=== PATIENT | female | born 1980 | race Caucasian/White ===

== ENCOUNTER 2019-05-27 17:27 | Observation (INO) | payer BC ==
--- NOTE | 2019-05-27 18:34 | RAD REPORT ---
EXAM DESCRIPTION: CT - Head Brain Wo Cont - 05/27/2019 6:26 pm CLINICAL HISTORY: Headache COMPARISON: None. TECHNIQUE: Computed axial tomography of the head was obtained. IV contrast was not requested. All CT scans are performed using dose optimization technique as appropriate and may include automated exposure control or mA/KV adjustment according to patient size. FINDINGS: An intracranial bleed is not seen . The ventricles are normal in caliber. No extra-axial fluid collection is noted. Fluid within the sinuses/ mastoids is not seen. IMPRESSION: No acute intracranial abnormality is seen. If patient's symptoms persist MRI of the bra in would be recommended.
[2019-05-27] MEDS ORDERED: ONDANSETRON 4 MG/2 ML VIAL ONE ×2 (18:39→20:32)
[2019-05-27] MEDS ORDERED: NA CHLORIDE 0.9% 1,000 ML ONE ×2 (18:39→19:48)
[2019-05-27] MEDS ORDERED: KETOROLAC 30 MG/ML INJ ONE (18:40)
--- NOTE | 2019-05-27 18:48 | RAD REPORT ---
EXAM DESCRIPTION: [facility] Single View05/27/2019 6:38 pm CLINICAL HISTORY: cough COMPARISON: 2012 FINDINGS: The lungs appear clear of acute infiltrate. The heart is normal size IMPRESSION: No acute abnormalities displayed
[2019-05-27 19:12] LABS: Absolute Lymphocytes (CBC) 3.1 K/uL (0.7-4.9); Basophils % 0.8 % (0-1.3); Hematocrit 34.6 % (36.0-45.0); Lymphocytes % 40.3 % (15.3-44.8); MPV 8.2 fL (7.6-11.3); RBC Red Blood Cell Count 3.69 M/uL (3.86-4.86)
[2019-05-27 19:15] LABS: Protime INR 1.08
[2019-05-27 19:31] LABS: ALT/SGPT 19 U/L (12-78); AST/SGOT 11 U/L (15-37); Albumin 3.9 g/dL (3.4-5.0); Alkaline Phosphatase 68 U/L (45-117); BUN Blood Urea Nitrogen 11 mg/dL (7-18); Bicarbonate 30 mmol/L (21-32); Bilirubin Direct 0.1 mg/dL (0-0.2); Bilirubin Total 0.4 mg/dL (0.2-1.0); Glucose Level 95 mg/dL (74-106); Lipase 82 U/L (73-393); Magnesium 2.1 mg/dL (1.8-2.4); NT PRO-BNP 38 pg/mL (<125); Potassium 3.9 mmol/L (3.5-5.1); Protein, Total 8.1 g/dL (6.4-8.2); Sodium Level 138 mmol/L (136-145); Troponin (Emerg Dept Use Only) < 0.02 ng/mL (0.0-0.045)
[2019-05-27 20:11] LABS: Urine Blood NEGATIVE (NEG); Urine Glucose NEGATIVE (NEG); Urine Protein NEGATIVE (NEG); Urine Specific Gravity 1.015 (1.005-1.030); Urine pH 6.5 (5.0-7.0)
--- NOTE | 2019-05-27 20:29 | ER ---
Nurse's Notes [facility] Name: Naz Boyle Age: 39 yrs Sex: Female : 1980 Arrival Date: 05/27/2019 Time: 17:28 Bed 20 Private MD: Diagnosis: Migraine;Urinary tract infection, site not specified;Hypotension-on midorone Presentation: 05/27 17:29 Presenting complaint: Patient states: occipital and temporal headache started Arash, sv photosensitivity, nausea, blurry vision started yesterday. Transition of care: patient was not received from another setting of care. Onset of symptoms was May 24, 2019. Risk Assessment: Do you want to hurt yourself or someone else? Patient reports no desire to harm self or others. Care prior to arrival: Medication(s) given: Motrin, taken at 1200 today. 17:29 Method Of Arrival: Wheelchair sv 17:29 Acuity: MIGUEL 3 sv 17:38 Initial Sepsis Screen: Does the patient meet any 2 criteria? No. Patient's initial rb1 sepsis screen is negative. Does the patient have a suspected source of infection? No. Patient's initial sepsis screen is negative. Triage Assessment: 17:38 Headache History: The patient has had previous headaches and this one is similar to rb1 previous episodes. 17:38 Pain: Also complains of nausea, photophobia. rb1 Historical: - Allergies: 17:32 No Known Allergies; sv - PMHx: 17:32 Seizures; Hypothyroidism; hypotension; Lupus; Rheumatoid Arthritis; RLS; Bradycardia; sv - PSHx: 17:32 Appendectomy; Hysterectomy; ; sv - Immunization history:: Adult Immunizations up to date. - Ebola Screening: : Patient negative for fever greater than or equal to 101.5 degrees Fahrenheit, and additional compatible Ebola Virus Disease symptoms. - Family history:: not pertinent. - Social history:: Smoking status: Patient uses tobacco products. Screenin:38 Abuse screen: Denies threats or abuse. Nutritional screening: No deficits noted. rb1 Tuberculosis screening: No symptoms or risk factors identified. Fall Risk None identified. Assessment: 17:38 General: Appears uncomfortable, Behavior is calm, cooperative. Pain: Complains of pain rb1 in head Pain currently is 9 out of 10 on a pain scale. at worst was 10 out of 10 on a pain scale. Pain began Arash. Neuro: Level of Consciousness is awake, alert, obeys commands, Oriented to person, place, time, situation. Neuro: Reports blurred vision headache occipital area, bilateral temples photophobia. Cardiovascular: Capillary refill < 3 seconds is brisk in bilateral fingers. Respiratory: Airway is patent Respiratory effort is even, unlabored, Respiratory pattern is regular, symmetrical. GI: Reports nausea. : No signs and/or symptoms were reported regarding the genitourinary system. Derm: Skin is pink, warm \T\ dry. Musculoskeletal: Range of motion: intact in all extremities. 18:35 Reassessment: Patient appears in no apparent distress at this time. No changes from rb1 previously documented assessment. 19:10 Reassessment: Pt reports that blood pressure is low normally. General: Appears in no tl2 apparent distress. Behavior is calm, drowsy. Pain: Complains of pain in right base of the skull Pain currently is 8 out of 10 on a pain scale. Neuro: Level of Consciousness is awake, obeys commands, Oriented to person, place, time, situation. Cardiovascular: Denies chest pain. Respiratory: Airway is patent Respiratory effort is even, unlabored, Respiratory pattern is regular. GI: Reports nausea. : No signs and/or symptoms were reported regarding the genitourinary system. Derm: Skin is pink, warm \T\ dry. Vital Signs: 17:32 BP 83 / 53; Pulse 64; Resp 16; Temp 98; Pulse Ox 97% ; Weight 77.11 kg; Height 5 ft. 11 sv in. (180.34 cm); 18:30 BP 85 / 53; Pulse 53; Resp 16; Pulse Ox 100% on R/A; rb1 19:28 BP 84 / 59; Pulse 54; Resp 18; Pulse Ox 96% on R/A; tl2 20:08 BP 90 / 60; Pulse 57; Resp 10; Pulse Ox 98% on R/A; tl2 21:06 BP 83 / 56; Pulse 61; Resp 12; Pulse Ox 95% on R/A; tl2 17:32 Body Mass Index 23.71 (77.11 kg, 180.34 cm) sv ED Course: 17:28 Patient arrived in ED. as 17:30 Triage completed. sv 17:33 Arm band placed on. sv 17:38 Patient has correct armband on for positive identification. Bed in low position. Call rb1 light in reach. Side rails up X 1. Pulse ox on. NIBP on. 17:46 Any Schafer RN is Primary Nurse. rb1 17:48 Pramod Sanchez MD is Attending Physician. anneliese 18:26 CT Head Brain wo Cont In Process Unspecified. EDMS 18:40 XRAY Chest (1 view) In Process Unspecified. EDMS 18:45 Missed attempt(s): 22 gauge in right antecubital area. rb1 18:50 Inserted saline lock: 22 gauge in left antecubital area, using aseptic technique. Blood rb1 collected. 19:05 Report given to LIZZY Rivas. rb1 20:25 Dafne Larry MD is Hospitalizing Provider. anneliese 21:06 No provider procedures requiring assistance completed. Patient admitted, IV remains in tl2 place. intact, No redness/swelling at site. Administered Medications: 18:50 Drug: NS 0.9% 1000 ml Route: IV; Rate: 1 bolus; Site: left antecubital; rb1 19:50 Follow up: IV Status: Completed infusion; IV Intake: 1000ml tl2 18:50 Drug: Zofran 4 mg Route: IVP; Site: left antecubital; rb1 19:30 Follow up: Response: No adverse reaction tl2 18:50 Drug: TORadol 30 mg Route: IVP; Site: left antecubital; rb1 19:30 Follow up: Response: No adverse reaction; Pain is unchanged, physician notified tl2 19:51 Drug: NS 0.9% 1000 ml Route: IV; Rate: 125 ml/hr; Site: left antecubital; tl2 20:41 Drug: fentaNYL (PF) 25 mcg Route: IVP; Site: left antecubital; tl2 21:30 Follow up: Response: No adverse reaction; Pain is decreased; RASS: Drowsy (-1) tl2 20:42 Drug: Zofran 4 mg Route: IVP; Site: left antecubital; tl2 21:00 Follow up: Response: No adverse reaction tl2 20:42 Drug: Rocephin 1 grams Route: IV; Rate: per protocol; Site: left antecubital; tl2 05/28 00:58 Follow up: IV Status: Completed infusion; IV Intake: 10ml tl2 01:00 Not Given (Other Intervention Used): fentaNYL (PF) 25 mcg IVP once; RASS on ADMIN: tl2 Combtv4, Very Agttd3, Agttd2, Rstlss1, AlertClm0, Drwsy-1, Lt Sdtn-2, Mod Sdtn-3, Dp Sdtn-4, UnArsble-5 Intake: 05/27 19:50 IV: 1000ml; Total: 1000ml. tl2 05/28 00:58 IV: 10ml; Total: 1010ml. tl2 Outcome: 05/27 20:27 Decision to Hospitalize by Provider. anneliese 21:06 Admitted to ER Hold. Please see [facility] for further documentation. tl2 21:06 Condition: stable 21:06 Discharge instructions given to patient, family. 05/28 12:13 Patient left the ED. em1 Signatures: Dispatcher [employer] Chloe Estevez RN RN Pramod Perkins MD MD cha Martinez, Amelia as Martinez, Eric em1 Any Schafer, RN RN rb1 Evelyn Gary, LIZZY RN tl2 Corrections: (The following items were deleted from the chart) 05/27 17:33 17:32 Pulse 64bpm; Resp 16bpm; Pulse Ox 97%; Temp 98F; 77.11 kg; Height 5 ft. 11 in.; sv BMI: 23.7; sv 19:02 18:50 NS 0.9% 1000 ml IV at 125 ml/hr in left antecubital rb1 rb1
--- NOTE | 2019-05-27 20:30 | EDPHYS ---
Physician Documentation [facility] Name: Naz Boyle Age: 39 yrs Sex: Female : 1980 Arrival Date: 05/27/2019 Time: 17:28 Bed 20 Private MD: ED Physician Pramod Sanchez HPI: 05/27 20:22 This 39 yrs old Female presents to ER via Wheelchair with complaints of anneliese Headache, Blurred Vision, Nausea. 20:22 The patient complains of pain to the top of head, forehead, left frontal area, left anneliese side of the back of head, left occipital area, left base of the skull, right frontal area, right side of the back of head, right occipital area and right base of the skull. The patient describes the headache as constant. Onset: The symptoms/episode began/occurred 4 day(s) ago. Associated signs and symptoms: Pertinent positives: malaise, nausea, weakness. Severity of symptoms: At its worst the pain was moderate, in the emergency department the pain is unchanged. Headache History: The patient has had previous headaches and this one is similar to previous episodes. The symptoms are alleviated by Darkened room, remaining still, sleep, the symptoms are aggravated by lights, movement, noise, stress. The patient has experienced similar episodes in the past, multiple times. Historical: - Allergies: 17:32 No Known Allergies; sv - PMHx: 17:32 Seizures; Hypothyroidism; hypotension; Lupus; Rheumatoid Arthritis; RLS; Bradycardia; sv - PSHx: 17:32 Appendectomy; Hysterectomy; ; sv - Immunization history:: Adult Immunizations up to date. - Ebola Screening: : Patient negative for fever greater than or equal to 101.5 degrees Fahrenheit, and additional compatible Ebola Virus Disease symptoms. - Family history:: not pertinent. - Social history:: Smoking status: Patient uses tobacco products. ROS: 20:22 Constitutional: Negative for fever, chills, and weight loss, Eyes: Negative for injury, anneliese pain, redness, and discharge, ENT: Negative for injury, pain, and discharge, Neck: Negative for injury, pain, and swelling, Cardiovascular: Negative for chest pain, palpitations, and edema, Respiratory: Negative for shortness of breath, cough, wheezing, and pleuritic chest pain, Back: Negative for injury and pain, : Negative for injury, bleeding, discharge, and swelling, MS/Extremity: Negative for injury and deformity, Skin: Negative for injury, rash, and discoloration, Psych: Negative for depression, anxiety, suicide ideation, homicidal ideation, and hallucinations, Allergy/Immunology: Negative for hives, rash, and allergies, Endocrine: Negative for neck swelling, polydipsia, polyuria, polyphagia, and marked weight changes, Hematologic/Lymphatic: Negative for swollen nodes, abnormal bleeding, and unusual bruising. 20:22 Abdomen/GI: Positive for nausea. 20:22 Neuro: Positive for dizziness, headache, weakness. Exam: 20:22 Constitutional: This is a well developed, well nourished patient who is awake, alert, anneliese and in no acute distress. Head/Face: Normocephalic, atraumatic. Eyes: Pupils equal round and reactive to light, extra-ocular motions intact. Lids and lashes normal. Conjunctiva and sclera are non-icteric and not injected. Cornea within normal limits. Periorbital areas with no swelling, redness, or edema. ENT: Nares patent. No nasal discharge, no septal abnormalities noted. Tympanic membranes are normal and external auditory canals are clear. Oropharynx with no redness, swelling, or masses, exudates, or evidence of obstruction, uvula midline. Mucous membranes moist. Neck: Trachea midline, no thyromegaly or masses palpated, and no cervical lymphadenopathy. Supple, full range of motion without nuchal rigidity, or vertebral point tenderness. No Meningismus. Chest/axilla: Normal chest wall appearance and motion. Nontender with no deformity. No lesions are appreciated. Cardiovascular: Regular rate and rhythm with a normal S1 and S2. No gallops, murmurs, or rubs. Normal PMI, no JVD. No pulse deficits. Respiratory: Lungs have equal breath sounds bilaterally, clear to auscultation and percussion. No rales, rhonchi or wheezes noted. No increased work of breathing, no retractions or nasal flaring. Abdomen/GI: Soft, non-tender, with normal bowel sounds. No distension or tympany. No guarding or rebound. No evidence of tenderness throughout. Back: No spinal tenderness. No costovertebral tenderness. Full range of motion. Skin: Warm, dry with normal turgor. Normal color with no rashes, no lesions, and no evidence of cellulitis. MS/ Extremity: Pulses equal, no cyanosis. Neurovascular intact. Full, normal range of motion. Neuro: Awake and alert, GCS 15, oriented to person, place, time, and situation. Cranial nerves II-XII grossly intact. Motor strength 5/5 in all extremities. Sensory grossly intact. Cerebellar exam normal. Normal gait. Psych: Awake, alert, with orientation to person, place and time. Behavior, mood, and affect are within normal limits. 20:22 Neck: ROM/movement: is normal, no acute changes, limited range of motion, is not appreciated, Meningeal signs: are not present, Kernig's sign is negative, Brudzinski's sign is negative. Vital Signs: 17:32 BP 83 / 53; Pulse 64; Resp 16; Temp 98; Pulse Ox 97% ; Weight 77.11 kg; Height 5 ft. 11 sv in. (180.34 cm); 18:30 BP 85 / 53; Pulse 53; Resp 16; Pulse Ox 100% on R/A; rb1 19:28 BP 84 / 59; Pulse 54; Resp 18; Pulse Ox 96% on R/A; tl2 20:08 BP 90 / 60; Pulse 57; Resp 10; Pulse Ox 98% on R/A; tl2 21:06 BP 83 / 56; Pulse 61; Resp 12; Pulse Ox 95% on R/A; tl2 17:32 Body Mass Index 23.71 (77.11 kg, 180.34 cm) sv MDM: 17:49 Patient medically screened. [facility] 20:22 Data reviewed: vital signs, nurses notes, lab test result(s), EKG, radiologic studies, [facility] CT scan, plain films. 05/27 17:54 Order name: Basic Metabolic Panel; Complete Time: 20:20 [facility] 05/27 17:54 Order name: CBC with Diff; Complete Time: 20:20 [facility] 05/27 17:54 Order name: LFT's; Complete Time: 20:20 [facility] 05/27 17:54 Order name: Magnesium; Complete Time: 20:20 [facility] 05/27 17:54 Order name: NT PRO-BNP; Complete Time: 20:20 [facility] 05/27 17:54 Order name: PT-INR; Complete Time: 20:20 [facility] 05/27 17:54 Order name: Troponin (emerg Dept Use Only); Complete Time: 20:20 [facility] 05/27 17:54 Order name: Lipase; Complete Time: 20:20 [facility] 05/27 17:54 Order name: Urine Culture [facility] 05/27 19:02 Order name: Urine Dipstick--Ancillary (enter results); Complete Time: 20:20 [facility] 05/27 19:02 Order name: Urine --Ancillary (enter results); Complete Time: 20:20 [facility] 05/28 06:39 Order name: T4 Free [facility] 05/28 06:39 Order name: Thyroid Stimulating Hormone [facility] 05/28 06:39 Order name: Cortisol [facility] 05/27 17:54 Order name: XRAY Chest (1 view); Complete Time: 20:20 [facility] 05/27 17:54 Order name: EKG; Complete Time: 17:56 [facility] 05/27 17:54 Order name: Cardiac monitoring; Complete Time: 19:35 [facility] 05/27 17:54 Order name: EKG - Nurse/Tech; Complete Time: 19:35 [facility] 05/27 17:54 Order name: CT Head Brain wo Cont; Complete Time: 20:20 [facility] 05/27 21:12 Order name: CONS Pharmacy Consult [facility] 05/27 21:12 Order name: Regular [facility] 05/28 08:30 Order name: MRI [facility] 05/27 17:54 Order name: IV Saline Lock; Complete Time: 19:24 [facility] 05/27 17:54 Order name: Labs collected and sent; Complete Time: 19:24 [facility] 05/27 17:54 Order name: O2 Per Protocol; Complete Time: 19:24 [facility] 05/27 17:54 Order name: O2 Sat Monitoring; Complete Time: 19:24 [facility] 05/27 17:54 Order name: Urine Dipstick-Ancillary (obtain specimen); Complete Time: 19:26 [facility] Administered Medications: 18:50 Drug: NS 0.9% 1000 ml Route: IV; Rate: 1 bolus; Site: left antecubital; rb1 19:50 Follow up: IV Status: Completed infusion; IV Intake: 1000ml tl2 18:50 Drug: Zofran 4 mg Route: IVP; Site: left antecubital; rb1 19:30 Follow up: Response: No adverse reaction tl2 18:50 Drug: TORadol 30 mg Route: IVP; Site: left antecubital; rb1 19:30 Follow up: Response: No adverse reaction; Pain is unchanged, physician notified tl2 19:51 Drug: NS 0.9% 1000 ml Route: IV; Rate: 125 ml/hr; Site: left antecubital; tl2 20:41 Drug: fentaNYL (PF) 25 mcg Route: IVP; Site: left antecubital; tl2 21:30 Follow up: Response: No adverse reaction; Pain is decreased; RASS: Drowsy (-1) tl2 20:42 Drug: Zofran 4 mg Route: IVP; Site: left antecubital; tl2 21:00 Follow up: Response: No adverse reaction tl2 20:42 Drug: Rocephin 1 grams Route: IV; Rate: per protocol; Site: left antecubital; tl2 03 00:58 Follow up: IV Status: Completed infusion; IV Intake: 10ml tl2 01:00 Not Given (Other Intervention Used): fentaNYL (PF) 25 mcg IVP once; RASS on ADMIN: tl2 Combtv4, Very Agttd3, Agttd2, Rstlss1, AlertClm0, Drwsy-1, Lt Sdtn-2, Mod Sdtn-3, Dp Sdtn-4, UnArsble-5 Disposition: 05/27/19 20:27 Hospitalization ordered by Dafne Larry for Inpatient Admission. Preliminary diagnosis are Migraine, Urinary tract infection, site not specified, Hypotension - on midorone. - Bed requested for [facility] ER HOLD. - Status is Inpatient Admission. em1 - Condition is Fair. - Problem is new. - Symptoms have improved. UTI on Admission? Yes Signatures: Dispatcher [employer] EDChloe Warren RN Yue Perez RN Pramod Arteaga MD MD cha Martinez, Eric em1 Any Schafer, RN RN rb1 Evelyn Gary RN RN tl2 Corrections: (The following items were deleted from the chart) 05/27 20:38 20:27 Hospitalization Ordered by Dafne Larry MD for Inpatient Admission. Preliminary mw diagnosis is Migraine; Urinary tract infection, site not specified; Hypotension - on midorone. Bed requested for Telemetry/MedSurg (Inpatient). Status is Inpatient Admission. Condition is Fair. Problem is new. Symptoms have improved. UTI on Admission? Yes. anneliese 05/28 12:13 05/27 20:38 05/27/2019 20:27 Hospitalization Ordered by Dafne Larry MD for Inpatient em1 Admission. Preliminary diagnosis is Migraine; Urinary tract infection, site not specified; Hypotension - on midorone. Bed requested for [facility] ER HOLD. Status is Inpatient Admission. Condition is Fair. Problem is new. Symptoms have improved. UTI on Admission? Yes. mw
[2019-05-27] MEDS ORDERED: SUMATRIPTAN SUCC 6MG/0.5ML VIAL SQ STA (20:31)
[2019-05-27] MEDS ORDERED: FENTANYL CITR 100 MCG/2 ML ONE (20:32)
[2019-05-27] MEDS ORDERED: CEFTRIAXONE/SWI 1gm 1 GM/10 ML SYR ONE (20:33)
[2019-05-27] MEDS ORDERED: ACETAMINOPHEN 500 MG TAB PO PRN (21:05)
[2019-05-27] MEDS ORDERED: ONDANSETRON 4 MG/2 ML VIAL IV PRN (21:05)
[2019-05-27] MEDS ORDERED: NA CHLORIDE 0.9% 1,000 ML IV SCH (22:00)
[2019-05-27 22:15] VITALS: BMI 28.3
[2019-05-27] MEDS ORDERED: SUMATRIPTAN SUCC 6MG/0.5ML VIAL SQ ONE (23:34)
--- NOTE | 2019-05-28 03:54 | P.HP ---
Certification for Inpatient Patient admitted to: Observation With expected LOS: <2 Midnights Patient will require the following post-hospital care: None Practitioner: I am a practitioner with admitting privileges, knowledge of patient current condition, hospital course, and medical plan of care. Services: Services provided to patient in accordance with Admission requirements found in Title 42 Section 412.3 of the Code of Federal Regulations Patient History Date of Service: 05/27/19 Reason for admission: Headache; hypotension History of Present Illness: Patient is a 39-year-old female who came to the hospital with a headache in the left frontal region and the left occipital region. She also had a headache that was on the right side of her head. Symptoms have been going off the last 4 days. She has had photosensitivity and blurry vision. Her symptoms are worsened by any kind of light or movement. Has a history of migraine headache. She also has a history of lupus. She will be admitted to the hospital for observation. Allergies No Known Allergies Allergy (Unverified 09/27/12 14:54) Home Medications: Gabapentin 100 mg PO QID 05/27/19 Levetiracetam [Keppra] 1,500 mg PO BID 05/27/19 Levothyroxine [Synthroid] 175 mcg PO DAILY 05/27/19 Rosuvastatin Calcium [Crestor] 10 mg PO DAILY 05/27/19 Trazodone [Desyrel*] 50 mg PO BEDTIME 05/27/19 Varenicline Tartrate [Chantix] 1 mg PO DAILY 05/27/19 - Past Medical/Surgical History Has patient received pneumonia vaccine in the past: No Diabetic: No -: Seizures -: hypothyroidism -: hypotension -: lupus -: Rheumatoid arthritis -: Restless leg syndrome -: Bradycardia -: Appendectomy -: hysterectomy -: - Family History Father Family History: Reviewed- Non-Contributory - Social History Smoking Status: Former smoker Alcohol use: No CD- Drugs: No Caffeine use: No Place of Residence: Home Review of Systems 10-point ROS is otherwise unremarkable Physical Examination - Vital Signs Temperature: 98.7 F Blood Pressure: 96/71 Pulse: 68 Respirations: 16 Pulse Ox (%): 97 - Physical Exam General: Alert, In no apparent distress, Oriented x3 HEENT: Atraumatic, PERRLA, Mucous membr. moist/pink, EOMI, Sclerae nonicteric Neck: Supple, 2+ carotid pulse no bruit, No LAD, Without JVD or thyroid abnormality Respiratory: Clear to auscultation bilaterally, Normal air movement Cardiovascular: Regular rate/rhythm, Normal S1 S2, No murmurs Gastrointestinal: Normal bowel sounds, Soft and benign, Non-distended, No tenderness, No rebound, No guarding Musculoskeletal: No clubbing, No swelling, No tenderness Integumentary: No rashes Neurological: Normal gait, Normal speech, Normal strength at 5/5 x4 extr, Normal tone, Sensation intact, Cranial nerves 3-12 intact, Normal affect Lymphatics: No axilla or inguinal lymphadenopathy - Studies Laboratory Data (last 24 hrs) 05/27/19 18:50: PT 12.7 H, INR 1.08 05/27/19 18:50: WBC 7.7, Hgb 11.9 L, Hct 34.6 L, Plt Count 200 05/27/19 18:50: Sodium 138, Potassium 3.9, BUN 11, Creatinine 0.76, Glucose 95, Magnesium 2.1, Total Bilirubin 0.4, AST 11 L, ALT 19, Alkaline Phosphatase 68, Lipase 82 Assessment & Plan - Problems (Diagnosis) (1) Migraine headache with aura Current Visit: Yes Status: Acute (2) Hypotension Current Visit: Yes Status: Acute (3) SLE (systemic lupus erythematosus) Current Visit: Yes Status: Acute (4) Rheumatoid arthritis Current Visit: Yes Status: Acute - Plan Plan: 1. IV hydration 2. MRI of the brain 3. Thyroid and cortisol level 4. Imitrex subcu x1; Imitrex 50 mg p.o. daily 5. Autoimmune disease; outpatient rheumatology follow-up 6. GI and DVT prophylaxis Discharge Plan: Home Plan to discharge in: 24 Hours - Advance Directives Does patient have a Living Will: No Does patient have a Durable POA for Healthcare: No - Code Status/Comfort Care Code Status Assessed: Yes Code Status: Full Code Critical Care: No Time Spent Managing PTS Care (In Minutes): 35
--- NOTE | 2019-05-28 03:58 | P.DS ---
Discharge Date: 05/28/19 Disposition: ROUTINE DISCHARGE Discharge Condition: GOOD Reason for Admission: Headache; hypotension - Problems (1) Migraine headache with aura Status: Acute (2) Hypotension Status: Acute (3) SLE (systemic lupus erythematosus) Status: Acute (4) Rheumatoid arthritis Status: Acute Brief History of Present Illness: Patient is a 39-year-old female who came to the hospital with a headache in the left frontal region and the left occipital region. She also had a headache that was on the right side of her head. Symptoms have been going off the last 4 days. She has had photosensitivity and blurry vision. Her symptoms are worsened by any kind of light or movement. Has a history of migraine headache. She also has a history of lupus. She will be admitted to the hospital for observation. Hospital Course: Patient's headache has resolved. MRI of the brain was negative. Patient is stable for discharge home. Patient will need outpatient followup with neurology. Vital Signs/Physical Exam: Temp Pulse Resp BP Pulse Ox 98.7 F 68 16 96/71 97 05/28/19 03:54 05/28/19 03:54 05/28/19 03:54 05/28/19 03:54 05/28/19 03:54 General: Alert, In no apparent distress, Oriented x3 Laboratory Data at Discharge: WBC 7.7 K/uL (4.3-10.9) 05/27/19 18:50 Hgb 11.9 g/dL (12.0-15.0) L 05/27/19 18:50 Hct 34.6 % (36.0-45.0) L 05/27/19 18:50 Plt Count 200 K/uL (152-406) 05/27/19 18:50 PT 12.7 SECONDS (9.5-12.5) H 05/27/19 18:50 INR 1.08 05/27/19 18:50 Sodium 138 mmol/L (136-145) 05/27/19 18:50 Potassium 3.9 mmol/L (3.5-5.1) 05/27/19 18:50 BUN 11 mg/dL (7-18) 05/27/19 18:50 Creatinine 0.76 mg/dL (0.55-1.3) 05/27/19 18:50 Glucose 95 mg/dL (74-106) 05/27/19 18:50 Magnesium 2.1 mg/dL (1.8-2.4) 05/27/19 18:50 Total Bilirubin 0.4 mg/dL (0.2-1.0) 05/27/19 18:50 AST 11 U/L (15-37) L 05/27/19 18:50 ALT 19 U/L (12-78) 05/27/19 18:50 Alkaline Phosphatase 68 U/L (45-117) 05/27/19 18:50 Lipase 82 U/L (73-393) 05/27/19 18:50 Home Medications: Gabapentin 100 mg PO QID 05/27/19 Levetiracetam [Keppra] 1,500 mg PO BID 05/27/19 Levothyroxine [Synthroid*] 175 mcg PO DAILY 05/27/19 Rosuvastatin Calcium [Crestor] 10 mg PO DAILY 05/27/19 Trazodone [Desyrel*] 50 mg PO BEDTIME 05/27/19 Varenicline Tartrate [Chantix] 1 mg PO DAILY 05/27/19 Lacosamide [Vimpat*] 50 mg PO BID 05/28/19 Sumatriptan [Imitrex*] 50 mg PO PRN #8 tab 05/28/19 New Medications: Sumatriptan [Imitrex*] 50 mg PO PRN #8 tab Patient Discharge Instructions: OK TO DC IV AND DC HOME. FOLLOW-UP WITH PRIMARY CARE PROVIDER IN 1-2 WEEKS. FOLLOW-UP WITH NEUROLOGY IN 1-2 WEEKS. RETURN TO THE ER IF symptoms worsen. CALL or TEXT DR. AVILA AT [phone] IF ANY QUESTIONS REGARDING HOSPITAL STAY. PLEASE CALL THE FLOOR AT [phone] IF ANY MEDICATION OR NURSING QUESTIONS. Diet: Regular Activity: Fall precautions Time spent managing pt's care (in minutes): 20
[2019-05-28] MEDS ORDERED: SUMATRIPTAN SUCCI 50 MG TAB PO SCH ×2 (06:00→22:00)
[2019-05-28] MEDS ORDERED: LEVOTHYROXINE SOD 0.1 MG TAB ONE (06:13)
[2019-05-28] MEDS ORDERED: LEVOTHYROXINE SOD 0.075 MG TAB ONE (06:13)
[2019-05-28] MEDS ORDERED: SUMATRIPTAN SUCCI 50 MG TAB PO ONE (06:14)
[2019-05-28] MEDS ORDERED: LEVOTHYROXINE SOD 0.1 MG TAB PO SCH (06:30)
[2019-05-28] MEDS ORDERED: LEVOTHYROXINE SOD 0.075 MG TAB PO SCH (06:30)
[2019-05-28 06:38] LABS: Thyroid Stimulating Hormone 4.31 uIU/mL (0.360-3.740)
[2019-05-28] MEDS ORDERED: HYDROCORTISONE SUC 100 MG INJ IV SCH (08:00)
--- NOTE | 2019-05-28 08:16 | RAD REPORT ---
EXAM DESCRIPTION: MRI - Brain Wo Cont - 05/28/2019 7:17 am CLINICAL HISTORY: migraine headache COMPARISON: Head Brain Wo Cont dated 05/27/2019 TECHNIQUE: Sagittal T1-weighted images were obtained along with axial PD, heavily T2-weighted and T2 -FLAIR images. Axial DWI and ADC mapping sequences were also obtained along with coronal heavily T2-w eighted images. FINDINGS: No intracranial hemorrhage, mass or acute infarction. There is no edema or shift of midlin e structures. No extra-axial fluid collections. Salazar-matter/white matter junction is preserved. Signa l voids are seen as a normal finding in the major intracranial vessels. A single punctate focus of hyperintense T2 signal is present in the right frontal lobe white matter. This finding is nonspecific. Such signal abnormality can be seen in migraine headache patients. No sella or supra sella abnormality. No globe or orbital content abnormality. Mastoid air cells and paranasal sinuses are clear. IMPRESSION: Negative non-contrast MRI of the Brain for acute or significant finding.
[2019-05-28] MEDS ORDERED: levETIRAcetam 500 MG TAB PO SCH (09:00)
[2019-05-28] MEDS ORDERED: GABAPENTIN 100 MG CAP PO SCH (09:00)
[2019-05-28] MEDS ORDERED: ROSUVASTATIN 10 MG TAB PO SCH (09:00)
[2019-05-28] MEDS ORDERED: HYDROCORTISONE SUC 100 MG INJ ONE (09:54)
[2019-05-28] MEDS ORDERED: WATER FOR INJ,STERILE 10 ML ONE (09:55)
[2019-05-28] MEDS ORDERED: levETIRAcetam 500 MG TAB ONE (09:55)
[2019-05-28] MEDS ORDERED: ONDANSETRON 4 MG/2 ML VIAL ONE (09:58)
[2019-05-28] MEDS ORDERED: WATER FOR INJ,STERILE 10 ML IV SCH (10:00)
[2019-05-28 11:30] VITALS: BP 101/71; TEMP 98.6
[2019-05-28 12:32] VITALS: O2SAT 95
--- NOTE | 2019-05-28 13:49 | EKG ---
Test Date: 2019-05-27 Test Time: 19:33:15 Dance Entertainer: LEANDRO MEASUREMENT RESULTS: Intervals: Rate: 53 [place]: 148 QRSD: 80 QT: 464 QTc: 435 [place]: P: 48 [place]: 148 QRS: 45 T: 43 INTERPRETIVE STATEMENTS: Sinus bradycardia Otherwise normal ECG No previous ECG available for comparison Electronically Signed On 05-28-19 13:47:04 LOOP DRIER OPERATOR by Clement Dawson
[2019-05-28] MEDS ORDERED: TRAZODONE 50 MG TABLET PO SCH (21:00)
== END 2019-05-28 11:58 | disposition home or self-care (01) ==
LOC: ER 17:27 → ERHOLD 21:06
PROVIDERS: ADMIT Hospitalist; ATTEND Hospitalist
DX: G43.109 Migraine with aura, not intractable, without status migrainosus (principal); I95.9 Hypotension, unspecified; M32.9 Systemic lupus erythematosus, unspecified; M06.9 Rheumatoid arthritis, unspecified; E03.9 Hypothyroidism, unspecified; Z87.891 Personal history of nicotine dependence
CPT/HCPCS: 96365; 96361; 93005; 87088; 85025; 87086; 80048; 36415; 83735; 81025; 85610; 80076; 84443; 81003; 84484; 84439; 83690; 82533; 83880; 70450; 71045; 70551; 96375; 99285; 96366; J3030; J3010; J0696; J7030 ×2; J1720; J2405 ×3; G0378 ×3

== ENCOUNTER 2020-01-10 09:09 | Inpatient (IN) | payer BC ==
[2020-01-10] MEDS ORDERED: DIPHENHYDRAMINE 50 MG/ML VIAL ONE (10:11)
[2020-01-10] MEDS ORDERED: NA CHLORIDE 0.9% 500 ML ONE (10:11)
[2020-01-10] MEDS ORDERED: METOCLOPRAMIDE 10 MG/2mL INJ ONE (10:11)
[2020-01-10] MEDS ORDERED: dexAMETHasone 10 MG/ML VIAL ONE (10:11)
[2020-01-10 10:15] LABS: Absolute Lymphocytes (CBC) 2.5 K/uL (0.7-4.9); Basophils % 0.7 % (0-1.3); Hematocrit 36.8 % (36.0-45.0); Lymphocytes % 30.9 % (15.3-44.8); MPV 8.9 fL (7.6-11.3); RBC Red Blood Cell Count 4.13 M/uL (3.86-4.86)
--- NOTE | 2020-01-10 10:31 | RAD REPORT ---
EXAM DESCRIPTION: CT - Head Brain Wo Cont - 01/10/2020 9:57 am CLINICAL HISTORY: Headache COMPARISON: May 2019 TECHNIQUE: Computed axial tomography of the head was obtained. IV contrast was not requested. All CT scans are performed using dose optimization technique as appropriate and may include automated exposure control or mA/KV adjustment according to patient size. FINDINGS: An intracranial bleed is not seen . The ventricles are normal in caliber. No extra-axial fluid collection is noted. Fluid within the sinuses/ mastoids is not seen. IMPRESSION: No acute intracranial abnormality is seen. If patient's symptoms persist MRI of the bra in would be recommended.
[2020-01-10 10:35] LABS: ALT/SGPT 16 U/L (12-78); AST/SGOT 15 U/L (15-37); Albumin 3.5 g/dL (3.4-5.0); Alkaline Phosphatase 69 U/L (45-117); BUN Blood Urea Nitrogen 6 mg/dL (7-18); Bicarbonate 26 mmol/L (21-32); Bilirubin Total 0.3 mg/dL (0.2-1.0); Glucose Level 86 mg/dL (74-106); Potassium 4.1 mmol/L (3.5-5.1); Protein, Total 7.5 g/dL (6.4-8.2); Sodium Level 140 mmol/L (136-145); Troponin (Emerg Dept Use Only) < 0.02 ng/mL (0.0-0.045)
[2020-01-10] MEDS ORDERED: ALTEPLASE 100 ML IV ONE (11:17)
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
--- NOTE | 2020-01-10 12:10 | EDPHYS ---
Physician Documentation [facility] Name: Naz Boyle Age: 39 yrs Sex: Female : 1980 Arrival Date: 01/10/2020 Time: 09:11 Bed 10 Private MD: ED Physician HPI: 01/09 09:39 This 39 yrs old Female presents to ER via Unassigned with complaints of jmm Headache, Blurred Vision. 09:39 The patient complains of pain to the . Onset: The symptoms/episode began/occurred jmm gradually, yesterday. Associated signs and symptoms: Pertinent positives: paresthesias, Photophobia blurred vision. Headache History: The patient has had previous headaches and this one is less severe than previous episodes. The symptoms are alleviated by nothing. the symptoms are aggravated by nothing. The patient has experienced a previous episode. This is a 39 year old female with a history of hypothyroidism, migraines, neuro cardiogenic syncope, lupus that presents to the ED with complaints of headache beginning yesterday. Patient states she awoke this morning with blurred vision. Patient states approx 1.5 hours ago she developed tingling to the right side of her body. . 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 - Social history:: Smoking status: . ROS: 09:39 Constitutional: Negative for fever, chills, and weight loss, Cardiovascular: Negative jm for chest pain, palpitations, and edema, Respiratory: Negative for shortness of breath, cough, wheezing, and pleuritic chest pain. 09:39 Neuro: Positive for headache, numbness. 09:39 All other systems are negative. Exam: 09:39 Constitutional: This is a well developed, well nourished patient who is awake, alert, jmm and in no acute distress. Head/Face: atraumatic. Eyes: EOMI, no conjunctival erythema appreciated ENT: Moist Mucus Membranes Neck: Trachea midline, Supple Chest/axilla: Normal chest wall appearance and motion. Cardiovascular: Regular rate and rhythm. No edema appreciated Respiratory: Normal respirations, no respiratory distress appreciated Abdomen/GI: Non distended, soft Back: Normal ROM Skin: General appearance color normal MS/ Extremity: Moves all extremities, no obvious deformities appreciated, no edema noted to the lower extremities Psych: Behavior is normal, Mood is normal, Patient is cooperative and pleasant 09:39 Neuro: Orientation: is normal, Mentation: is normal, Memory: is normal. [facility] Vital Signs: 09:40 BP 112 / 76; Pulse 59; Resp 17; Temp 98.2(O); Pulse Ox 100% on R/A; Weight 86.18 kg tw2 (R); Height 5 ft. 10 in. (177.80 cm); Pain 8/10; 10:45 BP 107 / 76; Pulse 54; Resp 17; Pulse Ox 97% on R/A; tw2 11:40 BP 116 / 85; Pulse 54; Resp 17; Pulse Ox 97% on R/A; tw2 12:25 BP 117 / 89; Pulse 59; Resp 17; Pulse Ox 99% on R/A; em 13:55 BP 109 / 82; Pulse 57; Resp 17; Pulse Ox 99% on R/A; em 09:40 Body Mass Index 27.26 (86.18 kg, 177.80 cm) tw2 NIH Stroke Scale Scores: 09:50 NIHSS Score: 1 tw2 10:43 NIHSS Score: 11 tw2 11:25 NIHSS Score: 11 tw2 MDM: 09:39 Patient medically screened. [facility] 10:56 Data reviewed: vital signs, nurses notes. ED course: Patient notified the nurse she had jmm developed weakness. I reevaluated the patient, patient has no strength against gravity on right arm raise or right leg raise. I discussed the patient with Dr. Morton whom recommended TPA. 12:06 ED course: I discussed the patient with Dr. Delgado whom accepted admission. . [facility] 01/09 09:54 Order name: CBC with Diff; Complete Time: 10:41 [facility] 01/09 09:54 Order name: CMP; Complete Time: 10:41 [facility] 01/09 09:54 Order name: Troponin (emerg Dept Use Only); Complete Time: 10:41 [facility] 01/09 10:24 Order name: Glucose, Ancillary Testing; Complete Time: 10:41 [facility] 01/09 09:52 Order name: CT Head Brain wo Cont; Complete Time: 10:41 [facility] 01/09 12:09 Order name: MRA Head Wo Cont; Complete Time: 13:52 [facility] 01/09 14:56 Order name: T4 Free; Complete Time: 16:38 [facility] 01/09 14:56 Order name: Thyroid Stimulating Hormone; Complete Time: 16:38 [facility] 01/09 15:08 Order name: Urine Dipstick--Ancillary (enter results) 01/09 15:25 Order name: Urine Dipstick-Ancillary; Complete Time: 16:38 [facility] 01/09 09:54 Order name: Saline Lock; Complete Time: 10:14 [facility] 01/09 09:54 Order name: EKG - Nurse/Tech; Complete Time: 10:43 [facility] 01/09 09:54 Order name: Urine Dipstick-Ancillary (obtain specimen); Complete Time: 14:16 [facility] 01/09 12:55 Order name: EKG Electrocardiogram [facility] 01/09 13:53 Order name: Brain W/Wo Cont; Complete Time: 14:12 [facility] 01/09 13:54 Order name: MRA Neck W/Wo Cont; Complete Time: 14:12 [facility] 01/09 14:16 Order name: Straight Cath - Urine; Complete Time: 14:16 em 01/09 14:56 Order name: Physical Therapy Consult [facility] 01/09 14:56 Order name: Heart Healthy [facility] Administered Medications: 10:07 Drug: diphenhydrAMINE 12.5 mg Route: IVP; Site: left antecubital; tw2 11:38 Follow up: Response: No adverse reaction; Pain is unchanged, physician notified tw2 10:09 Drug: Decadron - Dexamethasone 10 mg Route: IVP; Site: left antecubital; tw2 11:20 Follow up: Response: No adverse reaction; Pain is unchanged, physician notified tw2 10:12 Drug: Reglan 20 mg Route: IVP; Site: left antecubital; tw2 11:20 Follow up: Response: No adverse reaction; Pain is unchanged, physician notified tw2 10:12 Drug: NS 0.9% 500 ml Route: IV; Rate: bolus; Site: left antecubital; tw2 11:20 Follow up: Response: No adverse reaction; IV Status: Completed infusion; IV Intake: tw2 500ml 11:25 Drug: Alteplase (Bolus for Stroke) - Activase 0.09 mg/kg {Co-Signature: [email or web address] ([facility] Geetha RN).} Route: IV Thrombolytics; Infused Over: 1 mins; 12:15 Follow up: Response: No adverse reaction; No change in condition em 12:15 Follow up: Response: No adverse reaction; No change in condition em 12:25 Follow up: Response: No adverse reaction; No change in condition em 11:47 Drug: Ativan 0.5 mg Route: IVP; Site: left antecubital; tw2 13:50 Follow up: Response: No adverse reaction em Point of Care Testing: Blood Glucose: 10:05 Blood Glucose: 90 mg/dL; tw2 Ranges: Critical Glucose Levels:Adult <50 mg/dl or >400 mg/dl <40 mg/dl or >180 mg/dl Disposition: 17:33 Co-signature as Attending Physician, Dimitri Hawkins MD. rn Disposition: 01/10/20 12:09 Hospitalization ordered by Justice Delgado for Inpatient Admission. Preliminary diagnosis is Cerebral infarction. - Bed requested for [facility] ER HOLD. - Status is Inpatient Admission. iw - Condition is Stable. - Problem is new. - Symptoms are unchanged. NIH Stroke Scale - NIH Stroke Score Date: 01/10/2020 Time: 09:50 Total Score = 1 1a. Level of Consciousness (LOC) - 0(Alert) 1b. Level of Consciousness (LOC) (Year \T\ Age) - 0(Both) 1c. LOC Commands (Open \T\ Closes Eyes/Creative Perfumer) - 0(Both) 2. Best Gaze (Lateral Gaze Paresis) - 0(Normal) 3. Visual Field Loss - 0(No visual loss) 4. Facial Palsy - 0(Normal) 5a. Left Arm: Motor (10-second hold) - 0(No drift) 5b. Right Arm: Motor (10-second hold) - 0(No drift) 6a. Left Leg: Motor (5-second hold - always test supine) - 0(No drift) 6b. Right Leg: Motor (5-second hold - always test supine) - 0(No drift) 7. Limb Ataxia (finger/nose \T\ heel/gould - test with eyes open) - 0(Absent) 8. Sensory Loss (pinprick arms/legs/face) - 1(Mild to moderate loss) 9. Best Language: Aphasia (description/naming/reading) - 0(No aphasia) 10. Dysarthria (speech clarity - read or repeat words) - 0(Normal) 11. Extinction and Inattention (visual/tactile/auditory/spatial/personal) - 0(No abnormality) Initials: 2 NIH Stroke Scale - NIH Stroke Score Date: 01/10/2020 Time: 10:43 Total Score = 11 1a. Level of Consciousness (LOC) - 1(Not Alert) 1b. Level of Consciousness (LOC) (Year \T\ Age) - 0(Both) 1c. LOC Commands (Open \T\ Closes Eyes/Creative Perfumer) - 0(Both) 2. Best Gaze (Lateral Gaze Paresis) - 0(Normal) 3. Visual Field Loss - 0(No visual loss) 4. Facial Palsy - 0(Normal) 5a. Left Arm: Motor (10-second hold) - 0(No drift) 5b. Right Arm: Motor (10-second hold) - 4(No movement) 6a. Left Leg: Motor (5-second hold - always test supine) - 0(No drift) 6b. Right Leg: Motor (5-second hold - always test supine) - 4(No movement) 7. Limb Ataxia (finger/nose \T\ heel/gould - test with eyes open) - 0(Absent) 8. Sensory Loss (pinprick arms/legs/face) - 1(Mild to moderate loss) 9. Best Language: Aphasia (description/naming/reading) - 0(No aphasia) 10. Dysarthria (speech clarity - read or repeat words) - 1(Mild to Moderate) 11. Extinction and Inattention (visual/tactile/auditory/spatial/personal) - 0(No abnormality) Initials: 2 NIH Stroke Scale - NIH Stroke Score Date: 01/10/2020 Time: 11:25 Total Score = 11 1a. Level of Consciousness (LOC) - 1(Not Alert) 1b. Level of Consciousness (LOC) (Year \T\ Age) - 0(Both) 1c. LOC Commands (Open \T\ Closes Eyes/Creative Perfumer) - 0(Both) 2. Best Gaze (Lateral Gaze Paresis) - 0(Normal) 3. Visual Field Loss - 0(No visual loss) 4. Facial Palsy - 0(Normal) 5a. Left Arm: Motor (10-second hold) - 0(No drift) 5b. Right Arm: Motor (10-second hold) - 4(No movement) 6a. Left Leg: Motor (5-second hold - always test supine) - 0(No drift) 6b. Right Leg: Motor (5-second hold - always test supine) - 4(No movement) 7. Limb Ataxia (finger/nose \T\ heel/gould - test with eyes open) - 0(Absent) 8. Sensory Loss (pinprick arms/legs/face) - 1(Mild to moderate loss) 9. Best Language: Aphasia (description/naming/reading) - 0(No aphasia) 10. Dysarthria (speech clarity - read or repeat words) - 1(Mild to Moderate) 11. Extinction and Inattention (visual/tactile/auditory/spatial/personal) - 0(No abnormality) Initials: tw2 Signatures: Dispatcher [employer] Ayana Santiago RN Derek Beckham PA PA [facility] Nicko Mack RN Carmina English RN RN iw Nieto, Roman, MD MD rn Wise, Tara, RN RN tw2 Jessica Fletcher RN [email or web address] Corrections: (The following items were deleted from the chart) 11:12 09:39 Constitutional: This is a well developed, well nourished patient who is [facility] awake, alert, and in no acute distress. Head/Face: atraumatic. Eyes: EOMI, no conjunctival erythema appreciated ENT: Moist Mucus Membranes Neck: Trachea midline, Supple Chest/axilla: Normal chest wall appearance and motion. Cardiovascular: Regular rate and rhythm. No edema appreciated Respiratory: Normal respirations, no respiratory distress appreciated Abdomen/GI: Non distended, soft Back: Normal ROM Skin: General appearance color normal MS/ Extremity: Moves all extremities, no obvious deformities appreciated, no edema noted to the lower extremities Neuro: Awake and alert, normal gait Psych: Behavior is normal, Mood is normal, Patient is cooperative and pleasant [facility] 11:14 10:56 ED course: I discussed the patient with Dr. Morton whom recommended [facility] TPA. [facility] 13:33 12:09 Hospitalization Ordered by Justice Delgado MD for Inpatient Admission. Preliminary diagnosis is Cerebral infarction. Bed requested for Intensive Care Unit. Status is Inpatient Admission. Condition is Stable. Problem is new. Symptoms are unchanged. [facility] 13:35 13:33 01/10/2020 12:09 Hospitalization Ordered by Justice Delgado MD for dw Inpatient Admission. Preliminary diagnosis is Cerebral infarction. Bed requested for Intensive Care Unit. Status is Inpatient Admission. Condition is Stable. Problem is new. Symptoms are unchanged. 13:36 13:35 01/10/2020 12:09 Hospitalization Ordered by Justice Delgado MD for dw Inpatient Admission. Preliminary diagnosis is Cerebral infarction. Bed requested for [facility] ER HOLD. Status is Inpatient Admission. Condition is Stable. Problem is new. Symptoms are unchanged. 13:53 10:43 Brain Wo Cont+MRI.RAD.BRZ ordered. [facility] EDHI 13:54 12:09 MRA Neck Without Cont ordered. [facility] 14:56 12:[address] [facility] 14:56 12:[address] [facility] 14:56 12:09 GATO IFA Screen w/Reflex ordered. [facility] 17:07 13:36 01/10/2020 12:09 Hospitalization Ordered by Justice Delgado MD for Inpatient Admission. Preliminary diagnosis is Cerebral infarction. Bed requested for [facility] ER HOLD. Status is Inpatient Admission. Condition is Stable. Problem is new. Symptoms are unchanged.
--- NOTE | 2020-01-10 12:17 | P.HP ---
Certification for Inpatient Patient admitted to: Inpatient With expected LOS: >2 Midnights Practitioner: I am a practitioner with admitting privileges, knowledge of patient current condition, hospital course, and medical plan of care. Services: Services provided to patient in accordance with Admission requirements found in Title 42 Section 412.3 of the Code of Federal Regulations Patient History Date of Service: 01/10/20 Reason for admission: Weakness on the right side of the body History of Present Illness: 39 yrs old female with past medical history of seizure disorder, rheumatoid arthritis, lupus, hypothyroidism, hypotension, bradycardia, RLS came to ER with ER complaints of Headache, Blurred Vision. Associated with weakness on the right side of the body, patient stated that the pain started yesterday with paraesthesia of the right side of the body Initially associated with photophobia and blurring vision. Used to get migraines before but this was worse than her normal migraines. Patient was assessed in the ER and found to have right-sided weakness and was started on TPA after consulting neurology Dr. Morton. At the time of interview patient has CT showing no acute changes but has right hemiparesis and was admitted for further stroke workup Allergies No Known Allergies Allergy (Unverified 01/10/20 14:53) Home medications list reviewed: Yes Home Medications: Gabapentin 100 mg PO QID 05/27/19 Levetiracetam [Keppra] 1,500 mg PO BID 05/27/19 Levothyroxine [Synthroid*] 175 mcg PO DAILY 05/27/19 Rosuvastatin Calcium [Crestor] 10 mg PO DAILY 05/27/19 Trazodone [Desyrel*] 50 mg PO BEDTIME 05/27/19 Varenicline Tartrate [Chantix] 1 mg PO DAILY 05/27/19 Lacosamide [Vimpat*] 50 mg PO BID 05/28/19 Sumatriptan [Imitrex*] 50 mg PO PRN #8 tab 05/28/19 - Past Medical/Surgical History Diabetic: No Past Medical History: Reviewed- Non-Contributory -: Seizures -: hypothyroidism -: hypotension -: lupus -: Rheumatoid arthritis -: Restless leg syndrome -: Bradycardia Past Surgical History: Reviewed- Non-Contributory -: Appendectomy -: hysterectomy -: - Family History Family History: Reviewed- Non-Contributory - Social History Smoking Status: Never smoker Alcohol use: No CD- Drugs: No Caffeine use: No Review of Systems 10-point ROS is otherwise unremarkable Physical Examination - Vital Signs Temperature: 98.2 F Blood Pressure: 106/68 Pulse: 58 Respirations: 18 - Physical Exam General: Alert, Mild distress HEENT: Atraumatic, Normocephalic Neck: Supple Respiratory: Clear to auscultation bilaterally, Normal air movement Cardiovascular: Regular rate/rhythm, Normal S1 S2 Capillary refill: <2 Seconds Gastrointestinal: Soft and benign, W/out hepatosplenomegaly Musculoskeletal: No clubbing, No swelling Integumentary: No rashes Neurological: Normal speech, Other (Right hemiparesis) Lymphatics: No axilla or inguinal lymphadenopathy - Studies Laboratory Data (last 24 hrs) 01/10/20 10:06: Sodium 140, Potassium 4.1, BUN 6 L, Creatinine 0.74, Glucose 86, Total Bilirubin 0.3, AST 15, ALT 16, Alkaline Phosphatase 69 01/10/20 10:06: WBC 8.1, Hgb 12.8, Hct 36.8, Plt Count 179 Assessment and Plan - Problems (Diagnosis) (1) Acute CVA (cerebrovascular accident) Current Visit: Yes Status: Acute (2) Hypotension Current Visit: No Status: Acute (3) Migraine headache with aura Current Visit: No Status: Acute (4) Rheumatoid arthritis Current Visit: No Status: Acute (5) SLE (systemic lupus erythematosus) Current Visit: No Status: Acute - Plan Acute CVA Right-sided hemiparesis Intractable headache History off migraine Seizure disorder Lupus Rheumatoid arthritis Plan Monitor under telemetry in ICU Status post TPA Monitor neuro vital signs neurology consult Continue home medications and titrate as needed Stroke workup with MRI , MRA Will get an echocardiogram Will start on aspirin tomorrow Start on statin PT OT ST evaluation GI/DVT prophylaxis Advanced directives full code - Advance Directives Does patient have a Living Will: No Does patient have a Durable POA for Healthcare: No Time Spent Managing Pts Care (In Minutes): 45
[2020-01-10] MEDS ORDERED: LORazepam 2 MG/ML VIAL ONE (12:50)
--- NOTE | 2020-01-10 13:47 | RAD REPORT ---
EXAM DESCRIPTION: MRI - MRA Head Wo Cont - 01/10/2020 1:39 pm CLINICAL HISTORY: Headache, drowsiness, CVA symptomology CVA COMPARISON: Head Brain Wo Cont dated 01/10/2020 FINDINGS: 3D noncontrast [id number] MR angiography of the [place] was performed. No aneurysm, flow-limiting stenosis or vascular malformation is seen. Forward flow seen in codominant vertebral arteries. The visualized dural venous sinuses appear patent. IMPRESSION: No significant flow abnormality of the [place] is identified.
--- NOTE | 2020-01-10 14:05 | RAD REPORT ---
EXAM DESCRIPTION: MRI - Brain W/Wo Cont - 01/10/2020 1:54 pm CLINICAL HISTORY: headache, paresthesias COMPARISON: MRA Head Wo Cont dated 01/10/2020 TECHNIQUE: Multi-sequence, multiplanar MR imaging of the brain was performed with contrast. FINDINGS: No intracranial hemorrhage, hydrocephalus, or extra-axial fluid collection.Minimal subcort ical T2/FLAIR hyperintensity subcortical white matter. No edema or shift of midline structures. No in tracranial mass. DWI is negative for acute CVA. The midline structures are normally formed. Mastoid air cells and paranasal sinuses are clear. Post-contrast images show no abnormal enhancement to suggest tumor or infection. IMPRESSION: Negative for acute CVA or other acute intracranial abnormality.
--- NOTE | 2020-01-10 14:08 | RAD REPORT ---
EXAM DESCRIPTION: MRI - MRA Neck W/Wo Cont - 01/10/2020 1:54 pm CLINICAL HISTORY: CVA Headache, drowsiness CVA symptoms COMPARISON: Brain Wo Cont dated 05/28/2019 FINDINGS: Contrast enhance 2D [id number] MR angiography of the neck vessels was performed. A left aortic arch is present with normal branching pattern the great vessels. Both subclavian arteri es and common carotid arteries are patent. There is mild narrowing of both carotid bulbs estimated at 50% or less by NASCET criteria. No severe stenosis suspected. Antegrade flow seen in both vertebral arteries. IMPRESSION: Mild narrowing of both proximal internal carotid artery is are seen estimated less than 50% based on NASCET criteria.
[2020-01-10] MEDS ORDERED: ONDANSETRON 4 MG/2 ML VIAL IV PRN (14:54)
[2020-01-10] MEDS: NA CHLORIDE 0.9% 1,000 ML IV SCH (14:54)
[2020-01-10] MEDS ORDERED: NA CHLORIDE 0.9% 1,000 ML ONE (15:16)
[2020-01-10] MEDS ORDERED: ACETAMINOPHEN 500 MG TAB ONE (15:16)
[2020-01-10 15:25] LABS: Urine Blood NEGATIVE (NEG); Urine Glucose NEGATIVE (NEG); Urine Protein NEGATIVE (NEG)
[2020-01-10 16:08] VITALS: BMI 27.2
[2020-01-10 16:11] LABS: Thyroid Stimulating Hormone 1.62 uIU/mL (0.360-3.740)
[2020-01-11] MEDS ORDERED: NA CHLORIDE 0.9% 1,000 ML ONE (06:01)
[2020-01-11] MEDS: NA CHLORIDE 0.9% 1,000 ML IV SCH (06:17)
--- NOTE | 2020-01-11 09:15 | P.PN ---
Subjective Date of Service: 01/11/20 Chief Complaint: Weakness on the right side of the body Subjective: No new changes, Other (Still having weakness on the right side of the body Headache is better) Review of Systems 10-point ROS is otherwise unremarkable Physical Examination - Vital Signs Temperature: 98.0 F Blood Pressure: 107/80 Pulse: 59 Respirations: 11 Pulse Ox (%): 98 - Physical Exam General: Alert, In no apparent distress, Oriented x3 HEENT: Atraumatic, Normocephalic Neck: Supple Respiratory: Clear to auscultation bilaterally Cardiovascular: Normal pulses, Regular rate/rhythm, Normal S1 S2 Capillary refill: <2 Seconds Gastrointestinal: Soft and benign, W/out hepatosplenomegaly Musculoskeletal: No clubbing, No swelling Integumentary: No rashes, No breakdown Neurological: Normal speech, Other (Right hemiparesis, grade 4/5 motor weakness on right upper extremity and right lower extremity,) Lymphatics: No axilla or inguinal lymphadenopathy - Studies Laboratory Data (last 24 hrs) 01/10/20 12:08: Triglycerides Cancelled, Cholesterol Cancelled, HDL Cholesterol Cancelled, Cholesterol/HDL Ratio Cancelled 01/10/20 10:06: Sodium 140, Potassium 4.1, BUN 6 L, Creatinine 0.74, Glucose 86, Total Bilirubin 0.3, AST 15, ALT 16, Alkaline Phosphatase 69 01/10/20 10:06: WBC 8.1, Hgb 12.8, Hct 36.8, Plt Count 179 Assessment & Plan - Problems (Diagnosis) (1) Acute CVA (cerebrovascular accident) Current Visit: Yes Status: Acute (2) Hypotension Current Visit: No Status: Acute (3) Migraine headache with aura Current Visit: No Status: Acute (4) Rheumatoid arthritis Current Visit: No Status: Acute (5) SLE (systemic lupus erythematosus) Current Visit: No Status: Acute Plan: Acute CVA Right-sided hemiparesis Intractable headache History off migraine Seizure disorder Lupus Rheumatoid arthritis Plan Monitor under telemetry in ICU Status post TPA Monitor closely in ICU for 24 hr post t-PA Monitor neuro vital signs Awaiting neurology consult Continue home medications and titrate as needed Stroke workup with MRI , MRA has been negative so far Will get an echocardiogram Start on aspirin and statin PT OT ST evaluation GI/DVT prophylaxis Discussed with patient in detail regarding the nature of the disease and treatment options Disposition : May need a rehab referral Time Spent Managing Pts Care (In Minutes): 42
--- NOTE | 2020-01-11 11:24 | ECHO ---
HEIGHT: 5 ft 10 in WEIGHT: 189 lb 15.91 oz DATE OF STUDY: 01/11/[address]: Tony Delgado DO 2-DIMENSIONAL: YES M.MODE: YES DOPPLER: YES COLOR FLOW: YES TDS: NO PORTABLE: NO DEFINITY: NO BUBBLE STUDY: NO DIAGNOSIS: CEREBRAL VASCULAR ACCIDENT CARDIAC HISTORY: CATHERIZATION: NO SURGERY: NO PROSTHETIC VALVE: NO PACEMAKER: NO MEASUREMENTS (cm) DIASTOLIC (NORMALS) SYSTOLIC (NORMALS) IVSd 1.0 (0.6-1.2) LA Diam 3.9 (1.9-4.0) LVEF 62% LVIDd 4.6 (3.5-5.7) LVIDs 3.0 (2.0-3.5) %FS 34% LVPWd 1.1 (0.6-1.2) Ao Diam 2.5 (2.0-3.7) 2 DIMENSIONAL ASSESSMENT: RIGHT ATRIUM: NORMAL LEFT ATRIUM: NORMAL RIGHT VENTRICLE: NORMAL LEFT VENTRICLE: NORMAL TRICUSPID VALVE: NORMAL MITRAL VALVE: NORMAL PULMONIC VALVE: NORMAL AORTIC VALVE: NORMAL PERICARDIAL EFFUSION: NONE AORTIC ROOT: NORMAL LEFT VENTRICULAR WALL MOTION: NORMAL. DOPPLER/COLOR FLOW: NORMAL. COMMENTS: NORMAL 2D ECHO WITH DOPPLER. NO WALL MOTION ABNORMALITY. NO EFFUSION. NO VEGETATION OR THROMBUS. TECHNOLOGIST: JOHNATHAN INMAN
--- NOTE | 2020-01-11 14:26 | RAD REPORT ---
EXAM DESCRIPTION: CT - Head Brain Wo Cont - 01/11/2020 1:28 pm CLINICAL HISTORY: CVA COMPARISON: January 10, 2020 TECHNIQUE: Computed axial tomography of the head was obtained. IV contrast was not requested. All CT scans are performed using dose optimization technique as appropriate and may include automated exposure control or mA/KV adjustment according to patient size. FINDINGS: An intracranial bleed is not seen . The ventricles are normal in caliber. No extra-axial fluid collection is noted. Fluid within the sinuses/ mastoids is not seen. IMPRESSION: No acute intracranial abnormality is seen.
[2020-01-11] MEDS: ACETAMINOPHEN 500 MG TAB PO PRN ×2 (15:32→20:31)
[2020-01-11] MEDS ORDERED: RANITIDINE HCL PO PRN (15:46)
[2020-01-11] MEDS: GABAPENTIN 100 MG CAP PO SCH (20:20)
[2020-01-11] MEDS: MIDODRINE HCL 5 MG TABLET PO SCH (20:21)
[2020-01-11] MEDS: levETIRAcetam 500 MG TAB PO SCH (20:21)
[2020-01-11] MEDS: LACOSAMIDE 50 MG TABLET PO SCH (20:22)
[2020-01-11] MEDS: ROSUVASTATIN 10 MG TAB PO SCH (20:28)
[2020-01-11] MEDS ORDERED: HOME MED 1 EA UNK (Midodrine Hcl [Midodrine Hcl] 2.5 MG) PO SCH (21:00)
[2020-01-11] MEDS ORDERED: HOME MED [LUBIPROSTONE 24 MCG CAP] PO SCH (21:00)
[2020-01-11] MEDS ORDERED: TRAZODONE 150 MG TAB PO SCH (21:00)
[2020-01-12] MEDS: NA CHLORIDE 0.9% 1,000 ML IV SCH (01:38)
[2020-01-12 04:44] LABS: BUN Blood Urea Nitrogen 13 mg/dL (7-18); Bicarbonate 26 mmol/L (21-32); Glucose Level 93 mg/dL (74-106); Magnesium 2.3 mg/dL (1.8-2.4); Phosphorus 3.1 mg/dL (2.5-4.9); Potassium 3.7 mmol/L (3.5-5.1); Sodium Level 142 mmol/L (136-145)
[2020-01-12] MEDS ORDERED: POTASSIUM CL SA 10 MEQ TAB PO ONE (05:00)
[2020-01-12] MEDS ORDERED: LEVOTHYROXINE SOD 0.075 MG TAB PO SCH (06:30)
[2020-01-12] MEDS ORDERED: LEVOTHYROXINE SOD 0.1 MG TAB PO SCH (06:30)
[2020-01-12] MEDS ORDERED: LEVOTHYROXINE SODIUM PO SCH (09:00)
[2020-01-12] MEDS: levETIRAcetam 500 MG TAB PO SCH (09:52)
[2020-01-12] MEDS: GABAPENTIN 100 MG CAP PO SCH (09:52)
[2020-01-12] MEDS: LACOSAMIDE 50 MG TABLET PO SCH (09:52)
[2020-01-12] MEDS: ROSUVASTATIN 10 MG TAB PO SCH (09:53)
[2020-01-12] MEDS: MIDODRINE HCL 5 MG TABLET PO SCH ×2 (09:53→14:29)
[2020-01-12 11:33] VITALS: O2SAT 92
--- NOTE | 2020-01-12 11:48 | P.PN ---
Subjective Date of Service: 01/12/20 Chief Complaint: Weakness on the right side of the body Subjective: No new changes Review of Systems 10-point ROS is otherwise unremarkable Physical Examination - Vital Signs Temperature: 96.8 F Blood Pressure: 100/60 Pulse: 57 Respirations: 16 Pulse Ox (%): 96 - Physical Exam General: Alert, In no apparent distress HEENT: Atraumatic, Normocephalic Neck: Supple, 2+ carotid pulse no bruit Respiratory: Clear to auscultation bilaterally, Normal air movement Cardiovascular: Regular rate/rhythm, Normal S1 S2 Capillary refill: <2 Seconds Gastrointestinal: Soft and benign, W/out hepatosplenomegaly Musculoskeletal: No clubbing, No swelling Integumentary: No rashes Neurological: Other (Right hemiparesis , mild improvement in weakness ) Lymphatics: No axilla or inguinal lymphadenopathy Assessment & Plan - Problems (Diagnosis) (1) Acute CVA (cerebrovascular accident) Current Visit: Yes Status: Acute (2) Hypotension Current Visit: No Status: Acute (3) Migraine headache with aura Current Visit: No Status: Acute (4) Rheumatoid arthritis Current Visit: No Status: Acute (5) SLE (systemic lupus erythematosus) Current Visit: No Status: Acute Plan: Acute CVA Right-sided hemiparesis Intractable headache History of migraine Seizure disorder Lupus Rheumatoid arthritis Plan Monitor under telemetry Status post TPA For repeat CT was negative Monitor neuro vital signs Continue home medications and titrate as needed Stroke workup with MRI , MRA has been negative so far on aspirin and statin Awaiting further recommendations from neurology PT OT ST evaluation GI/DVT prophylaxis Discussed with patient in detail regarding the nature of the disease and treatment options Disposition : Discussed in detail with the patient regarding the placement to rehab Patient wanted go home with home health and home PT Discuss with case management Awaiting further recommendations from neurology Time Spent Managing Pts Care (In Minutes): 42
[2020-01-12 12:06] VITALS: BP 99/60; TEMP 98.5
--- NOTE | 2020-01-12 13:57 | P.DS ---
Admission Date: 01/10/20 Discharge Date: 01/12/20 Disposition: DC HOME/HOME HEALTH CARE Discharge Condition: FAIR Reason for Admission: Weakness on the right side of the body - Problems (1) Acute CVA (cerebrovascular accident) Current Visit: Yes Status: Acute (2) Hypotension Current Visit: No Status: Acute (3) Migraine headache with aura Current Visit: No Status: Acute (4) Rheumatoid arthritis Current Visit: No Status: Acute (5) SLE (systemic lupus erythematosus) Current Visit: No Status: Acute Brief History of Present Illness: 39 yrs old female with past medical history of seizure disorder, rheumatoid arthritis, lupus, hypothyroidism, hypotension, bradycardia, RLS came to ER with ER complaints of Headache, Blurred Vision. Associated with weakness on the right side of the body, patient stated that the pain started yesterday with paraesthesia of the right side of the body Initially associated with photophobia and blurring vision. Used to get migraines before but this was worse than her normal migraines. Patient was assessed in the ER and found to have right-sided weakness and was started on TPA after consulting neurology Dr. Morton. At the time of interview patient has CT showing no acute changes but has right hemiparesis and was admitted for further stroke workup Hospital Course: Acute CVA Right-sided hemiparesis Intractable headache History of migraine Seizure disorder Lupus Rheumatoid arthritis Course Patient was admitted and was monitored closely under telemetry patient received t-PA in the ER. CT scan was negative Patient underwent stroke workup including MRI and MRA along with echocardiogram Also underwent a repeat CT status post t-PA monitored neuro vital signs Continued home medications and titrate as needed PT OT ST evaluation was done Discussed with patient in detail regarding the nature of the disease and treatment options Discussed in detail with the patient regarding the placement to rehab She wanted go home with home health and home PT Discuss with case management Neurology was consulted and recommended conservative management with outpatient follow up patient is being discharged home today in a stable condition with advice to follow up with PCP in 1 week and also with Neurology in 1-2 weeks Vital Signs/Physical Exam: Temp Pulse Resp BP Pulse Ox 98.5 F 59 16 99/60 95 01/12/20 12:00 01/12/20 12:00 01/12/20 12:00 01/12/20 12:00 01/12/20 12:00 General: Alert, In no apparent distress HEENT: Atraumatic, Normocephalic Neck: Supple Respiratory: Clear to auscultation bilaterally, Normal air movement Cardiovascular: Regular rate/rhythm, Normal S1 S2 Capillary refill: <2 Seconds Gastrointestinal: Soft and benign, W/out hepatosplenomegaly Musculoskeletal: No clubbing, No swelling Integumentary: No rashes, No breakdown Neurological: Other (Right Hemiparesis) Laboratory Data at Discharge: WBC 8.1 K/uL (4.3-10.9) 01/10/20 10:06 Hgb 12.8 g/dL (12.0-15.0) 01/10/20 10:06 Hct 36.8 % (36.0-45.0) 01/10/20 10:06 Plt Count 179 K/uL (152-406) 01/10/20 10:06 Sodium 142 mmol/L (136-145) 01/12/20 04:07 Potassium 3.7 mmol/L (3.5-5.1) 01/12/20 04:07 BUN 13 mg/dL (7-18) 01/12/20 04:07 Creatinine 0.66 mg/dL (0.55-1.3) 01/12/20 04:07 Glucose 93 mg/dL (74-106) 01/12/20 04:07 Phosphorus 3.1 mg/dL (2.5-4.9) 01/12/20 04:07 Magnesium 2.3 mg/dL (1.8-2.4) 01/12/20 04:07 Total Bilirubin 0.3 mg/dL (0.2-1.0) 01/10/20 10:06 AST 15 U/L (15-37) 01/10/20 10:06 ALT 16 U/L (12-78) 01/10/20 10:06 Alkaline Phosphatase 69 U/L (45-117) 01/10/20 10:06 Triglycerides 110 mg/dL (<150) 01/12/20 04:07 Cholesterol 100 mg/dL (<200) 01/12/20 04:07 HDL Cholesterol 34 mg/dL (40-60) L 01/12/20 04:07 Cholesterol/HDL Ratio 2.94 01/12/20 04:07 Home Medications: Gabapentin 2 tab PO BID 01/10/20 Levothyroxine Sodium [Synthroid] 1 tab PO DAILY 01/10/20 Lubiprostone [Amitiza*] 1 tab PO BID 01/10/20 Midodrine HCl 2.5 mg PO TID 01/10/20 Ranitidine HCl [Zantac 75] 1 tab PO PRN PRN 01/10/20 Rosuvastatin Calcium [Crestor] 1 tab PO DAILY 01/10/20 levETIRAcetam [Keppra*] 1,500 mg PO BID 01/10/20 Lacosamide [Vimpat] 50 mg PO BID 01/11/20 Trazodone [Desyrel*] 150 mg PO BEDTIME 01/11/20 Aspirin [Aspirin EC 81 MG] 81 mg PO DAILY #30 tablet. 01/12/20 New Medications: Aspirin [Aspirin EC 81 MG] 81 mg PO DAILY #30 tablet. Diet: [facility] Followup: Myron Morton MD [ASSOCIATE-ACTIVE - CAN ADMIT] - 1-2 Weeks (neurologist- call to schedule an appointment ) Jasmine Lima MD [Primary Care Provider] - 1 Week (PCP- call to schedule an appointment ) Time spent managing pt's care (in minutes): 34
--- NOTE | 2020-01-12 15:02 | CON ---
Reason For Consultation: Consultation called because of possible stroke. History Of Present Illness: Ms. Boyle is a 39-year-old patient, who was seen in clinic for a chronic right frontal stroke with left lower and upper extremity weakness for which she has recovered comple tely, migraine with aura, and complex partial seizures. She said that she was doing well, when on Benavides nday she suddenly felt disoriented, confused, and had a severe headache. She could not remember much of what was going on, but then saw her and he said she "did not look right." She reported b lurred vision and had some tingling and then weakness in her right face, arm, and leg. Her symptoms could not be precisely mapped at the time of onset and she came to [facility] on the , w hich is days after onset of her episode. Her head CT scan in the emergency room on was done at 9:57 a.m., it showed no acute ischemic or hemorrhagic change. In the emergency room, an NIH Stroke S cruz was found to be 11 and it should be noted that during her evaluation in the emergency room she h ad actually initially come into the hospital with just tingling, but while in the hospital, she devel oped severe weakness in the right arm and leg and they thought that was a new event and as a result w ith a negative head CT scan, she was felt to be a good candidate for tPA and actually did receive tPA and was followed for 24 hours in the emergency room with close monitoring and a repeat head CT scan was negative. She did have a subsequent brain MRI, stroke protocol to rule out the presence of acute ischemic or hemorrhagic stroke. The MRA of her head and neck showed no aneurysm, no hemorrhage. In terms of her deficit, she denied any significant improvement in her right-sided weakness which mostl y involved the leg more than arm, but both extremities were involved. There was also numbness in the right arm and leg. Her speech and swallowing were not involved. She did not receive aspirin or Reggie vix for 24 hours after her tPA was then given, antiepileptic medications Vimpat and Keppra along with DVT prophylaxis. Past Medical History: Includes possible lupus, chronic stroke in the right brain with left-sided wea kness, migraine with aura, rheumatoid arthritis. Allergies: NO KNOWN DRUG ALLERGIES. Medications: At home; gabapentin 100 mg 4 times a day, Keppra 1500 mg twice daily, Synthroid 175 mcg daily, Crestor 10 mg daily, trazodone 50 mg at bedtime, Chantix 1 mg daily, Vimpat 50 mg twice daily , Imitrex 50 mg as needed. Family History: Noncontributory. Past Surgical History: Appendectomy, cholecystectomy, . Social History: No alcohol, tobacco, or IV drug use. Review of Systems: She denies any prior weakness or numbness. Did admit to about 2 seizures per week. Otherwise no kiya lgias, arthralgias. No rash and no weight change. Physical Examination: Vital Signs: Blood pressure ranged from 90/58 to 100/60, pulse , temperature 98.2 to 98.5, oxygen saturation 96% on room air. General: Ms. Boyle is resting in bed. She is in no acute distress. HEENT: She is normocephalic, atraumatic. Sclerae anicteric. Oropharynx is moist and pink. Neck: Supple. Chest: Clear. Heart: Regular. Extremities: Show no edema or cyanosis. Neurological: She is alert and oriented to situation, place, and person. She has no expressive or r eceptive aphasias. Cranial nerves 2 through 12; she does report decreased sensation to light touch, temperature in the right V1, V2, V3 compared to the left V1, V2, V3; however, her face is symmetric. She has missing most of her teeth. In terms of her motor examination, she has normal bulk and tone in the arms and legs; however, she reports no movement in the right upper extremity and denied being able to lift her arm up while lying almost flat. However, when her right arm was lifted and held in place briefly while she was instructed to move her wrist up and down, she was able to keep her right arm up in the air for more than a count of 10 without any drift. She did have some wrist flexion and extension and finger flexion and extension at least 3/5 despite reporting 0/5 movement. The left si de has full strength in the upper extremity and lower extremity. She denied being able to lift the l eg off the bed, but once lifted up. This leg did remain up for a few seconds, but then dropped. She did not have weakness in the left lower extremity. Sensation; she reports decreased to light touch temperature in the right arm and leg compared to the left arm and leg, and her coordination is unable to be assessed in the right because of this reported weakness, although when the arm was held up, sm ooth movements noted in the fingers and the wrist. Reflexes were depressed in the patella with 0 at the patellae in the upper extremities. She had 1+ at the biceps, triceps, and brachioradialis bilate rally. She will be ambulated with the physical therapist. Laboratory Studies: Complete blood count with differential is normal. Coagulation panel shows INR _ was normal. Chemistries essentially unremarkable with chloride slightly elevated at 110, c alcium low at 8.0. Her LDL cholesterol is 44, HDL cholesterol 34. Her cholesterol HDL ratio is 2.94 . Magnesium 2.3, TSH 1.62. Liver function studies unremarkable. Urinalysis showed trace esterase, trace blood. Her echocardiogram showed ejection fraction 60%. It is a normal study. No vegetations noted. Her MRA of her head or neck is essentially unremarkable and MRI of the brain again no acute ischemic or hemorrhagic stroke, although the recent MRI did not mention the chronic right frontal lac unar stroke. Assessment: Ms. Boyle is a 39-year-old patient with history of complex partial seizures, migraine wi th aura and chronic stroke, who comes in with a questionable reported possible stroke for which she h as a variable examination of the right upper and lower extremity suggestive of a possible secondary g ain as the strength is more than she reports when examined with distraction. She was told because of the absence of finding any acute ischemic or hemorrhagic change in brain, that her deficits should l ikely resolve. However, the possible differential diagnosis may still include seizure with Kanu's pa ralysis and complicated migraine. Plan: She may be put on aspirin 81 mg daily, Plavix 75 mg daily, folic acid 1 mg daily. We will con tinue Crestor 10 mg daily. Continue with Keppra 1500 mg twice daily, continue with Vimpat 50 mg twic e daily, continue with blood pressure support with midodrine for which 2.5 mg 3 times rick y. Also, Synthroid for hypothyroidism and Synthroid 0.075 mg daily. She may be discharged home and have home health for physical therapy and follow up with Dr. Morton in clinic in 1 month. Please note, she should also continue gabapentin 200 mg twice daily. DEYSI/LIDYA Voice ID: [id number] Report ID: [id number]
== END 2020-01-12 15:53 | disposition home health service (06) | DRG 62 ==
LOC: ER 09:09 → ERHOLD 14:54 → 2ND 01-11 15:25
PROVIDERS: ADMIT Family Medicine; ATTEND Family Medicine
DX: I63.9 Cerebral infarction, unspecified (principal); G81.91 Hemiplegia, unspecified affecting right dominant side; E03.9 Hypothyroidism, unspecified; I95.9 Hypotension, unspecified; G43.109 Migraine with aura, not intractable, without status migrainosus; M06.9 Rheumatoid arthritis, unspecified; M32.9 Systemic lupus erythematosus, unspecified; H53.8 Other visual disturbances; R29.711 NIHSS score 11; Z79.890 Hormone replacement therapy; Z79.899 Other long term (current) drug therapy; Z90.49 Acquired absence of other specified parts of digestive tract; Z90.710 Acquired absence of both cervix and uterus; Z11.59 Encounter for screening for other viral diseases
CPT/HCPCS: 36415; 51702; 70450; 70544; 70549; 70553; 80048; 80053; 80061; 81003; 82947; 83036; 83735; 84100; 84439; 84443; 84484; 85025; 92610; 92977; 93005; 93306; 96361; 96374; 96375; 97116; 97161; 97530; 99291; A9577; J1100; J1200; J2405; J2765; J2997; J7030; J7040; U0002

== ENCOUNTER 2020-05-30 05:49 | Emergency (ER) | payer BC ==
[2020-05-30] MEDS ORDERED: DIPHENHYDRAMINE 50 MG/ML VIAL ONE (06:29)
[2020-05-30] MEDS ORDERED: METHYLPREDNISOLONE 125 MG INJ ONE (06:35)
--- NOTE | 2020-05-30 06:48 | EDPHYS ---
Physician Documentation [facility] Name: Naz Boyle Age: 40 yrs Sex: Female : 1980 Arrival Date: 05/30/2020 Time: 05:50 Bed 14 Private MD: ED Physician Dimitri Hawkins HPI: 05/30 06:07 This 40 yrs old Female presents to ER via Wheelchair with complaints of Rash. rn 06:07 The patient's rash thought to be caused by an unknown cause. The rash is located on the rn body diffusely. The rash can be described as erythematous, macular, papular, urticarial. 06:07 Onset: The symptoms/episode began/occurred yesterday. Associated signs and symptoms: rn Pertinent positives: itching, Pertinent negatives: difficulty breathing, fever, swelling of lips, swelling of throat, swelling of tongue, wheezing. Severity of symptoms: At their worst the symptoms were moderate in the emergency department the symptoms are unchanged. The patient has not experienced similar symptoms in the past. The patient has not recently seen a physician. Reports diffuse itchy rash to body, began on arms and chest, spread now to back/neck, no difficulty swallowing or swelling, no nausea/vomiting. No fever. . 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 LMP N/A - Hysterectomy ll2 Historical: - Allergies: 05:55 No Known Allergies; sg - Home Meds: 06:10 Amitiza Oral [Active]; Crestor Oral [Active]; gabapentin Oral [Active]; levothyroxine ll2 oral [Active]; Keppra Oral [Active]; Zantac Oral [Active]; midodrine Oral [Active]; prednisone 10 mg oral tab 2 tabs [Active]; Plaquenil Oral [Active]; - PMHx: 05:55 BRADYCARDIA; hypotension; Hypothyroidism; Lupus; Rheumatoid Arthritis; RLS; Seizures; sg - PSHx: 05:55 Appendectomy; ; Hysterectomy; cyst removal; Carpal Tunnel Repair; sg Cholecystectomy; - Immunization history:: Adult Immunizations up to date. - Social history:: Smoking status: Patient denies any tobacco usage or history of. - Family history:: not pertinent. - Hospitalizations: : No recent hospitalization is reported. ROS: 06:07 Constitutional: Negative for fever, chills, and weight loss, Eyes: Negative for injury, rn pain, redness, and discharge, ENT: Negative for injury, pain, and discharge, Cardiovascular: Negative for chest pain, palpitations, and edema, Respiratory: Negative for shortness of breath, cough, wheezing, and pleuritic chest pain, Abdomen/GI: Negative for abdominal pain, nausea, vomiting, diarrhea, and constipation, Back: Negative for injury and pain, : Negative for injury, bleeding, discharge, and swelling, MS/Extremity: Negative for injury and deformity, Skin: + itchy rash to torso and extremities Neuro: Negative for headache, weakness, numbness, tingling, and seizure. Exam: 06:07 Constitutional: This is a well developed, well nourished patient who is awake, alert, rn and in no acute distress. Head/Face: Normocephalic, atraumatic. ENT: No oral swelling or intraoral lesions, no stridor, MMM, uvula midline and not swollen Cardiovascular: Regular rate and rhythm. No pulse deficits. Respiratory: No increased work of breathing, no retractions or nasal flaring. Skin: Warm, dry, + erythematous maculopapular rash to torso and extremities, anterior and posterior neck, no fluctuance, no drainage, no target lesions. MS/ Extremity: Pulses equal, no cyanosis. Neurovascular intact. Full, normal range of motion. Equal circumference. Neuro: Awake and alert, GCS 15, oriented to person, place, time, and situation. Vital Signs: 06:02 BP 118 / 81; Pulse 90; Resp 20; Temp 98.3; Pulse Ox 100% on R/A; ll2 MDM: 05:51 Patient medically screened. rn 06:14 Differential diagnosis: allergic reaction, drug reaction, allergic reaction, rn nonspecific rash. Data reviewed: vital signs, nurses notes, and as a result, I will discharge patient. Counseling: I had a detailed discussion with the patient and/or guardian regarding: the historical points, exam findings, and any diagnostic results supporting the discharge/admit diagnosis, the need for outpatient follow up, to return to the emergency department if symptoms worsen or persist or if there are any questions or concerns that arise at home. 06:46 Response to treatment: the patient's symptoms have mildly improved after treatment, and rn as a result, I will discharge patient. Special discussion: I discussed with the patient/guardian in detail that at this point there is no indication for admission to the hospital. It is understood, however, that if the symptoms persist or worsen the patient needs to return immediately for re-evaluation. ED course: Pt afebrile, no infectious symptoms, itchy rash that is spreading, will treat with steroids and dc home with steroids and prn benadryl. Return precautions given and understood. Pt also with Lupus and RA, which could present with rash, but all should be steroid responsive. . 05/30 06:05 Order name: IV Start; Complete Time: 06:38 rn Administered Medications: 06:38 Drug: SOLU-Medrol 125 mg Route: IVP; Site: left antecubital; ll2 06:38 Drug: Benadryl 50 mg Route: IVP; Site: left antecubital; ll2 Disposition: 05/30/20 06:48 Discharged to Home. Impression: Rash and other nonspecific skin eruption. - Condition is Stable. - Discharge Instructions: Rash. - Prescriptions for Hydroxyzine HCl 50 mg Oral Tablet - take 1 tablet by ORAL route every 8 hours As needed; 20 tablet. Prednisone 20 mg Oral Tablet - take 3 tablet by ORAL route once daily for 5 days; 15 tablet. - Medication Reconciliation Form, Thank You Letter, Antibiotic Education, Prescription Opioid Use form. - Follow up: Private Physician; When: As needed; Reason: Recheck today's complaints, Re-evaluation by your physician. - Problem is new. - Symptoms have improved. Signatures: Thierry Ann RN RN Dimitri Hawkins MD MD rn [place], Lacie, RN RN ll2 Corrections: (The following items were deleted from the chart) 06:56 06:48 05/30/2020 06:48 Discharged to Home. Impression: Rash and other nonspecific skin ll2 eruption. Condition is Stable. Forms are Medication Reconciliation Form, Thank You Letter, Antibiotic Education, Prescription Opioid Use. Follow up: Private Physician; When: As needed; Reason: Recheck today's complaints, Re-evaluation by your physician. Problem is new. Symptoms have improved. rn
--- NOTE | 2020-05-30 06:48 | ER ---
Nurse's Notes [facility] Name: Naz Boyle Age: 40 yrs Sex: Female : 1980 Arrival Date: 05/30/2020 Time: 05:50 Bed 14 Private MD: Diagnosis: Rash and other nonspecific skin eruption Presentation: 05/30 06:02 Chief complaint: Patient states: i went to bed and woke up with this rash. it started ll2 on my chest but when i woke up it was all down my arms, back and stomach and coming up my neck. it itches but it's also starting to hurt. Coronavirus screen: Client denies travel out of the [place] in the last 14 days. At this time, the client does not indicate any symptoms associated with coronavirus-19. Ebola Screen: No symptoms or risks identified at this time. Initial Sepsis Screen: Does the patient meet any 2 criteria? No. Patient's initial sepsis screen is negative. Does the patient have a suspected source of infection? No. Patient's initial sepsis screen is negative. Risk Assessment: Do you want to hurt yourself or someone else? Patient reports no desire to harm self or others. Onset of symptoms was May 29, 2020. 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: 06:07 LMP N/A - Hysterectomy ll2 Historical: - Allergies: 05:55 No Known Allergies; sg - Home Meds: 06:10 Amitiza Oral [Active]; Crestor Oral [Active]; gabapentin Oral [Active]; levothyroxine ll2 oral [Active]; Keppra Oral [Active]; Zantac Oral [Active]; midodrine Oral [Active]; prednisone 10 mg oral tab 2 tabs [Active]; Plaquenil Oral [Active]; - PMHx: 05:55 BRADYCARDIA; hypotension; Hypothyroidism; Lupus; Rheumatoid Arthritis; RLS; Seizures; sg - PSHx: 05:55 Appendectomy; ; Hysterectomy; cyst removal; Carpal Tunnel Repair; sg Cholecystectomy; - Immunization history:: Adult Immunizations up to date. - Social history:: Smoking status: Patient denies any tobacco usage or history of. - Family history:: not pertinent. - Hospitalizations: : No recent hospitalization is reported. Screenin:07 Abuse screen: Denies threats or abuse. Nutritional screening: No deficits noted. ll2 Tuberculosis screening: No symptoms or risk factors identified. Fall Risk None identified. Assessment: 06:06 General: Appears in no apparent distress. Behavior is calm, cooperative, appropriate ll2 for age. Pain: Complains of pain in widespread margaret covering top half of body. Neuro: Level of Consciousness is awake, alert, obeys commands, Oriented to person, place, time, situation. Cardiovascular: Patient's skin is warm and dry. Respiratory: Airway is patent Respiratory effort is even, unlabored, Respiratory pattern is regular, symmetrical. GI: No signs and/or symptoms were reported involving the gastrointestinal system. : No signs and/or symptoms were reported regarding the genitourinary system. EENT: No signs and/or symptoms were reported regarding the EENT system. Derm: Rash noted that is red. Musculoskeletal: Circulation, motion, and sensation intact. Range of motion: limited in right hip, right knee and right ankle. 06:54 Reassessment: Patient and/or family updated on plan of care and expected duration. Pain ll2 level reassessed. Patient is alert, oriented x 3, equal unlabored respirations, skin warm/dry/pink. Vital Signs: 06:02 BP 118 / 81; Pulse 90; Resp 20; Temp 98.3; Pulse Ox 100% on R/A; ll2 ED Course: 05:50 Patient arrived in ED. ag3 05:51 Dimitri Hawkins MD is Attending Physician. rn 06:01 Tonya Feng, LIZZY is Primary Nurse. ll2 06:04 Triage completed. ll2 06:07 Arm band placed on right wrist. ll2 06:07 Patient has correct armband on for positive identification. Call light in reach. Side ll2 rails up X 1. Adult w/ patient. Pulse ox on. NIBP on. 06:38 Inserted saline lock: 22 gauge in left antecubital area, using aseptic technique. ll2 06:54 No provider procedures requiring assistance completed. ll2 06:56 IV discontinued, intact, bleeding controlled, No redness/swelling at site. Pressure ll2 dressing applied. Administered Medications: 06:38 Drug: SOLU-Medrol 125 mg Route: IVP; Site: left antecubital; ll2 06:38 Drug: Benadryl 50 mg Route: IVP; Site: left antecubital; ll2 Outcome: 06:48 Discharge ordered by . lizzy 06:56 Discharged to home via wheelchair. ll2 06:56 Condition: stable 06:56 Discharge instructions given to patient, Instructed on discharge instructions, follow up and referral plans. medication usage, Demonstrated understanding of instructions, follow-up care, medications, Prescriptions given X 2. 06:56 Patient left the ED. ll2 Signatures: Thierry Ann RN RN Dimitri Hawkins MD MD rn Gomez, Alice 3 Tonya Feng RN RN 2
== END 2020-05-30 06:56 | disposition home or self-care (01) ==
LOC: ER 05:49
DX: R21 Rash and other nonspecific skin eruption (principal); I95.9 Hypotension, unspecified; E03.9 Hypothyroidism, unspecified; G40.909 Epilepsy, unspecified, not intractable, without status epilepticus
CPT/HCPCS: 96375; 96374; 99284; J1200; J2930

== ENCOUNTER 2020-06-02 09:55 | Emergency (ER) | payer BC ==
--- OUTSIDE RECORDS SUMMARY | 2020-06-02 09:59 | XMS REPORT | Continuity of Care Document ---
:1980 Author Organization [facility] t Address [address] [place] [address] Care Team Providers Name Role Phone Akiko Raymond Attending Clinician Problems This patient has no known problems. Allergies, Adverse Reactions, Alerts This patient has no known allergies or adverse reactions. Medications This patient has no known medications. Procedures This patient has no known procedures. Encounters Start End Encounter Admission Attending Care Care Encounter Source Date/Time Date/Time Type Type Clinicians Facility Department ID 2020-05-30 2020-05-30 Emergency [facility] [id number] 16:01:00 23:26:00 Zoe Ayala [id number] Mobile [id number] [place] [id number] Results This patient has no known results.
--- OUTSIDE RECORDS SUMMARY | 2020-06-02 09:59 | XMS REPORT | Summary of Care ---
:1980 Author Organization [facility] Address [address] [place] [id number] Care Team Providers Name Role Phone Pcp, Does Not Have A Primary Care Provider Reason for Referral MRI/CAT Scan (STAT) Status Reason Specialty Diagnoses / Referred By Referred To Procedures Contact Contact New Request Diagnostic Diagnoses SOB (shortness of breath) Zoe Navas Radiology Procedures CT CHEST PULMONARY ANGIOGRAM R, EMNP [address] [facility] [id number] [place] [id number] Radiology Services (STAT) Status Reason Specialty Diagnoses / Referred By Referred To Procedures Contact Contact New Request Diagnostic Diagnoses SOB (shortness of breath) Zoe Navas Radiology Procedures XR CHEST 1 VW R, EMNP 301 [facility] [id number] [place] [address] Reason for Visit Reason Comments Shortness of Breath Dizziness Other rash Auth/Cert Status Reason Specialty Diagnoses / Referred By Referred To Procedures Contact Contact Emergency Medicine [facility] Em ergency Dept [address] [place] [address] Fax: Encounter Details Date Type Department Care Team Description 05/30/2020 Emergency ADC-Emergency Zoe Navas R, Atypical p neumonia (Primary Dx); Department EMNP SOB (shortness of breath); [address] [place] [address] Dr easton 301 [place] [address] [id number] [place] [id number] [phone] Allergies No Known Allergiesdocumented as of this encounter (statuses as of 05/30/2020) Medications Medication Sig Dispensed Refills Start Date End Date Status HYDROcodone-acetamino Take 1 Tab by 15 Tab 0 02/28/2013 Active phen (NORCO 5) 5-325 mouth every 4 mg tablet (four) hours as needed for Pain (scale 4-6). proMETHazine Take 0.5 Tabs by 10 Tab 0 02/28/2013 Active (PHENERGAN) 25 mg mouth every 6 tablet (six) hours as needed for Nausea and Vomiting (N/V). amoxicillin-clavulana Take 1 tablet by 14 tablet 0 05/30/2020 06/06/2020 Active te 875-125 mg per mouth every 12 tabletIndications: (twelve) hours Atypical pneumonia for 7 days. albuterol 90 Inhale 2 Puffs 8.5 g 0 05/30/2020 A ctive mcg/actuation every 4 (four) inhalerIndications: hours as needed Atypical pneumonia for Wheezing or Shortness of Breath. hydrOXYzine 25 mg Take 1 tablet by 20 tablet 0 05/30/2020 Active tabletIndications: mouth every 6 Rash in adult (six) hours as needed for Itching. documented as of this encounter (statuses as of 05/30/2020) Active Problems No known active problemsdocumented as of this encounter (statuses as of 05/30/2020) Social History Tobacco Use Types Packs/Day Years Used Date Never Assessed Sex Assigned at Date Recorded Not on file COVID-19 Exposure Response Date Recorded In the last month, have you been in contact with No / Unsure 05/30/2020 3:02 PM MOBILE DESIGNER someone who was confirmed or suspected to have Coronavirus / COVID-19? documented as of this encounter Last Filed Vital Signs Vital Sign Reading Time Taken Comments Blood Pressure 105/71 05/30/2020 9:01 PM MOBILE DESIGNER Pulse 73 05/30/2020 9:01 PM MOBILE DESIGNER Temperature 36.6 C (97.8 F) 05/30/2020 9:01 PM MOBILE DESIGNER Respiratory Rate 18 05/30/2020 9:01 PM MOBILE DESIGNER Oxygen Saturation 98% 05/30/2020 9:01 PM MOBILE DESIGNER Inhaled Oxygen Concentration - - Weight 93 kg (205 lb) 05/30/2020 3:27 PM MOBILE DESIGNER Height 180.3 cm (5' 11") 05/30/2020 3:27 PM MOBILE DESIGNER Body Mass Index 28.59 05/30/2020 3:27 PM MOBILE DESIGNER documented in this encounter Discharge Instructions Zoe Rodarte EMNP - 05/30/2020NO LIFE-THREATENING FINDINGS ON TODAY'S EXAM. SPECIAL INSTRUCTIONS: 1. Continue current medicine regimen 2. Take medicines as prescribed, including taking all antibiotics 3. Follow up with Dr Garcia 4. See attached information FOLLOW-UP RECOMMENDATIONS: RECOMMEND FOLLOW-UP WITH A PRIMARY CARE PROVIDER OR SPECIALIST IN 2-5 DAYS, ESPECIALLY IF NO IMPROVEMENT IN SYMPTOMS. TO FOLLOW-UP WITHIN THE [facility], TRY THESE OPTIONS (CLINIC APPOINTMENTS AVAILABLE ON [id number]-QA-[id number] BASIS): 1. SCHEDULE AN APPOINTMENT ONLINE AT WWW[facility] 2. OR CALL THE [facility] AT OR 3. OR CALL YOUR [facility] PHYSICIAN'S OFFICE DIRECTLY IF YOU ARE ALREADY AN ESTABLISHED [facility] PATIENT. OR, YOU MAY FOLLOW-UP WITH A PROVIDER OF YOUR CHOICE, SUCH : 1. A PHYSICIAN OF YOUR CHOICE 2. [facility], . LOCATIONS IN [facility] 3. [facility], [address] [place] [address]; [phone] RETURN TO ER FOR WORSENING OF SYMPTOMS. AttachmentsThe following attachments cannot be sent through Care Everywhere. Pneumonia, What Is (Macedonian)Pneumonia, When You Have (Macedonian)Pneumonia, Treating (Macedonian)Shortness of Breath (Dyspnea) (Macedonian)Amoxicillin; Clavulanic Acid tablets (Macedonian)documented in this encounter ED Notes Jani Mon RN - 05/30/2020 3:21 PM CSTPatient started to have rash on bilateral upper extremity yesterday. This morning, rash spread to face, chest, abdomen, legs. Patient went to [facility]. Patient received benadryl, steroids from there and got discharged. Not feeling relief, patient went to PCP. PCP told the patient to come over here as patient bp and heart rate elevated, light headed and sob. No angioedema noted. Patient feeling etch on the back of throat, sob. Slight swelling face. H/O stroke, wheel chair bound, seizure, lupus, bradycardia. documented in this encounter Miscellaneous Notes ED Nurse Note - Princess Kendrick RN - 05/30/2020 10:15 PM CSTPatient provided discharge instructions, AVS, E-prescription information, Return precautions, and told to follow-up with PCP. Patient verbalized understanding of discharge instructions and ambulated out of ED in no acute distress. documented in this encounter Plan of Treatment Name Type Priority Associated Diagnoses Date/Ti me EKG-12 LEAD ROUTINE ONCE HEART STATION STAT SOB (shortness of 05/30/2020 5:10 breath) PM MOBILE DESIGNER Rash in adult LAB ONLY COVID LAB Routine SOB (shortness of 05/30/19 21 6:53 INTERPRETATION breath) PM MOBILE DESIGNER Rash in adult Name Type Priority Associated Order Schedule Diagnoses EKG-12 LEAD ROUTINE HEART STATION STAT SOB (shortness of ON CE for 1 ONCE breath) Occurrences starting Rash in adult 05/30/2020 unt il 05/30/2020 LAB ONLY COVID LAB Routine SOB (shortness of ONCE for 1 INTERPRETATION breath) Occurrences starting Rash in adult 05/30/2020 unt il 05/30/2020 Health Maintenance Due Date Last Done Comments Depression Screening 1991 DTaP,Tdap,and Td Vaccines (1 - 1998 Tdap) PAP SMEAR 2000 Breast Cancer Screening 2019 (MAMMOGRAM) INFLUENZA VACCINE (#1) 2020 PNEUMOCOCCAL 0-64 YEARS COMBINED Aged Out No longer eligible based on SERIES patient's age to complete this topic documented as of this encounter Procedures Procedure Name Priority Date/Time Associated Comments Diagnosis URINALYSIS STAT 05/30/2020 9:43 PM SOB (shortness of Res ults for this MOBILE DESIGNER breath) procedure are in Rash in adult the results section. CT CHEST PULMONARY STAT 05/30/2020 7:43 PM SOB (shortness of Results for this ANGIOGRAM MOBILE DESIGNER breath) procedure are i n the results section. POCT TEST EVANS 05/30/2020 7:29 PM SOB (shortness of Results for this MOBILE DESIGNER breath) procedure are in Rash in adult the results section. COVID-19 (ID NOW STAT 05/30/2020 6:53 PM SOB (shortness of Results for this RAPID TESTING) MOBILE DESIGNER breath) procedure are in Rash in adult the results section. XR CHEST 1 VW STAT 05/30/2020 6:09 PM SOB (shortness of Re sults for this MOBILE DESIGNER breath) procedure are i n the results section. D-DIMER STAT 05/30/2020 6:03 PM SOB (shortness of Res ults for this MOBILE DESIGNER breath) procedure are in Rash in adult the results section. CBC WITH DIFF STAT 05/30/2020 6:03 PM SOB (shortness of Re sults for this MOBILE DESIGNER breath) procedure are in Rash in adult the results section. COMP. METABOLIC STAT 05/30/2020 6:03 PM SOB (shortness of Results for this PANEL (71617) MOBILE DESIGNER breath) procedure are in Rash in adult the results section. TROPONIN I STAT 05/30/2020 6:03 PM SOB (shortness of Res ults for this MOBILE DESIGNER breath) procedure are in Rash in adult the results section. NOTICE OF PRIVACY Routine 05/30/2020 3:02 PM PRACTICES MOBILE DESIGNER documented in this encounter Results URINALYSIS (05/30/2020 9:43 PM MOBILE DESIGNER) Pathologist Sig nature APPEARANCE Clear Clear [facility] COLOR Yellow Yellow [facility] PH 7.0 4.8 - 8.0 [facility] SP GRAVITY 1.040 (H) 1.003 - 1.030 [facility] GLU U QUAL Normal Normal [facility] BLOOD Negative Negative [facility] KETONES Negative Negative [facility] PROTEIN Negative Negative [facility] UROBILIN Normal Normal [facility] BILIRUBIN Negative Negative [facility] NITRITE Negative Negative [facility] LEUK VY Negative Negative [facility] RBC/HPF 1 0 - 3 HPF [facility] WBC/HPF <1 0 - 5 HPF [facility] BACTERIA Few (A) Negative [facility] SQ EPITH <1 HPF [facility] Specimen Urine - URINE, CLEAN CATCH Performing Organization Address City/State/[facility] Phone Number [facility] CLIA: [id number] [place] [address] CHEST PULMONARY ANGIOGRAM (05/30/2020 7:43 PM MOBILE DESIGNER) Specimen Impressions Performed At Impression: PACS/VR/DOSE 1. Patchy ground glass opacities, predominating within the lower lobes. An atypical infectious process cannot be ex cluded. The appearance is not typical for COVID-19 infection, although this cannot be excluded. 2. Negative for pulmonary embolus. 3. Mildly enlarged subcarinal lymph node , nonspecific in appearance. 4. Cholecystectomy. RL: [id number] End of Report Electronically signed by Danilo Mark MD at 8:56 PM Narrative Performed At This result has an attachment that is no t available. Ordering Physician: ZOE NAVAS PACS/VR/DOSE Clinical history: Pulmonary embolus suspected, with in termediate probability. Positive d-dimer. Comparison: None Technique: CT angiography of the chest was performed w ith intravenous contrast. Axial source images, MPRS, and MIPS were rev iewed. This examination was performed according to ALARA principle s. Findings: No filling defects are seen within the pulmonary arter ial tree to suggest pulmonary embolus. There is no thoracic aortic aneurys m or dissection. Heart size is normal. No pericardial effusion is evide nt. Patchy ground glass opacities are seen within both lungs, predominat ing within the lower lobes. No significant areas of consolidation are evide nt. No pleural effusions are evident. There is no large subcarinal ly mph node. No other intrathoracic lymphadenopathy is apparent. The patient is status post cholecystectomy. There are mild degenerative changes o f the spine. No acute bony abnormalities are evident. Procedure Note [facility], Radiant Results Inft User - 2020 8:57 PM MOBILE DESIGNER Ordering Physician: ZOE NAVAS Clinical history: Pulmonary embolus susp ected, with intermediate probability. Positive d-dimer. Comparison: None Technique: CT angiography of the chest w as performed with intravenous contrast. Axial source images, MPRS, and MIPS were reviewed. This examination was performed according to A ANA CRISTINA principles. Findings: No filling defects are seen within the p ulmonary arterial tree to suggest pulmonary embolus. There is no thoracic aortic aneurysm or dissection. Heart size is normal. No pericardial eff usion is evident. Patchy ground glass opacities are seen within both case gs, predominating within the lower lobes. No significant areas of consolida tion are evident. No pleural effusions are evident. There is no large subcarinal lymph node. No other intrathoracic lymphadenopathy is apparen t. The patient is status post cholecystectomy. There are mild degenera tive changes of the spine. No acute bony abnormalities are evident. IMPRESSION Impression: 1. Patchy ground glass opacities, predom inating within the lower lobes. An atypical infectious process cannot be ex cluded. The appearance is not typical for COVID-19 infection, although this cannot be excluded. 2. Negative for pulmonary embolus. 3. Mildly enlarged subcarinal lymph node , nonspecific in appearance. 4. Cholecystectomy. RL: 460 End of Report Performing Organization Address City/[facility] Phone Number PACS/VR/DOSE POCT TEST (05/30/2020 7:29 PM MOBILE DESIGNER) Pathologist Sig nature POCT PREG HysterectomyComment: HX of Hysterectomy Specimen Urine - URINE, CLEAN CATCH COVID-19 (ID NOW RAPID TESTING) (05/30/2020 6:53 PM MOBILE DESIGNER) SARS-CoV-2 Rapid ID Not Detected Not Detected [facility] Specimen Swab - NASOPHARYNGEAL SWAB Narrative Performed At ID NOW COVID-19 Assay is an isothermal nucleic [facility] acid amplification test intended for the qualitative detection of nucleic acid from SARS-CoV-2 viral RNA in nasopharyngeal (SCHOOL BUSINESS ADMINISTRATOR) specimens. It is used under Emergency Use Authorization (EUA) by FDA. The limit of detection (LOD) of the assay is 125 Genome Equivalents/mL. A positive result is indicative of the presence of SARS-CoV-2 RNA. Clinical correlation with patient history and other diagnostic information is necessary to determine patient infection status. A negative (Not Detected) result does not preclude SARS-CoV-2 infection. In patients with clinical symptoms and other tests that are consistent with SARS-CoV-2 infection, negative results should be treated as presumptive negative and a new specimen should be tested with alternative PCR molecular test. Invalid: Please collect a new specimen for repeat patient testing if clinically indicated. Performing Organization Address City/State/[facility] Phone Number [facility] CLIA: [id number] [place] [address] XR CHEST 1 VW (05/30/2020 6:09 PM MOBILE DESIGNER) Specimen Impressions Performed At Impression: PACS/VR/DOSE No acute abnormalities evident. RL: 460 End of Report Electronically signed by Danilo Mark MD at 8:20 PM Narrative Performed At This result has an attachment that is no t available. Ordering Physician: ZOE NAVAS PACS/VR/DOSE History: Short of breath Technique: Chest, single view Comparison: None Findings: The lungs are clear. No pleural effusions are evident. Heart size is normal. The superior mediastinal silhouette is unremar kable for age and projection. Surgical clips are seen within the right u pper quadrant of the abdomen. No acute bony abnormalities are evident. Procedure Note [facility], Radiant Results Inft User - 2020 8:21 PM MOBILE DESIGNER Ordering Physician: ZOE NAVAS History: Short of breath Technique: Chest, single view Comparison: None Findings: The lungs are clear. No pleural effusion s are evident. Heart size is normal. The superior mediastinal silhoue tte is unremarkable for age and projection. Surgical clips are seen with in the right upper quadrant of the abdomen. No acute bony abnormalities are evident. IMPRESSION Impression: No acute abnormalities evident. RL: 460 End of Report Performing Organization Address [facility]/Zipcode Phone Number PACS/VR/DOSE TROPONIN I (05/30/2020 6:03 PM MOBILE DESIGNER) Pathologist Sig nature TROPONIN I <0.012 <=0.034 ng/mL [facility] Specimen Blood - VENOUS Narrative Performed At Equal or Less than 0.034 ng/ml---Normal [facility] Note: Cardiac troponin begins to rise 3-4 hours after the onset of ischemia. Repeat in 4-6 hours if the sample was drawn within 3-4 hours of the onset of the symptom and found normal. Between 0.035 and 0.120 ng/mL--- Borderline. Questionable myocardial injury or necros is Note: Serial measurement may be necessary to confirm or exclude the diagnosis of myocardial injury or necrosis; Clinical correlation (symptoms, EKGs, imaging studies, and others) required; Repeat in 4-6 hours if clinically indicated. Equal or Higher than 0.121 ng/mL---Abnormal. Myocardial Injury or Necrosis Likely Biotin has been reported to cause a negative bias, interpret results relative to patient's use of biotin. Performing Organization Address [facility] Phone Number [facility] CLIA: [id number] [place] [address] [place] [address] D-DIMER (05/30/2020 6:03 PM MOBILE DESIGNER) Pathologist Sig nature D-DIMER 0.54 (H) <0.41 g/mL (FEU) [facility] Specimen Blood - VENOUS Narrative Performed At This test may be used in conjunction with a [facility] clinical pretest probability (PTP) assessment model to exclude venous thromboembolism (VTE) in patients suspected of deep venous thrombosis (DVT) and pulmonary embolism (PE) A D-Dimer value less than 0.50 g/ml (FEU) has a negative predicative value of 96 to 100% (95% CI)and 97 to 100% (95% CI) as an aid in the diagnosis of deep vein thrombosis (DVT) and pulmonary embolism when there is low or moderate pretest probability of PE or DVT. D-Dimer values are expressed in initial fibrinogen equivalent units (FEU)" The assay results should be used with other information, including the clinical context, in forming a diagnosis. Performing Organization Address [facility] Phone Number [facility] CLIA: [id number] [place] [address] COMP. METABOLIC PANEL ([id number]) (05/30/2020 6:03 PM MOBILE DESIGNER) Pathologist [facility] Azima NA 138 135 - 145 [facility] mmol/L [facility] K 4.0 3.5 - 5.0 [facility] mmol/L [facility] CL 101 98 - 108 mmol/L [facility] CO2 TOTAL 27 23 - 31 mmol/L [facility] AGAP 10 2 - 16 [facility] BUN 5 (L) 7 - 23 mg/dL [facility] GLUCOSE 136 (H) 70 - 110 mg/dL [facility] CREATININE 0.56 0.50 - 1.04 [facility] mg/dL [facility] TOTAL BILI 0.4 0.1 - 1.1 mg/dL [facility] CALCIUM 9.0 8.6 - 10.6 [facility] mg/dL [facility] T PROTEIN 8.3 (H) 6.3 - 8.2 g/dL [facility] ALBUMIN 4.6 3.5 - 5.0 g/dL [facility] ALK PHOS 93 34 - 122 U/L [facility] ALTv 21 5 - 35 U/L [facility] [place] [facility] AST(SGOT) 25 13 - 40 U/L [facility] [place] eGFR Calculation 119.3 mL/min/1.73m2 [facility] (Non-Formerly named [facility] LABORATORY Somali) eGFR Calculation 144.6 mL/min/1.73m2 [facility] () [facility] Specimen Blood - VENOUS Narrative Performed At Association of Glomerular Filtration Rate (GFR) [facility] and Staging of Kidney Disease* + + +- + | GFR (mL/min/1.73 m2) | With Kidney Damage | Without Kidney Damage + + +- + | >90 | Stage one | Normal + + +- + | 60-89 | Stage two | Decreased GFR + + +- + | 30-59 | Stage three | Stage three + + +- + | 15-29 | Stage four | Stage four + + +- + | <15 (or dialysis) | Stage five | Stage five + + +- + *Each stage assumes the associated GFR level has been in effect for at least three months. Stages 1 to 5, with or without kidney disease, indicate chronic kidney disease. Notes: Determination of stages one and two (with eGFR >59mL/min/1.73 m2) requires estimation of kidney damage for at least three months as defined by structural or functional abnormalities of the kidney, manifested by either: Pathological abnormalities or Markers of kidney damage (including abnormalities in the composition of the blood or urine or abnormalities in imaging tests). Performing Organization Address City/State/Zipcode Phone Number [facility] CLIA: [id number] [place] [address] CBC WITH DIFF (05/30/2020 6:03 PM MOBILE DESIGNER) Pathologist Sig nature WBC 14.69 (H) 4.30 - 11.10 [facility] 10*3/L HOSPITAL LAB[facility]ORY RBC 4.34 3.93 - 5.25 [facility] 10*6/L HOSPITAL [facility]ORY HGB 13.0 11.6 - 15.0 [facility] g/dL HOSPITAL [facility] HCT 39.7 35.7 - 45.2 % [facility] MCV 91.5 80.6 - 95.5 fL [facility] MCH 30.0 25.9 - 32.8 pg [facility] MCHC 32.7 31.6 - 35.1 [facility] g/dL [facility] RDW-SD 40.5 39.0 - 49.9 fL [facility] RDW-CV 12.2 12.0 - 15.5 % [facility] PLT 265 166 - 358 [facility] 10*3/L [facility] MPV 9.4 (L) 9.5 - 12.9 fL [facility] NRBC/100 WBC 0.0 0.0 - 10.0 /100 [facility] WBCs [facility] NRBC x10^3 <0.01 10*3/L [facility] GRAN MAT (NEUT) % 93.5 % [facility] IMM GRAN % 0.80 % [facility] LYMPH % 4.8 % [facility] MONO % 0.6 % [facility] EOS % 0.1 % [facility] BASO % 0.2 % [facility] GRAN MAT x10^3(ANC) 13.73 (H) 1.88 - 7.09 [facility] 10*3/uL HOSPITAL LAB[facility]ORY IMM GRAN x10^3 0.12 (H) 0.00 - 0.06 [facility] 10*3/uL [facility]PITAL [facility] LYMPH x10^3 0.71 (L) 1.32 - 3.29 [facility] 10*3/uL [facility]PITAL [facility] MONO x10^3 0.09 (L) 0.33 - 0.92 [facility] 10*3/uL HOSPITAL LAB[facility] EOS x10^3 <0.03 (L) 0.03 - 0.39 [facility] 10*3/uL HOSPITAL [facility] BASO x10^3 0.03 0.01 - 0.07 [facility] 10*3/uL [facility] Specimen Blood - VENOUS Performing Organization Address City/State/Zipcode Phone Number [facility] CLIA: [id number] [place] [address] documented in this encounter Visit Diagnoses Diagnosis Atypical pneumonia - Primary Pneumonia, organism unspecified SOB (shortness of breath) Shortness of breath Rash in adult documented in this encounter Administered Medications Medication Order MAR Action Action Date Dose Rate Site amoxicillin-clavulanate Given 05/30/2020 10:02 PM MOBILE DESIGNER 1 tablet (AUGMENTIN) 875-125 mg per tablet 1 tablet 1 tablet, Oral, ONCE NOW, 1 dose, 05/30/20 at 2300, Routine, Reason for Anti-Infective: Documented Infection, Documented Infection Site: Respiratory, Duration of Therapy: Other (see Comments) tnzpwkuuaa-mlprfpozqooav-muua (ESGIC) Given 05/30/2020 6:52 PM MOBILE DESIGNER 1 tablet 50-325-40 mg tablet 1 tablet 1 tablet, Oral, ONCE NOW, 1 dose, 05/30/20 at 1945, Routine diphenhydrAMINE (BENADRYL) injection 50 mg Given 05/30/2020 6:52 PM MOBILE DESIGNER 50 mg 50 mg, Slow IV Push, ONCE, 1 dose, 05/30/20 at 1815, STAT famotidine (PEPCID (PF)) injection 20 mg Given 05/30/2020 8:26 PM MOBILE DESIGNER 20 mg 20 mg, Slow IV Push, ONCE, 1 dose, 05/30/20 at 2130, EVANS hydrOXYzine (ATARAX) tablet 25 mg Given 05/30/2020 8:26 PM MOBILE DESIGNER 25 mg 25 mg, Oral, ONCE, 1 dose, 05/30/20 at 2130, EVANS iohexol (OMNIPAQUE 350 BULK-150 mL) Given 05/30/2020 7:37 PM CS T 100 mL injection 100 mL 100 mL, Intravenous, ONCE, 1 dose, 05/30/20 at 1945, Routine ketorolac (TORADOL) injection 15 mg Given 05/30/2020 8:26 PM MOBILE DESIGNER 15 mg 15 mg, Slow IV Push, ONCE, 1 dose, 05/30/20 at 2130, EVANS, member services representative approving Restricted medication: ZOE NAVAS methylPREDNISolone sod succ (SOLU-MEDROL Given 05/30/2020 6:52 PM MOBILE DESIGNER 40 mg (PF)) injection 40 mg 40 mg, IV Piggyback, ONCE, 1 dose, 05/30/20 at 1815, STAT NaCl 0.9% (NS) bolus infusion New Bag 05/30/2020 6:52 PM MOBILE DESIGNER 1,000 mL 999 mL/hr 1,000 mL at 999 mL/hr, 1,000 mL, IV Infusion, ONCE, 1 dose, 05/30/20 at 1715, EVANS documented in this encounter Additional Health Concerns Infection Onset Date Last Indicated Resolved Time COVID-19 Rule Out 05/30/2020 05/30/2020 05/30/2020 7: 23 PM MOBILE DESIGNER documented as of this encounter Insurance Payer Benefit Plan / Subscriber ID Effective Phone Address T ype Group Dates MEDICAID MEDICAID PENDING [id number] [place] [address] documented as of this encounter
[2020-06-02 13:17] LABS: Absolute Lymphocytes (CBC) 1.8 K/uL (0.7-4.9); Basophils % 0.2 % (0-1.3); Hematocrit 39.1 % (36.0-45.0); Lymphocytes % 12.5 % (15.3-44.8); MPV 7.9 fL (7.6-11.3); RBC Red Blood Cell Count 4.33 M/uL (3.86-4.86)
--- NOTE | 2020-06-02 13:27 | RAD REPORT ---
EXAM DESCRIPTION: RAD - Chest Single View - 06/02/2020 1:03 pm CLINICAL HISTORY: COUGH Chest pain. COMPARISON: Chest Single View dated 05/27/2019; CHEST SINGLE VIEW dated 09/27/2012 FINDINGS: Portable technique limits examination quality. The lungs are grossly clear. The heart is normal in size. No displaced fractures. IMPRESSION: No acute intrathoracic process suspected.
[2020-06-02 13:33] LABS: Potassium 3.9 mmol/L (3.5-5.1)
--- NOTE | 2020-06-02 14:36 | EDPHYS ---
Physician Documentation [facility] Name: Naz Boyle Age: 40 yrs Sex: Female : 1980 Arrival Date: 06/02/2020 Time: 09:59 Bed 26 Private MD: ED Physician Dimitri Hawkins HPI: 06/02 13:04 This 40 yrs old Female presents to ER via Wheelchair with complaints of Rash. rn 13:04 The patient's rash thought to be caused by an unknown cause. The rash is located on the rn body diffusely. The rash can be described as erythematous, macular, papular, urticarial. Onset: The symptoms/episode began/occurred 5 day(s) ago. Associated signs and symptoms: Pertinent positives: burning sensation, itching, Pertinent negatives: fever, swelling of lips, swelling of throat, swelling of tongue, vomiting, wheezing. Severity of symptoms: At their worst the symptoms were moderate in the emergency department the symptoms are unchanged. The patient has not experienced similar symptoms in the past. The patient has been recently seen by a physician:. Reports 5 days of rash, seen at 2 different ERs, given steroids and itch medication both times. Reports second visit, d-dimer was elevated so CT chest for PE performed, was negative, may have shown "mild pneumonia". Reports rash not improving, still itching, and has burning sensation to skin. taking steroids/abx/atarax. No change in urination, no sore throat. No joint pains or problems. . Historical: - Allergies: 10:32 No Known Allergies; ss - PMHx: 10:32 BRADYCARDIA; hypotension; Hypothyroidism; Rheumatoid Arthritis; Lupus; Seizures; RLS; ss - PSHx: 10:32 Appendectomy; ; Hysterectomy; cyst removal; Cholecystectomy; Carpal Tunnel ss Repair; - Immunization history:: Adult Immunizations up to date. - Social history:: Smoking status: Patient reports the use of cigarette tobacco products, smokes one-half pack cigarettes per day. - Family history:: not pertinent. - Hospitalizations: : No recent hospitalization is reported. ROS: 13:04 Constitutional: Negative for fever, chills, and weight loss, Eyes: Negative for injury, rn pain, redness, and discharge, ENT: Negative for injury, pain, and discharge, Neck: Negative for injury, pain, and swelling, Cardiovascular: Negative for chest pain, palpitations, and edema, Respiratory: Negative for wheezing, and pleuritic chest pain, Abdomen/GI: Negative for abdominal pain, nausea, vomiting, diarrhea, and constipation, MS/Extremity: Negative for injury and deformity, Skin: + diffuse rash and itching Neuro: Negative for headache, weakness, numbness, tingling, and seizure. Exam: 13:04 Constitutional: This is a well developed, well nourished patient who is awake, alert, rn and in no acute distress. Head/Face: Normocephalic, atraumatic. ENT: No stridor Cardiovascular: Regular rate and rhythm. No pulse deficits. Respiratory: No increased work of breathing, no retractions or nasal flaring. Abdomen/GI: Soft, non-tender Skin: Warm, dry, + diffuse erythematous and clonfluent rash, no bullae, no skin sloughing, no fluctuance. MS/ Extremity: Pulses equal, no cyanosis. No edema. Neuro: Awake and alert, GCS 15 Vital Signs: 10:28 BP 119 / 79; Pulse 84; Resp 18; Temp 98.2(TE); Pulse Ox 99% on R/A; Weight 92.99 kg; ss Height 5 ft. 11 in. (180.34 cm); Pain 7/10; 12:00 BP 118 / 61; Pulse 83; Resp 16; Pulse Ox 99% on R/A; zb 13:00 BP 97 / 79; Pulse 73; Resp 17; Pulse Ox 98% on R/A; zb 14:00 BP 103 / 73; Pulse 75; Resp 18; Pulse Ox 97% on R/A; zb 10:28 Body Mass Index 28.59 (92.99 kg, 180.34 cm) ss MDM: 12:02 Patient medically screened. rn 14:33 Differential diagnosis: allergic reaction, nonspecific rash, lupus rash, reactive rash, rn allergic reaction. Data reviewed: vital signs, nurses notes, lab test result(s), radiologic studies, plain films, and as a result, I will discharge patient. Counseling: I had a detailed discussion with the patient and/or guardian regarding: the historical points, exam findings, and any diagnostic results supporting the discharge/admit diagnosis, lab results, radiology results, the need for outpatient follow up, to return to the emergency department if symptoms worsen or persist or if there are any questions or concerns that arise at home. Special discussion: I discussed with the patient/guardian in detail that at this point there is no indication for admission to the hospital. It is understood, however, that if the symptoms persist or worsen the patient needs to return immediately for re-evaluation. ED course: CXR neg, already on abx, strep and flu neg, COVID neg, PE study negative at outside ER, non-toxic, no signs of TEN or SJS, will dc home with continuation of steroids and allergic medication, urged her to f/u with her home health care provider. . 06/02 12:15 Order name: CBC with Diff; Complete Time: 13:33 rn 06/02 12:15 Order name: Basic Metabolic Panel; Complete Time: 13:52 rn 06/02 12:15 Order name: CK; Complete Time: 13:52 rn 06/02 12:15 Order name: Flu; Complete Time: 13:33 rn 06/02 12:15 Order name: Strep; Complete Time: 13:33 rn 06/02 13:15 Order name: Throat Culture [facility] 06/02 12:15 Order name: IV Start; Complete Time: 13:08 rn 06/02 12:15 Order name: XRAY Chest (1 view); Complete Time: 13:33 rn Administered Medications: No medications were administered Disposition: 06/02/20 14:36 Discharged to Home. Impression: Rash and other nonspecific skin eruption. - Condition is Stable. - Discharge Instructions: Rash. - Medication Reconciliation Form, Thank You Letter, Antibiotic Education, Prescription Opioid Use form. - Follow up: Private Physician; When: As needed; Reason: Recheck today's complaints, Re-evaluation by your physician. - Problem is an ongoing problem. - Symptoms are unchanged. Signatures: Dispatcher [employer] EDID Dimitri Hawkins MD MD rn Smirch, Shelby, RN RN ss Brown, Zipporah, RN RN zb Corrections: (The following items were deleted from the chart) 13:11 13:04 Reports 5 days of rash, seen at 2 different ERs, given steroids and itch crna both times. Reports second visit, d-dimer was elevated so CT chest for PE performed, was negative, may have shown "mild pneumonia". Reports rash not improving, still itching, and has burning sensation to skin. taking steroids/abx/atarax. No change in urination, no sore throat.. rn 14:55 14:36 06/02/2020 14:36 Discharged to Home. Impression: Rash and other nonspecific skin zb eruption. Condition is Stable. Forms are Medication Reconciliation Form, Thank You Letter, Antibiotic Education, Prescription Opioid Use. Follow up: Private Physician; When: As needed; Reason: Recheck today's complaints, Re-evaluation by your physician. Problem is an ongoing problem. Symptoms are unchanged. rn
--- NOTE | 2020-06-02 14:36 | ER ---
Nurse's Notes [facility] Name: Naz Boyle Age: 40 yrs Sex: Female : 1980 Arrival Date: 06/02/2020 Time: 09:59 Bed 26 Private MD: Diagnosis: Rash and other nonspecific skin eruption Presentation: 06/02 10:28 Chief complaint: Patient states: Rash all over body that began 4.5 days ago. Pt was ss seen in ER twice and given steroids and various other medications that do not seem to be helping. Pt c/o SOB as well and was had CT chest which was negative for PE and was negative for covid 2 days ago. It was found that patient may have atypical pneumonia after having CT 2 days ago, which may have caused her body to have an inflammatory response to the infection causing the rash. Coronavirus screen: Client denies travel out of the [place] in the last 14 days. Ebola Screen: Patient denies exposure to infectious person. Patient denies travel to an Ebola-affected area in the 21 days before illness onset. Initial Sepsis Screen: Does the patient meet any 2 criteria? No. Patient's initial sepsis screen is negative. Does the patient have a suspected source of infection? No. Patient's initial sepsis screen is negative. Risk Assessment: Do you want to hurt yourself or someone else? Patient reports no desire to harm self or others. Onset of symptoms was May 28, 2020. 10:28 Method Of Arrival: Wheelchair ss 10:28 Acuity: MIGUEL 3 ss Historical: - Allergies: 10:32 No Known Allergies; ss - PMHx: 10:32 BRADYCARDIA; hypotension; Hypothyroidism; Rheumatoid Arthritis; Lupus; Seizures; RLS; ss - PSHx: 10:32 Appendectomy; ; Hysterectomy; cyst removal; Cholecystectomy; Carpal Tunnel ss Repair; - Immunization history:: Adult Immunizations up to date. - Social history:: Smoking status: Patient reports the use of cigarette tobacco products, smokes one-half pack cigarettes per day. - Family history:: not pertinent. - Hospitalizations: : No recent hospitalization is reported. Screenin:21 Abuse screen: Denies threats or abuse. Denies injuries from another. Nutritional zb screening: No deficits noted. Tuberculosis screening: No symptoms or risk factors identified. Fall Risk Fall in past 12 months (25 points). Secondary diagnosis (15 points) seizures, impaired mobility, CVA, IV access (20 points). Ambulatory Aid- None/Bed Rest/Nurse Assist (0 pts). Gait- Normal/Bed Rest/Wheelchair (0 pts) Mental Status- Oriented to own ability (0 pts). Total Chirinos Fall Scale indicates High Risk Score (45 or more points). Fall prevention measures have been instituted. Side Rails Up X 2 Placed Close to Nursing Station Frequent Obs/Assessments Occuring Family Present and informed to notify staff if the need to leave the bedside As available patient and family educated on Fall Prevention Program and Strategies. Assessment: 12:21 General: Appears in no apparent distress. uncomfortable, Behavior is calm, cooperative, zb appropriate for age. Neuro: Level of Consciousness is awake, alert, obeys commands, Oriented to person, place, time. Cardiovascular: Reports shortness of breath, Capillary refill < 3 seconds in bilateral fingers Patient's skin is warm and dry. Respiratory: Reports shortness of breath at rest Airway is patent is compromised Respiratory effort is even, unlabored, Respiratory pattern is regular, symmetrical, Breath sounds are clear bilaterally. the patient has mild shortness of breath Denies cough. GI: No signs and/or symptoms were reported involving the gastrointestinal system. : No signs and/or symptoms were reported regarding the genitourinary system. EENT: No signs and/or symptoms were reported regarding the EENT system. Derm: Skin is intact, is healthy with good turgor, Rash noted that is macular, itchy, papular, red, raised, Reports itching, pain. Musculoskeletal: Capillary refill < 3 seconds, Range of motion: limited in RUE and RLE. 13:20 Reassessment: Patient appears in no apparent distress at this time. Patient and/or zb family updated on plan of care and expected duration. Pain level reassessed. Patient is alert, oriented x 3, equal unlabored respirations, skin warm/dry/pink. pt lying in bed at this time no c/o of anything. 14:38 Reassessment: ECP at bedside explain POC . Reassessment: Patient appears in no apparent zb distress at this time. Patient and/or family updated on plan of care and expected duration. Pain level reassessed. Patient is alert, oriented x 3, equal unlabored respirations, skin warm/dry/pink. pt resting in bed at this time. Vital Signs: 10:28 BP 119 / 79; Pulse 84; Resp 18; Temp 98.2(TE); Pulse Ox 99% on R/A; Weight 92.99 kg; Height 5 ft. 11 in. (180.34 cm); Pain 7/10; 12:00 BP 118 / 61; Pulse 83; Resp 16; Pulse Ox 99% on R/A; zb 13:00 BP 97 / 79; Pulse 73; Resp 17; Pulse Ox 98% on R/A; zb 14:00 BP 103 / 73; Pulse 75; Resp 18; Pulse Ox 97% on R/A; zb 10:28 Body Mass Index 28.59 (92.99 kg, 180.34 cm) ED Course: 09:59 Patient arrived in ED. bp1 10:31 Triage completed. ss 10:32 Arm band placed on right wrist. ss 12:02 Dimitri Hawkins MD is Attending Physician. rn 12:06 Chrissie Chaudhari RN is Primary Nurse. zb 12:24 Patient has correct armband on for positive identification. Fall risk band placed. Bed zb in low position. Call light in reach. Side rails up X 1. Pulse ox on. NIBP on. Door closed. Noise minimized. Warm blanket given. 13:04 XRAY Chest (1 view) In Process Unspecified. EDMS 13:07 Inserted saline lock: 20 gauge in left antecubital area, using aseptic technique. Blood dh4 collected. 13:08 Strep Sent. dh4 13:08 Flu Sent. dh4 14:54 No provider procedures requiring assistance completed. IV discontinued, intact, zb bleeding controlled, No redness/swelling at site. Pressure dressing applied. Administered Medications: No medications were administered Outcome: 14:36 Discharge ordered by . rn 14:54 Discharged to home via wheelchair. zb 14:54 Condition: stable 14:54 Discharge instructions given to patient, Instructed on discharge instructions, follow up and referral plans. Demonstrated understanding of instructions, follow-up care. 14:55 Patient left the ED. zb Signatures: Dispatcher [employer] EDVT Dimitri Hawkins MD MD rn Smirch, Shelby, RN RN Norris Concepcion dh4 Rosalee Zafar bp1 Brown, Chrissie, RN RN zb
== END 2020-06-02 14:55 | disposition home or self-care (01) ==
LOC: ER 09:55
DX: R21 Rash and other nonspecific skin eruption (principal); F17.210 Nicotine dependence, cigarettes, uncomplicated
CPT/HCPCS: 36415; 71045; 80048; 82550; 85025; 87070; 87081; 87804; 99284

== ENCOUNTER 2020-08-03 14:21 | Emergency (ER) | payer BC ==
--- OUTSIDE RECORDS SUMMARY | 2020-08-03 14:23 | XMS REPORT | Continuity of Care Document ---
:1980 Author Organization [facility] t Address [address] [place] [address] Care Team Providers Name Role Phone Akiko [...] Facility Department ID 2020-05-30 2020-05-30 Emergency [facility] [id number] [id number] 16:01:00 23:26:00 Zoe Ayala [id number] [place] [id number] [place] [address] [phone] [id number] Results This patient has no known results.
--- NOTE | 2020-08-03 18:03 | ER ---
Nurse's Notes [facility] Name: Naz Boyle Age: 40 yrs Sex: Female : 1980 Arrival Date: 08/03/2020 Time: 14:23 Bed Waiting Private MD: Diagnosis: Presentation: 08/03 15:07 Chief complaint: Patient states: Blood in the urine started today, noticed clots when ca1 wiping. Reports pain on suprapubic area and lower back. Coronavirus screen: Client denies travel out of the [place] in the last 14 days. At this time, the client does not indicate any symptoms associated with coronavirus-19. Ebola Screen: Patient negative for fever greater than or equal to 101.5 degrees Fahrenheit, and additional compatible Ebola Virus Disease symptoms Patient denies exposure to infectious person. Patient denies travel to an Ebola-affected area in the 21 days before illness onset. No symptoms or risks identified at this time. Initial Sepsis Screen: Does the patient meet any 2 criteria? No. Patient's initial sepsis screen is negative. Does the patient have a suspected source of infection? No. Patient's initial sepsis screen is negative. Risk Assessment: Do you want to hurt yourself or someone else? Patient reports no desire to harm self or others. Onset of symptoms was August 03, 2020. 15:07 Method Of Arrival: Wheelchair ca1 15:07 Acuity: MIGUEL 3 ca1 FIXED INCOME DIRECTOR: 15:09 LMP N/A - Hysterectomy ca1 Historical: - Allergies: 15:09 No Known Allergies; ca1 - PMHx: 15:09 BRADYCARDIA; hypotension; Hypothyroidism; Lupus; Rheumatoid Arthritis; RLS; Seizures; ca1 CVA; - PSHx: 15:09 Appendectomy; ; Hysterectomy; cyst removal; Cholecystectomy; Carpal Tunnel ca1 Repair; - Immunization history:: Flu vaccine is up to date. - Social history:: Smoking status: Patient reports the use of cigarette tobacco products, smokes one-half pack cigarettes per day. Vital Signs: 15:07 BP 107 / 74; Pulse 86; Resp 16 S; Temp 97.2(TE); Pulse Ox 100% on R/A; Weight 92.99 kg ca1 (R); Height 5 ft. 11 in. (180.34 cm) (R); Pain 6/10; 15:07 Body Mass Index 28.59 (92.99 kg, 180.34 cm) ca1 ED Course: 14:23 Patient arrived in ED. am2 15:09 Triage completed. ca1 15:09 Arm band placed on right wrist. ca1 18:01 Patient's name was called from ER lobby. No response. Unable to locate patient. Will ca1 disposition as left without being seen by a provider. Administered Medications: No medications were administered Outcome: 18:01 Patient left the ED. ca1 Signatures: Heidi Goddard am2 Gladis Kiran, RN RN ca1
[2020-08-03 18:25] VITALS: BP 107/74; TEMP 97.2; O2SAT 100
== END 2020-08-03 18:01 | disposition left against medical advice (07) ==
LOC: ER 14:21
DX: Z02.9 Encounter for administrative examinations, unspecified (principal)
CPT/HCPCS: 99281

== ENCOUNTER 2020-12-20 21:12 | Emergency (ER) | payer BC ==
--- OUTSIDE RECORDS SUMMARY | 2020-12-20 21:16 | XMS REPORT | Continuity of Care Document ---
:1980 Author Organization [facility] t Address [address] [place] [address] Care Team Providers Name Role Phone Lizet MARIA, Ayad Primary Care Physician Ayad Lucas MD Attending Clinician Akiko Raymond Attending Clinician Payers Payer Name Policy Type Policy Effective Date Expiration Date Sour ce Number BCBSBCBS CHOICE [id number] 2018 [place] PPO/FEDERAL 00:00:00 [facility] EMPL [id number] 2018-Presen tPPO Problems This patient has no known problems. Allergies, Adverse Reactions, Alerts Allergy Allergy Status Severity Reaction(s) Onset Inactive Treating Comm ents Source Name Type Date Date Clinician Predniso Propensi Active Rash "When I [place] on ne ty to 4-15 was take Methodi adverse 00:00: 20mg st reaction 00 daily I s to broke out drug in a rash". Social History Social Habit Start Date Stop Date Quantity Comments [facility] Dr[facility] Alcohol Binge History SDOH 2020-09-07 2020-09-07 1 [place] [facility] Alcohol Frequency 00:00:00 00:00:00 Tobacco use and 2020-09-07 2020-09-07 Never used [facility] M ethodist exposure 00:00:00 00:00:00 Alcohol intake 2020-09-07 2020-09-07 Lifetime Piter Lemus thodist 00:00:00 00:00:00 non-drinker (finding) Sex Ass[birth year] At [birth year] Piter irizarryodist 00:00:00 00:00:00 Smoking Status Start Date Stop Date Source Current every day smoker 2020-09-07 00:00:00 [place] [facility] Medications Ordered Filled Start Stop Current Ordering Indication Dosage Frequency Signature Comments Components Source Medication Medication Date Date Medication? Clinician (SIG) Name Name lacosamide Yes 50mg Q.5D Take 50 mg [place] (Vimpat) 50 4-15 by mouth 2 Me thodi mg tablet 09:30: (two) st 01 times a day. levETIRAcet Yes 250mg Take 250 [place] am (KEPPRA) 4-15 mg by Methodi 250 MG 09:30: mouth. st tablet 01 Taking 1,500mg BID. levothyroxi Yes 175ug QD Take 175 [place] ne 4-15 mcg by Methodi (SYNTHROID) 09:30: mouth st 175 mcg 01 daily. tablet rosuvastati Yes 10mg QD Take 10 mg [place] n (CRESTOR) 4-15 by mouth Meth nicolasa 10 mg 09:30: daily. st tablet 01 gabapentin Yes 100mg Take 100 [place] (NEURONTIN) 4-15 mg by Methodi 100 mg 09:30: mouth. st capsule 01 Taking 1 tablet in the AM and 3 tablets in the PM. hydrOXYchlo Yes 200mg QD Take 200 [place] roQUINE 4-15 mg by Methodi (PLAQUENIL) 09:30: mouth st 200 mg 01 daily. tablet lubiproston Yes 24ug Q.5D Take 24 [place] e (AMITIZA) 4-15 mcg by Method i 24 MCG 09:30: mouth 2 st capsule 01 (two) times a day with meals. traZODone Yes 100mg QD Take 100 [place] (DESYREL) 4-15 mg by Methodi 50 MG 09:30: mouth st tablet 01 nightly. aspirin 2021-0 Yes 81mg QD Take 81 mg Imani logan (ECOTRIN) 4-15 by mouth Method i 81 MG 09:30: daily. st enteric 01 coated tablet Lactobac Yes Take by Juju n no.41/Bifid 4-15 mouth. Method i obact no.7 09:30: st (PROBIOTIC- 01 10 ORAL) midodrine Yes 2.5mg [id number] Take 2.5 [place] (PROAMATINE 4-15 [id number] mg by M ethodi ) 2.5 MG 09:30: 3D mouth 3 st tablet 01 (three) times a day. Vital Signs Vital Name Observation Time Observation Value Comments Source Body height 2020-09-07 09:29:00 180.3 cm Piter Ortega Body weight 2020-09-07 09:29:00 92.987 kg Piter Ortega BMI 2020-09-07 09:29:00 28.59 kg/m2 Piter Ortega Procedures Procedure Date / Time Performed Performing Clinician [facility] e FACTOR VIII ASSAY 2020-09-07 11:35:00 Dereck Lucas Me thodist C-REACTIVE PROTEIN 2020-09-07 11:35:00 Dereck Lucas M ethodist ANTITHROMBIN III LEVEL 2020-09-07 11:35:00 Dereck Lucas FUNCTIONAL PROTEIN C 2020-09-07 11:35:00 Dereck Lucas FUNCTIONAL PROTEIN S 2020-09-07 11:35:00 Dereck Lucas LUPUS ANTICOAGULANT PANEL 2020-09-07 11:35:00 Dereck Lucaston [facility] CARDIOLIPIN ANTIBODIES 2020-09-07 11:35:00 Dereck Lucas CBC WITH PLATELET AND 2020-09-07 11:08:00 Dereck Lucas n [facility] DIFFERENTIAL DOUBLE-STRANDED DNA 2020-09-07 11:08:00 Dereck Lucas (DSDNA) ANTIBODIES, CRITHIDIA C3 COMPLEMENT COMPONENT 2020-09-07 11:08:00 Dereck Lucasist VAZQUEZ ANTIBODY 2020-09-07 11:08:00 Dereck Lucas Meth odist OCT, OPTIC NERVE - OU - 2020-09-07 10:53:14 Dereck Lucas BOTH EYES AUTOMATED VISUAL FIELD, 2020-09-07 10:53:08 Dereck Lucas EXTENDED - OU - BOTH EYES BETA-2 GLYCOPROTEIN 1 2020-09-07 00:00:00 Dereck Lucas ANTIBODY, IGM Plan of Care Planned Activity Planned Date Details Comments Source Future Scheduled 2020-12-24 INFLUENZA VACCINE Juju bowen [facility] Test 00:00:00 [code = INFLUENZA VACCINE] Future Scheduled 2000 Screening for [facility] thodist Test 00:00:00 malignant neoplasm of cervix (procedure) [code = 630415902] Future Scheduled 1997 Hepatitis C [place] Met hodist Test 00:00:00 screening (procedure) [code = 443776005] Future Scheduled 1991 COVID-19 VACCINE (1) Da verma [facility] Test 00:00:00 [code = COVID-19 VACCINE (1)] Encounters Start End Encounter Admission Attending Care Care Encounter Source Date/Time Date/Time Type Type Clinicians Facility Department ID 2020-09-07 2020-09-07 Outpatient LIZETJESSICAW [facility] [id number] [place] 00:00:00 00:00:00 620 Method i 2020-09-07 2020-09-07 Outpatient LIZET DERECK [facility] [id number] [place] 00:00:00 00:00:00 109 Method i 2020-09-07 2020-09-07 Outpatient LIZETJESSICAW [facility] [id number] [place] 00:00:00 00:00:00 335 Method i 2020-09-07 2020-09-07 Outpatient LIZETJESSICAW [facility] [id number] [place] 00:00:00 00:00:[address] 2020-05-30 2020-05-30 Emergency [facility] [id number] 16:01:00 23:26:00 Zoe Ayala [id number] [place] [id number] [place] [id number] Results Test Description Test Time Test Comments Results Result Comments Source Beta-2 glycoprotein 1 antibody, IgG 2020-09-14 03:57:00 Test Item Value Reference Range Interpretation Comme nts Beta-2 glycoprotein 11 See_Comment The anti phospholipid antibody 1 antibody, IgG syndrome (AP S) leoncio (test code = clinical-pathol ogic correlation 27918-0) that includesa clinical event (e.g. thrombosi s, pregnancyloss, thrombocytopeni a) and persistent positiveantipho spholipid antibodies (IgM or IgG SONYA>40 MPL/GPL,IgM or IgG anti-b2GPI antibodies ora lupus anticoagulant). International consensusguidel kathleen for APS suggest waiting at least 12weeks before retestin g to confirm antibodypersist ence. The [facility] immunologicalcl assification criteria for [facility] lupuserythemato woodrow (SLE) include testing for iso typeIgA, which has yet to be incor porated into APScriteria. Lo w level antiphospholipi d antibodiesmay sometimes be de tected in the setting ofinfec tion, drug therapy or aging. [Aut omated message] The system Globili h generated this result transmit justino reference range: < OR = 2 0 SGU. The reference range was not used to interpret this result as normal/abnormal . JASMEET (test code = FASTING: UNKNOWN JASMEET) RAC (test code = Performing RAC) Organization Information: Site ID: EZ Name: [facility], Address: [address] [place] [address] Director: Pat Ramirez MD,PhD,MIKY [facility] South[facility]eta-2 glycoprotein 1 antibody, [id number] 03:57:00 Test Item Value Reference Range Interpretation Comments Beta-2 glycoprotein <9 See_Comment [Automa justino 1 antibody, IgM message] The (test code = system which 84579-0) generated this result transmitted reference range : < OR = 20 [facility]. The reference range was not used to interpr et this result as normal/abnormal . JASMEET (test code = FASTING: UNKNOWN JASMEET) RAC (test code = Performing RAC) Organization Information: Site ID: EZ Name: [facility], Address: [address] [place], [place] [address] Director: Pat Ramirez MD,PhD,MIKY [place] MethodistC4 complement [id number] 12:53:00 Test Item Value Reference Range Interpretation Comments C4 complement (test 30 mg/dL 15-57 code = 4498-2) RAC (test code = RAC) Performing Organization Information: Site ID: JAVIER Name: [facility] Address: [address] [place] [id number] Director: Canelo Giron Dumas Latter DayC3 complement [id number] 12:53:00 Test Item Value Reference Range Interpretation Comments C3 complement (test 124 mg/dL 83-193 code = 4485-9) RAC (test code = RAC) Performing Organization Information: Site ID: JAVIER Name: [facility] Address: [address] [place] [address] Director: Canelo Giron [place] Latter DayCBC with platelet and [id number] 12:53:00 Test Item Value Reference Range Interpretation Comments WBC (test code = 10.8 See_Comment [Automated 1490-2) message] The system which generated this result transmitted reference range : 3.8 - 10.8 Thousand/uL. Th e reference range was not used to interpret this result as normal/abnormal . RBC (test code = 4.22 See_Comment [Automated 519-8) message] The system which generated this result transmitted reference range : 3.80 - 5.10 Million/uL. The reference range was not used to interpret this result as normal/abnormal . HGB (test code = 12.7 g/dL 11.7-15.5 718-7) HCT (test code = 37.9 % 35.0-45.0 4544-3) MCV (test code = 89.8 fL 80.0-100.0 787-2) MCH (test code = 30.1 pg 27.0-33.0 785-6) MCHC (test code = 33.5 g/dL 32.0-36.0 786-4) RDW (test code = 12.5 % 11.0-15.0 788-0) Platelet count (test 250 See_Comment [Autom ated code = 777-3) message] The system which generated this result transmitted reference range : 140 - 400 Thousand/uL. Th e reference range was not used to interpret this result as normal/abnormal . MPV (test code = 10.3 fL 7.5-12.5 776-5) Neutrophils, 8089 See_Comment H [Automated absolute (test code message] The = 751-8) system which generated this result transmitted reference range : 1,500 - 7,800 cells/uL. The reference range was not used to interpret this result as normal/abnormal . Lymphocytes, 2257 See_Comment [Automated absolute (test code message] The = 731-0) system which generated this result transmitted reference range : 850 - 3,900 cells/uL. The reference range was not used to interpret this result as normal/abnormal . Monocytes, absolute 367 See_Comment [Automa justino (test code = 742-7) message] The system which generated this result transmitted reference range : 200 - 950 cells/uL. The reference range was not used to interpret this result as normal/abnormal . Eosinophils, 43 See_Comment [Automated absolute (test code message] The = 711-2) system which generated this result transmitted reference range : 15 - 500 cells/uL. The reference range was not used to interpret this result as normal/abnormal . Basophils, absolute 43 See_Comment [Automa justino (test code = 704-7) message] The system which generated this result transmitted reference range : 0 - 200 cells/u L. The reference range was not used to interpr et this result as normal/abnormal . Neutrophils (test 74.9 % code = 770-8) Lymphocytes (test 20.9 % code = 736-9) Monocytes (test code 3.4 % = 5905-5) Eosinophils (test 0.4 % code = 713-8) Basophils + RC (test 0.4 % code = 706-2) RAC (test code = Performing RAC) Organization Information: Site ID: RGA Name: [facility] Address: [address] [place] [phone] Director: Canelo Giron Lab Interpretation Abnormal (test code = 25748-6) [place] [facility] Mexicouble-stranded DNA (dsDNA) antibodies, [id number] 12:53:00 Test Item Value Reference Range Interpretation Comments dsDNA Ab, 2 IU/mL Immunoassay (test IU/m L code = 5130-0) Interpretatio n < or = 4 Neg ative 5-9 Indeterminate > or = 10 Posit jemma RAC (test code = Performing RAC) Organization Information: Site ID: IG Name: [facility] Address: [address] [place] [id number] Director: Dr. Canelo PoeistSmit [id number] 12:53:00 Test Item Value Reference Range Interpretation Comments Vazquez antibody <1.0 NEG See_Comment [Automated (test code = message] The 22956-[employer] system which generated this result transmit justino reference range : <1.0 NEG AI. Th e reference range was not used to interpret this result as normal/abnormal . RAC (test code = Performing RAC) Organization Information: Site ID: IG Name: [facility] Address: [address] [place] [phone] Director: Dr. Canelo Dumas MethodistAutomated Visual Field, Extended - [id number] 05:47:31Right EyeThreshold was 24-2. Strategy was GERSON. Progression has been stable. Left EyeThreshold was 24-2. Strategy was GERSON. Progression has been stable.Piter OrtegaOCT, Optic Nerve - [id number] 05:47:24Right EyeTemporal progression was stable. Superior progression was stable. Nasal progression was stable. Inferior progression was stable. Left EyeTemporal progression was stable. Superior progression was stable. Nasal progression was stable. Inferior progression was stable.Piter Ortega
--- NOTE | 2020-12-20 22:05 | RAD REPORT ---
EXAM DESCRIPTION: CT - Abdomen Pelvis Wo Contrast - 12/20/2020 9:50 pm CLINICAL HISTORY: Abdominal pain. ABD PAIN COMPARISON: <Comparisons> TECHNIQUE: CT imaging of the abdomen and pelvis was performed without contrast. Solid organ, bowel a nd vascular assessment is limited due to lack of IV and oral contrast. All CT scans are performed using dose optimization technique as appropriate and may include automated exposure control or mA/KV adjustment according to patient size. FINDINGS: The lower lung hunt are clear. The liver, spleen, pancreas, adrenal glands and kidneys are within normal limits for a limited non-co ntrast examination.Cholecystectomy No bowel obstruction, free air, free fluid or abscess. Bilateral adnexal lesions. The right adnexal lesion has a coarse calcification. No macroscopic fat is identified to confirm the presence of a ter atoma. This is of doubtful clinical significance. Atherosclerosis. Hysterectomy. Moderate stool in th e proximal colon. The osseous structures are within normal limits. IMPRESSION: No acute intra-abdominal or pelvic findings. A limited non-contrast examination was performed as detailed.
[2020-12-20 22:40] LABS: Urine Blood Trace-intact (Negative); Urine Glucose Negative (Negative); Urine Protein 1+ (Negative); Urine Specific Gravity 1.025 (1.005-1.030)
[2020-12-20 23:19] LABS: Absolute Lymphocytes (CBC) 2.5 K/uL (0.7-4.9); Basophils % 0.9 % (0-1.3); Hematocrit 38.1 % (36.0-45.0); Lymphocytes % 25.3 % (15.3-44.8); MPV 7.6 fL (7.6-11.3); RBC Red Blood Cell Count 4.17 M/uL (3.86-4.86)
[2020-12-20 23:24] LABS: Urine Specific Gravity/Preg 1.025 (1.005-1.030)
[2020-12-20] MEDS ORDERED: NA CHLORIDE 0.9% 1,000 ML ONE (23:36)
[2020-12-20] MEDS ORDERED: HYDROMORPHONE HCL 1 MG/ML INJ ONE (23:36)
[2020-12-20] MEDS ORDERED: ONDANSETRON 4 MG/2 ML VIAL ONE (23:36)
[2020-12-20] MEDS ORDERED: CEFTRIAXONE/SWI 1gm 1 GM/10 ML SYR ONE (23:37)
[2020-12-20 23:49] LABS: ALT/SGPT 18 U/L (12-78); AST/SGOT 11 U/L (15-37); Albumin 4.4 g/dL (3.4-5.0); Alkaline Phosphatase 84 U/L (45-117); BUN Blood Urea Nitrogen 7 mg/dL (7-18); Bicarbonate 26 mmol/L (21-32); Bilirubin Direct < 0.1 mg/dL (0-0.2); Bilirubin Total 0.3 mg/dL (0.2-1.0); Glucose Level 97 mg/dL (74-106); Lipase 50 U/L (73-393); Potassium 3.8 mmol/L (3.5-5.1); Sodium Level 138 mmol/L (136-145)
[2020-12-21] MEDS ORDERED: MORPHINE 4 MG/ML SYR ONE (00:29)
[2020-12-21] MEDS ORDERED: KETOROLAC 30 MG/ML INJ ONE (01:26)
--- NOTE | 2020-12-21 01:38 | ER ---
Nurse's Notes [facility] Name: Naz Boyle Age: 40 yrs Sex: Female : 1980 Arrival Date: 12/20/2020 Time: 21:15 Bed 15 Private MD: Dakotah Saldana Diagnosis: Acute cystitis without hematuria-with left pyelonephritis Presentation: 12/20 21:29 Chief complaint: Patient states: LLQ abdominal pain and flank pain starting 12/19. kg Painful urination, urgency. Coronavirus screen: Client denies travel out of the [place] in the last 14 days. At this time, unable to obtain information related to travel outside the [place] At this time, the client does not indicate any symptoms associated with coronavirus-19. Ebola Screen: Patient negative for fever greater than or equal to 101.5 degrees Fahrenheit, and additional compatible Ebola Virus Disease symptoms Patient denies exposure to infectious person. Patient denies travel to an Ebola-affected area in the 21 days before illness onset. Initial Sepsis Screen: Does the patient meet any 2 criteria? No. Patient's initial sepsis screen is negative. Does the patient have a suspected source of infection? No. Patient's initial sepsis screen is negative. Risk Assessment: Do you want to hurt yourself or someone else? Patient reports no desire to harm self or others. Onset of symptoms was December 19, 2020. 21:29 Method Of Arrival: Wheelchair kg 21:29 Acuity: MIGUEL 3 kg Triage Assessment: 21:31 General: Appears in no apparent distress. Behavior is calm, cooperative, appropriate kg for age, quiet. Pain: Complains of pain in left lower quadrant. GI: Reports nausea. : Reports burning with urination, inability to void, pain urgency, urinary frequency. 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 - Social history:: Smoking status: Patient reports the use of cigarette tobacco products, smokes one-half pack cigarettes per day, Reported history of juuling and/or vaping. Patient uses. - Family history:: not pertinent. Screenin:34 Abuse screen: Denies threats or abuse. Denies injuries from another. Nutritional kg screening: No deficits noted. Tuberculosis screening: No symptoms or risk factors identified. Fall Risk None identified. No fall in past 12 months (0 pts). No secondary diagnosis (0 pts). IV access (20 points). Ambulatory Aid- None/Bed Rest/Nurse Assist (0 pts). Gait- Normal/Bed Rest/Wheelchair (0 pts) Mental Status- Oriented to own ability (0 pts). Total Chirinos Fall Scale indicates No Risk (0-24 pts). Assessment: 23:00 General: Appears in no apparent distress. uncomfortable, Behavior is calm, cooperative, jb4 appropriate for age. Pain: Complains of pain in posterior aspect of left lateral abdomen Pain does not radiate. Pain currently is 10 out of 10 on a pain scale. Quality of pain is described as stabbing. Neuro: Level of Consciousness is awake, alert, obeys commands, Oriented to person, place, time, situation. Cardiovascular: Patient's skin is warm and dry. Respiratory: Airway is patent Respiratory effort is even, unlabored, Respiratory pattern is regular, symmetrical. GI:. GI: Abdomen is flat, non-distended, Reports. : Reports pain in left flank(s). EENT: No signs and/or symptoms were reported regarding the EENT system. Derm: Skin is intact, Skin is pink, warm \T\ dry. Musculoskeletal: Circulation, motion, and sensation intact. Range of motion: intact in all extremities. 12/21 00:00 Reassessment: Patient appears in no apparent distress at this time. Patient and/or jb4 family updated on plan of care and expected duration. Pain level reassessed. Patient is alert, oriented x 3, equal unlabored respirations, skin warm/dry/pink. 00:45 Reassessment: Patient appears in no apparent distress at this time. Patient and/or jb4 family updated on plan of care and expected duration. Pain level reassessed. Patient is alert, oriented x 3, equal unlabored respirations, skin warm/dry/pink. 01:46 Reassessment: Patient appears in no apparent distress at this time. Patient and/or jb4 family updated on plan of care and expected duration. Pain level reassessed. Patient is alert, oriented x 3, equal unlabored respirations, skin warm/dry/pink. Vital Signs: 12/20 21:29 BP 115 / 90; Pulse 87; Resp 20; Temp 98.1(TE); Pulse Ox 100% on R/A; Weight 92.99 kg kg (R); Height 5 ft. 11 in. (180.34 cm); Pain 10/10; 23:00 BP 123 / 96; Pulse 82; Resp 19; Pulse Ox 100% on R/A; jb4 12/21 00:00 BP 110 / 64; Pulse 68; Resp 18; Pulse Ox 98% on R/A; jb4 01:00 BP 124 / 90; Pulse 66; Resp 16; Pulse Ox 96% on R/A; jb4 12/20 21:29 Body Mass Index 28.59 (92.99 kg, 180.34 cm) kg ED Course: 12/20 21:15 Patient arrived in ED. es 21:16 Dakotah Saldana DO is Private Physician. es 21:31 Triage completed. kg 21:34 Patient has correct armband on for positive identification. kg 21:35 No provider procedures requiring assistance completed. kg 21:50 CT Abd/Pelvis - Without Contrast In Process Unspecified. EDMS 22:56 Dafne Ramirez MD is Attending Physician. ma2 23:00 Jairo Raya, LIZZY is Primary Nurse. [facility] 23:00 Initial lab(s) drawn, by [facility], sent to lab. Inserted saline lock: 18 gauge in right jb4 antecubital area, using aseptic technique. Blood collected. 12/21 01:46 IV discontinued, intact, bleeding controlled, No redness/swelling at site. Pressure jb4 dressing applied. Administered Medications: 12/20 23:20 Drug: NS 0.9% 1000 ml Route: IV; Rate: 1 bolus; Site: right antecubital; [facility] 23:20 Drug: Zofran (Ondansetron) 4 mg Route: IVP; Site: right antecubital; [facility] 12/21 00:15 Follow up: Response: No adverse reaction [facility] 12/20 23:22 Drug: Dilaudid (HYDROmorphone) 1 mg Route: IVP; Site: right antecubital; jb4 23:35 Follow up: Response: No adverse reaction; Marked relief of symptoms; Pain is decreased; jb4 RASS: Alert and Calm (0) 23:23 Drug: Rocephin (cefTRIAXone) 1 grams Route: IV; Rate: calculated rate; Site: right jb4 antecubital; 23:26 Follow up: IV Status: Completed infusion; IV Intake: 10ml jb4 12/21 00:15 Follow up: Response: No adverse reaction jb4 00:13 Drug: morphine 4 mg Route: IVP; Site: right antecubital; jb4 01:49 Follow up: Response: No adverse reaction; Marked relief of symptoms; Pain is decreased jb4 01:08 Drug: Ketorolac 30 mg Route: IVP; Site: right antecubital; jb4 01:52 Follow up: Response: No adverse reaction; Marked relief of symptoms; Pain is decreased jb4 Intake: 12/20 23:26 IV: 10ml; Total: 10ml. jb4 Outcome: 12/21 01:38 Discharge ordered by . ma2 01:46 Discharged to home via wheelchair, with family. jb4 01:46 Condition: stable 01:46 Discharge instructions given to patient, family, Instructed on discharge instructions, follow up and referral plans. medication usage, Demonstrated understanding of instructions, follow-up care, medications, Prescriptions given X 3. 01:52 Patient left the ED. jb4 Signatures: Dispatcher [employer] Angy Fulton James, RN RN jb4 Dafne Ramirez MD MD ma2 Graham, Kristen, RN RN kg
--- NOTE | 2020-12-21 01:38 | EDPHYS ---
Physician Documentation [facility] Name: Naz Boyle Age: 40 yrs Sex: Female : 1980 Arrival Date: 12/20/2020 Time: 21:15 Bed 15 Private MD: [facility] ED Physician Dafne Ramirez HPI: 12/20 23:04 This 40 yrs old Female presents to ER via Wheelchair with complaints of ma2 Abdominal Pain, Flank Pain. 23:04 The patient complains of pain in the left low back. Associated signs and symptoms: ma2 Pertinent positives: dysuria, Pertinent negatives: urinary frequency, headache, pain radiating to the lower extremities, vomiting. Severity of pain: At its worst the pain was moderate in the emergency department the pain is unchanged. The patient has not experienced similar symptoms in the past. 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 - Social history:: Smoking status: Patient reports the use of cigarette tobacco products, smokes one-half pack cigarettes per day, Reported history of juuling and/or vaping. Patient uses. - Family history:: not pertinent. ROS: 23:04 Constitutional: Negative for fever, chills, and weight loss. ma2 23:04 All other systems are negative. Exam: 23:04 Constitutional: This is a well developed, well nourished patient who is awake, alert, ma2 and in no acute distress. Head/Face: Normocephalic, atraumatic. Eyes: Pupils equal round and reactive to light, extra-ocular motions intact. Lids and lashes normal. Conjunctiva and sclera are non-icteric and not injected. Cornea within normal limits. Periorbital areas with no swelling, redness, or edema. ENT: Nares patent. No nasal discharge, no septal abnormalities noted. Tympanic membranes are normal and external auditory canals are clear. Oropharynx with no redness, swelling, or masses, exudates, or evidence of obstruction, uvula midline. Mucous membranes moist. Neck: Trachea midline, no thyromegaly or masses palpated, and no cervical lymphadenopathy. Supple, full range of motion without nuchal rigidity, or vertebral point tenderness. No Meningismus. Chest/axilla: Normal chest wall appearance and motion. Nontender with no deformity. No lesions are appreciated. Cardiovascular: Regular rate and rhythm with a normal S1 and S2. No gallops, murmurs, or rubs. Normal PMI, no JVD. No pulse deficits. Respiratory: Lungs have equal breath sounds bilaterally, clear to auscultation and percussion. No rales, rhonchi or wheezes noted. No increased work of breathing, no retractions or nasal flaring. Abdomen/GI: Soft, non-tender, with normal bowel sounds. No distension or tympany. No guarding or rebound. No evidence of tenderness throughout. Back: No spinal tenderness. has left cva ttp, otherwise No right costovertebral tenderness. Full range of motion. Skin: Warm, dry with normal turgor. Normal color with no rashes, no lesions, and no evidence of cellulitis. MS/ Extremity: Pulses equal, no cyanosis. Neurovascular intact. Full, normal range of motion. Neuro: Awake and alert, GCS 15, oriented to person, place, time, and situation. Cranial nerves II-XII grossly intact. Motor strength 5/5 in all extremities. Sensory grossly intact. Cerebellar exam normal. Normal gait. Vital Signs: 21:29 BP 115 / 90; Pulse 87; Resp 20; Temp 98.1(TE); Pulse Ox 100% on R/A; Weight 92.99 kg kg (R); Height 5 ft. 11 in. (180.34 cm); Pain 10/10; 23:00 BP 123 / 96; Pulse 82; Resp 19; Pulse Ox 100% on R/A; jb4 12/21 00:00 BP 110 / 64; Pulse 68; Resp 18; Pulse Ox 98% on R/A; jb4 01:00 BP 124 / 90; Pulse 66; Resp 16; Pulse Ox 96% on R/A; jb4 12/20 21:29 Body Mass Index 28.59 (92.99 kg, 180.34 cm) kg MDM: 12/20 23:01 Patient medically screened. id2 23:04 Differential diagnosis: nephrolithiasis, pyelonephritis, UTI, pancreatitis. [facility] 12/21 01:10 Data reviewed: vital signs, nurses notes. Counseling: I had a detailed discussion with ma2 the patient and/or guardian regarding: the historical points, exam findings, and any diagnostic results supporting the discharge/admit diagnosis, the presence of at least one elevated blood pressure reading (>120/80) during this emergency department visit. 12/20 21:36 Order name: Basic Metabolic Panel; Complete Time: 23:57 kg 12/20 21:36 Order name: CBC with Diff; Complete Time: 23:44 kg 12/20 21:36 Order name: Hepatic Function; Complete Time: 23:57 kg 12/20 21:36 Order name: Lipase; Complete Time: 23:57 kg 12/20 22:39 Order name: Urine Dipstick-Ancillary; Complete Time: 22:56 EDMS 12/20 22:46 Order name: Urine --Ancillary (enter results) tt3 12/20 21:36 Order name: CT Abd/Pelvis - Without Contrast; Complete Time: 22:56 kg 12/20 22:46 Order name: Urine --Ancillary; Complete Time: 23:44 EDMS 12/20 21:36 Order name: IV Saline Lock; Complete Time: 23:10 kg 12/20 21:36 Order name: Labs collected and sent; Complete Time: 23:10 kg Administered Medications: 12/20 23:20 Drug: NS 0.9% 1000 ml Route: IV; Rate: 1 bolus; Site: right antecubital; [facility] 23:20 Drug: Zofran (Ondansetron) 4 mg Route: IVP; Site: right antecubital; [facility] 12/21 00:15 Follow up: Response: No adverse reaction [facility] 12/20 23:22 Drug: Dilaudid (HYDROmorphone) 1 mg Route: IVP; Site: right antecubital; [facility] 23:35 Follow up: Response: No adverse reaction; Marked relief of symptoms; Pain is decreased; [facility] RASS: Alert and Calm (0) 23:23 Drug: Rocephin (cefTRIAXone) 1 grams Route: IV; Rate: calculated rate; Site: right [facility] antecubital; 23:26 Follow up: IV Status: Completed infusion; IV Intake: 10ml jb4 12/21 00:15 Follow up: Response: No adverse reaction jb4 00:13 Drug: morphine 4 mg Route: IVP; Site: right antecubital; jb4 01:49 Follow up: Response: No adverse reaction; Marked relief of symptoms; Pain is decreased jb4 01:08 Drug: Ketorolac 30 mg Route: IVP; Site: right antecubital; jb4 01:52 Follow up: Response: No adverse reaction; Marked relief of symptoms; Pain is decreased jb4 Disposition Summary: 12/21/20 01:38 Discharge Ordered Location: Home ma2 Condition: Stable ma2 Diagnosis - Acute cystitis without hematuria - with left pyelonephritis ma2 Followup: ma2 - With: Private Physician - When: Today - Reason: Continuance of care Discharge Instructions: - Discharge Summary Sheet ma2 - Urinary Tract Infection, Adult ma2 Forms: - Medication Reconciliation Form ma2 - Thank You Letter ma2 - Antibiotic Education ma2 - Prescription Opioid Use ma2 Prescriptions: - Zofran 4 mg Oral Tablet - take 1 tablet by ORAL route every 12 hours As needed; 20 tablet; Refills: 0, ma2 Product Selection Permitted - Diclofenac Sodium 75 mg Oral Tablet Sustained Release - take 1 tablet by ORAL route 2 times per day; 30 tablet; Refills: 0, Product ma2 Selection Permitted - Bactrim DS 800-160 mg Oral Tablet - take 1 tablet by ORAL route every 12 hours for 7 days; 14 tablet; Refills: 0, ma2 Product Selection Permitted Signatures: Dispatcher [employer] Jairo Allison, RN RN jb4 Dafne Ramirez MD MD ma2 Nohemi Gary RN RN kg
[2020-12-21 18:12] VITALS: TEMP 98.1
[2020-12-21 18:18] VITALS: BP 124/90; O2SAT 96
== END 2020-12-21 01:52 | disposition home or self-care (01) ==
LOC: ER 21:12
DX: N30.00 Acute cystitis without hematuria (principal); F17.210 Nicotine dependence, cigarettes, uncomplicated
CPT/HCPCS: 85025; 80048; 36415; 81025; 80076; 81003; 83690; 74176; 96375; 96374; 99284; J1170; J0696; J7030; J2405

== ENCOUNTER 2021-05-01 15:12 | Inpatient (IN) | payer BC ==
--- OUTSIDE RECORDS SUMMARY | 2021-05-01 15:16 | XMS REPORT | Continuity of Care Document ---
:[address] [facility] t Address [address] [place] [address] Care Team Providers Name Role Phone LIZET Attending Clinician Unavailable Akiko Raymond Attending Clinician Payers Payer Name Policy Type Policy Number Effective Date Expiration Date S ource Problems Condition Condition Condition Status Onset Resolution Last Treating Co mments Source Name Details Category Date Date Treatment Clinician Date No known No known Disease Unive rs active active ity of problems problems [facility] Allergies, Adverse Reactions, Alerts Allergy Allergy Status Severity Reaction(s) Onset Inactive Treating Comm ents Source Name Type Date Date Clinician NO KNOWN Drug Active Univers ALLERGIE Class ity of S [facility] Social History Social Habit Start Date Stop Date Quantity Comments Source Sex Assigned At Uni versity [facility] Exposure to SARS-CoV-2 Not sure [facility] [place] (event) [facility] Smoking Status Start Date Stop Date Source Unknown if ever smoked Universit y [facility] Medications Ordered Filled Start Stop Current Ordering Indication Dosage Frequency Signature Comments Components Source Medication Medication Date Date Medication? Clinician (SIG) Name Name amoxicillin 2020- No 1{tbl} 1 tablet, Univers -clavulanat 05-31 Oral, ONCE i ty of e 05:00: 04:02 NOW, 1 [place] (AUGMENTIN) 00 :00 dose, Tue Med ical 875-125 mg 05/30/20 at Bran ch per tablet 2300, 1 tablet Routine
Reason for Anti-Infec tive: Documented Infection< br>Documen justino Infection Site: Respirator y
Durat ion of Therapy: Other (see Comments) ketorolac No 15mg 15 mg[facility]31 Slow IV ity of injection 03:30: 02:26 Push, [place] 15 mg 00 :00 ONCE, 1 Medical dose, [facility] 05/30/20 at 2130, EVANS
Fa culty member approving Restricted medication : ZOE NAVAS hydrOXYzine 2020- No 25mg 25 mg, Uni vers (ATARAX) 05-31 Oral, ity of tablet 25 03:30: 02:26 [place]CE[place] mg 00 :00 dose, [facility] 05/30/20 at Branch 2130, EVANS famotidine 2020- No 20mg 20 mg, Univ ers (PEPCID 05-31 Slow IV ity of (PF)) 03:30: 02:26 Push, [place] injection 00 :00 ONCE, 1 Medical 20 mg dose, [facility] 05/30/20 at 2130, EVANS iohexol 2020- No 100mL 100 mL, [facility] (OMNIPAQUE 05-31 Intravenou it y of 350 01:45: 01:37 s, ONCE, 1 [place] BULK-150 00 :00 dose, [facility] Medica l mL) 05/30/20 at Branch injection 1944, 100 mL Routine butalbital- 2020- No 1{tbl} 1 tablet, Univers acetaminoph 05-31 Oral, ONCE i ty of en-caff 01:45: 00:52 NOW, 1 [place] (ESGIC) 00 :00 dose, [facility] 50-325-40 05/30/20 at [facility] h mg tablet 1 1944, tablet Routine diphenhydrA No 50mg 50 mg, Uni vers MINE 05-31 Slow IV ity of (BENADRYL) 00:15: 00:52 Push, [place] injection 00 :00 ONCE, 1 Medical 50 mg dose, [facility] 05/30/20 at 1815, STAT methylPREDN 2020- No 40mg 40 mg, IV Univers ISolone sod 05-31 Piggyback, i ty of succ 00:15: 00:52 ONCE, 1 [place] (SOLU-MEDRO 00 :00 dose, Tue Med ical L (PF)) 05/30/20 at Branch injection 1815, STAT 40 mg NaCl 0.9% 2020- No 1000mL at 999 Uni vers (NS) bolus 05-30 mL/hr, ity of infusion 23:15: 02:15 1,000 mL, [place] as 1,000 mL 00 :00 IV Medical Infusion, Branch ONCE, 1 dose, 05/30/20 at 1715, EVANS albuterol Yes [id number] 2{puff} Inhale 2 Univers 90 1-05 Puffs ity of mcg/actuati 00:00: every 4 [place] as on inhaler 00 (four) Medical hours as Branch needed for Wheezing or Shortness of Breath. hydrOXYzine Yes [id number] 25mg Take 1 Univers 25 mg 1-05 tablet by ity of tablet 00:00: mouth [place] 00 every 6 Medical (six) Branch hours as needed for Itching. amoxicillin 2020- No [id number] 1{tbl} Take 1 Univers -clavulanat 05-30 tablet by it y of e 875-125 00:00: 05:59 mouth [place] mg per 00 :00 every 12 Medical tablet (twelve) Branch hours for 7 days. proMETHazin 2012-05 Yes 12.5mg Take 0.5 Univers e 0-06 Tabs by ity of (PHENERGAN) 00:00: mouth [place] 25 mg 00 every 6 Medical tablet (six) Branch hours as needed for Nausea and Vomiting (N/V). HYDROcodone 2012-05 Yes 1{tbl} Take 1 Tab Univers -acetaminop 0-06 by mouth ity of hen (NORCO 00:00: every 4 [place] 5) 5-325 mg 00 (four) Medica l tablet hours as Branch needed for Pain (scale 4-6). Vital Signs Vital Name Observation Time Observation Value Comments Source Systolic blood 2020-05-31 03:01:00 105 mm[Hg] Univer sity of pressure [facility] Diastolic blood 2020-05-31 03:01:00 71 mm[Hg] Unive rsity of pressure [place] [facility] Heart rate 2020-05-31 03:01:00 73 /min [facility] [place] [facility] Body temperature 2020-05-31 03:01:00 36.56 Yanet Univ ersity of [facility] Respiratory rate 2020-05-31 03:01:00 18 /min Univ ersity of [facility] Oxygen saturation in 2020-05-31 03:01:00 98 /min University of Arterial blood by [facility] Pulse oximetry Branch Body height 2020-05-30 21:27:00 180.3 cm [facility] [place] [facility] Body weight 2020-05-30 21:27:00 92.987 kg Universi ty of [facility] BMI 2020-05-30 21:27:00 28.59 kg/m2 Universi ty [facility] Systolic blood 2020-05-31 03:01:00 105 mm[Hg] Univer sity of pressure [facility] Diastolic blood 2020-05-31 03:01:00 71 mm[Hg] Unive rsity of pressure [facility] Heart rate 2020-05-31 03:01:00 73 /min [facility] [place] [facility] [place] Body temperature 2020-05-31 03:01:00 36.56 [facility] [facility] Respiratory rate 2020-05-31 03:01:00 18 /min [facility] [place] [facility] Oxygen saturation in 2020-05-31 03:01:00 98 /min University of Arterial blood by [facility] Pulse oximetry Branch Body height 2020-05-30 21:27:00 180.3 cm [facility] [place] [facility] Body weight 2020-05-30 21:27:[address] [facility] BMI 2020-05-30 21:27:00 28.59 kg/m2 Universi ty [facility] Procedures Procedure Date / Time Performed Performing Clinician Sourc e URINALYSIS 2020-05-31 03:43:00 [facility]oe [facility]as [facility] CHEST PULMONARY 2020-05-31 01:43:20 Zoe Navas [facility] ANGIOGRAM Medical Branch POCT TEST 2020-05-31 01:29:00 Zoe Navas [facility] Branch COVID-19 (ID NOW RAPID 2020-05-31 00:53:00 Zoe Navas [facility] TESTING) Medical Branch XR CHEST 1 VW 2020-05-31 00:09:22 Zoe Navas [facility] TROPONIN I 2020-05-31 00:03:00 Zoe [facility]as [facility] COMP. METABOLIC PANEL 2020-05-31 00:03:00 Zoe Navas [facility] ([id number]) Medical Branch CBC WITH DIFF 2020-05-31 00:03:00 Zoe [facility] D-DIMER 2020-05-31 00:03:00 Zoe Navas [facility] NOTICE OF PRIVACY 2020-05-30 21:02:17 Doctor Unassigned, No Univ [facility] PRACTICES Name Medical Branch Encounters Start End Encounter Admission Attending Care Care Encounter Source Date/Time Date/Time Type Type Clinicians Facility Department ID 2020-09-07 2020-09-07 Outpatient DERECK HINDS [facility] [id number] [place] 00:00:00 00:00:[address] 2020-09-07 2020-09-07 Outpatient DERECK HINDS [facility] [id number] [place] 00:00:00 00:00:[address] 2020-09-07 2020-09-07 Outpatient DERECK HINDS [facility] [id number] [place] 00:00:00 00:00:[address] 2020-09-07 2020-09-07 Outpatient LIZETDERECK [facility] [id number] [place] 00:00:00 00:00:[address] 2020-05-30 2020-05-30 [id number] 16:01:00 23:26:00 Zoe Ayala [id number] [place] [id number] [place] [id number] 2020-05-30 2020-05-30 Emergency Charity [facility] [id number] [facility] 16:01:00 23:26:00 Zoe Ayala [id number] i [facility] [id number] [facility] [id number] [facility] 084 Branch 2020-05-30 2020-05-30 Emergency X [facility] ERT [id number] Univers 15:03:00 15:03:[address] [facility] Results Test Description Test Time Test Comments Results Result Comments Source URINALYSIS 2020-05-31 04:33:00 Test Item Value Reference Range Interpretation Comme nts APPEARANCE (test code = Clear Clear 8556367910) COLOR (test code = 3287530985) Yellow Yellow PH (test code = 5391925766) 4.8-8.0 SP GRAVITY (test code = 1.003-1.030 H 6946397358) GLU U QUAL (test code = Normal Normal 2692880584) BLOOD (test code = 6025659377) Negative Negative KETONES (test code = 7724278267) Negative Negative PROTEIN (test code = 2887-8) Negative Negative UROBILIN (test code = 9089639138) Normal Normal BILIRUBIN (test code = Negative Negative 2388545341) NITRITE (test code = 7090027628) Negative Negative LEUK VY (test code = Negative Negative 0135200052) RBC/HPF (test code = 3049378918) See_Comment [Automated message] The system which ge nerated this result transmit justino reference range: 0 - 3 HP F. The reference range was not used to interpret th is result as normal/abnormal . WBC/HPF (test code = 4016049266) <1 See_Comment [Automated message] The system which ge nerated this result transmit justino reference range: 0 - 5 HP F. The reference range was not used to interpret th is result as normal/abnormal . BACTERIA (test code = 3703771520) Few Negative A SQ EPITH (test code = 1311506149) <1 HPF Lab Interpretation (test code = Abnormal 01517-5) [facility] [id number] 02:56:04Impression: 1. Patchy ground glass opacities, predominating within the lower lobes. Anatypical infectious process cannot be excluded. The appearance is nottypical for COVID-19 infection, although this cannot be excluded.2. Negative for pulmonary embolus.3. Mildly enlarged subcarinal lymph node, nonspecific in appearance.4. Cholecystectomy. RL: 460 End of Report Ordering Physician: ZOE NAVAS Clinical history: Pulmonary embolus suspected, with intermediateprobability. Positive d-dimer. Comparison: None Technique: CT angiography of the chest was performed with intravenouscontrast. Axial source images, MPRS, and MIPS were reviewed. Thisexamination was performed according to ALARA principles. Findings: No filling defects are seen within the pulmonary arterial tree to suggestpulmonary embolus. There is no thoracic aortic aneurysm or d issection.Heart size is normal. No pericardial effusion is evident. Patchy groundglass opacities areseen within both lungs, predominating within the lowerlobes. No significant areas of consolidation are evident. No pleuraleffusions are evident. There is no large subcarinal lymph node. No otherintrathoracic lymphadenopathy is apparent. The patient is status postcholecystectomy. There are mild degenerative changes of the spine. No acutebony abnormalities are evident. [facility], Radiant Results Inft User -05/30/2020 8:57 PM CSTOrdering Physician: ZOE ARGUELLESlinical history: Pulmonary embolus suspected, with intermediateprobability. Positive d-dimer.Comparison: NoneTechnique: CT angiography of the chest was performed with intravenouscontrast. Axial source images, MPRS, and MIPS were reviewed. Thisex amination was performed according to ALARA principles.Findings:No filling defects are seen within the pulmonary arterial tree to suggestpulmonary embolus. There is no thoracic aortic aneurysm or dissection.Heart size is normal. No pericardial effusion is evident. Patchy groundglass opacities are seen within both lungs, predominating within the lowerlobes. No significant areas of consolidation are evident. No pleuraleffusions are evident. There is no large subcarinal lymph node. No otherintrathoraciclymphadenopathy is apparent. The patient is status postcholecystectomy. There are mild degenerative changes of the spine. No acutebony abnormalities are evident.IMPRESSIONImpression:1. Patchy ground glass opacities, predominating within the lower lobes. Anatypical infectious process cannot be excluded. The appearance is nottypical for COVID-19 infection, although this cannot be excluded.2. Negative for pulmonary embolus.3. Mildly enlarged subcarinal lymph node, nonspecific in appearance.4. Cholecyste ctomy.RL: 460End of Report [facility] 1 [id number] 02:20:50Impression: No acute abnormalities evident. RL: 460 End of Report Ordering Physician: LOVELY NAVAS History: ?Short of breath Technique:Chest, single view Comparison: None Findings: ? The lungs are clear. No pleural effusions are evident. Heart size isnormal. The superior mediastinal silhouette is unremarkable for age andprojection. Surgical clips are seen within the right upper quadrant of theabdomen. No acute bony abnormalities areevident. [facility], Radiant Results Inft User - 05/30/2020 8:21 PM CSTOrdering Physician: ZOE NAVASHistory: Short of breathTechnique: Chest, single viewComparison: NoneFindings: The lungs are clear. No pleural effusions are evident. Heart size isnormal. The superior mediastinal silhouette is unremarkable for age andprojection. Surgical clips are seen within the right upper quadrant of theabdomen. No acute bony abnormalities are evident.IMPRESSIONImpression:No acute abnormalities evident.RL: 460End of Report [facility] CenterPO[facility] [id number] 01:29:00 Test Item Value Reference Range Interpretation Comments POCT PREG (test code = Hysterectomy HX of Hysterectomy 1605) Lab Interpretation Normal (test code = 10507-9) [facility] NOW RAPID TESTING)2020-05-31 01:23:00 Test Item Value Reference Range Interpretation Comments SARS-CoV-2 Rapid ID NOW Not Detected Not Detected (test code = 19488-3) JASMEET (test code = JASMEET) ID NOW COVID-19 Assay is an isothermal nucleic acid amplification test intended for the qualitative detection of nucleic acid from SARS-CoV-2 viral RNA in nasopharyngeal (TENTERING MACHINE OFF BEARER) specimens. It is used under Emergency Use Authorization (EUA) by FDA. The limit of detection (LOD) of the assay is 125 Genome Equivalents/mL. A positive result is indicative of the presence of SARS-CoV-2 RNA. ?Clinical correlation with patient history and other diagnostic [...] for repeat patient testing if clinically indicated. Lab Interpretation Normal (test code = 53188-0) [facility] [id number] 00:41:00 Test Item Value Reference Range Interpretation Comments TROPONIN I (test <0.012 See_Comment [Automated code = 8715081910) message] The system which generated this result transmitted reference range : <=0.034 ng/mL. The reference range was not used to interpr et this result as normal/abnormal . JASMEET (test code = Equal or Less than JASMEET) 0.034 ng/ml---Normal ?Note: Cardiac troponin begins to rise 3-4 hours after the onset of ischemia. Repeat in 4-6 hours if the sample was drawn within 3-4 hours of the onset of the symptom and found normal. Between 0.035 and 0.120 ng/mL--- Borderline. Questionable myocardial injury or necrosis ? ?Note: Serial measurement may be necessary to confirm or exclude the diagnosis of myocardial injury or necrosis; Clinical correlation (symptoms, EKGs, imaging studies, and others) required; Repeat in 4-6 hours if clinically indicated. ? Equal or Higher than 0.121 ng/mL---Abnormal. Myocardial Injury or Necrosis Likely ? Biotin has been reported to cause a negative bias, interpret results relative to patient's use of biotin. ? Lab Interpretation Normal (test code = 07352-2) [facility] (11443)2020-05-31 00:32:00 Test Item Value Reference Range Interpretation Comments NA (test code = 138 mmol/L 135-145 9636940995) K (test code = 4.0 mmol/L 3.5-5 2478443781) CL (test code = 101 mmol/L 98-108 5236157464) CO2 TOTAL (test code = 27 mmol/L 23-31 6147925847) AGAP (test code = 2-16 0688228630) BUN (test code = 5 mg/dL 7-23 L 6296728886) GLUCOSE (test code = 136 mg/dL 70-110 H 7806687044) CREATININE (test code = 0.56 mg/dL 0.5-1.04 7828960910) TOTAL BILI (test code = 0.4 mg/dL 0.1-1.2 4062915890) CALCIUM (test code = 9.0 mg/dL 8.6-10.6 0353364719) T PROTEIN (test code = 8.3 g/dL 6.3-8.2 H 4790085263) ALBUMIN (test code = 4.6 g/dL 3.5-5 1190046965) ALK PHOS (test code = 93 U/L 34-122 9791041852) ALTv (test code = 21 U/L 5-35 1742-6) AST(SGOT) (test code = 25 U/L 13-40 8967003054) eGFR Calculation mL/min/1.73m2 (Non-) (test code = 8835774837) eGFR Calculation mL/min/1.73m2 () (test code = 5890823877) JASMEET (test code = JASMEET) Association of Glomerular Filtration Rate (GFR) and Staging of Kidney Disease* + --+ --+ ------+| GFR (mL/min/1.73 m2) ?| With Kidney Damage ?| ?Without Kidney Damage+ --------+ --------+ +| ?>90 ?| ?Stage one ?| ? Normal ?+ ---+ ---+ -------+| ?60-89 ?| ?Stage two ?| ? Decreased GFR ? + --+ --+ ------+| ?30-59 ?| ?Stage three ?| ? Stage three ? + --+ --+ ------+| ?15-29 ?| ?Stage four ? | ? Stage four ?+ ---+ ---+ -------+| ?<15 (or dialysis) ? ?| ?Stage five ? | ? Stage five ?+ ---+ ---+ -------+ *Each stage assumes the associated GFR level has been in effect for at least three months. ?Stages 1 to 5, with or without kidney disease, indicate chronic kidney disease. Notes: Determination of stages one and two (with eGFR >59mL/min/1.73 m2) requires estimation of kidney damage for at least three months as defined by structural or functional abnormalities of the kidney, manifested by either:Pathological abnormalities or Markers of kidney damage (including abnormalities in the composition of the blood or urine or abnormalities in imaging tests). Lab Interpretation Abnormal (test code = 49650-1) [facility]-[id number] 00:30:00 Test Item Value Reference Interpretation Comments Range D-DIMER (test code = See_Comment H [Autom ated 5130956307) message] The system which generated this result transmitted reference range : <0.41 ?g/mL (FEU). The reference range was not used to interpret this result as normal/abnormal . JASMEET (test code = This test may be JASMEET) used in conjunction with a clinical pretest probability (PTP) assessment model to exclude venous thromboembolism (VTE) in patients suspected of deep venous thrombosis (DVT) and pulmonary embolism (PE) A D-Dimer value less than 0.50 ?g/ml (FEU) has a negative predicative value of [...] the clinical context, in forming a diagnosis. Lab Interpretation Abnormal (test code = 33965-7) [facility] WITH [id number] 00:13:00 Test Item Value Reference Range Interpretation Comments WBC (test code = See_Comment H [Automated 6690-2) message] The system which generated this result transmit justino reference range : 4.30 - 11.10 10*3/?L. The reference range was not used to interpret this result as normal/abnormal . RBC (test code = See_Comment [Automated 789-8) message] The system which generated this result transmit justino reference range : 3.93 - 5.25 10*6/?L. The reference range was not used to interpret this result as normal/abnormal . HGB (test code = 13.0 g/dL 11.6-15 718-7) HCT (test code = 39.7 % 35.7-45.2 4544-3) MCV (test code = 91.5 fL 80.6-95.5 787-2) MCH (test code = 30.0 pg 25.9-32.8 785-6) MCHC (test code = 32.7 g/dL 31.6-35.1 786-4) RDW-SD (test code = 40.5 fL 39-49.9 92314-4) RDW-CV (test code = 12.2 % 12-15.5 788-0) PLT (test code = See_Comment [Automated 777-3) message] The system which generated this result transmit justino reference range : 166 - 358 10*3/ ?L. The reference range was not u sed to interpret th is result as normal/abnormal . MPV (test code = 9.4 fL 9.5-12.9 L 27985-3) NRBC/100 WBC (test See_Comment [Automat ed code = 6976299285) message] The system which generated this result transmit justino reference range : 0.0 - 10.0 /100 WBCs. The reference range was not used to interpret this result as normal/abnormal . NRBC x10^3 (test code <0.01 See_Comment [Auto mated = 4686857748) message] The system which generated this result transmit justino reference range : 10*3/?L. The reference range was not used to interpret this result as normal/abnormal . GRAN MAT (NEUT) % 93.5 % (test code = 770-8) IMM GRAN % (test code 0.80 % = 0880533544) LYMPH % (test code = 4.8 % 736-9) MONO % (test code = 0.6 % 5905-5) EOS % (test code = 0.1 % 713-8) BASO % (test code = 0.2 % 706-2) GRAN MAT x10^3(ANC) 13.73 10*3/uL 1.88-7.09 H (test code = 6038833246) IMM GRAN x10^3 (test 0.12 10*3/uL 0-0.06 H code = 2763692314) LYMPH x10^3 (test code 0.71 10*3/uL 1.32-3.29 L = 731-0) MONO x10^3 (test code 0.09 10*3/uL 0.33-0.92 L = 742-7) EOS x10^3 (test code = <0.03 0.03-0.39 L 711-2) BASO x10^3 (test code 0.03 10*3/uL 0.01-0.07 = 704-7) Lab Interpretation Abnormal (test code = 22886-0) [facility]
--- NOTE | 2021-05-01 16:02 | RAD REPORT ---
EXAM DESCRIPTION: Amarilis Single View05/01/2021 3:56 pm CLINICAL HISTORY: CVA COMPARISON: May 2020 FINDINGS: The lungs appear clear of acute infiltrate. The heart is normal size IMPRESSION: No acute abnormalities displayed
[2021-05-01 16:04] LABS: Absolute Lymphocytes (CBC) 2.9 K/uL (0.7-4.9); Basophils % 0.3 % (0-1.3); Hematocrit 36.9 % (36.0-45.0); Lymphocytes % 25.8 % (15.3-44.8); MPV 8.1 fL (7.6-11.3); RBC Red Blood Cell Count 4.18 M/uL (3.86-4.86)
[2021-05-01 16:08] LABS: Protime INR 1.03
[2021-05-01 16:12] LABS: BUN Blood Urea Nitrogen 6 mg/dL (7-18); Bicarbonate 29 mmol/L (21-32); Glucose Level 89 mg/dL (74-106); Magnesium 2.2 mg/dL (1.8-2.4); Potassium 3.7 mmol/L (3.5-5.1); Sodium Level 140 mmol/L (136-145); Troponin (Emerg Dept Use Only) < 0.02 ng/mL (0.0-0.045)
--- NOTE | 2021-05-01 16:13 | RAD REPORT ---
EXAM DESCRIPTION: CT - Ct Stroke Brain Wo Cont - 05/01/2021 4:03 pm CLINICAL HISTORY: APHASIA COMPARISON: 2019 TECHNIQUE: Computed axial tomography of the head was obtained. All CT scans are performed using dose optimization technique as appropriate and may include automated exposure control or mA/KV adjustment according to patient size. FINDINGS: An intracranial bleed is not seen . The ventricles are normal in caliber. No extra-axial fluid collection is noted. Fluid within the sinuses/ mastoids is not seen. IMPRESSION: No acute intracranial abnormality is seen. If patient's symptoms persist MRI of the bra in would be recommended. Doctor Sanchez of the emergency room was notified at 4:07 p.m. May 01, 2021
[2021-05-01] MEDS ORDERED: ALTEPLASE 100 ML IV ONE (16:25)
--- NOTE | 2021-05-01 18:29 | RAD REPORT ---
EXAM DESCRIPTION: Zain Angio05/01/2021 6:00 pm CLINICAL HISTORY: Numbness COMPARISON: None TECHNIQUE: 50 cc Isovue 370 was administered intravenously. 3D MIP reconstruction performed All CT scans are performed using dose optimization technique as appropriate and may include automated exposure control or mA/KV adjustment according to patient size. FINDINGS: Common carotid, internal carotid and external carotid arteries bilaterally are normal adry manish. No plaque noted. No aneurysm. The vertebral arteries are codominant without abnormality. No dissection noted IMPRESSION: Unremarkable exam NASCET criteria used. Mild 0-49% stenosis Moderate 50-69% stenosis Severe 70-99% stenosis
--- NOTE | 2021-05-01 18:34 | RAD REPORT ---
EXAM DESCRIPTION: CTHead angio05/01/2021 6:00 pm CLINICAL HISTORY: TIA COMPARISON: None TECHNIQUE: CT angiogram of the head was obtained. 3D MIPS reconstruction performed. All CT scans are performed using dose optimization technique as appropriate and may include automated exposure control or mA/KV adjustment according to patient size. FINDINGS: The basilar, internal carotid, anterior cerebral, middle cerebral and posterior cerebral a rteries are normal caliber. An aneurysm is not seen. A significant stenosis is not noted. IMPRESSION: Unremarkable CT angiogram head.
--- NOTE | 2021-05-01 18:36 | EDPHYS ---
Physician Documentation [facility] Name: Naz Boyle Age: 41 yrs Sex: Female : 1980 Arrival Date: 05/01/2021 Time: 15:13 Bed 26 Private MD: BRYSON Physician Pramod Sanchez HPI: 05/01 15:37 This 41 yrs old Female presents to ER via Wheelchair with complaints of S/S of Possible jr8 Stroke. 15:37 Onset: The symptoms/episode began/occurred acutely, today, Last known normal was at jr8 1300. Context: occurred at home. The symptoms are alleviated by nothing. The symptoms are aggravated by nothing. Associated signs and symptoms: The patient has no apparent associated signs or symptoms. Severity of symptoms: At their worst the symptoms were moderate in the emergency department the symptoms are unchanged. Patient's baseline: Neuro: alert and fully oriented, Motor: right-sided weakness, left-sided weakness, Ambulation: unable to walk, uses wheelchair, Speech: normal. The patient has experienced similar episodes in the past, several times. The patient has not recently seen a physician. Has been a patient stated that patient has been suffering from migraines for the past month or so. Has been on several different medications but has been out. Today went to go take a nap around 1300. His son stated that he went to get his mom up to ask a question and could not. At that time he went in there and found her to be minimally responsive saying that she could not move her right arm very well. stated that she has several deficits from previous strokes but normally can move both of her arms.. Historical: - Home Meds: 18:53 trazodone 150 mg Oral tab [Active]; levothyroxine 175 mcg tab 1 tab once daily iw [Active]; aspirin 81 mg Oral TbEC 1 tab once daily [Active]; Crestor 10 mg oral tab 1 tab once daily [Active]; Linzess 240 oral cap once daily [Active]; midodrine 2.5 mg oral tab 1 tab 3 times per day [Active]; Vimpat 50 mg oral tab 1 tab 2 times per day [Active]; Keppra 1500 mg Oral 2 times per day [Active]; gabapentin 100 mg oral tab every 6 hours [Active]; Ubrelvy 50 mg oral tab as needed [Active]; Topamax 25 mg Oral tab as needed [Active]; hydroxychloroquine 200 mg oral tab 1 tab once daily [Active]; - PMHx: 15:27 BRADYCARDIA; CVA; Hypercholesterolemia; hypotension; Hypothyroidism; Lupus; Migraine; ld1 PERIPHERAL NEUROPATHY; Rheumatoid Arthritis; RLS; Seizure; Seizures; - PSHx: 15:27 Appendectomy; carpal tunnel luis miguel hands; Cholecystectomy; Total abdominal hysterectomy; ld1 - Immunization history:: Adult Immunizations. - Social history:: Smoking status: Patient denies any tobacco usage or history of. ROS: 15:37 Eyes: Negative for injury, pain, redness, and discharge, ENT: Negative for injury, jr8 pain, and discharge, Neck: Negative for injury, pain, and swelling, Cardiovascular: Negative for chest pain, palpitations, and edema, Respiratory: Negative for shortness of breath, cough, wheezing, and pleuritic chest pain, Abdomen/GI: Negative for abdominal pain, nausea, vomiting, diarrhea, and constipation, Back: Negative for injury and pain, MS/Extremity: Negative for injury and deformity, Skin: Negative for injury, rash, and discoloration. 15:37 Neuro: Positive for altered mental status, headache, weakness. Exam: 16:20 Radiologist reports: No acute findings jr8 16:20 Eyes: Pupils equal round and reactive to light, extra-ocular motions intact. Lids and lashes normal. Conjunctiva and sclera are non-icteric and not injected. Cornea within normal limits. Periorbital areas with no swelling, redness, or edema. ENT: Nares patent. No nasal discharge, no septal abnormalities noted. Tympanic membranes are normal and external auditory canals are clear. Oropharynx with no redness, swelling, or masses, exudates, or evidence of obstruction, uvula midline. Mucous membranes moist. Neck: Trachea midline, no thyromegaly or masses palpated, and no cervical lymphadenopathy. Supple, full range of motion without nuchal rigidity, or vertebral point tenderness. No Meningismus. Cardiovascular: Regular rate and rhythm with a normal S1 and S2. No gallops, murmurs, or rubs. Normal PMI, no JVD. No pulse deficits. Respiratory: Lungs have equal breath sounds bilaterally, clear to auscultation and percussion. No rales, rhonchi or wheezes noted. No increased work of breathing, no retractions or nasal flaring. Abdomen/GI: Soft, non-tender, with normal bowel sounds. No distension or tympany. No guarding or rebound. No evidence of tenderness throughout. Skin: Warm, dry with normal turgor. Normal color with no rashes, no lesions, and no evidence of cellulitis. MS/ Extremity: Pulses equal, no cyanosis. Neurovascular intact. 16:20 Neuro: Orientation: to person, place \\T\\ time. Mentation: able to follow commands, slow to respond, Cranial nerves: CN I not tested, CN II- XII are normal as tested, visual hunt are intact. extraocular movements are intact, Facial palsy and sensory deficits are absent. Speech is clear and appropriate. Tongue strength is normal, Motor: right sided deficits, Sensation: numbness, that is moderate, of the right arm, seizure activity, is not displayed by the patient, Abnormal movements: there are no abnormal movements. Vital Signs: 15:25 BP 121 / 81; Pulse 71; Resp 16; Temp 98.7(O); Pulse Ox 98% on R/A; ld1 16:20 Weight 102.06 kg; iw 16:30 BP 105 / 79; Pulse 70; Resp 17; Pulse Ox 100% ; Pain 10/10; jh6 16:45 BP 104 / 70; Pulse 64; Resp 17; Pulse Ox 100% ; Pain 10/10; jh6 17:00 BP 103 / 72; Pulse 67; Resp 17; Pulse Ox 100% ; Pain 10/10; jh6 17:15 BP 95 / 68; Pulse 68; Resp 17; Pulse Ox 99% ; Pain 10/10; jh6 17:30 BP 103 / 65; Pulse 71; Resp 17; Pulse Ox 100% ; Pain 10/10; jh6 17:30 BP 93 / 50; Pulse 69; Resp 16; Pulse Ox 100% ; Pain 10/10; jh6 18:34 BP 111 / 73; Pulse 64; Resp 16; Pulse Ox 100% ; bp NIH Stroke Scale Scores: 15:29 NIHSS Score: 14 jr8 15:30 NIHSS Score: 16 [facility] MDM: 15:22 Patient medically screened. jr8 16:19 ED course: Discussed with family that there is no acute findings on the CT scan. jr8 Patient remains to have deficits of the right side that are drastically more than what she normally has. As such I discussed with the risk versus benefits of TPA. Family and patient agree that they want her to have it at this time. This was also discussed with our neurologist who agrees that she is a TPA candidate at this time.. 18:10 Data reviewed: vital signs, nurses notes, lab test result(s), EKG, radiologic studies, jr CT scan, plain films. Data interpreted: Pulse oximetry: on room air is 100 %. Interpretation: normal. Counseling: I had a detailed discussion with the patient and/or guardian regarding: the historical points, exam findings, and any diagnostic results supporting the discharge/admit diagnosis, lab results, radiology results, the need for further work-up and treatment in the hospital. 05/01 15:29 Order name: Basic Metabolic Panel; Complete Time: 16:13 8 05/01 15:29 Order name: CBC with Diff; Complete Time: 16:13 [facility] 05/01 15:29 Order name: Magnesium; Complete Time: 16:13 [facility] 05/01 15:29 Order name: Protime (+inr); Complete Time: 16:13 8 05/01 15:29 Order name: Ptt, Activated; Complete Time: 16:13 [facility] 05/01 15:29 Order name: Troponin (emerg Dept Use Only); Complete Time: 16:13 [facility] 05/01 15:29 Order name: CT Stroke Brain w/o Contrast; Complete Time: 16:19 8 05/01 15:58 Order name: Glucose, Ancillary Testing; Complete Time: 16:13 [facility] 05/01 17:51 Order name: SARS-COV-2 RT PCR (Document "Date of Onset" if Symptomatic); Complete Time: iw 23:43 05/02 05:29 Order name: CBC with Automated Diff EDMS 05/02 05:50 Order name: Comprehensive Metabolic Panel EDMS 05/02 05:50 Order name: Lipid Profile EDMS 05/02 05:50 Order name: T4 Free EDMS 05/02 05:50 Order name: Thyroid Stimulating Hormone EDMS 05/01 15:29 Order name: Stroke CXR 1 View; Complete Time: 16:13 8 05/01 15:29 Order name: EKG; Complete Time: 15:30 8 05/01 15:29 Order name: Accucheck; Complete Time: 15:47 jr8 05/01 15:29 Order name: Cardiac monitoring; Complete Time: 15:47 jr8 05/01 16:55 Order name: CT Head Angio; Complete Time: 18:36 jr8 05/01 16:55 Order name: CT Neck Angio; Complete Time: 18:33 jr8 05/02 05:34 Order name: US EDMS 05/02 08:59 Order name: CT EDMS 05/02 12:51 Order name: MRI EDMS 05/02 12:52 Order name: MRI EDMS 05/02 13:01 Order name: MRI EDMS 05/02 18:46 Order name: CT EDMS 05/01 15:29 Order name: IV Saline Lock; Complete Time: 15:47 jr8 05/01 15:29 Order name: Labs collected and sent; Complete Time: 15:47 8 05/01 15:29 Order name: O2 Per Protocol; Complete Time: 15:47 8 05/01 15:29 Order name: O2 Sat Monitoring; Complete Time: 15:47 Administered Medications: 16:30 Drug: Alteplase (Bolus for Stroke) - Activase 0.09 mg/kg {Co-Signature: bp (Danilo Davis RN).} Route: IV Thrombolytics; Infused Over: 1 mins; 18:55 Follow up: Response: No adverse reaction [facility] 16:32 Drug: Alteplase {Co-Signature: bp (Danilo Davis RN).} Route: IV Thrombolytics; Rate: 6 calculated rate; 18:55 Follow up: Response: No adverse reaction [facility] 18:50 Drug: Tylenol 1000 mg Route: PO; [facility] Point of Care Testing: Blood Glucose: 16:12 Blood Glucose: 106 mg/dL; [facility] Ranges: Critical Glucose Levels:Adult <50 mg/dl or >400 mg/dl <40 mg/dl or >180 mg/dl Disposition: 05/02 22:45 Co-signature as Attending Physician, Pramod Sanchez MD I agree with the assessment and anneliese plan of care. Disposition Summary: 05/01/21 18:36 Hospitalization Ordered Hospitalization Status: Inpatient Admission jr8 Condition: Stable jr8 Problem: new jr8 Symptoms: have improved jr8 Bed/Room Type: Standard jr8 Provider: Tanvir Garvey(05/01/21 18:46) la1 Location: Telemetry/MedSurg (Inpatient)(05/02/21 20:17) eb1 Room Assignment: 409(05/02/21 20:17) eb1 Diagnosis - Cerebral infarction, unspecified jr8 Forms: - Medication Reconciliation Form jr8 - SBAR form jr8 NIH Stroke Scale - NIH Stroke Score Date: 05/01/2021 Time: 15:29 Total Score = 14 1a. Level of Consciousness (LOC) - 1(Not Alert) 1b. Level of Consciousness (LOC) (Month \\T\\ Age) - 0(Both) 1c. LOC Commands (Open \\T\\ Closes Eyes/Windshield Installer) - 0(Both) 2. Best Gaze (Lateral Gaze Paresis) - 0(Normal) 3. Visual Field Loss - 0(No visual loss) 4. Facial Palsy - 0(Normal) 5a. Left Arm: Motor (10-second hold) - 2(Drift, some effort against gravity) 5b. Right Arm: Motor (10-second hold) - 4(No movement) 6a. Left Leg: Motor (5-second hold - always test supine) - 2(Drift, some effort against gravity) 6b. Right Leg: Motor (5-second hold - always test supine) - 4(No movement) 7. Limb Ataxia (finger/nose \\T\\ heel/gould - test with eyes open) - 0(Absent) 8. Sensory Loss (pinprick arms/legs/face) - 1(Mild to moderate loss) 9. Best Language: Aphasia (description/naming/reading) - 0(No aphasia) 10. Dysarthria (speech clarity - read or repeat words) - 0(Normal) 11. Extinction and Inattention (visual/tactile/auditory/spatial/personal) - 0(No abnormality) Initials: jr8 NIH Stroke Scale - NIH Stroke Score Date: 05/01/2021 Time: 15:30 Total Score = 16 1a. Level of Consciousness (LOC) - 0(Alert) 1b. Level of Consciousness (LOC) (Month \\T\\ Age) - 0(Both) 1c. LOC Commands (Open \\T\\ Closes Eyes/Windshield Installer) - 1(One) 2. Best Gaze (Lateral Gaze Paresis) - 0(Normal) 3. Visual Field Loss - 1(Partial hemianopia) 4. Facial Palsy - 0(Normal) 5a. Left Arm: Motor (10-second hold) - 2(Drift, some effort against gravity) 5b. Right Arm: Motor (10-second hold) - 3(No effort against gravity) 6a. Left Leg: Motor (5-second hold - always test supine) - 2(Drift, some effort against gravity) 6b. Right Leg: Motor (5-second hold - always test supine) - 3(No effort against gravity) 7. Limb Ataxia (finger/nose \\T\\ heel/gould - test with eyes open) - 2(Present in two limbs) 8. Sensory Loss (pinprick arms/legs/face) - 1(Mild to moderate loss) 9. Best Language: Aphasia (description/naming/reading) - 0(No aphasia) 10. Dysarthria (speech clarity - read or repeat words) - 1(Mild to Moderate) 11. Extinction and Inattention (visual/tactile/auditory/spatial/personal) - 0(No abnormality) Initials: [facility] Signatures: Dispatcher [employer] EDMS Yue Calix RN Pramod Arteaga MD MD cha Williams, Irene, RN Vicente Pedroza PA PA jr8 Lance Hernandez, OCCUPATIONAL THERAPY INSTRUCTOR-C OCCUPATIONAL THERAPY INSTRUCTOR-Cla1 Vanessa Boykin RN RN eb1 Princess Adam RN RN ld1 Radha Rizzo RN RN 6 Danilo Davis RN bp Corrections: (The following items were deleted from the chart) 05/01 18:46 18:36 Jomar Hawkins jr8 la1 20:00 18:36 Intensive Care Unit jr8 mw 20:00 18:36 jr8 mw 05/02 20:17 12 20:00 [facility] ER HOLD mw eb1 05/02 20:17 05/01 20:00 ERHOLD- mw eb1
--- NOTE | 2021-05-01 18:36 | ER ---
Nurse's Notes [facility] Name: Naz Boyle Age: 41 yrs Sex: Female : 1980 Arrival Date: 05/01/2021 Time: 15:13 Bed 26 Private MD: Diagnosis: Cerebral infarction, unspecified Presentation: 05/01 15:25 Chief complaint: Parent and/or Guardian states: I think my is having a stroke, she ld1 has had three previous strokes. Today she began c/o a headache and she took a nap and woke up altered. Pt last known normal was 1330 today. Coronavirus screen: At this time, the client does not indicate any symptoms associated with coronavirus-19. Ebola Screen: No symptoms or risks identified at this time. An acute neurological deficit is present. Initial Sepsis Screen: Does the patient meet any 2 criteria? No. Patient's initial sepsis screen is negative. Does the patient have a suspected source of infection? No. Patient's initial sepsis screen is negative. Risk Assessment: Do you want to hurt yourself or someone else? Patient reports no desire to harm self or others. Onset of symptoms was May 01, 2021. 15:25 Method Of Arrival: Wheelchair ld1 15:25 Acuity: MIGUEL 2 ld1 18:47 Pre-hospital glucose is not applicable to this patient. [facility] Triage Assessment: 15:27 The onset of the patients symptoms was May 01, 2021 at 13:30. General: Appears in ld1 no apparent distress. Behavior is cooperative, drowsy. Pain: Unable to use pain scale. Patient is disoriented. EENT: No signs and/or symptoms were reported regarding the EENT system. Neuro: Level of Consciousness is awake, confused, Oriented to none Reports headache. Cardiovascular: Capillary refill < 3 seconds Patient's skin is warm and dry. Respiratory: Airway is patent Respiratory effort is even, unlabored, Respiratory pattern is regular, symmetrical. GI: Abdomen is flat, non-distended. : No signs and/or symptoms were reported regarding the genitourinary system. Derm: No signs and/or symptoms reported regarding the dermatologic system. Musculoskeletal: No signs and/or symptoms reported regarding the musculoskeletal system. Stroke Activation: Symptom onset < 3 hours Physician: Stroke Attending; Name: ; Notified At: ; Arrived At: Physician: Chief Stroke Resident; Name: ; Notified At: ; Arrived At: Physician: Stroke Resident; Name: ; Notified At: ; Arrived At: Physician: ED Attending; Name: ; Notified At: ; Arrived At: Physician: ED Resident; Name: ; Notified At: ; Arrived At: Historical: - Home Meds: 18:53 trazodone 150 mg Oral tab [Active]; levothyroxine 175 mcg tab 1 tab once daily iw [Active]; aspirin 81 mg Oral TbEC 1 tab once daily [Active]; Crestor 10 mg oral tab 1 tab once daily [Active]; Linzess 240 oral cap once daily [Active]; midodrine 2.5 mg oral tab 1 tab 3 times per day [Active]; Vimpat 50 mg oral tab 1 tab 2 times per day [Active]; Keppra 1500 mg Oral 2 times per day [Active]; gabapentin 100 mg oral tab every 6 hours [Active]; Ubrelvy 50 mg oral tab as needed [Active]; Topamax 25 mg Oral tab as needed [Active]; hydroxychloroquine 200 mg oral tab 1 tab once daily [Active]; - PMHx: 15:27 BRADYCARDIA; CVA; Hypercholesterolemia; hypotension; Hypothyroidism; Lupus; Migraine; ld1 PERIPHERAL NEUROPATHY; Rheumatoid Arthritis; RLS; Seizure; Seizures; - PSHx: 15:27 Appendectomy; carpal tunnel luis miguel hands; Cholecystectomy; Total abdominal hysterectomy; ld1 - Immunization history:: Adult Immunizations. - Social history:: Smoking status: Patient denies any tobacco usage or history of. Screenin:09 Abuse screen: Denies threats or abuse. Nutritional screening: No deficits noted. jh6 Tuberculosis screening: No symptoms or risk factors identified. Fall Risk Secondary diagnosis (15 points). Assessment: 15:30 VAN Scoring: Arm Drift: Severe drift. The patient is alert, and able to follow 6 commands. The patient does not exhibit slurred or garbled speech. The patient is exhibiting difficulty speaking. Provider notified of the indication for Speech Therapy consult. The patient does not exhibit difficulty understanding words. The patient is able to swallow own secretions with no drooling or need for suction. 16:03 General: Appears obese, Pt appears awake but drowsy. able to answer questions but with jh6 some delay and difficulty. spouse states that she has hx of strokes and seizures and has been off all her meds x 2-3wks. states that she was last seen normal \\T\\ 1230 and stated that she was going to lay down due to increased bravo.. Pain: Complains of pain in face and scalp Pain currently is 10 out of 10 on a pain scale. Quality of pain is described as dull, throbbing, Pain began chronic bravo. Neuro: Level of Consciousness is obeys commands, Oriented to person, Machine Sewer are weak on right Weakness in right Speech is slurred, Facial symmetry appears normal, Pupils are PERRLA, decreased sensation to rt arm. 16:15 T-PA (Activase) Screening: Indications: Definite evidence of stroke, ischemic, embolic, jh6 or hypertensive: Yes. Treatment will start within 4.5 hours onset of symptoms: Yes. No evidence of intracranial hemorrhage or CT of head and no evidence of peripheral hemorrhage or recent CVA: Yes. Consent for thrombolytic therapy: Yes. Contraindications:. 17:13 Reassessment: Patient and/or family updated on plan of care and expected duration. Pain jh6 level reassessed. Pt states that she has an increased feeling to rt arm. Pt able to move fingers and move hand off of bed but not able to moved forearm unable to hold arm up against gravity. Family at bedside all clothing removed and in gown. Patient states symptoms have improved. 17:41 Reassessment: Patient is alert, oriented x 3, equal unlabored respirations, skin jh6 warm/dry/pink. TPA completed, pt states that she has = feeling to face and increased sensation to rt chest and rt arm. Pt able to production control specialist fingers but has weak strength, when asked to sqeeze. Pt able to move all fingers on rt hand and able to picker feeder hand but not fa off the bed, Pt also reports improed sensation to l arm. able to hold arm up for 10 sec and production control specialist strength has increased. strength and sensations to lt leg back to "'normal" per pt. Patient states symptoms have improved. 18:00 Reassessment: No changes from previously documented assessment. Patient is alert, jh6 oriented x 3, equal unlabored respirations, skin warm/dry/pink. Pt states that she thinks that she would be able to swallow water without issue. Provider states that she could have Tylenol if she was able to pass test. Pt states that she would take the Tylenol but that it would probably not help. Pt was also on O2 at 2lpm for comfort and to attempt to help bravo. 18:29 Patient tolerated one teaspoon of water. No drooling, immediate coughing, gurgling, or jh6 clearing of the throat was noted. The patient tolerated 90mL of water. No drooling, immediate coughing, gurgling, or clearing of the throat was noted. The patient passed the bedside swallow screening. Oral medications may be given as ordered. Contact Physician for further diet orders. Provider notified of bedside swallow screening results: Vicente GILL. Vital Signs: 15:25 BP 121 / 81; Pulse 71; Resp 16; Temp 98.7(O); Pulse Ox 98% on R/A; ld1 16:20 Weight 102.06 kg; iw 16:30 BP 105 / 79; Pulse 70; Resp 17; Pulse Ox 100% ; Pain 10/10; jh6 16:45 BP 104 / 70; Pulse 64; Resp 17; Pulse Ox 100% ; Pain 10/10; jh6 17:00 BP 103 / 72; Pulse 67; Resp 17; Pulse Ox 100% ; Pain 10/10; jh6 17:15 BP 95 / 68; Pulse 68; Resp 17; Pulse Ox 99% ; Pain 10/10; jh6 17:30 BP 103 / 65; Pulse 71; Resp 17; Pulse Ox 100% ; Pain 10/10; jh6 17:30 BP 93 / 50; Pulse 69; Resp 16; Pulse Ox 100% ; Pain 10/10; jh6 18:34 BP 111 / 73; Pulse 64; Resp 16; Pulse Ox 100% ; bp Vitals: 17:30 Cardiac Rhythm Assessment Regular Sinus rhythm. 6 NIH Stroke Scale Scores: 15:29 NIHSS Score: 14 jr8 15:30 NIHSS Score: 16 [facility] ED Course: 15:13 Patient arrived in ED. mr 15:22 [facility] Ireland [facility] jr8 15:22 Pramod Sanchez MD is Attending Physician. jr8 15:27 Triage completed. ld1 15:27 Arm band placed on right wrist. ld1 15:38 Initial lab(s) drawn, by ED staff, sent to lab. 6 15:38 Inserted saline lock: 20 gauge 22 gauge in right wrist, using aseptic technique. jh6 15:[address] jh6 15:57 Stroke CXR 1 View In Process Unspecified. EDMS 16:00 Radha Rizzo, LIZZY is Primary Nurse. jh6 16:04 CT Stroke Brain w/o Contrast In Process Unspecified. EDMS 16:20 Inserted saline lock: 20 gauge in left antecubital area, using aseptic technique. jh6 16:45 Placed in gown. Bed in low position. Call light in reach. Side rails up X2. Adult w/ jh6 patient. 17:[address] jh6 18:01 CT Head Angio In Process Unspecified. EDMS 18:01 CT Neck Angio In Process Unspecified. EDMS 18:15 Awaiting radiology results. Awaiting disposition. jh6 18:35 Jomar Hawkins MD is Hospitalizing Provider. jr8 18:46 Tanvir Garvey DO is Hospitalizing Provider. la1 18:48 No provider procedures requiring assistance completed. jh6 19:06 Report received from radha. tw5 21:14 Report given to Princess ICU Nurse. [facility] Administered Medications: 16:30 Drug: Alteplase (Bolus for Stroke) - Activase 0.09 mg/kg {Co-Signature: bp (Danilo Davis RN).} Route: IV Thrombolytics; Infused Over: 1 mins; 18:55 Follow up: Response: No adverse reaction [facility] 16:32 Drug: Alteplase {Co-Signature: bp (Danilo Davis RN).} Route: IV Thrombolytics; Rate: [facility] calculated rate; 18:55 Follow up: Response: No adverse reaction [facility] 18:50 Drug: Tylenol 1000 mg Route: PO; 6 Point of Care Testing: Blood Glucose: 16:12 Blood Glucose: 106 mg/dL; [facility] Ranges: Outcome: 18:36 Decision to Hospitalize by Provider. jr8 12 22:23 Patient left the ED. bb NIH Stroke Scale - NIH Stroke Score Date: 05/01/2021 Time: 15:29 Total Score = 14 1a. Level of Consciousness (LOC) - 1(Not Alert) 1b. Level of Consciousness (LOC) (Month \\T\\ Age) - 0(Both) 1c. LOC Commands (Open \\T\\ Closes Eyes/Quarrying Manager) - 0(Both) 2. Best Gaze (Lateral Gaze Paresis) - 0(Normal) 3. Visual Field Loss - 0(No visual loss) 4. Facial Palsy - 0(Normal) 5a. Left Arm: Motor (10-second hold) - 2(Drift, some effort against gravity) 5b. Right Arm: Motor (10-second hold) - 4(No movement) 6a. Left Leg: Motor (5-second hold - always test supine) - 2(Drift, some effort against gravity) 6b. Right Leg: Motor (5-second hold - always test supine) - 4(No movement) 7. Limb Ataxia (finger/nose \\T\\ heel/gould - test with eyes open) - 0(Absent) 8. Sensory Loss (pinprick arms/legs/face) - 1(Mild to moderate loss) 9. Best Language: Aphasia (description/naming/reading) - 0(No aphasia) 10. Dysarthria (speech clarity - read or repeat words) - 0(Normal) 11. Extinction and Inattention (visual/tactile/auditory/spatial/personal) - 0(No abnormality) Initials: jr8 NIH Stroke Scale - NIH Stroke Score Date: 05/01/2021 Time: 15:30 Total Score = 16 1a. Level of Consciousness (LOC) - 0(Alert) 1b. Level of Consciousness (LOC) (Month \\T\\ Age) - 0(Both) 1c. LOC Commands (Open \\T\\ Closes Eyes/Quarrying Manager) - 1(One) 2. Best Gaze (Lateral Gaze Paresis) - 0(Normal) 3. Visual Field Loss - 1(Partial hemianopia) 4. Facial Palsy - 0(Normal) 5a. Left Arm: Motor (10-second hold) - 2(Drift, some effort against gravity) 5b. Right Arm: Motor (10-second hold) - 3(No effort against gravity) 6a. Left Leg: Motor (5-second hold - always test supine) - 2(Drift, some effort against gravity) 6b. Right Leg: Motor (5-second hold - always test supine) - 3(No effort against gravity) 7. Limb Ataxia (finger/nose \\T\\ heel/gould - test with eyes open) - 2(Present in two limbs) 8. Sensory Loss (pinprick arms/legs/face) - 1(Mild to moderate loss) 9. Best Language: Aphasia (description/naming/reading) - 0(No aphasia) 10. Dysarthria (speech clarity - read or repeat words) - 1(Mild to Moderate) 11. Extinction and Inattention (visual/tactile/auditory/spatial/personal) - 0(No abnormality) Initials: [facility] Signatures: Dispatcher [employer] BRYSONCaitlin AcevedoHiwot, RN RN Carmina Soto, RN RN Vicente Dimas PA PA 8 Lance Hernandez, SPEECH PROFESSOR-C SPEECH PROFESSOR-Cla1 Danilo Davis, RN RN bp Princess Adam RN RN ld1 Marli Fisher tw5 Radha Rizzo RN RN [facility] Danilo Davis RN bp
[2021-05-01] MEDS ORDERED: ACETAMINOPHEN 500 MG TAB ONE (18:37)
--- NOTE | 2021-05-01 18:46 | P.HP ---
Certification for Inpatient Patient admitted to: Inpatient With expected LOS: >2 Midnights Patient will require the following post-hospital care: None Practitioner: I am a practitioner with admitting privileges, knowledge of patient current condition, hospital course, and medical plan of care. Services: Services provided to patient in accordance with Admission requirements found in Title 42 Section 412.3 of the Code of Federal Regulations Patient History Date of Service: 05/01/21 Primary Care Provider: Dr. Saldana, Dr. Morton Reason for admission: RUE weakness History of Present Illness: 41-year-old female with history of previous CVA, migraines, seizure disorder, lupus, rheumatoid arthritis, hypothyroidism, restless leg syndrome presents emergency department for right-sided weakness. Patient with baseline paresis of left lower extremity with weakness of the right lower extremity and bilateral upper extremities, patient took a nap last seen well around 1300 and after waking up was having difficulty with speech, confused and had right upper extremity paresis. Patient without any known seizure activity prior to onset of symptoms, case was discussed with neurology while patient was in the emergency department who determined that patient is a candidate for TPA. Patient received TPA while in the emergency department. CT head brain without contrast negative for any acute findings, CT head and neck angiogram is negative for acute findings chest x-ray no acute abnormalities displayed labs were unremarkable. Patient at baseline has to use a wheelchair given previous CVAs and weakness of the lower extremities. Emergency department provider wishes to admit for further evaluation and management of new onset right upper extremity weakness status post TPA infusion Allergies No Known Allergies Allergy (Unverified 01/10/20 14:53) Home Medications: Gabapentin 2 tab PO BID 01/10/20 Levothyroxine Sodium [Synthroid] 1 tab PO DAILY 01/10/20 Lubiprostone [Amitiza*] 1 tab PO BID 01/10/20 Midodrine HCl 2.5 mg PO TID 01/10/20 Ranitidine HCl [Zantac 75] 1 tab PO PRN PRN 01/10/20 Rosuvastatin Calcium [Crestor] 1 tab PO DAILY 01/10/20 levETIRAcetam [Keppra*] 1,500 mg PO BID 01/10/20 Lacosamide [Vimpat] 50 mg PO BID 01/11/20 Trazodone [Desyrel*] 150 mg PO BEDTIME 01/11/20 Aspirin [Aspirin EC 81 MG] 81 mg PO DAILY #30 tablet. 01/12/20 - Past Medical/Surgical History Diabetic: No -: Seizures -: hypothyroidism -: hypotension -: lupus -: Rheumatoid arthritis -: Restless leg syndrome -: Bradycardia -: CVA -: Appendectomy -: hysterectomy -: -: Carpal tunnel surgery Psychosocial/ Personal History: patient is disabled, lives at home with her - Family History Mother -: Heart disease, Diabetes Brother -: Heart disease, Diabetes, Seizures - Social History Smoking Status: Current every day smoker Counseled patient to stop smoking for: less than 10 minutes Smoking therapy provided: Yes Alcohol use: No CD- Drugs: No Caffeine use: No Place of Residence: Home Review of Systems 10-point ROS is otherwise unremarkable General: Weakness Neurological: Weakness, Change in Speech, Confusion, As per HPI Physical Examination - Physical Exam General: Alert, In no apparent distress, Oriented x3 HEENT: Atraumatic, PERRLA, Mucous membr. moist/pink, EOMI, Sclerae nonicteric Neck: Supple, 2+ carotid pulse no bruit, No LAD, Without JVD or thyroid abnormality Respiratory: Clear to auscultation bilaterally, Normal air movement Cardiovascular: Regular rate/rhythm, Normal S1 S2 Capillary refill: <2 Seconds Gastrointestinal: Normal bowel sounds, No tenderness Musculoskeletal: No tenderness Integumentary: No rashes Neurological: Normal affect, Abnormal speech (Mild expressive aphasia noted), Abnormal strength (2/5 strength right upper extremity, 4/5 strength left upper extremity, 4/5 strength right lower extremity, 1/5 strength left lower extremity) Lymphatics: No axilla or inguinal lymphadenopathy - Studies Laboratory Data (last 24 hrs) 05/01/21 15:42: PT 11.9, INR 1.03, APTT 33.0 05/01/21 15:42: WBC 11.10 H, Hgb 12.1, Hct 36.9, Plt Count 252 05/01/21 15:42: Sodium 140, Potassium 3.7, BUN 6 L, Creatinine 0.88, Glucose 89, Magnesium 2.2 Assessment and Plan - Plan Assessment: New onset right upper extremity weakness, dysphasia S/P TPA infusion History of previous CVA with lower extremity weakness, wheelchair-bound Seizure disorder Migraines Hypothyroidism Hyperlipidemia Rheumatoid arthritis Lupus Restless leg syndrome Plan: New onset right upper extremity weakness, dysphasia S/P TPA infusion: Patient will need to be monitored in the ICU for first 24 hours after TPA infusion will obtain CT without contrast 24 hours after to rule out hemorrhagic conversion of CVA, will obtain MRI stroke protocol in addition to carotid Doppler and echocardiogram. Patient with complex medical history of seizure disorders and migraines, patient reports that she generally has multiple focal or grand mal seizures on a daily basis, has been out of her home medication Vimpat for "a while". Will place seizure precautions and consult neurology for additional assistance. PT/OT/speech therapy consults in place. History of previous CVA with lower extremity weakness, wheelchair-bound: PT/OT/speech therapy consults in place, obtain an continue home medications, will need to hold any aspirin or Plavix for the first 24 hours after TPA. Seizure disorder: Seizure precautions, obtain and restart home medications as appropriate. Migraines: Provide medication as needed Hypothyroidism: Obtain thyroid panel, obtain and continue medications Hyperlipidemia: Obtain lipid panel, obtain and continue medications Rheumatoid arthritis: Obtain and continue home meds Lupus: Obtain and continue home meds Restless leg syndrome: Obtain and continue home meds DVT PPX: None for the first 24 hours after TPA infusion, Lovenox after this. Code status: Full Discharge Plan: Home Plan to discharge in: 48 Hours - Advance Directives Does patient have a Living Will: No Does patient have a Durable POA for Healthcare: No - Code Status/Comfort Care Code Status Assessed: Yes (Full code) Critical Care: No Time Spent Managing Pts Care (In Minutes): 55
[2021-05-01] MEDS ORDERED: ATORVASTATIN 40 MG TAB PO SCH (22:34)
[2021-05-01] MEDS: NICOTINE 14 MG/PAT TD SCH (22:34)
[2021-05-01] MEDS ORDERED: ONDANSETRON 4 MG/2 ML VIAL IV PRN (22:34)
[2021-05-02 04:02] VITALS: BMI 31.4
[2021-05-02 05:10] LABS: Absolute Lymphocytes (CBC) 2.7 K/uL (0.7-4.9); Basophils % 0.5 % (0-1.3); Hematocrit 34.6 % (36.0-45.0); Lymphocytes % 29.3 % (15.3-44.8); RBC Red Blood Cell Count 3.96 M/uL (3.86-4.86)
--- NOTE | 2021-05-02 05:34 | RAD REPORT ---
EXAM DESCRIPTION: USCarotid Artery [id number]/7/2021 11:37 pm CLINICAL HISTORY: Right extremity weakness COMPARISON: CTA neck May 01, 2021 FINDINGS: The velocity of the right internal carotid artery equals 84 cm/sec. The right ICA/CCA rati o 1.3 The velocity of the left internal carotid artery equals 74 cm/sec. The left ICA/CCA ratio 1.1 Plaque is not visualized within the carotid arteries. The vertebral arteries demonstrate antegrade flow IMPRESSION: Unremarkable exam NASCET criteria used. Mild 0-49% stenosis Moderate 50-69% stenosis Severe 70-99% stenosis
[2021-05-02 05:42] LABS: Albumin 3.3 g/dL (3.4-5.0); Bilirubin Total 0.3 mg/dL (0.2-1.0); Potassium 3.6 mmol/L (3.5-5.1); Protein, Total 7.2 g/dL (6.4-8.2)
[2021-05-02 05:50] LABS: Thyroid Stimulating Hormone 14.6 uIU/mL (0.360-3.740)
--- NOTE | 2021-05-02 06:25 | P.PN ---
Subjective Date of Service: 05/02/21 Primary Care Provider: Dr. Saldana, Dr. Morton Chief Complaint: RUE weakness Subjective: Improving Physical Examination - Vital Signs Temperature: 98.7 F Blood Pressure: 103/71 Pulse: 62 Respirations: 15 Pulse Ox (%): 100 - Studies Laboratory Data (last 24 hrs) 05/01/21 15:42: PT 11.9, INR 1.03, APTT 33.0 05/01/21 15:42: WBC 11.10 H, Hgb 12.1, Hct 36.9, Plt Count 252 05/01/21 15:42: Sodium 140, Potassium 3.7, BUN 6 L, Creatinine 0.88, Glucose 89, Magnesium 2.2 Assessment & Plan Discharge Plan: Other Plan to discharge in: 48 Hours Physician Review Additional Text: COVID: CT head: COMPARISON: 2019 TECHNIQUE: Computed axial tomography of the head was obtained. All CT scans are performed using dose optimization technique as appropriate and may include automated exposure control or mA/KV adjustment according to patient size. FINDINGS: An intracranial bleed is not seen . The ventricles are normal in caliber. No extra-axial fluid collection is noted. Fluid within the sinuses/ mastoids is not seen. IMPRESSION: No acute intracranial abnormality is seen. CTA Head: COMPARISON: None TECHNIQUE: CT angiogram of the head was obtained. 3D MIPS reconstruction performed. All CT scans are performed using dose optimization technique as appropriate and may include automated exposure control or mA/KV adjustment according to patient size. FINDINGS: The basilar, internal carotid, anterior cerebral, middle cerebral and posterior cerebral arteries are normal caliber. An aneurysm is not seen. A significant stenosis is not noted. IMPRESSION: Unremarkable CT angiogram head. CTA Neck: COMPARISON: None TECHNIQUE: 50 cc Isovue 370 was administered intravenously. 3D MIP reconstruction performed All CT scans are performed using dose optimization technique as appropriate and may include automated exposure control or mA/KV adjustment according to patient size. FINDINGS: Common carotid, internal carotid and external carotid arteries bilaterally are normal caliber. No plaque noted. No aneurysm. The vertebral arteries are codominant without abnormality. No dissection noted IMPRESSION: Unremarkable exam MRI Brain: COMPARISON: MRA Head Wo Cont dated 05/02/2021; Brain W/Wo Cont dated 01/10/2020; MRA Head Wo Cont dated 01/10/2020; Brain Wo Cont dated 05/28/2019 TECHNIQUE: Sagittal T1-weighted images were obtained along with PD/heavily T2- weighted and T2-FLAIR images. Axial DWI and ADC mapping sequences were also obtained along with coronal heavily T2-weighted images were obtained. Contrast was administered. FINDINGS: No intracranial hemorrhage, mass or acute infarction. There is no edema or shift of midline structures. No extra-axial fluid collections. Signal voids are seen as a normal finding in the major intracranial vessels. No significant white matter disease. Mastoid air cells and paranasal sinuses are clear. IMPRESSION: No acute intracranial abnormality. No abnormal enhancement or acute infarct. MRA Brain: COMPARISON: Brain W/Wo Cont dated 01/10/2020; MRA Head Wo Cont dated 01/10/2020; Brain Wo Cont dated 05/28/2019 FINDINGS: 3D noncontrast [id number] MR angiography of the [place] was performed. No aneurysm, flow-limiting stenosis or vascular malformation is seen. Forward flow seen in codominant vertebral arteries. The visualized dural venous sinuses appear patent. IMPRESSION: No significant flow abnormality of the [place] is identified. MRA Neck: COMPARISON: MRA Neck W/Wo Cont dated 01/10/2020; Brain W/Wo Cont dated 05/02/2021 FINDINGS: Contrast enhance 2D [id number] MR angiography of the neck vessels was performed. Widely patent bilateral carotid systems and vertebral arteries. IMPRESSION: No flow limiting stenosis within the neck. Carotid doppler: COMPARISON: CTA neck May 01, 2021 FINDINGS: The velocity of the right internal carotid artery equals 84 cm/sec. The right ICA/CCA ratio 1.3 The velocity of the left internal carotid artery equals 74 cm/sec. The left ICA/CCA ratio 1.1 Plaque is not visualized within the carotid arteries. The vertebral arteries demonstrate antegrade flow IMPRESSION: Unremarkable exam Follow up CT scan: COMPARISON: May 01, 2021 TECHNIQUE: Computed axial tomography of the head was obtained. IV contrast was not requested. All CT scans are performed using dose optimization technique as appropriate and may include automated exposure control or mA/KV adjustment according to patient size. FINDINGS: An intracranial bleed is not seen . The ventricles are normal in caliber. No extra-axial fluid collection is noted. Fluid within the sinuses/ mastoids is not seen. IMPRESSION: No acute intracranial abnormality is seen. Physical exam: General: Alert, In no apparent distress, Oriented x3 HEENT: Atraumatic, PERRLA, Mucous membr. moist/pink, EOMI, Sclerae nonicteric Neck: Supple, 2+ carotid pulse no bruit, No LAD, Without JVD or thyroid abnormality Respiratory: Clear to auscultation bilaterally, Normal air movement Cardiovascular: Regular rate/rhythm, Normal S1 S2 Capillary refill: <2 Seconds Gastrointestinal: Normal bowel sounds, No tenderness Musculoskeletal: No tenderness Integumentary: No rashes Neurological: Normal affect, Abnormal speech (Mild expressive aphasia noted), Abnormal strength (2/5 strength right upper extremity, 4/5 strength left upper extremity, 4/5 strength right lower extremity, 1/5 strength left lower extremity) Lymphatics: No axilla or inguinal lymphadenopathy Impression: New onset right upper extremity weakness, dysphasia S/P TPA infusion for suspected CVA with MRI showing no stroke, likely TIA History of previous CVA with lower extremity weakness, wheelchair-bound Seizure disorder Migraines Hypothyroidism Hyperlipidemia Rheumatoid arthritis Lupus Restless leg syndrome Depression with anxiety History of orthostatic hypotension Chronic constipation Plan: New onset right upper extremity weakness, dysphasia S/P TPA infusion for suspected CVA with MRI showing no stroke, likely TIA: So far MRI shows no evidence of stroke. Will repeat CT scan after 24 hours from TPA given to make sure there is no hemorrhagic conversion. Spoke with physical therapy. Patient worked well with physical therapy. Physical therapy recommending inpatient rehab. Will discuss further with neurology. If CT scan unremarkable we will plan to transition to medical floor. We will also likely start aspirin and Plavix if okay with neurology. We will continue with her antiseizure medications. Continue with physical therapy. Speech evaluated patient, patient able to tolerate diet. We will continue with current diet at this time. We will continue to reassess and monitor. History of previous CVA with lower extremity weakness, wheelchair-bound: No evidence of stroke on MRI. Continue with above recommendations. Seizure disorder: Continue with seizure precautions. Continue with her medications including Vimpat 50 mg 1 pill twice daily, Keppra 1500 mg 1 pill twice daily and gabapentin 200 mg 1 pill twice daily.. Migraines: Continue with Topamax 25 mg daily. May use home medication of Ubrelvy 50 mg 4 times a day as needed. If not able to use Ubrelvy then will continue with sumatriptan 25 mg as needed. Hypothyroidism: TSH and free T4 abnormal. Patient previously on 175 mcg of Synthroid. Will need to increase Synthroid to 200 mcg daily. Recommend to recheck TSH and free T4 in 4 to 6 weeks to further monitor and adjust. Hyperlipidemia: Continue with Crestor 10 mg daily. Rheumatoid arthritis: Continue Plaquenil 200 mg daily Lupus: Continue Plaquenil 200 mg daily Restless leg syndrome: We will monitor closely. Depression with anxiety: Patient did report that she is depressed. Patient is not suicidal but has had suicidal thoughts in the past. This was discussed in detail with the patient in detail along with the . Case also discussed with psychiatry. Psychiatry recommends a possibility of adding SSRI to her regimen. Psychiatry recommends outpatient follow-up as the patient will require inpatient rehab. Will discuss with neurology before starting SSRI. Patient already takes trazodone 150 mg at bedtime. History of orthostatic hypotension: Patient will continue with midodrine 2.5 mg 1 pill 3 times a day. Chronic constipation: Patient will continue with Linzess daily DVT PPX: None for the first 24 hours after TPA infusion, Lovenox after this. Code status: Full Discharge Plan: Inpatient rehab Time Spent Managing Pts Care (In Minutes): 55
[2021-05-02] MEDS ORDERED: UBROGEPANT 50 MG PO PRN (07:09)
[2021-05-02] MEDS ORDERED: SUMATRIPTAN SUCCI 50 MG TAB PO PRN (07:10)
[2021-05-02] MEDS ORDERED: LACOSAMIDE 50 MG TABLET ONE ×2 (08:03→19:55)
[2021-05-02] MEDS ORDERED: ACETAMINOPHEN 500 MG TAB ONE (08:04)
[2021-05-02] MEDS ORDERED: levETIRAcetam 500 MG TAB ONE ×2 (08:04→19:55)
[2021-05-02] MEDS ORDERED: FOLIC ACID 1 MG TABLET ONE (08:04)
[2021-05-02] MEDS: LACOSAMIDE 50 MG TABLET PO SCH ×2 (08:08→20:05)
[2021-05-02] MEDS: FOLIC ACID 1 MG TABLET PO SCH (08:08)
[2021-05-02] MEDS: ACETAMINOPHEN 500 MG TAB PO PRN (08:08)
[2021-05-02] MEDS: levETIRAcetam 500 MG TAB PO SCH ×2 (08:08→20:04)
[2021-05-02] MEDS ORDERED: LORazepam 2 MG/ML VIAL IV ONE (08:11)
[2021-05-02] MEDS ORDERED: LORazepam 2 MG/ML VIAL ONE (08:23)
--- NOTE | 2021-05-02 08:59 | RAD REPORT ---
EXAM DESCRIPTION: CT - Head Brain Wo Cont - 05/02/2021 8:40 am CLINICAL HISTORY: Right-sided weakness COMPARISON: May 01, 2021 TECHNIQUE: Computed axial tomography of the head was obtained. IV contrast was not requested. All CT scans are performed using dose optimization technique as appropriate and may include automated exposure control or mA/KV adjustment according to patient size. FINDINGS: An intracranial bleed is not seen . The ventricles are normal in caliber. No extra-axial fluid collection is noted. Fluid within the sinuses/ mastoids is not seen. IMPRESSION: No acute intracranial abnormality is seen. If patient's symptoms persist MRI of the bra in would be recommended.
[2021-05-02] MEDS ORDERED: HOME MED 1 EA UNK (Linaclotide [Linzess] 290 MCG Capsule) PO SCH (09:00)
[2021-05-02] MEDS ORDERED: HOME MED 1 EA UNK (Levothyroxine Sodium [Synthroid] 175 MCG Tablet) PO SCH (09:00)
[2021-05-02] MEDS: TOPIRAMATE 25 MG TAB PO SCH (09:28)
[2021-05-02] MEDS: ROSUVASTATIN 10 MG TAB PO SCH (09:28)
[2021-05-02] MEDS: GABAPENTIN 100 MG CAP PO SCH ×2 (09:28→20:05)
[2021-05-02] MEDS: MIDODRINE HCL 5 MG TABLET PO SCH ×3 (09:28→20:05)
[2021-05-02] MEDS: HYDROXYCHLOROQUINE 200MG TAB PO SCH (09:29)
[2021-05-02] MEDS: NICOTINE 14 MG/PAT TD SCH (09:29)
[2021-05-02] MEDS ORDERED: INFLUENZA VACCINE (for 6+ mo) 0.5 ML DOSE IMVAC ONE (12:00)
--- NOTE | 2021-05-02 12:04 | EKG ---
Test Date: 2021-05-01 Test Time: 15:31:00 Line Department Supervisor: MEASUREMENT RESULTS: Intervals: Rate: 72 AR: 130 QRSD: 80 QT: 422 QTc: 462 Maxwell: P: 47 AR: 130 QRS: 56 T: 21 INTERPRETIVE STATEMENTS: Normal sinus rhythm with sinus arrhythmia Normal ECG Compared to ECG 01/10/2020 10:42:05 Sinus bradycardia no longer present Electronically Signed On 05-02-21 12:02:50 MEDICAL CARE ADMINISTRATOR by Clement Dawson
--- NOTE | 2021-05-02 12:50 | RAD REPORT ---
EXAM DESCRIPTION: MRI - MRA Neck W/Wo Cont - 05/02/2021 12:35 pm CLINICAL HISTORY: RUE weakness COMPARISON: MRA Neck W/Wo Cont dated 01/10/2020; Brain W/Wo Cont dated 05/02/2021 FINDINGS: Contrast enhance 2D [id number] MR angiography of the neck vessels was performed. Widely patent bilateral carotid systems and vertebral arteries. IMPRESSION: No flow limiting stenosis within the neck.
--- NOTE | 2021-05-02 12:51 | RAD REPORT ---
EXAM DESCRIPTION: MRI - MRA Head Wo Cont - 05/02/2021 12:34 pm CLINICAL HISTORY: RUE weakness CVA COMPARISON: Brain W/Wo Cont dated 01/10/2020; MRA Head Wo Cont dated 01/10/2020; Brain Wo Cont dated FINDINGS: 3D noncontrast [id number] MR angiography of the [place] was performed. No aneurysm, flow-limiting stenosis or vascular malformation is seen. Forward flow seen in codominant vertebral arteries. The visualized dural venous sinuses appear patent. IMPRESSION: No significant flow abnormality of the [place] is identified.
--- NOTE | 2021-05-02 13:00 | RAD REPORT ---
EXAM DESCRIPTION: MRI - Brain W/Wo Cont - 05/02/2021 12:35 pm CLINICAL HISTORY: RUE weakness COMPARISON: MRA Head Wo Cont dated 05/02/2021; Brain W/Wo Cont dated 01/10/2020; MRA Head Wo Cont date d 01/10/2020; Brain Wo Cont dated 05/28/2019 TECHNIQUE: Sagittal T1-weighted images were obtained along with PD/heavily T2-weighted and T2-FLAIR images. Axial DWI and ADC mapping sequences were also obtained along with coronal heavily T2-weighted images were obtained. Contrast was administered. FINDINGS: No intracranial hemorrhage, mass or acute infarction. There is no edema or shift of midlin e structures. No extra-axial fluid collections. Signal voids are seen as a normal finding in the doreen r intracranial vessels. No significant white matter disease. Mastoid air cells and paranasal sinuses are clear. IMPRESSION: No acute intracranial abnormality. No abnormal enhancement or acute infarct.
[2021-05-02] MEDS ORDERED: TRAMADOL HCL 50 MG TAB PO PRN (13:16)
[2021-05-02] MEDS: HYDROCODONE/APAP 7.5/325 MG TAB PO PRN (13:21)
--- NOTE | 2021-05-02 18:44 | RAD REPORT ---
EXAM DESCRIPTION: CT - Head Brain Wo Cont - 05/02/2021 6:26 pm CLINICAL HISTORY: Follow up TPA 24 hours ago COMPARISON: Head Brain Wo Cont dated 05/02/2021; Head angio dated 05/01/2021; MRA Head Wo Cont dated 1 07/03/2020; Brain W/Wo Cont dated 05/02/2021 TECHNIQUE: All CT scans are performed using dose optimization technique as appropriate and may inclu de automated exposure control or mA/KV adjustment according to patient size. FINDINGS: No intracranial hemorrhage, hydrocephalus or extra-axial fluid collection.No areas of brai n edema or evidence of midline shift. The paranasal sinuses and mastoids are clear. The calvarium is intact. IMPRESSION: No acute intracranial abnormality.
[2021-05-02] MEDS: TRAZODONE 150 MG TAB PO SCH (20:05)
[2021-05-03 03:51] LABS: Absolute Lymphocytes (CBC) 2.9 K/uL (0.7-4.9); Basophils % 0.7 % (0-1.3); Lymphocytes % 29.4 % (15.3-44.8); MPV 7.9 fL (7.6-11.3); RBC Red Blood Cell Count 3.86 M/uL (3.86-4.86)
[2021-05-03 04:29] LABS: ALT/SGPT 13 U/L (12-78); AST/SGOT 8 U/L (15-37); Alkaline Phosphatase 64 U/L (45-117); BUN Blood Urea Nitrogen 6 mg/dL (7-18); Bicarbonate 27 mmol/L (21-32); Bilirubin Total 0.2 mg/dL (0.2-1.0); Glucose Level 95 mg/dL (74-106); Potassium 3.6 mmol/L (3.5-5.1); Protein, Total 6.9 g/dL (6.4-8.2); Sodium Level 139 mmol/L (136-145)
--- NOTE | 2021-05-03 06:05 | P.PN ---
Subjective Date of Service: 05/03/21 Primary Care Provider: Dr. Saldana, Dr. Morton Chief Complaint: RUE weakness Subjective: Improving, Doing well Physical Examination - Vital Signs Temperature: 97.6 F Blood Pressure: 90/60 Pulse: 67 Respirations: 18 Pulse Ox (%): 95 Assessment & Plan Discharge Plan: Other (Inpatient rehab) Plan to discharge in: 24 Hours Physician Review Additional Text: COVID: CT head: COMPARISON: 2019 TECHNIQUE: Computed axial tomography of the head was obtained. All CT scans are performed using dose optimization technique as appropriate and may include automated exposure control or mA/KV adjustment according to patient size. FINDINGS: An intracranial bleed is not seen . The ventricles are normal in caliber. No extra-axial fluid collection is noted. Fluid within the sinuses/ mastoids is not seen. IMPRESSION: No acute intracranial abnormality is seen. CTA Head: COMPARISON: None TECHNIQUE: CT angiogram of the head was obtained. 3D MIPS reconstruction performed. All CT scans are performed using dose optimization technique as appropriate and may include automated exposure control or mA/KV adjustment according to patient size. FINDINGS: The basilar, internal carotid, anterior cerebral, middle cerebral and posterior cerebral arteries are normal caliber. An aneurysm is not seen. A significant stenosis is not noted. IMPRESSION: Unremarkable CT angiogram head. CTA Neck: COMPARISON: None TECHNIQUE: 50 cc Isovue 370 was administered intravenously. 3D MIP reconstruction performed All CT scans are performed using dose optimization technique as appropriate and may include automated exposure control or mA/KV adjustment according to patient size. FINDINGS: Common carotid, internal carotid and external carotid arteries bilaterally are normal caliber. No plaque noted. No aneurysm. The vertebral arteries are codominant without abnormality. No dissection noted IMPRESSION: Unremarkable exam MRI Brain: COMPARISON: MRA Head Wo Cont dated 05/02/2021; Brain W/Wo Cont dated 01/10/2020; MRA Head Wo Cont dated 01/10/2020; Brain Wo Cont dated 05/28/2019 TECHNIQUE: Sagittal T1-weighted images were obtained along with PD/heavily T2- weighted and T2-FLAIR images. Axial DWI and ADC mapping sequences were also obtained along with coronal heavily T2-weighted images were obtained. Contrast was administered. FINDINGS: No intracranial hemorrhage, mass or acute infarction. There is no edema or shift of midline structures. No extra-axial fluid collections. Signal voids are seen as a normal finding in the major intracranial vessels. No significant white matter disease. Mastoid air cells and paranasal sinuses are clear. IMPRESSION: No acute intracranial abnormality. No abnormal enhancement or acute infarct. MRA Brain: COMPARISON: Brain W/Wo Cont dated 01/10/2020; MRA Head Wo Cont dated 01/10/2020; Brain Wo Cont dated 05/28/2019 FINDINGS: 3D noncontrast [id number] MR angiography of the [place] was performed. No aneurysm, flow-limiting stenosis or vascular malformation is seen. Forward flow seen in codominant vertebral arteries. The visualized dural venous sinuses appear patent. IMPRESSION: No significant flow abnormality of the [place] is identified. MRA Neck: COMPARISON: MRA Neck W/Wo Cont dated 01/10/2020; Brain W/Wo Cont dated 05/02/2021 FINDINGS: Contrast enhance 2D [id number] MR angiography of the neck vessels was performed. Widely patent bilateral carotid systems and vertebral arteries. IMPRESSION: No flow limiting stenosis within the neck. Carotid doppler: COMPARISON: CTA neck May 01, 2021 FINDINGS: The velocity of the right internal carotid artery equals 84 cm/sec. The right ICA/CCA ratio 1.3 The velocity of the left internal carotid artery equals 74 cm/sec. The left ICA/CCA ratio 1.1 Plaque is not visualized within the carotid arteries. The vertebral arteries demonstrate antegrade flow IMPRESSION: Unremarkable exam Follow up CT scan: COMPARISON: May 01, 2021 TECHNIQUE: Computed axial tomography of the head was obtained. IV contrast was not requested. All CT scans are performed using dose optimization technique as appropriate and may include automated exposure control or mA/KV adjustment according to patient size. FINDINGS: An intracranial bleed is not seen . The ventricles are normal in caliber. No extra-axial fluid collection is noted. Fluid within the sinuses/ mastoids is not seen. IMPRESSION: No acute intracranial abnormality is seen. Physical exam: General: Alert, In no apparent distress, Oriented x3 HEENT: Atraumatic, PERRLA, Mucous membr. moist/pink, EOMI, Sclerae nonicteric Neck: Supple, 2+ carotid pulse no bruit, No LAD, Without JVD or thyroid abnormality Respiratory: Clear to auscultation bilaterally, Normal air movement Cardiovascular: Regular rate/rhythm, Normal S1 S2 Capillary refill: <2 Seconds Gastrointestinal: Normal bowel sounds, No tenderness Musculoskeletal: No tenderness Integumentary: No rashes Neurological: Normal affect, Abnormal speech (Mild expressive aphasia noted), Abnormal strength (2/5 strength right upper extremity, 4/5 strength left upper extremity, 4/5 strength right lower extremity, 1/5 strength left lower extremity) Lymphatics: No axilla or inguinal lymphadenopathy Impression: New onset right upper extremity weakness, dysphasia S/P TPA infusion for suspected CVA with MRI showing no stroke, likely TIA History of previous CVA with lower extremity weakness, wheelchair-bound Seizure disorder Migraines Hypothyroidism Hyperlipidemia Rheumatoid arthritis Lupus Restless leg syndrome Depression with anxiety History of orthostatic hypotension Chronic constipation Plan: New onset right upper extremity weakness, dysphasia S/P TPA infusion for suspected CVA with MRI showing no stroke, likely TIA: So far MRI shows no evidence of stroke. Repeat CT scan unremarkable. Will start aspirin and Plavix today. Continue physical therapy, occupational therapy. Await recommendations by them. Will discuss in detail with neurology about plan of care. Patient grayson ires to go to inpatient rehab. Anticipate possible approval for inpatient rehab. History of previous CVA with lower extremity weakness, wheelchair-bound: No evidence of stroke on MRI. Continue with above recommendations. Seizure disorder: Continue with seizure precautions. Continue with her medications including Vimpat 50 mg 1 pill twice daily, Keppra 1500 mg 1 pill twice daily and gabapentin 200 mg 1 pill twice daily. Patient would benefit with inpatient rehab. Await recommendations by neurology, physical therapy/Occupational Therapy.. Migraines: Continue with Topamax 25 mg daily. May use home medication of Ubrelvy 50 mg 4 times a day as needed. If not able to use Ubrelvy then will continue with sumatriptan 25 mg as needed. Hypothyroidism: TSH and free T4 abnormal. Patient previously on 175 mcg of Synthroid. Medication adjusted. Continue Synthroid to 200 mcg daily. Recommen d to recheck TSH and free T4 in 4 to 6 weeks to further monitor and adjust. Hyperlipidemia: Continue with Crestor 10 mg daily. Rheumatoid arthritis: Continue Plaquenil 200 mg daily Lupus: Continue Plaquenil 200 mg daily Restless leg syndrome: We will monitor closely. Depression with anxiety: Patient did report that she is depressed. Patient is not suicidal but has had suicidal thoughts in the past. This was discussed in detail with the patient in detail along with the . Case also discussed with psychiatry. Psychiatry recommends a possibility of adding SSRI to her regimen. Psychiatry recommends outpatient follow-up as the patient will require inpatient rehab. Will discuss with neurology before starting SSRI. Patient already takes trazodone 150 mg at bedtime. History of orthostatic hypotension: Patient will continue with midodrine 2.5 mg 1 pill 3 times a day. Chronic constipation: Patient will continue with Linzess daily DVT PPX: We will discuss with neurology about starting Lovenox for DVT prophylaxis. Code status: Full Discharge Plan: Inpatient rehab Time Spent Managing Pts Care (In Minutes): 55
[2021-05-03] MEDS ORDERED: LEVOTHYROXINE SOD 0.1 MG TAB PO SCH (06:30)
[2021-05-03] MEDS ORDERED: LEVOTHYROXINE SOD 0.075 MG TAB PO SCH (06:30)
[2021-05-03] MEDS: LEVOTHYROXINE SOD 0.1 MG TAB PO SCH (06:38)
[2021-05-03] MEDS ORDERED: POTASSIUM CL SA 10 MEQ TAB PO ONE (09:00)
[2021-05-03] MEDS: Linaclotide [Linzess] 290 MCG Capsule *PT OWN MED PO SCH (09:00)
[2021-05-03] MEDS: HYDROXYCHLOROQUINE 200MG TAB PO SCH (10:12)
[2021-05-03] MEDS: ASPIRIN EC 81 MG TAB PO SCH (10:13)
[2021-05-03] MEDS: NICOTINE 14 MG/PAT TD SCH (10:13)
[2021-05-03] MEDS: ACETAMINOPHEN 500 MG TAB PO PRN (10:14)
[2021-05-03] MEDS: FOLIC ACID 1 MG TABLET PO SCH (10:14)
[2021-05-03] MEDS: levETIRAcetam 500 MG TAB PO SCH ×2 (10:14→21:21)
[2021-05-03] MEDS: ROSUVASTATIN 10 MG TAB PO SCH (10:14)
[2021-05-03] MEDS: MIDODRINE HCL 5 MG TABLET PO SCH ×3 (10:14→21:21)
[2021-05-03] MEDS: GABAPENTIN 100 MG CAP PO SCH ×2 (10:14→21:21)
[2021-05-03] MEDS: LACOSAMIDE 50 MG TABLET PO SCH ×2 (10:15→21:21)
[2021-05-03] MEDS: TOPIRAMATE 25 MG TAB PO SCH (10:15)
[2021-05-03] MEDS: CLOPIDOGREL 75 MG TABLET PO SCH (10:15)
[2021-05-03] MEDS ORDERED: INFLUENZA VACCINE (for 6+ mo) 0.5 ML DOSE IMVAC ONE (12:00)
[2021-05-03] MEDS: HYDROCODONE/APAP 7.5/325 MG TAB PO PRN ×2 (14:02→21:19)
--- NOTE | 2021-05-03 14:23 | ECHO ---
HEIGHT: 5 ft 11 in WEIGHT: 225 lb 0 oz DATE OF STUDY: 05/03/[address]: Lance Hernandez NP 2-DIMENSIONAL: YES M.MODE: YES DOPPLER: YES COLOR FLOW: YES TDS: YES PORTABLE: NO DEFINITY: NO BUBBLE STUDY: NO DIAGNOSIS: RIGHT UPPER EXTREMITY WEAKNESS, POSSIBLE CEREBRAL VASCULAR ACCIDENT CARDIAC HISTORY: CATHERIZATION: NO SURGERY: NO PROSTHETIC VALVE: NO PACEMAKER: NO MEASUREMENTS (cm) DIASTOLIC (NORMALS) SYSTOLIC (NORMALS) IVSd 1.0 (0.6-1.2) LA Diam 3.4 (1.9-4.0) LVEF 55-60% LVIDd 3.8 (3.5-5.7) LVIDs 2.8 (2.0-3.5) %FS 26% LVPWd 1.2 (0.6-1.2) Ao Diam 2.8 (2.0-3.7) 2 DIMENSIONAL ASSESSMENT: RIGHT ATRIUM: NORMAL LEFT ATRIUM: NORMAL RIGHT VENTRICLE: NORMAL LEFT VENTRICLE: NORMAL TRICUSPID VALVE: NORMAL MITRAL VALVE: MILD MITRAL REGURGITATION PULMONIC VALVE: NORMAL AORTIC VALVE: NORMAL PERICARDIAL EFFUSION: NONE AORTIC ROOT: NORMAL LEFT VENTRICULAR WALL MOTION: NORMAL. DOPPLER/COLOR FLOW: SEE BELOW. COMMENTS: NORMAL LEFT VENTRICULAR EJECTION FRACTION 55-60%. NORMAL WALL MOTION. MILD MITRAL REGURGITATION. NEEDS BUBBLE STUDY. TECHNOLOGIST: PATITO FERNANDO
[2021-05-03] MEDS: TRAZODONE 150 MG TAB PO SCH (21:00)
[2021-05-03] MEDS ORDERED: TRAZODONE 50 MG TABLET ONE (21:11)
[2021-05-04 04:20] LABS: Absolute Lymphocytes (CBC) 3.1 K/uL (0.7-4.9); Basophils % 0.4 % (0-1.3); Hematocrit 33.1 % (36.0-45.0); Lymphocytes % 39.5 % (15.3-44.8); RBC Red Blood Cell Count 3.73 M/uL (3.86-4.86)
[2021-05-04 04:42] LABS: Bilirubin Total 0.2 mg/dL (0.2-1.0); Potassium 3.6 mmol/L (3.5-5.1); Protein, Total 6.7 g/dL (6.4-8.2)
--- NOTE | 2021-05-04 06:06 | P.PN ---
Subjective Date of Service: 05/04/21 Primary Care Provider: Dr. Saldana, Dr. Morton Chief Complaint: RUE weakness Subjective: Improving Physical Examination - Vital Signs Temperature: 96.8 F Blood Pressure: 91/60 Pulse: 64 Respirations: 16 Pulse Ox (%): 97 Assessment & Plan Discharge Plan: Other (Inpatient rehab) Plan to discharge in: 24 Hours Physician Review Additional Text: COVID: Negative CT head: COMPARISON: 2019 TECHNIQUE: Computed axial tomography of the head was obtained. All CT scans are performed using dose optimization technique as appropriate and may include automated exposure control or mA/KV adjustment according to patient size. FINDINGS: An intracranial bleed is not seen . The ventricles are normal in caliber. No extra-axial fluid collection is noted. Fluid within the sinuses/ mastoids is not seen. IMPRESSION: No acute intracranial abnormality is seen. CTA Head: COMPARISON: None TECHNIQUE: CT angiogram of the head was obtained. 3D MIPS reconstruction performed. All CT scans are performed using dose optimization technique as appropriate and may include automated exposure control or mA/KV adjustment according to patient size. FINDINGS: The basilar, internal carotid, anterior cerebral, middle cerebral and posterior cerebral arteries are normal caliber. An aneurysm is not seen. A significant stenosis is not noted. IMPRESSION: Unremarkable CT angiogram head. CTA Neck: COMPARISON: None TECHNIQUE: 50 cc Isovue 370 was administered intravenously. 3D MIP rec onstruction performed All CT scans are performed using dose optimization technique as appropriate and may include automated exposure control or mA/KV adjustment according to patient size. FINDINGS: Common carotid, internal carotid and external carotid arteries bilaterally are normal caliber. No plaque noted. No aneurysm. The vertebral arteries are codominant without abnormality. No dissection noted IMPRESSION: Unremarkable exam MRI Brain: COMPARISON: MRA Head Wo Cont dated 05/02/2021; Brain W/Wo Cont dated 01/10/2020; MRA Head Wo Cont dated 01/10/2020; Brain Wo Cont dated 05/28/2019 TECHNIQUE: Sagittal T1-weighted images were obtained along with PD/heavily T2- weighted and T2-FLAIR images. Axial DWI and ADC mapping sequences were also obtained along with coronal heavily T2-weighted images were obtained. Contrast was administered. FINDINGS: No intracranial hemorrhage, mass or acute infarction. There is no edema or shift of midline structures. No extra-axial fluid collections. Signal voids are seen as a normal finding in the major intracranial vessels. No significant white matter disease. Mastoid air cells and paranasal sinuses are clear. IMPRESSION: No acute intracranial abnormality. No abnormal enhancement or acute infarct. MRA Brain: COMPARISON: Brain W/Wo Cont dated 01/10/2020; MRA Head Wo Cont dated 01/10/2020; Brain Wo Cont dated 05/28/2019 FINDINGS: 3D noncontrast [id number] MR angiography of the [place] was performed. No aneurysm, flow-limiting stenosis or vascular malformation is seen. Forward f low seen in codominant vertebral arteries. The visualized dural venous sinuses appear patent. IMPRESSION: No significant flow abnormality of the [place] is identified. MRA Neck: COMPARISON: MRA Neck W/Wo Cont dated 01/10/2020; Brain W/Wo Cont dated 05/02/2021 FINDINGS: Contrast enhance 2D [id number] MR angiography of the neck vessels was performed. Widely patent bilateral carotid systems and vertebral arteries. IMPRESSION: No flow limiting stenosis within the neck. Carotid doppler: COMPARISON: CTA neck May 01, 2021 FINDINGS: The velocity of the right internal carotid artery equals 84 cm/sec. The right ICA/CCA ratio 1.3 The velocity of the left internal carotid artery equals 74 cm/sec. The left ICA/CCA ratio 1.1 Plaque is not visualized within the carotid arteries. The vertebral arteries demonstrate antegrade flow IMPRESSION: Unremarkable exam Follow up CT scan: COMPARISON: May 01, 2021 TECHNIQUE: Computed axial tomography of the head was obtained. IV contrast was not requested. All CT scans are performed using dose optimization technique as appropriate and may include automated exposure control or mA/KV adjustment according to patient size. FINDINGS: An intracranial bleed is not seen . The ventricles are normal in caliber. No extra-axial fluid collection is noted. Fluid within the sinuses/ mastoids is not seen. IMPRESSION: No acute intracranial abnormality is seen. Physical exam: General: Alert, In no apparent distress, Oriented x3 HEENT: Atraumatic, PERRLA, Mucous membr. moist/pink, EOMI, Sclerae nonicteric Neck: Supple, 2+ carotid pulse no bruit, No LAD, Without JVD or thyroid abnormality Respiratory: Clear to auscultation bilaterally, Normal air movement Cardiovascular: Regular rate/rhythm, Normal S1 S2 Capillary refill: <2 Seconds Gastrointestinal: Normal bowel sounds, No tenderness Musculoskeletal: No tenderness Integumentary: No rashes Neurological: Normal affect, Abnormal speech (Mild expressive aphasia noted), Abnormal strength (2/5 strength right upper extremity, 4/5 strength left upper extremity, 4/5 strength right lower extremity, 1/5 strength left lower extremity) Lymphatics: No axilla or inguinal lymphadenopathy Impression: Right upper extremity weakness, dysphagia secondary to CVA status post TPA infusion complicated with prior CVA likely with late residual effect History of previous CVA with lower extremity weakness, wheelchair-bound Seizure disorder Migraines Hypothyroidism Hyperlipidemia Rheumatoid arthritis Lupus Restless leg syndrome Depression with anxiety History of orthostatic hypotension Chronic constipation Plan: Right upper extremity weakness, dysphagia secondary to CVA status post TPA infusion complicated with prior CVA likely with late residual effect: Spoke with neurology. Continue with current treatment plan. Patient has been accepted to inpatient rehab. Patient will be transferred to inpatient rehab to continue current management. Seizure disorder: Continue with seizure precautions. Continue with her medications including Vimpat 50 mg 1 pill twice daily, Keppra 1500 mg 1 pill twice daily and gabapentin 200 mg 1 pill twice daily. Patient would benefit with inpatient rehab. Await recommendations by neurology, physical therapy/Occupational Therapy.. Migraines: Continue with Topamax 25 mg daily. May use home medication of Ubrelvy 50 mg 4 times a day as needed. If not able to use Ubrelvy then will continue with sumatriptan 25 mg as needed. Hypothyroidism: TSH and free T4 abnormal. Patient previously on 175 mcg of Synthroid. Medication adjusted. Continue Synthroid to 200 mcg daily. Recommend to recheck TSH and free T4 in 4 to 6 weeks to further monitor and adjust. Hyperlipidemia: Continue with Crestor 10 mg daily. Rheumatoid arthritis: Continue Plaquenil 200 mg daily Lupus: Continue Plaquenil 200 mg daily Restless leg syndrome: We will monitor closely. Depression with anxiety: Patient did report that she is depressed. Patient is not suicidal but has had suicidal thoughts in the past. This was discussed in detail with the patient in detail along with the . Case also discussed with psychiatry. Psychiatry recommends a possibility of adding SSRI to her regimen. Psychiatry recommends outpatient follow-up as the patient will require inpatient rehab. Will discuss with neurology before starting SSRI. Patient already takes trazodone 150 mg at bedtime. History of orthostatic hypotension: Patient will continue with midodrine 2.5 mg 1 pill 3 times a day. Chronic constipation: Patient will continue with Linzess daily DVT PPX: We will discuss with neurology about starting Lovenox for DVT prophylaxis. Code status: Full Discharge Plan: Inpatient rehab Time Spent Managing Pts Care (In Minutes): 55
[2021-05-04] MEDS: LEVOTHYROXINE SOD 0.1 MG TAB PO SCH (06:08)
[2021-05-04] MEDS: NICOTINE 14 MG/PAT TD SCH (08:38)
[2021-05-04] MEDS: HYDROXYCHLOROQUINE 200MG TAB PO SCH (08:39)
[2021-05-04] MEDS: GABAPENTIN 100 MG CAP PO SCH ×2 (08:40→20:49)
[2021-05-04] MEDS: FOLIC ACID 1 MG TABLET PO SCH (08:40)
[2021-05-04] MEDS: ASPIRIN EC 81 MG TAB PO SCH (08:40)
[2021-05-04] MEDS: ROSUVASTATIN 10 MG TAB PO SCH (08:40)
[2021-05-04] MEDS: TOPIRAMATE 25 MG TAB PO SCH (08:40)
[2021-05-04] MEDS: levETIRAcetam 500 MG TAB PO SCH ×2 (08:41→20:48)
[2021-05-04] MEDS: MIDODRINE HCL 5 MG TABLET PO SCH ×3 (08:42→20:49)
[2021-05-04] MEDS: LACOSAMIDE 50 MG TABLET PO SCH ×2 (08:43→20:49)
[2021-05-04] MEDS: Linaclotide [Linzess] 290 MCG Capsule *PT OWN MED PO SCH (08:43)
[2021-05-04] MEDS: CLOPIDOGREL 75 MG TABLET PO SCH (08:43)
[2021-05-04] MEDS ORDERED: POTASSIUM CL SA 10 MEQ TAB PO ONE (09:00)
[2021-05-04] MEDS: HYDROCODONE/APAP 7.5/325 MG TAB PO PRN ×2 (12:34→20:48)
--- NOTE | 2021-05-04 15:33 | P.DS ---
Admission Date: 05/01/21 Discharge Date: 05/04/21 Primary Care Provider: Dr. Praveen Velazquez Disposition: TRANSFER TO INPATIENT REHAB Discharge Condition: GOOD Reason for Admission: RUE weakness Consultations: Neurology-Dr. Morton Procedures: COVID: Negative CT head: COMPARISON: 2019 TECHNIQUE: Computed axial tomography of the head was obtained. All CT scans are performed using dose optimization technique as appropriate and may include automated exposure control or mA/KV adjustment according to patient size. FINDINGS: An intracranial bleed is not seen . The ventricles are normal in caliber. No extra-axial fluid collection is noted. Fluid within the sinuses/ mastoids is not seen. IMPRESSION: No acute intracranial abnormality is seen. CTA Head: COMPARISON: None TECHNIQUE: CT angiogram of the head was obtained. 3D MIPS reconstruction performed. All CT scans are performed using dose optimization technique as appropriate and may include automated exposure control or mA/KV adjustment according to patient size. FINDINGS: The basilar, internal carotid, anterior cerebral, middle cerebral and posterior cerebral arteries are normal caliber. An aneurysm is not seen. A significant stenosis is not noted. IMPRESSION: Unremarkable CT angiogram head. CTA Neck: COMPARISON: None TECHNIQUE: 50 cc Isovue 370 was administered intravenously. 3D MIP reconstruction performed All CT scans are performed using dose optimization technique as appropriate and may include automated exposure control or mA/KV adjustment according to patient size. FINDINGS: Common carotid, internal carotid and external carotid arteries bilaterally are normal caliber. No plaque noted. No aneurysm. The vertebral arteries are codominant without abnormality. No dissection noted IMPRESSION: Unremarkable exam MRI Brain: COMPARISON: MRA Head Wo Cont dated 05/02/2021; Brain W/Wo Cont dated 01/10/2020; MRA Head Wo Cont dated 01/10/2020; Brain Wo Cont dated 05/28/2019 TECHNIQUE: Sagittal T1-weighted images were obtained along with PD/heavily T2- weighted and T2-FLAIR images. Axial DWI and ADC mapping sequences were also obtained along with coronal heavily T2-weighted images were obtained. Contrast was administered. FINDINGS: No intracranial hemorrhage, mass or acute infarction. There is no edema or shift of midline structures. No extra-axial fluid collections. Signal voids are seen as a normal finding in the major intracranial vessels. No significant white matter disease. Mastoid air cells and paranasal sinuses are clear. IMPRESSION: No acute intracranial abnormality. No abnormal enhancement or acute infarct. MRA Brain: COMPARISON: Brain W/Wo Cont dated 01/10/2020; MRA Head Wo Cont dated 01/10/2020; Brain Wo Cont dated 05/28/2019 FINDINGS: 3D noncontrast [id number] MR angiography of the [place] was performed. No aneurysm, flow-limiting stenosis or vascular malformation is seen. Forward flow seen in codominant vertebral arteries. The visualized dural venous sinuses appear patent. IMPRESSION: No significant flow abnormality of the [place] is identified. MRA Neck: COMPARISON: MRA Neck W/Wo Cont dated 01/10/2020; Brain W/Wo Cont dated 05/02/2021 FINDINGS: Contrast enhance 2D [id number] MR angiography of the neck vessels was performed. Widely patent bilateral carotid systems and vertebral arteries. IMPRESSION: No flow limiting stenosis within the neck. Carotid doppler: COMPARISON: CTA neck May 01, 2021 FINDINGS: The velocity of the right internal carotid artery equals 84 cm/sec. The right ICA/CCA ratio 1.3 The velocity of the left internal carotid artery equals 74 cm/sec. The left ICA/CCA ratio 1.1 Plaque is not visualized within the carotid arteries. The vertebral arteries demonstrate antegrade flow IMPRESSION: Unremarkable exam Follow up CT scan: COMPARISON: May 01, 2021 TECHNIQUE: Computed axial tomography of the head was obtained. IV contrast was not requested. All CT scans are performed using dose optimization technique as appropriate and may include automated exposure control or mA/KV adjustment according to patient size. FINDINGS: An intracranial bleed is not seen . The ventricles are normal in caliber. No extra-axial fluid collection is noted. Fluid within the sinuses/ mastoids is not seen. IMPRESSION: No acute intracranial abnormality is seen. Medical Problem List: Right upper extremity weakness, dysphagia secondary to CVA status post TPA infusion complicated with prior CVA likely with late residual effect History of previous CVA with lower extremity weakness, wheelchair-bound Seizure disorder Migraines Hypothyroidism Hyperlipidemia Rheumatoid arthritis Lupus Restless leg syndrome Depression with anxiety History of orthostatic hypotension Chronic constipation Brief History of Present Illness: 41-year-old female with history of previous CVA, migraines, seizure disorder, lupus, rheumatoid arthritis, hypothyroidism, restless leg syndrome presents emergency department for right-sided weakness. Patient with baseline paresis of left lower extremity with weakness of the right lower extremity and bilateral upper extremities. Prior to admission patient woke up with difficulty with speech and right upper extremity weakness. Patient reported no seizure activity. Patient was evaluated in the emergency room. Case discussed with neurology. Neurology recommended TPA due to her symptoms. Patient was admitted for further evaluation and treatment. Hospital Course: Patient presented with right upper extremity weakness and dysphagia. Patient with history of prior CVA with disability. Patient presented to the emergency room. Case discussed with ER and neurology. Both agreed patient would benefit with TPA. Patient received TPA with some improvement. Follow-up CT scan shows no hemorrhagic conversion. MRI reviewed with neurology. Neurology recommended aspirin, Plavix, folic acid and Crestor. New medication includes Plavix and folic acid. Patient has done well. Patient evaluated for inpatient rehab. Patient was accepted. At discharge she will continue with aspirin 81 mg daily, Plavix 75 mg daily, folic acid 1 mg daily, and Crestor 10 mg daily. Fall precautions in place. Patient will follow up with PCP after inpatient rehab. Patient with underlying seizure disorder. Overall stable. At discharge she will continue with Vimpat 50 mg 1 pill twice daily, Keppra 1500 mg 1 pill twice daily and gabapentin 200 mg 1 pill twice daily. Patient with migraines. At discharge we will continue Topamax 25 mg daily. Patient may continue with home medicationUbrelvy 50 mg 4 times a day as needed. Patient with hypothyroidism. TSH and free T4 were abnormal. Adjustment in medication was required. Patient previously on 175 mcg daily. Medication will be increased to 200 mcg daily. At discharge we will continue with 200 mcg daily. Recommend to recheck TSH and free T4 in 4 to 6 weeks to further monitor and adjust. Patient with hyperlipidemia. At discharge she will continue with Crestor 10 mg daily. Recommend to recheck fasting lipid panel in 4 to 6 weeks to monitor her progress. Patient with rheumatoid arthritis and lupus. At discharge we will continue with Plaquenil 200 mg daily. Patient with history of orthostatic hypotension. At discharge she will continue with her medication midodrine 2.5 mg 1 pill 3 times a day. Further adjustment in medication may be required. Patient with chronic constipation. At discharge we will continue with Linzess 1 pill daily. Patient with history of tobacco abuse. Tobacco cessation addressed in detail. At discharge she will continue with NicoDerm patch daily. Further adjustment can be done by PCP. Patient with depression and anxiety. Patient has had suicidal thoughts in the past. This was addressed in detail with psychiatry. Psychiatry recommends follow-up as an outpatient to further address. Inpatient rehab hopefully will benefit her condition at this time. Patient will continue with her current medication of trazodone 150 mg at bedtime. Consider other medication like SSRI in the future if depression continues. Further adjustment in medication can be done by neurology or psychiatry. Vital Signs/Physical Exam: Temp Pulse Resp BP Pulse Ox 96.8 F 64 16 91/60 97 05/04/21 15:32 05/04/21 15:32 05/04/21 15:32 05/04/21 15:32 05/04/21 15:32 General: Alert, In no apparent distress, Oriented x3, Cooperative HEENT: Atraumatic Neck: Supple Respiratory: Clear to auscultation bilaterally, Normal air movement Cardiovascular: Normal pulses, Regular rate/rhythm Gastrointestinal: Normal bowel sounds Musculoskeletal: No erythema, No tenderness, No warmth Neurological: Other (Weakness to the right upper extremity improved.) Laboratory Data at Discharge: WBC 8.00 K/uL (4.3-10.9) D 05/04/21 03:33 Hgb 11.0 g/dL (12.0-15.0) L 05/04/21 03:33 Hct 33.1 % (36.0-45.0) L 05/04/21 03:33 Plt Count 206 K/uL (152-406) 05/04/21 03:33 PT 11.9 SECONDS (9.5-12.5) 05/01/21 15:42 INR 1.03 05/01/21 15:42 APTT 33.0 SECONDS (24.3-36.9) 05/01/21 15:42 Sodium 141 mmol/L (136-145) 05/04/21 03:33 Potassium 3.6 mmol/L (3.5-5.1) 05/04/21 03:33 BUN 6 mg/dL (7-18) L 05/04/21 03:33 Creatinine 0.76 mg/dL (0.55-1.3) 05/04/21 03:33 Glucose 90 mg/dL (74-106) 05/04/21 03:33 Magnesium 2.2 mg/dL (1.8-2.4) 05/01/21 15:42 Total Bilirubin 0.2 mg/dL (0.2-1.0) 05/04/21 03:33 AST 9 U/L (15-37) L 05/04/21 03:33 ALT 14 U/L (12-78) 05/04/21 03:33 Alkaline Phosphatase 65 U/L (45-117) 05/04/21 03:33 Triglycerides 65 mg/dL (<150) 05/02/21 04:35 Cholesterol 122 mg/dL (<200) 05/02/21 04:35 HDL Cholesterol 43 mg/dL (40-60) 05/02/21 04:35 Cholesterol/HDL Ratio 2.84 05/02/21 04:35 Home Medications: Gabapentin 2 tab PO BID 01/10/20 Midodrine HCl 2.5 mg PO TID 01/10/20 Rosuvastatin Calcium [Crestor] 1 tab PO DAILY 01/10/20 levETIRAcetam [Keppra*] 1,500 mg PO BID 01/10/20 Lacosamide [Vimpat] 50 mg PO BID 01/11/20 Trazodone [Desyrel*] 150 mg PO BEDTIME 01/11/20 Aspirin [Aspirin EC 81 MG] 81 mg PO DAILY #30 tablet. 01/12/20 Hydroxychloroquine [Plaquenil*] 200 mg PO DAILY 05/01/21 Linaclotide [Linzess] 240 mcg PO DAILY 05/01/21 Topiramate [Topamax] 25 mg PO DAILY 05/01/21 Ubrogepant [Ubrelvy] 50 mg PO QID PRN 05/01/21 Clopidogrel Bisulfate [Plavix*] 75 mg PO DAILY #30 tablet 05/04/21 Folic Acid 1 mg PO DAILY #90 tablet 05/04/21 Levothyroxine [Synthroid*] 0.2 mg PO DAILYAC #30 tab 05/04/21 Nicotine [Nicoderm*] 14 mg TD DAILY #30 patch.td24 05/04/21 New Medications: Folic Acid 1 mg PO DAILY #90 tablet Nicotine [Nicoderm*] 14 mg TD DAILY #30 patch.td24 Clopidogrel Bisulfate [Plavix*] 75 mg PO DAILY #30 tablet Levothyroxine [Synthroid*] 0.2 mg PO DAILYAC #30 tab Physician Discharge Instructions: Patient presented with right upper extremity weakness and dysphagia. Patient with history of prior CVA with disability. Patient presented to the emergency room. Case discussed with ER and neurology. Both agreed patient would benefit with TPA. Patient received TPA with some improvement. Follow-up CT scan shows no hemorrhagic conversion. MRI reviewed with neurology. Neurology recommended aspirin, Plavix, folic acid and Crestor. New medication includes Plavix and folic acid. Patient has done well. Patient evaluated for inpatient rehab. Patient was accepted. At discharge she will continue with aspirin 81 mg daily, Plavix 75 mg daily, folic acid 1 mg daily, and Crestor 10 mg daily. Fall precautions in place. Patient will follow up with PCP after inpatient rehab. Patient with underlying seizure disorder. Overall stable. At discharge she will continue with Vimpat 50 mg 1 pill twice daily, Keppra 1500 mg 1 pill twice daily and gabapentin 200 mg 1 pill twice daily. Patient with migraines. At discharge we will continue Topamax 25 mg daily. Patient may continue with home medicationUbrelvy 50 mg 4 times a day as needed. Patient with hypothyroidism. TSH and free T4 were abnormal. Adjustment in medication was required. Patient previously on 175 mcg daily. Medication will be increased to 200 mcg daily. At discharge we will continue with 200 mcg daily. Recommend to recheck TSH and free T4 in 4 to 6 weeks to further monitor and adjust. Patient with hyperlipidemia. At discharge she will continue with Crestor 10 mg daily. Recommend to recheck fasting lipid panel in 4 to 6 weeks to monitor her progress. Patient with rheumatoid arthritis and lupus. At discharge we will continue with Plaquenil 200 mg daily. Patient with history of orthostatic hypotension. At discharge she will continue with her medication midodrine 2.5 mg 1 pill 3 times a day. Further adjustment in medication may be required. Patient with chronic constipation. At discharge we will continue with Linzess 1 pill daily. Patient with history of tobacco abuse. Tobacco cessation addressed in detail. At discharge she will continue with NicoDerm patch daily. Further adjustment can be done by PCP. Patient with depression and anxiety. Patient has had suicidal thoughts in the past. This was addressed in detail with psychiatry. Psychiatry recommends follow-up as an outpatient to further address. Inpatient rehab hopefully will benefit her condition at this time. Patient will continue with her current medication of trazodone 150 mg at bedtime. Consider other medication like SSRI in the future if depression continues. Further adjustment in medication can be done by neurology or psychiatry. Diet: AHA Activity: Fall precautions Followup: NONE,NONE [Primary Care Provider] - Time spent managing pt's care (in minutes): 55
[2021-05-04] MEDS ORDERED: TRAZODONE 50 MG TABLET ONE (19:49)
--- NOTE | 2021-05-04 20:02 | CON ---
Reason For Consultation: Consultation called because of worsening right more than left upper and low er extremity weakness. History Of Present Illness: Ms. Boyle is a 41-year-old patient who I have seen in the clinic for frances gross with prior stroke. She has seizures, lupus, hypothyroidism, restless legs syndrome, but comes to [facility] with worsening right-sided weakness above her baseline. Apparently, she took a nap on the 30 of April and woke up around 1 o'clock noting more weakness and confusion, slurred speech, difficulty getting her thoughts together, and getting her words out. At [facility] , she was felt though to be within the window for tPA as she arrives within 4.5 hours of worsening ri ght-sided weakness. Actual deficit onset was noted to be around 01:30 p.m. when she arrived at [facility] at 03:13 p.m. and given she did not have any contraindications to tPA and her NIH Stro ke Scale was 14. She did receive tPA. There was, however, no significant change to her weakness fol lowing tPA and her MRI of the brain done the following day showed no acute ischemic or hemorrhagic fi ndings. There was, however, an MRI done in May of 2019 that identified a lacunar infarct, identi fied as a single punctate focus of hyperintense T2 signal in the right frontal lobe white matter. Th is was felt to be related to migraine. Her medication regimen was resumed. Blood work did reveal a very elevated TSH of 14.6 and very low free T4 of 0.73. Her thyroid medication was adjusted. She bravo d no significant abnormalities. On liver function studies, her LDL cholesterol was 66, HDL 43, and c reatinine normal at 0.76. Calcium and magnesium unremarkable. Glucose unremarkable. Urinalysis was negative. Past Medical History: As noted with hypothyroidism, migraine, dyslipidemia, seizures, rheumatoid art hritis, lupus, and restless legs syndrome. Allergies: NO KNOWN DRUG ALLERGIES. Home Medications: Gabapentin twice daily, levothyroxine daily, midodrine 2.5 mg three times daily, Z antac daily, Crestor daily, Keppra 1500 mg twice daily, Vimpat 50 mg twice daily, trazodone 150 mg at bedtime, and aspirin 81 mg daily. Family History: Heart disease, diabetes in mother and brother, and brother had seizures. Social History: The patient smoke cigarettes daily, but denies alcohol or drug use. Review of Systems: She reports weakness in the right and left lower and upper extremities, some episodes of confusion an d stuttering speech that appears to have worsened since this most recent hospital visit. Otherwise, no active gastrointestinal or genitourinary issues. No other positives such as dermatological issues or psychiatric issues. Physical Examination: Vital Signs: Blood pressure ranged from 96 to 109 over 50 to 64, pulse ranged from 59 to 64, tempera ture 97.8, and oxygen saturation 98%. General: Ms. Boyle is lying in bed. She is in no significant distress. HEENT: She is normocephalic, atraumatic. She is missing several teeth. Sclerae anicteric. Orophar ynx is moist and pink. Neck: Supple. Chest: Stays clear. Heart: Regular. Extremities: Show no significant edema, cyanosis, or clubbing. Neurologic: In the left upper and lower extremities, she has subtle weakness there, 4+/5 on the righ t side. She is able to lift the arm off the bed with some subtle movement of the wrist and finger ex tension and flexion, around 2/5 in the lower extremity on the right side and around 2/5 proximally an d distally on the left, 4/5. Sensation reports decreased to light touch temperature in her right upp er and lower compared to the left upper and lower extremities. Coordination, unable to assess due to weakness on the right side, unable to stand and ambulate. Assessment: Ms. Boyle is a 41-year-old patient with hypothyroidism that is not yet optimized. She d oes have history of migraines and lacunar infarct. This current admission, she did receive tPA for p resumed stroke and that is as resolved in terms of brain MRI showing no issue at this point, however, clinically she does have evidence of significant right-sided weakness, which would be appropriate to perform aggressive rehab for her and the weakness may be aggravated by her uncontrolled hypothyroidi sm. She has other comorbid conditions as noted. Plan: 1.Admit to the inpatient rehabilitation unit for aggressive physical, occupational, and speech thera py. 2.Adjustment of her thyroid medication is required. 3.Aspirin, Plavix, and folic acid. 4.Continue gabapentin. Continue Vimpat, Keppra, and midodrine for pressure support. Continue Crest or for dyslipidemia. Continue Imitrex and Topamax for migraine. LB/MODL Voice ID: [id number] Report ID: [id number]
[2021-05-04] MEDS: TRAZODONE 150 MG TAB PO SCH (20:49)
[2021-05-04 21:43] VITALS: BP 83/58; TEMP 97.1
[2021-05-05 01:05] VITALS: O2SAT 100
== END 2021-05-04 21:59 | DRG 57 ==
LOC: ER 15:12 → ERHOLD 18:53 → 4TH 05-02 22:07 → 2ND 05-04 16:48
PROVIDERS: ADMIT Family Medicine; ATTEND Family Medicine
DX: I69.351 Hemiplegia and hemiparesis following cerebral infarction affecting right dominant side (principal); E03.9 Hypothyroidism, unspecified; M06.9 Rheumatoid arthritis, unspecified; F17.200 Nicotine dependence, unspecified, uncomplicated; G43.909 Migraine, unspecified, not intractable, without status migrainosus; E78.5 Hyperlipidemia, unspecified; M32.9 Systemic lupus erythematosus, unspecified; G25.81 Restless legs syndrome; F41.8 Other specified anxiety disorders; K59.09 Other constipation; G40.909 Epilepsy, unspecified, not intractable, without status epilepticus; I69.391 Dysphagia following cerebral infarction; R13.10 Dysphagia, unspecified; R47.02 Dysphasia; R29.714 NIHSS score 14; Z79.82 Long term (current) use of aspirin; Z90.710 Acquired absence of both cervix and uterus; Z99.3 Dependence on wheelchair; Z90.49 Acquired absence of other specified parts of digestive tract; Z79.899 Other long term (current) drug therapy; Z79.02 Long term (current) use of antithrombotics/antiplatelets; Z79.890 Hormone replacement therapy; Z20.822 Contact with and (suspected) exposure to COVID-19
CPT/HCPCS: 36415; 70450; 70496; 70498; 70544; 70549; 70553; 71045; 80048; 80053; 80061; 82947; 83735; 84439; 84443; 84484; 85025; 85610; 85730; 92610; 92977; 93005; 93306; 93880; 97110; 97112; 97161; 97165; 97530; 97542; 99291; 99292; A9577; J2997; Q9967; U0003

== ENCOUNTER 2021-05-04 09:50 | Inpatient (IN) | payer BC ==
--- NOTE | 2021-05-04 17:34 | R.PREADM ---
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 Tanvir Garvey REFERRING PHYSICIAN Dr. Tanvir Garvey REHAB FACILITY [facility] CLINICAL LIAISON Sylvester Langford PHYSICIAN REVIEWER Dr. Myron Morton M.D. MR# [id number] NAME DESTINEE NOLAN ADDRESS [address] [facility] [id number] DATE OF 1980 AGE 41 SSN# [id number] GENDER female MARITAL STATUS RACE white ADMIT FROM 02 - [facility] PRE-HOSPITAL LIVING SETTING 01 - Home (private home/apt. board/care, assisted living, care home, transitional living) HOME TYPE AND DETAILS Type of home: apartment # of levels in the residence: 1 # of steps within the residence: 0 # of steps to enter the residence: 0 Pt claims to live w/ spouse, son, daughter and daughters son in a bottom floor apt., handicapped acce ssible per pt. Pt. claims to be non-ambulatory and relies on a wheelchair for mobility, she would get from her bed to wheelchair, wheel around in her wheelchair to the bathroom, able to roll into the ower, stands and pivots to shower chair, was unable to wash her hair due to R shoulder limitation per pt. Her works from home per pt. PRE-HOSPITAL LIVING WITH Family/Relatives FAMILY SUPPORT Yes PHONE PRIMARY FAMILY CONTACT ON ADM.? no IS PRIMARY FAMILY CONTACT AUTH. REP.? no PHONE 1ST CONTACT ON ADM. no IS 1ST CONTACT AUTH. REP.? no PHONE 2ND CONTACT ON ADM.? no PATIENT EMPLOYMENT STATUS Disabled PAYOR INFORMATION: 1ST PAYOR NAME [facility] 1ST PAYOR PHONE 1ST PAYOR 1ST PAYOR POLIC[employer] [phone] INJURY/ILLNESS DUE TO ACCIDENT? No ANOTHER CONSTITUTION PARTY RESPONSIBLE? 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 INTERVENTIONS: - Hypothyroid Administer Meds as per MD - Seizure Disorder Administer Meds as per MD - Migraines Monitor and administer medications as per MD - Hyperlipidemia Administer medications as per MD - Rheumatoid Arthritis Administer medications as per MD - Lupus administer medications as per MD - Depression Monitor patient for depression and treat as neccesary - Constipation Monitor and manage appropriately via conservative and medications as needed. RISK FOR COMPLICATIONS: - CVA pt has history of CVA. Will monitor blood pressure and manage with medication. - UTI Monitor for frequency, burning, discomfort, or incontinence - Falls Educated pt on fall prevention strategies to reduce/eliminate fall risk Patient will be evaluated for Fall Precautions and will be placed on Fall Precautions as indicated pe r protocol. - Pain Clinical staff will assess patient's pain level every shift per protocol to monitor for pain manageme nt effectiveness Educate patient on pain management strategies Medications will be given and the pain level reassessed. Clinical Staff may employ other methods such as: massage, distraction, decrease stimulus, etc. as needed - Skin Breakdown Nursing will assess skin daily using assessment tool and will place on Skin Breakdown Precautions as Indicated per protocol - DVT PTT and INR will be monitored to effectively mitigate risk for development of DVT or PE while here. Medications will be administered as per MD SUMMARY OF ACUTE HOSPITALIZATION: Pt. is a 41 yo Right-handed white female. On 05/01/2021 [facility] with sudden onset of right-side weakness. On 05/01/2021 she was admitted to [facility] with diagnosis Clinical L brain cva wi th residual R body hemiparesis. Her impairment category is Stroke 01 - Right Body (Left Brain) (01.2). Pre-morbidly, Pt. was independent/mod-I in Locomotion, Safety Awareness, Transfers Control, Sphincter Control, and Social Cognition; and she had good Balance, Self-Care, and Communication. Currently, she has deficits of Locomotion, Safety Awareness, Balance, Transfers Control, Self-Care, C ommunication, and Endurance. Pt. is now referred to [facility] for acute in-patient rehabilitation in order to maximize patient's functional independence in activities of daily living, strength, ROM, and mobi lity. Patient has realistic goal of being discharged at assistance level 7-Ind to reside at Home with Fami ly/Relatives. PAST MEDICAL HISTORY Rheumatoid arthritis, unspecified (M06.9) Seizure Disorder Hypothyroidism, unspecified (E03.9) Orthostatic hypotension (I95.1) Hypotension (I95) Bradycardia, unspecified (R00.1) Restless legs syndrome (G25.81) CVA Systemic lupus erythematosus, unspecified (M32.9) Migraine headache with aura PAST SURGICAL HISTORY: carpal tunnel surgery Hysterectomy Appendectomy MEDICATION ALLERGIES: No Known Drug Allergies (NKDA) ENVIRONMENTAL ALLERGIES: - Substance Allergies None Known - Other Allergies None Known CODE STATUS: Full code WEIGHT/HEIGHT/BMI: WEIGHT 225 lbs HEIGHT 5' 11" BMI 31.4 DIET: - Diet Type Heart Healthy - Diet - Solid Texture Regular - Diet - Liquid Texture Regular - Tube Feed N/A REVIEW OF SYSTEMS: - Gen Alert and awake Lying in bed No apparent distress Oriented to: person, time, and place - Vital Signs Temperature: 96.8 F SBP/DBP: 91/60 Pulse: 64 Resp: 16 Vital signs stable, afebrile - CVS RRR VITAL SIGNS Temperature: 96.8 F SBP/DBP: 91/60 Pulse: 64 Resp: 16 Vital signs stable, afebrile MEDICATIONS/TREATMENT: Other- See attached MAR (Medication Administration Record). CURRENT SPHINCTER CONTROL: Pre-hospital bladder status: unspecified # of bladder accidents in the last 7 days prior to screenin Pre-hospital bowel status: unspecified # of bowel accidents in the last 7 days prior to screenin Last Bowel Movement Date: 05/04/2021 CURRENT LOCOMOTION STATUS: distance traveled in wheelchair 250 feet distance walked 0 feet DETAILED CURRENT FUNCTIONAL STATUS: - Bladder accident frequency: 7-Ind - No accidents in the past 7 days - Bowel accident frequency: 7-Ind - No accidents in the past 7 days - Walking score based on distance walked: 0(N/A) - Wheelchair score based on distance traveled: 0(N/A) score based on distance traveled: 3(>=150ft) QI SCORES: - Self-Care A. Eating 05-Setup or clean-up assistance B. Oral hygiene 05-Setup or clean-up assistance C. Toileting hygiene 02-Substantial/maximal assistance E. Shower/bathe self 02-Substantial/maximal assistance F. Upper body dressing 02-Substantial/maximal assistance G. Lower body dressing 02-Substantial/maximal assistance H. Putting on/taking off footwear 02-Substantial/maximal assistance - Mobility A. Roll left and right 04-Supervision or touching assistance B. Sit to lying 04-Supervision or touching assistance C. Lying to sitting on side of bed 04-Supervision or touching assistance D. Sit to stand 03-Partial/moderate assistance E. Chair/oeo-ss-usapl transfer 03-Partial/moderate assistance F. Toilet transfer 03-Partial/moderate assistance G. Car transfer 10-Not attempted due to environmental limitations I. Walk 10 feet 88-Not attempted due to medical condition or safety concerns J. Walk 50 feet with two turns 88-Not attempted due to medical condition or safety concerns K. Walk 150 feet 88-Not attempted due to medical condition or safety concerns L. Walking 10 feet on uneven surfaces 88-Not attempted due to medical condition or safety concerns M. 1 step (curb) 88-Not attempted due to medical condition or safety concerns N. 4 steps 88-Not attempted due to medical condition or safety concerns O. 12 steps 88-Not attempted due to medical condition or safety concerns P. Picking up object 88-Not attempted due to medical condition or safety concerns R. Wheel 50 feet with two turns 03-Partial/moderate assistance S. Wheel 150 feet 04-Supervision or touching assistance - Bladder and Bowel Bladder continence 0-Always continent Bowel continence 0-Always continent - Endurance Poor - Balance Poor - Safety Awareness Poor CURRENT FUNC. DEFICITS: Self-Care, Mobility, Endurance, Balance, and Safety Awareness CURRENT / PREVIOUS ASSISTIVE DEVICES: Shower Chair Wheelchair HISTORY OF FALLS. HAS THE PATIENT HAD TWO OR MORE FALLS IN THE PAST YEAR OR ANY FALL WITH INJURY IN T HE PAST YEAR?: Unknown PRIOR SURGERY. DID THE PATIENT HAVE MAJOR SURGERY DURING THE 100 DAYS PRIOR TO ADMISSION?: No THERAPY NOTES FROM ACUTE CARE: Attached. SPECIAL NEEDS: - Safety Concerns Skin breakdown precautions needed due to skin breakdown risk Fall precautions needed due to Poor balance PATIENT NEEDS ACTIVE AND ONGOING THERAPEUTIC INTERVENTION OF MULTIPLE THERAPY DISCIPLINES, INCLUDING: - Dietary and Nutrition Adequate Nutrition. Nutritional Education. Nutritional Supplements. - Occupational Therapy Cognitive Retraining. ADL Training. Evaluate and Treat. Patient/Family Education. UE Strengthening. A daptive Equipment. Transfer Training. Visual Perceptual Training. - Speech Therapy Cognitive Training. Expressive Language Skills. Memory Strategies. Receptive Language Skills. Speech Intelligibility Training. - Physical Therapy Evaluate and Treat. Balance Training. Gait Training. Transfer Training. LE Strengthening. Mobility Tr aining. Wheelchair Management. LE ROM. Safety Awareness. Patient/Family Education. PATIENT NEEDS CLOSE MEDICAL SUPERVISION BY A REHABILITATION PHYSICIAN FOR: Coordination of Treatment Team Medical and Co-Morbidity Management Pain Management Bowel and Bladder Management PATIENT REQUIRES 24X7 REHAB NURSING FOR MEDICAL AND FUNCTIONAL MGT. OF THE FOLLOWING DEFICITS: Disease Management Medication Management Patient/Family Education Providing Safe Environment PATIENT REQUIRES INTENSIVE, COORDINATED INTERDISCIPLINARY APPROACH TO REHAB: Arranging Home Equipment/Services Discharge Planning Family Intervention/Training Director Of Events/Case Management PATIENT REHAB POTENTIAL: Pita NOLAN is able and expected to receive 3 hours of individualized therapy daily on at least 5 of harriet ry 7 days Pita NOLAN's prognosis for significant practical improvement within a reasonable period of time appears Good Expected level of measurable improvement will be of a practical value to Pita NOLAN's functional capaci ty or adaptations to impairments Has a viable Discharge Plan Medically appropriate; condition is sufficiently stable to participate in intensive rehab program DISCHARGE PLAN: - Estimated Length of Stay (days) 14. - Consensus on plan Discharge plan has been discussed with primary caregiver. Patient/Family is in agreement with the justyn n. Primary caregiver is in agreement with the plan. - Patient/Family Goals Return home independently. - Planned Living Setting Upon Discharge Home, to live with Family/Relatives. Transitional Living. RECOMMENDED CARE LEVEL: IRF RECOMMENDATION DETAILS: Recommended Admission to Comprehensive Rehabilitation Program to Increase Functional Ness SCREENER'S COMPLETENESS CONFIRMATION: - Screening Confirmation The patient data collection on this preadmission screening form is finished PHYSICIANS REVIEW AND ADMISSION DETERMINATION Admit - Based on my review of the Pre-Admission Screening results, in my medical judgment and experie nce, I concur with the findings and recommend admission to [facility], as this patient requires an IRF level of care. SIGNATURE PANEL: Central Processing Technician - [electronically] signed by Sylvester Langford PT on 05/04/2021 at 17:30 (CHAIRMAN CEO) Physician Reviewer - [electronically] signed by Dr. Myron Morton M.D. on 05/04/2021 at 17:33 (CHAIRMAN CEO )
--- OUTSIDE RECORDS SUMMARY | 2021-05-04 22:13 | XMS REPORT | Continuity of Care Document ---
:1980 Author Organization [facility] t Address [address] [place] [address] Care Team Providers Name Role Phone LIZET Attending Clinician Unavailable Akiko [place] Attending Clinician Payers Payer Name Policy Type Policy Number Effective Date Expiration Date S ource Problems Condition Condition Condition Status Onset Resolution Last Treating Co mments Source Name Details Category Date Date Treatment Clinician Date No known No known Disease Unive rs active active ity of problems problems [facility] Allergies, Adverse Reactions, Alerts Allergy Allergy Status Severity Reaction(s) Onset Inactive Treating Comm ents Source Name Type Date Date Clinician NO KNOWN Drug Active Univers ALLERGIE Class ity of S [facility] Social History Social Habit Start Date Stop Date Quantity Comments Source Sex Assigned At Uni versity [facility] Exposure to SARS-CoV-2 Not sure [facility] [place] (event) [facility] Smoking Status Start Date Stop Date Source Unknown if ever smoked Universit y [facility] Medications Ordered Filled Start Stop Current Ordering Indication Dosage Frequency Signature Comments Components Source Medication Medication Date Date Medication? Clinician (SIG) Name Name amoxicillin 2020- No 1{tbl} 1 tablet, Univers -clavulanat 05-31 Oral, ONCE i ty of e 05:00: 04:02 NOW, 1 [place] (AUGMENTIN) 00 :00 dose, Tue Med ical 875-125 mg 05/30/20 at Bran ch per tablet 2300, 1 tablet Routine
Reason for Anti-Infec tive: Documented Infection< br>Documen justino Infection Site: Respirator y
Durat ion of Therapy: Other (see Comments) ketorolac No 15mg 15 [facility], [facility] 05-31 Slow IV ity of injection 03:30: 02:26 Push, [place] 15 mg 00 :00 ONCE, 1 Medical dose, [facility] 05/30/20 at 2130, EVANS
Fa culty member approving Restricted medication : ZOE NAVAS hydrOXYzine 2020- No 25mg 25 mg, Uni vers (ATARAX) 05-31 Oral, ity of tablet 25 03:30: 02:26 [place]CE[place] mg 00 :00 dose, [facility] 05/30/20 at Branch 2130, EVANS famotidine 2020- No 20mg 20 mg, Univ ers (PEPCID 05-31 Slow IV ity of (PF)) 03:30: 02:26 Push, [place] injection 00 :00 ONCE, 1 Medical 20 mg dose, [facility] 05/30/20 at 2130, EVANS iohexol 2020- No 100mL 100 mL, [facility] (OMNIPAQUE 05-31 Intravenou it y of 350 01:45: 01:37 s, ONCE, 1 [place] BULK-150 00 :00 dose, [facility] Medica l mL) 05/30/20 at Branch injection 1944, 100 mL Routine butalbital- 2020- No 1{tbl} 1 tablet, Univers acetaminoph 05-31 Oral, ONCE i ty of en-caff 01:45: 00:52 NOW, 1 [place] (ESGIC) 00 :00 dose, [facility] 50-325-40 05/30/20 at [facility] h mg tablet 1 1944, tablet Routine diphenhydrA No 50mg 50 mg, Uni vers MINE 05-31 Slow IV ity of (BENADRYL) 00:15: 00:52 Push, [place] injection 00 :00 ONCE, 1 Medical 50 mg dose, [facility] 05/30/20 at 1815, STAT methylPREDN 2020- No 40mg 40 mg, IV Univers ISolone sod 05-31 Piggyback, i ty of succ 00:15: 00:52 ONCE, 1 [place] (SOLU-MEDRO 00 :00 dose, Tue Med ical L (PF)) 05/30/20 at Branch injection 1815, STAT 40 mg NaCl 0.9% 2020- No 1000mL at 999 Uni vers (NS) bolus 05-30 mL/hr, ity of infusion 23:15: 02:15 1,000 mL, [place] as 1,000 mL 00 :00 IV Medical Infusion, Branch ONCE, 1 dose, 05/30/20 at 1715, EVANS albuterol Yes [id number] 2{puff} Inhale 2 Univers 90 1-05 Puffs ity of mcg/actuati 00:00: every 4 [place] as on inhaler 00 (four) Medical hours as Branch needed for Wheezing or Shortness of Breath. hydrOXYzine Yes [id number] 25mg Take 1 Univers 25 mg 1-05 tablet by ity of tablet 00:00: mouth [place] 00 every 6 Medical (six) Branch hours as needed for Itching. amoxicillin 2020- No [id number] 1{tbl} Take 1 Univers -clavulanat 05-30 tablet [...] 03:01:00 105 mm[Hg] Univer sity of pressure [facility] Diastolic blood 2020-05-31 03:01:00 71 mm[Hg] Unive rsity of pressure [place] [facility] [place] Heart rate 2020-05-31 03:01:00 73 /min [facility]i ty [facility] [place] [facility] [place] Body temperature 2020-05-31 03:01:00 36.56 Yan[place] Univ ersity of [facility] Respiratory rate 2020-05-31 03:01:00 18 /min Univ ersity of [facility] Oxygen saturation in 2020-05-31 03:01:00 98 /min University of Arterial blood by [facility] [place] Pulse oximetry Branch Body height 2020-05-30 21:27:00 180.3 cm [facility]i ty [facility] [place] [facility] [place] Body weight 2020-05-30 21:27:00 92.987 kg Universi ty of [facility] BMI 2020-05-30 21:27:00 28.59 kg/m2 Universi ty [facility] Systolic blood 2020-05-31 03:01:00 105 mm[Hg] Univer sity of pressure [facility] Diastolic blood 2020-05-31 03:01:00 71 mm[Hg] Unive rsity of pressure [facility] Heart rate 2020-05-31 03:01:00 73 /min Universi ty [facility] [place] [facility] [place] Body temperature 2020-05-31 03:01:00 36.56 Yanet [facility] Respiratory rate 2020-05-31 03:01:00 18 /min [facility] [place] [facility] [place] Oxygen saturation in 2020-05-31 03:01:00 98 /min University of Arterial blood by [facility] [place] Pulse oximetry Branch Body height 2020-05-30 21:27:00 180.3 cm [facility] [place] [facility] [place] Body weight 2020-05-30 21:27:00 92.987 kg Universi ty [facility] BMI 2020-05-30 21:27:00 28.59 kg/m2 Universi ty [facility] Procedures Procedure Date / Time Performed Performing Clinician Sourc e URINALYSIS 2020-05-31 03:43:00 Zoe Navas [facility] CT CHEST PULMONARY 2020-05-31 01:43:20 Zoe Navas [facility] ANGIOGRAM Medical Branch POCT TEST 2020-05-31 01:29:00 Zoe Navas [facility] Branch COVID-19 (ID NOW RAPID 2020-05-31 00:53:00 Zeo Navas [facility] TESTING) Medical Branch XR CHEST 1 VW 2020-05-31 00:09:22 Zoe Navas [facility] TROPONIN I 2020-05-31 00:03:00 Zoe Navas [facility] COMP. METABOLIC PANEL 2020-05-31 00:03:00 Zoe Navas [facility] ([id number]) Medical Branch CBC WITH DIFF 2020-05-31 00:03:00 Zoe Navas [facility] D-DIMER 2020-05-31 00:03:00 Zoe Navas [facility] NOTICE OF PRIVACY 2020-05-30 21:02:17 Doctor Unassigned, No Univ [facility] PRACTICES Name Medical Branch Encounters Start End Encounter Admission Attending Care Care Encounter Source Date/Time Date/Time Type Type Clinicians Facility Department ID 2020-09-07 2020-09-07 Outpatient [facility] [id number] [place] 00:00:00 00:00:[address] 2020-09-07 2020-09-07 Outpatient [facility] [id number] [place] 00:00:00 00:00:[address] 2020-09-07 2020-09-07 Outpatient [facility] [id number] [place] 00:00:00 00:00:[address] 2020-09-07 2020-09-07 Outpatient [facility]ECK [facility] [id number] [place] 00:00:00 00:00:[address] 2020-05-30 2020-05-30 [id number] 16:01:00 23:26:00 Zoe Ayala [id number] [place] [id number] [place] [id number] 2020-05-30 2020-05-30 Emergency Charity [facility] [id number] [facility] 16:01:00 23:26:00 Zoe Ayala [id number] [facility] [id number] [facility] [id number] [facility] 084 Branch 2020-05-30 2020-05-30 Emergency X [facility] ERT [id number] Univers 15:03:00 15:03:00 ity [facility] Results Test Description Test Time Test Comments Results Result Comments Source URINALYSIS 2020-05-31 04:33:00 Test Item Value Reference Range Interpretation Comme nts APPEARANCE (test code = Clear Clear 0044719491) COLOR (test code = 8260982658) Yellow Yellow PH (test code = 2694947773) 4.8-8.0 SP GRAVITY (test code = 1.003-1.030 H 7487247149) GLU U QUAL (test code = Normal Normal 7399725350) BLOOD (test code = 4187389408) Negative Negative KETONES (test code = 0514211738) Negative Negative PROTEIN (test code = 2887-8) Negative Negative UROBILIN (test code = 9676575978) Normal Normal BILIRUBIN (test code = Negative Negative 4053626786) NITRITE (test code = 2717495037) Negative Negative LEUK VY (test code = Negative Negative 3752879819) RBC/HPF (test code = 5024747297) See_Comment [Automated message] The system which ge nerated this result transmit justino reference range: 0 - 3 HP F. The reference range was not used to interpret th is result as normal/abnormal . WBC/HPF (test code = 3479718956) <1 See_Comment [Automated message] The system which ge nerated this result transmit justino reference range: 0 - 5 HP F. The reference range was not used to interpret th is result as normal/abnormal . BACTERIA (test code = 9880892075) Few Negative A SQ EPITH (test code = 2890776942) <1 HPF Lab Interpretation (test code = Abnormal 05815-4) [facility] [id number] 02:56:04Impression: 1. Patchy ground glass opacities, predominating [...] the spine. No acutebony abnormalities are evident. [facility], Radiant Results Inft User -05/30/2020 8:57 [...] in appearance.4. Cholecyste ctomy.RL: 460End of Report [facility] [place] [facility] 1 [id number] 02:20:50Impression: No acute abnormalities evident. RL: 460 [...] evident.IMPRESSIONImpression:No acute abnormalities evident.RL: 460End of Report [facility] [place] [facility] [id number] 01:29:00 Test Item Value Reference Range Interpretation Comments POCT PREG (test code = Hysterectomy HX of Hysterectomy 1605) Lab Interpretation Normal (test code = 67045-7) [facility] NOW RAPID TESTING)2020-05-31 01:23:00 Test Item Value Reference Range Interpretation Comments SARS-CoV-2 Rapid ID NOW Not Detected Not Detected (test code = 11099-8) JASMEET (test code = JASMEET) ID NOW COVID-19 Assay is an isothermal nucleic acid amplification test intended for the qualitative detection of nucleic acid from SARS-CoV-2 viral RNA in nasopharyngeal (CAGE SUPERVISOR) specimens. It is used under Emergency Use [...] indicated. Lab Interpretation Normal (test code = 39856-0) [facility] [id number] 00:41:00 Test Item Value Reference Range Interpretation Comments TROPONIN I (test <0.012 See_Comment [Automated code = 9786994576) message] The system which generated this result [...] ? Lab Interpretation Normal (test code = 00829-1) [facility] (43351)2020-05-31 00:32:00 Test Item Value Reference Range Interpretation Comments NA (test code = 138 mmol/L 135-145 7396228479) K (test code = 4.0 mmol/L 3.5-5 5293591731) CL (test code = 101 mmol/L 98-108 9622903973) CO2 TOTAL (test code = 27 mmol/L 23-31 4640223890) AGAP (test code = 2-16 1745422383) BUN (test code = 5 mg/dL 7-23 L 4545335545) GLUCOSE (test code = 136 mg/dL 70-110 H 1244199134) CREATININE (test code = 0.56 mg/dL 0.5-1.04 5199408585) TOTAL BILI (test code = 0.4 mg/dL 0.1-1.9 9723925768) CALCIUM (test code = 9.0 mg/dL 8.6-10.6 0561990423) T PROTEIN (test code = 8.3 g/dL 6.3-8.2 H 3253582079) ALBUMIN (test code = 4.6 g/dL 3.5-5 3890649247) ALK PHOS (test code = 93 U/L 34-122 9097417877) ALTv (test code = 21 U/L 5-35 1742-6) AST(SGOT) (test code = 25 U/L 13-40 6016427228) eGFR Calculation mL/min/1.73m2 (Non-) (test code = 1702389084) eGFR Calculation mL/min/1.73m2 () (test code = 8727790140) JASMEET (test code = JASMEET) Association of [...] tests). Lab Interpretation Abnormal (test code = 27853-1) [facility]-[id number] 00:30:00 Test Item Value Reference Interpretation Comments Range D-DIMER (test code = See_Comment H [Autom ated 6498342063) message] The system which generated this result [...] diagnosis. Lab Interpretation Abnormal (test code = 69555-8) [facility] WITH [id number] 00:13:00 Test Item Value Reference Range Interpretation [...] RDW-SD (test code = 40.5 fL 39-49.9 47786-4) RDW-CV (test code = 12.2 % 12-15.5 788-0) PLT (test code = See_Comment [Automated 777-3) message] The system which generated this result transmit justino reference range : 166 - 358 10*3/ ?L. The reference range was not u sed to interpret th is result as normal/abnormal . MPV (test code = 9.4 fL 9.5-12.9 L 19346-7) NRBC/100 WBC (test See_Comment [Automat ed code = 3641886416) message] The system which generated this result transmit justino reference range : 0.0 - 10.0 /100 WBCs. The reference range was not used to interpret this result as normal/abnormal . NRBC x10^3 (test code <0.01 See_Comment [Auto mated = 5843260814) message] The system which generated this result transmit justino reference range : 10*3/?L. The reference range was not used to interpret this result as normal/abnormal . GRAN MAT (NEUT) % 93.5 % (test code = 770-8) IMM GRAN % (test code 0.80 % = 4219755885) LYMPH % (test code = 4.8 % 736-9) MONO % (test code = 0.6 % 5905-5) EOS % (test code = 0.1 % 713-8) BASO % (test code = 0.2 % 706-2) GRAN MAT x10^3(ANC) 13.73 10*3/uL 1.88-7.09 H (test code = 5523234953) IMM GRAN x10^3 (test 0.12 10*3/uL 0-0.06 H code = 6810858545) LYMPH x10^3 (test code 0.71 10*3/uL 1.32-3.29 L = 731-0) MONO x10^3 (test code 0.09 10*3/uL 0.33-0.92 L = 742-7) EOS x10^3 (test code = <0.03 0.03-0.39 L 711-2) BASO x10^3 (test code 0.03 10*3/uL 0.01-0.07 = 704-7) Lab Interpretation Abnormal (test code = 84621-5) [facility]
[2021-05-04 23:15] LABS: Urine Appearance CLEAR (Clear); Urine Bilirubin NEGATIVE (Negative); Urine Blood NEGATIVE (Negative); Urine Color YELLOW (Yellow); Urine Glucose NEGATIVE (Negative); Urine Protein NEGATIVE (Negative); Urine Specific Gravity <=1.005 (1.005-1.030)
[2021-05-04 23:28] LABS: Urine Bacteria 20-50 /HPF (<20); Urine Mucus 1+ /HPF (NONE SEEN); Urine RBC <5 /HPF (NONE SEEN)
[2021-05-05] MEDS ORDERED: UBROGEPANT 50 MG PO PRN (00:48)
[2021-05-05 05:38] VITALS: BMI 31.8
[2021-05-05 06:14] LABS: Absolute Lymphocytes (CBC) 2.5 K/uL (0.7-4.9); Basophils % 0.8 % (0-1.3); Hematocrit 33.8 % (36.0-45.0); Lymphocytes % 31.7 % (15.3-44.8); RBC Red Blood Cell Count 3.82 M/uL (3.86-4.86)
[2021-05-05 06:40] LABS: Albumin 3.2 g/dL (3.4-5.0); BUN Blood Urea Nitrogen 6 mg/dL (7-18); Bicarbonate 26 mmol/L (21-32); Glucose Level 93 mg/dL (74-106); Magnesium 2.3 mg/dL (1.8-2.4); Potassium 3.8 mmol/L (3.5-5.1); Prealbumin 17.3 mg/dL (20-40); Sodium Level 140 mmol/L (136-145)
[2021-05-05] MEDS: LEVOTHYROXINE SOD 0.1 MG TAB PO SCH (06:40)
[2021-05-05] MEDS: ENOXAPARIN 40 MG/0.4 ML SQ SCH (06:40)
[2021-05-05] MEDS ORDERED: GABAPENTIN 400 MG CAP PO SCH (08:00)
[2021-05-05] MEDS: LACOSAMIDE 50 MG TABLET PO SCH ×2 (08:00→19:35)
[2021-05-05] MEDS: LINACLOTIDE PO SCH (08:00)
[2021-05-05] MEDS: NICOTINE 14 MG/PAT TD SCH (10:05)
[2021-05-05] MEDS: GABAPENTIN 100 MG CAP PO SCH ×2 (10:06→19:34)
[2021-05-05] MEDS: ROSUVASTATIN 10 MG TAB PO SCH (10:06)
[2021-05-05] MEDS: ASPIRIN EC 81 MG TAB PO SCH (10:07)
[2021-05-05] MEDS: CLOPIDOGREL 75 MG TABLET PO SCH (10:07)
[2021-05-05] MEDS: MIDODRINE HCL 5 MG TABLET PO SCH ×3 (10:10→20:39)
[2021-05-05] MEDS: FOLIC ACID 1 MG TABLET PO SCH (10:10)
[2021-05-05] MEDS: levETIRAcetam 500 MG TAB PO SCH ×2 (10:11→19:33)
[2021-05-05] MEDS: HYDROXYCHLOROQUINE 200MG TAB PO SCH (12:22)
[2021-05-05] MEDS: TOPIRAMATE 25 MG TAB PO SCH (12:22)
--- NOTE | 2021-05-05 17:45 | R.HP ---
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 board/care, assisted living, correction, transitional living) PRE-HOSPITAL LIVING WITH Family/Relatives ENCOUNTER PHYSICIAN: Dr. Myron Morton M.D. REFERRING DOCTOR: Dr. 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 Pt. claims to be non-ambulatory and relies on a wheelchair for mobility, she would get from her bed to wheelchair, wheel around in her wheelchair to the bathroom, able to roll into the ower, stands and pivots to shower chair, was unable to wash her hair due to R shoulder limitation per pt. Her works from home per pt. ONSET DATE: 05/01/2021 PRIMARY DIAGNOSIS-RELATED SURGERIES: No surgeries related to the primary diagnosis were performed. HISTORY OF PRESENT ILLNESS (HPI): Pt. is a 41 yo Right-handed white female. On 05/01/2021 Pt. presented to [facility] with sudden onset of right-side weakness. 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 Her impairment category is Stroke 01 - Right Body (Left Brain) (01.2). Pre-morbidly, Pt. was independent/mod-I in Locomotion, Safety Awareness, Transfers Control, Sphincter Control, and Social Cognition; and she had good Balance, Self-Care, and Communication. Currently, she has deficits of Locomotion, Safety Awareness, Balance, Transfers Control, Self-Care, C ommunication, and Endurance. Pt. is now referred to [facility] for acute in-patient rehabilitation in order to maximize patient's functional independence in activities of daily living, strength, ROM, and mobi lity. Patient has realistic goal of being discharged at assistance level 7-Ind to reside at Home with Fami ly/Relatives. MEDICATION ALLERGIES: No Known Drug Allergies (NKDA) ENVIRONMENTAL ALLERGIES: - Substance Allergies None Known - Other Allergies None Known PAST MEDICAL HISTORY: Rheumatoid arthritis, unspecified (M06.9) Seizure Disorder Hypothyroidism, unspecified (E03.9) Orthostatic hypotension (I95.1) Hypotension (I95) Bradycardia, unspecified (R00.1) Restless legs syndrome (G25.81) CVA Systemic lupus erythematosus, unspecified (M32.9) Migraine headache with aura PAST SURGICAL HISTORY: carpal tunnel surgery Hysterectomy Appendectomy SOCIAL HISTORY: - Home Living Family/Relatives REVIEW OF SYSTEMS: - Gen No Chills Fatigue No Fever - Eyes No Double Vision No itchiness - ENMT Difficulty Swallowing - CVS No Chest Discomfort No Chest Pain Fatigue No Weight Gain - Resp No Cough No Shortness of Breath - GI Continent No Abdominal Pain No Constipation No Diarrhea - Continent No Kidney Pain No Painful Urination No Urinary Urgency - MSK No Joint Pain Muscle Cramps Stiffness - Skin No Itching No Rash No Suspicious Lesions - Neuro Coordination Difficulty No Difficulty with Concentration No Memory Loss No Seizures Weakness - Psych No Anxiety No Depression No HIV Exposure No Persistent Infections No Seasonal Allergies - Endo No Cold/Heat Intolerance No Excessive Hunger No Excessive Thirst No Excessive Urination PHYSICAL EXAM - Gen Alert and awake Lying in bed No apparent distress Oriented to: person, time, and place - Skin No skin breakdown. Normacephalic - Eyes No abnormalities - ENMT No abnormalities - Neck No abnormalities - CVS RRR - Chest No abnormalities - Abd Soft - GI Non distended Deferred - No abnormalities - Ext No significant edema - MSK 3+/5 weakness in right upper and lower extremities - Neuro 3+/5 weakness in right upper and lower extremities and stuttering speech. Mild right facial weakness. - Psych No abnormalities VITAL SIGNS Temperature: 97.1 F SBP/DBP: 90/60 Pulse: 63 Resp: 16 NURSING: - Shower allowing shower - Bladder care per protocol - Skin care per protocol PRECAUTIONS: - Weight Bearing Precaution WBAT right LE - Fall Precaution Bed alarm TABS alarm Wheel chair alarm ACTIVITIES OOB only with supervision QI SCORES: - Self-Care A. Eating 05-Setup or clean-up assistance B. Oral hygiene 05-Setup or clean-up assistance C. Toileting hygiene 02-Substantial/maximal assistance E. Shower/bathe self 02-Substantial/maximal assistance F. Upper body dressing 02-Substantial/maximal assistance G. Lower body dressing 02-Substantial/maximal assistance H. Putting on/taking off footwear 02-Substantial/maximal assistance - Mobility A. Roll left and right 04-Supervision or touching assistance B. Sit to lying 04-Supervision or touching assistance C. Lying to sitting on side of bed 04-Supervision or touching assistance D. Sit to stand 03-Partial/moderate assistance E. Chair/xya-no-hjfgl transfer 03-Partial/moderate assistance F. Toilet transfer 03-Partial/moderate assistance G. Car transfer 10-Not attempted due to environmental limitations I. Walk 10 feet 88-Not attempted due to medical condition or safety concerns J. Walk 50 feet with two turns 88-Not attempted due to medical condition or safety concerns K. Walk 150 feet 88-Not attempted due to medical condition or safety concerns L. Walking 10 feet on uneven surfaces 88-Not attempted due to medical condition or safety concerns M. 1 step (curb) 88-Not attempted due to medical condition or safety concerns N. 4 steps 88-Not attempted due to medical condition or safety concerns O. 12 steps 88-Not attempted due to medical condition or safety concerns P. Picking up object 88-Not attempted due to medical condition or safety concerns R. Wheel 50 feet with two turns 03-Partial/moderate assistance S. Wheel 150 feet 04-Supervision or touching assistance - Bladder and Bowel Bladder continence 0-Always continent Bowel continence 0-Always continent - Endurance Poor - Balance Poor - Safety Awareness Poor CURRENT FUNC. DEFICITS: Self-Care, Mobility, Endurance, Balance, and Safety Awareness MEDICATIONS: - Other See attached MAR (Medication Administration Record) ASSESSMENT: Pt. is a 41 yo Right-handed white female.On 05/01/2021 Pt. presented to [facility] with sudden onset of right-side weakness.On 05/01/2021 she was admitted to [facility] with diagnosis Clinical L brain cva with residual R body hemiparesis.Her impairment category is [facility] 01 - Right Body (Left Brain) (01.2).Pre-morbidly, Pt. was independent/mod-I in Locomotion, Safe ty Awareness, Transfers Control, Sphincter Control, and Social Cognition; and she had good Balance, S elf-Care, and Communication.Currently, she has deficits of Locomotion, Safety Awareness, Balance, Tra nsfers Control, Self-Care, Communication, and Endurance.Pt. is now referred to [facility] for acute in-patient rehabilitation in order to maximize patient's functional independenc e in activities of daily living, strength, ROM, and mobility.- Rehab Goal Patient has realistic goal of being discharged at assistance level 7-Ind to reside at Home with Fami ly/Relatives. for Dementia, TBI, Stroke, or others - Physical Therapy Gait dysfunction - to improve, our physical therapists will perform initial evaluation of pt's status upon admission and devise an individualized program for Gait Training, and Wheel Chair mobility Inability to transfer - to improve, our physical therapists will perform initial evaluation of pt's s tatus upon admission and devise an individualized program for Bed mobility Need for home safety evaluation - to improve, our physical therapists will perform initial evaluation of pt's status upon admission and devise an individualized program for Home Evaluation Need in caregiver upon discharge - to improve, our physical therapists will perform initial evaluatio n of pt's status upon admission and devise an individualized program for Caregiver Training New precaution - to improve, our physical therapists will perform initial evaluation of pt's status u hilary admission and devise an individualized program for Patient precaution education Edema - to improve, our physical therapists will perform initial evaluation of pt's status upon admi ssion and devise an individualized program for Elevation Training, and Lymphedema Therapy Poor balance - to improve, our physical therapists will perform initial evaluation of pt's status upo n admission and devise an individualized program for Balance Training Poor endurance - to improve, our physical therapists will perform initial evaluation of pt's status u hilary admission and devise an individualized program for Endurance Training Weakness - to improve, our physical therapists will perform initial evaluation of pt's status upon ad mission and devise an individualized program for Aquatic Therapy, Neuromuscular Reeducation, and Stre ngthening Achieving independence - to improve, our physical therapists will perform initial evaluation of pt's status upon admission and devise an individualized program for Community Reintegration Activities - Occupational Therapy ADL deficits - to improve, our occupation therapists will perform initial evaluation of pt's status u hilary admission and devise an individualized program for Bathing, Bed mobility, Community Reintegration , Cooking, Dressing, Eating, Fine Motor Skills, Grooming, Homemaking, Kitchen Mobility, Laundry, Jennifer ent Education, Safety Awareness, Splinting - Positioning, Transfers(Toilet, Tub, Shower), and Wheel C hair Management Need for acute care registered nurse - to improve, our occupation therapists will perform initial evaluation of pt's s tatus upon admission and devise an individualized program for Caregiver Training Weakness - to improve, our occupation therapists will perform initial evaluation of pt's status upon admission and devise an individualized program for Aquatic Therapy, Balance, Endurance, UE ROM, and U E strengthening MEDICAL PLAN: - Diet Type Start Heart Healthy - Diet - Liquid Texture Start Regular - Tube Feed Start N/A - Bladder care per protocol - Weight Bearing Precaution WBAT right LE - Fall Precaution Bed alarm TABS alarm Wheel chair alarm - Skin care per protocol - Other See attached MAR (Medication Administration Record) - Diet - Solid Texture Regular - Shower shower DISCHARGE PLAN: - Estimated Length of Stay (days) 14. - Consensus on plan Discharge plan has been discussed with primary caregiver. Patient/Family is in agreement with the justyn n. Primary caregiver is in agreement with the plan. - Patient/Family Goals Return home independently. - Planned Living Setting Upon Discharge Home, to live with Family/Relatives. Transitional Living. 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
--- NOTE | 2021-05-05 17:47 | PAPE ---
POST ADMISSION PHYSICIAN EVALUATION PATIENT: [facility] MR# [id number] REFERRING DOCTOR Dr. 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 Myron Morton M.D. ADMISSION DIAGNOSIS: Clinical L brain cva with residual R body hemiparesis ONSET DATE 05/01/2021 POST-ADMISSION FUNCTIONAL/MEDICAL STATUS: - Bladder Same accident frequency: 7-Ind - No accidents in the past 7 days - Bowel Same accident frequency: 7-Ind - No accidents in the past 7 days - Walking Same score based on distance walked: 0(N/A) - Wheelchair Same score based on distance traveled: 0(N/A) Same score based on distance traveled: 3(>=150ft) STATUS CHANGE EVALUATION: No change in Functional or Medical Status is identified compared with Pre-Admission screening. PATIENT NEEDS CLOSE MEDICAL SUPERVISION BY A REHABILITATION PHYSICIAN FOR: Coordination of Treatment Team Medical and Co-Morbidity Management Pain Management Bowel and Bladder Management PATIENT REQUIRES 24X7 REHAB NURSING FOR MEDICAL AND FUNCTIONAL MGT. OF THE FOLLOWING DEFICITS: Disease Management Medication Management Patient/Family Education Providing Safe Environment PATIENT REQUIRES INTENSIVE, COORDINATED INTERDISCIPLINARY APPROACH TO REHAB: Arranging Home Equipment/Services Discharge Planning Family Intervention/Training Airway Traffic Controller/Case Management LIST OF IDENTIFIED AND POTENTIAL PROBLEMS: Alteration in leisure activities Bladder, Incontinence Bowel, Incontinence Falls, Actual or Potential Infection, Actual or Potential Mobility Impaired Pain, Alteration in Comfort Self Care Deficit Skin Integrity, Actual or Potential Urinary Tract Infection (UTI), Actual or Potential RISK FOR COMPLICATIONS - CVA pt has history of CVA. Will monitor blood pressure and manage with medication. - UTI Monitor for frequency, burning, discomfort, or incontinence. - Falls Educated pt on fall prevention strategies to reduce/eliminate fall risk. Patient will be evaluated fo r Fall Precautions and will be placed on Fall Precautions as indicated per protocol. - Pain Clinical staff will assess patient's pain level every shift per protocol to monitor for pain manageme nt effectiveness. Educate patient on pain management strategies. Medications will be given and the pa in level reassessed. Clinical Staff may employ other methods such as: massage, distraction, decrease stimulus, etc. as needed. - Skin Breakdown Nursing will assess skin daily using assessment tool and will place on Skin Breakdown Precautions as Indicated per protocol. - DVT PTT and INR will be monitored to effectively mitigate risk for development of DVT or PE while here. M edications will be administered as per MD. INTERVENTIONS - Hypothyroid Administer Meds as per MD. - Seizure Disorder Administer Meds as per MD. - Migraines Monitor and administer medications as per MD. - Hyperlipidemia Administer medications as per MD. - Rheumatoid Arthritis Administer medications as per MD. - Lupus administer medications as per MD. - Depression Monitor patient for depression and treat as neccesary. - Constipation Monitor and manage appropriately via conservative and medications as needed. PATIENT COULD BE AT RISK FOR COMPLICATIONS FROM ADVERSE MEDICAL CONDITIONS DUE TO HIS/HER COMORBIDITI ES AND THE RIGORS OF THE INTENSIVE REHABILLITATION PROGRAM. METHODS OR INTERVENTIONS TO AVOID COMPLIC ATIONS INCLUDE: - Bleeding Stroke patients assessed for lethargy or change in status. - Infection Clinical staff to assess and manage the signs and symptoms of infection including fever, redness, war mth, etc. - Urinary Tract Infection - Aspiration Clinical staff will assess and manage coughing, drooling, congestion. - Falls Patient will be evaluated for Fall Precautions and will be placed on Fall Precautions as indicated pe r protocol. - Skin Breakdown Nursing will assess skin daily using assessment tool and will place on Skin Breakdown Precautions as indicated per protocol. - Pain Clinical staff may employ non-medication methods such as massage, distraction, decrease stimulus, etc . as needed. Clinical staff will assess patient's pain level every shift per protocol to assess and e nsure pain management effectiveness. Medications will be given and the pain level re-assessed. PRELIMINARY PLAN OF CARE: - Physical Therapy Patient needs Physical Therapy for a daily minimum of 1.5 hours at least 5 out of 7 days, to improve: Mobility, Strengthening, Transfers, Stretching, ROM, Endurance, Ability to manage stairs, Gait, and Balance. - Speech Therapy Patient needs Speech Therapy for a daily minimum of 0.5 hours at least 5 out of 7 days, to improve: S wallowing, Cognition, Language Skills, and Compensatory Strategies. - Rehabilitation Nursing Patient requires 24x7 Rehabilitation Nursing for: Pain Issues, Identifying and preventing risk factor s, Monitoring and reporting current medical conditions, Assisting with ambulation and transfer, Jesus ting with all ADL-s, Teaching patients about disease process and medications, Family teaching, Provid ing safe environment, Bowel and Bladder Issues, Skin Integrity, and Medication Management. Patient needs Airway Traffic Controller and/or Case Management for: Discharge Planning, Arranging Home Equipmen t or Services, and Family Interventions. - Dietary and Nutrition Services Patient needs Dietary and Nutrition Services for: Adequate Nutrition, Nutritional Supplements, and Nu tritional Education. - Occupational Therapy Patient needs Occupational Therapy for a daily minimum of 1.5 hours at least 5 out of 7 days, to impr ove Activities of Daily Living, including: Eating, Grooming, Bathing, Dressing, Toileting, Toilet Tra nsfers, Community Reintegration, Higher functional activities, Adaptive Equipment, Splinting, Househo ld Tasks, and Other activities as determined. QI SCORES: - Self-Care A. Eating 05-Setup or clean-up assistance B. Oral hygiene 05-Setup or clean-up assistance C. Toileting hygiene 02-Substantial/maximal assistance E. Shower/bathe self 02-Substantial/maximal assistance F. Upper body dressing 02-Substantial/maximal assistance G. Lower body dressing 02-Substantial/maximal assistance H. Putting on/taking off footwear 02-Substantial/maximal assistance - Mobility A. Roll left and right 04-Supervision or touching assistance B. Sit to lying 04-Supervision or touching assistance C. Lying to sitting on side of bed 04-Supervision or touching assistance D. Sit to stand 03-Partial/moderate assistance E. Chair/kjb-eo-dhmkx transfer 03-Partial/moderate assistance F. Toilet transfer 03-Partial/moderate assistance G. Car transfer 10-Not attempted due to environmental limitations I. Walk 10 feet 88-Not attempted due to medical condition or safety concerns J. Walk 50 feet with two turns 88-Not attempted due to medical condition or safety concerns K. Walk 150 feet 88-Not attempted due to medical condition or safety concerns L. Walking 10 feet on uneven surfaces 88-Not attempted due to medical condition or safety concerns M. 1 step (curb) 88-Not attempted due to medical condition or safety concerns N. 4 steps 88-Not attempted due to medical condition or safety concerns O. 12 steps 88-Not attempted due to medical condition or safety concerns P. Picking up object 88-Not attempted due to medical condition or safety concerns R. Wheel 50 feet with two turns 03-Partial/moderate assistance S. Wheel 150 feet 04-Supervision or touching assistance - Bladder and Bowel Bladder continence 0-Always continent Bowel continence 0-Always continent - Endurance Poor - Balance Poor - Safety Awareness Poor POTENTIAL FUNCTIONAL GOALS FOR PATIENT TO ACHIEVE BY DISCHARGE: - Safety Precaution Patient will remain free from falls or injury at time of discharge. - Bed Mobility Patient will perform bed mobility at 4-Cherelle level of assistance. - Transfers Patient will complete transfers from bed to chair at 4-Cherelle level of assistance. - Mobility Patient will ambulate 150 ft with 4-Cherelle level of assistance with RW. PATIENT REHAB POTENTIAL Pita NOLAN is able and expected to receive 3 hours of individualized therapy daily on at least 5 of harriet ry 7 days Pita NOLAN's prognosis for significant practical improvement within a reasonable period of time appears Good Expected level of measurable improvement will be of a practical value to Pita NOLAN's functional capaci ty or adaptations to impairments Has a viable Discharge Plan Medically appropriate; condition is sufficiently stable to participate in intensive rehab program DISCHARGE PLAN: - Estimated Length of Stay (days) 14. - Consensus on plan Discharge plan has been discussed with primary caregiver. Patient/Family is in agreement with the justyn n. Primary caregiver is in agreement with the plan. - Patient/Family Goals Return home independently. - Planned Living Setting Upon Discharge Home, to live with Family/Relatives. Transitional Living. CONCLUSION ON REHABILITATION NECESSITY: I have evaluated patient's pre-admission functional status and, comparing it to the patient's post-ad mission functional status now, I conclude that the pre-admission assessment was accurate. Patient's c ondition on admission supports the medical necessity of admission to [facility]. It is safe to proceed with patient's therapy program. 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
[2021-05-05] MEDS: MAGNESIUM OXIDE 400 MG TAB PO SCH (19:34)
[2021-05-05] MEDS: TRAZODONE 50 MG TABLET PO SCH (20:40)
[2021-05-05] MEDS ORDERED: TOPIRAMATE 25 MG TAB PO SCH (21:00)
[2021-05-05] MEDS ORDERED: ROSUVASTATIN 10 MG TAB PO SCH (21:00)
[2021-05-06] MEDS: LEVOTHYROXINE SOD 0.1 MG TAB PO SCH (07:07)
[2021-05-06] MEDS: ASPIRIN EC 81 MG TAB PO SCH (07:34)
[2021-05-06] MEDS: FOLIC ACID 1 MG TABLET PO SCH (07:34)
[2021-05-06] MEDS: levETIRAcetam 500 MG TAB PO SCH ×2 (07:34→20:41)
[2021-05-06] MEDS: GABAPENTIN 100 MG CAP PO SCH ×2 (07:35→20:39)
[2021-05-06] MEDS: MAGNESIUM OXIDE 400 MG TAB PO SCH ×2 (07:35→20:39)
[2021-05-06] MEDS: TOPIRAMATE 25 MG TAB PO SCH (07:35)
[2021-05-06] MEDS: HYDROXYCHLOROQUINE 200MG TAB PO SCH (07:36)
[2021-05-06] MEDS: ROSUVASTATIN 10 MG TAB PO SCH (07:36)
[2021-05-06] MEDS: CLOPIDOGREL 75 MG TABLET PO SCH (07:36)
[2021-05-06] MEDS: LINACLOTIDE PO SCH (07:37)
[2021-05-06] MEDS: ENOXAPARIN 40 MG/0.4 ML SQ SCH (07:37)
[2021-05-06] MEDS: NICOTINE 14 MG/PAT TD SCH (07:37)
[2021-05-06] MEDS: MIDODRINE HCL 5 MG TABLET PO SCH ×3 (07:38→20:39)
[2021-05-06] MEDS: LACOSAMIDE 50 MG TABLET PO SCH ×2 (07:38→20:00)
[2021-05-06] MEDS: TRAZODONE 50 MG TABLET PO SCH (20:39)
[2021-05-06] MEDS: ACETAMINOPHEN 500 MG TAB PO PRN (20:39)
[2021-05-07] MEDS: LEVOTHYROXINE SOD 0.1 MG TAB PO SCH (06:41)
[2021-05-07] MEDS: ENOXAPARIN 40 MG/0.4 ML SQ SCH (06:43)
[2021-05-07] MEDS: LINACLOTIDE PO SCH (08:00)
[2021-05-07] MEDS: NICOTINE 14 MG/PAT TD SCH (08:22)
[2021-05-07] MEDS: GABAPENTIN 100 MG CAP PO SCH ×2 (08:22→19:52)
[2021-05-07] MEDS: levETIRAcetam 500 MG TAB PO SCH ×2 (08:23→19:52)
[2021-05-07] MEDS: MIDODRINE HCL 5 MG TABLET PO SCH ×3 (08:23→19:53)
[2021-05-07] MEDS: ROSUVASTATIN 10 MG TAB PO SCH (08:24)
[2021-05-07] MEDS: TOPIRAMATE 25 MG TAB PO SCH (08:24)
[2021-05-07] MEDS: ASPIRIN EC 81 MG TAB PO SCH (08:24)
[2021-05-07] MEDS: CLOPIDOGREL 75 MG TABLET PO SCH (08:24)
[2021-05-07] MEDS: FOLIC ACID 1 MG TABLET PO SCH (08:24)
[2021-05-07] MEDS: MAGNESIUM OXIDE 400 MG TAB PO SCH ×2 (08:25→19:53)
[2021-05-07] MEDS: HYDROXYCHLOROQUINE 200MG TAB PO SCH (08:25)
[2021-05-07] MEDS: LACOSAMIDE 50 MG TABLET PO SCH ×2 (08:33→19:54)
[2021-05-07] MEDS: LIDOCAINE 4% PATCH TOP SCH (16:50)
[2021-05-07] MEDS ORDERED: BISACODYL 10 MG RECTAL SUPP PR PRN (18:09)
--- NOTE | 2021-05-07 18:11 | R.PN ---
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 Pt denied any Shortness of Breath. Ambulated 750' with a rolling walker and independence. Self-propelled wheelchair 250' with independen ce. Up and down 18 steps with standby assistance CBC with differential is essentially normal except Hgb of 11.5, prealbumin 17.3. UA shows bacteria 20 -50, esterase trace.. VITAL SIGNS Temperature: 97.0 F SBP/DBP: 107/67 Pulse: 66 Resp: 15 MEDICATION ALLERGIES: No Known Drug Allergies (NKDA) ENVIRONMENTAL ALLERGIES: - Substance Allergies None Known - Other Allergies None Known NURSING: - Shower allowing shower - Bladder care per protocol - Skin care per protocol PRECAUTIONS: - Weight Bearing Precaution WBAT right LE - Fall Precaution Bed alarm TABS alarm Wheel chair alarm ACTIVITIES OOB only with supervision THERAPIES: - Dietary and Nutrition Adequate Nutrition. Nutritional Education. Nutritional Supplements. - Occupational Therapy Cognitive Retraining. ADL Training. Evaluate and Treat. Patient/Family Education. UE Strengthening. A daptive Equipment. Transfer Training. Visual Perceptual Training. - Speech Therapy Cognitive Training. Expressive Language Skills. Memory Strategies. Receptive Language Skills. Speech Intelligibility Training. - Physical Therapy Evaluate and Treat. Balance Training. Gait Training. Transfer Training. LE Strengthening. Mobility Tr aining. Wheelchair Management. LE ROM. Safety Awareness. Patient/Family Education. PHYSICAL EXAM - Gen Alert and awake Lying in bed No apparent distress Oriented to: person, time, and place - Skin No skin breakdown. Normacephalic - Eyes No abnormalities - ENMT No abnormalities - Neck No abnormalities - CVS RRR - Chest No abnormalities - Abd Soft - GI Non distended Deferred - No abnormalities - Ext No significant edema - MSK 3+/5 weakness in right upper and lower extremities - Neuro 3+/5 weakness in right upper and lower extremities and stuttering speech. Mild right facial weakness. - Psych No abnormalities ASSESSMENT: Pt. is a 41 yo Right-handed white female.On 05/01/2021 Pt. presented to [facility] with sudden onset of right-side weakness.On 05/01/2021 she was admitted to [facility] with diagnosis Clinical L brain cva with residual R body hemiparesis.Her impairment category is St roke 01 - Right Body (Left Brain) (01.2).Pre-morbidly, Pt. was independent/mod-I in Locomotion, Safe ty Awareness, Transfers Control, Sphincter Control, and Social Cognition; and she had good Balance, S elf-Care, and Communication.Currently, she has deficits of Locomotion, Safety Awareness, Balance, Tra nsfers Control, Self-Care, Communication, and Endurance.Pt. is now referred to [facility] for acute in-patient rehabilitation in order to maximize patient's functional independenc e in activities of daily living, strength, ROM, and mobility.- Rehab Goal Patient has realistic goal of being discharged at assistance level 7-Ind to reside at Home with Fami ly/Relatives. MDM/PLAN: - Physical Therapy Gait dysfunction - to improve, our physical therapists will perform initial evaluation of pt's statu s upon admission and devise an individualized program for Gait Training, and Wheel Chair mobility Inability to transfer - to improve, our physical therapists will perform initial evaluation of pt's status upon admission and devise an individualized program for Bed mobility Need for home safety evaluation - to improve, our physical therapists will perform initial evaluatio n of pt's status upon admission and devise an individualized program for Home Evaluation Need in caregiver upon discharge - to improve, our physical therapists will perform initial evaluati on of pt's status upon admission and devise an individualized program for Caregiver Training New precaution - to improve, our physical therapists will perform initial evaluation of pt's status upon admission and devise an individualized program for Patient precaution education Edema - to improve, our physical therapists will perform initial evaluation of pt's status upon admis sukhi and devise an individualized program for Elevation Training, and Lymphedema Therapy Poor balance - to improve, our physical therapists will perform initial evaluation of pt's status up on admission and devise an individualized program for Balance Training Poor endurance - to improve, our physical therapists will perform initial evaluation of pt's status upon admission and devise an individualized program for Endurance Training Weakness - to improve, our physical therapists will perform initial evaluation of pt's status upon a dmission and devise an individualized program for Aquatic Therapy, Neuromuscular Reeducation, and Str engthening Achieving independence - to improve, our physical therapists will perform initial evaluation of pt's status upon admission and devise an individualized program for Community Reintegration Activities - Occupational Therapy ADL deficits - to improve, our occupation therapists will perform initial evaluation of pt's status upon admission and devise an individualized program for Bathing, Bed mobility, Community Reintegratio n, Cooking, Dressing, Eating, Fine Motor Skills, Grooming, Homemaking, Kitchen Mobility, Laundry, Pat ient Education, Safety Awareness, Splinting - Positioning, Transfers(Toilet, Tub, Shower), and Wheel Chair Management Need for healthcare interpreter - to improve, our occupation therapists will perform initial evaluation of pt's status upon admission and devise an individualized program for Caregiver Training Weakness - to improve, our occupation therapists will perform initial evaluation of pt's status upon admission and devise an individualized program for Aquatic Therapy, Balance, Endurance, UE ROM, and UE strengthening - Other See attached MAR (Medication Administration Record) - Diet Type Continue Heart Healthy - Diet - Liquid Texture Continue Regular - Tube Feed Continue N/A - Bladder care per protocol - Weight Bearing Precaution WBAT right LE - Fall Precaution Bed alarm TABS alarm Wheel chair alarm - Skin care per protocol - Diet - Solid Texture Continue Regular - Shower allowing shower for Dementia, TBI, Stroke, or others FUNCTIONAL STATUS: UPDATED AT WEEKLY TEAM CONFERENCE - Bladder Same accident frequency: 7-Ind - No accidents in the past 7 days - Bowel Same accident frequency: 7-Ind - No accidents in the past 7 days - Walking Same score based on distance walked: 0(N/A) - Wheelchair Same score based on distance traveled: 0(N/A) Same score based on distance traveled: 3(>=150ft) FUNCTIONAL STATUS: - Self-Care A. Eating Ind B. Grooming Cherelle C. Bathing modA D. Dressing - Upper Cherelle E. Dressing - Lower modA F. Toileting modA - Sphincter Control G. Bladder control Macy H. Bowel control Macy - Transfers Control I. Bed/Chair/Wheelchair modA J. Toilet modA K. Tub/Shower modA - Locomotion L. Walk/Wheelchair (B) modA M. Stairs maxA - Communication N. Comprehension (B) Macy O. Expression (B) Macy - Social Cognition P. Social Interaction Macy Q. Problem Solving Macy R. Memory Macy - Endurance Fair - Balance Fair - Safety Awareness Fair QI SCORES: - Self-Care A. Eating 05-Setup or clean-up assistance B. Oral hygiene 05-Setup or clean-up assistance C. Toileting hygiene 02-Substantial/maximal assistance E. Shower/bathe self 02-Substantial/maximal assistance F. Upper body dressing 02-Substantial/maximal assistance G. Lower body dressing 02-Substantial/maximal assistance H. Putting on/taking off footwear 02-Substantial/maximal assistance - Mobility A. Roll left and right 04-Supervision or touching assistance B. Sit to lying 04-Supervision or touching assistance C. Lying to sitting on side of bed 04-Supervision or touching assistance D. Sit to stand 03-Partial/moderate assistance E. Chair/[id number] transfer 03-Partial/moderate assistance F. Toilet transfer 03-Partial/moderate assistance G. Car transfer 10-Not attempted due to environmental limitations I. Walk 10 feet 88-Not attempted due to medical condition or safety concerns J. Walk 50 feet with two turns 88-Not attempted due to medical condition or safety concerns K. Walk 150 feet 88-Not attempted due to medical condition or safety concerns L. Walking 10 feet on uneven surfaces 88-Not attempted due to medical condition or safety concerns M. 1 step (curb) 88-Not attempted due to medical condition or safety concerns N. 4 steps 88-Not attempted due to medical condition or safety concerns O. 12 steps 88-Not attempted due to medical condition or safety concerns P. Picking up object 88-Not attempted due to medical condition or safety concerns R. Wheel 50 feet with two turns 03-Partial/moderate assistance S. Wheel 150 feet 04-Supervision or touching assistance - Bladder and Bowel Bladder continence 0-Always continent Bowel continence 0-Always continent - Endurance Poor - Balance Poor - Safety Awareness Poor CURRENT FUNC. DEFICITS: Self-Care, Mobility, Endurance, Balance, and Safety Awareness SIGNATURE PANEL: ([facility])
[2021-05-07] MEDS: TRAZODONE 50 MG TABLET PO SCH (19:52)
[2021-05-07] MEDS: DOCUSATE NA/SENNA CONC 1 TAB PO PRN (19:54)
[2021-05-07] MEDS ORDERED: CRANBERRY FRUIT EXTRACT 400 MG CAP PO SCH (20:00)
[2021-05-07] MEDS: TRAMADOL HCL 50 MG TAB PO PRN (20:02)
[2021-05-08 05:10] LABS: Thyroid Stimulating Hormone 31.7 uIU/mL (0.360-3.740)
[2021-05-08] MEDS: LEVOTHYROXINE SOD 0.1 MG TAB PO SCH (06:52)
[2021-05-08] MEDS ORDERED: LEVOTHYROXINE SOD 0.1 MG TAB PO ONE (07:00)
[2021-05-08] MEDS: FOLIC ACID 1 MG TABLET PO SCH (08:00)
[2021-05-08] MEDS: LINACLOTIDE PO SCH (08:00)
[2021-05-08] MEDS: ROSUVASTATIN 10 MG TAB PO SCH (08:00)
[2021-05-08] MEDS: ENOXAPARIN 40 MG/0.4 ML SQ SCH (08:00)
[2021-05-08] MEDS: TOPIRAMATE 25 MG TAB PO SCH (08:00)
[2021-05-08] MEDS: ASPIRIN EC 81 MG TAB PO SCH (08:00)
[2021-05-08] MEDS: CLOPIDOGREL 75 MG TABLET PO SCH (08:00)
[2021-05-08] MEDS: MAGNESIUM OXIDE 400 MG TAB PO SCH ×2 (08:00→19:44)
[2021-05-08] MEDS: levETIRAcetam 500 MG TAB PO SCH ×2 (08:00→19:42)
[2021-05-08] MEDS: CRANBERRY FRUIT EXTRACT 400 MG CAP PO SCH ×2 (08:00→19:42)
[2021-05-08] MEDS: GABAPENTIN 100 MG CAP PO SCH ×2 (08:01→19:44)
[2021-05-08] MEDS: MIDODRINE HCL 5 MG TABLET PO SCH ×3 (08:01→19:43)
[2021-05-08] MEDS: LACOSAMIDE 50 MG TABLET PO SCH ×2 (08:01→19:44)
[2021-05-08] MEDS: LIDOCAINE 4% PATCH TOP SCH (08:02)
[2021-05-08] MEDS: NICOTINE 14 MG/PAT TD SCH (08:02)
[2021-05-08] MEDS: HYDROXYCHLOROQUINE 200MG TAB PO SCH (08:03)
[2021-05-08] MEDS: TRAMADOL HCL 50 MG TAB PO PRN ×2 (14:30→19:48)
[2021-05-08] MEDS: TRAZODONE 50 MG TABLET PO SCH (19:44)
[2021-05-09] MEDS: LEVOTHYROXINE SOD 0.1 MG TAB PO SCH (06:40)
[2021-05-09] MEDS: ENOXAPARIN 40 MG/0.4 ML SQ SCH (06:43)
[2021-05-09] MEDS: LACOSAMIDE 50 MG TABLET PO SCH ×2 (08:00→20:37)
[2021-05-09] MEDS: LINACLOTIDE PO SCH (08:00)
[2021-05-09] MEDS: NICOTINE 14 MG/PAT TD SCH (08:35)
[2021-05-09] MEDS: LIDOCAINE 4% PATCH TOP SCH (08:35)
[2021-05-09] MEDS: levETIRAcetam 500 MG TAB PO SCH ×2 (08:43→20:36)
[2021-05-09] MEDS: CLOPIDOGREL 75 MG TABLET PO SCH (08:44)
[2021-05-09] MEDS: CRANBERRY FRUIT EXTRACT 400 MG CAP PO SCH ×2 (08:44→20:37)
[2021-05-09] MEDS: MAGNESIUM OXIDE 400 MG TAB PO SCH ×2 (08:45→20:37)
[2021-05-09] MEDS: MIDODRINE HCL 5 MG TABLET PO SCH ×3 (08:46→20:35)
[2021-05-09] MEDS: ROSUVASTATIN 10 MG TAB PO SCH (08:46)
[2021-05-09] MEDS: FOLIC ACID 1 MG TABLET PO SCH (08:46)
[2021-05-09] MEDS: ASPIRIN EC 81 MG TAB PO SCH (08:46)
[2021-05-09] MEDS: GABAPENTIN 100 MG CAP PO SCH ×2 (08:47→20:35)
[2021-05-09] MEDS: TOPIRAMATE 25 MG TAB PO SCH (08:49)
[2021-05-09] MEDS: HYDROXYCHLOROQUINE 200MG TAB PO SCH (08:52)
--- NOTE | 2021-05-09 17:43 | R.PN ---
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 Pt denied any Shortness of Breath. Ambulated 351' with a rolling walker and modified independence. Self-propelled wheelchair 1000' with independence. CBC with differential is essentially normal except Hgb of 11.5, prealbumin 17.3. UA shows bacteria 20 -50, esterase trace.. TSH is very elevated to 31.7, Free T4 0.83. Synthroid increased to 0.4 mg daily. VITAL SIGNS Temperature: 97.0 F SBP/DBP: 108/65 Pulse: 83 Resp: 16 MEDICATION ALLERGIES: No Known Drug Allergies (NKDA) ENVIRONMENTAL ALLERGIES: - Substance Allergies None Known - Other Allergies None Known NURSING: - Shower allowing shower - Bladder care per protocol - Skin care per protocol PRECAUTIONS: - Weight Bearing Precaution WBAT right LE - Fall Precaution Bed alarm TABS alarm Wheel chair alarm ACTIVITIES OOB only with supervision THERAPIES: - Dietary and Nutrition Adequate Nutrition. Nutritional Education. Nutritional Supplements. - Occupational Therapy Cognitive Retraining. ADL Training. Evaluate and Treat. Patient/Family Education. UE Strengthening. A daptive Equipment. Transfer Training. Visual Perceptual Training. - Speech Therapy Cognitive Training. Expressive Language Skills. Memory Strategies. Receptive Language Skills. Speech Intelligibility Training. - Physical Therapy Evaluate and Treat. Balance Training. Gait Training. Transfer Training. LE Strengthening. Mobility Tr aining. Wheelchair Management. LE ROM. Safety Awareness. Patient/Family Education. PHYSICAL EXAM - Gen Alert and awake Lying in bed No apparent distress Oriented to: person, time, and place - Skin No skin breakdown. Normacephalic - Eyes No abnormalities - ENMT No abnormalities - Neck No abnormalities - CVS RRR - Chest No abnormalities - Abd Soft - GI Non distended Deferred - No abnormalities - Ext No significant edema - MSK 3+/5 weakness in right upper and lower extremities - Neuro 3+/5 weakness in right upper and lower extremities and stuttering speech. Mild right facial weakness. - Psych No abnormalities ASSESSMENT: Pt. is a 41 yo Right-handed white female.On 05/01/2021 Pt. presented to [facility] with sudden onset of right-side weakness.On 05/01/2021 she was admitted to [facility] with diagnosis Clinical L brain cva with residual R body hemiparesis.Her impairment category is St roke 01 - Right Body (Left Brain) (01.2).Pre-morbidly, Pt. was independent/mod-I in Locomotion, Safe ty Awareness, Transfers Control, Sphincter Control, and Social Cognition; and she had good Balance, S elf-Care, and Communication.Currently, she has deficits of Locomotion, Safety Awareness, Balance, Tra nsfers Control, Self-Care, Communication, and Endurance.Pt. is now referred to [facility] for acute in-patient rehabilitation in order to maximize patient's functional independenc e in activities of daily living, strength, ROM, and mobility.- Rehab Goal Patient has realistic goal of being discharged at assistance level 7-Ind to reside at Home with Fami ly/Relatives. MDM/PLAN: - Physical Therapy Gait dysfunction - to improve, our physical therapists will perform initial evaluation of pt's statu s upon admission and devise an individualized program for Gait Training, and Wheel Chair mobility Inability to transfer - to improve, our physical therapists will perform initial evaluation of pt's status upon admission and devise an individualized program for Bed mobility Need for home safety evaluation - to improve, our physical therapists will perform initial evaluatio n of pt's status upon admission and devise an individualized program for Home Evaluation Need in caregiver upon discharge - to improve, our physical therapists will perform initial evaluati on of pt's status upon admission and devise an individualized program for Caregiver Training New precaution - to improve, our physical therapists will perform initial evaluation of pt's status upon admission and devise an individualized program for Patient precaution education Edema - to improve, our physical therapists will perform initial evaluation of pt's status upon admi ssion and devise an individualized program for Elevation Training, and Lymphedema Therapy Poor balance - to improve, our physical therapists will perform initial evaluation of pt's status up on admission and devise an individualized program for Balance Training Poor endurance - to improve, our physical therapists will perform initial evaluation of pt's status upon admission and devise an individualized program for Endurance Training Weakness - to improve, our physical therapists will perform initial evaluation of pt's status upon a dmission and devise an individualized program for Aquatic Therapy, Neuromuscular Reeducation, and Str engthening Achieving independence - to improve, our physical therapists will perform initial evaluation of pt's status upon admission and devise an individualized program for Community Reintegration Activities - Occupational Therapy ADL deficits - to improve, our occupation therapists will perform initial evaluation of pt's status upon admission and devise an individualized program for Bathing, Bed mobility, Community Reintegratio n, Cooking, Dressing, Eating, Fine Motor Skills, Grooming, Homemaking, Kitchen Mobility, Laundry, Pat ient Education, Safety Awareness, Splinting - Positioning, Transfers(Toilet, Tub, Shower), and Wheel Chair Management Need for nursing care partner - to improve, our occupation therapists will perform initial evaluation of pt's status upon admission and devise an individualized program for Caregiver Training Weakness - to improve, our occupation therapists will perform initial evaluation of pt's status upon admission and devise an individualized program for Aquatic Therapy, Balance, Endurance, UE ROM, and UE strengthening - Other See attached MAR (Medication Administration Record) - Diet Type Continue Heart Healthy - Diet - Liquid Texture Continue Regular - Tube Feed Continue N/A - Bladder care per protocol - Weight Bearing Precaution WBAT right LE - Fall Precaution Bed alarm TABS alarm Wheel chair alarm - Skin care per protocol - Diet - Solid Texture Continue Regular - Shower allowing shower for Dementia, TBI, Stroke, or others FUNCTIONAL STATUS: UPDATED AT WEEKLY TEAM CONFERENCE - Bladder Same accident frequency: 7-Ind - No accidents in the past 7 days - Bowel Same accident frequency: 7-Ind - No accidents in the past 7 days - Walking Same score based on distance walked: 0(N/A) - Wheelchair Same score based on distance traveled: 0(N/A) Same score based on distance traveled: 3(>=150ft) FUNCTIONAL STATUS: - Self-Care A. Eating Ind B. Grooming Cherelle C. Bathing modA D. Dressing - Upper Cherelle E. Dressing - Lower modA F. Toileting modA - Sphincter Control G. Bladder control Macy H. Bowel control Macy - Transfers Control I. Bed/Chair/Wheelchair modA J. Toilet modA K. Tub/Shower modA - Locomotion L. Walk/Wheelchair (B) modA M. Stairs maxA - Communication N. Comprehension (B) Macy O. Expression (B) Macy - Social Cognition P. Social Interaction Macy Q. Problem Solving Macy R. Memory Macy - Endurance Fair - Balance Fair - Safety Awareness Fair QI SCORES: - Self-Care A. Eating 05-Setup or clean-up assistance B. Oral hygiene 05-Setup or clean-up assistance C. Toileting hygiene 02-Substantial/maximal assistance E. Shower/bathe self 02-Substantial/maximal assistance F. Upper body dressing 02-Substantial/maximal assistance G. Lower body dressing 02-Substantial/maximal assistance H. Putting on/taking off footwear 02-Substantial/maximal assistance - Mobility A. Roll left and right 04-Supervision or touching assistance B. Sit to lying 04-Supervision or touching assistance C. Lying to sitting on side of bed 04-Supervision or touching assistance D. Sit to stand 03-Partial/moderate assistance E. Chair/rxn-ek-[id number] transfer 03-Partial/moderate assistance F. Toilet transfer 03-Partial/moderate assistance G. Car transfer 10-Not attempted due to environmental limitations I. Walk 10 feet 88-Not attempted due to medical condition or safety concerns J. Walk 50 feet with two turns 88-Not attempted due to medical condition or safety concerns K. Walk 150 feet 88-Not attempted due to medical condition or safety concerns L. Walking 10 feet on uneven surfaces 88-Not attempted due to medical condition or safety concerns M. 1 step (curb) 88-Not attempted due to medical condition or safety concerns N. 4 steps 88-Not attempted due to medical condition or safety concerns O. 12 steps 88-Not attempted due to medical condition or safety concerns P. Picking up object 88-Not attempted due to medical condition or safety concerns R. Wheel 50 feet with two turns 03-Partial/moderate assistance S. Wheel 150 feet 04-Supervision or touching assistance - Bladder and Bowel Bladder continence 0-Always continent Bowel continence 0-Always continent - Endurance Poor - Balance Poor - Safety Awareness Poor CURRENT FUNC. 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
[2021-05-09] MEDS: TRAZODONE 50 MG TABLET PO SCH (20:35)
[2021-05-10 05:11] LABS: Absolute Lymphocytes (CBC) 2.5 K/uL (0.7-4.9); Basophils % 0.6 % (0-1.3); Hematocrit 33.4 % (36.0-45.0); Lymphocytes % 39.1 % (15.3-44.8); MPV 7.9 fL (7.6-11.3); RBC Red Blood Cell Count 3.84 M/uL (3.86-4.86)
[2021-05-10 05:28] LABS: Albumin 3.2 g/dL (3.4-5.0); Magnesium 2.5 mg/dL (1.8-2.4); Phosphorus 4.3 mg/dL (2.5-4.9); Potassium 3.8 mmol/L (3.5-5.1); Prealbumin 16.6 mg/dL (20-40)
[2021-05-10] MEDS: LINACLOTIDE PO SCH (08:00)
[2021-05-10] MEDS: MAGNESIUM OXIDE 400 MG TAB PO SCH ×2 (08:00→20:00)
[2021-05-10] MEDS: LACOSAMIDE 50 MG TABLET PO SCH ×2 (08:00→20:00)
[2021-05-10] MEDS: LIDOCAINE 4% PATCH TOP SCH (09:33)
[2021-05-10] MEDS: NICOTINE 14 MG/PAT TD SCH (09:34)
[2021-05-10] MEDS: TOPIRAMATE 25 MG TAB PO SCH (09:35)
[2021-05-10] MEDS: FOLIC ACID 1 MG TABLET PO SCH (09:35)
[2021-05-10] MEDS: levETIRAcetam 500 MG TAB PO SCH ×2 (09:36→20:57)
[2021-05-10] MEDS: GABAPENTIN 100 MG CAP PO SCH (09:36)
[2021-05-10] MEDS: ROSUVASTATIN 10 MG TAB PO SCH (09:37)
[2021-05-10] MEDS: CRANBERRY FRUIT EXTRACT 400 MG CAP PO SCH ×2 (09:37→20:54)
[2021-05-10] MEDS: MIDODRINE HCL 5 MG TABLET PO SCH ×3 (09:37→20:57)
[2021-05-10] MEDS: CLOPIDOGREL 75 MG TABLET PO SCH (09:37)
[2021-05-10] MEDS: ENOXAPARIN 40 MG/0.4 ML SQ SCH (09:38)
[2021-05-10] MEDS: LEVOTHYROXINE SOD 0.1 MG TAB PO SCH (09:38)
[2021-05-10] MEDS: ASPIRIN EC 81 MG TAB PO SCH (09:38)
[2021-05-10] MEDS: HYDROXYCHLOROQUINE 200MG TAB PO SCH (09:39)
[2021-05-10] MEDS: TRAMADOL HCL 50 MG TAB PO PRN ×2 (14:22→20:54)
--- NOTE | 2021-05-10 18:43 | R.PN ---
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 Pt denied any Shortness of Breath. Ambulated 250' with a rolling walker and modified independence. Self-propelled wheelchair 1000' with independence. CBC with differential is essentially normal except Hgb of 11.6, prealbumin 16.6. UA shows bacteria 20 -50, esterase trace.. TSH is very elevated to 31.7, Free T4 0.83. Synthroid increased to 0.4 mg daily. VITAL SIGNS Temperature: 96.9 F SBP/DBP: 98/64 Pulse: 60 Resp: 16 MEDICATION ALLERGIES: No Known Drug Allergies (NKDA) ENVIRONMENTAL ALLERGIES: - Substance Allergies None Known - Other Allergies None Known NURSING: - Shower allowing shower - Bladder care per protocol - Skin care per protocol PRECAUTIONS: - Weight Bearing Precaution WBAT right LE - Fall Precaution Bed alarm TABS alarm Wheel chair alarm ACTIVITIES OOB only with supervision THERAPIES: - Dietary and Nutrition Adequate Nutrition. Nutritional Education. Nutritional Supplements. - Occupational Therapy Cognitive Retraining. ADL Training. Evaluate and Treat. Patient/Family Education. UE Strengthening. A daptive Equipment. Transfer Training. Visual Perceptual Training. - Speech Therapy Cognitive Training. Expressive Language Skills. Memory Strategies. Receptive Language Skills. Speech Intelligibility Training. - Physical Therapy Evaluate and Treat. Balance Training. Gait Training. Transfer Training. LE Strengthening. Mobility Tr aining. Wheelchair Management. LE ROM. Safety Awareness. Patient/Family Education. PHYSICAL EXAM - Gen Alert and awake Lying in bed No apparent distress Oriented to: person, time, and place - Skin No skin breakdown. Normacephalic - Eyes No abnormalities - ENMT No abnormalities - Neck No abnormalities - CVS RRR - Chest No abnormalities - Abd Soft - GI Non distended Deferred - No abnormalities - Ext No significant edema - MSK 3+/5 weakness in right upper and lower extremities - Neuro 3+/5 weakness in right upper and lower extremities and stuttering speech. Mild right facial weakness. - Psych No abnormalities ASSESSMENT: Pt. is a 41 yo Right-handed white female.On 05/01/2021 Pt. presented to [facility] with sudden onset of right-side weakness.On 05/01/2021 she was admitted to [facility] with diagnosis Clinical L brain cva with residual R body hemiparesis.Her impairment category is St roke 01 - Right Body (Left Brain) (01.2).Pre-morbidly, Pt. was independent/mod-I in Locomotion, Safe ty Awareness, Transfers Control, Sphincter Control, and Social Cognition; and she had good Balance, S elf-Care, and Communication.Currently, she has deficits of Locomotion, Safety Awareness, Balance, Tra nsfers Control, Self-Care, Communication, and Endurance.Pt. is now referred to [facility] for acute in-patient rehabilitation in order to maximize patient's functional independenc e in activities of daily living, strength, ROM, and mobility.- Rehab Goal Patient has realistic goal of being discharged at assistance level 7-Ind to reside at Home with Fami ly/Relatives. MDM/PLAN: - Physical Therapy Gait dysfunction - to improve, our physical therapists will perform initial evaluation of pt's statu s upon admission and devise an individualized program for Gait Training, and Wheel Chair mobility Inability to transfer - to improve, our physical therapists will perform initial evaluation of pt's status upon admission and devise an individualized program for Bed mobility Need for home safety evaluation - to improve, our physical therapists will perform initial evaluatio n of pt's status upon admission and devise an individualized program for Home Evaluation Need in caregiver upon discharge - to improve, our physical therapists will perform initial evaluati on of pt's status upon admission and devise an individualized program for Caregiver Training New precaution - to improve, our physical therapists will perform initial evaluation of pt's status upon admission and devise an individualized program for Patient precaution education Edema - to improve, our physical therapists will perform initial evaluation of pt's status upon admi ssion and devise an individualized program for Elevation Training, and Lymphedema Therapy Poor balance - to improve, our physical therapists will perform initial evaluation of pt's status up on admission and devise an individualized program for Balance Training Poor endurance - to improve, our physical therapists will perform initial evaluation of pt's status upon admission and devise an individualized program for Endurance Training Weakness - to improve, our physical therapists will perform initial evaluation of pt's status upon a dmission and devise an individualized program for Aquatic Therapy, Neuromuscular Reeducation, and Str engthening Achieving independence - to improve, our physical therapists will perform initial evaluation of pt's status upon admission and devise an individualized program for Community Reintegration Activities - Occupational Therapy ADL deficits - to improve, our occupation therapists will perform initial evaluation of pt's status upon admission and devise an individualized program for Bathing, Bed mobility, Community Reintegratio n, Cooking, Dressing, Eating, Fine Motor Skills, Grooming, Homemaking, Kitchen Mobility, Laundry, Pat ient Education, Safety Awareness, Splinting - Positioning, Transfers(Toilet, Tub, Shower), and Wheel Chair Management Need for pediatric acute care unit nurse - to improve, our occupation therapists will perform initial evaluation of pt's status upon admission and devise an individualized program for Caregiver Training Weakness - to improve, our occupation therapists will perform initial evaluation of pt's status upon admission and devise an individualized program for Aquatic Therapy, Balance, Endurance, UE ROM, and UE strengthening - Other See attached MAR (Medication Administration Record) - Diet Type Continue Heart Healthy - Diet - Liquid Texture Continue Regular - Tube Feed Continue N/A - Bladder care per protocol - Weight Bearing Precaution WBAT right LE - Fall Precaution Bed alarm TABS alarm Wheel chair alarm - Skin care per protocol - Diet - Solid Texture Continue Regular - Shower allowing shower for Dementia, TBI, Stroke, or others FUNCTIONAL STATUS: UPDATED AT WEEKLY TEAM CONFERENCE - Bladder Same accident frequency: 7-Ind - No accidents in the past 7 days - Bowel Same accident frequency: 7-Ind - No accidents in the past 7 days - Walking Same score based on distance walked: 0(N/A) - Wheelchair Same score based on distance traveled: 0(N/A) Same score based on distance traveled: 3(>=150ft) FUNCTIONAL STATUS: - Self-Care A. Eating Ind B. Grooming Cherelle C. Bathing modA D. Dressing - Upper Cherelle E. Dressing - Lower modA F. Toileting modA - Sphincter Control G. Bladder control Macy H. Bowel control Macy - Transfers Control I. Bed/Chair/Wheelchair modA J. Toilet modA K. Tub/Shower modA - Locomotion L. Walk/Wheelchair (B) modA M. Stairs maxA - Communication N. Comprehension (B) Macy O. Expression (B) Macy - Social Cognition P. Social Interaction Macy Q. Problem Solving Macy R. Memory Macy - Endurance Fair - Balance Fair - Safety Awareness Fair QI SCORES: - Self-Care A. Eating 05-Setup or clean-up assistance B. Oral hygiene 05-Setup or clean-up assistance C. Toileting hygiene 02-Substantial/maximal assistance E. Shower/bathe self 02-Substantial/maximal assistance F. Upper body dressing 02-Substantial/maximal assistance G. Lower body dressing 02-Substantial/maximal assistance H. Putting on/taking off footwear 02-Substantial/maximal assistance - Mobility A. Roll left and right 04-Supervision or touching assistance B. Sit to lying 04-Supervision or touching assistance C. Lying to sitting on side of bed 04-Supervision or touching assistance D. Sit to stand 03-Partial/moderate assistance E. Chair/[id number]-[id number] transfer 03-Partial/moderate assistance F. Toilet transfer 03-Partial/moderate assistance G. Car transfer 10-Not attempted due to environmental limitations I. Walk 10 feet 88-Not attempted due to medical condition or safety concerns J. Walk 50 feet with two turns 88-Not attempted due to medical condition or safety concerns K. Walk 150 feet 88-Not attempted due to medical condition or safety concerns L. Walking 10 feet on uneven surfaces 88-Not attempted due to medical condition or safety concerns M. 1 step (curb) 88-Not attempted due to medical condition or safety concerns N. 4 steps 88-Not attempted due to medical condition or safety concerns O. 12 steps 88-Not attempted due to medical condition or safety concerns P. Picking up object 88-Not attempted due to medical condition or safety concerns R. Wheel 50 feet with two turns 03-Partial/moderate assistance S. Wheel 150 feet 04-Supervision or touching assistance - Bladder and Bowel Bladder continence 0-Always continent Bowel continence 0-Always continent - Endurance Poor - Balance Poor - Safety Awareness Poor CURRENT FUNC. 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
[2021-05-10] MEDS: GABAPENTIN 300 MG CAP PO SCH (20:00)
[2021-05-10] MEDS: TRAZODONE 50 MG TABLET PO SCH (20:54)
[2021-05-11 05:51] LABS: Thyroid Stimulating Hormone 5.08 uIU/mL (0.360-3.740)
[2021-05-11] MEDS: LEVOTHYROXINE SOD 0.1 MG TAB PO SCH (06:33)
[2021-05-11] MEDS: LINACLOTIDE PO SCH (08:00)
[2021-05-11] MEDS: ENOXAPARIN 40 MG/0.4 ML SQ SCH (08:33)
[2021-05-11] MEDS: LIDOCAINE 4% PATCH TOP SCH (08:33)
[2021-05-11] MEDS: NICOTINE 14 MG/PAT TD SCH (08:33)
[2021-05-11] MEDS: TOPIRAMATE 25 MG TAB PO SCH (08:34)
[2021-05-11] MEDS: GABAPENTIN 300 MG CAP PO SCH ×2 (08:34→20:18)
[2021-05-11] MEDS: FOLIC ACID 1 MG TABLET PO SCH (08:34)
[2021-05-11] MEDS: CLOPIDOGREL 75 MG TABLET PO SCH (08:34)
[2021-05-11] MEDS: MIDODRINE HCL 5 MG TABLET PO SCH ×3 (08:34→20:17)
[2021-05-11] MEDS: CRANBERRY FRUIT EXTRACT 400 MG CAP PO SCH ×2 (08:34→20:16)
[2021-05-11] MEDS: ASPIRIN EC 81 MG TAB PO SCH (08:34)
[2021-05-11] MEDS: LACOSAMIDE 50 MG TABLET PO SCH ×2 (08:34→20:17)
[2021-05-11] MEDS: ROSUVASTATIN 10 MG TAB PO SCH (08:35)
[2021-05-11] MEDS: levETIRAcetam 500 MG TAB PO SCH ×2 (08:35→20:16)
[2021-05-11] MEDS: MAGNESIUM OXIDE 400 MG TAB PO SCH ×2 (08:35→20:18)
[2021-05-11] MEDS: HYDROXYCHLOROQUINE 200MG TAB PO SCH (08:37)
--- NOTE | 2021-05-11 09:59 | P.RH.PN ---
Estimated Length of Stay: 14 Expected Discharge Date: 05/18/21 Discharge Disposition Plan: Home Family Support: Yes Senior Care Goal: Mobility, Transfers, Self Care Vital Signs: Last Vital Signs Temp 97.2 F 05/11/21 07:53 Pulse 76 05/11/21 07:53 Resp 16 05/11/21 07:53 BP 111/74 05/11/21 07:53 Pulse Ox 100 05/11/21 07:53 Laboratory: Laboratory Last Values WBC 6.40 K/uL (4.3-10.9) D 05/10/21 04:42 RBC 3.84 M/uL (3.86-4.86) L 05/10/21 04:42 Hgb 11.6 g/dL (12.0-15.0) L 05/10/21 04:42 Hct 33.4 % (36.0-45.0) L 05/10/21 04:42 MCV 87.1 fL (80-100) 05/10/21 04:42 MCH 30.1 pg (27.0-35.0) 05/10/21 04:42 MCHC 34.6 g/dL (32.0-36.0) 05/10/21 04:42 RDW 13.2 % (12.1-15.2) 05/10/21 04:42 Plt Count 226 K/uL (152-406) 05/10/21 04:42 MPV 7.9 fL (7.6-11.3) 05/10/21 04:42 Neutrophils % 51.2 % (41.7-73.7) 05/10/21 04:42 Lymphocytes % 39.1 % (15.3-44.8) 05/10/21 04:42 Monocytes % 7.3 % (3.3-12.3) 05/10/21 04:42 Eosinophils % 1.8 % (0-4.4) 05/10/21 04:42 Basophils % 0.6 % (0-1.3) 05/10/21 04:42 Absolute Neutrophils 3.3 K/uL (1.8-8.0) 05/10/21 04:42 Absolute Lymphocytes 2.5 K/uL (0.7-4.9) 05/10/21 04:42 Absolute Monocytes 0.5 K/uL (0.1-1.3) 05/10/21 04:42 Absolute Eosinophils 0.1 K/uL (0-0.5) 05/10/21 04:42 Absolute Basophils 0.0 K/uL (0-0.5) 05/10/21 04:42 Sodium 139 mmol/L (136-145) 05/10/21 04:42 Potassium 3.8 mmol/L (3.5-5.1) 05/10/21 04:42 Chloride 104 mmol/L (98-107) 05/10/21 04:42 Carbon Dioxide 30 mmol/L (21-32) 05/10/21 04:42 BUN 4 mg/dL (7-18) L 05/10/21 04:42 Creatinine 0.72 mg/dL (0.55-1.3) 05/10/21 04:42 Estimated GFR 89 mL/min (=/>90) L 05/10/21 04:42 Glucose 91 mg/dL (74-106) 05/10/21 04:42 POC Glucose 106 mg/dL (65-120) 05/11/21 06:18 Calcium 8.9 mg/dL (8.5-10.1) 05/10/21 04:42 Phosphorus 4.3 mg/dL (2.5-4.9) 05/10/21 04:42 Magnesium 2.5 mg/dL (1.8-2.4) H 05/10/21 04:42 Albumin 3.2 g/dL (3.4-5.0) L 05/10/21 04:42 Prealbumin 16.6 mg/dL (20-40) L 05/10/21 04:42 TSH 5.080 uIU/mL (0.360-3.740) H 05/11/21 05:05 Free T4 1.28 ng/dL (0.76-1.46) 05/11/21 05:05 Urine Color Yellow (Yellow) 05/04/21 22:20 Urine Appearance Clear (Clear) 05/04/21 22:20 Urine pH 7.0 (5.0-7.0) 05/04/21 22:20 Ur Specific [place] <=1.005 (1.005-1.030) 05/04/21 22:20 Glucose (UA)(Auto) Negative (Negative) 05/04/21 22:20 Urine Ketones Negative (Negative) 05/04/21 22:20 Urine Blood Negative (Negative) 05/04/21 22:20 Urine Nitrite Negative (Negative) 05/04/21 22:20 Urine Bilirubin Negative (Negative) 05/04/21 22:20 Urine Urobilinogen 1.0 mg/dL (0.2-1.0) 05/04/21 22:20 Ur Leukocyte Esterase Trace (Negative) H 05/04/21 22:20 Urine RBC <5 /HPF (NONE SEEN) 05/04/21 22:20 Urine WBC <5 /HPF (<5) 05/04/21 22:20 Ur Squamous Epith Cells 5-10 /HPF (NONE SEEN) H 05/04/21 22:20 Urine Bacteria 20-50 /HPF (<20) H 05/04/21 22:20 Urine Mucus 1+ /HPF (NONE SEEN) 05/04/21 22:20 Urine Culture Reflexed Not needed 05/04/21 22:20 Urine Total Protein Negative (Negative) 05/04/21 22:20 SARS-CoV-2 Rap RNA(RT-PCR) Negative (NEGATIVE) 05/08/21 01:00 Weight: 228 lb 6.4 oz Wound Present: No Closed Surgical Incision Present: No Negative Pressure Wound Therapy Present: No Physician Update: Labs were reviewed. Her TSH improved from 31.7 to 5.08 and T4 increased to 1.28. She is making fair overall progress with all therapy. Walking 250' with independence, up and down 5 stairs with min assistance. Functional Improvement: Patient has met all short-term and long-term goals at this time, w/ the exception of a car transfer. Will meet w/ PT to increase goals, due to patient's progression. Summary: Patient's care plan and nurse wound care goals have been reviewed and revised as necessary. Please see the Rehabilitation Signature page for all necessary signatures.
[2021-05-11] MEDS: DOCUSATE NA/SENNA CONC 1 TAB PO PRN (20:16)
[2021-05-11] MEDS: TRAZODONE 50 MG TABLET PO SCH (20:16)
[2021-05-11] MEDS: TRAMADOL HCL 50 MG TAB PO PRN (20:17)
[2021-05-11] MEDS: MELATONIN 5 MG TABLET PO SCH (20:19)
[2021-05-12] MEDS: LIDOCAINE 4% PATCH TOP SCH (09:08)
[2021-05-12] MEDS: NICOTINE 14 MG/PAT TD SCH (09:11)
[2021-05-12] MEDS: CRANBERRY FRUIT EXTRACT 400 MG CAP PO SCH ×2 (09:12→19:47)
[2021-05-12] MEDS: levETIRAcetam 500 MG TAB PO SCH ×2 (09:12→19:47)
[2021-05-12] MEDS: MIDODRINE HCL 5 MG TABLET PO SCH ×3 (09:13→19:48)
[2021-05-12] MEDS: MAGNESIUM OXIDE 400 MG TAB PO SCH ×2 (09:13→19:47)
[2021-05-12] MEDS: TOPIRAMATE 25 MG TAB PO SCH (09:13)
[2021-05-12] MEDS: FOLIC ACID 1 MG TABLET PO SCH (09:13)
[2021-05-12] MEDS: LEVOTHYROXINE SOD 0.1 MG TAB PO SCH (09:14)
[2021-05-12] MEDS: CLOPIDOGREL 75 MG TABLET PO SCH (09:15)
[2021-05-12] MEDS: ASPIRIN EC 81 MG TAB PO SCH (09:15)
[2021-05-12] MEDS: GABAPENTIN 300 MG CAP PO SCH ×2 (09:15→19:48)
[2021-05-12] MEDS: ROSUVASTATIN 10 MG TAB PO SCH (09:15)
[2021-05-12] MEDS: HYDROXYCHLOROQUINE 200MG TAB PO SCH (09:16)
[2021-05-12] MEDS: LACOSAMIDE 50 MG TABLET PO SCH ×2 (09:16→19:49)
[2021-05-12] MEDS: ENOXAPARIN 40 MG/0.4 ML SQ SCH (09:17)
[2021-05-12] MEDS: TRAZODONE 50 MG TABLET PO SCH (19:47)
[2021-05-12] MEDS: TRAMADOL HCL 50 MG TAB PO PRN (19:48)
[2021-05-12] MEDS: MELATONIN 5 MG TABLET PO SCH (19:48)
[2021-05-13] MEDS: LEVOTHYROXINE SOD 0.1 MG TAB PO SCH (07:02)
[2021-05-13] MEDS: ENOXAPARIN 40 MG/0.4 ML SQ SCH (07:07)
[2021-05-13] MEDS: LIDOCAINE 4% PATCH TOP SCH (09:22)
[2021-05-13] MEDS: MIDODRINE HCL 5 MG TABLET PO SCH ×3 (09:22→19:37)
[2021-05-13] MEDS: NICOTINE 14 MG/PAT TD SCH (09:22)
[2021-05-13] MEDS: GABAPENTIN 300 MG CAP PO SCH ×2 (09:23→19:37)
[2021-05-13] MEDS: levETIRAcetam 500 MG TAB PO SCH ×2 (09:23→19:38)
[2021-05-13] MEDS: CLOPIDOGREL 75 MG TABLET PO SCH (09:23)
[2021-05-13] MEDS: LACOSAMIDE 50 MG TABLET PO SCH ×2 (09:23→19:38)
[2021-05-13] MEDS: TOPIRAMATE 25 MG TAB PO SCH (09:23)
[2021-05-13] MEDS: ASPIRIN EC 81 MG TAB PO SCH (09:23)
[2021-05-13] MEDS: FOLIC ACID 1 MG TABLET PO SCH (09:23)
[2021-05-13] MEDS: ROSUVASTATIN 10 MG TAB PO SCH (09:23)
[2021-05-13] MEDS: CRANBERRY FRUIT EXTRACT 400 MG CAP PO SCH ×2 (09:24→19:37)
[2021-05-13] MEDS: MAGNESIUM OXIDE 400 MG TAB PO SCH ×2 (09:24→19:37)
[2021-05-13] MEDS: HYDROXYCHLOROQUINE 200MG TAB PO SCH (09:25)
[2021-05-13] MEDS: MELATONIN 5 MG TABLET PO SCH (19:37)
[2021-05-13] MEDS: TRAZODONE 50 MG TABLET PO SCH (19:37)
[2021-05-13] MEDS: TRAMADOL HCL 50 MG TAB PO PRN (19:38)
[2021-05-14] MEDS: ROSUVASTATIN 10 MG TAB PO SCH (08:00)
[2021-05-14] MEDS: TOPIRAMATE 25 MG TAB PO SCH (08:00)
[2021-05-14] MEDS: MIDODRINE HCL 5 MG TABLET PO SCH ×3 (09:00→19:35)
[2021-05-14] MEDS: LIDOCAINE 4% PATCH TOP SCH (09:02)
[2021-05-14] MEDS: NICOTINE 14 MG/PAT TD SCH (09:03)
[2021-05-14] MEDS: ENOXAPARIN 40 MG/0.4 ML SQ SCH (09:05)
[2021-05-14] MEDS: MAGNESIUM OXIDE 400 MG TAB PO SCH ×2 (09:06→19:35)
[2021-05-14] MEDS: ASPIRIN EC 81 MG TAB PO SCH (09:06)
[2021-05-14] MEDS: CLOPIDOGREL 75 MG TABLET PO SCH (09:06)
[2021-05-14] MEDS: HYDROXYCHLOROQUINE 200MG TAB PO SCH (09:06)
[2021-05-14] MEDS: GABAPENTIN 300 MG CAP PO SCH ×2 (09:07→19:35)
[2021-05-14] MEDS: LEVOTHYROXINE SOD 0.1 MG TAB PO SCH (09:07)
[2021-05-14] MEDS: CRANBERRY FRUIT EXTRACT 400 MG CAP PO SCH ×2 (09:07→19:35)
[2021-05-14] MEDS: LACOSAMIDE 50 MG TABLET PO SCH ×2 (09:13→19:36)
[2021-05-14] MEDS: FOLIC ACID 1 MG TABLET PO SCH (09:15)
[2021-05-14] MEDS: levETIRAcetam 500 MG TAB PO SCH ×2 (09:16→19:35)
[2021-05-14] MEDS: DOCUSATE NA/SENNA CONC 1 TAB PO PRN (19:34)
[2021-05-14] MEDS: MELATONIN 5 MG TABLET PO SCH (19:35)
[2021-05-14] MEDS: TRAZODONE 50 MG TABLET PO SCH (19:36)
[2021-05-14] MEDS: TRAMADOL HCL 50 MG TAB PO PRN (19:38)
[2021-05-15] MEDS: MAGNESIUM OXIDE 400 MG TAB PO SCH ×2 (07:40→20:33)
[2021-05-15] MEDS: ENOXAPARIN 40 MG/0.4 ML SQ SCH (07:40)
[2021-05-15] MEDS: LIDOCAINE 4% PATCH TOP SCH (07:40)
[2021-05-15] MEDS: GABAPENTIN 300 MG CAP PO SCH ×2 (07:40→20:33)
[2021-05-15] MEDS: FOLIC ACID 1 MG TABLET PO SCH (07:41)
[2021-05-15] MEDS: ASPIRIN EC 81 MG TAB PO SCH (07:41)
[2021-05-15] MEDS: CLOPIDOGREL 75 MG TABLET PO SCH (07:41)
[2021-05-15] MEDS: MIDODRINE HCL 5 MG TABLET PO SCH ×3 (07:41→20:34)
[2021-05-15] MEDS: LEVOTHYROXINE SOD 0.1 MG TAB PO SCH (07:41)
[2021-05-15] MEDS: CRANBERRY FRUIT EXTRACT 400 MG CAP PO SCH ×2 (07:41→20:32)
[2021-05-15] MEDS: ROSUVASTATIN 10 MG TAB PO SCH (07:41)
[2021-05-15] MEDS: levETIRAcetam 500 MG TAB PO SCH ×2 (07:42→20:33)
[2021-05-15] MEDS: TOPIRAMATE 25 MG TAB PO SCH (07:43)
[2021-05-15] MEDS: NICOTINE 14 MG/PAT TD SCH (07:43)
[2021-05-15] MEDS: LACOSAMIDE 50 MG TABLET PO SCH ×2 (07:43→20:34)
[2021-05-15] MEDS: HYDROXYCHLOROQUINE 200MG TAB PO SCH (10:52)
[2021-05-15] MEDS: DOCUSATE NA/SENNA CONC 1 TAB PO PRN (20:32)
[2021-05-15] MEDS: MELATONIN 5 MG TABLET PO SCH (20:33)
[2021-05-15] MEDS: TRAMADOL HCL 50 MG TAB PO PRN (20:33)
[2021-05-15] MEDS: TRAZODONE 50 MG TABLET PO SCH (20:33)
[2021-05-16] MEDS: MAGNESIUM OXIDE 400 MG TAB PO SCH ×2 (08:26→20:10)
[2021-05-16] MEDS: ASPIRIN EC 81 MG TAB PO SCH (08:26)
[2021-05-16] MEDS: TOPIRAMATE 25 MG TAB PO SCH (08:26)
[2021-05-16] MEDS: levETIRAcetam 500 MG TAB PO SCH ×2 (08:26→20:10)
[2021-05-16] MEDS: GABAPENTIN 300 MG CAP PO SCH ×2 (08:26→20:11)
[2021-05-16] MEDS: FOLIC ACID 1 MG TABLET PO SCH (08:27)
[2021-05-16] MEDS: CLOPIDOGREL 75 MG TABLET PO SCH (08:27)
[2021-05-16] MEDS: NICOTINE 14 MG/PAT TD SCH (08:27)
[2021-05-16] MEDS: LACOSAMIDE 50 MG TABLET PO SCH ×2 (08:27→20:11)
[2021-05-16] MEDS: LEVOTHYROXINE SOD 0.1 MG TAB PO SCH (08:27)
[2021-05-16] MEDS: ROSUVASTATIN 10 MG TAB PO SCH (08:27)
[2021-05-16] MEDS: MIDODRINE HCL 5 MG TABLET PO SCH ×3 (08:28→20:11)
[2021-05-16] MEDS: LIDOCAINE 4% PATCH TOP SCH (08:29)
[2021-05-16] MEDS: ENOXAPARIN 40 MG/0.4 ML SQ SCH (08:29)
[2021-05-16] MEDS: CRANBERRY FRUIT EXTRACT 400 MG CAP PO SCH ×2 (08:30→20:10)
[2021-05-16] MEDS: HYDROXYCHLOROQUINE 200MG TAB PO SCH (08:40)
[2021-05-16] MEDS: TRAMADOL HCL 50 MG TAB PO PRN (12:37)
[2021-05-16] MEDS: TRAZODONE 50 MG TABLET PO SCH (20:11)
[2021-05-16] MEDS: MELATONIN 5 MG TABLET PO SCH (20:12)
[2021-05-16] MEDS: DOCUSATE NA/SENNA CONC 1 TAB PO PRN (20:13)
[2021-05-16] MEDS: ACETAMINOPHEN 500 MG TAB PO PRN (20:13)
--- NOTE | 2021-05-16 23:13 | P.PN ---
Subjective Date of Service: 05/14/21 Subjective: No new changes, No C/O voiced, Improving Review of Systems 10-point ROS is otherwise unremarkable Physical Examination - Vital Signs Temperature: 97.4 F Blood Pressure: 92/55 Pulse: 68 Respirations: 18 Pulse Ox (%): 98 - Physical Exam General: Alert, In no apparent distress, Oriented x3 HEENT: Atraumatic, PERRLA, EOMI Neck: Supple, JVD not distended Respiratory: Clear to auscultation bilaterally, Normal air movement Cardiovascular: Regular rate/rhythm, Normal S1 S2, No murmurs Gastrointestinal: Normal bowel sounds, Soft and benign, Non-distended, No tenderness Musculoskeletal: No clubbing, No swelling, No tenderness Neurological: Normal gait, Normal speech, Normal strength at 5/5 x4 extr, Normal tone, Sensation intact, Cranial nerves 3-12 intact - Studies Medications List Reviewed: Yes Assessment & Plan - Problems (Diagnosis) (1) Acute CVA (cerebrovascular accident) Current Visit: No Status: Acute (2) Rheumatoid arthritis Current Visit: No Status: Acute (3) SLE (systemic lupus erythematosus) Current Visit: No Status: Acute - Plan Physician Update: Labs were reviewed. Her TSH improved from 31.7 to 5.08 and T4 increased to 1.28. She is making fair overall progress with all therapy. Walking 250' with independence, up and down 5 stairs with min assistance. Functional Improvement: Patient has met all short-term and long-term goals at this time, w/ the exception of a car transfer. Will meet w/ PT to increase goals, due to patient's progression. Medical: -continue with antiplatelet and statin -continue with meds for migraine -continue with antiepileptic -dc on 05/18 Discharge Plan: Home Plan to discharge in: Greater than 2 days - Advance Directives Does patient have a Living Will: No Does patient have a Durable POA for Healthcare: No - Code Status/Comfort Care Code Status Assessed: Yes Code Status: Full Code Critical Care: No Time Spent Managing PTS Care (In Minutes): 35
--- NOTE | 2021-05-16 23:16 | P.PN ---
Date of Service: 05/16/21 Subjective Subjective: No new changes, headache Review of Systems 10-point ROS is otherwise unremarkable Physical Examination - Vital Signs reviewed - Physical Exam General: Alert, In no apparent distress, Oriented x3 Respiratory: Clear to auscultation bilaterally, Normal air movement Cardiovascular: Regular rate/rhythm, Normal S1 S2, No murmurs Gastrointestinal: Normal bowel sounds, Soft and benign, Non-distended, No tenderness Musculoskeletal: No clubbing, No swelling, No tenderness Neurological: Normal gait, Normal speech, Normal strength at 5/5 x4 extr, Normal tone, Sensation intact, Cranial nerves 3-12 intact - Studies Medications List Reviewed: Yes Assessment & Plan - Problems (Diagnosis) (1) Acute CVA (cerebrovascular accident) Current Visit: No Status: Acute (2) Rheumatoid arthritis Current Visit: No Status: Acute (3) SLE (systemic lupus erythematosus) Current Visit: No Status: Acute - Plan Physician Update: Labs were reviewed. Her TSH improved from 31.7 to 5.08 and T4 increased to 1.28. She is making fair overall progress with all therapy. Walking 250' with independence, up and down 5 stairs with min assistance. Functional Improvement: Patient has met all short-term and long-term goals at this time, w/ the exception of a car transfer. Will meet w/ PT to increase goals, due to patient's progression. Medical: -continue with antiplatelet and statin -continue with meds for migraine -continue with antiepileptic -dc on 05/18 Discharge Plan: Home Plan to discharge in: Greater than 2 days - Advance Directives Does patient have a Living Will: No Does patient have a Durable POA for Healthcare: No - Code Status/Comfort Care Code Status Assessed: Yes Code Status: Full Code Critical Care: No Time Spent Managing PTS Care (In Minutes): 35
[2021-05-17 05:49] LABS: Absolute Lymphocytes (CBC) 2.2 K/uL (0.7-4.9); Basophils % 0.8 % (0-1.3); Hematocrit 33.9 % (36.0-45.0); Lymphocytes % 41.8 % (15.3-44.8); RBC Red Blood Cell Count 3.87 M/uL (3.86-4.86)
[2021-05-17 06:13] LABS: Albumin 3.2 g/dL (3.4-5.0); Bilirubin Total 0.3 mg/dL (0.2-1.0); Magnesium 2.3 mg/dL (1.8-2.4); Potassium 3.6 mmol/L (3.5-5.1); Prealbumin 19.3 mg/dL (20-40); Protein, Total 7.2 g/dL (6.4-8.2); Thyroid Stimulating Hormone 0.142 uIU/mL (0.360-3.740)
[2021-05-17] MEDS: ENOXAPARIN 40 MG/0.4 ML SQ SCH (06:50)
[2021-05-17] MEDS: TOPIRAMATE 25 MG TAB PO SCH (06:50)
[2021-05-17] MEDS: LEVOTHYROXINE SOD 0.1 MG TAB PO SCH (06:51)
[2021-05-17] MEDS: LIDOCAINE 4% PATCH TOP SCH (06:52)
[2021-05-17] MEDS: NICOTINE 14 MG/PAT TD SCH (06:53)
[2021-05-17] MEDS: GABAPENTIN 300 MG CAP PO SCH ×2 (07:57→19:42)
[2021-05-17] MEDS: levETIRAcetam 500 MG TAB PO SCH ×2 (07:58→19:42)
[2021-05-17] MEDS: LACOSAMIDE 50 MG TABLET PO SCH ×2 (07:58→19:42)
[2021-05-17] MEDS: MIDODRINE HCL 5 MG TABLET PO SCH ×3 (07:58→19:40)
[2021-05-17] MEDS: MAGNESIUM OXIDE 400 MG TAB PO SCH ×2 (07:59→19:42)
[2021-05-17] MEDS: ROSUVASTATIN 10 MG TAB PO SCH (07:59)
[2021-05-17] MEDS: FOLIC ACID 1 MG TABLET PO SCH (07:59)
[2021-05-17] MEDS: CRANBERRY FRUIT EXTRACT 400 MG CAP PO SCH ×2 (07:59→19:40)
[2021-05-17] MEDS: ASPIRIN EC 81 MG TAB PO SCH (07:59)
[2021-05-17] MEDS: CLOPIDOGREL 75 MG TABLET PO SCH (07:59)
[2021-05-17] MEDS: HYDROXYCHLOROQUINE 200MG TAB PO SCH (08:01)
[2021-05-17] MEDS: ACETAMIN/CAFFEINE/BUTALB TAB PO PRN ×2 (12:42→20:38)
[2021-05-17] MEDS: MELATONIN 5 MG TABLET PO SCH (19:41)
[2021-05-17] MEDS: TRAZODONE 50 MG TABLET PO SCH (19:42)
[2021-05-17 22:02] VITALS: TEMP 97.4
[2021-05-17 22:09] VITALS: O2SAT 98
[2021-05-18 08:15] VITALS: BP 95/63
[2021-05-18] MEDS: LIDOCAINE 4% PATCH TOP SCH (09:06)
[2021-05-18] MEDS: NICOTINE 14 MG/PAT TD SCH (09:07)
[2021-05-18] MEDS: levETIRAcetam 500 MG TAB PO SCH (09:07)
[2021-05-18] MEDS: ENOXAPARIN 40 MG/0.4 ML SQ SCH (09:07)
[2021-05-18] MEDS: CRANBERRY FRUIT EXTRACT 400 MG CAP PO SCH (09:08)
[2021-05-18] MEDS: TOPIRAMATE 25 MG TAB PO SCH (09:08)
[2021-05-18] MEDS: GABAPENTIN 300 MG CAP PO SCH (09:08)
[2021-05-18] MEDS: ASPIRIN EC 81 MG TAB PO SCH (09:08)
[2021-05-18] MEDS: LACOSAMIDE 50 MG TABLET PO SCH (09:09)
[2021-05-18] MEDS: LEVOTHYROXINE SOD 0.1 MG TAB PO SCH (09:09)
[2021-05-18] MEDS: ROSUVASTATIN 10 MG TAB PO SCH (09:09)
[2021-05-18] MEDS: CLOPIDOGREL 75 MG TABLET PO SCH (09:09)
[2021-05-18] MEDS: MAGNESIUM OXIDE 400 MG TAB PO SCH (09:09)
[2021-05-18] MEDS: FOLIC ACID 1 MG TABLET PO SCH (09:09)
[2021-05-18] MEDS: MIDODRINE HCL 5 MG TABLET PO SCH (09:10)
[2021-05-18] MEDS: HYDROXYCHLOROQUINE 200MG TAB PO SCH (09:10)
--- NOTE | 2021-05-18 10:55 | R.DS ---
DISCHARGE SUMMARY FACILITY [facility] MR# [id number] NAME DESTINEE NOLAN ADDRESS [address] [place]IP [address] PHONE DATE OF 1980 AGE 41 SSN# [id number] GENDER Female MARITAL STATUS RACE White ENCOUNTER PHYSICIAN Dr. Dafne Larry REFERRING DOCTOR Dr. 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 NURSING: - Shower allowing shower - Bladder care per protocol - Skin care per protocol PRECAUTIONS: - Weight Bearing Precaution WBAT right LE - Fall Precaution Bed alarm TABS alarm Wheel chair alarm ACTIVITIES OOB only with supervision THERAPIES: - Dietary and Nutrition Adequate Nutrition Nutritional Education Nutritional Supplements - Occupational Therapy Cognitive Retraining ADL Training Evaluate and Treat Patient/Family Education UE Strengthening Adaptive Equipment Transfer Training Visual Perceptual Training - Speech Therapy Cognitive Training Expressive Language Skills Memory Strategies Receptive Language Skills Speech Intelligibility Training - Physical Therapy Evaluate and Treat Balance Training Gait Training Transfer Training LE Strengthening Mobility Training Wheelchair Management LE ROM Safety Awareness Patient/Family Education HISTORY OF PRESENT ILLNESS: Pt. is a 41 yo Right-handed white female.On 05/01/2021 Pt. 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 was independent/mod-I in Locomotion, Safe ty Awareness, Transfers Control, Sphincter Control, and Social Cognition; and she had good Balance, S elf-Care, and Communication.Currently, she has deficits of Locomotion, Safety Awareness, Balance, Tra nsfers Control, Self-Care, Communication, and Endurance.Pt. is now referred to [facility] for acute in-patient rehabilitation in order to maximize patient's functional independenc e in activities of daily living, strength, ROM, and mobility.- Rehab Goal Patient has realistic goal of being discharged at assistance level 7-Ind to reside at Home with Fami ly/Relatives. DIET - LIQUID TEXTURE: On 05/04/2021 Pt was upgraded to Regular Diet - Liquid Texture. DIET - SOLID TEXTURE: On 05/04/2021 Pt was upgraded to Regular Diet - Solid Texture. DIET TYPE: On 05/04/2021 Pt was changed to Heart Healthy Diet Type. FALL PRECAUTION: On 05/05/2021 the following precautions were added for the patient: Fall Precaution - Bed alarm, Fall Precaution - TABS alarm, and Fall Precaution - Wheel chair alarm. On 05/07/2021 the following precautions were added for the patient: Fall Precaution - Bed alarm, Fal l Precaution - TABS alarm, and Fall Precaution - Wheel chair alarm. The following precautions were removed for the patient: Fall Precaution - Bed alarm, Fall Precaution - TABS alarm, Fall Precaution - Wheel chair alarm, Fall Precaution - Bed alarm, Fall Precaution - T ABS alarm, and Fall Precaution - Wheel chair alarm. On 05/05/2021 the following precautions were added for the patient: Weight Bearing Precaution - WBAT right LE, and Weight Bearing Precaution - WBAT right LE. On 05/07/2021 the following precautions were removed for the patient: Weight Bearing Precaution - WB AT right LE. On 05/09/2021 the following precautions were added for the patient: Weight Bearing Precaution - WBAT right LE. TUBE FEED: On 05/04/2021 Pt was changed to N/A Tube Feed. WEIGHT BEARING PRECAUTION: DISCHARGE PHYSICAL EXAM - Gen Alert and awake Lying in bed No apparent distress Oriented to: person, time, and place - Skin No skin breakdown. Normacephalic - Eyes No abnormalities - ENMT No abnormalities - Neck No abnormalities - CVS RRR - Chest No abnormalities - Abd Soft - GI Non distended Deferred - No abnormalities - Ext No significant edema - MSK 3+/5 weakness in right upper and lower extremities - Neuro 3+/5 weakness in right upper and lower extremities and stuttering speech. Mild right facial weakness. - Psych No abnormalities QI SCORES: - Self-Care A. Eating 05-Setup or clean-up assistance B. Oral hygiene 05-Setup or clean-up assistance C. Toileting hygiene 02-Substantial/maximal assistance E. Shower/bathe self 02-Substantial/maximal assistance F. Upper body dressing 02-Substantial/maximal assistance G. Lower body dressing 02-Substantial/maximal assistance H. Putting on/taking off footwear 02-Substantial/maximal assistance - Mobility A. Roll left and right 04-Supervision or touching assistance B. Sit to lying 04-Supervision or touching assistance C. Lying to sitting on side of bed 04-Supervision or touching assistance D. Sit to stand 03-Partial/moderate assistance E. Chair/tmm-pu-tzusc transfer 03-Partial/moderate assistance F. Toilet transfer 03-Partial/moderate assistance G. Car transfer 10-Not attempted due to environmental limitations I. Walk 10 feet 88-Not attempted due to medical condition or safety concerns J. Walk 50 feet with two turns 88-Not attempted due to medical condition or safety concerns K. Walk 150 feet 88-Not attempted due to medical condition or safety concerns L. Walking 10 feet on uneven surfaces 88-Not attempted due to medical condition or safety concerns M. 1 step (curb) 88-Not attempted due to medical condition or safety concerns N. 4 steps 88-Not attempted due to medical condition or safety concerns O. 12 steps 88-Not attempted due to medical condition or safety concerns P. Picking up object 88-Not attempted due to medical condition or safety concerns R. Wheel 50 feet with two turns 03-Partial/moderate assistance S. Wheel 150 feet 04-Supervision or touching assistance - Bladder and Bowel Bladder continence 0-Always continent Bowel continence 0-Always continent - Endurance Poor - Balance Poor - Safety Awareness Poor DISCHARGE PLAN, FOLLOW UP CARE PROVISIONS: - Estimated Length of Stay (days) 14. - Consensus on plan Discharge plan has been discussed with primary caregiver. Patient/Family is in agreement with the justyn n. Primary caregiver is in agreement with the plan. - Patient/Family Goals Return home independently. - Planned Living Setting Upon Discharge Home, to live with Family/Relatives. Transitional Living. 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
--- NOTE | 2021-05-18 11:04 | P.RH.PN ---
Estimated Length of Stay: 14 Expected Discharge Date: 05/18/21 Discharge Disposition Plan: Home Family Support: Yes [facility] Goal: Mobility Vital Signs: Last Vital Signs Temp 97.4 F 05/18/21 08:14 Pulse 67 05/18/21 08:14 Resp 18 05/18/21 08:14 BP 95/63 05/18/21 08:14 Pulse Ox 98 05/18/21 08:14 Laboratory: Laboratory Last Values WBC 5.30 K/uL (4.3-10.9) D 05/17/21 05:28 RBC 3.87 M/uL (3.86-4.86) 05/17/21 05:28 Hgb 11.4 g/dL (12.0-15.0) L 05/17/21 05:28 Hct 33.9 % (36.0-45.0) L 05/17/21 05:28 MCV 87.7 fL (80-100) 05/17/21 05:28 MCH 29.4 pg (27.0-35.0) 05/17/21 05:28 MCHC 33.6 g/dL (32.0-36.0) 05/17/21 05:28 RDW 13.1 % (12.1-15.2) 05/17/21 05:28 Plt Count 208 K/uL (152-406) 05/17/21 05:28 MPV 8.0 fL (7.6-11.3) 05/17/21 05:28 Neutrophils % 50.2 % (41.7-73.7) 05/17/21 05:28 Lymphocytes % 41.8 % (15.3-44.8) 05/17/21 05:28 Monocytes % 6.5 % (3.3-12.3) 05/17/21 05:28 Eosinophils % 0.7 % (0-4.4) 05/17/21 05:28 Basophils % 0.8 % (0-1.3) 05/17/21 05:28 Absolute Neutrophils 2.6 K/uL (1.8-8.0) 05/17/21 05:28 Absolute Lymphocytes 2.2 K/uL (0.7-4.9) 05/17/21 05:28 Absolute Monocytes 0.3 K/uL (0.1-1.3) 05/17/21 05:28 Absolute Eosinophils 0.0 K/uL (0-0.5) 05/17/21 05:28 Absolute Basophils 0.0 K/uL (0-0.5) 05/17/21 05:28 Absolute Retic 0.06 M/uL (0.02-0.11) 05/17/21 05:28 Percent Retic 1.49 % (0.4-2.05) 05/17/21 05:28 Sodium 139 mmol/L (136-145) 05/17/21 05:28 Potassium 3.6 mmol/L (3.5-5.1) 05/17/21 05:28 Chloride 109 mmol/L (98-107) H 05/17/21 05:28 Carbon Dioxide 26 mmol/L (21-32) 05/17/21 05:28 BUN 9 mg/dL (7-18) 05/17/21 05:28 Creatinine 0.76 mg/dL (0.55-1.3) 05/17/21 05:28 Estimated GFR 83 mL/min (=/>90) L 05/17/21 05:28 Glucose 99 mg/dL (74-106) 05/17/21 05:28 POC Glucose 106 mg/dL (65-120) 05/11/21 06:18 Calcium 8.7 mg/dL (8.5-10.1) 05/17/21 05:28 Phosphorus 4.3 mg/dL (2.5-4.9) 05/10/21 04:42 Magnesium 2.3 mg/dL (1.8-2.4) 05/17/21 05:28 Total Bilirubin 0.3 mg/dL (0.2-1.0) 05/17/21 05:28 AST 23 U/L (15-37) 05/17/21 05:28 ALT 47 U/L (12-78) 05/17/21 05:28 Alkaline Phosphatase 75 U/L (45-117) 05/17/21 05:28 Serum Total Protein 7.2 g/dL (6.4-8.2) 05/17/21 05:28 Albumin Cancelled 05/17/21 06:00 Globulin 4.0 g/dL (2.3-3.5) H 05/17/21 05:28 Albumin/Globulin Ratio 0.8 (1.1-1.8) L 05/17/21 05:28 Prealbumin Cancelled 05/17/21 06:00 TSH 0.142 uIU/mL (0.360-3.740) L 05/17/21 05:28 Free T4 1.28 ng/dL (0.76-1.46) 05/11/21 05:05 Cortisol 12.26 ug/dL (SEE COMMENT) 05/17/21 05:28 Urine Color Yellow (Yellow) 05/04/21 22:20 Urine Appearance Clear (Clear) 05/04/21 22:20 Urine pH 7.0 (5.0-7.0) 05/04/21 22:20 Ur Specific Byers <=1.005 (1.005-1.030) 05/04/21 22:20 Glucose (UA)(Auto) Negative (Negative) 05/04/21 22:20 Urine Ketones Negative (Negative) 05/04/21 22:20 Urine Blood Negative (Negative) 05/04/21 22:20 Urine Nitrite Negative (Negative) 05/04/21 22:20 Urine Bilirubin Negative (Negative) 05/04/21 22:20 Urine Urobilinogen 1.0 mg/dL (0.2-1.0) 05/04/21 22:20 Ur Leukocyte Esterase Trace (Negative) H 05/04/21 22:20 Urine RBC <5 /HPF (NONE SEEN) 05/04/21 22:20 Urine WBC <5 /HPF (<5) 05/04/21 22:20 Ur Squamous Epith Cells 5-10 /HPF (NONE SEEN) H 05/04/21 22:20 Urine Bacteria 20-50 /HPF (<20) H 05/04/21 22:20 Urine Mucus 1+ /HPF (NONE SEEN) 05/04/21 22:20 Urine Culture Reflexed Not needed 05/04/21 22:20 Urine Total Protein Negative (Negative) 05/04/21 22:20 SARS-CoV-2 Rap RNA(RT-PCR) Negative (NEGATIVE) 05/15/21 05:28 Weight: 229 lb 1.6 oz Wound Present: No Closed Surgical Incision Present: No Negative Pressure Wound Therapy Present: No Physician Update: see DC summary Functional Improvement: Patient has met all short-term and long-term goals at this time, w/ the exception of a car transfer. Will meet w/ PT to increase goals, due to patient's progression. Summary: Patient's care plan and halfway goals have been reviewed and revised as necessary. Please see the Rehabilitation Signature page for all necessary signatures.
== END 2021-05-18 12:44 | disposition home or self-care (01) | DRG 57 ==
LOC: 5TH 22:10
PROVIDERS: ADMIT Psychiatry & Neurology Neurology with Special Qualifications in Child Neurology; ATTEND Psychiatry & Neurology Neurology with Special Qualifications in Child Neurology
DX: I69.351 Hemiplegia and hemiparesis following cerebral infarction affecting right dominant side (principal); M32.9 Systemic lupus erythematosus, unspecified; M19.90 Unspecified osteoarthritis, unspecified site; Z20.822 Contact with and (suspected) exposure to COVID-19
CPT/HCPCS: 36415; 80048; 80053; 81001; 82040; 82533; 82947; 83735; 84100; 84134; 84439; 84443; 85025; 85044; 87077; 87086; 87088; 87186; 92507; 92523; 97110; 97112; 97116; 97124; 97127; 97161; 97530; 97542; J1650; U0003

== ENCOUNTER 2021-08-21 16:48 | Emergency (ER) | payer BC, SELFPAY ==
--- OUTSIDE RECORDS SUMMARY | 2021-08-21 17:26 | XMS REPORT | Continuity of Care Document ---
:[address] [facility] t Address [address] [place] [address] Care Team Providers Name Role Phone LIZET Attending Clinician Unavailable Akiko Raymond Attending Clinician Payers Payer Name Policy Type Policy Number Effective Date Expiration Date S ource Problems Condition Condition Condition Status Onset Resolution Last Treating Co mments Source Name Details Category Date Date Treatment Clinician Date No known No known Disease Unive rs active active ity of problems problems [facility] Allergies, Adverse Reactions, Alerts Allergy Allergy Status Severity Reaction(s) Onset Inactive Treating Comm ents Source Name Type Date Date Clinician NO KNOWN Drug Active Univers ALLERGIE Class ity of S [facility] Social History Social Habit Start Date Stop Date Quantity Comments Source Sex Assigned At Uni versity [facility] Exposure to SARS-CoV-2 Not sure [facility] [place] (event) [facility] Smoking Status Start Date Stop Date Source Unknown if ever smoked Universit y [facility] Medications Ordered Filled Start Stop Current Ordering Indication Dosage Frequency Signature Comments Components Source Medication Medication Date Date Medication? Clinician (SIG) Name Name amoxicillin 2020- No 1{tbl} 1 tablet, Univers -clavulanat 05-31 Oral, ONCE i ty of e 05:00: 04:02 NOW, 1 [place] (AUGMENTIN) 00 :00 dose, Tue Med ical 875-125 mg 05/30/20 at Bran ch per tablet 2300, 1 tablet Routine
Reason for Anti-Infec tive: Documented Infection< br>Documen justino Infection Site: Respirator y
Durat ion of Therapy: Other (see Comments) ketorolac No 15mg 15 mg, [facility] (TORADOL) 05-31 Slow IV ity of injection 03:30: 02:26 Push, [place] 15 mg 00 :00 ONCE, 1 Medical dose, [facility] 05/30/20 at 2130, EVANS
Fa culty member approving Restricted medication : ZOE ANVAS hydrOXYzine 2020- No 25mg 25 mg, Uni vers (ATARAX) 05-31 Oral, ity of tablet 25 03:30: 02:26 ONCE, 1 [place] mg 00 :00 dose, [facility] Medical 05/30/20 at Branch 2130, EVANS famotidine 2020- No 20mg 20 mg, Univ ers (PEPCID 05-31 Slow IV ity of (PF)) 03:30: 02:26 Push, [place] injection 00 :00 ONCE, 1 Medical 20 mg dose, [facility] 05/30/20 at 2130, EVANS iohexol 2020- No 100mL 100 mL, [facility] (OMNIPAQUE 05-31 Intravenou it y of 350 01:45: 01:37 s, ONCE, 1 [place] BULK-150 00 :00 dose, [facility] Medica l mL) 05/30/20 at Branch injection 1944, 100 mL Routine butalbital- 2020- No 1{tbl} 1 tablet, Univers acetaminoph 05-31 Oral, ONCE i ty of en-caff 01:45: 00:52 NOW, 1 [place] (ESGIC) 00 :00 dose, [facility] Medical 50-325-40 05/30/20 at [facility] h mg tablet 1 1944, tablet Routine diphenhydrA No 50mg 50 mg, Uni vers MINE 05-31 Slow IV ity of (BENADRYL) 00:15: 00:52 Push, [place] injection 00 :00 ONCE, 1 Medical 50 mg dose, [facility] 05/30/20 at 1815, STAT methylPREDN 2020- No 40mg 40 mg, IV Univers ISolone sod 05-31 Piggyback, i ty of succ 00:15: 00:52 ONCE, 1 [place] (SOLU-MEDRO 00 :00 dose, Tue Med ical L (PF)) 05/30/20 at Branch injection 1815, STAT 40 mg NaCl 0.9% 2020- No 1000mL at 999 Uni vers (NS) bolus 05-30 mL/hr, ity of infusion 23:15: 02:15 1,000 mL, [place] as 1,000 mL 00 :00 IV Medical Infusion, Branch ONCE, 1 dose, 05/30/20 at 1715, EVANS albuterol Yes [id number] 2{puff} Inhale 2 Univers 90 1-05 Puffs ity of mcg/actuati 00:00: every 4 [place] as on inhaler 00 (four) Medical hours as Branch needed for Wheezing or Shortness of Breath. hydrOXYzine Yes [id number] 25mg Take 1 Univers 25 mg 1-05 tablet by ity of tablet 00:00: mouth [place] 00 every 6 Medical (six) Branch hours as needed for Itching. amoxicillin 2020- No [id number] 1{tbl} Take 1 Univers -clavulanat 05-30 tablet [...] 03:01:00 105 mm[Hg] Univer sity of pressure [facility] Diastolic blood 2020-05-31 03:01:00 71 mm[Hg] Unive rsity of pressure [place] [facility] Heart rate 2020-05-31 03:01:00 73 /min [facility] [place] [facility] [place] Body temperature 2020-05-31 03:01:00 36.56 Yanet Univ ersity of [facility] Respiratory rate 2020-05-31 03:01:00 18 /min Univ ersity of [facility] Oxygen saturation in 2020-05-31 03:01:00 98 /min University of Arterial blood by [facility] Pulse oximetry Branch Body height 2020-05-30 21:27:00 180.3 cm [facility] [place] [facility] [place] Body weight 2020-05-30 21:27:00 92.987 kg Universi ty of [facility] BMI 2020-05-30 21:27:00 28.59 kg/m2 Universi ty [facility] Systolic blood 2020-05-31 03:01:00 105 mm[Hg] Univer sity of pressure [facility] Diastolic blood 2020-05-31 03:01:00 71 mm[Hg] Unive rsity of pressure [facility] Heart rate 2020-05-31 03:01:00 73 /min [facility] [place] [facility] [place] Body temperature 2020-05-31 03:01:00 36.56 Yanet [facility] Respiratory rate 2020-05-31 03:01:00 18 /min [facility] [place] [facility] [place] Oxygen saturation in 2020-05-31 03:01:00 98 /min University of Arterial blood by [facility] Pulse oximetry Branch Body height 2020-05-30 21:27:00 180.3 cm [facility] [place] [facility] [place] Body weight 2020-05-30 21:27:00 92.987 kg Universi ty [facility] BMI 2020-05-30 21:27:00 28.59 kg/m2 Universi ty [facility] Procedures Procedure Date / Time Performed Performing Clinician Sourc e URINALYSIS 2020-05-31 03:43:00 Zoe Navas [facility] CT CHEST PULMONARY 2020-05-31 01:43:20 Zoe Navas [facility] ANGIOGRAM Medical Branch POCT TEST 2020-05-31 01:29:00 Zoe Navas [facility] Branch COVID-19 (ID NOW RAPID 2020-05-31 00:53:00 Zoe Navas [facility] TESTING) Medical Branch XR CHEST 1 VW 2020-05-31 00:09:22 Zoe Navas [facility] TROPONIN I 2020-05-31 00:03:00 Zoe Navas [facility] COMP. METABOLIC PANEL 2020-05-31 00:03:00 Zoe Navas [facility] ([id number]) Medical Branch CBC WITH DIFF 2020-05-31 00:03:00 Zoe Navas [facility] D-DIMER 2020-05-31 00:03:00 Zoe Navas [facility] NOTICE OF PRIVACY 2020-05-30 21:02:17 Doctor Unassigned, No Univ [facility] PRACTICES Name Medical Branch Encounters Start End Encounter Admission Attending Care Care Encounter Source Date/Time Date/Time Type Type Clinicians Facility Department ID 2020-09-07 2020-09-07 Outpatient DERECK HINDS [facility] [id number] [place] 00:00:00 00:00:[address] 2020-09-07 2020-09-07 Outpatient DERECK HINDS [facility] [id number] [place] 00:00:00 00:00:[address] 2020-09-07 2020-09-07 Outpatient DERECK HINDS [facility] [id number] [place] 00:00:00 00:00:[address] 2020-09-07 2020-09-07 Outpatient LIZETDERECK [facility] [id number] [place] 00:00:00 00:00:[address] 2020-05-30 2020-05-30 [id number] 16:01:00 23:26:00 Zoe Ayala [id number] [place] [id number] [place] [id number] 2020-05-30 2020-05-30 Emergency Charity [facility] [id number] [facility] 16:01:00 23:26:00 Zoe Ayala [id number] i [facility] [id number] [facility] [id number] [facility] 084 Branch 2020-05-30 2020-05-30 Emergency X RUST ERT [id number] Univers 15:03:00 15:03:00 ity [facility] Results Test Description Test Time Test Comments Results Result Comments Source URINALYSIS 2020-05-31 04:33:00 Test Item Value Reference Range Interpretation Comme nts APPEARANCE (test code = Clear Clear 0861638647) COLOR (test code = 8867835935) Yellow Yellow PH (test code = 8118176372) 4.8-8.0 SP GRAVITY (test code = 1.003-1.030 H 7690620614) GLU U QUAL (test code = Normal Normal 0753500508) BLOOD (test code = 7829764468) Negative Negative KETONES (test code = 5497816857) Negative Negative PROTEIN (test code = 2887-8) Negative Negative UROBILIN (test code = 5193953811) Normal Normal BILIRUBIN (test code = Negative Negative 1263206097) NITRITE (test code = 9390242413) Negative Negative LEUK VY (test code = Negative Negative 0092536982) RBC/HPF (test code = 5784126848) See_Comment [Automated message] The system which ge nerated this result transmit justino reference range: 0 - 3 HP F. The reference range was not used to interpret th is result as normal/abnormal . WBC/HPF (test code = 3530438243) <1 See_Comment [Automated message] The system which ge nerated this result transmit justino reference range: 0 - 5 HP F. The reference range was not used to interpret th is result as normal/abnormal . BACTERIA (test code = 9584242164) Few Negative A SQ EPITH (test code = 9152356077) <1 HPF Lab Interpretation (test code = Abnormal 13871-5) [facility] [id number] 02:56:04Impression: 1. Patchy ground glass opacities, predominating [...] the spine. No acutebony abnormalities are evident. [facility], Radiant Results Inft User -05/30/2020 8:57 PM [...] in appearance.4. Cholecyste ctomy.RL: 460End of Report [facility] 1 [id number] 02:20:50Impression: No acute abnormalities evident. RL: 460 [...] - 05/30/2020 8:21 PM CSTOrdering Physician: ZOE NVAASHistory: Short of breathTechnique: Chest, single viewComparison: NoneFindings: The lungs are clear. No pleural effusions are evident. Heart size isnormal. The superior mediastinal silhouette is unremarkable for age andprojection. Surgical clips are seen within the right upper quadrant of theabdomen. No acute bony abnormalities are evident.IMPRESSIONImpression:No acute abnormalities evident.RL: 460End of Report [facility] [id number] 01:29:00 Test Item Value Reference Range Interpretation Comments POCT PREG (test code = Hysterectomy HX of Hysterectomy 1605) Lab Interpretation Normal (test code = 89891-0) [facility]ID NOW RAPID TESTING)2020-05-31 01:23:00 Test Item Value Reference Range Interpretation Comments SARS-CoV-2 Rapid ID NOW Not Detected Not Detected (test code = 71847-5) JASMEET (test code = JASMEET) ID NOW COVID-19 Assay is an isothermal nucleic acid amplification test intended for the qualitative detection of nucleic acid from SARS-CoV-2 viral RNA in nasopharyngeal (NETWORK [employer] INSTRUCTOR) specimens. It is used under Emergency Use [...] indicated. Lab Interpretation Normal (test code = 91155-5) [facility] [id number] 00:41:00 Test Item Value Reference Range Interpretation Comments TROPONIN I (test <0.012 See_Comment [Automated code = 5914845332) message] The system which generated this result [...] ? Lab Interpretation Normal (test code = 19168-3) [facility] (30222)2020-05-31 00:32:00 Test Item Value Reference Range Interpretation Comments NA (test code = 138 mmol/L 135-145 6293484722) K (test code = 4.0 mmol/L 3.5-5 2933498567) CL (test code = 101 mmol/L 98-108 6612721259) CO2 TOTAL (test code = 27 mmol/L 23-31 3423556165) AGAP (test code = 2-16 8222660942) BUN (test code = 5 mg/dL 7-23 L 1619970709) GLUCOSE (test code = 136 mg/dL 70-110 H 1050403848) CREATININE (test code = 0.56 mg/dL 0.5-1.04 2111124933) TOTAL BILI (test code = 0.4 mg/dL 0.1-1.7 5283094206) CALCIUM (test code = 9.0 mg/dL 8.6-10.6 1525589832) T PROTEIN (test code = 8.3 g/dL 6.3-8.2 H 5216200936) ALBUMIN (test code = 4.6 g/dL 3.5-5 6899890717) ALK PHOS (test code = 93 U/L 34-122 7354865176) ALTv (test code = 21 U/L 5-35 1742-6) AST(SGOT) (test code = 25 U/L 13-40 0291242849) eGFR Calculation mL/min/1.73m2 (Non-) (test code = 2870588783) eGFR Calculation mL/min/1.73m2 () (test code = 4255128799) JASMEET (test code = JASMEET) Association of [...] tests). Lab Interpretation Abnormal (test code = 90658-8) [facility]-[id number] 00:30:00 Test Item Value Reference Interpretation Comments Range D-DIMER (test code = See_Comment H [Autom ated 9010268123) message] The system which generated this result [...] diagnosis. Lab Interpretation Abnormal (test code = 87606-3) [facility] WITH [id number] 00:13:00 Test Item Value Reference Range Interpretation [...] RDW-SD (test code = 40.5 fL 39-49.9 04812-7) RDW-CV (test code = 12.2 % 12-15.5 788-0) PLT (test code = See_Comment [Automated 777-3) message] The system which generated this result transmit justino reference range : 166 - 358 10*3/ ?L. The reference range was not u sed to interpret th is result as normal/abnormal . MPV (test code = 9.4 fL 9.5-12.9 L 31256-6) NRBC/100 WBC (test See_Comment [Automat ed code = 8199559088) message] The system which generated this result transmit justino reference range : 0.0 - 10.0 /100 WBCs. The reference range was not used to interpret this result as normal/abnormal . NRBC x10^3 (test code <0.01 See_Comment [Auto mated = 6745655855) message] The system which generated this result transmit justino reference range : 10*3/?L. The reference range was not used to interpret this result as normal/abnormal . GRAN MAT (NEUT) % 93.5 % (test code = 770-8) IMM GRAN % (test code 0.80 % = 8586553748) LYMPH % (test code = 4.8 % 736-9) MONO % (test code = 0.6 % 5905-5) EOS % (test code = 0.1 % 713-8) BASO % (test code = 0.2 % 706-2) GRAN MAT x10^3(ANC) 13.73 10*3/uL 1.88-7.09 H (test code = 4846322255) IMM GRAN x10^3 (test 0.12 10*3/uL 0-0.06 H code = 2819883521) LYMPH x10^3 (test code 0.71 10*3/uL 1.32-3.29 L = 731-0) MONO x10^3 (test code 0.09 10*3/uL 0.33-0.92 L = 742-7) EOS x10^3 (test code = <0.03 0.03-0.39 L 711-2) BASO x10^3 (test code 0.03 10*3/uL 0.01-0.07 = 704-7) Lab Interpretation Abnormal (test code = 04909-7) [facility]
[2021-08-21 17:55] LABS: Urine Blood Negative (Negative); Urine Glucose Negative (Negative); Urine Protein Negative (Negative); Urine Specific Gravity 1.015 (1.005-1.030)
[2021-08-21 17:56] LABS: Absolute Lymphocytes (CBC) 2.6 K/uL (0.7-4.9); Lymphocytes % 28.4 % (15.3-44.8); RBC Red Blood Cell Count 4.18 M/uL (3.86-4.86)
[2021-08-21 18:04] LABS: Magnesium 2.2 mg/dL (1.8-2.4); Potassium 3.8 mmol/L (3.5-5.1)
[2021-08-21 18:26] LABS: Urine Specific Gravity/Preg 1.015 (1.005-1.030)
[2021-08-21 18:39] LABS: Urine Bacteria >50 /HPF (<20); Urine RBC <5 /HPF (NONE SEEN)
--- NOTE | 2021-08-21 19:05 | EDPHYS ---
Physician Documentation [facility] Name: Naz Boyle Age: 41 yrs Sex: Female : 1980 Arrival Date: 08/21/2021 Time: 16:49 Bed 25 Private MD: ED Physician Peng Hdez HPI: 08/21 19:00 This 41 yrs old Female presents to ER via Wheelchair with complaints of Seizure. jr8 19:00 The patient presents after having a single isolated seizure. Character of seizure(s): jr8 Motor activity: generalized. Seizure onset: just prior to arrival. Context: the seizure(s) was witnessed, by family, occurred at home, occurred while the patient was at rest. Seizure Hx: Original onset: longstanding. Current symptoms: decreased level of consciousness, is sleeping but easy to arouse. The patient has experienced similar episodes in the past, several times. The patient has not recently seen a physician. This is a 41-year-old female patient with a history of seizure disorder that presented to the emergency room with generalized tonic clonic seizure at home prior to arrival. Has been a patient stated that he normally does not bring her unless she has a full generalized seizure. Patient apparently has been off of her meds for the past month or so due to financial constraints. Denies any other complaints at this time. Historical: - Allergies: 17:04 No Known Allergies; ld1 - Home Meds: 17:04 trazodone 150 mg Oral tab [Active]; levothyroxine 175 mcg tab 1 tab once daily ld1 [Active]; aspirin 81 mg Oral TbEC 1 tab once daily [Active]; Crestor 10 mg Oral tab 1 tab once daily [Active]; midodrine 2.5 mg Oral tab 1 tab 3 times per day [Active]; Vimpat 50 mg Oral tab 1 tab 2 times per day [Active]; hydroxychloroquine 200 mg Oral tab 1 tab once daily [Active]; Keppra 1500 mg Oral 2 times per day [Active]; gabapentin 100 mg Oral tab every 6 hours [Active]; Ubrelvy 50 mg Oral tab as needed [Active]; Topamax 25 mg Oral tab as needed [Active]; - PMHx: 17:04 BRADYCARDIA; Seizure; Seizures; CVA; Lupus; Rheumatoid Arthritis; INSOMNIA; SVT; ld1 hypotension; Hypercholesterolemia; Hypothyroidism; Migraine; PERIPHERAL NEUROPATHY; RLS; - PSHx: 17:04 Appendectomy; carpal tunnel luis miguel hands; Cholecystectomy; Total abdominal hysterectomy; ld1 - Immunization history:: Adult Immunizations up to date, Client reports receiving the 2nd dose of the Covid vaccine. - Social history:: Smoking status: Patient denies any tobacco usage or history of. Patient/guardian denies using alcohol. ROS: 19:00 Eyes: Negative for injury, pain, redness, and discharge, ENT: Negative for injury, jr8 pain, and discharge, Neck: Negative for injury, pain, and swelling, Cardiovascular: Negative for chest pain, palpitations, and edema, Respiratory: Negative for shortness of breath, cough, wheezing, and pleuritic chest pain, Abdomen/GI: Negative for abdominal pain, nausea, vomiting, diarrhea, and constipation, Back: Negative for injury and pain, MS/Extremity: Negative for injury and deformity, Skin: Negative for injury, rash, and discoloration. 19:00 Neuro: Positive for seizure activity. Exam: 19:00 Constitutional: This is a well developed, well nourished patient who is awake, alert, jr8 and in no acute distress. Eyes: Pupils equal round and reactive to light, extra-ocular motions intact. Lids and lashes normal. Conjunctiva and sclera are non-icteric and not injected. Cornea within normal limits. Periorbital areas with no swelling, redness, or edema. ENT: Nares patent. No nasal discharge, no septal abnormalities noted. Tympanic membranes are normal and external auditory canals are clear. Oropharynx with no redness, swelling, or masses, exudates, or evidence of obstruction, uvula midline. Mucous membranes moist. Neck: Trachea midline, no thyromegaly or masses palpated, and no cervical lymphadenopathy. Supple, full range of motion without nuchal rigidity, or vertebral point tenderness. No Meningismus. Cardiovascular: Regular rate and rhythm with a normal S1 and S2. No gallops, murmurs, or rubs. Normal PMI, no JVD. No pulse deficits. Respiratory: Lungs have equal breath sounds bilaterally, clear to auscultation and percussion. No rales, rhonchi or wheezes noted. No increased work of breathing, no retractions or nasal flaring. Abdomen/GI: Soft, non-tender, with normal bowel sounds. No distension or tympany. No guarding or rebound. No evidence of tenderness throughout. Skin: Warm, dry with normal turgor. Normal color with no rashes, no lesions, and no evidence of cellulitis. MS/ Extremity: Pulses equal, no cyanosis. Neurovascular intact. Full, normal range of motion. Neuro: Awake and alert, GCS 15, oriented to person, place, time, and situation. Cranial nerves II-XII grossly intact. Motor strength 5/5 in all extremities. Sensory grossly intact. Vital Signs: 17:04 BP 111 / 80; Pulse 74; Resp 8; Temp 99.2(O); Pulse Ox 98% on R/A; Weight 104.33 kg; ld1 Height 5 ft. 11 in. (180.34 cm); Pain 10/10; 19:23 BP 107 / 88; Pulse 72; Resp 12; Pulse Ox 98% on R/A; ld1 17:04 Body Mass Index 32.08 (104.33 kg, 180.34 cm) ld1 [place] Coma Score: 17:04 Eye Response: spontaneous(4). Verbal Response: oriented(5). Motor Response: obeys ld1 commands(6). Total: 15. MDM: 17:17 Patient medically screened. jr8 19:00 Data reviewed: vital signs, nurses notes, lab test result(s), and as a result, I will jr8 discharge patient. Data interpreted: Pulse oximetry: on room air is 98 %. Interpretation: normal. Counseling: I had a detailed discussion with the patient and/or guardian regarding: the historical points, exam findings, and any diagnostic results supporting the discharge/admit diagnosis, lab results, the need for outpatient follow up, a neurologist, to return to the emergency department if symptoms worsen or persist or if there are any questions or concerns that arise at home. ED course: Patient hemodynamically stable and afebrile. No current further seizures while in the emergency room. Patient overall doing better. Currently back at baseline. Will discharge home to follow-up with neurology.. 08/21 17:27 Order name: CBC with Diff; Complete Time: 18:16 jr8 08/21 17:27 Order name: Basic Metabolic Panel; Complete Time: 18:14 jr8 08/21 17:27 Order name: Magnesium; Complete Time: 18:14 jr8 08/21 17:55 Order name: Urine Dipstick-Ancillary; Complete Time: 18:00 EDMS 08/21 17:59 Order name: Urine --Ancillary (enter results); Complete Time: 19:04 bd 08/21 18:14 Order name: Urine Microscopic Only; Complete Time: 19:04 jr8 08/21 17:27 Order name: IV; Complete Time: 17:36 jr8 08/21 17:27 Order name: Urine Dipstick-Ancillary (obtain specimen); Complete Time: 17:55 jr8 08/21 18:41 Order name: Urine Culture EDMS Administered Medications: No medications were administered Disposition: 21:56 Co-signature as Attending Physician, Peng Hdez DO I was immediately available on-site ms3 in the Emergency Department for consultation in the care of the patient.. Disposition Summary: 08/21/21 19:04 Discharge Ordered Location: Home jr8 Problem: new jr8 Symptoms: have improved jr8 Condition: Stable jr8 Diagnosis - Other seizures jr8 - UTI/ Urinary tract infection, site not specified jr8 Followup: jr8 - With: Private Physician - When: 2 - 3 days - Reason: Recheck today's complaints, Continuance of care, Re-evaluation by your physician Discharge Instructions: - Discharge Summary Sheet jr8 - Seizure, Adult jr8 Forms: - Medication Reconciliation Form jr8 - Thank You Letter jr8 - Antibiotic Education jr8 - Prescription Opioid Use jr8 Prescriptions: - Keppra 750 mg Oral Tablet - take 2 tablet by ORAL route every 12 hours; 120 tablet; Refills: 0, Product jr8 Selection Permitted - Augmentin 875-125 mg Oral Tablet - take 1 tablet by ORAL route every 12 hours for 7 days; 14 tablet; Refills: 0, jr8 Product Selection Permitted Signatures: Dispatcher [employer] EDMS Vicente Ireland PA PA jr8 Peng Hdez DO DO ms3 Princess Adam RN RN ld1
--- NOTE | 2021-08-21 19:05 | ER ---
Nurse's Notes [facility] Name: Naz Boyle Age: 41 yrs Sex: Female : 1980 Arrival Date: 08/21/2021 Time: 16:49 Bed 25 Private MD: Diagnosis: Other seizures;UTI/ Urinary tract infection, site not specified Presentation: 08/21 17:04 Chief complaint: Spouse and/or significant other states: Reporting a seizure 30 minutes ld1 prior to arrival. Denies LOC - pt was laying in bed. states "It lasted less than 5 minutes.". Coronavirus screen: At this time, the client does not indicate any symptoms associated with coronavirus-19. Ebola Screen: No symptoms or risks identified at this time. Initial Sepsis Screen: Does the patient meet any 2 criteria? No. Patient's initial sepsis screen is negative. Does the patient have a suspected source of infection? No. Patient's initial sepsis screen is negative. Risk Assessment: Do you want to hurt yourself or someone else? Patient reports no desire to harm self or others. Onset of symptoms was August 21, 2021. 17:04 Method Of Arrival: Wheelchair ld1 17:04 Acuity: MIGUEL 3 ld1 Triage Assessment: 17:04 General: Appears in no apparent distress. comfortable, Behavior is calm, cooperative, ld1 appropriate for age. Pain: Complains of pain in face Pain does not radiate. Pain currently is 10 out of 10 on a pain scale. Quality of pain is described as throbbing, Pain began suddenly. EENT: No signs and/or symptoms were reported regarding the EENT system. Neuro: Level of Consciousness is awake, alert, obeys commands, Oriented to person, place, time, situation, Appropriate for age Reports headache. Cardiovascular: Capillary refill < 3 seconds Patient's skin is warm and dry. Rhythm is sinus rhythm. Respiratory: Airway is patent Respiratory effort is even, unlabored. GI: Abdomen is round non-distended. GI: Reports nausea. : No signs and/or symptoms were reported regarding the genitourinary system. Derm: No signs and/or symptoms reported regarding the dermatologic system. Musculoskeletal: No signs and/or symptoms reported regarding the musculoskeletal system. Historical: - Allergies: 17:04 No Known Allergies; ld1 - Home Meds: 17:04 trazodone 150 mg Oral tab [Active]; levothyroxine 175 mcg tab 1 tab once daily ld1 [Active]; aspirin 81 mg Oral TbEC 1 tab once daily [Active]; Crestor 10 mg Oral tab 1 tab once daily [Active]; midodrine 2.5 mg Oral tab 1 tab 3 times per day [Active]; Vimpat 50 mg Oral tab 1 tab 2 times per day [Active]; hydroxychloroquine 200 mg Oral tab 1 tab once daily [Active]; Keppra 1500 mg Oral 2 times per day [Active]; gabapentin 100 mg Oral tab every 6 hours [Active]; Ubrelvy 50 mg Oral tab as needed [Active]; Topamax 25 mg Oral tab as needed [Active]; - PMHx: 17:04 BRADYCARDIA; Seizure; Seizures; CVA; Lupus; Rheumatoid Arthritis; INSOMNIA; SVT; ld1 hypotension; Hypercholesterolemia; Hypothyroidism; Migraine; PERIPHERAL NEUROPATHY; RLS; - PSHx: 17:04 Appendectomy; carpal tunnel luis miguel hands; Cholecystectomy; Total abdominal hysterectomy; ld1 - Immunization history:: Adult Immunizations up to date, Client reports receiving the 2nd dose of the Covid vaccine. - Social history:: Smoking status: Patient denies any tobacco usage or history of. Patient/guardian denies using alcohol. Screenin:13 Abuse screen: Denies threats or abuse. Denies injuries from another. Nutritional ld1 screening: No deficits noted. Tuberculosis screening: No symptoms or risk factors identified. Fall Risk None identified. Assessment: 17:13 Reassessment: See triage assessment. ld1 19:23 Reassessment: Patient appears in no apparent distress at this time. No changes from ld1 previously documented assessment. Patient and/or family updated on plan of care and expected duration. Pain level reassessed. Patient is alert, oriented x 3, equal unlabored respirations, skin warm/dry/pink. Vital Signs: 17:04 BP 111 / 80; Pulse 74; Resp 8; Temp 99.2(O); Pulse Ox 98% on R/A; Weight 104.33 kg; ld1 Height 5 ft. 11 in. (180.34 cm); Pain 10/10; 19:23 BP 107 / 88; Pulse 72; Resp 12; Pulse Ox 98% on R/A; ld1 17:04 Body Mass Index 32.08 (104.33 kg, 180.34 cm) ld1 [place] Coma Score: 17:04 Eye Response: spontaneous(4). Verbal Response: oriented(5). Motor Response: obeys ld1 commands(6). Total: 15. ED Course: 16:49 Patient arrived in ED. ds1 16:58 Vicente Ireland PA is PHCP. jr8 16:58 Peng Hdez DO is Attending Physician. jr8 17:04 Princess Adam, LIZZY is Primary Nurse. ld1 17:04 Arm band placed on right wrist. ld1 17:10 Triage completed. ld1 17:13 Patient has correct armband on for positive identification. Placed in gown. Bed in low ld1 position. Call light in reach. Side rails up X2. manager monitoring on. Pulse ox on. NIBP on. Door closed. Noise minimized. Warm blanket given. 17:13 No provider procedures requiring assistance completed. ld1 17:22 Adult w/ patient. Seizure precautions initiated. 5 17:23 EKG done, by ED staff, reviewed by Vicente GILL. 5 19:23 IV discontinued, intact, bleeding controlled, No redness/swelling at site. ld1 Administered Medications: No medications were administered Outcome: 19:04 Discharge ordered by . [facility] 19:23 Discharged to home via wheelchair, with family. ld1 19:23 Condition: stable 19:23 Discharge instructions given to patient, family, Instructed on discharge instructions, follow up and referral plans. medication usage, Demonstrated understanding of instructions, follow-up care, medications, Prescriptions given X 2. 19:23 Patient left the ED. ld1 Signatures: Nereyda Lazo ds1 Vicente Ireland PA PA jr8 Martinez, [facility] Princess Adam, RN RN ld1
[2021-08-21 19:28] VITALS: TEMP 99.2; O2SAT 98
[2021-08-21 19:30] VITALS: BP 107/88
--- NOTE | 2021-08-22 07:54 | EKG ---
Test Date: 2021-08-21 Test Time: 17:15:07 Price Accuracy Supervisor: HERMILA MEASUREMENT RESULTS: Intervals: Rate: 70 TN: 136 QRSD: 78 QT: 428 QTc: 462 [place]: P: 40 TN: 136 QRS: 42 T: 1 INTERPRETIVE STATEMENTS: Normal sinus rhythm Normal ECG Compared to ECG 05/01/2021 15:31:00 Sinus arrhythmia no longer present Electronically Signed On 08-22-21 07:52:33 CDT by Clement Dawson
== END 2021-08-21 19:23 | disposition home or self-care (01) ==
LOC: ER 16:48
DX: N39.0 Urinary tract infection, site not specified (principal); E03.9 Hypothyroidism, unspecified; E78.00 Pure hypercholesterolemia, unspecified; G62.9 Polyneuropathy, unspecified; Z86.73 Personal history of transient ischemic attack (TIA), and cerebral infarction without residual deficits; Z79.82 Long term (current) use of aspirin
CPT/HCPCS: 36415; 80048; 81003; 81015; 81025; 83735; 85025; 87077; 87086; 87088; 87186; 93005; 99284

== ENCOUNTER 2021-11-03 10:41 | Emergency (ER) | payer BC, SELFPAY ==
--- OUTSIDE RECORDS SUMMARY | 2021-11-03 10:45 | XMS REPORT | Continuity of Care Document ---
:1980 Author Organization [facility] t Address [address] [place] [address] Care Team Providers Name Role Phone LIZET Attending Clinician Unavailable Akiko Raymond Attending Clinician Payers Payer Name Policy Type Policy Number Effective Date Expiration Date S ource Problems Condition Condition Condition Status Onset Resolution Last Treating Co mments Source Name Details Category Date Date Treatment Clinician Date No known No known Disease Unive rs active active ity of problems problems [facility] Allergies, Adverse Reactions, Alerts Allergy Allergy Status Severity Reaction(s) Onset Inactive Treating Comm ents Source Name Type Date Date Clinician NO KNOWN Drug Active Univers ALLERGIE Class ity of S [facility] Social History Social Habit Start Date Stop Date Quantity Comments Source Sex Assigned At Uni versity [facility] Exposure to SARS-CoV-2 Not sure [facility] [place] (event) [facility] Smoking Status Start Date Stop Date Source Unknown if ever smoked Universit y [facility] Medications Ordered Filled Start Stop Current Ordering Indication Dosage Frequency Signature Comments Components Source Medication Medication Date Date Medication? Clinician (SIG) Name Name amoxicillin 2020- No 1{tbl} 1 tablet, Univers -clavulanat 05-31 Oral, ONCE i ty of e 05:00: 04:02 NOW, 1 [place] (AUGMENTIN) 00 :00 dose, Tue Med ical 875-125 mg 05/30/20 at Bran ch per tablet 2300, 1 tablet Routine
Reason for Anti-Infec tive: Documented Infection< br>Documen justino Infection Site: Respirator y
Durat ion of Therapy: Other (see Comments) ketorolac No 15mg 15 mg, [facility] (TORADOL) 05-31 Slow IV ity of injection 03:30: 02:26 Push, [place] 15 mg 00 :00 ONCE, 1 Medical dose, [facility] 05/30/20 at 2130, EVANS
Fa culty member approving Restricted medication : ZOE NAVAS hydrOXYzine 2020- No 25mg 25 mg, Uni vers (ATARAX) 05-31 Oral, ity of tablet 25 03:30: 02:26 [place]CE[place] mg 00 :00 dose, [facility] 05/30/20 at Branch 2130, EVANS famotidine 2020- No 20mg 20 mg, Univ ers (PEPCID 05-31 Slow IV ity of (PF)) 03:30: 02:26 Push, [place] injection 00 :00 ONCE, 1 Medical 20 mg dose, [facility] 05/30/20 at 2130, EVANS iohexol 2020- No 100mL 100 mL, [facility] (OMNIPAQUE 05-31 Intravenou it y of 350 01:45: 01:37 s, ONCE, 1 [place] BULK-150 00 :00 dose, [facility] Medica l mL) 05/30/20 at Branch injection 1944, 100 mL Routine butalbital- 2020- No 1{tbl} 1 tablet, Univers acetaminoph 05-31 Oral, ONCE i ty of en-caff 01:45: 00:52 NOW, 1 [place] (ESGIC) 00 :00 dose, [facility] Medical 50-325-40 05/30/20 at [facility] h mg tablet 1 1944, tablet Routine diphenhydrA No 50mg 50 mg, Uni vers MINE 05-31 Slow IV ity of (BENADRYL) 00:15: 00:52 Push, [place] injection 00 :00 ONCE, 1 Medical 50 mg dose, [facility] 05/30/20 at 1815, STAT methylPREDN 2020- No 40mg 40 mg, IV Univers ISolone sod 05-31 Piggyback, i ty of succ 00:15: 00:52 ONCE, 1 [place] (SOLU-MEDRO 00 :00 dose, Tue Med ical L (PF)) 05/30/20 at Branch injection 1815, STAT 40 mg NaCl 0.9% 2020- No 1000mL at 999 Uni vers (NS) bolus 05-30 mL/hr, ity of infusion 23:15: 02:15 1,000 mL, Toney as 1,000 mL 00 :00 IV Medical Infusion, Branch ONCE, 1 dose, 05/30/20 at 1715, EVANS albuterol Yes [id number] 2{puff} Inhale 2 Univers 90 1-05 Puffs ity of mcg/actuati 00:00: every 4 [place]oney as on inhaler 00 (four) Medical hours as Branch needed for Wheezing or Shortness of Breath. hydrOXYzine Yes [id number] 25mg Take 1 Univers 25 mg 1-05 tablet by ity of tablet 00:00: mouth [place] 00 every 6 Medical (six) Branch hours as needed for Itching. amoxicillin 2020- No [id number] 1{tbl} Take 1 Univers -clavulanat 05-30 tablet [...] 03:01:00 105 mm[Hg] Univer sity of pressure [facility] Diastolic blood 2020-05-31 03:01:00 71 mm[Hg] Unive rsity of pressure [place] [facility] Issue Heart rate 2020-05-31 03:01:00 73 /min [facility] [place] [facility] Body temperature 2020-05-31 03:01:00 36.56 Yanet Univ ersity of [facility] Respiratory rate 2020-05-31 03:01:00 18 /min Univ ersity of [facility] Oxygen saturation in 2020-05-31 03:01:00 98 /min University of Arterial blood by [facility] Pulse oximetry Branch Body height 2020-05-30 21:27:00 180.3 cm [facility] [place] [facility] Body weight 2020-05-30 21:27:00 92.987 kg Universi ty of [facility] BMI 2020-05-30 21:27:00 28.59 kg/m2 Universi ty [facility] Systolic blood 2020-05-31 03:01:00 105 mm[Hg] Univer sity of pressure [facility] Diastolic blood 2020-05-31 03:01:00 71 mm[Hg] Unive rsity of pressure [facility] Heart rate 2020-05-31 03:01:00 73 /min [facility] [place] [facility] Body temperature 2020-05-31 03:01:00 36.56 [facility] Respiratory rate 2020-05-31 03:01:00 18 /min [facility] [place] [facility] Oxygen saturation in 2020-05-31 03:01:00 98 /min University of Arterial blood by [facility] Pulse oximetry Branch Body height 2020-05-30 21:27:00 180.3 cm [facility] [place] [facility] Body weight 2020-05-30 21:27:00 92.987 kg Universi ty [facility] BMI 2020-05-30 21:27:00 28.59 kg/m2 Universi ty [facility] Procedures Procedure Date / Time Performed Performing Clinician Sourc e URINALYSIS 2020-05-31 03:43:00 Zoe Navas [facility] CT CHEST PULMONARY 2020-05-31 01:43:20 [facility] ANGIOGRAM Medical Branch POCT TEST 2020-05-31 01:29:00 Zoe Navas [facility] Branch COVID-19 (ID NOW RAPID 2020-05-31 00:53:00 Zoe Navas [facility] TESTING) Medical Branch XR CHEST 1 VW 2020-05-31 00:09:22 Zoe Navas [facility] TROPONIN I 2020-05-31 00:03:00 Zoe Navas [facility] COMP. METABOLIC PANEL 2020-05-31 00:03:00 Zoe Navas [facility] ([id number]) Medical Branch CBC WITH DIFF 2020-05-31 00:03:00 Zoe Navas [facility] D-DIMER 2020-05-31 00:03:00 Zoe Navas [facility] NOTICE OF PRIVACY 2020-05-30 21:02:17 Doctor Unassigned, No Univ [facility] PRACTICES Name Medical Branch Encounters Start End Encounter Admission Attending Care Care Encounter Source Date/Time Date/Time Type Type Clinicians Facility Department ID 2020-09-07 2020-09-07 Outpatient [facility] [id number] [place] 00:00:00 00:00:[address] 2020-09-07 2020-09-07 Outpatient [facility] [id number] [place] 00:00:00 00:00:[address] 2020-09-07 2020-09-07 Outpatient [facility] [id number] [place] 00:00:00 00:00:[address] 2020-09-07 2020-09-07 [facility] [id number] [place] 00:00:00 00:00:[address] 2020-05-30 2020-05-30 [id number] 16:01:00 23:26:00 Zoe Ayala [id number] [facility] [id number] [place] [id number] 2020-05-30 2020-05-30 Emergency [facility] [id number] [facility] 16:01:00 23:26:00 Zoe Ayala [id number] i [facility] [id number] [facility] [id number] [facility] 084 Branch 2020-05-30 2020-05-30 Emergency X [facility] ERT [id number] Univers 15:03:00 15:03:00 ity [facility] Results Test Description Test Time Test Comments Results Result Comments Source URINALYSIS 2020-05-31 04:33:00 Test Item Value Reference Range Interpretation Comme nts APPEARANCE (test code = Clear Clear 7367077839) COLOR (test code = 1485215756) Yellow Yellow PH (test code = 0417248960) 4.8-8.0 SP GRAVITY (test code = 1.003-1.030 H 5787383050) GLU U QUAL (test code = Normal Normal 8926302482) BLOOD (test code = 0817409860) Negative Negative KETONES (test code = 6745318046) Negative Negative PROTEIN (test code = 2887-8) Negative Negative UROBILIN (test code = 6785752829) Normal Normal BILIRUBIN (test code = Negative Negative 5382421562) NITRITE (test code = 2551765995) Negative Negative LEUK VY (test code = Negative Negative 0072039406) RBC/HPF (test code = 8268798846) See_Comment [Automated message] The system which ge nerated this result transmit justino reference range: 0 - 3 HP F. The reference range was not used to interpret th is result as normal/abnormal . WBC/HPF (test code = 8245240090) <1 See_Comment [Automated message] The system which ge nerated this result transmit justino reference range: 0 - 5 HP F. The reference range was not used to interpret th is result as normal/abnormal . BACTERIA (test code = 5542564394) Few Negative A SQ EPITH (test code = 8852359553) <1 HPF Lab Interpretation (test code = Abnormal 37322-1) [facility] [id number] 02:56:04Impression: 1. Patchy ground glass opacities, predominating [...] the spine. No acutebony abnormalities are evident. [facility], Radiant Results Inft User -05/30/2020 8:57 PM [...] in appearance.4. Cholecyste ctomy.RL: 460End of Report [facility] [id number] 02:20:50Impression: No acute abnormalities evident. RL: 460 [...] evident.IMPRESSIONImpression:No acute abnormalities evident.RL: 460End of Report [facility] [id number] 01:29:00 Test Item Value Reference Range Interpretation Comments POCT PREG (test code = Hysterectomy HX of Hysterectomy 1605) Lab Interpretation Normal (test code = 91778-5) [facility] NOW RAPID TESTING)2020-05-31 01:23:00 Test Item Value Reference Range Interpretation Comments SARS-CoV-2 Rapid ID NOW Not Detected Not Detected (test code = 09550-2) JASMEET (test code = JASMEET) ID NOW COVID-19 Assay is an isothermal nucleic acid amplification test intended for the qualitative detection of nucleic acid from SARS-CoV-2 viral RNA in nasopharyngeal (GAS PROVER) specimens. It is used under Emergency Use [...] indicated. Lab Interpretation Normal (test code = 13404-4) [facility] [id number] 00:41:00 Test Item Value Reference Range Interpretation Comments TROPONIN I (test <0.012 See_Comment [Automated code = 6789941614) message] The system which generated this result [...] ? Lab Interpretation Normal (test code = 41311-1) [facility] (48816)2020-05-31 00:32:00 Test Item Value Reference Range Interpretation Comments NA (test code = 138 mmol/L 135-145 6049498716) K (test code = 4.0 mmol/L 3.5-5 6298873656) CL (test code = 101 mmol/L 98-108 3019273214) CO2 TOTAL (test code = 27 mmol/L 23-31 8000599182) AGAP (test code = 2-16 8931924275) BUN (test code = 5 mg/dL 7-23 L 0133117080) GLUCOSE (test code = 136 mg/dL 70-110 H 8238356633) CREATININE (test code = 0.56 mg/dL 0.5-1.04 4122623477) TOTAL BILI (test code = 0.4 mg/dL 0.1-1.4 7699886672) CALCIUM (test code = 9.0 mg/dL 8.6-10.6 2846305309) T PROTEIN (test code = 8.3 g/dL 6.3-8.2 H 6787378745) ALBUMIN (test code = 4.6 g/dL 3.5-5 0072963863) ALK PHOS (test code = 93 U/L 34-122 7075466975) ALTv (test code = 21 U/L 5-35 1742-6) AST(SGOT) (test code = 25 U/L 13-40 0630616054) eGFR Calculation mL/min/1.73m2 (Non-) (test code = 2407399128) eGFR Calculation mL/min/1.73m2 () (test code = 7824513693) JASMEET (test code = JASMEET) Association of [...] tests). Lab Interpretation Abnormal (test code = 88387-4) [facility]-[id number] 00:30:00 Test Item Value Reference Interpretation Comments Range D-DIMER (test code = See_Comment H [Autom ated 7425863666) message] The system which generated this result [...] diagnosis. Lab Interpretation Abnormal (test code = 44741-9) [facility] WITH [id number] 00:13:00 Test Item Value Reference Range Interpretation [...] RDW-SD (test code = 40.5 fL 39-49.9 04396-4) RDW-CV (test code = 12.2 % 12-15.5 788-0) PLT (test code = See_Comment [Automated 777-3) message] The system which generated this result transmit justino reference range : 166 - 358 10*3/ ?L. The reference range was not u sed to interpret th is result as normal/abnormal . MPV (test code = 9.4 fL 9.5-12.9 L 86462-1) NRBC/100 WBC (test See_Comment [Automat ed code = 3072632682) message] The system which generated this result transmit justino reference range : 0.0 - 10.0 /100 WBCs. The reference range was not used to interpret this result as normal/abnormal . NRBC x10^3 (test code <0.01 See_Comment [Auto mated = 1502233299) message] The system which generated this result transmit justino reference range : 10*3/?L. The reference range was not used to interpret this result as normal/abnormal . GRAN MAT (NEUT) % 93.5 % (test code = 770-8) IMM GRAN % (test code 0.80 % = 3049485733) LYMPH % (test code = 4.8 % 736-9) MONO % (test code = 0.6 % 5905-5) EOS % (test code = 0.1 % 713-8) BASO % (test code = 0.2 % 706-2) GRAN MAT x10^3(ANC) 13.73 10*3/uL 1.88-7.09 H (test code = 1175299493) IMM GRAN x10^3 (test 0.12 10*3/uL 0-0.06 H code = 8726063471) LYMPH x10^3 (test code 0.71 10*3/uL 1.32-3.29 L = 731-0) MONO x10^3 (test code 0.09 10*3/uL 0.33-0.92 L = 742-7) EOS x10^3 (test code = <0.03 0.03-0.39 L 711-2) BASO x10^3 (test code 0.03 10*3/uL 0.01-0.07 = 704-7) Lab Interpretation Abnormal (test code = 78294-7) [facility]
[2021-11-03] MEDS ORDERED: HYDROCODONE/APAP 10/325 TAB ONE ×2 (11:52→19:18)
--- NOTE | 2021-11-03 13:25 | RAD REPORT ---
EXAM DESCRIPTION: RAD - Shoulder Left 2 View - 11/03/2021 12:38 pm CLINICAL HISTORY: PAIN COMPARISON: None TECHNIQUE: Internal and external rotation views of the left shoulder were obtained. FINDINGS: There is no fracture or dislocation. AC joint is normal in appearance. No acute or suspici ous findings. IMPRESSION: Negative two-view left shoulder examination for acute findings.
--- NOTE | 2021-11-03 13:26 | RAD REPORT ---
EXAM DESCRIPTION: RAD - Knee Left 3 View - 11/03/2021 12:38 pm CLINICAL HISTORY: PAIN COMPARISON: No comparisons FINDINGS: AP, oblique and cross-table lateral views of the left knee obtained. No fracture, dislocation or periosteal reaction.No joint effusion seen. No joint space narrowing. No soft tissue abnormality. IMPRESSION: Negative left knee. Clinical concerns for internal derangement or occult bony injury could be further assessed with MR im aging.
--- NOTE | 2021-11-03 13:27 | RAD REPORT ---
EXAM DESCRIPTION: RAD - Ankle Left 3 View - 11/03/2021 12:38 pm CLINICAL HISTORY: PAIN COMPARISON: No comparisons FINDINGS: No fracture, dislocation or periosteal reaction. No joint effusion seen. No joint space na rrowing. Spurring is present at the Achilles attachment site. No soft tissue abnormality. IMPRESSION: Negative left ankle for fracture or other acute finding.
[2021-11-03 15:36] LABS: Absolute Lymphocytes (CBC) 3.3 K/uL (0.7-4.9); Hematocrit 38.1 % (36.0-45.0); MPV 7.4 fL (7.6-11.3)
[2021-11-03 15:50] LABS: Potassium 3.7 mmol/L (3.5-5.1)
--- NOTE | 2021-11-03 16:02 | RAD REPORT ---
EXAM DESCRIPTION: CT - Head Brain Wo Cont - 11/03/2021 3:42 pm CLINICAL HISTORY: Mental status change, unknown cause COMPARISON: Head Brain Wo Cont dated 05/02/2021 TECHNIQUE: Axial 5 mm thick images of the head were obtained without IV contrast. All CT scans are performed using dose optimization technique as appropriate and may include automated exposure control or mA/KV adjustment according to patient size. FINDINGS: No intracranial hemorrhage, mass, edema or shift of mid-line structures. No acute infarcti on changes seen. No cortical edema or sulcal effacement. Ventricles are normal. Mastoid air cells and visualized portions of the paranasal sinuses are clear. No acute bony findings. IMPRESSION: Negative non-contrast CT head examination. No significant change the comparison study.
[2021-11-03] MEDS ORDERED: LORazepam 2 MG/ML VIAL ONE (17:16)
--- NOTE | 2021-11-03 18:10 | RAD REPORT ---
EXAM DESCRIPTION: MRI - Brain W/Wo Cont - 11/03/2021 5:59 pm CLINICAL HISTORY: Mental status change, persistent or worsening COMPARISON: Brain W/Wo Cont dated 05/02/2021; Head Brain Wo Cont dated 11/03/2021 TECHNIQUE: Sagittal and axial T1-weighted images were obtained. Axial PD/heavily T2-weighted and T2- FLAIR images were obtained along with axial DWI/ADC mapping sequences. Coronal heavily T2 weighted s equence obtained. Axial and coronal post-contrast T1-weighted images were also obtained. A 20 ml Mul tihance contrast following utilized. FINDINGS: No intracranial hemorrhage, mass or acute infarction. There is no edema or shift of midli ne structures. No extra-axial fluid collections. Salazar-matter/white matter junction is preserved. Sig nal voids are seen as a normal finding in the major intracranial vessels. No atrophy or chronic ische urmila changes. Rare foci of nonenhancing hyperintense T2 signal seen in the cerebral white matter. Find ings are not significantly different from 2021 MRI. These foci are nonspecific and not acutely clinic ally significant. Post-contrast images show normal enhancement. No dural thickening. Mastoid air cells and paranasal sinuses are clear. No globe or orbital content abnormality. No sella or supra sella abnormality. IMPRESSION: Negative contrast enhanced MRI of the Brain for acute finding. No significant change from comparison.
--- NOTE | 2021-11-03 19:09 | ER ---
Nurse's Notes [facility] Name: Naz Boyle Age: 41 yrs Sex: Female : 1980 Arrival Date: 11/03/2021 Time: 10:42 Bed 12 Private MD: Diagnosis: Sprain of unspecified ligament of left ankle, initial encounter;Sprain of unspecified site of left knee;Other sprain of left shoulder joint;Hypothyroidism, unspecified;Conversion disorder with seizures or convulsions Presentation: 11/03 11:01 Chief complaint: Patient states: "I was standing on left leg and my wheelchair rolled jd3 out from behind me. my hold left leg twisted trying to catch myself. So I ended up hurting my left ankle, knee, and left shoulder. I stand normally using my left side because I have had previous strokes affecting my right side.". Coronavirus screen: At this time, the client does not indicate any symptoms associated with coronavirus-19. Ebola Screen: No symptoms or risks identified at this time. Initial Sepsis Screen: Does the patient meet any 2 criteria? No. Patient's initial sepsis screen is negative. Does the patient have a suspected source of infection? No. Patient's initial sepsis screen is negative. Risk Assessment: Do you want to hurt yourself or someone else? Patient reports no desire to harm self or others. Onset of symptoms was November 03, 2021. 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 - Social history:: Smoking status: Patient reports the use of cigarette tobacco products, smokes one-half pack cigarettes per day. Screenin:03 Abuse screen: Denies threats or abuse. Denies injuries from another. Nutritional iw screening: No deficits noted. Tuberculosis screening: No symptoms or risk factors identified. Fall Risk None identified. Assessment: 12:02 General: Appears in no apparent distress. Behavior is calm, cooperative. Pain: iw Complains of pain in left knee. Neuro: Level of Consciousness is awake, alert, obeys commands, Oriented to person, place, time, situation. Cardiovascular: Patient's skin is warm and dry. 14:55 Reassessment: states that as the ER physician was assessing her she became iw "unresponsive", pt nonverbal, not following commands , eyes open, VSS. 15:06 Reassessment: pt able to nod head yes when asked if she feels like she is post-ictal. iw 15:12 Reassessment: pt still not verbal, pt with spontaneous eye opening, when asked if pt iw still has a headache pt nodded her head yes. 17:03 Reassessment: Patient appears in no apparent distress at this time. Patient and/or jd3 family updated on plan of care and expected duration. Pain level reassessed. Patient is alert, oriented x 3, equal unlabored respirations, skin warm/dry/pink. 17:13 Reassessment: pt reported with stuttering speech having claustrophobia. provider jd3 notified and pt medicated. see MAR. 18:14 Reassessment: No changes from previously documented assessment. Patient and/or family jd3 updated on plan of care and expected duration. Pain level reassessed. pt returned from MRI. pt is A\\T\\O X 4, but hard to wake up. woken up with louder verbal stimuli. continues to speak with a stutter. Vital Signs: 11:05 BP 129 / 94; Pulse 81; Resp 16 S; Temp 98.1(TE); Pulse Ox 100% on R/A; Weight 113.4 kg jd3 (R); Height 5 ft. 11 in. (180.34 cm) (R); Pain 10/10; 15:19 BP 154 / 85; Pulse 66; Resp 16; Pulse Ox 99% on R/A; iw 17:03 BP 138 / 94; Pulse 63; Resp 16 S; Pulse Ox 99% on R/A; jd3 18:16 BP 129 / 81; Pulse 64; Resp 16 S; Pulse Ox 99% on R/A; jd3 11:05 Body Mass Index 34.87 (113.40 kg, 180.34 cm) jd3 ED Course: 10:42 Patient arrived in ED. as 11:04 Triage completed. jd3 11:05 Darren Vasquez MD is Attending Physician. kdr 11:05 Arm band placed on. jd3 11:18 Carmina Abbasi, RN is Primary Nurse. iw 12:03 No provider procedures requiring assistance completed. Patient did not have IV access iw during this emergency room visit. 12:40 Ankle Left 3 View XRAY In Process Unspecified. EDMS 12:40 Knee Left 3 View XRAY In Process Unspecified. EDMS 12:40 Shoulder Left (2 View) XRAY In Process Unspecified. EDMS 15:33 Inserted saline lock: 20 gauge in left antecubital area, using aseptic technique. Blood jd3 collected. 15:43 CT Head Brain wo Cont In Process Unspecified. EDMS 17:04 Patient has correct armband on for positive identification. Bed in low position. Call jd3 light in reach. Side rails up X2. Adult w/ patient. Client placed on continuous cardiac and pulse oximetry monitoring. NIBP monitoring applied. parking attendant on. Pulse ox on. NIBP on. 17:55 MRI - Brain W/Wo Cont In Process Unspecified. EDMS 19:18 Primary Nurse role handed off by Carmina Abbasi, RN eb 19:27 Carmina Abbasi, LIZZY is Primary Nurse. iw Administered Medications: 11:49 Drug: [place] (HYDROcodone-acetaminophen) 10 mg-325 mg 1 tabs Route: PO; iw 12:40 Follow up: Response: No adverse reaction; RASS: Alert and Calm (0) jd3 17:15 Drug: Ativan (LORazepam) 0.5 mg Route: IVP; Site: left antecubital; jd3 18:15 Follow up: Response: No adverse reaction jd3 19:12 Not Given (Physician Discretion): levothyroxine 200 mcg IV at calculated rate once iw 19:16 Drug: Keppra (levETIRAcetam) 1000 mg Route: PO; iw 19:50 Follow up: Response: No adverse reaction iw 19:16 Drug: Keppra (levETIRAcetam) 500 mg Route: PO; iw 19:50 Follow up: Response: No adverse reaction iw 19:16 Drug: [place] (HYDROcodone-acetaminophen) 10 mg-325 mg 1 tabs Route: PO; iw 20:00 Follow up: Response: No adverse reaction iw 19:27 Drug: levothyroxine 200 mcg Route: PO; iw 20:00 Follow up: Response: No adverse reaction iw Medication: 17:17 VIS not applicable for this client. jd3 Outcome: 19:09 Discharge ordered by . kdr 19:35 Discharged to home via wheelchair, with family. iw 19:35 Condition: good 19:35 Discharge instructions given to patient, family, Instructed on discharge instructions, follow up and referral plans. medication usage, Demonstrated understanding of instructions, follow-up care, medications, Prescriptions given X 6 19:35 Patient left the ED. iw Signatures: Dispatcher [employer] EDMS Darren Vasquez MD MD kdr Martinez, Amelia as Williams, Irene RN RN Oscar Garcia RN RN jJessica Guerra Corrections: (The following items were deleted from the chart) 11:05 11:04 Allergies: No Known Allergies; jd3 jd3
--- NOTE | 2021-11-03 19:10 | EDPHYS ---
Physician Documentation [facility] Name: Naz Boyle Age: 41 yrs Sex: Female : 1980 Arrival Date: 11/03/2021 Time: 10:42 Bed 12 Private MD: ED Physician Darren Vasquez HPI: 11/03 17:28 This 41 yrs old Female presents to ER via Wheelchair with complaints of Fall Injury, kdr Knee Pain. 17:28 Details of fall: The patient fell from an upright position, while standing. Onset: The kdr symptoms/episode began/occurred suddenly, just prior to arrival. Associated injuries: The patient sustained Left shoulder, left knee and ankle. Severity of symptoms: At their worst the symptoms were mild, moderate, just prior to arrival, in the emergency department the symptoms are unchanged. The patient has not experienced similar symptoms in the past. The patient has not recently seen a physician. Patient states she was standing next to her wheelchair making some scrambled eggs when she lost her balance. She was attempting to fall into her wheelchair when she became tangled up in the wheelchair landing with her arm caught in the wheelchair and her leg underneath her. Her right side is not helpful secondary to a prior stroke. She presented to the ED complaining of left shoulder, left knee and ankle pain. There was no obvious swelling or deformity. There is no laceration or other injury. Patient did not appear acutely ill or injured and did not require immediate intervention upon arrival.. 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 - Social history:: Smoking status: Patient reports the use of cigarette tobacco products, smokes one-half pack cigarettes per day. ROS: 17:28 Constitutional: Negative for fever, chills, and weight loss, Eyes: Negative for injury, kdr pain, redness, and discharge, Neck: Negative for injury, pain, and swelling, Cardiovascular: Negative for chest pain, palpitations, and edema, Respiratory: Negative for shortness of breath, cough, wheezing, and pleuritic chest pain, Abdomen/GI: Negative for abdominal pain, nausea, vomiting, diarrhea, and constipation, Back: Negative for injury and pain. 17:28 MS/extremity: Positive for injury or acute deformity, decreased range of motion, pain, of the chest, posterior aspect of left shoulder, left knee and anterior aspect of left ankle. Exam: 17:28 Constitutional: This is a well developed, well nourished patient who is awake, alert, kdr and in no acute distress. Head/Face: Normocephalic, atraumatic. Eyes: Pupils equal round and reactive to light, extra-ocular motions intact. Lids and lashes normal. Conjunctiva and sclera are non-icteric and not injected. Cornea within normal limits. Periorbital areas with no swelling, redness, or edema. Neck: Trachea midline, no thyromegaly or masses palpated, and no cervical lymphadenopathy. Supple, full range of motion without nuchal rigidity, or vertebral point tenderness. No Meningismus. Chest/axilla: Normal chest wall appearance and motion. Nontender with no deformity. No lesions are appreciated. Cardiovascular: Regular rate and rhythm with a normal S1 and S2. No gallops, murmurs, or rubs. Normal PMI, no JVD. No pulse deficits. Respiratory: Lungs have equal breath sounds bilaterally, clear to auscultation and percussion. No rales, rhonchi or wheezes noted. No increased work of breathing, no retractions or nasal flaring. Abdomen/GI: Soft, non-tender, with normal bowel sounds. No distension or tympany. No guarding or rebound. No evidence of tenderness throughout. Back: No spinal tenderness. No costovertebral tenderness. Full range of motion. Skin: Warm, dry with normal turgor. Normal color with no rashes, no lesions, and no evidence of cellulitis. Neuro: Awake and alert, GCS 15, oriented to person, place, time, and situation. Cranial nerves II-XII grossly intact. Motor strength 5/5 in all extremities. Sensory grossly intact. Cerebellar exam normal. Normal gait. Psych: Awake, alert, with orientation to person, place and time. Behavior, mood, and affect are within normal limits. Vital Signs: 11:05 BP 129 / 94; Pulse 81; Resp 16 S; Temp 98.1(TE); Pulse Ox 100% on R/A; Weight 113.4 kg jd3 (R); Height 5 ft. 11 in. (180.34 cm) (R); Pain 10/10; 15:19 BP 154 / 85; Pulse 66; Resp 16; Pulse Ox 99% on R/A; iw 17:03 BP 138 / 94; Pulse 63; Resp 16 S; Pulse Ox 99% on R/A; jd3 18:16 BP 129 / 81; Pulse 64; Resp 16 S; Pulse Ox 99% on R/A; jd3 11:05 Body Mass Index 34.87 (113.40 kg, 180.34 cm) jd3 MDM: 17:28 Data reviewed: vital signs, nurses notes. ED course: Patient's states that due kdr to insurance issues, they have not been able to take their medications for some weeks if not months. Part of the sequela that results is that the patient periodically has seizures either silent or mini seizures or grand mal seizures. states that this is an intermittent ongoing issue. It happens on a daily basis. He does not seek treatment each time she has 1 of these episodes. In the course of her stay in the ED, and near the time of initial discharge, the patient became poorly responsive. The describes this as one of the episodes that she commonly has at home. He normally does not seek treatment during or as a result of these episodes. They happen frequently. As time progressed, the patient seemed to not return to her normal baseline as quickly as had been expected. Patient was subsequently scanned and MRI performed. Currently awaiting results from these tests. Patient has regained some alertness during this time.. 19:09 Patient medically screened. kdr 11/03 15:20 Order name: CBC with Diff; Complete Time: 16:36 kdr 11/03 15:20 Order name: Chem 7; Complete Time: 16:36 kdr 11/03 11:40 Order name: Ankle Left 3 View XRAY; Complete Time: 14:23 kdr 11/03 11:40 Order name: Knee Left 3 View XRAY; Complete Time: 14:23 kdr 11/03 11:40 Order name: Shoulder Left (2 View) XRAY; Complete Time: 14:23 kdr 11/03 15:20 Order name: CT Head Brain wo Cont; Complete Time: 16:36 kdr 11/03 17:01 Order name: MRI - Brain W/Wo Cont; Complete Time: 18:52 kdr Administered Medications: 11:49 Drug: [place] (HYDROcodone-acetaminophen) 10 mg-325 mg 1 tabs Route: PO; iw 12:40 Follow up: Response: No adverse reaction; RASS: Alert and Calm (0) jd3 17:15 Drug: Ativan (LORazepam) 0.5 mg Route: IVP; Site: left antecubital; jd3 18:15 Follow up: Response: No adverse reaction jd3 19:12 Not Given (Physician Discretion): levothyroxine 200 mcg IV at calculated rate once iw 19:16 Drug: Keppra (levETIRAcetam) 1000 mg Route: PO; iw 19:50 Follow up: Response: No adverse reaction iw 19:16 Drug: Keppra (levETIRAcetam) 500 mg Route: PO; iw 19:50 Follow up: Response: No adverse reaction iw 19:16 Drug: [place] (HYDROcodone-acetaminophen) 10 mg-325 mg 1 tabs Route: PO; iw 20:00 Follow up: Response: No adverse reaction iw 19:27 Drug: levothyroxine 200 mcg Route: PO; iw 20:00 Follow up: Response: No adverse reaction iw Disposition Summary: 11/03/21 19:09 Discharge Ordered Location: Home kdr Problem: an acute exacerbation kdr Symptoms: have improved kdr Condition: Stable kdr Diagnosis - Sprain of unspecified ligament of left ankle, initial encounter kdr - Sprain of unspecified site of left knee kdr - Other sprain of left shoulder joint kdr - Hypothyroidism, unspecified kdr - Conversion disorder with seizures or convulsions kdr Followup: kdr - With: Private Physician - When: 2 - 3 days - Reason: If symptoms return, Further diagnostic work-up, Recheck today's complaints, Continuance of care, Re-evaluation by your physician Discharge Instructions: - Discharge Summary Sheet kdr - Confusion kdr - Musculoskeletal Pain kdr - Hypothyroidism kdr - Systemic Lupus Erythematosus, Adult kdr - Seizure, Adult, [id number] kdr Forms: - Medication Reconciliation Form kdr - Thank You Letter kdr - Antibiotic Education kdr - Prescription Opioid Use kdr Prescriptions: - hydroxychloroquine 200 mg Oral tablet - take 1 tablet by ORAL route once daily; 15 tablet; Refills: 0, Product kdr Selection Permitted - midodrine 2.5 mg Oral tablet - take 1 tablet by ORAL route 3 times per day; 45 tablet; Refills: 0, Product kdr Selection Permitted - Neurontin 300 mg Oral Capsule - take 1 capsule by ORAL route every 12 hours; 30 capsule; Refills: 0, Product kdr Selection Permitted - Plavix 75 mg Oral Tablet - take 1 tablet by ORAL route once daily; 20 tablet; Refills: 0, Product kdr Selection Permitted - Levothyroxine 150 mcg Oral Tablet - take 1 tablet by ORAL route once daily take 30 minutes before breakfast; 20 kdr tablet; Refills: 0, Product Selection Permitted - Keppra 750 mg Oral Tablet - take 2 tablet by ORAL route every 12 hours; 60 tablet; Refills: 0, Product kdr Selection Permitted Signatures: Dispatcher [employer] Darren Martin MD MD kdr Williams, Irene, RN RN iw Oscar Maravilla RN RN jd3 Corrections: (The following items were deleted from the chart) 11:05 11:04 Allergies: No Known Allergies; jd3 jd3
[2021-11-03] MEDS ORDERED: levETIRAcetam 500 MG TAB ONE (19:17)
[2021-11-03] MEDS ORDERED: LEVOTHYROXINE SOD 0.1 MG TAB ONE (19:25)
[2021-11-03 20:04] VITALS: TEMP 98.1
[2021-11-03 20:06] VITALS: O2SAT 99
[2021-11-03 20:19] VITALS: BP 129/81
== END 2021-11-03 19:35 | disposition home or self-care (01) ==
LOC: ER 10:41
DX: S83.92XA Sprain of unspecified site of left knee, initial encounter (principal); S93.402A Sprain of unspecified ligament of left ankle, initial encounter; S43.492A Other sprain of left shoulder joint, initial encounter; F44.5 Conversion disorder with seizures or convulsions; E03.9 Hypothyroidism, unspecified; F17.210 Nicotine dependence, cigarettes, uncomplicated; Z86.73 Personal history of transient ischemic attack (TIA), and cerebral infarction without residual deficits; Z88.8 Allergy status to other drugs, medicaments and biological substances
CPT/HCPCS: 36415; 70450; 70553; 80048; 85025; 96374; 99284; A9577

== ENCOUNTER 2021-11-07 16:39 | Inpatient (IN) | payer SELFPAY ==
--- OUTSIDE RECORDS SUMMARY | 2021-11-07 16:43 | XMS REPORT | Continuity of Care Document ---
:[address] [facility] t Address [address] [place] [address] Care Team Providers Name Role Phone LIZET Attending Clinician Unavailable Akiko Raymond Attending Clinician Payers Payer Name Policy Type Policy Number Effective Date Expiration Date S ource Problems Condition Condition Condition Status Onset Resolution Last Treating Co mments Source Name Details Category Date Date Treatment Clinician Date No known No known Disease Unive rs active active ity of problems problems [facility] Allergies, Adverse Reactions, Alerts Allergy Allergy Status Severity Reaction(s) Onset Inactive Treating Comm ents Source Name Type Date Date Clinician NO KNOWN Drug Active Univers ALLERGIE Class ity of S [facility] Social History Social Habit Start Date Stop Date Quantity Comments Source Sex Assigned At Uni versity [facility] Exposure to SARS-CoV-2 Not sure [facility] [place] (event) [facility] Smoking Status Start Date Stop Date Source Unknown if ever smoked Universit y [facility] Medications Ordered Filled Start Stop Current Ordering Indication Dosage Frequency Signature Comments Components Source Medication Medication Date Date Medication? Clinician (SIG) Name Name amoxicillin 2020- No 1{tbl} 1 tablet, Univers -clavulanat 05-31 Oral, ONCE i ty of e 05:00: 04:02 NOW, 1 [place] (AUGMENTIN) 00 :00 dose, Tue Med ical 875-125 mg 05/30/20 at Bran ch per tablet 2300, 1 tablet Routine
Reason for Anti-Infec tive: Documented Infection< br>Documen justino Infection Site: Respirator y
Durat ion of Therapy: Other (see Comments) ketorolac No [facility] Slow IV ity of injection 03:30: 02:26 Push, [place] 15 mg 00 :00 ONCE, 1 Medical dose, [facility] 05/30/20 at 2130, EVANS
Fa culty member approving Restricted medication : ZOE NAVAS hydrOXYzine 2020- No 25mg 25 mg, Uni vers (ATARAX) 05-31 Oral, ity of tablet 25 03:30: 02:26 [place]CE, [place] mg 00 :[place] dose, [facility] 05/30/20 at Branch 2130, EVANS famotidine 2020- No 20mg 20 mg, Univ ers (PEPCID 05-31 Slow IV ity of (PF)) 03:30: 02:26 Push, [place] injection 00 :00 ONCE, 1 Medical 20 mg dose, [facility] 05/30/20 at 2130, EVANS iohexol 2020- No 100mL 100 mL, [place] [facility] (OMNIPAQUE 05-31 Intravenou it y of 350 01:45: 01:37 s, ONCE, 1 [place] BULK-150 00 :00 dose, [facility] l mL) 05/30/20 at Branch injection 1944, 100 mL Routine butalbital- 2020- No 1{tbl} 1 tablet, Univers acetaminoph 05-31 Oral, ONCE i ty of en-caff 01:45: 00:52 NOW, 1 [place] (ESGIC) 00 :00 dose, [facility] 50-325-40 05/30/20 at [facility] h mg tablet 1 1944, tablet Routine diphenhydrA No 50mg 50 mg, Uni vers MINE 05-31 Slow IV ity of (BENADRYL) 00:15: 00:52 Push, [place] injection 00 :00 ONCE, 1 Medical 50 mg dose, [facility] 05/30/20 at 1815, STAT methylPREDN 2020- No 40mg 40 mg, IV Univers ISolone sod 05-31 Piggyback, i ty of succ 00:15: 00:52 ONCE, 1 [place] (SOLU-MEDRO 00 :00 dose, Tue Med ical L (PF)) 05/30/20 at Branch injection 1815, STAT 40 mg NaCl 0.9% 2020- No 1000mL at 999 Uni vers (NS) bolus 05-30 mL/hr, ity of infusion 23:15: 02:15 1,000 mL, [place] as 1,000 mL 00 :00 IV Medical Infusion, Branch ONCE, 1 dose, 05/30/20 at 1715, EVANS albuterol Yes [id number] 2{puff} Inhale 2 Univers 90 1-05 Puffs ity of mcg/actuati 00:00: every 4 [place] as on inhaler 00 (four) Medical hours as Branch needed for Wheezing or Shortness of Breath. hydrOXYzine Yes [id number] 25mg Take 1 Univers 25 mg 1-05 tablet by ity of tablet 00:00: mouth [place] 00 every 6 Medical (six) Branch hours as needed for Itching. amoxicillin 2020- No [id number] 1{tbl} Take 1 Univers -clavulanat 05-30 tablet [...] 03:01:00 105 mm[Hg] Univer sity of pressure [facility] Diastolic blood 2020-05-31 03:01:00 71 mm[Hg] Unive rsity of pressure [place] [facility] [place] Heart rate 2020-05-31 03:01:00 73 /min [facility] [place] [facility] [place] Body temperature 2020-05-31 03:01:00 36.56 Yanet Univ ersity of [facility] Respiratory rate 2020-05-31 03:01:00 18 /min Univ ersity of [facility] Oxygen saturation in 2020-05-31 03:01:00 98 /min University of Arterial blood by [facility] Pulse oximetry Branch Body height 2020-05-30 21:27:00 180.3 cm [facility] [place] [facility] [place] Body weight 2020-05-30 21:27:00 92.987 kg Universi ty of [facility] BMI 2020-05-30 21:27:00 28.59 kg/m2 Universi ty [facility] Systolic blood 2020-05-31 03:01:00 105 mm[Hg] Univer sity of pressure [facility] Diastolic blood 2020-05-31 03:01:00 71 mm[Hg] Unive rsity of pressure [facility] Heart rate 2020-05-31 03:01:00 73 /min [facility] [place] [facility] [place] Body temperature 2020-05-31 03:01:00 36.56 [facility]et [facility] Respiratory rate 2020-05-31 03:01:00 18 /min [facility] [place] [facility] [place] Oxygen saturation in 2020-05-31 03:01:00 98 /min University of Arterial blood by [facility] Pulse oximetry Branch Body height 2020-05-30 21:27:00 180.3 cm [facility] [place] [facility] [place] Body weight 2020-05-30 21:27:00 92.987 kg Universi ty [facility] BMI 2020-05-30 21:27:00 28.59 kg/m2 Universi ty [facility] Procedures Procedure Date / Time Performed Performing Clinician Sourc e URINALYSIS 2020-05-31 03:43:00 Zoe Navas [facility] CT CHEST PULMONARY 2020-05-31 01:43:20 Zoe Navas [facility] ANGIOGRAM Medical Branch POCT TEST 2020-05-31 01:29:00 Zoe Navas [facility] Branch COVID-19 (ID NOW RAPID 2020-05-31 00:53:00 Zoe Navas [facility] TESTING) Medical Branch XR CHEST 1 VW 2020-05-31 00:09:22 Zoe Navas [facility] TROPONIN I 2020-05-31 00:03:00 Zoe Navas [facility] COMP. METABOLIC PANEL 2020-05-31 00:03:00 Zoe Navas [facility] ([id number]) Medical Branch CBC WITH DIFF 2020-05-31 00:03:00 Zoe Navas [facility] D-DIMER 2020-05-31 00:03:00 Zoe Navas [facility] NOTICE OF PRIVACY 2020-05-30 21:02:17 Doctor Unassigned, No Univ [facility] PRACTICES Name Medical Branch Encounters Start End Encounter Admission Attending Care Care Encounter Source Date/Time Date/Time Type Type Clinicians Facility Department ID 2020-09-07 2020-09-07 Outpatient [facility] [id number] [place] 00:00:00 00:00:[address] 2020-09-07 2020-09-07 Outpatient [facility] [id number] [place] 00:00:00 00:00:[address] 2020-09-07 2020-09-07 Outpatient [facility] [id number] [place] 00:00:00 00:00:[address] 2020-09-07 2020-09-07 Outpatient [facility] [id number] [place] 00:00:00 00:00:[address] 2020-05-30 2020-05-30 [id number] 16:01:00 23:26:00 Zoe Ayala [id number] [place] [id number] [place] [id number] 2020-05-30 2020-05-30 Emergency [facility] [id number] [facility] [place] [facility] 16:01:00 23:26:00 Zoe Ayala [id number] i [facility] [id number] [facility] [id number] [facility] 084 Branch 2020-05-30 2020-05-30 Emergency X [facility] ERT [id number] Univers 15:03:00 15:03:00 ity [facility] Results Test Description Test Time Test Comments Results Result Comments Source URINALYSIS 2020-05-31 04:33:00 Test Item Value Reference Range Interpretation Comme nts APPEARANCE (test code = Clear Clear 4993141768) COLOR (test code = 3319658134) Yellow Yellow PH (test code = 7356509228) 4.8-8.0 SP GRAVITY (test code = 1.003-1.030 H 1590613619) GLU U QUAL (test code = Normal Normal 0157829199) BLOOD (test code = 3688320155) Negative Negative KETONES (test code = 9729619214) Negative Negative PROTEIN (test code = 2887-8) Negative Negative UROBILIN (test code = 9216583847) Normal Normal BILIRUBIN (test code = Negative Negative 2356350432) NITRITE (test code = 8691030786) Negative Negative LEUK VY (test code = Negative Negative 2332715387) RBC/HPF (test code = 3621477335) See_Comment [Automated message] The system which ge nerated this result transmit justino reference range: 0 - 3 HP F. The reference range was not used to interpret th is result as normal/abnormal . WBC/HPF (test code = 2666381797) <1 See_Comment [Automated message] The system which ge nerated this result transmit justino reference range: 0 - 5 HP F. The reference range was not used to interpret th is result as normal/abnormal . BACTERIA (test code = 8938132978) Few Negative A SQ EPITH (test code = 4184476380) <1 HPF Lab Interpretation (test code = Abnormal 89005-8) [facility] [id number] 02:56:04Impression: 1. Patchy ground glass opacities, predominating [...] in appearance.4. Cholecyste ctomy.RL: 460[facility] 1 [id number] 02:20:50Impression: No acute abnormalities evident. RL: 460 [...] evident.IMPRESSIONImpression:No acute abnormalities evident.RL: 460End of Report [facility] [id number] 01:29:00 Test Item Value Reference Range Interpretation Comments POCT PREG (test code = Hysterectomy HX of Hysterectomy 1605) Lab Interpretation Normal (test code = 32212-7) [facility] (ID NOW RAPID TESTING)2020-05-31 01:23:00 Test Item Value Reference Range Interpretation Comments SARS-CoV-2 Rapid ID NOW Not Detected Not Detected (test code = 11860-9) JASMEET (test code = JASMEET) ID NOW COVID-19 Assay is an isothermal nucleic acid amplification test intended for the qualitative detection of nucleic acid from SARS-CoV-2 viral RNA in nasopharyngeal (JUNIOR PARALEGAL) specimens. It is used under Emergency Use [...] indicated. Lab Interpretation Normal (test code = 72132-1) [facility] [id number] 00:41:00 Test Item Value Reference Range Interpretation Comments TROPONIN I (test <0.012 See_Comment [Automated code = 1798389819) message] The system which generated this result [...] ? Lab Interpretation Normal (test code = 75939-1) [facility] MET[facility]OLIC PANEL (09268)2020-05-31 00:32:00 Test Item Value Reference Range Interpretation Comments NA (test code = 138 mmol/L 135-145 6417651627) K (test code = 4.0 mmol/L 3.5-5 0439473112) CL (test code = 101 mmol/L 98-108 8716463763) CO2 TOTAL (test code = 27 mmol/L 23-31 4297982542) AGAP (test code = 2-16 7898636451) BUN (test code = 5 mg/dL 7-23 L 6484620081) GLUCOSE (test code = 136 mg/dL 70-110 H 4794536701) CREATININE (test code = 0.56 mg/dL 0.5-1.04 4934315012) TOTAL BILI (test code = 0.4 mg/dL 0.1-1.8 2664211275) CALCIUM (test code = 9.0 mg/dL 8.6-10.6 7613298785) T PROTEIN (test code = 8.3 g/dL 6.3-8.2 H 1799796822) ALBUMIN (test code = 4.6 g/dL 3.5-5 7545104194) ALK PHOS (test code = 93 U/L 34-122 7106383642) ALTv (test code = 21 U/L 5-35 1742-6) AST(SGOT) (test code = 25 U/L 13-40 0466692303) eGFR Calculation mL/min/1.73m2 (Non-) (test code = 4350586972) eGFR Calculation mL/min/1.73m2 () (test code = 5832135006) JASMEET (test code = JASMEET) Association of [...] tests). Lab Interpretation Abnormal (test code = 81380-5) [facility]-[id number] 00:30:00 Test Item Value Reference Interpretation Comments Range D-DIMER (test code = See_Comment H [Autom ated 0838276940) message] The system which generated this result [...] diagnosis. Lab Interpretation Abnormal (test code = 86504-3) [facility] [id number] 00:13:00 Test Item Value Reference Range Interpretation [...] RDW-SD (test code = 40.5 fL 39-49.9 12984-7) RDW-CV (test code = 12.2 % 12-15.5 788-0) PLT (test code = See_Comment [Automated 777-3) message] The system which generated this result transmit justino reference range : 166 - 358 10*3/ ?L. The reference range was not u sed to interpret th is result as normal/abnormal . MPV (test code = 9.4 fL 9.5-12.9 L 34905-1) NRBC/100 WBC (test See_Comment [Automat ed code = 5268742494) message] The system which generated this result transmit justino reference range : 0.0 - 10.0 /100 WBCs. The reference range was not used to interpret this result as normal/abnormal . NRBC x10^3 (test code <0.01 See_Comment [Auto mated = 6674409592) message] The system which generated this result transmit justino reference range : 10*3/?L. The reference range was not used to interpret this result as normal/abnormal . GRAN MAT (NEUT) % 93.5 % (test code = 770-8) IMM GRAN % (test code 0.80 % = 8049768274) LYMPH % (test code = 4.8 % 736-9) MONO % (test code = 0.6 % 5905-5) EOS % (test code = 0.1 % 713-8) BASO % (test code = 0.2 % 706-2) GRAN MAT x10^3(ANC) 13.73 10*3/uL 1.88-7.09 H (test code = 0195874544) IMM GRAN x10^3 (test 0.12 10*3/uL 0-0.06 H code = 2611500752) LYMPH x10^3 (test code 0.71 10*3/uL 1.32-3.29 L = 731-0) MONO x10^3 (test code 0.09 10*3/uL 0.33-0.92 L = 742-7) EOS x10^3 (test code = <0.03 0.03-0.39 L 711-2) BASO x10^3 (test code 0.03 10*3/uL 0.01-0.07 = 704-7) Lab Interpretation Abnormal (test code = 52906-1) [facility]
[2021-11-07 17:23] LABS: Absolute Lymphocytes (CBC) 3.6 K/uL (0.7-4.9); Hematocrit 39.5 % (36.0-45.0); MPV 7.5 fL (7.6-11.3); RBC Red Blood Cell Count 4.49 M/uL (3.86-4.86)
[2021-11-07 17:24] LABS: Protime INR 0.97
[2021-11-07] MEDS ORDERED: levETIRAcetam 1,000 MG in NA CHLORIDE 0.9% 100 ML IV ONE (17:30)
[2021-11-07 17:32] LABS: ALT/SGPT 18 U/L (12-78); AST/SGOT 19 U/L (15-37); Alkaline Phosphatase 75 U/L (45-117); BUN Blood Urea Nitrogen 5 mg/dL (7-18); Bicarbonate 27 mmol/L (21-32); Bilirubin Total 0.3 mg/dL (0.2-1.0); Glomerular Filtration Rate 57 ml/min (=/>90); Glucose Level 90 mg/dL (74-106); Magnesium 2.6 mg/dL (1.8-2.4); NT PRO-BNP 29 pg/mL (<125); Potassium 3.5 mmol/L (3.5-5.1); Protein, Total 8.4 g/dL (6.4-8.2); Sodium Level 137 mmol/L (136-145); Troponin High Sensitivity 3.4 pg/mL (<58.9)
[2021-11-07 17:35] LABS: Bilirubin Direct < 0.1 mg/dL (0-0.2)
--- NOTE | 2021-11-07 17:51 | RAD REPORT ---
EXAM DESCRIPTION: RAD - Chest Single View - 11/07/2021 5:28 pm CLINICAL HISTORY: Seizure COMPARISON: Chest Single View dated 05/01/2021; Chest Single View dated 06/02/2020; Chest Single View d ated 05/27/2019; CHEST SINGLE VIEW dated 09/27/2012 FINDINGS: Lines: None. Lungs: Diffuse prominence of the pulmonary vasculature. Pleural: No significant pleural effusions or pneumothorax. Cardiac: The heart size is within normal limits. Bones: No acute fractures. Other: IMPRESSION: Widespread prominence of the pulmonary interstitium could reflect mild edema.
--- NOTE | 2021-11-07 18:21 | RAD REPORT ---
EXAM DESCRIPTION: CT - Head Brain Wo Cont - 11/07/2021 6:08 pm CLINICAL HISTORY: Seizure, fall COMPARISON: <Comparisons> TECHNIQUE: All CT scans are performed using dose optimization technique as appropriate and may inclu de automated exposure control or mA/KV adjustment according to patient size. FINDINGS: No intracranial hemorrhage, hydrocephalus or extra-axial fluid collection.No areas of brai n edema or evidence of midline shift. The paranasal sinuses and mastoids are clear. The calvarium is intact. IMPRESSION: No acute intracranial abnormality.
--- NOTE | 2021-11-07 19:00 | EDPHYS ---
Physician Documentation [facility] Name: Naz Boyle Age: 41 yrs Sex: Female : 1980 Arrival Date: 11/07/2021 Time: 16:41 Bed 4 Private MD: ED Physician Darren Vasquez HPI: 11/07 17:09 This 41 yrs old Female presents to ER via EMS with complaints of Unresponsive. pm1 17:09 The patient's problem is reported as Decreased responsiveness. Onset: The pm1 symptoms/episode began/occurred possibly at 1400 today. Duration: This was a single incident. Context: occurred at home, Possible contributing factors include: Noncompliance with all her medications including antiseizure medicines. Seizure Hx: Last seizure: The patient's last seizure was approximately 4 day(s) ago, Seizure medications: Keppra and Vimpat, patient noncompliant with these medications. Associated injury: The patient did not suffer any apparent associated injury. Current symptoms: Decreased responsiveness. Patient only responsive to painful stimuli per EMS. Associated signs and symptoms: Pertinent negatives:. Severity of symptoms: in the emergency department the symptoms have improved mildly. 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: 16:52 LMP N/A - Hysterectomy jd3 Historical: - Allergies: 16:52 Prednisone; jd3 - Home Meds: 16:52 Keppra 1500 mg Oral 2 times per day [Active]; jd3 17:58 aspirin 81 mg Oral TbEC 1 tab once daily [Active]; levothyroxine 200 mcg oral cap jl7 [Active]; Crestor 10 mg Oral tab 1 tab once daily [Active]; midodrine 2.5 mg Oral tab 1 tab 3 times per day [Active]; Vimpat 50 mg Oral tab 1 tab 2 times per day [Active]; gabapentin 100 mg Oral tab 3 caps bid [Active]; Plavix 75 mg Oral tab 1 tab once daily [Active]; - PMHx: 16:52 Lupus; Rheumatoid Arthritis; Seizures; RLS; Hypothyroidism; PERIPHERAL NEUROPATHY; jd3 Migraine; insomnia; hypotension; Hypercholesterolemia; CVA; BRADYCARDIA; SVT; - PSHx: 16:52 Appendectomy; Cholecystectomy; carpal tunnel luis miguel hands; Total abdominal hysterectomy; jd3 - Immunization history:: Adult Immunizations unknown. - Social history:: Smoking status: unknown. ROS: 17:09 Constitutional: Negative for fever, chills, and weight loss, Cardiovascular: Negative pm1 for chest pain, palpitations, and edema, Respiratory: Negative for shortness of breath, cough, wheezing, and pleuritic chest pain, MS/Extremity: Negative for injury and deformity, Skin: Negative for injury, rash, and discoloration. 17:09 Eyes: Negative for injury, pain, redness, and discharge, ENT: Negative for injury, pain, and discharge. 17:09 Neuro: Positive for altered mental status. 17:09 Unable to obtain ROS due to postictal. Information obtained from . Exam: 17:09 Constitutional: The patient appears in no acute distress, awake, non-toxic, well pm1 developed, well hydrated, well groomed, well nourished. 17:09 Head/face: Exam is negative for acute changes. 17:09 Eyes: Exam is negative for acute changes. 17:09 Cardiovascular: Exam negative for acute changes, Rate: normal, Rhythm: regular, Pulses: no pulse deficits are appreciated. 17:09 Respiratory: Exam negative for acute changes, respiratory distress, shortness of breath. 17:09 Abdomen/GI: Inspection: obese Palpation: abdomen is soft and non-tender, in all quadrants. 17:09 Neuro: patient responsive to painful stimuli. 17:09 Skin: Warm, dry with normal turgor. Normal color with no rashes, no lesions, and no pm1 evidence of cellulitis. 20:13 Radiologist reports: Negative CT brain pm1 Vital Signs: 16:52 BP 145 / 96; Pulse 78; Resp 14 S; Temp 97.1(TE); Pulse Ox 100% on R/A; Weight 113.4 kg; jd3 Height 5 ft. 11 in. (180.34 cm) (R); 17:47 BP 137 / 89; Pulse 69; Resp 18 S; Pulse Ox 99% on R/A; jd3 16:52 Body Mass Index 34.87 (113.40 kg, 180.34 cm) jd3 Homero Coma Score: 16:54 Eye Response: to voice(3). Verbal Response: none(1). Motor Response: localizes pain(5). jd3 Total: 9. 17:47 Eye Response: to voice(3). Verbal Response: incomprehensible(2). Motor Response: obeys jd3 commands(6). Total: 11. MDM: 16:52 Patient medically screened. pm1 18:04 Physician consultation: Myron Morton MD regarding consult, patient's condition, pm1 admit for observation for patient to return to baseline from postictal period. No MRI necessary. Patient with negative CT head today and she has similar presentation of her seizures due to no compliance with seizure medications 4 days ago had a negative CT head and MRI. 18:58 Data reviewed: vital signs. Data interpreted: Pulse oximetry: on room air is 99 %. pm1 Interpretation: normal. Counseling: I had a detailed discussion with the patient and/or guardian regarding: the historical points, exam findings, and any diagnostic results supporting the discharge/admit diagnosis, lab results, radiology results, the need for further work-up and treatment in the hospital. 11/07 16:57 Order name: Glucose, Ancillary Testing; Complete Time: 17:01 EDMS 11/07 17:00 Order name: Basic Metabolic Panel; Complete Time: 17:48 pm1 11/07 17:00 Order name: CBC with Diff; Complete Time: 17:31 pm1 11/07 17:00 Order name: LFT's; Complete Time: 17:48 pm1 11/07 17:00 Order name: Magnesium; Complete Time: 17:48 pm1 11/07 17:00 Order name: NT PRO-BNP; Complete Time: 17:48 pm1 11/07 17:00 Order name: PT-INR; Complete Time: 17:31 pm1 11/07 17:00 Order name: Troponin HS; Complete Time: 17:48 pm1 11/07 17:00 Order name: XRAY Chest (1 view); Complete Time: 17:55 pm1 11/07 19:10 Order name: SARS-COV-2 RT PCR (Document "Date of Onset" if Symptomatic) jd3 11/07 20:16 Order name: Urine Dipstick-Ancillary; Complete Time: 20:18 EDMS 11/07 20:17 Order name: Urine Microscopic Only mw2 11/07 20:17 Order name: Urine Culture 2 11/07 20:24 Order name: Urine Microscopic Only; Complete Time: 20:35 EDMS 11/07 17:00 Order name: EKG; Complete Time: 17:01 pm1 11/07 17:00 Order name: Cardiac monitoring; Complete Time: 17:02 pm1 11/07 17:00 Order name: EKG - Nurse/Tech; Complete Time: 17:02 pm1 11/07 17:00 Order name: IV Saline Lock; Complete Time: 17:32 pm1 11/07 17:00 Order name: Labs collected and sent; Complete Time: 17:32 pm1 11/07 17:00 Order name: O2 Per Protocol; Complete Time: 17:02 pm1 11/07 17:00 Order name: O2 Sat Monitoring; Complete Time: 17:02 pm1 11/07 17:00 Order name: CT Head Brain wo Cont; Complete Time: 18:27 pm1 11/07 18:44 Order name: Urine Dipstick-Ancillary (obtain specimen); Complete Time: 20:19 pm1 11/07 18:44 Order name: Straight Cath - Urine; Complete Time: 20:19 pm1 Administered Medications: 17:45 Drug: Keppra (levETIRAcetam) 1000 mg Route: IV; Rate: calculated rate; Site: left jd3 antecubital; Disposition Summary: 11/07/21 18:59 Hospitalization Ordered Hospitalization Status: Observation pm1 Provider: Dafne Larry pm1 Location: Telemetry/MedSurg (observation) pm1 Condition: Stable pm1 Problem: new pm1 Symptoms: have improved pm1 Bed/Room Type: Standard pm1 Room Assignment: 203(11/07/21 20:56) cg Diagnosis - Conversion disorder with seizures or convulsions pm1 Forms: - Medication Reconciliation Form pm1 - SBAR form pm1 Addendum: 11/15/2021 06:56 Co-signature as Attending Physician, Darren Vasquez MD I agree with the assessment and k dr plan of care. Signatures: Dispatcher [employer] EDMS Darren Vasquez MD MD kdr Garcia, Cindy, RN RN cg Danny Roblero, [place] THER[employer]IST RADIATION pm1 Ysabel Iniguez RN RN jl7 Oscar Maravilla RN RN Katie Galvin RN RN sm5 Corrections: (The following items were deleted from the chart) 11/07 18:01 16:52 PMHx: Seizure; mook price 20:15 17:09 Skin: Exam negative for pm1 pm1 20:56 18:59 pm1 cg
--- NOTE | 2021-11-07 19:00 | ER ---
Nurse's Notes [facility] Name: Naz Boyle Age: 41 yrs Sex: Female : 1980 Arrival Date: 11/07/2021 Time: 16:41 Bed 4 Private MD: Diagnosis: Conversion disorder with seizures or convulsions Presentation: 11/07 16:49 Chief complaint: EMS states: "pt was found down on the ground. last known well was at jd3 1400. pt was only responsive to painful stimuli. stable vitals. family reports she has a history of CVA's and seizures.". Coronavirus screen: At this time, the client does not indicate any symptoms associated with coronavirus-19. Ebola Screen: No symptoms or risks identified at this time. Initial Sepsis Screen: Does the patient meet any 2 criteria? No. Patient's initial sepsis screen is negative. Does the patient have a suspected source of infection? No. Patient's initial sepsis screen is negative. Risk Assessment: Do you want to hurt yourself or someone else? Patient reports no desire to harm self or others. Onset of symptoms was November 07, 2021. 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: 16:52 LMP N/A - Hysterectomy jd3 Historical: - Allergies: 16:52 Prednisone; jd3 - Home Meds: 16:52 Keppra 1500 mg Oral 2 times per day [Active]; jd3 17:58 aspirin 81 mg Oral TbEC 1 tab once daily [Active]; levothyroxine 200 mcg oral cap jl7 [Active]; Crestor 10 mg Oral tab 1 tab once daily [Active]; midodrine 2.5 mg Oral tab 1 tab 3 times per day [Active]; Vimpat 50 mg Oral tab 1 tab 2 times per day [Active]; gabapentin 100 mg Oral tab 3 caps bid [Active]; Plavix 75 mg Oral tab 1 tab once daily [Active]; - PMHx: 16:52 Lupus; Rheumatoid Arthritis; Seizures; RLS; Hypothyroidism; PERIPHERAL NEUROPATHY; jd3 Migraine; insomnia; hypotension; Hypercholesterolemia; CVA; BRADYCARDIA; SVT; - PSHx: 16:52 Appendectomy; Cholecystectomy; carpal tunnel luis miguel hands; Total abdominal hysterectomy; jd3 - Immunization history:: Adult Immunizations unknown. - Social history:: Smoking status: unknown. Screenin:54 Abuse screen: Denies threats or abuse. Nutritional screening: No deficits noted. jd3 Tuberculosis screening: No symptoms or risk factors identified. Fall Risk Ambulatory Aid- None/Bed Rest/Nurse Assist (0 pts). Gait- Normal/Bed Rest/Wheelchair (0 pts) Mental Status- Oriented to own ability (0 pts). Total Chirinos Fall Scale indicates No Risk (0-24 pts). Assessment: 16:55 General: Appears comfortable, Behavior is unresponsive. Pain: Unable to use pain scale. jd3 FLACC scale score is 0 out of 10. Neuro: Level of Consciousness is confused, lethargic, stuporous, Oriented to none Facial symmetry appears normal. Cardiovascular: Capillary refill < 3 seconds Patient's skin is warm and dry. Rhythm is regular. Respiratory: Airway is patent Respiratory effort is even, unlabored, Respiratory pattern is regular, symmetrical, Denies. GI: No signs and/or symptoms were reported involving the gastrointestinal system. : No signs and/or symptoms were reported regarding the genitourinary system. EENT: No signs and/or symptoms were reported regarding the EENT system. Derm: Skin is intact, Skin is dry, Skin is pale, Skin temperature is warm. Musculoskeletal: No signs and/or symptoms reported regarding the musculoskeletal system. 17:45 Reassessment: Patient appears in no apparent distress at this time. Patient and/or jd3 family updated on plan of care and expected duration. Pain level reassessed. pt is able to answer yes and no questions by shaking head yes and no. pt reporting pain to her head. provider notified. Neuro: Alvarado Agitation-Sedation Scale (RASS): -1 Drowsy Level of Consciousness is awake, lethargic. Cardiovascular: Capillary refill < 3 seconds Patient's skin is warm and dry. Respiratory: Airway is patent Respiratory effort is even, unlabored, Respiratory pattern is regular, symmetrical. 20:00 General: Appears in no apparent distress. Behavior is cooperative. Neuro: Level of sm5 Consciousness is awake, alert. Cardiovascular: Capillary refill < 3 seconds Patient's skin is warm and dry. Respiratory: Airway is patent Trachea midline Respiratory effort is even, unlabored. Vital Signs: 16:52 BP 145 / 96; Pulse 78; Resp 14 S; Temp 97.1(TE); Pulse Ox 100% on R/A; Weight 113.4 kg; jd3 Height 5 ft. 11 in. (180.34 cm) (R); 17:47 BP 137 / 89; Pulse 69; Resp 18 S; Pulse Ox 99% on R/A; jd3 16:52 Body Mass Index 34.87 (113.40 kg, 180.34 cm) jd3 Homero Coma Score: 16:54 Eye Response: to voice(3). Verbal Response: none(1). Motor Response: localizes pain(5). jd3 Total: 9. 17:47 Eye Response: to voice(3). Verbal Response: incomprehensible(2). Motor Response: obeys jd3 commands(6). Total: 11. ED Course: 16:41 Patient arrived in ED. jl7 16:44 Danny Roblero NP is PHCP. pm1 16:44 Darren Vasquez MD is Attending Physician. pm1 16:49 Oscar Maravilla RN is Primary Nurse. jd3 16:52 Triage completed. jd3 16:54 Arm band placed on. EKG completed in triage. Results shown to MD. jd3 16:54 Patient has correct armband on for positive identification. Bed in low position. Call j light in reach. Side rails up X2. Adult w/ patient. Seizure precautions initiated. Client placed on continuous cardiac and pulse oximetry monitoring. NIBP monitoring applied. monitoring and evaluation advisor on. Pulse ox on. NIBP on. 16:54 Maintain EMS IV. Dressing intact. Good blood return noted. Site clean \\T\\ dry. Gauge \\T\\ alexei 3 site: 20 G left AC. 16:59 EKG done, by ED staff, reviewed by Danny Roblero NP. mb7 17:30 XRAY Chest (1 view) In Process Unspecified. EDMS 18:10 CT Head Brain wo Cont In Process Unspecified. EDMS 18:59 Dafne Larry MD is Hospitalizing Provider. pm1 19:42 Primary Nurse role handed off by Oscar Maravilla, RN mw2 19:56 Katie Corrales RN is Primary Nurse. sm5 20:19 Urine Microscopic Only Sent. sm5 20:19 Urine Culture Sent. sm5 21:23 No provider procedures requiring assistance completed. Patient admitted, IV remains in [facility] place. Administered Medications: 17:45 Drug: Keppra (levETIRAcetam) 1000 mg Route: IV; Rate: calculated rate; Site: left [facility] antecubital; Medication: 16:54 VIS not applicable for this client. [facility] Outcome: 18:59 Decision to Hospitalize by Provider. pm1 21:24 Admitted to Med/surg accompanied by tech, via stretcher, with chart, Report called to [facility] LIZZY Mendez 21:24 Condition: stable 21:24 Instructed on the need for admit. 21:25 Patient left the ED. [facility] Signatures: Dispatcher [employer] EDMS Danny Roblero NP PREPARED [employer] SERVICE TEAM MEMBER pm1 Ysabel Iniguez RN RN [email or web address] Oscar Maravilla RN RN Nano Interiano 2 Caitlin Garcia 7 Katie Corrales, RN RN 5 Corrections: (The following items were deleted from the chart) 18:01 16:52 PMHx: Seizure; mook price
--- NOTE | 2021-11-07 19:15 | EKG ---
Test Date: 2021-11-07 Test Time: 16:52:48 House Officer: MB MEASUREMENT RESULTS: Intervals: Rate: 70 [place]: 154 QRSD: 82 QT: 402 QTc: 434 [place]: P: [place]: 154 QRS: 77 T: 145 INTERPRETIVE STATEMENTS: Sinus rhythm with fusion complexes Lateral infarct, age undetermined ST & T wave abnormality, consider inferior ischemia Abnormal ECG Compared to ECG 08/21/2021 17:15:07 Fusion complex(es) now present Myocardial infarct finding now present ST (T wave) deviation now present Possible ischemia now present Electronically Signed On 11-07-21 19:15:36 CDT by Clement Dawson
[2021-11-07 20:16] LABS: Urine Blood Negative (Negative); Urine Glucose Negative (Negative); Urine Protein Negative (Negative); Urine Specific Gravity 1.015 (1.005-1.030)
--- NOTE | 2021-11-07 20:29 | P.HP ---
Certification for Inpatient Patient admitted to: Observation With expected LOS: <2 Midnights Patient will require the following post-hospital care: None Practitioner: I am a practitioner with admitting privileges, knowledge of patient current condition, hospital course, and medical plan of care. Services: Services provided to patient in accordance with Admission requirements found in Title 42 Section 412.3 of the Code of Federal Regulations Patient History Date of Service: 11/07/21 Primary Care Provider: Lse Reason for admission: Seizure vs CVA History of Present Illness: Patient is a 41-year-old female with history of previous CVA, migraines, seizure disorder, lupus, rheumatoid arthritis, and hypothyroidism who presented to the ED via EMS after being found down. Per patient's , their daughter found her on the floor. She was breathing and had a pulse but was unresponsive. Per EMS, she was responsive only to painful stimuli. Vital signs WNL. Head CT negative. Labs WNL. She was given 1000 mg of Keppra IV and slowly become more awake. She is oriented x 3 but does not respond to questions verbally. Patient with baseline paresis of left lower extremity with weakness of the right lower extremity and bilateral upper extremities. Per patient's , patient has not taken her Keppra in over a month due to insurance reasons. Last witnessed seizure was [address] Morton was notified and does not recommend MRI or further intervention at this time. We will admit patient for observation. Allergies No Known Allergies Allergy (Verified 05/05/21 14:48) Home medications list reviewed: Yes Home Medications: Gabapentin 2 tab PO BID 01/10/20 Midodrine HCl 2.5 mg PO TID 01/10/20 Rosuvastatin Calcium [Crestor] 1 tab PO DAILY 01/10/20 levETIRAcetam [Keppra*] 1,500 mg PO BID 01/10/20 Lacosamide [Vimpat] 50 mg PO BID 01/11/20 Trazodone [Desyrel*] 150 mg PO BEDTIME 01/11/20 Aspirin [Aspirin EC 81 MG] 81 mg PO DAILY #30 tablet. 01/12/20 Hydroxychloroquine [Plaquenil*] 200 mg PO DAILY 05/01/21 Linaclotide [Linzess] 240 mcg PO DAILY 05/01/21 Topiramate [Topamax] 25 mg PO DAILY 05/01/21 Ubrogepant [Ubrelvy] 50 mg PO QID PRN 05/01/21 Clopidogrel Bisulfate [Plavix*] 75 mg PO DAILY #30 tablet 05/04/21 Folic Acid 1 mg PO DAILY #90 tablet 05/04/21 Levothyroxine [Synthroid*] 0.2 mg PO DAILYAC #30 tab 05/04/21 Nicotine [Nicoderm*] 14 mg TD DAILY #30 patch.td24 05/04/21 Acetam/Caff/Butal [Fioricet*] 1 tab PO Q6HP PRN #30 tab 05/18/21 Clopidogrel Bisulfate [Plavix*] 75 mg PO DAILY #30 tablet 05/18/21 - Past Medical/Surgical History Diabetic: No -: Seizure Disorder -: hypothyroidism -: hypotension -: lupus -: Rheumatoid arthritis -: Restless leg syndrome -: Bradycardia -: CVA -: Appendectomy -: hysterectomy -: -: Carpal tunnel surgery Psychosocial/ Personal History: patient is disabled, lives at home with her - Family History Mother -: Heart disease, Diabetes Brother -: Heart disease, Diabetes, Seizures - Social History Smoking Status: Current some day smoker Alcohol use: No CD- Drugs: No Caffeine use: Yes Place of Residence: Home Review of Systems General: Other (headache) Physical Examination - Physical Exam General: Alert, In no apparent distress, Oriented x3, Other (responds nonverbally) HEENT: Atraumatic, PERRLA, EOMI, Sclerae nonicteric Neck: Supple, 2+ carotid pulse no bruit, No LAD, Without JVD or thyroid abnormality Respiratory: Clear to auscultation bilaterally, Normal air movement Cardiovascular: Regular rate/rhythm, Normal S1 S2 Gastrointestinal: Normal bowel sounds, No tenderness Musculoskeletal: No tenderness Integumentary: No rashes Neurological: Abnormal strength, Abnormal sensation (Sensation intact on face, declines sensation in all 4 extremities) - Studies Laboratory Data (last 24 hrs) 11/07/21 17:00: PT 10.7, INR 0.97 11/07/21 17:00: WBC 8.7, Hgb 13.4, Hct 39.5, Plt Count 252 11/07/21 17:00: Sodium 137, Potassium 3.5, BUN 5 L, Creatinine 1.22, Glucose 90, Magnesium 2.6 H, Total Bilirubin 0.3, AST 19, ALT 18, Alkaline Phosphatase 75 Assessment and Plan - Problems (Diagnosis) (1) Migraines Current Visit: Yes Status: Chronic Qualifiers: Migraine type: unspecified Intractability: not intractable (2) Seizure disorder Current Visit: Yes Status: Chronic (3) Medication nonadherence due to psychosocial problem Current Visit: Yes Status: Chronic (4) SLE (systemic lupus erythematosus) Current Visit: No Status: Chronic Qualifiers: Systemic lupus erythematosus type: unspecified Systemic lupus erythematosus organ involvement: unspecified Qualified Code(s): M32.9 - Systemic lupus erythematosus, unspecified (5) UTI (urinary tract infection) Current Visit: Yes Status: Acute Qualifiers: Urinary tract infection type: acute cystitis Hematuria presence: without hematuria Qualified Code(s): N30.00 - Acute cystitis without hematuria - Plan -Cont IV Keppra -Rocephin for UTI -Seizure precautions and neuro checks -Dr. Morton consulted -Physical therapy consult -Gentle IV hydration -Reconcile other home medications -Lovenox for VTE ppx -Full code Discharge Plan: Home Plan to discharge in: 24 Hours - Advance Directives Does patient have a Living Will: No Does patient have a Durable POA for Healthcare: No - Code Status/Comfort Care Code Status Assessed: Yes (Full) Critical Care: No Time Spent Managing Pts Care (In Minutes): 50
[2021-11-07 20:33] LABS: Urine Bacteria <20 /HPF (<20); Urine RBC <5 /HPF (NONE SEEN)
[2021-11-07 20:34] LABS: Urine Mucus 1+ /HPF (NONE SEEN)
[2021-11-07] MEDS ORDERED: KETOROLAC 30 MG/ML INJ IV ONE (20:41)
[2021-11-07] MEDS ORDERED: ACETAMINOPHEN 500 MG TAB PO PRN (21:20)
[2021-11-07] MEDS: levETIRAcetam 1,500 MG in NA CHLORIDE 0.9% 100 ML IV SCH (21:20)
[2021-11-07] MEDS ORDERED: ONDANSETRON 4 MG/2 ML VIAL IV PRN (21:20)
[2021-11-07 21:51] VITALS: O2SAT 99
[2021-11-07] MEDS: NA CHLORIDE 0.9% 1,000 ML IV SCH (21:51)
[2021-11-07 23:10] VITALS: BMI 34.0
[2021-11-07] MEDS ORDERED: MORPHINE 4 MG/ML SYR IV PRN (23:24)
[2021-11-08] MEDS: NA CHLORIDE 0.9% 1,000 ML IV SCH ×2 (04:59→18:52)
[2021-11-08 05:43] LABS: Absolute Lymphocytes (CBC) 3.3 K/uL (0.7-4.9); Hematocrit 35.6 % (36.0-45.0); MPV 7.2 fL (7.6-11.3); RBC Red Blood Cell Count 4.03 M/uL (3.86-4.86)
[2021-11-08 06:25] LABS: Magnesium 2.4 mg/dL (1.8-2.4); Phosphorus 3.2 mg/dL (2.5-4.9); Potassium 3.7 mmol/L (3.5-5.1)
[2021-11-08 07:59] LABS: Blood Morphology Comment NOT SEEN (NOT SEEN); Platelet Estimate ADEQ
[2021-11-08] MEDS: ENOXAPARIN 40 MG/0.4 ML SQ SCH (08:37)
[2021-11-08] MEDS: CEFTRIAXONE 1,000 MG in NA CHLORIDE 0.9% 50 ML IVPB SCH (08:37)
[2021-11-08] MEDS ORDERED: POTASSIUM 25 MEQ EFFERV TAB PO ONE (09:00)
[2021-11-08] MEDS: levETIRAcetam 1,500 MG in NA CHLORIDE 0.9% 100 ML IV SCH ×2 (09:53→22:03)
[2021-11-08] MEDS ORDERED: LORazepam 2 MG/ML VIAL IV ONE ×2 (10:43→12:30)
[2021-11-08] MEDS ORDERED: LORazepam 2 MG/ML VIAL ONE (12:41)
--- NOTE | 2021-11-08 14:48 | RAD REPORT ---
EXAM DESCRIPTION: MRI - Brain Wo Cont - 11/08/2021 1:23 pm CLINICAL HISTORY: DIFFUSE WEAKNESS COMPARISON: Brain W/Wo Cont dated 11/03/2021; Brain W/Wo Cont dated 05/02/2021; MRA Head Wo Cont dated 05/02/2021; Brain W/Wo Cont dated 01/10/2020 TECHNIQUE: Sagittal T1-weighted images were obtained along with PD/heavily T2-weighted and T2-FLAIR images. Axial DWI and ADC mapping sequences were also obtained along with coronal heavily T2-weighted images were obtained. FINDINGS: No intracranial hemorrhage, mass or acute infarction. There is no edema or shift of midlin e structures. No extra-axial fluid collections. Signal voids are seen as a normal finding in the doreen r intracranial vessels. No significant white matter disease. Mastoid air cells and paranasal sinuses are clear. IMPRESSION: No acute intracranial abnormality. The exam is within normal limits. No significant fortune ge compared with 11/03/2021.
--- NOTE | 2021-11-08 15:13 | RAD REPORT ---
EXAM DESCRIPTION: MRI - C Spine Wo Cont - 11/08/2021 1:23 pm CLINICAL HISTORY: DIFFUSE WEAKNESS COMPARISON: No comparisons TECHNIQUE: Sagittal T1-weighted, T2-weighted and T2-STIR sequences were obtained as well as axial T2 medic sequence obtained. FINDINGS: Axial sequences limited by motion. Congenital narrowing of the central canal which results in spinal stenosis that is moderate at C3-4, C4-5, C5-6, and to lesser extent C6-7. The AP diameter of the canal for example at C3-4 measures 10 millimeters. The AP diameter of the corresponding vertebral body measures 18 millimeters.No abnormal cord signal. No significant focal degenerative changes. . Cerebellar tonsils and mid-line skull base show no suspicious finding. No significant finding at the C1 and C2 levels. IMPRESSION: Congenital cervical spinal stenosis with moderate canal narrowing. No significant focal degenerative changes. No abnormal cord signal.
--- NOTE | 2021-11-08 23:44 | P.PN ---
Subjective Date of Service: 11/08/21 Patient with diffuse paresthesias and weakness. Patient's clinical symptoms are really not improving. MRI of the brain and C-spine pending Review of Systems 10-point ROS is otherwise unremarkable Physical Examination - Vital Signs Temperature: 96.9 F Blood Pressure: 101/65 Pulse: 73 Respirations: 18 Pulse Ox (%): 97 - Physical Exam General: Alert, In no apparent distress HEENT: Atraumatic, PERRLA, EOMI Neck: Supple, JVD not distended Respiratory: Clear to auscultation bilaterally, Normal air movement Cardiovascular: Regular rate/rhythm, Normal S1 S2 Gastrointestinal: Normal bowel sounds, No tenderness Musculoskeletal: No tenderness Integumentary: No rashes Neurological: Normal speech, Normal tone, Normal affect Lymphatics: No axilla or inguinal lymphadenopathy - Studies Laboratory Data (last 24 hrs) 11/08/21 05:20: Sodium 138, Potassium 3.7, BUN 7, Creatinine 0.96, Glucose 84, Phosphorus 3.2, Magnesium 2.4, Triglycerides 133, Cholesterol 294 H, HDL Cholesterol 44, Cholesterol/HDL Ratio 6.68 11/08/21 05:11: WBC 7.1 D, Hgb 12.2, Hct 35.6 L, Plt Count 236 Medications List Reviewed: Yes Assessment & Plan - Problems (Diagnosis) (1) Migraines Current Visit: Yes Status: Chronic Qualifiers: Migraine type: unspecified Intractability: not intractable (2) Seizure disorder Current Visit: Yes Status: Chronic (3) Acute CVA (cerebrovascular accident) Current Visit: No Status: Acute (4) Conversion disorder Current Visit: Yes Status: Acute - Plan -Anti epileptics -EEG -MRI and CT of the brain -neurology consultation -Ativan as needed -seizure precaution -physical therapy evaluation - Advance Directives Does patient have a Living Will: No Does patient have a Durable POA for Healthcare: No
[2021-11-09] MEDS: NA CHLORIDE 0.9% 1,000 ML IV SCH ×3 (03:20→13:16)
[2021-11-09] MEDS: levETIRAcetam 1,500 MG in NA CHLORIDE 0.9% 100 ML IV SCH (08:31)
[2021-11-09] MEDS: CEFTRIAXONE 1,000 MG in NA CHLORIDE 0.9% 50 ML IVPB SCH (08:31)
[2021-11-09] MEDS: clonazePAM 0.5 MG TAB PO SCH ×2 (08:32→13:16)
[2021-11-09] MEDS: ENOXAPARIN 40 MG/0.4 ML SQ SCH (08:33)
[2021-11-09 09:04] VITALS: BP 105/70; TEMP 97.2
[2021-11-09] MEDS ORDERED: HYDROCODONE/APAP 5/325 MG TAB PO PRN (10:00)
== END 2021-11-09 15:30 | disposition left against medical advice (07) | DRG 101 ==
LOC: ER 16:39 → ERHOLD 20:24 → 2ND 21:16 → OBSVTOIN 11-08 15:31
PROVIDERS: ADMIT Hospitalist; ATTEND Hospitalist
DX: G40.909 Epilepsy, unspecified, not intractable, without status epilepticus (principal); N30.00 Acute cystitis without hematuria; G43.909 Migraine, unspecified, not intractable, without status migrainosus; Z53.29 Procedure and treatment not carried out because of patient's decision for other reasons; F44.9 Dissociative and conversion disorder, unspecified; M32.9 Systemic lupus erythematosus, unspecified; E03.9 Hypothyroidism, unspecified; M06.9 Rheumatoid arthritis, unspecified; G25.81 Restless legs syndrome; R00.1 Bradycardia, unspecified; I95.9 Hypotension, unspecified; G62.9 Polyneuropathy, unspecified; G47.00 Insomnia, unspecified; E78.00 Pure hypercholesterolemia, unspecified; F17.200 Nicotine dependence, unspecified, uncomplicated; Z20.822 Contact with and (suspected) exposure to COVID-19; Z91.14 Patient's other noncompliance with medication regimen; Z86.73 Personal history of transient ischemic attack (TIA), and cerebral infarction without residual deficits; Z79.82 Long term (current) use of aspirin; Z79.02 Long term (current) use of antithrombotics/antiplatelets; Z79.899 Other long term (current) drug therapy; Z88.8 Allergy status to other drugs, medicaments and biological substances; Z90.710 Acquired absence of both cervix and uterus; Z90.49 Acquired absence of other specified parts of digestive tract; Z82.0 Family history of epilepsy and other diseases of the nervous system; Z82.49 Family history of ischemic heart disease and other diseases of the circulatory system; Z83.3 Family history of diabetes mellitus
CPT/HCPCS: 36415; 70450; 70551; 71045; 72141; 80048; 80061; 80076; 81003; 81015; 82947; 83735; 83880; 84100; 84439; 84443; 84484; 85025; 85610; 87077; 87086; 87088; 87186; 93005; 96374; 97110; 97161; 97530; 99285; G0378; J1650; J1953; J2405; J7030; U0003

== ENCOUNTER 2022-03-13 20:52 | Inpatient (IN) | payer BC, SELFPAY ==
--- OUTSIDE RECORDS SUMMARY | 2022-03-13 20:55 | XMS REPORT | Continuity of Care Document ---
:1980 Author Organization [facility] t Address [address] [place] [address] Care Team Providers Name Role Phone Dereck Lucas MD Primary Care Physician DERECK LUCAS Attending Clinician Unavailable Janene Raymond Attending Clinician Payers Payer Name Policy Type Policy Number Effective Date Expiration Date S ource Problems Condition Condition Condition Status Onset Resolution Last Treating Co mments Source Name Details Category Date Date Treatment Clinician Date No known No known Disease Unive rs active active ity of problems problems [facility] Allergies, Adverse Reactions, Alerts Allergy Allergy Status Severity Reaction(s) Onset Inactive Treating Comm ents Source Name Type Date Date Clinician Predniso Propensi Active Rash "When I Metho di ne ty to 4-[address] adverse 00:00: 20mg Hospita reaction 00 daily I l s to broke out drug in a rash". NO KNOWN Drug Active Univers ALLERGIE Class ity of S [facility] Social History Social Habit Start Date Stop Date Quantity Comments Source History of Smokes tobacco [facility] tobacco use daily Hospital History SDOH [facility] Alcohol Std Hospital Drinks History SDOH [facility] Alcohol Binge Hospital Exposure to Not sure University of SARS-CoV-[address] [facility] [place] [place] (event) [place] Tobacco use and 2020-09-07 2020-09-07 Smokeless tobacco [facility] exposure 00:00:00 00:00:00 non-user Hospital Alcohol intake 2020-09-07 2020-09-07 Lifetime [facility] 00:00:00 00:00:00 non-drinker Hospital (finding) History SDOH 2020-09-07 2020-09-07 1 [facility] Alcohol Frequency 00:00:00 00:00:00 Hospita l Sex Assigned At [birth year] [facility] 00:00:00 00:00:00 Hospital Smoking Status Start Date Stop Date Source Smokes tobacco daily 2020-09-07 00:00:00 [facility] Unknown if ever smoked [facility] Medications Ordered Filled Start Stop Current Ordering Indication Dosage Frequency Signature Comments Components Source Medication Medication Date Date Medication? Clinician (SIG) Name Name traZODone Yes 100mg QD Take 100 Met hodi (DESYREL) 4-[address] 50 MG 09:30: mouth Hospita tablet 01 nightly. l aspirin Yes 81mg QD Take 81 mg Meth nicolasa (ECOTRIN) 4-[address] 81 MG 09:30: daily. Hospita enteric 01 l coated tablet Lactobac Yes Take by Method i no.41/Bifid 4-[address] obact no.7 09:30: Hospita (PROBIOTIC- 01 l 10 ORAL) midodrine Yes 2.5mg Q.[id number] Take 2.5 Method[facility] (PROAMATINE 4-15 [id number] mg by s t ) 2.5 MG 09:30: 3D mouth 3 Hospit a tablet 01 (three) l times a day. lacosamide Yes 50mg Q.5D Take 50 mg M ethodi (Vimpat) 50 4-[address] mg tablet 09:30: (two) Hospita 01 times a l day. levETIRAcet Yes 250mg Take 250 M ethodi am (KEPPRA) 4-[address] 250 MG 09:30: mouth. Hospita tablet 01 Taking l 1,500mg BID. levothyroxi Yes 175ug QD Take 175 M ethodi ne 4-[address] (SYNTHROID) 09:30: mouth Hospi ta 175 mcg 01 daily. l tablet rosuvastati Yes 10mg QD Take 10 mg Methodi n (CRESTOR) 4-[address] 10 mg 09:30: daily. Hospita tablet 01 l gabapentin Yes 100mg Take 100 Me thodi (NEURONTIN) 4-[address] 100 mg 09:30: mouth. Hospita capsule 01 Taking 1 l tablet in the AM and 3 tablets in the PM. hydrOXYchlo Yes 200mg QD Take 200 M ethodi roQUINE 4-[address] (PLAQUENIL) 09:30: mouth Hospi ta 200 mg 01 daily. l tablet lubiproston Yes 24ug Q.5D Take 24 Met hodi e (AMITIZA) 4-[address] 24 MCG 09:30: mouth 2 Hospita capsule 01 (two) l times a day with meals. amoxicillin 2020- No 1{tbl} 1 tablet, Univers -clavulanat 05-31 Oral, ONCE i ty of e 05:00: 04:02 NOW, 1 Rachel (AUGMENTIN) 00 :00 dose, [facility] ical 875-125 mg 05/30/[address] [facility] per tablet 2300, 1 tablet Routine
Reason for Anti-Infec tive: Documented Infection< br>Documen justino Infection Site: Respirator y
Durat ion of Therapy: Other (see Comments) ketorolac 2020- No 15mg 15 mg, Unive rs (TORADOL) 05-31 Slow IV ity of injection 03:30: 02:26 Push, Rachel 15 mg 00 :00 ONCE, 1 Medical dose, [facility] 05/30/20 at 2130, EVANS
Fa culty member approving Restricted medication : JANENE NAVAS R hydrOXYzine 2020- No 25mg 25 mg, Uni vers (ATARAX) 05-31 Oral, ity of tablet 25 03:30: 02:26 ONCE, 1 [place] mg 00 :00 dose, [facility] 05/30/20 at Branch 2130, EVANS famotidine 2020- No 20mg 20 mg, Univ ers (PEPCID 05-31 Slow IV ity of (PF)) 03:30: 02:26 Push, [place] injection 00 :00 ONCE, 1 Medical 20 mg dose, [facility] 05/30/20 at 2130, EVANS iohexol 2020- No 100mL 100 mL, Unive rs (OMNIPAQUE 05-31 Intravenou it y of 350 01:45: 01:37 s, ONCE, 1 [place] BULK-150 00 :00 dose, e Medica l mL) 05/30/20 at Branch injection 194, 100 mL Routine butalbital- 2020- No 1{tbl} 1 tablet, Univers acetaminoph 05-31 Oral, ONCE i ty of en-caff 01:45: 00:52 NOW, 1 [place] (ESGIC) 00 :00 dose, [facility] 50-325-40 05/30/20 at Bran h mg tablet 1 1944, tablet Routine diphenhydrA 2020- No 50mg 50 mg, Uni vers MINE 05-31 Slow IV ity of (BENADRYL) 00:15: 00:52 Push, [place] injection 00 :00 ONCE, 1 Medical 50 mg dose, [facility] 05/30/20 at 1815, STAT methylPREDN No 40mg 40 mg, IV Univers ISolone sod 05-31 Piggyback, i ty of succ 00:15: 00:52 ONCE, 1 [place] (SOLU-MEDRO 00 :00 dose, [facility] ical L (PF)) 05/30/20 at Branch injection 1815, STAT 40 mg NaCl 0.9% 2020- No 1000mL at 999 Uni vers (NS) bolus 05-3006 mL/hr, ity of infusion 23:15: 02:15 1,000 mL, Toney as 1,000 mL 00 :00 IV Medical Infusion, [place] ONCE, 1 dose, [facility] 05/30/20 at 1715, EVANS albuterol Yes [id number] 2{puff} Inhale 2 Univers 90 1-05 Puffs ity of mcg/actuati 00:00: every 4 [place] as on inhaler 00 (four) Medical hours as Branch needed for Wheezing or Shortness of Breath. hydrOXYzine Yes [id number] 25mg Take 1 Univers 25 mg 1-05 tablet by ity of tablet 00:00: mouth [place] 00 every 6 Medical (six) Branch hours as needed for Itching. amoxicillin 2020- No [id number] 1{tbl} Take 1 Univers -clavulanat 1-05 - tablet by it y of e 875-125 [...] Source Systolic blood 2020-05-31 03:01:00 105 mm[Hg] [facility] Diastolic blood 2020-05-31 03:01:00 71 mm[Hg] [facility] Heart rate 2020-05-31 03:01:00 73 /min [facility] Body temperature 2020-05-31 03:01:00 36.56 Yanet [facility] Respiratory rate 2020-05-31 03:01:00 18 /min [facility] Oxygen saturation in 2020-05-31 03:01:00 98 /min [facility] Arterial blood by [facility] Pulse oximetry Branch Body height 2020-05-30 21:27:00 180.3 cm [facility] Body weight 2020-05-30 21:27:00 92.987 kg [facility] BMI 2020-05-30 21:27:00 28.59 kg/m2 [facility] Systolic blood 2020-05-31 03:01:00 105 mm[Hg] Univer [facility] Branch Diastolic blood 2020-05-31 03:01:00 71 mm[Hg] Unive rsity of pressure [facility] Heart rate 2020-05-31 03:01:00 73 /min [facility] Body temperature 2020-05-31 03:01:00 36.56 Yanet [facility] Respiratory rate 2020-05-31 03:01:00 18 /min [facility] Oxygen saturation in 2020-05-31 03:01:00 98 /min [facility] Arterial blood by [facility] Pulse oximetry [place] Body height 2020-05-30 21:27:00 180.3 cm [facility] Body weight 2020-05-30 21:27:00 92.987 kg [facility] BMI 2020-05-30 21:27:00 28.59 kg/m2 [facility] Procedures Procedure Date / Time Performed Performing Clinician Sour e URINALYSIS 2020-05-31 03:43:[address] [facility] CT CHEST PULMONARY 2020-05-31 01:43:20 Janene Navas [facility] ANGIOGRAM Medical Branch POCT TEST 2020-05-31 01:29:00 Janene Navas [facility] COVID-19 (ID NOW RAPID 2020-05-31 00:53:00 [facility] Medical [place] XR CHEST 1 VW 2020-05-31 00:09:[address] [facility] TROPONIN I 2020-05-31 00:03:[address] [facility] COMP. METABOLIC PANEL 2020-05-31 00:03:00 Janene Navas [facility] ([id number]) Medical [place] CBC WITH DIFF 2020-05-31 00:03:[address] [facility] D-DIMER 2020-05-31 00:03:[address] [facility] NOTICE OF PRIVACY 2020-05-30 21:02:17 Doctor Unassigned, No [place] [facility] Name Medical Branch Plan of Care Planned Activity Planned Date Details Comments Source Future Scheduled 2022-01-25 HEPATITIS B VACCINES Met [facility] Test 19:24:17 (1 of 3 - 3-dose series) [code = HEPATITIS B VACCINES (1 of 3 - 3-dose series)] Future Scheduled 2022-01-25 COVID-19 VACCINE (#1) [facility] Test 19:24:17 [code = COVID-19 VACCINE (#1)] Future Scheduled 2022-01-25 Pneumococcal Vaccine: [facility] Test 19:24:17 Pediatrics (0 to 5 Years) and At-Risk Patients (6 to 64 Years) (1 - PCV) [code = Pneumococcal Vaccine: Pediatrics (0 to 5 Years) and At-Risk Patients (6 to 64 Years) (1 - PCV)] Future Scheduled 2022-01-25 Hepatitis C screening [facility] Test 19:24:17 (procedure) [code = 093491922] Future Scheduled 2022-01-25 Screening for [facility] Test 19:24:17 malignant neoplasm of cervix (procedure) [code = 252523840] Future Scheduled 2022-01-25 BREAST CANCER [facility] Test 19:24:17 SCREENING [code = BREAST CANCER SCREENING] Future Scheduled 2022-01-25 INFLUENZA VACCINE Method [facility] Test 19:24:17 [code = INFLUENZA VACCINE] Encounters Start End Encounter Admission Attending Care Care Encounter Source Date/Time Date/Time Type Type Clinicians Facility Department ID 2020-09-07 2020-09-07 Outpatient DERECK LUCAS [facility] [id number] [place] 00:00:00 00:00:[address] 2020-09-07 2020-09-07 Outpatient DERECK LUCAS [facility] 817 [id number] [place] 00:00:00 00:00:[address] 2020-09-07 2020-09-07 Outpatient DERECK LUCAS [facility] [id number] [place] 00:00:00 00:00:[address] 2020-09-07 2020-09-07 Outpatient DERECK LUCAS [facility] [id number] [place] 00:00:00 00:00:[address] 2020-05-30 2020-05-30 Emergency [facility] [id number] 16:01:00 23:26:00 Janene R [place] [id number] [place] [id number] [place] [id number] [facility] 2020-05-30 2020-05-30 Emergency [facility] [id number] Univers 16:01:00 23:26:00 Janene R [place] [id number] i ty of [place] [id number] [facility] [id number] [place] [address] Branch 2020-05-30 2020-05-30 Emergency X [facility] ERT [id number] Univers 15:03:00 15:03:00 ity of [facility] Results Test Description Test Time Test Comments Results Result Comments Source URINALYSIS 2020-05-31 04:33:00 Test Item Value Reference Range Interpretation Comme nts APPEARANCE (test code = Clear Clear 1605929381) COLOR (test code = 1682173800) Yellow Yellow PH (test code = 6634318807) 4.8-8.0 SP GRAVITY (test code = 1.003-1.030 H 6482329755) GLU U QUAL (test code = Normal Normal 7812440570) BLOOD (test code = 0981013838) Negative Negative KETONES (test code = 6495308839) Negative Negative PROTEIN (test code = 2887-8) Negative Negative UROBILIN (test code = 8177244881) Normal Normal BILIRUBIN (test code = Negative Negative 0832308676) NITRITE (test code = 8030284557) Negative Negative LEUK VY (test code = Negative Negative 8601150253) RBC/HPF (test code = 7793294060) See_Comment [Automated message] The system which ge nerated this result transmit justino reference range: 0 - 3 HP F. The reference range was not used to interpret th is result as normal/abnormal . WBC/HPF (test code = 0747517528) <1 See_Comment [Automated message] The system which ge nerated this result transmit justino reference range: 0 - 5 HP F. The reference range was not used to interpret th is result as normal/abnormal . BACTERIA (test code = 3270309256) Few Negative A SQ EPITH (test code = 3318922879) <1 HPF Lab Interpretation (test code = Abnormal 82812-4) [facility] [id number] 02:56:04Impression: 1. Patchy ground glass opacities, predominating within the lower lobes. Anatypical infectious process cannot be excluded. The appearance is nottypical for COVID-19 infection, although this cannot be excluded.2. Negative for pulmonary embolus.3. Mildly enlarged subcarinal lymph node, nonspecific in appearance.4. Cholecystectomy. RL: 460 End of Report Ordering Physician: JANENE NAVAS Clinical history: Pulmonary embolus suspected, with intermediateprobability. Positive d-dimer. Comparison: None Technique: CT angiography of the chest was performed with intravenouscontrast. Axial source images, MPRS, and MIPS were reviewed. Thisexamination was performed according to ALARA principles. Findings: No filling defects are seen within the pulmonary arterial tree to suggestpulmonary embolus. There is no thoracic aortic aneurysm or di ssection.Heart size is normal. No pericardial effusion is evident. Patchy groundglass opacities are seen within both lungs, predominating within the lowerlobes. No significant areas of consolidation are evident. No pleuraleffusions are evident. There is no large subcarinal lymph node. No otherintrathoracic lymphadenopathy is apparent. The patient is status postcholecystectomy. There are mild degenerative changes of the spine. No acutebony abnormalities are evident. [facility], Radiant Results Inft User - 0 05/30/2020 8:57 PM CSTOrdering Physician: JANENE ARGUELLESlinical history: Pulmonary embolus suspected, with intermediateprobability. Positive d- dimer.Comparison: NoneTechnique: CT angiography of the chest was performed with intravenouscontrast. Axial source images, MPRS, and MIPS were reviewed. Thisexam ination was performed according to ALARA principles.Findings:No filling [...] infection, although this cannot be excluded.2. Negative forpulmonary embolus.3. Mildly enlarged subcarinal lymph node, nonspecific in appearance.4. Cholecystect rina.RL: 460End of Report [facility] 1 [id number] 02:20:50 Impression: No acute abnormalities evident. RL: 460 End of Report Ordering Physician: LOVELY NAVAS History: ?Short of breath Technique:Chest, single view Comparison: None Findings: ? The lungs are clear. No pleural effusions are evident. Heart size isnormal. The superior mediastinal silhouette is unremarkable for age andprojection. Surgical clips are seen within the right upper quadrant of theabdomen. No acute bony abnormalities are evident. [facility], Radiant Results Inft User - 05/30/2020 8:21 PM CSTOrdering Physician: JANENE NAVASHistory: Short of breathTechnique: Chest, single viewComparison: NoneFindings: The lungs are clear. No pleural effusions are evident. Heart size isnormal. The superior mediastinal silhouette is unremarkable for age andprojection. Surgical clips are seen within the right upper quadrant of theabdomen. No acute bony abnormalities are evident.IMPRESSIONImpression:No acute abnormalities evident.RL: 460End of Report [facility]viewPOCT [id number] 01:29:00 Test Item Value Reference Range Interpretation Comments POCT PREG (test code = Hysterectomy HX of Hysterectomy 1605) Lab Interpretation Normal (test code = 02874-5) [facility]ID NOW RAPID TESTING)2020-05-31 01:23:00 Test Item Value Reference Range Interpretation Comments SARS-CoV-2 Rapid ID NOW Not Detected Not Detected (test code = 79198-2) JASMEET (test code = JASMEET) ID NOW COVID-19 Assay is an isothermal nucleic acid amplification test intended for the qualitative detection of nucleic acid from SARS-CoV-2 viral RNA in nasopharyngeal (CYCLING INSTRUCTOR) specimens. It is used under Emergency [...] indicated. Lab Interpretation Normal (test code = 79300-6) [facility] CenterTRDIANAN [id number] 00:41:00 Test Item Value Reference Range Interpretation Comments TROPONIN I (test <0.012 See_Comment [Automated code = 4823684669) message] The system which generated this result [...] ? Lab Interpretation Normal (test code = 56298-2) [facility]. METABOLIC PANEL (18693)2020-05-31 00:32:00 Test Item Value Reference Range Interpretation Comments NA (test code = 138 mmol/L 135-145 7809790822) K (test code = 4.0 mmol/L 3.5-5 9136260907) CL (test code = 101 mmol/L 98-108 5752074643) CO2 TOTAL (test code = 27 mmol/L 23-31 5980712980) AGAP (test code = 2-16 7496314784) BUN (test code = 5 mg/dL 7-23 L 7819769232) GLUCOSE (test code = 136 mg/dL 70-110 H 3608657143) CREATININE (test code = 0.56 mg/dL 0.5-1.04 0092152768) TOTAL BILI (test code = 0.4 mg/dL 0.1-1.3 3209235181) CALCIUM (test code = 9.0 mg/dL 8.6-10.6 6194443473) T PROTEIN (test code = 8.3 g/dL 6.3-8.2 H 5490913497) ALBUMIN (test code = 4.6 g/dL 3.5-5 6122392485) ALK PHOS (test code = 93 U/L 34-122 6734209721) ALTv (test code = 21 U/L 5-35 1742-6) AST(SGOT) (test code = 25 U/L 13-40 0368374608) eGFR Calculation mL/min/1.73m2 (Non-) (test code = 0241986062) eGFR Calculation mL/min/1.73m2 () (test code = 3491355863) JASMEET (test code = JASMEET) Association of [...] tests). Lab Interpretation Abnormal (test code = 42487-8) [facility]D-[id number] 00:30:00 Test Item Value Reference Interpretation Comments Range D-DIMER (test code = See_Comment H [Autom ated 8342105838) message] The system which generated this result [...] diagnosis. Lab Interpretation Abnormal (test code = 75040-6) General acute hospital WITH [id number] 00:13:00 Test Item Value Reference Range Interpretation Comments WBC (test code = See_Comment H [Automated 5390-2) message] The system which generated this result [...] RDW-SD (test code = 40.5 fL 39-49.9 58556-9) RDW-CV (test code = 12.2 % 12-15.5 788-0) PLT (test code = See_Comment [Automated 777-3) message] The system which generated this result transmit justino reference range : 166 - 358 10*3/ ?L. The reference range was not u sed to interpret th is result as normal/abnormal . MPV (test code = 9.4 fL 9.5-12.9 L 10499-2) NRBC/100 WBC (test See_Comment [Automat ed code = 3702066248) message] The system which generated this result transmit justino reference range : 0.0 - 10.0 /100 WBCs. The reference range was not used to interpret this result as normal/abnormal . NRBC x10^3 (test code <0.01 See_Comment [Auto mated = 8354861363) message] The system which generated this result transmit justino reference range : 10*3/?L. The reference range was not used to interpret this result as normal/abnormal . GRAN MAT (NEUT) % 93.5 % (test code = 770-8) IMM GRAN % (test code 0.80 % = 6087394663) LYMPH % (test code = 4.8 % 736-9) MONO % (test code = 0.6 % 5905-5) EOS % (test code = 0.1 % 713-8) BASO % (test code = 0.2 % 706-2) GRAN MAT x10^3(ANC) 13.73 10*3/uL 1.88-7.09 H (test code = 6862428531) IMM GRAN x10^3 (test 0.12 10*3/uL 0-0.06 H code = 4936659639) LYMPH x10^3 (test code 0.71 10*3/uL 1.32-3.29 L = 731-0) MONO x10^3 (test code 0.09 10*3/uL 0.33-0.92 L = 742-7) EOS x10^3 (test code = <0.03 0.03-0.39 L 711-2) BASO x10^3 (test code 0.03 10*3/uL 0.01-0.07 = 704-7) Lab Interpretation Abnormal (test code = 65843-8) [facility]
--- NOTE | 2022-03-13 22:27 | RAD REPORT ---
EXAM DESCRIPTION: RAD - Chest Single View - 03/13/2022 10:14 pm CLINICAL HISTORY: fall Chest pain. COMPARISON: Chest Single View dated 11/07/2021; Chest Single View dated 05/01/2021; Chest Single View dated 06/02/2020; Chest Single View dated 05/27/2019 FINDINGS: Portable technique limits examination quality. Mild interstitial pulmonary edema likely present. The heart is mildly enlarged in size. No displaced fractures. IMPRESSION: Probable mild pulmonary edema.
[2022-03-13 22:37] LABS: Absolute Lymphocytes (CBC) 4.2 K/uL (0.7-4.9); Hematocrit 40.2 % (36.0-45.0); Lymphocytes % 36.8 % (15.3-44.8); MCV 93.8 fL (80-100); MPV 7.1 fL (7.6-11.3); RBC Red Blood Cell Count 4.29 M/uL (3.86-4.86)
[2022-03-13 22:49] LABS: Protime INR 1.05
[2022-03-13 23:02] LABS: Albumin 3.7 g/dL (3.4-5.0); Bilirubin Direct 0.1 mg/dL (0-0.2); Bilirubin Total 0.3 mg/dL (0.2-1.0); Magnesium 2.6 mg/dL (1.8-2.4); Potassium 3.2 mmol/L (3.5-5.1); Troponin High Sensitivity 4.7 pg/mL (<58.9)
[2022-03-14 00:48] LABS: Urine Blood Trace-intact (Negative); Urine Glucose Negative (Negative); Urine Protein Negative (Negative)
[2022-03-14] MEDS ORDERED: LEVETIRACETAM 500 MG/5 ML VIAL IV ONE (00:48)
[2022-03-14] MEDS ORDERED: NA CHLORIDE 0.9% 100 ML IV ONE (00:49)
[2022-03-14 01:15] LABS: Barbiturates NEGATIVE (NEGATIVE); Benzodiazepines NEGATIVE (NEGATIVE); Cocaine NEGATIVE (NEGATIVE); METHAMPHETAM NEGATIVE (NEGATIVE); Methadone NEGATIVE (NEGATIVE); Opiates NEGATIVE (NEGATIVE); Phencyclidine NEGATIVE (NEGATIVE); THC Cannibis NEGATIVE (NEGATIVE)
--- NOTE | 2022-03-14 03:06 | EDPHYS ---
Physician Documentation [facility] Name: Naz Boyle Age: 41 yrs Sex: Female : 1980 Arrival Date: 03/13/2022 Time: 20:59 Bed 27 Private MD: ED Physician Chloe Montiel HPI: 03/13 21:45 This 41 yrs old Female presents to ER via EMS with complaints of Probable Seizure. cp 21:45 The patient presents with decreased mental status. cp 21:45 Onset: The symptoms/episode began/occurred today, at an unknown time. cp 21:45 Possible causes: seizure, the patient has a known seizure history, reports cp patient not taking prescribed Keppra and Vimpat due to loss of insurance and inability to afford medication. The patient presents in status epilepticus, after having a possible seizure episode. Context: the seizure(s) was witnessed, by no one, the downtime is unknown, occurred at home. Associated injury: Neck: pain. reports finding patient on ground with fall nightstand on top of patient. Reports last speaking with patient at about 1630. 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 - Social history:: Smoking status: unknown. ROS: 21:50 Constitutional: Negative for fever. cp 21:50 Eyes: Negative for injury, pain, redness, and discharge. cp 21:50 Neck: Positive for pain with movement, pain at rest. 21:50 Cardiovascular: Negative for chest pain. 21:50 Respiratory: Negative for cough, shortness of breath, wheezing. 21:50 Abdomen/GI: Negative for abdominal pain, vomiting, diarrhea, constipation. 21:50 Neuro: Positive for altered mental status. 21:50 All other systems are negative. Exam: 21:55 Constitutional: The patient appears in no acute distress, non-diaphoretic, non-toxic, cp well developed, well nourished, obese. 21:55 Head/Face: Normocephalic, atraumatic. cp 21:55 Eyes: Periorbital structures: appear normal, Pupils: equal, round, and reactive to light and accomodation, Conjunctiva: normal, no exudate, no injection, Sclera: no appreciated abnormality, Lids and lashes: appear normal, bilaterally. 21:55 ENT: External ear(s): are unremarkable, Ear canal(s): are normal, clear, TM's: are normal, Nose: is normal, Mouth: Lips: moist, Oral mucosa: moist, Posterior pharynx: Airway: no evidence of obstruction, patent. 21:55 Neck: C-spine: C-collar placed in ED. 21:55 Chest/axilla: Inspection: normal, Palpation: is normal, no crepitus, no tenderness. 21:55 Cardiovascular: Rate: normal, Rhythm: regular, Edema: is not appreciated, JVD: is not appreciated. 21:55 Respiratory: the patient does not display signs of respiratory distress, Respirations: normal, no use of accessory muscles, no retractions, labored breathing, is not present, Breath sounds: are clear throughout, no decreased breath sounds, no stridor, no wheezing. 21:55 Abdomen/GI: Inspection: abdomen appears normal, Bowel sounds: active, all quadrants, Palpation: abdomen is soft and non-tender, in all quadrants. 21:55 Back: vertebral tenderness, is not appreciated. 21:55 Musculoskeletal/extremity: Exam is negative for deformity, injury. 21:55 Neuro: Mentation: responsive to pain, Motor: generalized weakness. 22:20 ECG was reviewed by the Attending Physician. cp Vital Signs: 21:20 BP 149 / 101; Pulse 60; Resp 14 S; Temp 98.1; Pulse Ox 100% on R/A; Weight 108.86 kg; ha1 Height 5 ft. 5 in. (165.10 cm); 22:00 BP 131 / 94; Pulse 71; Resp 12 S; Pulse Ox 100% on R/A; ha1 23:00 BP 127 / 93; Pulse 63; Resp 11 S; Pulse Ox 99% on R/A; ha1 03/14 00:10 BP 121 / 95; Pulse 61; Resp 12 S; Pulse Ox 99% on R/A; ha1 01:50 BP 121 / 93; Pulse 61; Resp 12 S; Pulse Ox 99% on R/A; ha1 03:00 BP 110 / 85; Pulse 59; Resp 14 S; Pulse Ox 98% on R/A; ha1 04:00 BP 107 / 86; Pulse 60; Resp 14 S; Pulse Ox 100% on R/A; ha1 03/13 21:20 Body Mass Index 39.94 (108.86 kg, 165.10 cm) ha1 MDM: 03/13 21:30 Patient medically screened. cp 03/14 03:00 Data reviewed: vital signs, nurses notes, lab test result(s), EKG, radiologic studies, cp CT scan, and as a result, I will admit patient. 03:00 Physician consultation: Cintia Chaudhari PA-C was contacted at 03:00, regarding admission, cp to the telemetry unit. patient's condition. 03/13 21:37 Order name: Basic Metabolic Panel; Complete Time: 23:28 cp 03/13 23:28 Interpretation: Normal except: K 3.2; BUN 5; GFR 56. cp 03/13 21:37 Order name: CBC with Diff; Complete Time: 23:28 cp 03/13 23:28 Interpretation: Normal except: WBC 11.30; RDW 15.5; MPV 7.1. cp 03/13 21:37 Order name: LFT's; Complete Time: 23:28 cp 03/13 21:37 Order name: Magnesium; Complete Time: 23:28 cp 03/13 21:37 Order name: NT PRO-BNP; Complete Time: 23:28 cp 03/13 21:37 Order name: PT-INR; Complete Time: 23:28 cp 03/13 21:37 Order name: Troponin HS; Complete Time: 23:28 cp 03/13 21:39 Order name: CK; Complete Time: 23:28 cp 03/13 21:39 Order name: UDS; Complete Time: 01:48 cp 03/14 01:48 Interpretation: Reviewed. cp 03/13 21:39 Order name: ETOH Level; Complete Time: 23:28 cp 03/14 00:48 Order name: Urine Dipstick-Ancillary; Complete Time: 01:04 EDMS 03/14 03:19 Order name: Urine Microscopic Only kl 03/14 03:40 Order name: SARS RAPID ha1 03/13 21:37 Order name: XRAY Chest (1 view); Complete Time: 23:28 cp 03/13 21:37 Order name: EKG; Complete Time: 21:38 cp 03/13 21:37 Order name: Cardiac monitoring; Complete Time: 22:28 cp 03/13 21:37 Order name: EKG - Nurse/Tech; Complete Time: 01:20 cp 03/13 21:37 Order name: IV Saline Lock; Complete Time: 22:28 cp 03/13 21:37 Order name: Labs collected and sent; Complete Time: 22:28 cp 03/13 21:37 Order name: O2 Per Protocol; Complete Time: 22:28 cp 03/13 21:37 Order name: O2 Sat Monitoring; Complete Time: 22:28 cp 03/13 21:39 Order name: CT Traumagram (Head C Spine CAP W Con); Complete Time: 15:01 cp 03/14 02:48 Order name: US Pelvis Complete cp 03/14 03:47 Order name: Urine Microscopic Only; Complete Time: 04:06 EDMS 03/14 04:08 Order name: SARS-COV-2 Antigen Rapid; Complete Time: 15:01 EDMS 03/14 13:02 Order name: US; Complete Time: 15:01 EDMS 03/14 00:34 Order name: Urine Dipstick-Ancillary (obtain specimen); Complete Time: 00:49 mw2 EC/19 22:20 Rate is 61 beats/min. Rhythm is regular. OH interval is normal. QRS interval is normal. cp QT interval is prolonged at 640 msec. Interpreted by me. Reviewed by me. Administered Medications: 03/14 01:11 Drug: Keppra (levETIRAcetam) 1000 mg Route: IV; Rate: calculated rate; Site: left ha1 antecubital; 02:10 Follow up: Response: No adverse reaction; IV Status: Completed infusion; IV Intake: ha1 100ml 04:18 Drug: Potassium Chloride 20 mEq Route: IV; Rate: calculated rate; Site: left ha1 antecubital; 04:19 Drug: NS 0.9% 1000 ml Route: IV; Rate: 75 ml/hr; Site: left antecubital; [facility] Disposition: 22:31 STAFF ATTESTATION: The patient's history, exam findings, diagnostics and a summary of sd2 any interventions or procedures was reviewed in detail with the ED JODIE. I confirm the diagnosis as documented by the JODIE and I agree with the care plan articulated in the disposition section with regards to our discussion of the patient's case. Chloe Montiel MD. Disposition Summary: 03/14/22 03:05 Hospitalization Ordered Hospitalization Status: Observation cp Provider: Dafne Larry cp Condition: Stable cp Problem: an acute exacerbation cp Symptoms: have improved cp Bed/Room Type: Standard cp Location: Telemetry/MedSurg (observation)(03/14/22 12:55) dw Room Assignment: 431(03/14/22 12:55) dw Diagnosis - Conversion disorder with seizures or convulsions cp Forms: - Medication Reconciliation Form cp - SBAR form cp Signatures: Dispatcher [employer] EDMS Ayana Torres, RN RN Pramod Grant PA PA cp Garcia, Cindy, RN RN Nano Rand 2 Chloe Montiel MD MD sd2 Morelia Ghotra RN RN ha1 Cintia Chaudhari PA-C PA-C sb4 Corrections: (The following items were deleted from the chart) 00:34 10 21:39 Urine Dipstick-Ancillary ordered. cp [facility] 03/14 00:34 10 21:39 Urine Test ordered. cp [facility] 03/14 01:54 01:48 Urine Dipstick-Ancillary reviewed. cp EDMS 01:54 01:48 Normal except: UBLD Trace-lysed; UPROT 2+; UESTR 2+. cp EDMS 04:15 03:05 Telemetry/MedSurg (observation) cp cg 04:15 03:05 cp cg 12:55 04:15 [facility] ER HOLD cg dw 12:55 04:15 ERHOLD- cg dw
--- NOTE | 2022-03-14 03:06 | ER ---
Nurse's Notes [facility] Name: Naz Boyle Age: 41 yrs Sex: Female : 1980 Arrival Date: 03/13/2022 Time: 20:59 Bed 27 Private MD: Diagnosis: Conversion disorder with seizures or convulsions Presentation: 03/13 21:20 Chief complaint: EMS states: family called because she was found around 8:15 pm on the ha1 floor after a seizure event. family report seeing her on her normal around PM. pt. has a history of seizure and usually acts like this after seizure. Coronavirus screen:. Ebola Screen: No symptoms or risks identified at this time. Initial Sepsis Screen: Does the patient meet any 2 criteria? No. Patient's initial sepsis screen is negative. Does the patient have a suspected source of infection? No. Patient's initial sepsis screen is negative. Risk Assessment: Do you want to hurt yourself or someone else? Patient reports no desire to harm self or others. Onset of symptoms was March 13, 2022. 21:20 Method Of Arrival: EMS: [facility] 1 21:20 Acuity: MIGUEL 3 ha1 Triage Assessment: 21:28 General: Appears comfortable, Behavior is responds to touch. ha1 22:28 Pain: Complains of pain in neck pain Pain does not radiate. Pain began 3 hours ago. 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 - Social history:: Smoking status: unknown. Screenin:30 Abuse screen: Denies threats or abuse. Denies injuries from another. Nutritional ha1 screening: No deficits noted. Tuberculosis screening: No symptoms or risk factors identified. Fall Risk Fall in past 12 months (25 points). IV access (20 points). Total Chirinos Fall Scale indicates Low Risk Score (25-44 pts). Fall prevention measures have been instituted. Side Rails Up X 2 Placed close to Nursing Station Frequent Obs/Assesments occuring Family Present and informed to notify staff if they need to leave bedside. Assessment: 20:59 General: see triage. ha1 22:00 Reassessment: Patient and/or family updated on plan of care and expected duration. Pain ha1 level reassessed. pt. responds to touch. reports feeling neck pain due to falling early at home. notified care provider in shift. neck collar put in place by care provider. 23:00 Reassessment: Patient and/or family updated on plan of care and expected duration. Pain ha1 level reassessed. Patient is alert, oriented x 3, equal unlabored respirations, skin warm/dry/pink. going to CT. 03/14 00:10 Reassessment: Patient and/or family updated on plan of care and expected duration. Pain ha1 level reassessed. Patient is alert, oriented x 3, equal unlabored respirations, skin warm/dry/pink. 01:50 Reassessment: Patient and/or family updated on plan of care and expected duration. Pain ha1 level reassessed. Patient is alert, oriented x 3, equal unlabored respirations, skin warm/dry/pink. eyes closed. at bedside. Vital Signs: 03/13 21:20 BP 149 / 101; Pulse 60; Resp 14 S; Temp 98.1; Pulse Ox 100% on R/A; Weight 108.86 kg; ha1 Height 5 ft. 5 in. (165.10 cm); 22:00 BP 131 / 94; Pulse 71; Resp 12 S; Pulse Ox 100% on R/A; ha1 23:00 BP 127 / 93; Pulse 63; Resp 11 S; Pulse Ox 99% on R/A; ha1 03/14 00:10 BP 121 / 95; Pulse 61; Resp 12 S; Pulse Ox 99% on R/A; ha1 01:50 BP 121 / 93; Pulse 61; Resp 12 S; Pulse Ox 99% on R/A; ha1 03:00 BP 110 / 85; Pulse 59; Resp 14 S; Pulse Ox 98% on R/A; ha1 04:00 BP 107 / 86; Pulse 60; Resp 14 S; Pulse Ox 100% on R/A; ha1 03/13 21:20 Body Mass Index 39.94 (108.86 kg, 165.10 cm) ha1 ED Course: 03/13 20:59 Patient arrived in ED. mw2 21:15 No provider procedures requiring assistance completed. Inserted saline lock: 20 gauge ha1 in left antecubital area, using aseptic technique. 21:20 Morelia Ghotra, RN is Primary Nurse. ha1 21:26 Triage completed. ha1 21:27 Pramod Leung PA is PHCP. cp 21:27 Chloe Montiel MD is Attending Physician. cp 22:16 XRAY Chest (1 view) In Process Unspecified. EDMS 22:28 Arm band placed on right wrist. EKG completed in triage. Results shown to MD. ha1 23:59 CT Traumagram (Head C Spine CAP W Con) In Process Unspecified. EDMS 03/14 00:49 UDS Sent. oe 03:04 Dafne Larry MD is Hospitalizing Provider. cp 04:20 Patient admitted, IV remains in place. ha1 04:21 Patient has correct armband on for positive identification. Placed in gown. Bed in low ha1 position. Call light in reach. Side rails up X2. 08:10 Primary Nurse role handed off by Morelia Ghotra, RN em1 Administered Medications: 01:11 Drug: Keppra (levETIRAcetam) 1000 mg Route: IV; Rate: calculated rate; Site: left ha1 antecubital; 02:10 Follow up: Response: No adverse reaction; IV Status: Completed infusion; IV Intake: ha1 100ml 04:18 Drug: Potassium Chloride 20 mEq Route: IV; Rate: calculated rate; Site: left ha1 antecubital; 04:19 Drug: NS 0.9% 1000 ml Route: IV; Rate: 75 ml/hr; Site: left antecubital; ha1 Medication: 04:21 VIS not applicable for this client. ha1 Intake: 02:10 IV: 100ml; Total: 100ml. ha1 Outcome: 03:05 Decision to Hospitalize by Provider. cp 04:21 Admitted to ER Hold. Please see [facility] for further documentation. ha1 04:21 Condition: stable 04:21 Discharge instructions given to patient, family, Instructed on the need for admit, Demonstrated understanding of instructions. 16:49 Patient left the ED. oe Signatures: Dispatcher [employer] EDMS Lon Morrison em1 Pramod Leung PA PA cp Espinosa, [place] oe [place], MyKena mw2 Morelia Ghotra RN RN ha1 Corrections: (The following items were deleted from the chart) 01:24 03/13 22:00 Reassessment: Patient and/or family updated on plan of care and expected ha1 duration. Pain level reassessed. pt. responds to touch. reports feeling neck pain due to falling early at home ha1
--- NOTE | 2022-03-14 03:26 | P.HP ---
Certification for Inpatient Patient admitted to: Observation With expected LOS: <2 Midnights Patient will require the following post-hospital care: None Practitioner: I am a practitioner with admitting privileges, knowledge of patient current condition, hospital course, and medical plan of care. Services: Services provided to patient in accordance with Admission requirements found in Title 42 Section 412.3 of the Code of Federal Regulations Patient History Date of Service: 03/14/22 Reason for admission: Seizure/Post-Ictal History of Present Illness: Patient is a 41-year-old female with history of previous CVA, migraines, seizure disorder, lupus, rheumatoid arthritis, and hypothyroidism who presented to the ED via EMS after being found down after seizure. Patient is prescribed keppra and lacosamide but has not taken her seizure medications in several months due to insurance reasons. Her vital signs and labs are WNL. Head CT negative. CT abdomen pelvis showed Multiseptated right ovarian cystic lesion measuring approximately 7.2 cm with punctate calcifications within it. Pelvic US pending. She was given 1000 mg of Keppra IV and slowly become more awake. Patient with baseline paresis of left lower extremity with weakness of the right lower extremity and bilateral upper extremities. Patient still slow to respond therefore ED provider wishes to admit patient for observation. Allergies No Known Allergies Allergy (Verified 05/05/21 14:48) Home Medications: Midodrine HCl 2.5 mg PO TID 01/10/20 levETIRAcetam [Keppra*] 1,500 mg PO BID 01/10/20 Lacosamide [Vimpat] 50 mg PO BID 01/11/20 Trazodone [Desyrel*] 150 mg PO BEDTIME 01/11/20 Aspirin [Aspirin EC 81 MG] 81 mg PO DAILY #30 tablet. 01/12/20 Hydroxychloroquine [Plaquenil*] 200 mg PO DAILY 05/01/21 Linaclotide [Linzess] 240 mcg PO DAILY 05/01/21 Ubrogepant [Ubrelvy] 50 mg PO QID PRN 05/01/21 Folic Acid 1 mg PO DAILY #90 tablet 05/04/21 Levothyroxine [Synthroid*] 0.2 mg PO DAILYAC #30 tab 05/04/21 Clopidogrel Bisulfate [Plavix*] 75 mg PO DAILY #30 tablet 05/18/21 Fremanezumab-Vfrm [Ajovy Autoinjector] 225 mg SQ SEECOM 11/07/21 Gabapentin 300 mg PO BID 11/07/21 Rosuvastatin [Crestor] 10 mg PO BEDTIME 11/07/21 - Past Medical/Surgical History Diabetic: No -: Seizure Disorder -: hypothyroidism -: hypotension -: lupus -: Rheumatoid arthritis -: Restless leg syndrome -: Bradycardia -: CVA -: Appendectomy -: hysterectomy -: -: Carpal tunnel surgery Psychosocial/ Personal History: patient is disabled, lives at home with her - Family History Mother -: Heart disease, Diabetes Brother -: Heart disease, Diabetes, Seizures - Social History Smoking Status: Never smoker Alcohol use: No CD- Drugs: No Caffeine use: Yes Place of Residence: Home Review of Systems is unable to be obtained Physical Examination - Physical Exam General: In no apparent distress, Other (lethargic) HEENT: Atraumatic, PERRLA, EOMI, Sclerae nonicteric Neck: Supple, 2+ carotid pulse no bruit, No LAD, Without JVD or thyroid abnormality Respiratory: Clear to auscultation bilaterally, Normal air movement Cardiovascular: Regular rate/rhythm, Normal S1 S2 Gastrointestinal: Normal bowel sounds, No tenderness Musculoskeletal: No tenderness Integumentary: No rashes Neurological: Normal tone, Sensation intact - Studies Laboratory Data (last 24 hrs) 03/13/22 22:23: PT 11.5, INR 1.05 03/13/22 22:23: WBC 11.30 H, Hgb 13.6, Hct 40.2, Plt Count 275 03/13/22 22:23: Sodium 137, Potassium 3.2 L, BUN 5 L, Creatinine 1.24, Glucose 88, Magnesium 2.6 H, Total Bilirubin 0.3, AST 22, ALT 32, Alkaline Phosphatase 74 Assessment and Plan - Problems (Diagnosis) (1) Seizure disorder Current Visit: Yes Status: Chronic (2) Medication nonadherence due to psychosocial problem Current Visit: Yes Status: Chronic (3) Rheumatoid arthritis Current Visit: Yes Status: Chronic Qualifiers: Rheumatoid arthritis location: unspecified site Rheumatoid factor presence: unspecified presence Qualified Code(s): M06.9 - Rheumatoid arthritis, unspecified (4) SLE (systemic lupus erythematosus) Current Visit: Yes Status: Chronic Qualifiers: Systemic lupus erythematosus type: unspecified Systemic lupus erythematosus organ involvement: unspecified Qualified Code(s): M32.9 - Systemic lupus erythematosus, unspecified (5) Ovarian cyst Current Visit: Yes Status: Acute Qualifiers: Laterality: right Qualified Code(s): N83.201 - Unspecified ovarian cyst, right side - Plan -Continue IV Keppra -Seizure precautions and neuro checks -Dr. Morton consulted -Physical therapy consult -Urine dip +LE. Pend micro for possible antibiotics -Pend pelvic US. Patient denies any pelvic/abdominal pain. -Gentle IV hydration -Reconcile other home medications -Lovenox for VTE ppx -Full code Of note, patient has been admitted for a very similar episode 4 months ago- prolonged postictal state after noncompliance with seizure medications. Brain MRI was negative. Patient declined further workup and left AMA. Discharge Plan: Home Plan to discharge in: 24 Hours - Advance Directives Does patient have a Living Will: No Does patient have a Durable POA for Healthcare: No - Code Status/Comfort Care Code Status Assessed: Yes (Full) Critical Care: No Time Spent Managing Pts Care (In Minutes): 50
[2022-03-14] MEDS ORDERED: NA CHLORIDE 0.9% 250 ML ONE (03:33)
[2022-03-14] MEDS ORDERED: NA CHLORIDE 0.9% 1,000 ML ONE (03:33)
[2022-03-14] MEDS ORDERED: KCL 20 MEQ/100 mL IVPB 100 ML IV ONE (03:34)
[2022-03-14 03:47] LABS: Urine Bacteria <20 /HPF (<20); Urine Mucus Slight /HPF (None Seen); Urine RBC <5 /HPF (None Seen)
[2022-03-14 04:07] LABS: SARS-CoV-2 Antigen Rapid Res Negative (Negative)
[2022-03-14] MEDS ORDERED: ACETAMINOPHEN 500 MG TAB PO PRN (04:27)
[2022-03-14] MEDS: NA CHLORIDE 0.9% 1,000 ML IV SCH ×2 (04:27→17:11)
[2022-03-14 04:44] VITALS: BMI 37.5
[2022-03-14] MEDS ORDERED: INFLUENZA VACCINE (for 6+ mo) 0.5 ML DOSE IMVAC ONE (08:00)
[2022-03-14] MEDS ORDERED: ENOXAPARIN 40 MG/0.4 ML SQ ONE (08:58)
[2022-03-14] MEDS: levETIRAcetam 1,500 MG in NA CHLORIDE 0.9% 100 ML IV SCH ×2 (09:00→21:01)
--- NOTE | 2022-03-14 09:18 | RAD REPORT ---
EXAM DESCRIPTION: CT - Head C Spine Cap Min Murray - 03/13/2022 11:57 pm CLINICAL HISTORY: The patient is 41 years old and is Female; FALL TECHNIQUE: Axial computed tomography images of the head/brain and cervical spine without intravenous contrast. Sagittal and coronal reformatted images were created and reviewed. This CT exam was pe rformed using one or more of the following dose reduction techniques: automated exposure control, a djustment of the mA and/or kV according to patient size, and/or use of iterative reconstruction techn ique. DLP: 3546 mGy*cm COMPARISON: None. FINDINGS: BRAIN: Unremarkable. No hemorrhage. No significant white matter disease. No edema. VENTRICLES: Unremarkable. No ventriculomegaly. SKULL: No acute fracture. SINUSES: Unremarkable as visualized. No acute sinusitis. MASTOID AIR CELLS: Unremarkable as visualized. No mastoid effusion. VERTEBRAE: Straightening of cervical lordosis. No acute fracture. DISCS/SPINAL CANAL/NEURAL FORAMINA: No acute findings. No spinal canal stenosis. SOFT TISSUES: Unremarkable. IMPRESSION: 1. No acute intracranial abnormality. 2. No acute cervical spine fracture or subluxation. 3. Straightening of cervical lordosis. Findings may be due to muscle spasm. EXAM DESCRIPTION: CT Chest, Abdomen and Pelvis With Intravenous Contrast CLINICAL HISTORY: The patient is 41 years old and is Female; FALL TECHNIQUE: Axial computed tomography images of the chest, abdomen and pelvis with intravenous contra st. Sagittal and coronal reformatted images were created and reviewed. This CT exam was performed using one or more of the following dose reduction techniques: automated exposure control, adjustme nt of the mA and/or kV according to patient size, and/or use of iterative reconstruction technique. DLP: 3546 mGy*cm COMPARISON: None. FINDINGS: CHEST: LUNGS: Unremarkable. No mass. No consolidation. PLEURAL SPACE: Unremarkable. No significant effusion. No pneumothorax. HEART: Unremarkable. No cardiomegaly. No significant pericardial effusion. No significant cor onary artery calcifications. ABDOMEN: LIVER: Unremarkable. No mass. GALLBLADDER AND BILE DUCTS: Prior cholecystectomy. No ductal dilation. PANCREAS: Unremarkable. No ductal dilation. No mass. SPLEEN: Unremarkable. No splenomegaly. ADRENALS: Unremarkable. No mass. KIDNEYS AND URETERS: Unremarkable. No hydronephrosis. No solid mass. STOMACH AND BOWEL: Unremarkable. No obstruction. No mucosal thickening. PELVIS: APPENDIX: Prior appendectomy. BLADDER: Unremarkable. No mass. REPRODUCTIVE: Multiseptated right ovarian cystic lesion measuring approximately 7.2 cm with punctat e calcifications within it. Prior hysterectomy. CHEST, ABDOMEN and PELVIS: INTRAPERITONEAL SPACE: Unremarkable. No significant fluid collection. No free air. BONES/JOINTS: Unremarkable. No acute fracture. No dislocation. SOFT TISSUES: Fat-containing umbilical hernia. VASCULATURE: Unremarkable. No aortic aneurysm. LYMPH NODES: Unremarkable. No enlarged lymph nodes. IMPRESSION: 1. No acute intrathoracic, abdominal or pelvic abnormality. 2. Multiseptated right ovarian cystic lesion measuring approximately 7.2 cm with punctate calcificat ions within it. Recommend prompt follow-up with pelvic US. Reference: J Am Sadia Radiol 2013;10:675-681. Electronically signed by: Santiago Gregory DO 03/14/2022 12:44 AM CDT Due to temporary technical issues with the PACS/Fluency reporting system, reports are being signed by the in house radiologists without review as a courtesy to insure prompt reporting. The interpreting radiologist is fully responsible for the content of the report.
[2022-03-14] MEDS: ENOXAPARIN 40 MG/0.4 ML SQ SCH (09:33)
--- NOTE | 2022-03-14 13:02 | RAD REPORT ---
EXAM DESCRIPTION: US - Pelvis Complete - 03/14/2022 3:19 am CLINICAL HISTORY: The patient is 41 years old and is Female; PAIN TECHNIQUE: Real-time complete transabdominal pelvic ultrasound with image documentation. COMPARISON: No relevant prior studies available. FINDINGS: UTERUS/CERVIX: The uterus is surgically absent. RIGHT OVARY: The right ovary measures 2.8 x 4.5 x 2.4 cm. Normal arterial and venous color Dopple r and spectral waveform is present. Normal blood flow. LEFT OVARY: The left ovary is not visualized secondary to bowel gas. FREE FLUID: No free fluid. BLADDER: Unremarkable as visualized. Wall is normal thickness for degree of distention. IMPRESSION: 1. Prior hysterectomy. 2. Normal sonographic appearance of the right ovary. Left ovary not visualized secondary to bowel g as. Electronically signed by: Lelia Shah MD 03/14/2022 4:27 AM CDT Due to temporary technical issues with the PACS/Fluency reporting system, reports are being signed by the in house radiologists without review as a courtesy to insure prompt reporting. The interpreting radiologist is fully responsible for the content of the report.
[2022-03-14] MEDS ORDERED: ACETAMINOPHEN 500 MG TAB ONE (15:35)
--- NOTE | 2022-03-14 16:14 | EKG ---
Test Date: 2022-03-13 Test Time: 22:13:56 Commodity Director: PARMINDER MEASUREMENT RESULTS: Intervals: Rate: 61 WY: 146 QRSD: 82 QT: 640 QTc: 644 [place]: P: 49 WY: 146 QRS: 96 T: 248 INTERPRETIVE STATEMENTS: Normal sinus rhythm Rightward axis Nonspecific T wave abnormality Prolonged QT Abnormal ECG Compared to ECG 11/07/2021 16:52:48 Right-axis deviation now present T-wave abnormality now present Prolonged QT interval now present Fusion complex(es) no longer present Myocardial infarct finding no longer present ST (T wave) deviation no longer present Possible ischemia no longer present Electronically Signed On 03-14-22 16:13:33 CDT by Severiano Cohen
--- NOTE | 2022-03-14 16:53 | P.PN ---
Date of Service: 03/14/22 Patient is well-known to me from prior admission. She has a history of pseudoseizures. She also has numerous medical illnesses including multiple rheumatologic issues. She is not taking any medications as she states she has no health insurance. She request pain medications and anxiolytics to alleviate her seizures. On her last admission family got upset because she was not getting the treatment they felt she needed. She suddenly became paralyzed. She was not able to move her arms and her legs. Spoke with Neurology and we were monitoring her neuro status because of incongruence of her physical/neuro exam and her subjective compliants. The family got frustrated/angry because they stated we were not doing anything for her. Patient wanted to leave but because of her compliants of paralysis I did not feel comfortable with discharging her. decided to sign her out AMA. Patient was able to get herself out of bed and into a wheelchair. Her "paralysis" resolved. She signed herself out AGAINST MEDICAL ADVICE and left the hospital with her on her last admission. She once again is having seizures-continue antiepileptics and order EEG.
[2022-03-14] MEDS: clonazePAM 1 MG TAB PO SCH ×2 (21:00→21:02)
[2022-03-14] MEDS: MORPHINE 2 MG/ML SYR IV PRN (21:02)
[2022-03-15 06:09] LABS: Absolute Lymphocytes (CBC) 3.3 K/uL (0.7-4.9); Hematocrit 34.2 % (36.0-45.0); Lymphocytes % 48.5 % (15.3-44.8); MCV 93.9 fL (80-100); MPV 7.2 fL (7.6-11.3); RBC Red Blood Cell Count 3.64 M/uL (3.86-4.86)
[2022-03-15 06:26] LABS: Magnesium 2.4 mg/dL (1.8-2.4); Phosphorus 3.2 mg/dL (2.5-4.9); Potassium 3.4 mmol/L (3.5-5.1)
[2022-03-15] MEDS: NA CHLORIDE 0.9% 1,000 ML IV SCH ×2 (07:12→21:06)
[2022-03-15 07:32] LABS: Blood Morphology Comment NOT SEEN (NOT SEEN); Platelet Estimate ADEQ
[2022-03-15] MEDS ORDERED: POTASSIUM 25 MEQ EFFERV TAB PO ONE (09:00)
[2022-03-15] MEDS: clonazePAM 1 MG TAB PO SCH ×3 (09:48→21:07)
[2022-03-15] MEDS: ENOXAPARIN 40 MG/0.4 ML SQ SCH (09:48)
[2022-03-15] MEDS: levETIRAcetam 1,500 MG in NA CHLORIDE 0.9% 100 ML IV SCH ×2 (09:49→21:06)
[2022-03-15] MEDS: MORPHINE 2 MG/ML SYR IV PRN ×2 (14:25→21:07)
[2022-03-15] MEDS ORDERED: HYDROCODONE/APAP 7.5/325 MG TAB PO PRN (15:26)
--- NOTE | 2022-03-15 17:23 | CON ---
Reason For Consultation: Consultation called because of multiple seizures. History Of Present Illness: Ms. 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 Her imaging at [facility] after she was brought in including a CT scan that was negativ e for any acute ischemic or hemorrhagic change. Her labs including complete blood count, liver funct ion studies, and renal function studies were unremarkable. Imaging the pelvic region showed ovarian cysts measuring 7.2 cm. At [facility], she was loaded with Keppra 1000 mg and placed on 500 mg twice daily. Her baseline maintenance medications prior to running out of medications included K eppra 1500 mg twice daily and Vimpat, lacosamide 50 mg twice daily. She was also on gabapentin 100 m g 3 times daily for neuropathic pain. Past Medical History: As noted including restless legs syndrome and bradycardia. Past Surgical History: Appendectomy, hysterectomy, , carpal tunnel surgery. Allergies: NO KNOWN DRUG ALLERGIES. Medications At Home: 2.5 mg 3 times a day, Keppra 1500 mg twice daily, Vimpat 50 mg twice daily, trazodone 150 mg at bedtime, aspirin 81 mg daily, Plaquenil 200 mg daily, 240 mg d aily, Ubrelvy 50 mg daily as needed for headaches, folic acid 1 mg daily. Levothyroxine 0.2 mg daily , Plavix 75 mg daily, Ajovy autoinjector 225 mg subcutaneously monthly, gabapentin 300 mg twice daily , Crestor 10 mg at bedtime. Family History: Heart disease, diabetes in mother along with seizures in her brother. Social History: No recent alcohol, tobacco, or IV drug use. Review of Systems: As noted, she reports multiple seizures. She also has very poor dentition and otherwise no recent fe vers or chills, myalgias, arthralgias, rash, weight change. No psychiatric issues, gastrointestinal, or genitourinary issues. Physical Examination: Vital Signs: Blood pressure , temperature 97.4, oxygen saturation 94% to 100% on room air. Weight 240 pounds, height 5 feet 7 inches, BMI 37.6. General: Ms. Boyle is resting in bed. She has not had any recent seizures since being hospitalized, overnight especially. She is alert and oriented to situation. Actually, she is somewhat sleepy, bu t easily arousable and is oriented to person, place, situation. Follows commands appropriately. Lungs: General examination reveals clear lungs. Abdomen: Soft. Extremities: Show no clubbing or edema. HEENT: Note, she has very poor dentition, missing several teeth mouth. Neurological: Alert, oriented once aroused and following commands appropriately. Face is symmetric. She has recovered. No significant residual loss from her small right frontal lacunar infarct, whic h occurred in 2019. She does not have any focal face, face, arm, or leg numbness, weakness. Coordin ation is intact in upper and lower extremities. Laboratory Studies: White blood cell count 6.9, hemoglobin 11.8. Her creatinine is 0.95, on admissi on it was 1.24; sodium was normal, and it remains normal 138; potassium was low at 3.2, now 3.4; calc ium was 8.6 at admission, now 8.4. Magnesium 2.4. Liver function studies normal. Urinalysis: Trac e blood, otherwise unremarkable. Urine toxicology screen is negative. COVID testing is negative. C hest x-ray shows mild interstitial pulmonary edema is likely. No mention of pneumonia. Assessment: Ms. Boyle is a 41-year-old patient with history of stroke, localization-related complex partial seizures along with history of pseudoseizures. She has multiple comorbid conditions includin g hypothyroidism, hypertension, lupus, rheumatoid arthritis, restless legs syndrome. Plan: 1.Keppra should be increased back to 1500 mg twice daily. May restart Vimpat 50 mg twice daily. 2.She has comorbid conditions as mentioned and they are managed by continuing on current regimen of medication. She may be discharged and follow up in Dr. Morton's clinic in 1 month. DEYSI/LIDAY Voice ID: [id number] Report ID: [id number]
[2022-03-15 18:50] VITALS: O2SAT 96
[2022-03-16 04:37] LABS: Absolute Lymphocytes (CBC) 2.9 K/uL (0.7-4.9); Hematocrit 32.8 % (36.0-45.0); Lymphocytes % 50.9 % (15.3-44.8); MCV 93.6 fL (80-100); MPV 7.6 fL (7.6-11.3); RBC Red Blood Cell Count 3.51 M/uL (3.86-4.86)
[2022-03-16 04:53] LABS: Magnesium 2.2 mg/dL (1.8-2.4); Phosphorus 3.1 mg/dL (2.5-4.9)
[2022-03-16 04:54] LABS: BUN Blood Urea Nitrogen 7 mg/dL (7-18); Bicarbonate 26 mmol/L (21-32); Glomerular Filtration Rate 77 ml/min (=/>90); Glucose Level 80 mg/dL (74-106); Potassium 3.4 mmol/L (3.5-5.1); Sodium Level 138 mmol/L (136-145)
[2022-03-16 04:59] LABS: C-Reactive Protein < 2.90 mg/L (<3.00)
[2022-03-16] MEDS ORDERED: POTASSIUM CL SA 10 MEQ TAB PO ONE (09:00)
[2022-03-16] MEDS: NA CHLORIDE 0.9% 1,000 ML IV SCH (09:47)
[2022-03-16] MEDS: ENOXAPARIN 40 MG/0.4 ML SQ SCH (09:48)
[2022-03-16] MEDS: clonazePAM 1 MG TAB PO SCH ×2 (09:48→14:00)
[2022-03-16] MEDS: levETIRAcetam 1,500 MG in NA CHLORIDE 0.9% 100 ML IV SCH (09:49)
[2022-03-16 16:53] VITALS: BP 121/79; TEMP 97
--- NOTE | 2022-03-16 21:11 | P.PN ---
Subjective Date of Service: 03/15/22 Subjective: No new changes, No C/O voiced, Improving Review of Systems 10-point ROS is otherwise unremarkable Physical Examination - Vital Signs Temperature: 97.0 F Blood Pressure: 121/79 Pulse: 62 Respirations: 16 Pulse Ox (%): 98 - Physical Exam General: Alert, In no apparent distress, Oriented x3 Respiratory: Clear to auscultation bilaterally, Normal air movement Cardiovascular: Regular rate/rhythm, Normal S1 S2, No murmurs Gastrointestinal: Normal bowel sounds, Soft and benign, Non-distended, No tenderness Musculoskeletal: No clubbing, No swelling, No tenderness Neurological: Sensation intact, Cranial nerves 3-12 intact, Abnormal strength - Studies Medications List Reviewed: Yes Assessment & Plan - Problems (Diagnosis) (1) Conversion disorder Status: Acute (2) Migraine headache with aura Status: Acute (3) Rheumatoid arthritis Status: Chronic Qualifiers: Rheumatoid arthritis location: unspecified site Rheumatoid factor presence: unspecified presence Qualified Code(s): M06.9 - Rheumatoid arthritis, unspecified (4) SLE (systemic lupus erythematosus) Status: Chronic Qualifiers: Systemic lupus erythematosus type: unspecified Systemic lupus erythematosus organ involvement: unspecified Qualified Code(s): M32.9 - Systemic lupus erythematosus, unspecified (5) Seizure disorder Status: Chronic - Plan plan: 1. Continue with anxiolytics 2. Pain control 3. patient is not on any immunosuppressants for her autoimmune disease. She is not on Synthroid for thyroid disease because she is unable to afford her medication. Her social situation is really adversely affecting her quality of life. Unfortunately, this does not appear to be getting much better. Apparently her makes too much for her to get disability or Medicaid. she does not have enough work history to qualify for Medicare either. She is nonambulatory at this time and only gets into a wheelchair according to her . Unfortunately her prognosis long-term is poor if she is bedbound. community outreach worker has been consulted to try to assist with indigent programs in the area. Discharge Plan: Home Plan to discharge in: 48 Hours - Advance Directives Does patient have a Living Will: No Does patient have a Durable POA for Healthcare: No - Code Status/Comfort Care Code Status Assessed: Yes Code Status: Full Code Critical Care: No Time Spent Managing PTS Care (In Minutes): 45
--- NOTE | 2022-03-16 21:13 | P.DS ---
Discharge Date: 03/16/22 Disposition: ROUTINE DISCHARGE Discharge Condition: GOOD Reason for Admission: Seizure/Post-Ictal - Problems (1) Conversion disorder Status: Acute (2) Migraine headache with aura Status: Acute (3) Rheumatoid arthritis Status: Chronic Qualifiers: Rheumatoid arthritis location: unspecified site Rheumatoid factor presence: unspecified presence Qualified Code(s): M06.9 - Rheumatoid arthritis, unspecified (4) SLE (systemic lupus erythematosus) Status: Chronic Qualifiers: Systemic lupus erythematosus type: unspecified Systemic lupus erythematosus organ involvement: unspecified Qualified Code(s): M32.9 - Systemic lupus erythematosus, unspecified (5) Seizure disorder Status: Chronic Brief History of Present Illness: Patient is a 41-year-old female with history of previous CVA, migraines, seizure disorder, lupus, rheumatoid arthritis, and hypothyroidism who presented to the ED via EMS after being found down after seizure. Patient is prescribed keppra and lacosamide but has not taken her seizure medications in several months due to insurance reasons. Her vital signs and labs are WNL. Head CT negative. CT abdomen pelvis showed Multiseptated right ovarian cystic lesion measuring approximately 7.2 cm with punctate calcifications within it. Pelvic US pending. She was given 1000 mg of Keppra IV and slowly become more awake. Patient with baseline paresis of left lower extremity with weakness of the right lower extremity and bilateral upper extremities. Patient still slow to respond therefore ED provider wishes to admit patient for observation. Hospital Course: Had a long discussion with the family and unfortunately she her social situation does not appear to be changing any time soon. Plan of discharge with outpatient follow-up with a primary care provider that can provide indigent care. Apparently sr. social media & mobile manager has given them information regarding follow-up appointments. They do not have insurance and they do not have the ability to pay for their medications. Will plan to discharge with outpatient follow-up. Vital Signs/Physical Exam: Temp Pulse Resp BP Pulse Ox 97.0 F 62 16 121/79 98 03/16/22 21:10 03/16/22 21:10 03/16/22 21:10 03/16/22 21:10 03/16/22 21:10 General: Alert, In no apparent distress, Oriented x3 Laboratory Data at Discharge: WBC 5.70 K/uL (4.3-10.9) 03/16/22 03:51 Hgb 11.4 g/dL (12.0-15.0) L 03/16/22 03:51 Hct 32.8 % (36.0-45.0) L 03/16/22 03:51 Plt Count 214 K/uL (152-406) 03/16/22 03:51 PT 11.5 SECONDS (9.5-12.5) 03/13/22 22:23 INR 1.05 03/13/22 22:23 Sodium 138 mmol/L (136-145) 03/16/22 03:51 Potassium 3.4 mmol/L (3.5-5.1) L 03/16/22 03:51 BUN 7 mg/dL (7-18) 03/16/22 03:51 Creatinine 0.95 mg/dL (0.55-1.3) 03/16/22 03:51 Glucose 80 mg/dL (74-106) 03/16/22 03:51 Phosphorus 3.1 mg/dL (2.5-4.9) 03/16/22 03:51 Magnesium 2.2 mg/dL (1.8-2.4) 03/16/22 03:51 Total Bilirubin 0.3 mg/dL (0.2-1.0) 03/13/22 22:23 AST 22 U/L (15-37) 03/13/22 22:23 ALT 32 U/L (12-78) 03/13/22 22:23 Alkaline Phosphatase 74 U/L (45-117) 03/13/22 22:23 Home Medications: Midodrine HCl 2.5 mg PO TID 01/10/20 Trazodone [Desyrel*] 150 mg PO BEDTIME 01/11/20 Aspirin [Aspirin EC 81 MG] 81 mg PO DAILY #30 tablet. 01/12/20 Hydroxychloroquine [Plaquenil*] 200 mg PO DAILY 05/01/21 Folic Acid 1 mg PO DAILY #90 tablet 05/04/21 Clopidogrel Bisulfate [Plavix*] 75 mg PO DAILY #30 tablet 05/18/21 Gabapentin 300 mg PO DAILY 11/07/21 Rosuvastatin [Crestor*] 10 mg PO BEDTIME 11/07/21 Cefdinir [Cefdinir*] 300 mg PO BID #10 cap 03/16/22 Hydrocodone 7.5/APAP 325 [[place] 7.5/325 mg*] 1 tab PO Q6H PRN #30 tab 03/16/22 Lacosamide [Vimpat] 50 mg PO BID #60 tablet 03/16/22 Levetiracetam [Keppra] 1,000 mg PO BID #90 tab 03/16/22 Levothyroxine [Synthroid*] 0.2 mg PO DAILYAC #30 tab 03/16/22 Oxybutynin Chloride [Ditropan] 5 mg PO BID #60 tab 03/16/22 clonazePAM [Klonopin*] 1 mg PO TID #60 tab 03/16/22 New Medications: Cefdinir [Cefdinir*] 300 mg PO BID #10 cap Oxybutynin Chloride [Ditropan] 5 mg PO BID #60 tab Levetiracetam [Keppra] 1,000 mg PO BID #90 tab clonazePAM [Klonopin*] 1 mg PO TID #60 tab Hydrocodone 7.5/APAP 325 [[place] 7.5/325 mg*] 1 tab PO Q6H PRN #30 tab PRN Reason: Pain Scale 5-7 (Moderate) Levothyroxine [Synthroid*] 0.2 mg PO DAILYAC #30 tab Lacosamide [Vimpat] 50 mg PO BID #60 tablet Physician Discharge Instructions: PROBLEM: Altered Mental Status, Post Ictal seizures GOAL: Clear understanding of disease process INSTRUCTIONS: -Discontinue IV and Discharge home -Follow-up with Primary Care Provider in 1 to 2 weeks -Follow-up with Neurology in 1 to 2 weeks -Please call Dr. Larry at [phone] if any questions regarding hospital stay -Please call nursing station at [phone] if any nursing or medication questions -Return to the emergency room if symptoms worsen Diet: [place] Heart Diet Activity: Fall precautions, activity as tolerated Discharge with russell catheter with with leg bag Diet: AHA Activity: Fall precautions Followup: Myron Morton MD [ASSOCIATE-ACTIVE - CAN ADMIT] - 1-2 Weeks NONE,NONE [Primary Care Provider] - Time spent managing pt's care (in minutes): 35
[2022-03-18 04:33] LABS: Rheumatoid Factor NEG (NEG)
--- NOTE | 2022-03-18 07:49 | EEG ---
CHART: [id number] TEST ID#: [id number] DATE OF STUDY: 03-14-22 THE EEG WAS RECORDED [place] IN THE EMERGENCY ROOM ON A 17 CHANNEL MACHINE. ELECTRODES WERE APPLIED IN THE USUAL MANNER USING THE INTERNATIONAL 10-20 SYSTEM. THE WAKING BACKGROUND RHYTHM IN THIS RECORD CONSISTS OF FAIRLY WELL DEVELOPED AND FAIRLY WELL ORGANIZED WAVES OF 10 HZ., MAXIMAL IN THIS POSTERIOR HEAD REGIONS WHICH ATTENUATE NORMALLY WITH EYE OPENING. LOW-VOLTAGE 18-22 HZ ACTIVITY IS EXPRESSED IN THE FRONTAL REGIONS. THERE ARE NO FOCAL OR LATERALIZING FEATURES. NO EPILEPTIFORM ACTIVITY APPEARS. SLEEP DID NOT OCCUR. HYPERVENTILATION WAS NOT PERFORMED. PHOTIC STIMULATION PRODUCED FAIR DRIVING BILATERALLY. IMPRESSION: NORMAL EEG FOR THE AGE OF THE PATIENT IN [place].
== END 2022-03-16 18:30 | disposition home or self-care (01) | DRG 880 ==
LOC: ER 20:52 → ERHOLD 03-14 03:11 → OBSVTOIN 03-14 10:38 → ERHOLD 03-14 12:52 → 4TH 03-14 14:19
PROVIDERS: ADMIT Hospitalist; ATTEND Hospitalist
DX: F44.5 Conversion disorder with seizures or convulsions (principal); F44.4 Conversion disorder with motor symptom or deficit; M32.9 Systemic lupus erythematosus, unspecified; G43.109 Migraine with aura, not intractable, without status migrainosus; M06.9 Rheumatoid arthritis, unspecified; E03.9 Hypothyroidism, unspecified; N83.201 Unspecified ovarian cyst, right side; G25.81 Restless legs syndrome; R00.1 Bradycardia, unspecified; Z91.190 Patient's noncompliance with other medical treatment and regimen due to financial hardship; Z20.822 Contact with and (suspected) exposure to COVID-19; Z86.73 Personal history of transient ischemic attack (TIA), and cerebral infarction without residual deficits; Z79.82 Long term (current) use of aspirin; Z79.02 Long term (current) use of antithrombotics/antiplatelets; Z79.899 Other long term (current) drug therapy; Z90.710 Acquired absence of both cervix and uterus; Z82.0 Family history of epilepsy and other diseases of the nervous system; Z82.49 Family history of ischemic heart disease and other diseases of the circulatory system; Z83.3 Family history of diabetes mellitus
CPT/HCPCS: 36415; 70450; 71045; 71260; 72125; 74177; 76856; 80048; 80076; 80307; 80320; 81003; 81015; 82550; 83735; 83880; 84100; 84439; 84443; 84484; 85025; 85610; 85652; 86038; 86140; 86200; 86225; 86430; 87811; 93005; 95816; 96365; 96375; 99285; G0378; J1650; J1953; J2270; J3480; J7030; J7050; Q9967

== ENCOUNTER 2022-06-17 14:15 | Emergency (ER) | payer SELFPAY ==
--- OUTSIDE RECORDS SUMMARY | 2022-06-17 14:21 | XMS REPORT | Continuity of Care Document ---
:1980 Author Organization [facility] t Address [address] [place] [address] Care Team Providers Name Role Phone Dereck Hinds MD Primary Care Physician Mariposa Davidson Attending Clinician Doctor Unassigned, [place] Attending Clinician Unavailable GENAI MARIA Attending Clinician Unavailable Genia Durant Attending Clinician DERECK HINDS Attending Clinician Unavailable Janene Raymond Attending Clinician GENIA MARIA Admitting Clinician Unavailable JANENE NAVAS Admitting Clinician Unavailable Payers Payer Name Policy Type Policy Number Effective Date Expiration Date S ource Problems Condition Condition Condition Status Onset Resolution Last Treating Co mments Source Name Details Category Date Date Treatment Clinician Date No known No known Disease Unive rs active active ity of problems problems [facility] Allergies, Adverse Reactions, Alerts Allergy Allergy Status Severity Reaction(s) Onset Inactive Treating Comm ents Source Name Type Date Date Clinician PREDNISO DRUG Active Hives Univers NE INGREDI 05-31 ity of 00:00: [place] 00 Medical Branch Predniso Propensi Active Hives Univer s ne ty to 05-31 ity of adverse 00:00: [place] reaction 00 Medical s Branch predniSO Propensi Active 2021-05 NE - ty to 0-28 Oral adverse 00:00: reaction 00 to drug Predniso Propensi Active Rash "When I Metho di ne ty to 4-[address] adverse 00:00: 20mg Hospita reaction 00 daily I l s to broke out drug in a rash". NO KNOWN Drug Active [facility] ALLERGIE Class ity of [facility] [place] [facility] Social History Social Habit Start Date Stop Date Quantity Comments Source History of Smokes tobacco Mandaeism tobacco use daily Hospital Exposure to Not sure University of SARS-CoV-2 [place] [facility] (event) Branch History SDOH [facility]ae[facility] Alcohol Std Hospital Drinks History SDOH [facility] Alcohol Binge Hospital Tobacco use and 2020-09-07 2020-09-07 Smokeless tobacco Me [facility]od[facility] exposure 00:00:00 00:00:00 non-user Hospital Alcohol intake 2020-09-07 2020-09-07 Lifetime Mandaeism 00:00:00 00:00:00 non-drinker Hospital (finding) History SDOH 2020-09-07 2020-09-07 1 [place]ae[place] Alcohol Frequency 00:00:00 00:00:00 Hospita l Sex Assigned At [birth year] Mandaeism 00:00:00 00:00:00 Hospital Smoking Status Start Date Stop Date Source Smokes tobacco daily 2020-09-07 00:00[facility] Tobacco smoking consumption [facility] Medications Ordered Filled Start Stop Current Ordering Indication Dosage Frequency Signature Comments Components Source Medication Medication Date Date Medication? Clinician (SIG) Name Name TAKE ONE No (1) 1-16 TABLET(S) 00:00: BY MOUTH 00 THREE TIMES A DAY. TAKE 1 No TABLET 1-16 DAILY. 00:00: 00 levETIRAcet 2022- No 1500mg 1,500 mg, Univers am (KEPPRA) 05-31 IV ity of in NACL 23:00: 22:36 Piggyback, [place] as (ISO-OS) 00 :00 ONCE, 1 Medical 1,500 dose, On Branch mg/100 mL 05/31/22 RTU at 1700, Administer over 15 Minutes, 100 mL iopamidol 2022- No [id number] 75mL 75 mL, Univers (ISOVUE 1-06 01-06 Intravenou ity o f 370-500 mL) 23:00: 21:51 s, ONCE, 1 [place] injection 00 :00 dose, On Medica l 75 mL Fri05/31/22 Branch at 1700, Routine NaCl 0.9% 2022-0 Yes 5mL 5 mL, Slow Un nunu (NS) 1-06 IV Push, ity of injection 5 21:31: PRN - [place] [facility] NS, Branch Starting on Fri05/31/22 at 1531, Until Discontinu ed, 10 mL cefdinir 3-0 Yes [id number] 300mg Take 1 U nivers 300 mg 1-06 capsule by ity of capsule 00:00: mouth [place] [address] every 12 Medical (twelve) Branch hours. lacosamide 3-0 Yes [id number] 50mg Take 1 U nivers 50 mg 1-06 tablet by ity of tablet 00:00: mouth in [place] [address] the Medical morning Branch and 1 tablet in the evening. levETIRAcet 2023-0 Yes [id number] 1000mg Take 1 Univers am 1,000 mg 1-06 tablet by ity of tablet 00:00: mouth in [place] [address] the Medical morning Branch and 1 tablet in the evening. levETIRAcet 2023-0 Yes [id number] 500mg Take 1 Univers am 500 mg 1-06 tablet by ity o f tablet 00:00: mouth in [place] [address] the Medical morning Branch and 1 tablet in the evening. cefdinir 2023-0 Yes [id number] 300mg Take 1 U nivers 300 mg 1-06 capsule by ity of capsule 00:00: mouth [place] 00 every 12 Medical (twelve) Branch hours. lacosamide 2023-0 Yes [id number] 50mg Take 1 U nivers 50 mg 1-06 tablet by ity of tablet 00:00: mouth in [place] [address] the Medical morning Branch and 1 tablet in the evening. levETIRAcet 2023-0 Yes [id number] 1000mg Take 1 Univers am 1,000 mg 1-06 tablet by ity of tablet 00:00: mouth in [place] [address] the Medical morning Branch and 1 tablet in the evening. levETIRAcet 2023-0 Yes [id number] 500mg Take 1 Univers am 500 mg 1-06 tablet by ity o f tablet 00:00: mouth in [place] 00 the Medical morning Branch and 1 tablet in the evening. lacosamide 2022- Yes [id number] 50mg Take 1 Univers 50 mg 05-31 tablet by ity of tablet 00:00: 04:59 mouth in [place] 00 :00 the [facility] morning Branch and 1 tablet in the evening. Do all this for 90 days. levETIRAcet 2022- Yes [id number] 1000mg Take 1 Univers am 1,000 mg 05-31 tablet by it y of tablet 00:00: 04:59 mouth in [place] 00 :00 the [facility] morning Branch and 1 tablet in the evening. Do all this for 90 days. levETIRAcet 2022- Yes [id number] 500mg Take 1 Univers am 500 mg 05-31 tablet by ity of tablet 00:00: 04:59 mouth in [place] 00 :00 the [facility] Branch and 1 tablet in the evening. Do all this for 90 days. cefdinir 2022- Yes [id number] 300mg Take 1 Univers 300 mg 05-31 capsule by ity of capsule 00:00: 05:59 mouth [place] 00 :00 every 12 Medical (twelve) Branch hours for 10 days. TAKE 1 2021-1 No TABLET 1-04 DAILY. 00:00: 00 TAKE 1 2021-1 No TABLET 1-04 DAILY. 00:00: 00 TAKE 1 2021-1 No TABLET 1-04 DAILY. 00:00: 00 TAKE 1 2021-1 No TABLET 1-04 DAILY. 00:00: 00 1 tab oral 2022-1 No every 6 0-28 hours 00:00: 00 TAKE 1 2-1 No TABLET 0-28 DAILY. 00:00: 00 1 tab oral 2022-1 No every 6 0-28 hours 00:00: 00 TAKE 1 2-1 No TABLET 0-28 DAILY. 00:00: 00 1 tab oral 2022-1 No every 6 0-28 hours 00:00: 00 1 tab oral 2022-1 No every 6 0-28 hours 00:00: 00 TAKE 1 2-1 No TABLET 0-28 DAILY. 00:00: 00 TAKE 1 2-1 No TABLET 0-28 DAILY. 00:00: 00 1 tab oral 2021-1 No every 6 0-28 hours 00:00: 00 TAKE 1 2021- No TABLET 0-28 DAILY. 00:00: 00 TAKE ONE 2021-1 No 300 (1) 0-26 CAPSULE(S) 00:00: BY MOUTH 00 EVERY TWELVE HOURS. TAKE ONE 2021- No (1) 0-26 TABLET(S) 00:00: BY MOUTH 00 THREE TIMES A DAY. TAKE ONE 2021-05 No 300 (1) 0-26 CAPSULE(S) 00:00: BY MOUTH 00 EVERY TWELVE HOURS. TAKE ONE 2021- No 300 (1) 0-26 CAPSULE(S) 00:00: BY MOUTH 00 EVERY TWELVE HOURS. TAKE ONE 2021- No (1) 0-26 TABLET(S) 00:00: BY MOUTH 00 THREE TIMES A DAY. TAKE ONE 2021-05 No 300 (1) 0-26 CAPSULE(S) 00:00: BY MOUTH 00 EVERY TWELVE HOURS. TAKE ONE 2021-05 No (1) 0-26 TABLET(S) 00:00: BY MOUTH 00 THREE TIMES A DAY. TAKE ONE 2021-05 No 300 (1) 0-26 CAPSULE(S) 00:00: BY MOUTH 00 EVERY TWELVE HOURS. TAKE ONE 2021- No (1) 0-26 TABLET(S) 00:00: BY MOUTH 00 THREE TIMES A DAY. midodrine Yes 2.5mg Q.[id number] Take 2.5 Methodi (PROAMATINE 4-15 [id number] mg by s t ) 2.5 MG [...] and 3 tablets in the PM. hydrOXYchlo 0 Yes 200mg QD Take 200 M ethodi roQUINE 4-[address] (PLAQUENIL) 09:30: mouth Hospi ta 200 mg 01 daily. l tablet lubiproston Yes 24ug Q.5D Take 24 Met hodi e (AMITIZA) 4-[address] 24 MCG 09:30: mouth 2 Hospita capsule 01 (two) l times a day with meals. traZODone Yes 100mg QD Take 100 Met hodi (DESYREL) 4-[address] 50 MG 09:30: mouth Hospita tablet 01 nightly. l aspirin 0 Yes 81mg QD Take 81 mg Meth nicolasa (ECOTRIN) 4-[address] 81 MG 09:30: daily. Hospita enteric 01 l coated tablet Lactobac Yes Take by Method i no.41/Bifid 4-[address] obact no.7 09:30: Hospita (PROBIOTIC- 01 l 10 ORAL) midodrine 2020-0 Yes 2.5mg Q.[id number] Take 2.5 Methodi (PROAMATINE 4-15 [id number] mg by s t ) 2.5 MG 09:30: 3D mouth 3 Hospit a tablet 01 (three) l times a day. lacosamide 0 Yes 50mg Q.5D Take 50 mg M ethodi (Vimpat) 50 4-[address] mg tablet 09:30: (two) Hospita 01 times a l day. levETIRAcet 2020-0 Yes 250mg Take 250 M ethodi am [...] 09:30: daily. Hospita tablet 01 l gabapentin 0 Yes 100mg Take 100 Me thodi (NEURONTIN) [...] (two) l times a day with meals. traZODone 0 Yes 100mg QD Take 100 Met hodi (DESYREL) 4-[address] 50 MG 09:30: mouth Hospita tablet 01 nightly. l aspirin 0 Yes 81mg QD Take 81 mg Meth nicolasa (ECOTRIN) 4-[address] 81 MG 09:30: daily. Hospita enteric 01 l coated tablet Lactobac Yes Take by Method i no.41/Bifid 4-[address] obact no.7 09:30: Hospita (PROBIOTIC- 01 l 10 ORAL) midodrine Yes 2.5mg Q.[id number] Take 2.5 Methodi (PROAMATINE 4-15 [id number] mg by s t ) 2.5 MG 09:30: 3D mouth 3 Hospit a tablet 01 (three) l times a day. lacosamide 0 Yes 50mg Q.5D Take 50 mg M ethodi (Vimpat) 50 4-[address] mg tablet 09:30: (two) Hospita 01 times a l day. levETIRAcet Yes 250mg Take 250 M ethodi am (KEPPRA) 4-[address] 250 MG 09:30: mouth. Hospita tablet 01 Taking l 1,500mg BID. levothyroxi 2021-0 Yes 175ug QD Take 175 M ethodi ne 4-[address] (SYNTHROID) 09:30: mouth Hospi ta 175 mcg 01 daily. l tablet rosuvastati 2021-0 Yes 10mg QD Take 10 mg Methodi n (CRESTOR) 4-[address] 10 mg 09:30: daily. Hospita tablet 01 l gabapentin 1-0 Yes 100mg Take 100 Me thodi (NEURONTIN) 4-[address] 100 mg 09:30: mouth. Hospita capsule 01 Taking 1 l tablet in the AM and 3 tablets in the PM. hydrOXYchlo 2021-0 Yes 200mg QD Take 200 M ethodi roQUINE 4-[address] (PLAQUENIL) 09:30: mouth Hospi ta 200 mg 01 daily. l tablet lacosamide 2020-0 Yes 50mg Q.5D Take 50 mg M ethodi (Vimpat) 50 4-[address] mg tablet 09:30: (two) Hospita 01 times a l day. levETIRAcet 2020-0 Yes 250mg Take 250 M ethodi am (KEPPRA) 4-[address] 250 MG 09:30: mouth. Hospita tablet 01 Taking l 1,500mg BID. levothyroxi 2021-0 Yes 175ug QD Take 175 M ethodi ne 4-[address] (SYNTHROID) 09:30: mouth Hospi ta 175 mcg 01 daily. l tablet rosuvastati 1-0 Yes 10mg QD Take 10 mg Methodi n (CRESTOR) 4-[address] 10 mg 09:30: daily. Hospita tablet 01 l lubiproston 1-0 Yes 24ug Q.5D Take 24 Met hodi e (AMITIZA) 4-[address] 24 MCG 09:30: mouth 2 Hospita capsule 01 (two) l times a day with meals. gabapentin 2021-0 Yes 100mg Take 100 Me thodi (NEURONTIN) 4-[address] 100 mg 09:30: mouth. Hospita capsule 01 Taking 1 l tablet in the AM and 3 tablets in the PM. hydrOXYchlo 2021-0 Yes 200mg QD Take 200 M ethodi roQUINE 4-[address] (PLAQUENIL) 09:30: mouth Hospi ta 200 mg 01 daily. l tablet lubiproston 2020-0 Yes 24ug Q.5D Take 24 Met hodi e (AMITIZA) 4-[address] 24 MCG 09:30: mouth 2 Hospita capsule 01 (two) l times a day with meals. traZODone 2020-0 Yes 100mg QD Take 100 Met hodi (DESYREL) 4-[address] 50 MG 09:30: mouth Hospita tablet 01 nightly. l aspirin 2020-0 Yes 81mg QD Take 81 mg Meth nicolasa (ECOTRIN) 4-[address] 81 MG 09:30: daily. Hospita enteric 01 l coated tablet Lactobac Yes Take by Method i no.41/Bifid 4-[address] obact no.7 09:30: Hospita (PROBIOTIC- 01 l 10 ORAL) midodrine 2020-0 Yes 2.5mg Q.[id number] Take 2.5 Methodi (PROAMATINE 4-15 [id number] mg by s t ) 2.5 MG 09:30: 3D mouth 3 Hospit a tablet 01 (three) l times a day. traZODone 2020-0 Yes 100mg QD Take 100 Met hodi (DESYREL) 4-[address] 50 MG 09:30: mouth Hospita tablet 01 nightly. l aspirin 2020-0 Yes 81mg QD Take 81 mg Meth nicolasa (ECOTRIN) 4-[address] 81 MG 09:30: daily. Hospita enteric 01 l coated tablet Lactobac Yes Take by Method i no.41/Bifid 4-[address] obact no.7 09:30: Hospita (PROBIOTIC- 01 l 10 ORAL) midodrine 2020-0 Yes 2.5mg Q.[id number] Take 2.5 Methodi (PROAMATINE 4-15 [id number] mg by s t ) 2.5 MG 09:30: 3D mouth 3 Hospit a tablet 01 (three) l times a day. lacosamide 2020-0 Yes 50mg Q.5D Take 50 mg M ethodi (Vimpat) 50 4-[address] mg tablet 09:30: (two) Hospita 01 times a l day. levETIRAcet 2020-0 Yes 250mg Take 250 M ethodi am (KEPPRA) 4-[address] 250 MG 09:30: mouth. Hospita tablet 01 Taking l 1,500mg BID. levothyroxi 2020-0 Yes 175ug QD Take 175 M ethodi ne 4-[address] (SYNTHROID) 09:30: mouth Hospi ta 175 mcg 01 daily. l tablet rosuvastati 0 Yes 10mg QD Take 10 mg Methodi n (CRESTOR) 4-[address] 10 mg 09:30: daily. Hospita tablet 01 l gabapentin 2020-0 Yes 100mg Take 100 Me thodi (NEURONTIN) 4-[address] 100 mg 09:30: mouth. Hospita capsule 01 Taking 1 l tablet in the AM and 3 tablets in the PM. hydrOXYchlo 0 Yes 200mg QD Take 200 M ethodi roQUINE 4-[address] (PLAQUENIL) 09:30: mouth Hospi ta 200 mg 01 daily. l tablet lubiproston 0 Yes 24ug Q.5D Take 24 Met hodi e (AMITIZA) 4-[address] 24 MCG 09:30: mouth 2 Hospita capsule 01 (two) l times a day with meals. traZODone 2020-0 Yes 100mg QD Take 100 Met hodi (DESYREL) 4-[address] 50 MG 09:30: mouth Hospita tablet 01 nightly. l aspirin 0 Yes 81mg QD Take 81 mg Meth nicolasa (ECOTRIN) 4-[address] 81 MG 09:30: daily. Hospita enteric 01 l coated tablet Lactobac Yes Take by Method i no.41/Bifid 4-[address] obact no.7 09:30: Hospita (PROBIOTIC- 01 l 10 ORAL) midodrine 2020-0 Yes 2.5mg Q.[id number] Take 2.5 Methodi (PROAMATINE 4-15 [id number] mg by s t ) 2.5 MG 09:30: 3D mouth 3 Hospit a tablet 01 (three) l times a day. lacosamide 2020-0 Yes 50mg Q.5D Take 50 mg M ethodi (Vimpat) 50 4-[address] mg tablet 09:30: (two) Hospita 01 times a l day. levETIRAcet 0 Yes 250mg Take 250 M ethodi am (KEPPRA) 4-[address] 250 MG 09:30: mouth. Hospita tablet Taking l 1,500mg BID. levothyroxi 0 Yes 175ug QD Take 175 M ethodi [...] (two) l times a day with meals. traZODone Yes 100mg QD Take 100 Met [...] 09:30: Hospita (PROBIOTIC- 01 l 10 ORAL) amoxicillin 202- No 1{tbl} 1 tablet, Univers -clavulanat 05-31 Oral, ONCE i ty of e 05:00: 04:02 NOW, 1 [place] (AUGMENTIN) 00 :00 dose, Tue Med ical 875-125 mg 05/30/20 at Bran ch per tablet 2300, 1 tablet Routine
Reason for Anti-Infec tive: Documented Infection< br>Documen justino Infection Site: Respirator y
Durat ion of Therapy: Other (see Comments) ketorolac No 15mg 15 mg, Unive rs (TORADOL) 05-31 Slow IV ity of injection 03:30: 02:26 Push, [place] 15 mg 00 :00 ONCE, 1 Medical dose, [facility] Branch 05/30/20 at 2130, EVANS
Fa culty member approving Restricted medication : JANENE NAVAS hydrOXYzine 2020- No 25mg 25 mg, Uni vers (ATARAX) 05-31 Oral, ity of tablet 25 03:30: 02:26 ONCE, 1 [place] mg 00 :00 dose, [facility] 05/30/20 at Branch 2130, EVANS famotidine 2020- No 20mg 20 mg, Univ ers (PEPCID 05-31 Slow IV ity of (PF)) 03:30: 02:26 Push, [place] injection 00 :00 ONCE, 1 Medical 20 mg dose, [facility] Branch 05/30/20 at 2130, EVANS iohexol 2020- No 100mL 100 mL, Unive rs (OMNIPAQUE 05-31 Intravenou it y of 350 01:45: 01:37 s, ONCE, 1 [place] BULK-150 00 :00 dose, [facility] Medica l mL) 05/30/20 at Branch injection 194, 100 mL Routine butalbital- 2020- No 1{tbl} 1 tablet, [facility] acetaminoph 05-31 Oral, ONCE i ty of en-caff 01:45: 00:52 NOW, 1 [place] (ESGIC) 00 :00 dose, [facility] Medical 50-325-40 05/30/20 at Bran h mg tablet 1944, tablet Routine diphenhydrA 2020- No 50mg 50 mg, Uni vers MINE 05-31 Slow IV ity of (BENADRYL) 00:15: 00:52 Push, [place] injection 00 :00 ONCE, 1 Medical 50 mg dose, [facility] Branch 05/30/20 at 1815, STAT methylPREDN 2020- No 40mg 40 mg, IV Univers ISolone sod 05-31-06 Piggyback, i ty of succ 00:15: 00:52 ONCE, 1 [place] (SOLU-MEDRO 00 :00 dose, Tue Med ical L (PF)) 05/30/20 at Branch injection 1815, STAT 40 mg NaCl 0.9% 2020- No 1000mL at 999 Uni vers (NS) bolus 05 -06 mL/hr, ity of infusion 23:15: 02:15 1,000 mL, [place] as 1,000 mL 00 :00 IV Medical Infusion, Branch ONCE, 1 dose, 05/30/20 at 1715, EVANS albuterol Yes [id number] 2{puff} Inhale 2 Univers 90 1-05 Puffs ity of mcg/actuati 00:00: every 4 [place] as on inhaler 00 (four) Medical hours as Branch needed for Wheezing or Shortness of Breath. hydrOXYzine Yes [id number] 25mg Take 1 Univers 25 mg 1-05 tablet by ity of tablet 00:00: mouth [place] 00 every 6 Medical (six) Branch hours as needed for Itching. albuterol Yes [id number] 2{puff} Inhale 2 Univers 90 1-05 Puffs ity of mcg/actuati 00:00: every 4 [place] as on inhaler 00 (four) Medical hours as Branch needed for Wheezing or Shortness of Breath. albuterol 0 Yes [id number] 2{puff} Inhale 2 Univers 90 1-05 Puffs ity of mcg/actuati 00:00: every 4 [place] as on inhaler 00 (four) Medical hours as Branch needed for Wheezing or Shortness of Breath. hydrOXYzine 0 Yes [id number] 25mg Take 1 Univers 25 mg 1-05 tablet by ity of tablet 00:00: mouth [place] 00 every 6 Medical (six) Branch hours as needed for Itching. hydrOXYzine 0 Yes [id number] 25mg Take 1 Univers 25 mg 1-05 tablet by ity of tablet 00:00: mouth [place] 00 every 6 Medical (six) Branch hours as needed for Itching. albuterol 2020-0 Yes [id number] 2{puff} Inhale 2 Univers 90 1-05 Puffs ity of mcg/actuati 00:00: every 4 [place] as on inhaler 00 (four) Medical hours as Branch needed for Wheezing or Shortness of Breath. hydrOXYzine Yes [id number] 25mg Take 1 Univers 25 mg 1-05 tablet by ity of tablet 00:00: mouth [place] 00 every 6 Medical (six) Branch hours as needed for Itching. amoxicillin 2020- No [id number] 1{tbl} Take 1 Univers -clavulanat 1-05 -13 tablet by it y of e 875-125 [...] as Branch needed for Pain (scale 4-6). proMETHazin 2012-05 Yes 12.5mg Take 0.5 Univers [...] as Branch needed for Pain (scale 4-6). proMETHazin 2012-05 Yes 12.5mg Take 0.5 Univers [...] as Branch needed for Pain (scale 4-6). proMETHazin 2012-05 Yes 12.5mg Take 0.5 Univers [...] Name Observation Time Observation Value Comments Source Respiratory rate 2022-06-01 00:00:00 11 /min [facility] Systolic blood 2022-06-01 00:00:00 110 [facility]Hg[facility] 2022-06-01 00:00:00 80 mm[Hg] Unive [facility] Heart rate 2022-06-01 00:00:00 81 /min [facility] Oxygen saturation in 2022-05-31 23:30:00 98 /min [facility] Arterial blood by [facility] Pulse oximetry Branch Body weight 2022-05-31 21:04:00 95.255 kg [facility] BMI 2022-05-31 21:04:00 29.29 kg/m2 [facility] Systolic blood 2020-05-31 03:01:00 105 mm[Hg] [facility] Diastolic blood 2020-05-31 03:01:00 71 mm[Hg] Unive [facility] Heart rate 2020-05-31 03:01:00 73 /min [facility] Body temperature 2020-05-31 03:01:00 36.56 Yanet [facility] Respiratory rate 2020-05-31 03:01:00 18 /min [facility] Oxygen saturation in 2020-05-31 03:01:00 98 /min University of Arterial blood by [facility] jani Pulse oximetry Branch Body height 2020-05-30 21:27:00 180.3 cm Universi ty of [place] [facility] [place] Body weight 2020-05-30 21:27:00 92.987 kg Universi ty of [facility] BMI 2020-05-30 21:27:00 28.59 kg/m2 Universi ty [facility] Systolic blood 2020-05-31 03:01:00 105 mm[Hg] Univer sity of pressure [facility] Diastolic blood 2020-05-31 03:01:00 71 mm[Hg] Unive rsity of pressure [facility] Heart rate 2020-05-31 03:01:00 73 /min Universi ty [facility] Body temperature 2020-05-31 03:01:00 36.56 [facility] 2020-05-31 03:01:00 18 /min [facility] O[facility] in 2020-05-31 03:01:00 98 /min University of Arterial blood by [facility] Pulse oximetry Branch Body height 2020-05-30 21:27:00 180.3 cm Universi ty [facility] Body weight 2020-05-30 21:27:00 92.987 kg Universi ty [facility] BMI 2020-05-30 21:27:00 28.59 kg/m2 [facility] BP Systolic 2022-06-10 15:11:00 104 mm[Hg] BP Diastolic 2022-06-10 15:11:00 71 mm[Hg] Weight Measured 2022-06-10 15:11:00 Height Measured 2022-06-10 15:11:00 61.00 inches Body Temperature 2022-06-10 15:11:00 98.30 degrees Heart Rate 2022-06-10 15:11:00 77.00 /min Respiratory Rate 2022-06-10 15:11:00 18.00 /min BP Systolic 2022-04-16 11:24:00 113 mm[Hg] BP Diastolic 2022-04-16 11:24:00 82 mm[Hg] Weight Measured 2022-04-16 11:24:00 Height Measured 2022-04-16 11:24:00 61.00 inches Body Temperature 2022-04-16 11:24:00 97.70 degrees Heart Rate 2022-04-16 11:24:00 69.00 /min Respiratory Rate 2022-04-16 11:24:00 16.00 /min BP Systolic 2022-04-09 11:43:00 116 mm[Hg] BP Diastolic 2022-04-09 11:43:00 82 mm[Hg] Weight Measured 2022-04-09 11:43:00 Height Measured 2022-04-09 11:43:00 61.00 inches Body Temperature 2022-04-09 11:43:00 98.10 degrees Heart Rate 2022-04-09 11:43:00 86.00 /min Respiratory Rate 2022-04-09 11:43:00 18.00 /min BP Systolic 2022-04-03 10:19:00 104 mm[Hg] BP Diastolic 2022-04-03 10:19:00 72 mm[Hg] Weight Measured 2022-04-03 10:19:00 Height Measured 2022-04-03 10:19:00 61.00 inches Body Temperature 2022-04-03 10:19:00 98.40 degrees Heart Rate 2022-04-03 10:19:00 80.00 /min Respiratory Rate 2022-04-03 10:19:00 17.00 /min BP Systolic 2022-03-22 15:13:00 105 mm[Hg] BP Diastolic 2022-03-22 15:13:00 83 mm[Hg] Weight Measured 2022-03-22 15:13:00 Height Measured 2022-03-22 15:13:00 Body Temperature 2022-03-22 15:13:00 97.60 degrees Heart Rate 2022-03-22 15:13:00 73.00 /min Respiratory Rate 2022-03-22 15:13:00 16.00 /min BP Systolic 2022-03-22 13:56:00 105 mm[Hg] BP Diastolic 2022-03-22 13:56:00 83 mm[Hg] Weight Measured 2022-03-22 13:56:00 245.00 pounds Height Measured 2022-03-22 13:56:00 61.00 inches Body Temperature 2022-03-22 13:56:00 97.60 degrees Heart Rate 2022-03-22 13:56:00 73.00 /min Respiratory Rate 2022-03-22 13:56:00 16.00 /min Procedures Procedure Date / Time Performing Clinician Source Performed REFERRAL- 2022-06-10 06:01:00 Doctor Unassigned, No [facility] REQUEST/RESPONSE Name Medical Branch URINALYSIS 2022-05-31 22:18:00 Genia Maria [facility] [place] CT STROKE ANGIOGRAM 2022-05-31 21:59:00 Genia Maria [facility] HEAD Medical Branch CT STROKE ANGIOGRAM 2022-05-31 21:59:00 Genia Maria [facility] NECK [facility] CT STROKE HEAD WO 2022-05-31 21:57:00 Genia Maria [facility] CONTRAST [facility] TROPONIN I 2022-05-31 21:36:00 Genia Maria [facility] [place] BASIC METABOLIC PANEL 2022-05-31 21:36:00 [facility], CO2, Medical Branch GLUCOSE, BUN, CREATININE, CA) CBC WITHOUT DIFF 2022-05-31 21:36:00 Genia Maria [facility] PROTHROMBIN TIME / INR 2022-05-31 21:36:00 [facility] 2022-05-31 21:36:00 Genia Maria [facility] THRMPLAS JAMIE [facility] POCT GLUCOSE 2022-05-31 21:35:00 Genia Marai [facility] (AUTOMATED) [facility] Branch CONSENT/REFUSAL FOR 2022-05-31 20:58:19 Doctor Unassigned, No [facility] Name Medical Branch URINALYSIS 2020-05-31 03:43:00 Janene Navas [facility] CT CHEST PULMONARY 2020-05-31 01:43:20 Janene Navas [facility] ANGIOGRAM Medical Branch POCT TEST 2020-05-31 01:29:00 Janene Navas [facility] Branch COVID-19 (ID NOW RAPID 2020-05-31 00:53:00 Janene Navas [facility] TESTING) Medical Branch XR CHEST 1 VW 2020-05-31 00:09:22 Janene Navas [facility] TROPONIN I 2020-05-31 00:03:00 Janene Navas [facility] COMP. METABOLIC PANEL 2020-05-31 00:03:00 Janene Navas [facility] ([id number]) Medical Branch CBC WITH DIFF 2020-05-31 00:03:00 Janene Navas [facility] D-DIMER 2020-05-31 00:03:00 Janene Navas [facility] NOTICE OF PRIVACY 2020-05-30 21:02:17 Doctor Unassigned, [facility] PRACTICES Name Medical Branch Plan of Care Planned Activity Planned Date Details Comments Source Future Scheduled 2022-06-17 COVID-19 VACCINE (#1) [facility] Hospital Test 14:18:23 [code = COVID-19 VACCINE (#1)] Future Scheduled 2022-06-17 Pneumococcal Vaccine: [facility] Hospital Test 14:18:23 Pediatrics (0 to 5 Years) and At-Risk Patients (6 to 64 Years) (1 - PCV) [code = Pneumococcal Vaccine: Pediatrics (0 to 5 Years) and At-Risk Patients (6 to 64 Years) (1 - PCV)] Future Scheduled 2022-06-17 Hepatitis [facility] screening [facility] Test 14:18:23 (procedure) [code = 260356609] Future Scheduled 2022-06-17 Screening for [facility] Test 14:18:23 malignant neoplasm of cervix (procedure) [code = 172325456] Future Scheduled 2022-06-17 BREAST CANCER [facility] Test 14:18:23 SCREENING [code = BREAST CANCER SCREENING] Future Scheduled 2022-06-17 INFLUENZA VACCINE [facility] Test 14:18:23 [code = INFLUENZA VACCINE] Future Scheduled 2022-05-20 COVID-19 VACCINE (#1) [facility] Hospital Test 06:48:16 [code = COVID-19 VACCINE (#1)] Future Scheduled 2022-05-20 Pneumococcal Vaccine: [facility] Test 06:48:16 Pediatrics (0 to 5 Years) and At-Risk Patients (6 to 64 Years) (1 - PCV) [code = Pneumococcal Vaccine: Pediatrics (0 to 5 Years) and At-Risk Patients (6 to 64 Years) (1 - PCV)] Future Scheduled 2022-05-20 Hepatitis C screening [facility] Test 06:48:16 (procedure) [code = 721998788] Future Scheduled 2022-05-20 Screening for [facility] Test 06:48:16 malignant neoplasm of cervix (procedure) [code = 848563640] Future Scheduled 2022-05-20 BREAST CANCER [facility] Test 06:48:16 SCREENING [code = BREAST CANCER SCREENING] Future Scheduled 2022-05-[address] [facility] Hospital Test 06:48:16 [code = INFLUENZA VACCINE] Future Scheduled 2022-05-20 COVID-19 VACCINE (#1) [facility] Test 06:48:16 [code = COVID-19 VACCINE (#1)] Future Scheduled 2022-05-20 Pneumococcal Vaccine: [facility] Test 06:48:16 Pediatrics (0 to 5 Years) and At-Risk Patients (6 to 64 Years) (1 - PCV) [code = Pneumococcal Vaccine: Pediatrics (0 to 5 Years) and At-Risk Patients (6 to 64 Years) (1 - PCV)] Future Scheduled 2022-05-20 Hepatitis C screening [facility] Test 06:48:16 (procedure) [code = 723801097] Future Scheduled 2022-05-20 Screening for [facility] Test 06:48:16 malignant neoplasm of cervix (procedure) [code = 764841782] Future Scheduled 2022-05-20 BREAST CANCER [facility] Test 06:48:16 SCREENING [code = BREAST CANCER SCREENING] Future Scheduled 2022-05-20 INFLUENZA VACCINE Method [facility] Hospital Test 06:48:16 [code = INFLUENZA VACCINE] Future Scheduled 2022-04-16 HEPATITIS B VACCINES Met [facility] Test 11:13:19 (1 of 3 - 3-dose series) [code = HEPATITIS B VACCINES (1 of 3 - 3-dose series)] Future Scheduled 2022-04-16 COVID-19 VACCINE (#1) [facility] Test 11:13:19 [code = COVID-19 VACCINE (#1)] Future Scheduled 2022-04-16 Pneumococcal Vaccine: [facility] Test 11:13:19 Pediatrics (0 to 5 Years) and At-Risk Patients (6 to 64 Years) (1 - PCV) [code = Pneumococcal Vaccine: Pediatrics (0 to 5 Years) and At-Risk Patients (6 to 64 Years) (1 - PCV)] Future Scheduled 2022-04-16 Hepatitis C screening [facility] Test 11:13:19 (procedure) [code = 488470516] Future Scheduled 2022-04-16 Screening for [facility] Test 11:13:19 malignant neoplasm of cervix (procedure) [code = 044704987] Future Scheduled 2022-04-16 BREAST CANCER [facility] Test 11:13:19 SCREENING [code = BREAST CANCER SCREENING] Future Scheduled 2022-04-[address] [facility] Hospital Test 11:13:19 [code = INFLUENZA VACCINE] Future Scheduled 2022-04-16 HEPATITIS B VACCINES Met [facility] Test 11:13:19 (1 of 3 - 3-dose series) [code = HEPATITIS B VACCINES (1 of 3 - 3-dose series)] Future Scheduled 2022-04-16 COVID-19 VACCINE (#1) [facility] Test 11:13:19 [code = COVID-19 VACCINE (#1)] Future Scheduled 2022-04-16 Pneumococcal Vaccine: [facility] Test 11:13:19 Pediatrics (0 to 5 Years) and At-Risk Patients (6 to 64 Years) (1 - PCV) [code = Pneumococcal Vaccine: Pediatrics (0 to 5 Years) and At-Risk Patients (6 to 64 Years) (1 - PCV)] Future Scheduled 2022-04-16 Hepatitis C screening [facility] Test 11:13:19 (procedure) [code = 832777713] Future Scheduled 2022-04-16 Screening for [facility] Test 11:13:19 malignant neoplasm of cervix (procedure) [code = 316866807] Future Scheduled 2022-04-16 BREAST CANCER [facility] Test 11:13:19 SCREENING [code = BREAST CANCER SCREENING] Future Scheduled 2022-04-16 INFLUENZA VACCINE Method [facility] Test 11:13:19 [code = INFLUENZA VACCINE] Future Scheduled 2022-01-25 HEPATITIS B VACCINES Met [facility] Test 19:24:17 (1 of 3 - 3-dose series) [code = HEPATITIS B VACCINES (1 of 3 - 3-dose series)] Future Scheduled 2022-01-25 COVID-19 VACCINE (#1) [facility] Test 19:24:17 [code = COVID-19 VACCINE (#1)] Future Scheduled 2022-01-25 Pneumococcal Vaccine: [facility] Test 19:24:17 Pediatrics (0 to 5 Years) and At-Risk Patients (6 to 64 Years) (1 - PCV) [code = Pneumococcal Vaccine: Pediatrics (0 to 5 Years) and At-Risk Patients (6 to 64 Years) (1 - PCV)] Future Scheduled 2022-01-25 Hepatitis C screening [facility] Test 19:24:17 (procedure) [code = 088440469] Future Scheduled 2022-01-25 Screening for [facility] Test 19:24:17 malignant neoplasm of cervix (procedure) [code = 825663817] Future Scheduled 2022-01-25 BREAST CANCER [facility] Test 19:24:17 SCREENING [code = BREAST CANCER SCREENING] Future Scheduled 2022-01-[address] [facility] Hospital Test 19:24:17 [code = INFLUENZA VACCINE] Goal Plan of Care Note [code = 98137-8] Goal Plan of Care Note [code = 41921-1] Goal Plan of Care Note [code = 26993-6] Goal Plan of Care Note [code = 68038-5] Goal Plan of Care Note [code = 65361-9] Goal Plan of Care Note [code = 84152-9] Goal Plan of Care Note [code = 97623-8] Goal Plan of Care Note [code = 61607-4] Goal Plan of Care Note [code = 62227-1] Goal Plan of Care Note [code = 33104-5] Goal Plan of Care Note [code = 48817-8] Goal Plan of Care Note [code = 58377-9] Goal Plan of Care Note [code = 04457-2] Goal Plan of Care Note [code = 95038-9] Goal Plan of Care Note [code = 41643-3] Goal Plan of Care Note [code = 83653-2] Goal Plan of Care Note [code = 46592-9] Goal Plan of Care Note [code = 89900-8] Goal Plan of Care Note [code = 67556-2] Goal Plan of Care Note [code = 41018-7] Goal Plan of Care Note [code = 31749-8] Goal Plan of Care Note [code = 06324-9] Goal Plan of Care Note [code = 97011-1] Goal Plan of Care Note [code = 50381-2] Goal Plan of Care Note [code = 94509-9] Goal Plan of Care Note [code = 16589-0] Goal Plan of Care Note [code = 43075-9] Goal Plan of Care Note [code = 66786-8] Goal Plan of Care Note [code = 03585-6] Goal Plan of Care Note [code = 77348-5] Goal Plan of Care Note [code = 32659-5] Goal Plan of Care Note [code = 53687-1] Goal Plan of Care Note [code = 49951-1] Goal Plan of Care Note [code = 07023-5] Goal Plan of Care Note [code = 42846-6] Goal Plan of Care Note [code = 48986-2] Goal Plan of Care Note [code = 02172-2] Goal Plan of Care Note [code = 06200-3] Goal Plan of Care Note [code = 82765-5] Goal Plan of Care Note [code = 82162-6] Goal Plan of Care Note [code = 13829-6] Goal Plan of Care Note [code = 22927-4] Goal Plan of Care Note [code = 32213-9] Goal Plan of Care Note [code = 09846-3] Goal Plan of Care Note [code = 45099-0] Goal Plan of Care Note [code = 80890-5] Goal Plan of Care Note [code = 15418-3] Goal Plan of Care Note [code = 19145-7] Goal Plan of Care Note [code = 67909-6] Goal Plan of Care Note [code = 86865-2] Goal Plan of Care Note [code = 50491-4] Goal Plan of Care Note [code = 11468-1] Goal Plan of Care Note [code = 91245-6] Goal Plan of Care Note [code = 58621-6] Goal Plan of Care Note [code = 05387-1] Goal Plan of Care Note [code = 65114-3] Goal Plan of Care Note [code = 35910-8] Goal Plan of Care Note [code = 73865-9] Goal Plan of Care Note [code = 31071-8] Goal Plan of Care Note [code = 38032-1] Goal Plan of Care Note [code = 15844-5] Goal Plan of Care Note [code = 92531-2] Goal Plan of Care Note [code = 81890-6] Goal Plan of Care Note [code = 11809-5] Goal Plan of Care Note [code = 79073-3] Goal Plan of Care Note [code = 84173-1] Goal Plan of Care Note [code = 85319-1] Goal Plan of Care Note [code = 99846-9] Goal Plan of Care Note [code = 93843-4] Goal Plan of Care Note [code = 28461-3] Goal Plan of Care Note [code = 56386-6] Goal Plan of Care Note [code = 89066-2] Goal Plan of Care Note [code = 37032-5] Goal Plan of Care Note [code = 38734-7] Goal Plan of Care Note [code = 73819-3] Encounters Start End Encounter Admission Attending Care Care Encounter Source Date/Time Date/Time Type Type Clinicians Facility Department ID 2022-06-17 2022-06-17 Outpatient [facility] Ismael 09:35:27 09:35:27 [id number] F Sim 2022-06-17 2022-06-17 Telephone MASOUD Anna [id number] [facility] 00:00:00 00:00:00 [facility] 350.1.13.10 i [facility] 4.2.7.[id number] [address] Branch 2022-06-10 2022-06-10 Outpatient [facility] [id number] Ismael 15:07:29 15:07:29 [id number] F Sim 2022-06-10 2022-06-10 Outpatient [id number]- [id number] b35bf6-b 00:00:00 00:00:00 Visit x13i-4mm7 06b-4fe2-b -p4s8-q0j 7e7-t7quhn rmy11eo1q 62df9e 2022-06-10 2022-06-10 Orders Doctor HELADIO [id number] [place] [address] 00:00:00 00:00:00 Only Unassigned, BONIFACIO 350.1.13.10 ity of [facility] 4.2.7.2.686 [place] [id number] [facility] 009 Branch 2022-05-31 2022-05-31 Emergency X CROW, [facility] ERT [id number] Univers 15:07:00 18:42:00 FOLUSHO ity of [facility] 2022-05-31 2022-05-31 Emergency [facility] 1.2.840.114 [id number] Univers 15:07:00 18:42:00 Genia Kevan [place] 350.1.13.10 ity of [place] 4.2.7.2.686 [facility] [id number] [facility] 0[address] [place] 2022-04-16 2022-04-16 Outpatient [facility] Ismael 11:13:16 11:13:16 [id number] F [place] 2022-04-16 2022-04-16 Outpatient [id number]- [id number] t9l48q-3 00:00:00 00:00:00 Visit 9nu9-987e aa1-478a-b -i2d1-401 0t4-3034h4 3h6q071zp e604be 2022-04-09 2022-04-09 Outpatient [facility] Ismael 11:38:52 11:38:52 [id number] F Nova 2022-04-09 2022-04-09 Outpatient [id number]- [id number] mr8l1w-1 00:00:00 00:00:00 Visit 482a-414e 82a-414e-9 -9408-24e 408-24e7e0 3g071761r 45151s 2022-04-03 2022-04-03 Outpatient [id number]- [id number] 7f 2972t5-2 00:00:00 00:00:00 Visit 0953-4c87 953-4c87-a -q4z2-6q7 3l7-4r9j82 t99e5xq3a f2fe2a 2022-03-22 2022-03-22 Outpatient [id number]- [id number] 3cw727-q 00:00:00 00:00:00 Visit r4d7-970q 6b4-662j-9 -80y7-923 1s6-8854v0 0l07s990b 8v220v 2020-09-07 2020-09-07 Outpatient LIZETDERECK [facility] 132 [id number] [place] 00:00:00 00:00:[address] 2020-09-07 2020-09-07 Outpatient DERECK HINDS [facility] 664 [id number] [place] 00:00:00 00:00:[address] 2020-09-07 2020-09-07 Outpatient DERECK HINDS [facility] [id number] [place] 00:00:00 00:00:[address] 2020-09-07 2020-09-07 Outpatient LIZETDERECK [facility] 204 [id number] [place] 00:00:00 00:00:[address] 2020-05-30 2020-05-30 Emergency [facility] 1.2.258.018 [id number] 16:01:00 23:26:00 Janene Ayala 350.1.13.10 [place] 4.2.7.2.686 [place] [id number] [facility] 2020-05-30 2020-05-30 Emergency [facility] 1.2.435.[id number] [facility] 16:01:00 23:26:00 Janene [place] 350.1.13.10 i ty of [place] 4.2.7.[address].686 [facility] [id number] [place] [address] Branch 2020-05-30 2020-05-30 Emergency X [facility] ERT [id number] [facility] 16:01:00 23:26:00 [facility] Test Description Test Time Test Comments Results Result Comments Source TSH, THIRD GENERATION 2022-06-12 06:20:06 Test Item Value Reference Range Interpretation Comme nts TSH, THIRD GENERATION (test 0.023 UIU/ML 0.400-4.100 L UNLESS OTHERWISE INDICATED, code = 2821) ALL TESTING PER FORMED ATCLINICAL PATH [facility] [place]. [address] [place] [address] 6[address] PRIVACY SPECIALIST: JOVANA HAQ M.D. ANGIE [place] [id number] [place] [id number] Troponin I - Code [id number] 22:05:04 Test Item Value Reference Interpretation Comments Range TROPONIN I (test 0.001 ng/mL See_Comment [Automated code = 4283149194) message] The system which generated this result transmitted reference range : <=0.034. The reference range was not used to interpret this result as normal/abnormal . JASMEET (test code = Reference (Normal) JASMEET) Range (defined by the 99th percentile reference limit): <= 0.034 ng/mL Note: Cardiac troponin begins to rise 3-4 hours after the onset of ischemia. Repeat in 4-6 hours if the sample was drawn within 3-4 hours of the onset of the symptom and found normal. Diagnosis of myocardial injury is made with acute changes in cTn concentrations with at least one serial sample above the 99th percentile upper reference limit (URL), taken together with the patient's clinical presentation. Biotin has been reported to cause a negative bias, interpret results relative to patient's use of biotin. Lab Interpretation Normal (test code = 38260-4) [facility] Code [id number] 21:52:45 Test Item Value Reference Range Interpretation Comments APTT Patient (test See_Comment [Automat ed code = 3173-2) message] The system which generated this result transmitted reference range : 23 - 38 Seconds . The reference range was not used to interpr et this result as normal/abnormal . JASMEET (test code = JASMEET) The [facility] patient population mean normal value for aPTT is 30 seconds. Lab Interpretation Normal (test code = 81335-2) [facility] (NA, K, CL, CO2, Glucose, BUN, Creatinine, CA) - Code [id number] 21:52:45 Test Item Value Reference Range Interpretation Comments NA (test code = 139 mmol/L 135-145 5675939222) K (test code = 4.2 mmol/L 3.5-5.0 3367241749) CL (test code = 103 mmol/L 98-108 8335576692) CO2 TOTAL (test code = 27 mmol/L 23-31 4536417298) AGAP (test code = 2-16 1445265656) BUN (test code = 3 mg/dL 7-23 L 3242706717) GLUCOSE (test code = 99 mg/dL 70-110 1913178053) CREATININE (test code = 0.58 mg/dL 0.50-1.04 5289751498) CALCIUM (test code = 8.9 mg/dL 8.6-10.6 7705482768) eGFR (test code = mL/min/1.73m2 3996892166) JASMEET (test code = JASMEET) Association of [...] tests). Lab Interpretation Abnormal (test code = 45143-8) [facility] Time / INR - Code [id number] 21:50:26 Test Item Value Reference Range Interpretation Comments PROTIME PATIENT (test See_Comment [Auto mated message] code = 5964-2) The system [employer] generated this result transmitted ref erence range: 12.0 - 1 4.7 Seconds. The re ference range was not u sed to interpret this result as normal/abnor mal. INR (test code = 6301-6) Nor mal INR <1.1; Warfarin Therap eutic range 2.0 to 3. 0 or 2.5 to 3.5, dep ending upon the indica tions. Lab Interpretation (test Normal code = 00968-5) [facility] without Diff - Code [id number] 21:43:21 Test Item Value Reference Range Interpretation Comments WBC (test code = 6690-2) See_Comment [A utomated message] The system [employer] generated this result transmit justino reference range : 4.30 - 11.10 10*3/?L. The reference range was not used to interpret this result as normal/abnormal . RBC (test code = 789-8) See_Comment [Au tomated message] The system [employer] generated this result transmit jsutino reference range : 3.93 - 5.25 10* 6/?L. The reference r fiona was not used to interpret this result as normal/abnormal . HGB (test code = 718-7) 13.6 g/dL 11.6-15.0 HCT (test code = 4544-3) 40.9 % 35.7-45.2 MCH (test code = 785-6) 30.4 pg 25.9-32.8 MCV (test code = 787-2) 91.3 fL 80.6-95.5 MCHC (test code = 786-4) 33.3 g/dL 31.6-35.1 PLT (test code = 777-3) See_Comment [Au tomated message] The system [employer] generated this result transmit justino reference range : 166 - 358 10*3/?L. The reference range was not used to interpret this result as normal/abnormal . MPV (test code = 9.9 fL 9.5-12.9 48498-0) RDW-CV (test code = 11.4 % 12.0-15.5 L 788-0) RDW-SD (test code = 38.6 fL 39.0-49.9 L 79364-8) NRBC x10^3 (test code = See_Comment [Au tomated message] [id number]) The system [employer] generated this result transmit justino reference range : 10*3/?L. The reference range was not used to interpret this result as normal/abnormal . NRBC/100 WBC (test code See_Comment [Au tomated message] = 1959286178) The system [employer] generated this result transmit justino reference range : 0.0 - 10.0 /100 WBC s. The reference r fiona was not used to interpret this result as normal/abnormal . IPF % (test code = 9642870287) Lab Interpretation (test Abnormal code = 74778-5) [facility] GLUCOSE (AUTOMATED)2022-05-31 21:38:39 Test Item Value Reference Range Interpretation Comments POCT GLU (test code = 8695497700) 116 mg/dL 70-110 H Lab Interpretation (test code = Abnormal 73771-2) [facility], [id number] 11:21:16SPECIMEN NUMBER: [id number] CULTURE, URINE SPECIMEN NUMBER: [id number] SPECIMEN COMMENT: URINE SOURCE: URINE REPORT STATUS: FINAL ISOLATE NUMBER 1: ORGANISM: 04/17/2022 >100,000 CFU/ML GRAM NEGATIVE BACILLI IDENTIFICATION: 04/18/2022 KLEBSIELLA OXYTOCA K. OXYTOCA AMOXICILLIN/CA SENSITIVE <=8/4AMPICILLIN RESISTANT >16CEFAZOLIN SENSITIVE 8CEFTRIAXONE SENSITIVE <=1CIPROFLOXACIN SENSITIVE <=1LEVOFLOXACIN SENSITIVE <=2NITROFURANTOIN SENSITIVE <=32PIP/TAZOBAC SENSITIVE <=16TETRACYCLINE SENSITIVE <=4TOBRAMYCIN SENSITIVE <=4TRIMETH/SULFA SENSITIVE <=2/38 NOTE: NUMBERS DISPLAYED REPRESENT MINIMUM INHIBITORY CONCENTRATION (YANIRA) WHICH IS EXPRESSED IN MCG/ML. UNLESS OTHERWISE INDICATED, ALL TESTING PERFORMED ATCLINarchify PATHOLOGY [employer] [address] [place] [address] PRIVACY SPECIALIST: JOVANA HAQ M.D. CLIA NUMBER [id number] [place]. [id number], [id number] 00:00:00 Test Item Value Reference Range Interpretation Comments CULTURE, URINE (test SPECIMEN NUMBER: code = 04125) [id number] CULTURE, [id number] 00:00:00 Test Item Value Reference Range Interpretation Comments CULTURE, URINE (test SPECIMEN NUMBER: code = 74125) [id number] CULTURE, [id number] 00:00:00 Test Item Value Reference Range Interpretation Comments CULTURE, URINE (test SPECIMEN NUMBER: code = 48170) [id number] CULTURE, [id number] 00:00:00 Test Item Value Reference Range Interpretation Comments CULTURE, URINE (test SPECIMEN NUMBER: code = 46033) [id number] TSH, THIRD [id number] 00:00:00 Test Item Value Reference Range Interpretation Comments TSH, THIRD GENERATION (test >100.000 UIU/ML code = 2821) TSH, THIRD [id number] 00:00:00 Test Item Value Reference Range Interpretation Comments TSH, THIRD GENERATION (test >100.000 UIU/ML code = 2821) TSH, THIRD [id number] 00:00:00 Test Item Value Reference Range Interpretation Comments TSH, THIRD GENERATION (test >100.000 UIU/ML code = 2821) COMPREHENSIVE METABOLIC [id number] 00:00:00 Test Item Value Reference Range Interpretation Comments GLUCOSE (test code = 2217) 91 MG/DL BUN (test code = 2208) 4 MG/DL CREATININE (test code = 2214) 1.18 MG/DL eGFR (2020 CKD-EPI) (test code 59 ML/MIN/1.73 = 43410) CALC BUN/CREAT (test code = 3 RATIO 2235) SODIUM (test code = 2231) 140 MEQ/L POTASSIUM (test code = 2228) 3.8 MEQ/L CHLORIDE (test code = 2215) 100 MEQ/L CARBON DIOXIDE (test code = 27 MEQ/L 6) CALCIUM (test code = 2209) 9.5 MG/DL PROTEIN, TOTAL (test code = 7.6 G/DL 2228) ALBUMIN (test code = 2201) 4.5 G/DL CALC GLOBULIN (test code = 3.1 G/DL 2239) CALC A/G RATIO (test code = 1.5 RATIO 2234) BILIRUBIN, TOTAL (test code = 0.3 MG/DL 2206) ALKALINE PHOSPHATASE (test 71 U/L code = 2204) AST (test code = 2218) 19 U/L ALT (test code = 2219) 16 U/L COMPREHENSIVE METABOLIC [id number] 00:00:00 Test Item Value Reference Range Interpretation Comments GLUCOSE (test code = 2217) 91 MG/DL BUN (test code = 2208) 4 MG/DL CREATININE (test code = 2214) 1.18 MG/DL eGFR (2020 CKD-EPI) (test code 59 ML/MIN/1.73 = 10704) CALC BUN/CREAT (test code = 3 RATIO 2235) SODIUM (test code = 2231) 140 MEQ/L POTASSIUM (test code = 2228) 3.8 MEQ/L CHLORIDE (test code = 2215) 100 MEQ/L CARBON DIOXIDE (test code = 27 MEQ/L 2205) CALCIUM (test code = 2209) 9.5 MG/DL PROTEIN, TOTAL (test code = 7.6 G/DL 2228) ALBUMIN (test code = 2201) 4.5 G/DL CALC GLOBULIN (test code = 3.1 G/DL 2240) CALC A/G RATIO (test code = 1.5 RATIO 2234) BILIRUBIN, TOTAL (test code = 0.3 MG/DL 2206) ALKALINE PHOSPHATASE (test 71 U/L code = 2204) AST (test code = 2218) 19 U/L ALT (test code = 2219) 16 U/L CBC W/AUTO [id number] 00:00:00 Test Item Value Reference Range Interpretation Comments WBC (test code = 1001) 10.5 K/UL RBC (test code = 1002) 3.94 M/UL HEMOGLOBIN (test code = 1003) 12.6 G/DL HEMATOCRIT (test code = 1004) 38.0 % MCV (test code = 1005) 96.4 fL MCH (test code = 1006) 32.0 PG MCHC (test code = 1007) 33.2 G/DL RDW (test code = 1038) 14.4 % NEUTROPHILS (test code = 1008) 58.9 % LYMPHOCYTES (test code = 1010) 34.5 % MONOCYTES (test code = 1011) 4.5 % EOSINOPHILS (test code = 1012) 1.1 % BASOPHILS (test code = 1013) 0.8 % IMMATURE GRANULOCYTES (test 0.2 % code = 1036) NUCLEATED RBCS (test code = 0.0 /100WBC'S 1065) PLATELET COUNT (test code = 246 K/UL 1015) ABSOLUTE NEUTROPHILS (test code 6.20 K/UL = 1066) ABSOLUTE LYMPHOCYTES (test code 3.63 K/UL = 1067) ABSOLUTE MONOCYTES (test code = 0.47 K/UL 1068) ABSOLUTE EOSINOPHILS (test code 0.12 K/UL = 1040) ABSOLUTE BASOPHILS (test code = 0.08 K/UL 1069) ABS IMMATURE GRANULOCYTES (test 0.02 K/UL code = 1020) ABS NUCLEATED RBCS (test code = 0.00 K/UL 75303) CBC W/AUTO [id number] 00:00:00 Test Item Value Reference Range Interpretation Comments WBC (test code = 1001) 10.5 K/UL RBC (test code = 1002) 3.94 M/UL HEMOGLOBIN (test code = 1003) 12.6 G/DL HEMATOCRIT (test code = 1004) 38.0 % MCV (test code = 1005) 96.4 fL MCH (test code = 1006) 32.0 PG MCHC (test code = 1007) 33.2 G/DL RDW (test code = 1038) 14.4 % NEUTROPHILS (test code = 1008) 58.9 % LYMPHOCYTES (test code = 1010) 34.5 % MONOCYTES (test code = 1011) 4.5 % EOSINOPHILS (test code = 1012) 1.1 % BASOPHILS (test code = 1013) 0.8 % IMMATURE GRANULOCYTES (test 0.2 % code = 1036) NUCLEATED RBCS (test code = 0.0 /100WBC'S 1065) PLATELET COUNT (test code = 246 K/UL 1015) ABSOLUTE NEUTROPHILS (test code 6.20 K/UL = 1066) ABSOLUTE LYMPHOCYTES (test code 3.63 K/UL = 1067) ABSOLUTE MONOCYTES (test code = 0.47 K/UL 1068) ABSOLUTE EOSINOPHILS (test code 0.12 K/UL = 1040) ABSOLUTE BASOPHILS (test code = 0.08 K/UL 1069) ABS IMMATURE GRANULOCYTES (test 0.02 K/UL code = 1020) ABS NUCLEATED RBCS (test code = 0.00 K/UL 89019) CBC W/AUTO [id number] 00:00:00 Test Item Value Reference Range Interpretation Comments WBC (test code = 1001) 10.5 K/UL RBC (test code = 1002) 3.94 M/UL HEMOGLOBIN (test code = 1003) 12.6 G/DL HEMATOCRIT (test code = 1004) 38.0 % MCV (test code = 1005) 96.4 fL MCH (test code = 1006) 32.0 PG MCHC (test code = 1007) 33.2 G/DL RDW (test code = 1038) 14.4 % NEUTROPHILS (test code = 1008) 58.9 % LYMPHOCYTES (test code = 1010) 34.5 % MONOCYTES (test code = 1011) 4.5 % EOSINOPHILS (test code = 1012) 1.1 % BASOPHILS (test code = 1013) 0.8 % IMMATURE GRANULOCYTES (test 0.2 % code = 1036) NUCLEATED RBCS (test code = 0.0 /100WBC'S 1065) PLATELET COUNT (test code = 246 K/UL 1015) ABSOLUTE NEUTROPHILS (test code 6.20 K/UL = 1066) ABSOLUTE LYMPHOCYTES (test code 3.63 K/UL = 1067) ABSOLUTE MONOCYTES (test code = 0.47 K/UL 1068) ABSOLUTE EOSINOPHILS (test code 0.12 K/UL = 1040) ABSOLUTE BASOPHILS (test code = 0.08 K/UL 1069) ABS IMMATURE GRANULOCYTES (test 0.02 K/UL code = 1020) ABS NUCLEATED RBCS (test code = 0.00 K/UL 69132) LIPID [id number] 00:00:00 Test Item Value Reference Range Interpretation Comments CHOLESTEROL (test code = 2210) 269 MG/DL TRIGLYCERIDES (test code = 2232) 111 MG/DL HDL CHOLESTEROL (test code = 2220) 42 MG/DL CALC LDL CHOL (test code = 2237) 202 MG/DL RISK RATIO LDL/HDL (test code = 4.81 RATIO 2238) LIPID [id number] 00:00:00 Test Item Value Reference Range Interpretation Comments CHOLESTEROL (test code = 2210) 269 MG/DL TRIGLYCERIDES (test code = 2232) 111 MG/DL HDL CHOLESTEROL (test code = 2220) 42 MG/DL CALC LDL CHOL (test code = 2237) 202 MG/DL RISK RATIO LDL/HDL (test code = 4.81 RATIO 2238) TSH, THIRD [id number] 00:00:00 Test Item Value Reference Range Interpretation Comments TSH, THIRD GENERATION (test >100.000 UIU/ML code = 2821) COMPREHENSIVE METABOLIC [id number] 00:00:00 Test Item Value Reference Range Interpretation Comments GLUCOSE (test code = 2217) 91 MG/DL BUN (test code = 2208) 4 MG/DL CREATININE (test code = 2214) 1.18 MG/DL eGFR (2020 CKD-EPI) (test code 59 ML/MIN/1.73 = 57818) CALC BUN/CREAT (test code = 3 RATIO 2235) SODIUM (test code = 2231) 140 MEQ/L POTASSIUM (test code = 2228) 3.8 MEQ/L CHLORIDE (test code = 2215) 100 MEQ/L CARBON DIOXIDE (test code = 27 MEQ/L 220) CALCIUM (test code = 2209) 9.5 MG/DL PROTEIN, TOTAL (test code = 7.6 G/DL 2228) ALBUMIN (test code = 2201) 4.5 G/DL CALC GLOBULIN (test code = 3.1 G/DL 2240) CALC A/G RATIO (test code = 1.5 RATIO 2234) BILIRUBIN, TOTAL (test code = 0.3 MG/DL 2206) ALKALINE PHOSPHATASE (test 71 U/L code = 2204) AST (test code = 2218) 19 U/L ALT (test code = 2219) 16 U/L COMPREHENSIVE METABOLIC [id number] 00:00:00 Test Item Value Reference Range Interpretation Comments GLUCOSE (test code = 2217) 91 MG/DL BUN (test code = 2208) 4 MG/DL CREATININE (test code = 2214) 1.18 MG/DL eGFR (2020 CKD-EPI) (test code 59 ML/MIN/1.73 = 95752) CALC BUN/CREAT (test code = 3 RATIO 2235) SODIUM (test code = 2231) 140 MEQ/L POTASSIUM (test code = 2228) 3.8 MEQ/L CHLORIDE (test code = 2215) 100 MEQ/L CARBON DIOXIDE (test code = 27 MEQ/L 2206) CALCIUM (test code = 2209) 9.5 MG/DL PROTEIN, TOTAL (test code = 7.6 G/DL 2228) ALBUMIN (test code = 2201) 4.5 G/DL CALC GLOBULIN (test code = 3.1 G/DL 2240) CALC A/G RATIO (test code = 1.5 RATIO 223) BILIRUBIN, TOTAL (test code = 0.3 MG/DL 2206) ALKALINE PHOSPHATASE (test 71 U/L code = 2204) AST (test code = 2218) 19 U/L ALT (test code = 2219) 16 U/L TSH, THIRD [id number] 00:00:00 Test Item Value Reference Range Interpretation Comments TSH, THIRD GENERATION (test >100.000 UIU/ML code = 2821) TSH, THIRD [id number] 00:00:00 Test Item Value Reference Range Interpretation Comments TSH, THIRD GENERATION (test >100.000 UIU/ML code = 2821) TSH, THIRD [id number] 00:00:00 Test Item Value Reference Range Interpretation Comments TSH, THIRD GENERATION (test >100.000 UIU/ML code = 2821) COMPREHENSIVE METABOLIC [id number] 00:00:00 Test Item Value Reference Range Interpretation Comments GLUCOSE (test code = 2217) 91 MG/DL BUN (test code = 2208) 4 MG/DL CREATININE (test code = 2214) 1.18 MG/DL eGFR (2020 CKD-EPI) (test code 59 ML/MIN/1.73 = 64373) CALC BUN/CREAT (test code = 3 RATIO 2235) SODIUM (test code = 2231) 140 MEQ/L POTASSIUM (test code = 2228) 3.8 MEQ/L CHLORIDE (test code = 2215) 100 MEQ/L CARBON DIOXIDE (test code = 27 MEQ/L 2205) CALCIUM (test code = 2209) 9.5 MG/DL PROTEIN, TOTAL (test code = 7.6 G/DL 2228) ALBUMIN (test code = 2201) 4.5 G/DL CALC GLOBULIN (test code = 3.1 G/DL 2240) CALC A/G RATIO (test code = 1.5 RATIO 2234) BILIRUBIN, TOTAL (test code = 0.3 MG/DL 2206) ALKALINE PHOSPHATASE (test 71 U/L code = 2204) AST (test code = 2218) 19 U/L ALT (test code = 2219) 16 U/L COMPREHENSIVE METABOLIC [id number] 00:00:00 Test Item Value Reference Range Interpretation Comments GLUCOSE (test code = 2217) 91 MG/DL BUN (test code = 2208) 4 MG/DL CREATININE (test code = 2214) 1.18 MG/DL eGFR (2020 CKD-EPI) (test code 59 ML/MIN/1.73 = 36897) CALC BUN/CREAT (test code = 3 RATIO 2235) SODIUM (test code = 2231) 140 MEQ/L POTASSIUM (test code = 2228) 3.8 MEQ/L CHLORIDE (test code = 2215) 100 MEQ/L CARBON DIOXIDE (test code = 27 MEQ/L 2205) CALCIUM (test code = 2209) 9.5 MG/DL PROTEIN, TOTAL (test code = 7.6 G/DL 2228) ALBUMIN (test code = 2201) 4.5 G/DL CALC GLOBULIN (test code = 3.1 G/DL 2239) CALC A/G RATIO (test code = 1.5 RATIO 2233) BILIRUBIN, TOTAL (test code = 0.3 MG/DL 2206) ALKALINE PHOSPHATASE (test 71 U/L code = 2204) AST (test code = 2218) 19 U/L ALT (test code = 2219) 16 U/L CBC W/AUTO [id number] 00:00:00 Test Item Value Reference Range Interpretation Comments WBC (test code = 1001) 10.5 K/UL RBC (test code = 1002) 3.94 M/UL HEMOGLOBIN (test code = 1003) 12.6 G/DL HEMATOCRIT (test code = 1004) 38.0 % MCV (test code = 1005) 96.4 fL MCH (test code = 1006) 32.0 PG MCHC (test code = 1007) 33.2 G/DL RDW (test code = 1038) 14.4 % NEUTROPHILS (test code = 1008) 58.9 % LYMPHOCYTES (test code = 1010) 34.5 % MONOCYTES (test code = 1011) 4.5 % EOSINOPHILS (test code = 1012) 1.1 % BASOPHILS (test code = 1013) 0.8 % IMMATURE GRANULOCYTES (test 0.2 % code = 1036) NUCLEATED RBCS (test code = 0.0 /100WBC'S 1065) PLATELET COUNT (test code = 246 K/UL 1015) ABSOLUTE NEUTROPHILS (test code 6.20 K/UL = 1066) ABSOLUTE LYMPHOCYTES (test code 3.63 K/UL = 1067) ABSOLUTE MONOCYTES (test code = 0.47 K/UL 1068) ABSOLUTE EOSINOPHILS (test code 0.12 K/UL = 1040) ABSOLUTE BASOPHILS (test code = 0.08 K/UL 1069) ABS IMMATURE GRANULOCYTES (test 0.02 K/UL code = 1020) ABS NUCLEATED RBCS (test code = 0.00 K/UL 97950) CBC W/AUTO [id number] 00:00:00 Test Item Value Reference Range Interpretation Comments WBC (test code = 1001) 10.5 K/UL RBC (test code = 1002) 3.94 M/UL HEMOGLOBIN (test code = 1003) 12.6 G/DL HEMATOCRIT (test code = 1004) 38.0 % MCV (test code = 1005) 96.4 fL MCH (test code = 1006) 32.0 PG MCHC (test code = 1007) 33.2 G/DL RDW (test code = 1038) 14.4 % NEUTROPHILS (test code = 1008) 58.9 % LYMPHOCYTES (test code = 1010) 34.5 % MONOCYTES (test code = 1011) 4.5 % EOSINOPHILS (test code = 1012) 1.1 % BASOPHILS (test code = 1013) 0.8 % IMMATURE GRANULOCYTES (test 0.2 % code = 1036) NUCLEATED RBCS (test code = 0.0 /100WBC'S 1065) PLATELET COUNT (test code = 246 K/UL 1015) ABSOLUTE NEUTROPHILS (test code 6.20 K/UL = 1066) ABSOLUTE LYMPHOCYTES (test code 3.63 K/UL = 1067) ABSOLUTE MONOCYTES (test code = 0.47 K/UL 1068) ABSOLUTE EOSINOPHILS (test code 0.12 K/UL = 1040) ABSOLUTE BASOPHILS (test code = 0.08 K/UL 1069) ABS IMMATURE GRANULOCYTES (test 0.02 K/UL code = 1020) ABS NUCLEATED RBCS (test code = 0.00 K/UL 84153) CBC W/AUTO [id number] 00:00:00 Test Item Value Reference Range Interpretation Comments WBC (test code = 1001) 10.5 K/UL RBC (test code = 1002) 3.94 M/UL HEMOGLOBIN (test code = 1003) 12.6 G/DL HEMATOCRIT (test code = 1004) 38.0 % MCV (test code = 1005) 96.4 fL MCH (test code = 1006) 32.0 PG MCHC (test code = 1007) 33.2 G/DL RDW (test code = 1038) 14.4 % NEUTROPHILS (test code = 1008) 58.9 % LYMPHOCYTES (test code = 1010) 34.5 % MONOCYTES (test code = 1011) 4.5 % EOSINOPHILS (test code = 1012) 1.1 % BASOPHILS (test code = 1013) 0.8 % IMMATURE GRANULOCYTES (test 0.2 % code = 1036) NUCLEATED RBCS (test code = 0.0 /100WBC'S 1065) PLATELET COUNT (test code = 246 K/UL 1015) ABSOLUTE NEUTROPHILS (test code 6.20 K/UL = 1066) ABSOLUTE LYMPHOCYTES (test code 3.63 K/UL = 1067) ABSOLUTE MONOCYTES (test code = 0.47 K/UL 1068) ABSOLUTE EOSINOPHILS (test code 0.12 K/UL = 1040) ABSOLUTE BASOPHILS (test code = 0.08 K/UL 1069) ABS IMMATURE GRANULOCYTES (test 0.02 K/UL code = 1020) ABS NUCLEATED RBCS (test code = 0.00 K/UL 52466) CBC W/AUTO [id number] 00:00:00 Test Item Value Reference Range Interpretation Comments WBC (test code = 1001) 10.5 K/UL RBC (test code = 1002) 3.94 M/UL HEMOGLOBIN (test code = 1003) 12.6 G/DL HEMATOCRIT (test code = 1004) 38.0 % MCV (test code = 1005) 96.4 fL MCH (test code = 1006) 32.0 PG MCHC (test code = 1007) 33.2 G/DL RDW (test code = 1038) 14.4 % NEUTROPHILS (test code = 1008) 58.9 % LYMPHOCYTES (test code = 1010) 34.5 % MONOCYTES (test code = 1011) 4.5 % EOSINOPHILS (test code = 1012) 1.1 % BASOPHILS (test code = 1013) 0.8 % IMMATURE GRANULOCYTES (test 0.2 % code = 1036) NUCLEATED RBCS (test code = 0.0 /100WBC'S 1065) PLATELET COUNT (test code = 246 K/UL 1015) ABSOLUTE NEUTROPHILS (test code 6.20 K/UL = 1066) ABSOLUTE LYMPHOCYTES (test code 3.63 K/UL = 1067) ABSOLUTE MONOCYTES (test code = 0.47 K/UL 1068) ABSOLUTE EOSINOPHILS (test code 0.12 K/UL = 1040) ABSOLUTE BASOPHILS (test code = 0.08 K/UL 1069) ABS IMMATURE GRANULOCYTES (test 0.02 K/UL code = 1020) ABS NUCLEATED RBCS (test code = 0.00 K/UL 90192) LIPID [id number] 00:00:00 Test Item Value Reference Range Interpretation Comments CHOLESTEROL (test code = 2210) 269 MG/DL TRIGLYCERIDES (test code = 2232) 111 MG/DL HDL CHOLESTEROL (test code = 2220) 42 MG/DL CALC LDL CHOL (test code = 2237) 202 MG/DL RISK RATIO LDL/HDL (test code = 4.81 RATIO 2238) LIPID [id number] 00:00:00 Test Item Value Reference Range Interpretation Comments CHOLESTEROL (test code = 2210) 269 MG/DL TRIGLYCERIDES (test code = 2232) 111 MG/DL HDL CHOLESTEROL (test code = 2220) 42 MG/DL CALC LDL CHOL (test code = 2237) 202 MG/DL RISK RATIO LDL/HDL (test code = 4.81 RATIO 2238) CBC W/AUTO [id number] 00:00:00 Test Item Value Reference Range Interpretation Comments WBC (test code = 1001) 10.5 K/UL RBC (test code = 1002) 3.94 M/UL HEMOGLOBIN (test code = 1003) 12.6 G/DL HEMATOCRIT (test code = 1004) 38.0 % MCV (test code = 1005) 96.4 fL MCH (test code = 1006) 32.0 PG MCHC (test code = 1007) 33.2 G/DL RDW (test code = 1038) 14.4 % NEUTROPHILS (test code = 1008) 58.9 % LYMPHOCYTES (test code = 1010) 34.5 % MONOCYTES (test code = 1011) 4.5 % EOSINOPHILS (test code = 1012) 1.1 % BASOPHILS (test code = 1013) 0.8 % IMMATURE GRANULOCYTES (test 0.2 % code = 1036) NUCLEATED RBCS (test code = 0.0 /100WBC'S 1065) PLATELET COUNT (test code = 246 K/UL 1015) ABSOLUTE NEUTROPHILS (test code 6.20 K/UL = 1066) ABSOLUTE LYMPHOCYTES (test code 3.63 K/UL = 1067) ABSOLUTE MONOCYTES (test code = 0.47 K/UL 1068) ABSOLUTE EOSINOPHILS (test code 0.12 K/UL = 1040) ABSOLUTE BASOPHILS (test code = 0.08 K/UL 1069) ABS IMMATURE GRANULOCYTES (test 0.02 K/UL code = 1020) ABS NUCLEATED RBCS (test code = 0.00 K/UL 87815) CBC W/AUTO [id number] 00:00:00 Test Item Value Reference Range Interpretation Comments WBC (test code = 1001) 10.5 K/UL RBC (test code = 1002) 3.94 M/UL HEMOGLOBIN (test code = 1003) 12.6 G/DL HEMATOCRIT (test code = 1004) 38.0 % MCV (test code = 1005) 96.4 fL MCH (test code = 1006) 32.0 PG MCHC (test code = 1007) 33.2 G/DL RDW (test code = 1038) 14.4 % NEUTROPHILS (test code = 1008) 58.9 % LYMPHOCYTES (test code = 1010) 34.5 % MONOCYTES (test code = 1011) 4.5 % EOSINOPHILS (test code = 1012) 1.1 % BASOPHILS (test code = 1013) 0.8 % IMMATURE GRANULOCYTES (test 0.2 % code = 1036) NUCLEATED RBCS (test code = 0.0 /100WBC'S 1065) PLATELET COUNT (test code = 246 K/UL 1015) ABSOLUTE NEUTROPHILS (test code 6.20 K/UL = 1066) ABSOLUTE LYMPHOCYTES (test code 3.63 K/UL = 1067) ABSOLUTE MONOCYTES (test code = 0.47 K/UL 1068) ABSOLUTE EOSINOPHILS (test code 0.12 K/UL = 1040) ABSOLUTE BASOPHILS (test code = 0.08 K/UL 1069) ABS IMMATURE GRANULOCYTES (test 0.02 K/UL code = 1020) ABS NUCLEATED RBCS (test code = 0.00 K/UL 60776) LIPID [id number] 00:00:00 Test Item Value Reference Range Interpretation Comments CHOLESTEROL (test code = 2210) 269 MG/DL TRIGLYCERIDES (test code = 2232) 111 MG/DL HDL CHOLESTEROL (test code = 2220) 42 MG/DL CALC LDL CHOL (test code = 2237) 202 MG/DL RISK RATIO LDL/HDL (test code = 4.81 RATIO 2238) TSH, THIRD [id number] 00:00:00 Test Item Value Reference Range Interpretation Comments TSH, THIRD GENERATION (test >100.000 UIU/ML code = 2821) TSH, THIRD [id number] 00:00:00 Test Item Value Reference Range Interpretation Comments TSH, THIRD GENERATION (test >100.000 UIU/ML code = 2821) TSH, THIRD [id number] 00:00:00 Test Item Value Reference Range Interpretation Comments TSH, THIRD GENERATION (test >100.000 UIU/ML code = 2821) COMPREHENSIVE METABOLIC [id number] 00:00:00 Test Item Value Reference Range Interpretation Comments GLUCOSE (test code = 2217) 91 MG/DL BUN (test code = 2208) 4 MG/DL CREATININE (test code = 2214) 1.18 MG/DL eGFR (2020 CKD-EPI) (test code 59 ML/MIN/1.73 = 57359) CALC BUN/CREAT (test code = 3 RATIO 2235) SODIUM (test code = 2231) 140 MEQ/L POTASSIUM (test code = 2228) 3.8 MEQ/L CHLORIDE (test code = 2215) 100 MEQ/L CARBON DIOXIDE (test code = 27 MEQ/L 2205) CALCIUM (test code = 2209) 9.5 MG/DL PROTEIN, TOTAL (test code = 7.6 G/DL 2228) ALBUMIN (test code = 2201) 4.5 G/DL CALC GLOBULIN (test code = 3.1 G/DL 2239) CALC A/G RATIO (test code = 1.5 RATIO 2234) BILIRUBIN, TOTAL (test code = 0.3 MG/DL 2206) ALKALINE PHOSPHATASE (test 71 U/L code = 2204) AST (test code = 2218) 19 U/L ALT (test code = 2219) 16 U/L COMPREHENSIVE METABOLIC [id number] 00:00:00 Test Item Value Reference Range Interpretation Comments GLUCOSE (test code = 2217) 91 MG/DL BUN (test code = 2208) 4 MG/DL CREATININE (test code = 2214) 1.18 MG/DL eGFR (2020 CKD-EPI) (test code 59 ML/MIN/1.73 = 41487) CALC BUN/CREAT (test code = 3 RATIO 2235) SODIUM (test code = 2231) 140 MEQ/L POTASSIUM (test code = 2228) 3.8 MEQ/L CHLORIDE (test code = 2215) 100 MEQ/L CARBON DIOXIDE (test code = 27 MEQ/L 2205) CALCIUM (test code = 2209) 9.5 MG/DL PROTEIN, TOTAL (test code = 7.6 G/DL 2228) ALBUMIN (test code = 2201) 4.5 G/DL CALC GLOBULIN (test code = 3.1 G/DL 2239) CALC A/G RATIO (test code = 1.5 RATIO 2233) BILIRUBIN, TOTAL (test code = 0.3 MG/DL 2206) ALKALINE PHOSPHATASE (test 71 U/L code = 2204) AST (test code = 2218) 19 U/L ALT (test code = 2219) 16 U/L CBC W/AUTO [id number] 00:00:00 Test Item Value Reference Range Interpretation Comments WBC (test code = 1001) 10.5 K/UL RBC (test code = 1002) 3.94 M/UL HEMOGLOBIN (test code = 1003) 12.6 G/DL HEMATOCRIT (test code = 1004) 38.0 % MCV (test code = 1005) 96.4 fL MCH (test code = 1006) 32.0 PG MCHC (test code = 1007) 33.2 G/DL RDW (test code = 1038) 14.4 % NEUTROPHILS (test code = 1008) 58.9 % LYMPHOCYTES (test code = 1010) 34.5 % MONOCYTES (test code = 1011) 4.5 % EOSINOPHILS (test code = 1012) 1.1 % BASOPHILS (test code = 1013) 0.8 % IMMATURE GRANULOCYTES (test 0.2 % code = 1036) NUCLEATED RBCS (test code = 0.0 /100WBC'S 1065) PLATELET COUNT (test code = 246 K/UL 1015) ABSOLUTE NEUTROPHILS (test code 6.20 K/UL = 1066) ABSOLUTE LYMPHOCYTES (test code 3.63 K/UL = 1067) ABSOLUTE MONOCYTES (test code = 0.47 K/UL 1068) ABSOLUTE EOSINOPHILS (test code 0.12 K/UL = 1040) ABSOLUTE BASOPHILS (test code = 0.08 K/UL 1069) ABS IMMATURE GRANULOCYTES (test 0.02 K/UL code = 1020) ABS NUCLEATED RBCS (test code = 0.00 K/UL 29022) CBC W/AUTO [id number] 00:00:00 Test Item Value Reference Range Interpretation Comments WBC (test code = 1001) 10.5 K/UL RBC (test code = 1002) 3.94 M/UL HEMOGLOBIN (test code = 1003) 12.6 G/DL HEMATOCRIT (test code = 1004) 38.0 % MCV (test code = 1005) 96.4 fL MCH (test code = 1006) 32.0 PG MCHC (test code = 1007) 33.2 G/DL RDW (test code = 1038) 14.4 % NEUTROPHILS (test code = 1008) 58.9 % LYMPHOCYTES (test code = 1010) 34.5 % MONOCYTES (test code = 1011) 4.5 % EOSINOPHILS (test code = 1012) 1.1 % BASOPHILS (test code = 1013) 0.8 % IMMATURE GRANULOCYTES (test 0.2 % code = 1036) NUCLEATED RBCS (test code = 0.0 /100WBC'S 1065) PLATELET COUNT (test code = 246 K/UL 1015) ABSOLUTE NEUTROPHILS (test code 6.20 K/UL = 1066) ABSOLUTE LYMPHOCYTES (test code 3.63 K/UL = 1067) ABSOLUTE MONOCYTES (test code = 0.47 K/UL 1068) ABSOLUTE EOSINOPHILS (test code 0.12 K/UL = 1040) ABSOLUTE BASOPHILS (test code = 0.08 K/UL 1069) ABS IMMATURE GRANULOCYTES (test 0.02 K/UL code = 1020) ABS NUCLEATED RBCS (test code = 0.00 K/UL 18528) LIPID [id number] 00:00:00 Test Item Value Reference Range Interpretation Comments CHOLESTEROL (test code = 2210) 269 MG/DL TRIGLYCERIDES (test code = 2232) 111 MG/DL HDL CHOLESTEROL (test code = 2220) 42 MG/DL CALC LDL CHOL (test code = 2237) 202 MG/DL RISK RATIO LDL/HDL (test code = 4.81 RATIO 2238) CBC W/AUTO [id number] 00:00:00 Test Item Value Reference Range Interpretation Comments WBC (test code = 1001) 10.5 K/UL RBC (test code = 1002) 3.94 M/UL HEMOGLOBIN (test code = 1003) 12.6 G/DL HEMATOCRIT (test code = 1004) 38.0 % MCV (test code = 1005) 96.4 fL MCH (test code = 1006) 32.0 PG MCHC (test code = 1007) 33.2 G/DL RDW (test code = 1038) 14.4 % NEUTROPHILS (test code = 1008) 58.9 % LYMPHOCYTES (test code = 1010) 34.5 % MONOCYTES (test code = 1011) 4.5 % EOSINOPHILS (test code = 1012) 1.1 % BASOPHILS (test code = 1013) 0.8 % IMMATURE GRANULOCYTES (test 0.2 % code = 1036) NUCLEATED RBCS (test code = 0.0 /100WBC'S 1065) PLATELET COUNT (test code = 246 K/UL 1015) ABSOLUTE NEUTROPHILS (test code 6.20 K/UL = 1066) ABSOLUTE LYMPHOCYTES (test code 3.63 K/UL = 1067) ABSOLUTE MONOCYTES (test code = 0.47 K/UL 1068) ABSOLUTE EOSINOPHILS (test code 0.12 K/UL = 1040) ABSOLUTE BASOPHILS (test code = 0.08 K/UL 1069) ABS IMMATURE GRANULOCYTES (test 0.02 K/UL code = 1020) ABS NUCLEATED RBCS (test code = 0.00 K/UL 92801) LIPID [id number] 00:00:00 Test Item Value Reference Range Interpretation Comments CHOLESTEROL (test code = 2210) 269 MG/DL TRIGLYCERIDES (test code = 2232) 111 MG/DL HDL CHOLESTEROL (test code = 2220) 42 MG/DL CALC LDL CHOL (test code = 2237) 202 MG/DL RISK RATIO LDL/HDL (test code = 4.81 RATIO 2238) LIPID [id number] 00:00:00 Test Item Value Reference Range Interpretation Comments CHOLESTEROL (test code = 2210) 269 MG/DL TRIGLYCERIDES (test code = 2232) 111 MG/DL HDL CHOLESTEROL (test code = 2220) 42 MG/DL CALC LDL CHOL (test code = 2237) 202 MG/DL RISK RATIO LDL/HDL (test code = 4.81 RATIO 2238) TSH, THIRD [id number] 00:00:00 Test Item Value Reference Range Interpretation Comments TSH, THIRD GENERATION (test >100.000 UIU/ML code = 2821) TSH, THIRD [id number] 00:00:00 Test Item Value Reference Range Interpretation Comments TSH, THIRD GENERATION (test >100.000 UIU/ML code = 2821) TSH, THIRD [id number] 00:00:00 Test Item Value Reference Range Interpretation Comments TSH, THIRD GENERATION (test >100.000 UIU/ML code = 2821) COMPREHENSIVE METABOLIC [id number] 00:00:00 Test Item Value Reference Range Interpretation Comments GLUCOSE (test code = 2217) 91 MG/DL BUN (test code = 2208) 4 MG/DL CREATININE (test code = 2214) 1.18 MG/DL eGFR (2020 CKD-EPI) (test code 59 ML/MIN/1.73 = 90650) CALC BUN/CREAT (test code = 3 RATIO 2235) SODIUM (test code = 2231) 140 MEQ/L POTASSIUM (test code = 2228) 3.8 MEQ/L CHLORIDE (test code = 2215) 100 MEQ/L CARBON DIOXIDE (test code = 27 MEQ/L 2205) CALCIUM (test code = 2209) 9.5 MG/DL PROTEIN, TOTAL (test code = 7.6 G/DL 2228) ALBUMIN (test code = 2201) 4.5 G/DL CALC GLOBULIN (test code = 3.1 G/DL 2240) CALC A/G RATIO (test code = 1.5 RATIO 2234) BILIRUBIN, TOTAL (test code = 0.3 MG/DL 2206) ALKALINE PHOSPHATASE (test 71 U/L code = 2204) AST (test code = 2218) 19 U/L ALT (test code = 2219) 16 U/L COMPREHENSIVE METABOLIC [id number] 00:00:00 Test Item Value Reference Range Interpretation Comments GLUCOSE (test code = 2217) 91 MG/DL BUN (test code = 2208) 4 MG/DL CREATININE (test code = 2214) 1.18 MG/DL eGFR (2020 CKD-EPI) (test code 59 ML/MIN/1.73 = 97535) CALC BUN/CREAT (test code = 3 RATIO 2235) SODIUM (test code = 2231) 140 MEQ/L POTASSIUM (test code = 2228) 3.8 MEQ/L CHLORIDE (test code = 2215) 100 MEQ/L CARBON DIOXIDE (test code = 27 MEQ/L 2205) CALCIUM (test code = 2209) 9.5 MG/DL PROTEIN, TOTAL (test code = 7.6 G/DL 222) ALBUMIN (test code = 2201) 4.5 G/DL CALC GLOBULIN (test code = 3.1 G/DL 2240) CALC A/G RATIO (test code = 1.5 RATIO 2234) BILIRUBIN, TOTAL (test code = 0.3 MG/DL 220) ALKALINE PHOSPHATASE (test 71 U/L code = 2204) AST (test code = 2218) 19 U/L ALT (test code = 2219) 16 U/L CBC W/AUTO [id number] 00:00:00 Test Item Value Reference Range Interpretation Comments WBC (test code = 1001) 10.5 K/UL RBC (test code = 1002) 3.94 M/UL HEMOGLOBIN (test code = 1003) 12.6 G/DL HEMATOCRIT (test code = 1004) 38.0 % MCV (test code = 1005) 96.4 fL MCH (test code = 1006) 32.0 PG MCHC (test code = 1007) 33.2 G/DL RDW (test code = 1038) 14.4 % NEUTROPHILS (test code = 1008) 58.9 % LYMPHOCYTES (test code = 1010) 34.5 % MONOCYTES (test code = 1011) 4.5 % EOSINOPHILS (test code = 1012) 1.1 % BASOPHILS (test code = 1013) 0.8 % IMMATURE GRANULOCYTES (test 0.2 % code = 1036) NUCLEATED RBCS (test code = 0.0 /100WBC'S 1065) PLATELET COUNT (test code = 246 K/UL 1015) ABSOLUTE NEUTROPHILS (test code 6.20 K/UL = 1066) ABSOLUTE LYMPHOCYTES (test code 3.63 K/UL = 1067) ABSOLUTE MONOCYTES (test code = 0.47 K/UL 1068) ABSOLUTE EOSINOPHILS (test code 0.12 K/UL = 1040) ABSOLUTE BASOPHILS (test code = 0.08 K/UL 1069) ABS IMMATURE GRANULOCYTES (test 0.02 K/UL code = 1020) ABS NUCLEATED RBCS (test code = 0.00 K/UL 39568) CBC W/AUTO [id number] 00:00:00 Test Item Value Reference Range Interpretation Comments WBC (test code = 1001) 10.5 K/UL RBC (test code = 1002) 3.94 M/UL HEMOGLOBIN (test code = 1003) 12.6 G/DL HEMATOCRIT (test code = 1004) 38.0 % MCV (test code = 1005) 96.4 fL MCH (test code = 1006) 32.0 PG MCHC (test code = 1007) 33.2 G/DL RDW (test code = 1038) 14.4 % NEUTROPHILS (test code = 1008) 58.9 % LYMPHOCYTES (test code = 1010) 34.5 % MONOCYTES (test code = 1011) 4.5 % EOSINOPHILS (test code = 1012) 1.1 % BASOPHILS (test code = 1013) 0.8 % IMMATURE GRANULOCYTES (test 0.2 % code = 1036) NUCLEATED RBCS (test code = 0.0 /100WBC'S 1065) PLATELET COUNT (test code = 246 K/UL 1015) ABSOLUTE NEUTROPHILS (test code 6.20 K/UL = 1066) ABSOLUTE LYMPHOCYTES (test code 3.63 K/UL = 1067) ABSOLUTE MONOCYTES (test code = 0.47 K/UL 1068) ABSOLUTE EOSINOPHILS (test code 0.12 K/UL = 1040) ABSOLUTE BASOPHILS (test code = 0.08 K/UL 1069) ABS IMMATURE GRANULOCYTES (test 0.02 K/UL code = 1020) ABS NUCLEATED RBCS (test code = 0.00 K/UL 02554) CBC W/AUTO [id number] 00:00:00 Test Item Value Reference Range Interpretation Comments WBC (test code = 1001) 10.5 K/UL RBC (test code = 1002) 3.94 M/UL HEMOGLOBIN (test code = 1003) 12.6 G/DL HEMATOCRIT (test code = 1004) 38.0 % MCV (test code = 1005) 96.4 fL MCH (test code = 1006) 32.0 PG MCHC (test code = 1007) 33.2 G/DL RDW (test code = 1038) 14.4 % NEUTROPHILS (test code = 1008) 58.9 % LYMPHOCYTES (test code = 1010) 34.5 % MONOCYTES (test code = 1011) 4.5 % EOSINOPHILS (test code = 1012) 1.1 % BASOPHILS (test code = 1013) 0.8 % IMMATURE GRANULOCYTES (test 0.2 % code = 1036) NUCLEATED RBCS (test code = 0.0 /100WBC'S 1065) PLATELET COUNT (test code = 246 K/UL 1015) ABSOLUTE NEUTROPHILS (test code 6.20 K/UL = 1066) ABSOLUTE LYMPHOCYTES (test code 3.63 K/UL = 1067) ABSOLUTE MONOCYTES (test code = 0.47 K/UL 1068) ABSOLUTE EOSINOPHILS (test code 0.12 K/UL = 1040) ABSOLUTE BASOPHILS (test code = 0.08 K/UL 1069) ABS IMMATURE GRANULOCYTES (test 0.02 K/UL code = 1020) ABS NUCLEATED RBCS (test code = 0.00 K/UL 05747) LIPID [id number] 00:00:00 Test Item Value Reference Range Interpretation Comments CHOLESTEROL (test code = 2210) 269 MG/DL TRIGLYCERIDES (test code = 2232) 111 MG/DL HDL CHOLESTEROL (test code = 2220) 42 MG/DL CALC LDL CHOL (test code = 2237) 202 MG/DL RISK RATIO LDL/HDL (test code = 4.81 RATIO 2238) LIPID [id number] 00:00:00 Test Item Value Reference Range Interpretation Comments CHOLESTEROL (test code = 2210) 269 MG/DL TRIGLYCERIDES (test code = 2232) 111 MG/DL HDL CHOLESTEROL (test code = 2220) 42 MG/DL CALC LDL CHOL (test code = 2237) 202 MG/DL RISK RATIO LDL/HDL (test code = 4.81 RATIO 2238) TSH, THIRD [id number] 00:00:00 Test Item Value Reference Range Interpretation Comments TSH, THIRD GENERATION (test >100.000 UIU/ML code = 2821) TSH, THIRD [id number] 00:00:00 Test Item Value Reference Range Interpretation Comments TSH, THIRD GENERATION (test >100.000 UIU/ML code = 2821) [id number] 04:33:00 Test Item Value Reference Range Interpretation Comments APPEARANCE (test code = Clear Clear 2976284077) COLOR (test code = Yellow Yellow 3385057438) PH (test code = 4.8-8.0 5627063556) SP GRAVITY (test code = 1.003-1.030 H 5948586598) GLU U QUAL (test code = Normal Normal 5485392466) BLOOD (test code = Negative Negative 4392054067) KETONES (test code = Negative Negative 3036439134) PROTEIN (test code = Negative Negative 2887-8) UROBILIN (test code = Normal Normal 9565322681) BILIRUBIN (test code = Negative Negative 2607646097) NITRITE (test code = Negative Negative 8661784014) LEUK VY (test code = Negative Negative 9096779619) RBC/HPF (test code = See_Comment [Autom ated message] 1312846008) The system Purveyour generated this result transmitted ref erence range: 0 - 3 HP F. The reference range was not used to int erpret this result as normal/abnormal . WBC/HPF (test code = <1 See_Comment [Autom ated message] 3709927396) The system Purveyour generated this result transmitted ref erence range: 0 - 5 HP F. The reference range was not used to int erpret this result as normal/abnormal . BACTERIA (test code = Few Negative A 0034792462) SQ EPITH (test code = <1 HPF 6776336515) Lab Interpretation (test Abnormal code = 14534-0) [facility] [id number] 02:56:04Impression: 1. Patchy ground glass opacities, predominating [...] 0 05/30/2020 8:57 PM CSTOrdering Physician: JANENE Wharton MEDINAClinical history: Pulmonary embolus suspected, with intermediateprobability. Positive [...] in appearance.4. Cholecystect rina.RL: 460End of Report [facility] 1 [id number] 02:20:50 Impression: No acute abnormalities evident. RL: [...] evident.IMPRESSIONImpression:No acute abnormalities evident.RL: 460End of Report [facility] [id number] 01:29:00 Test Item Value Reference Range Interpretation Comments POCT PREG (test code = Hysterectomy HX of Hysterectomy 1605) Lab Interpretation Normal (test code = 02811-6) [facility] (ID NOW RAPID TESTING)2020-05-31 01:23:00 Test Item Value Reference Range Interpretation Comments SARS-CoV-2 Rapid ID NOW Not Detected Not Detected (test code = 74009-6) JASMEET (test code = JASMEET) ID NOW COVID-19 Assay is an isothermal nucleic acid amplification test intended for the qualitative detection of nucleic acid from SARS-CoV-2 viral RNA in nasopharyngeal ([employer]) specimens. It is used under Emergency Use [...] indicated. Lab Interpretation Normal (test code = 36819-9) [facility] [id number] 00:41:00 Test Item Value Reference Range Interpretation Comments TROPONIN I (test <0.012 See_Comment [Automated code = 2554880468) message] The system which generated this result [...] ? Lab Interpretation Normal (test code = 56490-4) [facility] (31973)2020-05-31 00:32:00 Test Item Value Reference Range Interpretation Comments NA (test code = 138 mmol/L 135-145 1015724487) K (test code = 4.0 mmol/L 3.5-5 1019292071) CL (test code = 101 mmol/L 98-108 8641736495) CO2 TOTAL (test code = 27 mmol/L 23-31 3143092246) AGAP (test code = 2-16 9443410658) BUN (test code = 5 mg/dL 7-23 L 7429507741) GLUCOSE (test code = 136 mg/dL 70-110 H 1296172562) CREATININE (test code = 0.56 mg/dL 0.5-1.04 2933248833) TOTAL BILI (test code = 0.4 mg/dL 0.1-1.8 7121388227) CALCIUM (test code = 9.0 mg/dL 8.6-10.6 5065382221) T PROTEIN (test code = 8.3 g/dL 6.3-8.2 H 6330392056) ALBUMIN (test code = 4.6 g/dL 3.5-5 0000100096) ALK PHOS (test code = 93 U/L 34-122 7058269222) ALTv (test code = 21 U/L 5-35 1742-6) AST(SGOT) (test code = 25 U/L 13-40 5879830576) eGFR Calculation mL/min/1.73m2 (Non-) (test code = 8926476539) eGFR Calculation mL/min/1.73m2 () (test code = 2236705318) JASMEET (test code = JASMEET) Association of [...] tests). Lab Interpretation Abnormal (test code = 19728-2) [facility]-[id number] 00:30:00 Test Item Value Reference Interpretation Comments Range D-DIMER (test code = See_Comment H [Autom ated 4614112398) message] The system which generated this result [...] diagnosis. Lab Interpretation Abnormal (test code = 66223-0) [facility] WITH [id number] 00:13:00 Test Item Value Reference Range Interpretation [...] RDW-SD (test code = 40.5 fL 39-49.9 35534-6) RDW-CV (test code = 12.2 % 12-15.5 788-0) PLT (test code = See_Comment [Automated 777-3) message] The system which generated this result transmit justino reference range : 166 - 358 10*3/ ?L. The reference range was not u sed to interpret th is result as normal/abnormal . MPV (test code = 9.4 fL 9.5-12.9 L 72935-0) NRBC/100 WBC (test See_Comment [Automat ed code = 9359761615) message] The system which generated this result transmit justino reference range : 0.0 - 10.0 /100 WBCs. The reference range was not used to interpret this result as normal/abnormal . NRBC x10^3 (test code <0.01 See_Comment [Auto mated = 3795005365) message] The system which generated this result transmit justino reference range : 10*3/?L. The reference range was not used to interpret this result as normal/abnormal . GRAN MAT (NEUT) % 93.5 % (test code = 770-8) IMM GRAN % (test code 0.80 % = 8042284604) LYMPH % (test code = 4.8 % 736-9) MONO % (test code = 0.6 % 5905-5) EOS % (test code = 0.1 % 713-8) BASO % (test code = 0.2 % 706-2) GRAN MAT x10^3(ANC) 13.73 10*3/uL 1.88-7.09 H (test code = 0579591756) IMM GRAN x10^3 (test 0.12 10*3/uL 0-0.06 H code = 6255443393) LYMPH x10^3 (test code 0.71 10*3/uL 1.32-3.29 L = 731-0) MONO x10^3 (test code 0.09 10*3/uL 0.33-0.92 L = 742-7) EOS x10^3 (test code = <0.03 0.03-0.39 L 711-2) BASO x10^3 (test code 0.03 10*3/uL 0.01-0.07 = 704-7) Lab Interpretation Abnormal (test code = 13920-4) [facility]
--- NOTE | 2022-06-17 15:47 | RAD REPORT ---
EXAM DESCRIPTION: US - Transvaginal Study Probe - 06/17/2022 3:32 pm CLINICAL HISTORY: ABD PAIN COMPARISON: Pelvis Complete dated 03/14/2022 TECHNIQUE: Endovaginal sonography was performed. FINDINGS: Uterus is absent. Bladder is contracted around a Hernandez catheter. Normal size right ovary is identified containing variably sized cysts or follicles. Largest at 15 mm is partially involuted. Doppler evaluation shows blood flow within the right ovarian stroma. No right adnexal abnormality. No left adnexal abnormality seen. Left ovary was not identifiable and may be obscured by bowel, displ aced outside of the pelvic ultrasound [id number] to the hysterectomy or could be surgically absent . IMPRESSION: Status post hysterectomy with the right ovary showing no suspicious finding. Nonvisualization of the left ovary due to bowel, post surgical displacement or possibly due for ectom y. No left adnexal abnormality seen.
[2022-06-17 16:22] LABS: Absolute Lymphocytes (CBC) 2.9 K/uL (0.7-4.9); Hematocrit 38.1 % (36.0-45.0); Lymphocytes % 22.9 % (15.3-44.8); MCV 87.5 fL (80-100); MPV 7.9 fL (7.6-11.3); RBC Red Blood Cell Count 4.36 M/uL (3.86-4.86)
[2022-06-17] MEDS ORDERED: PROMETHAZINE INJ 25 MG/ML AMP ONE (16:30)
[2022-06-17 16:37] LABS: Albumin 3.4 g/dL (3.4-5.0); Bilirubin Total 0.3 mg/dL (0.2-1.0); Potassium 3.8 mmol/L (3.5-5.1); Protein, Total 7.9 g/dL (6.4-8.2)
--- NOTE | 2022-06-17 17:38 | RAD REPORT ---
EXAM DESCRIPTION: CT - Abdomen Pelvis W Contrast - 06/17/2022 5:21 pm CLINICAL HISTORY: RLQ abdominal pain COMPARISON: Transvaginal Study Probe dated 06/17/2022 TECHNIQUE: Biphasic, helical CT imaging of the abdomen and pelvis was performed following 100 ml non -ionic IV contrast. Oral contrast: No. All CT scans are performed using dose optimization technique as appropriate and may include automated exposure control or mA/KV adjustment according to patient size. FINDINGS: No suspicious findings in the lung bases. The liver, spleen, and pancreas show no suspicious findings. Cholecystectomy clips present. No biliar y tree dilatation. Symmetric renal function is seen with no hydronephrosis or suspicious renal mass. No pyelonephritis o r acute parenchymal process. No bladder abnormalities. No adrenal abnormalities. Uterus is absent. Small left ovary is present with no suspicious finding. Right ovary is larger in si ze closely approximated to the vaginal cuff. There are several right ovarian cysts present largest at 2.4 cm. Calcifications are present. Cecum is low-lying in the pelvis closely approximated to the rig ht ovary. Right ovary is relatively prominent. The possibility of a dermoid or teratoma cannot be ent irely excluded. This possibility was not suspected on the endovaginal ultrasound. No dilated bowel loops or bowel wall thickening. Appendicitis is not suspected. No mass or bulky lymp hadenopathy. No free air, free fluid or pneumatosis. No suspicious bony findings. IMPRESSION: No appendicitis or surgically emergent finding. Uterus is absent. Left ovary is unremarkable. Right ovary is prominent and contains multiple small cysts or follicles. Calcifications appear to be present along the anterior margin the right ovary. Possibility of a right ovarian dermoid or teratoma cannot be excluded though this was not suspected on the pelvic ultrasound. Follow-up imaging could b e performed in 3-4 months to see if this is a persistent or progressive finding.
--- NOTE | 2022-06-17 18:04 | EDPHYS ---
Physician Documentation [facility] Name: Naz Boyle Age: 42 yrs Sex: Female : 1980 Arrival Date: 06/17/2022 Time: 14:28 Bed 23 Private MD: ED Physician Peng Hdez HPI: 06/17 18:04 This 42 yrs old Female presents to ER via Wheelchair with complaints of Right lower ms3 quadrant abdominal pain. 18:04 42-year-old female with past medical history of bradycardia, seizures, SVT, rheumatoid ms3 arthritis presents for right lower quadrant abdominal pain that is been ongoing for 1-1-/2 fluids. Patient states she was diagnosed with an ovarian cyst on the right side. Patient follow-up with her primary care physician on Friday secondary to the pain becoming worse. Patient was then referred to a specialist in which her insurance was not accepted. Patient states pain is a 10/10 and has been a 10/10 for the previous 2 weeks. Patient endorses nausea, dizziness. Patient denies fevers, chills, vomiting, diarrhea.. Historical: - Allergies: 14:44 Prednisone; ss - Home Meds: 14:44 aspirin 81 mg Oral TbEC 1 tab once daily [Active]; clopidogrel Oral [Active]; Crestor ss 10 mg Oral tab 1 tab once daily [Active]; gabapentin 100 mg Oral tab 3 caps BID [Active]; Keppra 1500 mg Oral 2 times per day [Active]; Vimpat 50 mg Oral tab 1 tab 2 times per day [Active]; midodrine 2.5 mg Oral tab 1 tab 3 times per day [Active]; levothyroxine 200 mcg cap [Active]; trazodone Oral [Active]; - PMHx: 14:44 BRADYCARDIA; Seizures; SVT; RLS; Rheumatoid Arthritis; PERIPHERAL NEUROPATHY; Migraine; ss Lupus; insomnia; hypotension; Hypercholesterolemia; CVA; Hypothyroidism; - PSHx: 14:44 Appendectomy; carpal tunnel luis miguel hands; Cholecystectomy; Total abdominal hysterectomy; ss - Immunization history:: Client reports having NOT received the Covid vaccine. - Social history:: Smoking status: Patient reports the use of cigarette tobacco products, smokes one pack cigarettes per day. ROS: 18:04 Constitutional: Negative for fever, and chills. Neck: Negative for injury, pain, and ms3 swelling, Cardiovascular: Negative for chest pain, and palpitations. Respiratory: Negative for shortness of breath, cough, wheezing, and pleuritic chest pain. 18:04 Skin: Negative for injury, rash, and discoloration. 18:04 Abdomen/GI: Positive for abdominal pain, nausea, Negative for vomiting, diarrhea. 18:04 Neuro: Positive for dizziness. 18:04 All other systems are negative. Exam: 18:04 Constitutional: This is a well developed, well nourished patient who is awake, alert, ms3 and in no acute distress. Head/Face: Normocephalic, atraumatic. Neck: Trachea midline, no cervical lymphadenopathy. Supple, full range of motion without nuchal rigidity, or vertebral point tenderness. No Meningismus. Chest/axilla: Normal chest wall appearance and motion. Nontender with no deformity. Cardiovascular: Regular rate and rhythm with a normal S1 and S2. No gallops, murmurs, or rubs. Normal PMI, no JVD. No pulse deficits. Respiratory: Lungs have equal breath sounds bilaterally, clear to auscultation and percussion. No rales, rhonchi or wheezes noted. No increased work of breathing, no retractions or nasal flaring. 18:04 Abdomen/GI: Inspection: abdomen appears normal, Bowel sounds: normal, Palpation: moderate abdominal tenderness, in the right lower quadrant. Vital Signs: 14:41 BP 129 / 93; Pulse 106; Resp 18; Temp 97.7(TE); Pulse Ox 100% on R/A; Weight 61.23 kg; ss Pain 10/10; 17:42 BP 122 / 85; Pulse 99; Resp 18; Pulse Ox 100% on R/A; ld1 MDM: 14:58 Patient medically screened. ms3 18:04 Differential diagnosis: non-specific abd pain, Diverticulitis vs Ovarian cyst vs ms3 Ovarian torsion. Data reviewed: vital signs, nurses notes, lab test result(s), radiologic studies, CT scan, ultrasound, and as a result, I will discharge patient. Consideration of Admission/Observation Escalation of care including admission/observation considered. No emergent medical condition necessitating admission found at this time. I considered the following discharge prescriptions or medication management in the emergency department Medications were administered in the Emergency Department. See MAR. Historians other than the Patient: Spouse/Significant Other: Patient's . Care significantly affected by the following chronic conditions: Rheumatoid arthritis, seizures. Care significantly affected by the following Social Determinants of Health: Poor access to healthcare and/or lack of insurance. Counseling: I had a detailed discussion with the patient and/or guardian regarding: the historical points, exam findings, and any diagnostic results supporting the discharge/admit diagnosis, lab results, radiology results, the need for outpatient follow up, to return to the emergency department if symptoms worsen or persist or if there are any questions or concerns that arise at home. Special discussion: I discussed with the patient/guardian in detail that at this point there is no indication for admission to the hospital. It is understood, however, that if the symptoms persist or worsen the patient needs to return immediately for re-evaluation. ED course: Discussed labs, CT findings with patient. Discussed with patient findings and right ovary and need for follow-up imaging in 3 to 4 months. Patient understands and agrees with plan. All questions were answered. Return precautions discussed include worsening symptoms, or any other concerns. On reevaluation patient's symptoms improved, patient is alert and oriented x4, no apparent distress, nontoxic-appearing.. 06/17 14:46 Order name: CBC with Diff; Complete Time: 16:27 ms3 06/17 14:46 Order name: CMP; Complete Time: 17:13 ms3 06/17 14:46 Order name: Lipase; Complete Time: 17:13 ms3 06/17 15:34 Order name: Transvaginal Study Probe; Complete Time: 16:27 EDMS 06/17 16:30 Order name: CT Abd/Pelvis - IV Contrast Only; Complete Time: 17:48 ms3 06/17 14:46 Order name: IV Saline Lock; Complete Time: 16:11 ms3 06/17 14:46 Order name: Labs collected and sent; Complete Time: 16:11 ms3 Administered Medications: 16:25 Drug: Ketorolac 15 mg Route: IVP; Site: left antecubital; ld1 17:45 Follow up: Response: No adverse reaction ld1 16:25 Drug: NS 0.9% 1000 ml Route: IV; Rate: 1000 ml; Site: left antecubital; ld1 17:44 Follow up: Response: No adverse reaction; IV Status: Completed infusion; IV Intake: ld1 1000ml 16:30 Drug: Phenergan (promethazine) 25 mg Route: IM; Site: affected area; ld1 17:44 Follow up: Response: No adverse reaction ld1 Disposition Summary: 06/17/22 18:04 Discharge Ordered Location: Home ms3 Condition: Stable ms3 Diagnosis - Lower abdominal pain, unspecified ms3 Followup: ms3 - With: Selam Reyes MD - When: 2 - 3 days - Reason: Recheck today's complaints Discharge Instructions: - Discharge Summary Sheet ms3 - Abdominal Pain, Adult ms3 Forms: - Medication Reconciliation Form ms3 - Thank You Letter ms3 - Antibiotic Education ms3 - Prescription Opioid Use ms3 Signatures: Dispatcher [employer] EDMS Harriett Rees, RN RN ss Peng Hdez DO DO ms3 Princess Adam RN RN ld1 Corrections: (The following items were deleted from the chart) 15:34 14:46 Pelvis Complete+US.RAD.BRZ ordered. EDMS EDMS
--- NOTE | 2022-06-17 18:04 | ER ---
Nurse's Notes [facility] Name: Naz Boyle Age: 42 yrs Sex: Female : 1980 Arrival Date: 06/17/2022 Time: 14:28 Bed 23 Private MD: Diagnosis: Lower abdominal pain, unspecified Presentation: 06/17 14:41 Chief complaint: Patient states: RLQ pain that began a couple weeks ago. Pt reports ss that she was told she had an ovarian cyst her last visit. Coronavirus screen: Client denies travel out of the [place] in the last 14 days. Ebola Screen: Patient denies exposure to infectious person. Patient denies travel to an Ebola-affected area in the 21 days before illness onset. Initial Sepsis Screen: Does the patient meet any 2 criteria? No. Patient's initial sepsis screen is negative. Does the patient have a suspected source of infection? No. Patient's initial sepsis screen is negative. Risk Assessment: Do you want to hurt yourself or someone else? Patient reports no desire to harm self or others. Onset of symptoms was June 03, 2022. 14:41 Method Of Arrival: Wheelchair ss 14:41 Acuity: MIGUEL 3 ss Historical: - Allergies: 14:44 Prednisone; ss - Home Meds: 14:44 aspirin 81 mg Oral TbEC 1 tab once daily [Active]; clopidogrel Oral [Active]; Crestor ss 10 mg Oral tab 1 tab once daily [Active]; gabapentin 100 mg Oral tab 3 caps BID [Active]; Keppra 1500 mg Oral 2 times per day [Active]; Vimpat 50 mg Oral tab 1 tab 2 times per day [Active]; midodrine 2.5 mg Oral tab 1 tab 3 times per day [Active]; levothyroxine 200 mcg cap [Active]; trazodone Oral [Active]; - PMHx: 14:44 BRADYCARDIA; Seizures; SVT; RLS; Rheumatoid Arthritis; PERIPHERAL NEUROPATHY; Migraine; ss Lupus; insomnia; hypotension; Hypercholesterolemia; CVA; Hypothyroidism; - PSHx: 14:44 Appendectomy; carpal tunnel luis miguel hands; Cholecystectomy; Total abdominal hysterectomy; ss - Immunization history:: Client reports having NOT received the Covid vaccine. - Social history:: Smoking status: Patient reports the use of cigarette tobacco products, smokes one pack cigarettes per day. Screenin:42 [facility] ED Fall Risk Assessment (Adult) History of falling in the last 3 months, ld1 including since admission No falls in past 3 months (0 pts). Abuse screen: Denies threats or abuse. Denies injuries from another. Nutritional screening: No deficits noted. Tuberculosis screening: No symptoms or risk factors identified. Assessment: 17:42 Reassessment: Patient appears in no apparent distress at this time. Patient is alert, ld1 oriented x 3, equal unlabored respirations, skin warm/dry/pink. See triage assessment. Pain: Complains of pain in abdomen Pain does not radiate. Pain currently is 8 out of 10 on a pain scale. Quality of pain is described as throbbing. Neuro: Level of Consciousness is awake, alert, obeys commands, Oriented to person, place, time, situation. Cardiovascular: Capillary refill < 3 seconds Patient's skin is warm and dry. Respiratory: Airway is patent Respiratory effort is even, unlabored. GI: Abdomen is flat, non-distended. Vital Signs: 14:41 BP 129 / 93; Pulse 106; Resp 18; Temp 97.7(TE); Pulse Ox 100% on R/A; Weight 61.23 kg; ss Pain 10/10; 17:42 BP 122 / 85; Pulse 99; Resp 18; Pulse Ox 100% on R/A; ld1 ED Course: 14:28 Patient arrived in ED. mr 14:39 Peng Hdez DO is Attending Physician. ms3 14:44 Triage completed. ss 14:44 Arm band placed on right wrist. ss 15:15 Princess Adam, RN is Primary Nurse. ld1 15:34 Transvaginal Study Probe In Process Unspecified. EDMS 16:11 Initial lab(s) drawn, by pa, sent to lab. Inserted saline lock: 20 gauge in left ks8 antecubital area, using aseptic technique. Blood collected. 17:23 CT Abd/Pelvis - IV Contrast Only In Process Unspecified. EDMS 17:42 Patient has correct armband on for positive identification. Placed in gown. Bed in low ld1 position. Call light in reach. Side rails up X2. quality assurance monitor body on. Pulse ox on. NIBP on. Door closed. Noise minimized. Warm blanket given. 17:42 No provider procedures requiring assistance completed. ld1 18:03 Kadiyala, Selam, MD is Referral Physician. ms3 Administered Medications: 16:25 Drug: Ketorolac 15 mg Route: IVP; Site: left antecubital; ld1 17:45 Follow up: Response: No adverse reaction ld1 16:25 Drug: NS 0.9% 1000 ml Route: IV; Rate: 1000 ml; Site: left antecubital; ld1 17:44 Follow up: Response: No adverse reaction; IV Status: Completed infusion; IV Intake: ld1 1000ml 16:30 Drug: Phenergan (promethazine) 25 mg Route: IM; Site: affected area; ld1 17:44 Follow up: Response: No adverse reaction ld1 Medication: 17:42 VIS not applicable for this client. ld1 Intake: 17:44 IV: 1000ml; Total: 1000ml. ld1 Outcome: 18:04 Discharge ordered by . ms3 18:25 Patient left the ED. mb9 Signatures: Dispatcher [employer] EDIL Caitlin Linares mr Harriett Rees RN RN Peng Hdez DO DO ms3 Princess Adam RN RN ld1 Caitlin Garcia RN RN mb9 Sushil Hdez ks8
[2022-06-17 19:56] VITALS: TEMP 97.7; O2SAT 100
[2022-06-17 20:02] VITALS: BP 122/85
== END 2022-06-17 18:25 | disposition home or self-care (01) ==
LOC: ER 14:15
DX: R10.31 Right lower quadrant pain (principal)
CPT/HCPCS: 36415; 74177; 76830; 80053; 83690; 85025; 96361; 96372; 96374; 99284; J2550; Q9967

== ENCOUNTER 2022-12-20 16:18 | Inpatient (IN) | payer BC, SELFPAY ==
--- OUTSIDE RECORDS SUMMARY | 2022-12-20 16:29 | XMS REPORT | Continuity of Care Document ---
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 00 :00 daily for 30 days traZODone 2022- No insomnia 400mg Take 4 Suresh (DESYREL) 08-05 tablets by [facility] 100 mg 00:00: 00:00 mouth at tablet 00 :00 bedtime nightly for 30 days prazosin 2022-2022- No Chronic 1mg Take 1 Kd ris (MINIPRESS) 08-05 PTSD with capsule by [facility] 1 mg 00:00: 00:00 Trauma mouth at capsule 00 :00 Nightmares bedtime nightly for 30 days FLUoxetine 2022- No anxiety 40mg QD Take 1 [facility] (PROZAC) 40 08-05 with capsule by [facility] mg capsule 00:00: 00:00 depression mouth 00 :00 daily for 30 days traZODone 2022- No insomnia 400mg Take 4 Suresh (DESYREL) 08-05 tablets by [facility] 100 mg 00:00: 00:00 mouth at tablet 00 :00 bedtime nightly for 30 days prazosin 2022-2022- No Chronic 1mg Take 1 Kd ris (MINIPRESS) 08-05 PTSD with capsule by [facility] 1 mg 00:00: 00:00 Trauma mouth at capsule 00 :00 Nightmares bedtime nightly for 30 days FLUoxetine 2022- No anxiety 40mg QD Take 1 [facility] (PROZAC) 40 08-05 with capsule by [facility] mg capsule 00:00: 00:00 depression mouth 00 :00 daily for 30 days traZODone 2022- No insomnia 400mg Take 4 Suresh (DESYREL) 08-05 tablets by [facility] 100 mg 00:00: 00:00 mouth at tablet 00 :00 bedtime nightly for 30 days prazosin 2022- No Chronic 1mg Take 1 Kd ris (MINIPRESS) 08-05 PTSD with capsule by [facility] 1 mg 00:00: 00:00 Trauma mouth at capsule 00 :00 Nightmares bedtime nightly for 30 days FLUoxetine 2022- No anxiety 40mg QD Take 1 [facility] (PROZAC) 40 08-05 with capsule by [facility] mg capsule 00:00: 00:00 depression mouth 00 :00 daily for 30 days traZODone 2022- No insomnia 400mg Take 4 Suresh (DESYREL) 08-05 tablets by [facility] lt 100 mg 00:00: 00:00 mouth at tablet 00 :00 bedtime nightly for 30 days prazosin 2022- No Chronic 1mg Take 1 Kd ris (MINIPRESS) 08-05 PTSD with capsule by [facility] 1 mg 00:00: 00:00 Trauma mouth at capsule 00 :00 Nightmares bedtime nightly for 30 days FLUoxetine 2022- No Chronic 20mg QD Take 1 H [facility]is (PROZAC) 20 07-08 PTSD with capsule by [facility] mg capsule 00:00: 23:59 Trauma mouth 00 :00 Nightmares daily for 30 days traZODone 2022- No PTSD 300mg Take 3 Victor M is (DESYREL) 07-08 (post-traum tablets by Health 100 mg 00:00: 23:59 atic stress mouth at tablet 00 :00 disorder) bedtime nightly for 30 days busPIRone 2022- No generalized 5mg Take 1 Suresh (BUSPAR) 5 07-08 anxiety tablet by Health mg tablet 00:00: 23:59 disorder mouth 3 00 :00 times daily for 30 days FLUoxetine 2022- No Chronic 20mg QD Take 1 H [facility] (PROZAC) 20 07-08 PTSD with capsule by [facility] mg capsule 00:00: 00:00 Trauma mouth 00 :00 Nightmares daily for 30 days traZODone 2022- No PTSD 300mg Take 3 Victor M is (DESYREL) 07-08 (post-traum tablets by [facility] 100 mg 00:00: 00:00 atic stress mouth at tablet 00 :00 disorder) bedtime nightly for 30 days busPIRone 2022- No generalized 5mg Take 1 Suresh (BUSPAR) 5 07-08 anxiety tablet by [facility] mg tablet 00:00: 00:00 disorder mouth 3 00 :00 times daily for 30 days FLUoxetine 2022- No Chronic 20mg QD Take 1 H [facility] (PROZAC) 20 07-08 PTSD with capsule by [facility] mg capsule 00:00: 00:00 Trauma mouth 00 :00 Nightmares daily for 30 days traZODone 2022- No PTSD 300mg Take 3 Victor M is (DESYREL) 07-08 (post-traum tablets by [facility] 100 mg 00:00: 00:00 atic stress mouth at tablet 00 :00 disorder) bedtime nightly for 30 days busPIRone 2022- No generalized 5mg Take 1 Suresh (BUSPAR) 5 07-08 anxiety tablet by [facility] mg tablet 00:00: 00:00 disorder mouth 3 00 :00 times daily for 30 days FLUoxetine 2022- No Chronic 20mg QD Take 1 H [facility] (PROZAC) 20 07-08 PTSD with capsule by [facility] mg capsule 00:00: 00:00 Trauma mouth 00 :00 Nightmares daily for 30 days traZODone 2022- No PTSD 300mg Take 3 Victor M is (DESYREL) 07-08 (post-traum tablets by [facility] 100 mg 00:00: 00:00 atic stress mouth at tablet 00 :00 disorder) bedtime nightly for 30 days busPIRone 2022- No generalized 5mg Take 1 Suresh (BUSPAR) 5 07-08 anxiety tablet by [facility] mg tablet 00:00: 00:00 disorder mouth 3 00 :00 times daily for 30 days FLUoxetine 2022- No Chronic 20mg QD Take 1 H [facility] (PROZAC) 20 07-08 PTSD with capsule by [facility] mg capsule 00:00: 00:00 Trauma mouth 00 :00 Nightmares daily for 30 days traZODone 2022- No PTSD 300mg Take 3 Victor M is (DESYREL) 07-08 (post-traum tablets by [facility] 100 mg 00:00: 00:00 atic stress mouth at tablet 00 :00 disorder) bedtime nightly for 30 days busPIRone 2022- No generalized 5mg Take 1 Suresh (BUSPAR) 5 07-08 anxiety tablet by [facility] mg tablet 00:00: 00:00 disorder mouth 3 00 :00 times daily for 30 days FLUoxetine 2022- No Chronic 20mg QD Take 1 H [facility] (PROZAC) 20 07-08 PTSD with capsule by [facility] mg capsule 00:00: 00:00 Trauma mouth 00 :00 Nightmares daily for 30 days traZODone 2022- No PTSD 300mg Take 3 Victor M is (DESYREL) 07-08 (post-traum tablets by [facility] 100 mg 00:00: 00:00 atic stress mouth at tablet 00 :00 disorder) bedtime nightly for 30 days busPIRone 2022- No generalized 5mg Take 1 Suresh (BUSPAR) 5 07-08 anxiety tablet by [facility] mg tablet 00:00: 00:00 disorder mouth 3 00 :00 times daily for 30 days FLUoxetine 2022- No Chronic 20mg QD Take 1 H [facility]is (PROZAC) 20 07-08 PTSD with capsule by [facility] mg capsule 00:00: 00:00 Trauma mouth 00 :00 Nightmares daily for 30 days traZODone 2022- No PTSD 300mg Take 3 Victor M is (DESYREL) 07-08 (post-traum tablets by Health 100 mg 00:00: 00:00 atic stress mouth at tablet 00 :00 disorder) bedtime nightly for 30 days busPIRone 2022- No generalized 5mg Take 1 Suresh (BUSPAR) 5 07-08 anxiety tablet by [facility] mg tablet 00:00: 00:00 disorder mouth 3 00 :00 times daily for 30 days FLUoxetine 2022- No Chronic 20mg QD Take 1 H [facility] (PROZAC) 20 07-08 PTSD with capsule by [facility] mg capsule 00:00: 00:00 Trauma mouth 00 :00 Nightmares daily for 30 days traZODone 2022- No PTSD 300mg Take 3 Victor M is (DESYREL) 07-08 (post-traum tablets by [facility] 100 mg 00:00: 00:00 atic stress mouth at tablet 00 :00 disorder) bedtime nightly for 30 days busPIRone 2022- No generalized 5mg Take 1 Suresh (BUSPAR) 5 07-08 anxiety tablet by [facility] mg tablet 00:00: 00:00 disorder mouth 3 00 :00 times daily for 30 days midodrine Yes 2.5mg Take 2.5 Kd ris (PROAMATINE 1-30 mg by Health ) 2.5 mg 16:13: mouth tablet 11 rosuvastati Yes 10mg Take 10 mg Suresh n (CRESTOR) 1-30 by mouth [facility] 10 mg 16:13: tablet 11 oxyBUTYnin Yes 5mg Q.5D Take 5 mg [facility] (DITROPAN) 1-30 by mouth 2 [facility] 5 mg tablet 16:13: times 11 daily gabapentin 0 Yes 300mg Take 300 [facility] (NEURONTIN) 1-30 mg by Health 300 mg 16:13: mouth capsule 11 every evening aspirin 81 0 Yes 81mg Take 81 mg [facility] mg delayed 1-30 by mouth [facility] release 16:13: tablet 11 gabapentin Yes 100mg Take 100 [facility] (NEURONTIN) 1-30 mg by [facility] 100 mg 16:13: mouth capsule 11 every morning hydrOXYchlo Yes 200mg Take 200 [facility] roQUINE 1-30 mg by Health (PLAQUENIL) 16:13: mouth 200 mg 11 tablet midodrine Yes 2.5mg Take 2.5 Kd ris (PROAMATINE 1-30 mg by Health ) 2.5 mg 16:13: mouth tablet 11 rosuvastati Yes 10mg Take 10 mg Suresh n (CRESTOR) 1-30 by mouth [facility] 10 mg 16:13: tablet 11 oxyBUTYnin 2022-0 Yes 5mg Q.5D Take 5 mg [facility] (DITROPAN) 1-30 by mouth 2 [facility] 5 mg tablet 16:13: times 11 daily gabapentin 2022-0 Yes 300mg Take 300 [facility] (NEURONTIN) 1-30 mg by [facility] 300 mg 16:13: mouth capsule 11 every evening aspirin 81 2022-0 Yes 81mg Take 81 mg [facility] mg delayed 1-30 by mouth [facility] release 16:13: tablet 11 gabapentin 2022-0 Yes 100mg Take 100 [facility] (NEURONTIN) 1-30 mg by [facility] 100 mg 16:13: mouth capsule 11 every morning hydrOXYchlo 2022-0 Yes 200mg Take 200 [facility] roQUINE 1-30 mg by [facility] (PLAQUENIL) 16:13: mouth 200 mg 11 tablet midodrine 2022-0 Yes 2.5mg Take 2.5 Kd ris (PROAMATINE 1-30 mg by Health ) 2.5 mg 16:13: mouth tablet 11 rosuvastati 2022-0 Yes 10mg Take 10 mg Suresh n (CRESTOR) 1-30 by mouth [facility] 10 mg 16:13: tablet 11 oxyBUTYnin 2022-0 Yes 5mg Q.5D Take 5 mg [facility] (DITROPAN) 1-30 by mouth 2 [facility] 5 mg tablet 16:13: times 11 daily gabapentin 2022-0 Yes 300mg Take 300 [facility] (NEURONTIN) 1-30 mg by [facility] 300 mg 16:13: mouth capsule 11 every evening aspirin 81 2022-0 Yes 81mg Take 81 mg [facility] mg delayed 1-30 by mouth [facility] release 16:13: tablet 11 gabapentin 2022-0 Yes 100mg Take 100 [facility] (NEURONTIN) 1-30 mg by [facility] 100 mg 16:13: mouth capsule 11 every morning hydrOXYchlo 2022-0 Yes 200mg Take 200 [facility] roQUINE 1-30 mg by [facility] (PLAQUENIL) 16:13: mouth 200 mg 11 tablet midodrine 2022-0 Yes 2.5mg Take 2.5 Kd ris (PROAMATINE 1-30 mg by Health ) 2.5 mg 16:13: mouth tablet 11 rosuvastati 2022-0 Yes 10mg Take 10 mg Suresh n (CRESTOR) 1-30 by mouth [facility] 10 mg 16:13: tablet 11 oxyBUTYnin 2022-0 Yes 5mg Q.5D Take 5 mg [facility] (DITROPAN) 1-30 by mouth 2 [facility] 5 mg tablet 16:13: times 11 daily gabapentin 2022-0 Yes 300mg Take 300 B[facility] (NEURONTIN) 1-30 mg by [facility] 300 mg 16:13: mouth capsule 11 every evening aspirin 81 2022-0 Yes 81mg Take 81 mg [facility] mg delayed 1-30 by mouth [facility] release 16:13: tablet 11 gabapentin 2022-0 Yes 100mg Take 100 B[facility] (NEURONTIN) 1-30 mg by [facility] 100 mg 16:13: mouth capsule 11 every morning hydrOXYchlo 2022-0 Yes 200mg Take 200 H [facility] roQUINE 1-30 mg by [facility] (PLAQUENIL) 16:13: mouth 200 mg 11 tablet midodrine 0 Yes 2.5mg Take 2.5 Kd ris (PROAMATINE 1-30 mg by Health ) 2.5 mg 16:13: mouth tablet 11 rosuvastati 2022-0 Yes 10mg Take 10 mg Suresh n (CRESTOR) 1-30 by mouth [facility] 10 mg 16:13: tablet 11 oxyBUTYnin 2022-0 Yes 5mg Q.5D Take 5 mg [facility] (DITROPAN) 1-30 by mouth 2 [facility] 5 mg tablet 16:13: times 11 daily gabapentin 2022-0 Yes 300mg Take 300 B[facility] (NEURONTIN) 1-30 mg by [facility] 300 mg 16:13: mouth capsule 11 every evening aspirin 81 2022-0 Yes 81mg Take 81 mg [facility] mg delayed 1-30 by mouth [facility] release 16:13: tablet 11 gabapentin 2022-0 Yes 100mg Take 100 B[facility] (NEURONTIN) 1-30 mg by [facility] 100 mg 16:13: mouth capsule 11 every morning hydrOXYchlo 2022-0 Yes 200mg Take 200 H [facility] roQUINE 1-30 mg by [facility] (PLAQUENIL) 16:13: mouth 200 mg 11 tablet midodrine 2022-0 Yes 2.5mg Take 2.5 Kd ris (PROAMATINE 1-30 mg by Health ) 2.5 mg 16:13: mouth tablet 11 rosuvastati Yes 10mg Take 10 mg Suresh n (CRESTOR) 1-30 by mouth [facility] 10 mg 16:13: tablet 11 oxyBUTYnin Yes 5mg Q.5D Take 5 mg [facility] (DITROPAN) 1-30 by mouth 2 [facility] 5 mg tablet 16:13: times 11 daily gabapentin 0 Yes 300mg Take 300 B[facility] (NEURONTIN) 1-30 mg by [facility] 300 mg 16:13: mouth capsule 11 every evening aspirin 81 Yes 81mg Take 81 mg [facility] mg delayed 1-30 by mouth [facility] release 16:13: tablet 11 gabapentin Yes 100mg Take 100 B[facility]ris (NEURONTIN) 1-30 mg by [facility] 100 mg 16:13: mouth capsule 11 every morning hydrOXYchlo Yes 200mg Take 200 H [facility] roQUINE 1-30 mg by Health (PLAQUENIL) 16:13: mouth 200 mg 11 tablet levothyroxi 2022- No 175ug Take 175 Suresh ne 1-30 01-30 mcg by Health (SYNTHROID) 13:18: 00:00 mouth 175 mcg 40 :00 tablet traZODone 2022- No 150mg Take 150 Bravo rris (DESYREL) 1-30 01-30 mg by [facility] 50 mg 13:18: 00:00 mouth tablet 40 :00 escitalopra 2022- No 10mg QD Take 10 mg Suresh m (LEXAPRO) 06-24-30 by mouth [facility] 10 mg 13:18: 00:00 daily tablet 40 :00 levothyroxi 2022- No 175ug Take 175 Suresh ne 1-30 01-30 mcg by Health (SYNTHROID) 13:18: 00:00 mouth 175 mcg 40 :00 tablet traZODone 2022- No 150mg Take 150 B[facility]ris (DESYREL) 1-30 01-30 mg by [facility] 50 mg 13:18: 00:00 mouth tablet 40 :00 escitalopra 2022- No 10mg QD Take 10 mg Suresh m (LEXAPRO) 06-2430 by mouth [facility] 10 mg 13:18: 00:00 daily tablet 40 :00 levothyroxi No 175ug Take 175 Suresh ne 06-24 mcg by Health (SYNTHROID) 13:18: 00:00 mouth 175 mcg 40 :00 tablet traZODone No 150mg Take 150 B[facility]ris (DESYREL) 06-24 mg by [facility] 50 mg 13:18: 00:00 mouth tablet 40 :00 escitalopra No 10mg QD Take 10 mg Suresh m (LEXAPRO) 06-24 by mouth [facility] 10 mg 13:18: 00:00 daily tablet 40 :00 Levetiracet No Suicidal 1500mg Q.5D Take 1 & Suresh am (KEPPRA) 06-24 behavior 1/2 (one [facility] 1,000 mg 00:00: 23:59 without and tablet 00 :00 attempted one-half) self-injury tablets by mouth 2 times daily for 30 days hydrOXYzine No Suicidal 25mg Take 1 Suresh (ATARAX) 25 06-24 behavior tablet by Health mg tablet 00:00: 23:59 without mouth 00 :00 attempted every 6 self-injury hours as needed for up to 30 days for Anxiety Levetiracet 2022- No [id number] 1500mg Q.5D Take 1 & Suresh am (KEPPRA) 06-24 1/2 (one [facility] 1,000 mg 00:00: 23:59 and tablet 00 :00 one-half) tablets by mouth 2 times daily for 30 days hydrOXYzine 2022- No [id number] 25mg Take 1 Suresh (ATARAX) 25 06-24 tablet by [facility] mg tablet 00:00: 23:59 mouth 00 :00 every 6 hours as needed for up to 30 days for Anxiety Levetiracet 2022- No Suicidal 1500mg Q.5D Take 1 & Suresh am (KEPPRA) 06-24 behavior 1/2 (one [facility] 1,000 mg 00:00: 23:59 without and tablet 00 :00 attempted one-half) self-injury tablets by mouth 2 times daily for 30 days hydrOXYzine No Suicidal 25mg Take 1 Suresh (ATARAX) 06-24 behavior tablet by Health mg tablet 00:00: 23:59 without mouth 00 :00 attempted every 6 self-injury hours as needed for up to 30 days for Anxiety Levetiracet 2022- No [id number] 1500mg Q.5D Take 1 & Suresh am (KEPPRA) 06-24 1/2 (one [facility] 1,000 mg 00:00: 23:59 and tablet 00 :00 one-half) tablets by mouth 2 times daily for 30 days hydrOXYzine 2022- No [id number] 25mg Take 1 Suresh (ATARAX) 06-24 tablet by [facility] mg tablet 00:00: 23:59 mouth 00 :00 every 6 hours as needed for up to 30 days for Anxiety Levetiracet 2022- No [id number] 1500mg Q.5D Take 1 & Suresh am (KEPPRA) 06-242 (one [facility] 1,000 mg 00:00: 23:59 and tablet 00 :00 one-half) tablets by mouth 2 times daily for 30 days hydrOXYzine 2022- No [id number] 25mg Take 1 Suresh (ATARAX) 06-24 tablet by [facility] mg tablet 00:00: 23:59 mouth 00 :00 every 6 hours as needed for up to 30 days for Anxiety Levetiracet 2022- No Suicidal 1500mg Q.5D Take 1 & Suresh am (KEPPRA) 06-24 behavior 1/2 (one [facility] 1,000 mg 00:00: 23:59 without and tablet 00 :00 attempted one-half) self-injury tablets by mouth 2 times daily for 30 days hydrOXYzine 2022- No Suicidal 25mg Take 1 Suresh (ATARAX) 06-24 behavior tablet by Health mg tablet 00:00: 23:59 without mouth 00 :00 attempted every 6 self-injury hours as needed for up to 30 days for Anxiety Levetiracet 2022- No [id number] 1500mg Q.5D Take 1 & Suresh am (KEPPRA) 06-24 1/2 (one [facility] 1,000 mg 00:00: 23:59 and tablet 00 :00 one-half) tablets by mouth 2 times daily for 30 days hydrOXYzine 2022- No [id number] 25mg Take 1 Suresh (ATARAX) 25 06-24 tablet by [facility] mg tablet 00:00: 23:59 mouth 00 :00 every 6 hours as needed for up to 30 days for Anxiety Levetiracet 2022- No Suicidal 1500mg Q.5D Take 1 & Suresh am (KEPPRA) 06-24 behavior 1/2 (one [facility] 1,000 mg 00:00: 23:59 without and tablet 00 :00 attempted one-half) self-injury tablets by mouth 2 times daily for 30 days hydrOXYzine 2022- No Suicidal 25mg Take 1 Suresh (ATARAX) 06-24 behavior tablet by Health mg tablet 00:00: 23:59 without mouth 00 :00 attempted every 6 self-injury hours as needed for up to 30 days for Anxiety Levetiracet 2022- No [id number] 1500mg Q.5D Take 1 & Suresh am (KEPPRA) 06-24 1/2 (one [facility] 1,000 mg 00:00: 23:59 and tablet 00 :00 one-half) tablets by mouth 2 times daily for 30 days hydrOXYzine 2022- No [id number] 25mg Take 1 Suresh (ATARAX) 06-24 tablet by [facility] mg tablet 00:00: 23:59 mouth 00 :00 every 6 hours as needed for up to 30 days for Anxiety Levetiracet 2022- No Suicidal 1500mg Q.5D Take 1 & Suresh am (KEPPRA) 06-24 behavior 1/2 (one [facility] 1,000 mg 00:00: 23:59 without and tablet 00 :00 attempted one-half) self-injury tablets by mouth 2 times daily for 30 days hydrOXYzine 2022- No Suicidal 25mg Take 1 Suresh (ATARAX) 06-24 behavior tablet by Health mg tablet 00:00: 23:59 without mouth 00 :00 attempted every 6 self-injury hours as needed for up to 30 days for Anxiety Levetiracet 2022- No [id number] 1500mg Q.5D Take 1 & Suresh am (KEPPRA) 06-24 1/2 (one [facility] 1,000 mg 00:00: 23:59 and tablet 00 :00 one-half) tablets by mouth 2 times daily for 30 days hydrOXYzine 2022- No [id number] 25mg Take 1 Suresh (ATARAX) 25 06-24 tablet by [facility] mg tablet 00:00: 23:59 mouth 00 :00 every 6 hours as needed for up to 30 days for Anxiety Levetiracet 2022- No Suicidal 1500mg Q.5D Take 1 & Suresh am (KEPPRA) 06-24 behavior 1/2 (one [facility] 1,000 mg 00:00: 23:59 without and tablet 00 :00 attempted one-half) self-injury tablets by mouth 2 times daily for 30 days hydrOXYzine 2022- No Suicidal 25mg Take 1 Suresh (ATARAX) 25 06-24 behavior tablet by Health mg tablet 00:00: 23:59 without mouth 00 :00 attempted every 6 self-injury hours as needed for up to 30 days for Anxiety Levetiracet 2022- No [id number] 1500mg Q.5D Take 1 & Suresh am (KEPPRA) 06-24 12 (one [facility] 1,000 mg 00:00: 23:59 and tablet 00 :00 one-half) tablets by mouth 2 times daily for 30 days hydrOXYzine 2022- No [id number] 25mg Take 1 Suresh (ATARAX) 25 06-24 tablet by [facility] mg tablet 00:00: 23:59 mouth 00 :00 every 6 hours as needed for up to 30 days for Anxiety Levetiracet 2022- No Suicidal 1500mg Q.5D Take 1 & Suresh am (KEPPRA) 06-24 behavior 1/2 (one [facility] 1,000 mg 00:00: 23:59 without and tablet 00 :00 attempted one-half) self-injury tablets by mouth 2 times daily for 30 days hydrOXYzine 2022- No Suicidal 25mg Take 1 Suresh (ATARAX) 25 06-24 behavior tablet by Health mg tablet 00:00: 23:59 without mouth 00 :00 attempted every 6 self-injury hours as needed for up to 30 days for Anxiety Levetiracet 2022- No [id number] 1500mg Q.5D Take 1 & Suresh am (KEPPRA) 06-24 1/2 (one [facility] 1,000 mg 00:00: 23:59 and tablet 00 :00 one-half) tablets by mouth 2 times daily for 30 days hydrOXYzine 2022- No [id number] 25mg Take 1 Suresh (ATARAX) 06-24 tablet by [facility] mg tablet 00:00: 23:59 mouth 00 :00 every 6 hours as needed for up to 30 days for Anxiety Levetiracet 2022- No Suicidal 1500mg Q.5D Take 1 & Suresh am (KEPPRA) 06-24 behavior 1/2 (one [facility] 1,000 mg 00:00: 23:59 without and tablet 00 :00 attempted one-half) self-injury tablets by mouth 2 times daily for 30 days hydrOXYzine 2022- No Suicidal 25mg Take 1 Suresh (ATARAX) 06-24 behavior tablet by Health mg tablet 00:00: 23:59 without mouth 00 :00 attempted every 6 self-injury hours as needed for up to 30 days for Anxiety Levetiracet 2022- No [id number] 1500mg Q.5D Take 1 & Suresh am (KEPPRA) 06-24 1/2 (one [facility] 1,000 mg 00:00: 23:59 and tablet 00 :00 one-half) tablets by mouth 2 times daily for 30 days hydrOXYzine 2022- No [id number] 25mg Take 1 Suresh (ATARAX) 06-24 tablet by [facility] mg tablet 00:00: 23:59 mouth 00 :00 every 6 hours as needed for up to 30 days for Anxiety escitalopra 2022- No Suicidal 20mg QD Take 2 Suresh m (LEXAPRO) 06-24 behavior tablets by Health 10 mg 00:00: 00:00 without mouth tablet 00 :00 attempted daily for self-injury 30 days traZODone 2022- No Suicidal 250mg Take 5 Suresh (DESYREL) 06-24 behavior tablets by Health 50 mg 00:00: 00:00 without mouth at tablet 00 :00 attempted bedtime self-injury nightly for 30 days escitalopra 2022- No [id number] 20mg QD Take 2 Suresh m (LEXAPRO) 06-24 tablets by [facility] 10 mg 00:00: 00:00 mouth tablet 00 :00 daily for 30 days traZODone 2022- No [id number] 250mg Take 5 Suresh (DESYREL) 06-24 tablets by [facility] 50 mg 00:00: 00:00 mouth at tablet 00 :00 bedtime nightly for 30 days escitalopra 2022- No Suicidal 20mg QD Take 2 Suresh m (LEXAPRO) 06-24 behavior tablets by Health 10 mg 00:00: 00:00 without mouth tablet 00 :00 attempted daily for self-injury 30 days traZODone 2022- No Suicidal 250mg Take 5 Suresh (DESYREL) 06-24 behavior tablets by Health 50 mg 00:00: 00:00 without mouth at tablet 00 :00 attempted bedtime self-injury nightly for 30 days escitalopra 2022- No [id number] 20mg QD Take 2 Suresh m (LEXAPRO) 06-24 tablets by [facility] 10 mg 00:00: 00:00 mouth tablet 00 :00 daily for 30 days traZODone 2022- No [id number] 250mg Take 5 Suresh (DESYREL) 06-24 tablets by [facility] 50 mg 00:00: 00:00 mouth at tablet 00 :00 bedtime nightly for 30 days escitalopra 2022- No Suicidal 20mg QD Take 2 Suresh m (LEXAPRO) 06-24 behavior tablets by Health 10 mg 00:00: 00:00 without mouth tablet 00 :00 attempted daily for self-injury 30 days traZODone 2022- No Suicidal 250mg Take 5 Suresh (DESYREL) 06-24 behavior tablets by Health 50 mg 00:00: 00:00 without mouth at tablet 00 :00 attempted bedtime self-injury nightly for 30 days escitalopra 2022- No [id number] 20mg QD Take 2 Suresh m (LEXAPRO) 06-24 tablets by [facility] 10 mg 00:00: 00:00 mouth tablet 00 :00 daily for 30 days traZODone 2022- No [id number] 250mg Take 5 Suresh (DESYREL) 06-24 tablets by [facility] 50 mg 00:00: 00:00 mouth at tablet 00 :00 bedtime nightly for 30 days escitalopra 2022- No Suicidal 20mg QD Take 2 Suresh m (LEXAPRO) 06-24 behavior tablets by Health 10 mg 00:00: 00:00 without mouth tablet 00 :00 attempted daily for self-injury 30 days traZODone 2022- No Suicidal 250mg Take 5 Suresh (DESYREL) 06-24 behavior tablets by Health 50 mg 00:00: 00:00 without mouth at tablet 00 :00 attempted bedtime self-injury nightly for 30 days escitalopra 2022- No [id number] 20mg QD Take 2 Suresh m (LEXAPRO) 06-24 tablets by [facility] 10 mg 00:00: 00:00 mouth tablet 00 :00 daily for 30 days traZODone 2022- No [id number] 250mg Take 5 Suresh (DESYREL) 06-24 tablets by a lt 50 mg 00:00: 00:00 mouth at tablet 00 :00 bedtime nightly for 30 days escitalopra 2022- No Suicidal 20mg QD Take 2 Suresh m (LEXAPRO) 06-24 behavior tablets by Health 10 mg 00:00: 00:00 without mouth tablet 00 :00 attempted daily for self-injury 30 days traZODone 2022- No Suicidal 250mg Take 5 Suresh (DESYREL) 06-24 behavior tablets by Health 50 mg 00:00: 00:00 without mouth at tablet 00 :00 attempted bedtime self-injury nightly for 30 days escitalopra 2022- No [id number] 20mg QD Take 2 Suresh m (LEXAPRO) 06-24 tablets by [facility] 10 mg 00:00: 00:00 mouth tablet 00 :00 daily for 30 days traZODone 2022- No [id number] 250mg Take 5 Suresh (DESYREL) 06-24 tablets by [facility] 50 mg 00:00: 00:00 mouth at tablet 00 :00 bedtime nightly for 30 days escitalopra 2022- No Suicidal 20mg QD Take 2 Suresh m (LEXAPRO) 06-24 behavior tablets by Health 10 mg 00:00: 00:00 without mouth tablet 00 :00 attempted daily for self-injury 30 days traZODone 2022- No Suicidal 250mg Take 5 Suresh (DESYREL) 06-24 behavior tablets by Health 50 mg 00:00: 00:00 without mouth at tablet 00 :00 attempted bedtime self-injury nightly for 30 days escitalopra 2022- No [id number] 20mg QD Take 2 Suresh m (LEXAPRO) 06-24 tablets by [facility] 10 mg 00:00: 00:00 mouth tablet 00 :00 daily for 30 days traZODone 2022- No [id number] 250mg Take 5 Suresh (DESYREL) 06-24 tablets by [facility] 50 mg 00:00: 00:00 mouth at tablet 00 :00 bedtime nightly for 30 days escitalopra 2022- No Suicidal 20mg QD Take 2 Suresh m (LEXAPRO) 06-24 behavior tablets by Health 10 mg 00:00: 00:00 without mouth tablet 00 :00 attempted daily for self-injury 30 days traZODone 2022- No Suicidal 250mg Take 5 Suresh (DESYREL) 06-24 behavior tablets by Health 50 mg 00:00: 00:00 without mouth at tablet 00 :00 attempted bedtime self-injury nightly for 30 days escitalopra 2022- No [id number] 20mg QD Take 2 Suresh m (LEXAPRO) 06-24 tablets by [facility] 10 mg 00:00: 00:00 mouth tablet 00 :00 daily for 30 days traZODone 2022- No [id number] 250mg Take 5 Suresh (DESYREL) 06-24 tablets by [facility] 50 mg 00:00: 00:00 mouth at tablet 00 :00 bedtime nightly for 30 days escitalopra 2022- No Suicidal 20mg QD Take 2 Suresh m (LEXAPRO) 06-24 behavior tablets by Health 10 mg 00:00: 00:00 without mouth tablet 00 :00 attempted daily for self-injury 30 days traZODone 2022- No Suicidal 250mg Take 5 Suresh (DESYREL) 06-24 behavior tablets by Health 50 mg 00:00: 00:00 without mouth at tablet 00 :00 attempted bedtime self-injury nightly for 30 days escitalopra 2022- No [id number] 20mg QD Take 2 Suresh m (LEXAPRO) 06-24 tablets by [facility] 10 mg 00:00: 00:00 mouth tablet 00 :00 daily for 30 days traZODone 2022- No [id number] 250mg Take 5 Suresh (DESYREL) 06-24 tablets by [facility] 50 mg 00:00: 00:00 mouth at tablet 00 :00 bedtime nightly for 30 days escitalopra 2022- No [id number] 20mg QD Take 2 Suresh m (LEXAPRO) 06-24 tablets by [facility] 10 mg 00:00: 00:00 mouth tablet 00 :00 daily for 30 days traZODone 2022- No [id number] 250mg Take 5 Suresh (DESYREL) 06-24 tablets by [facility] 50 mg 00:00: 00:00 mouth at tablet 00 :00 bedtime nightly for 30 days gabapentin 2022- No 300mg 300 mg Kd ris (NEURONTIN) 06-22 (2.81 [facility] capsule 300 21:00: 18:13 mg/kg), mg 00 :13 Oral, EVERY EVENING, 30 doses, First dose on 06/22/22 at 2100, Last dose on 07/21/22 at 2100, STAT traZODone 2022- No 200mg 200 mg Victor M is (DESYREL) 06-22 (1.88 [facility] tablet 200 21:00: 18:13 mg/kg), mg 00 :13 Oral, AT BEDTIME, 30 doses, First dose on 06/22/22 at 2100, Last dose on 07/21/22 at 2100, STAT gabapentin 2022- No 300mg 300 mg Kd ris (NEURONTIN) 06-22 (2.81 [facility] capsule 300 21:00: 18:13 mg/kg), mg 00 :13 Oral, EVERY EVENING, 30 doses, First dose on 06/22/22 at 2100, Last dose on 07/21/22 at 2100, STAT traZODone 2022- No 200mg 200 mg Victor M is (DESYREL) 06-22 (1.88 [facility] tablet 200 21:00: 18:13 mg/kg), mg 00 :13 Oral, AT BEDTIME, 30 doses, First dose on 06/22/22 at 2100, Last dose on 07/21/22 at 2100, STAT gabapentin 2022- No 300mg 300 mg Kd ris (NEURONTIN) 06-22 (2.81 [facility] capsule 300 21:00: 18:13 mg/kg), mg 00 :13 Oral, EVERY EVENING, 30 doses, First dose on 06/22/22 at 2100, Last dose on 07/21/22 at 2100, STAT traZODone 2022- No 200mg 200 mg Victor M is (DESYREL) 06-22 (1.88 [facility] tablet 200 21:00: 18:13 mg/kg), mg 00 :13 Oral, AT BEDTIME, 30 doses, First dose on 06/22/22 at 2100, Last dose on 07/21/22 at 2100, STAT gabapentin 2022- No 300mg 300 mg Kd ris (NEURONTIN) 06-22 (2.81 [facility] capsule 300 21:00: 18:13 mg/kg), mg 00 :13 Oral, EVERY EVENING, 30 doses, First dose on 06/22/22 at 2100, Last dose on 07/21/22 at 2100, STAT traZODone 2022- No 200mg 200 mg Victor M is (DESYREL) 06-22 (1.88 [facility] tablet 200 21:00: 18:13 mg/kg), mg 00 :13 Oral, AT BEDTIME, 30 doses, First dose on 06/22/22 at 2100, Last dose on 07/21/22 at 2100, STAT gabapentin 2022- No 300mg 300 mg Kd ris (NEURONTIN) 06-22 (2.81 [facility] capsule 300 21:00: 18:13 mg/kg), mg 00 :13 Oral, EVERY EVENING, 30 doses, First dose on 06/22/22 at 2100, Last dose on 07/21/22 at 2100, STAT traZODone 2022- No 200mg 200 mg Victor M is (DESYREL) 06-22 (1.88 [facility] tablet 200 21:00: 18:13 mg/kg), mg 00 :13 Oral, AT BEDTIME, 30 doses, First dose on 06/22/22 at 2100, Last dose on 07/21/22 at 2100, STAT gabapentin 2022- No 300mg 300 mg Kd ris (NEURONTIN) 06-22 (2.81 [facility] capsule 300 21:00: 18:13 mg/kg), mg 00 :13 Oral, EVERY EVENING, 30 doses, First dose on 06/22/22 at 2100, Last dose on 07/21/22 at 2100, STAT traZODone 2022- No 200mg 200 mg Victor M is (DESYREL) 06-22 (1.88 [facility] tablet 200 21:00: 18:13 mg/kg), mg 00 :13 Oral, AT BEDTIME, 30 doses, First dose on 06/22/22 at 2100, Last dose on 07/21/22 at 2100, STAT gabapentin 0 2022- No 300mg 300 mg Kd ris (NEURONTIN) 06-22 (2.81 [facility] capsule 300 21:00: 18:13 mg/kg), mg 00 :13 Oral, EVERY EVENING, 30 doses, First dose on 06/22/22 at 2100, Last dose on 07/21/22 at 2100, STAT traZODone 2022- No 200mg 200 mg Victor M is (DESYREL) 06-22 (1.88 [facility] tablet 200 21:00: 18:13 mg/kg), mg 00 :13 Oral, AT BEDTIME, 30 doses, First dose on 06/22/22 at 2100, Last dose on 07/21/22 at 2100, STAT gabapentin 2022- No 300mg 300 mg Kd ris (NEURONTIN) 06-22 (2.81 [facility] capsule 300 21:00: 18:13 mg/kg), mg 00 :13 Oral, EVERY EVENING, 30 doses, First dose on 06/22/22 at 2100, Last dose on 07/21/22 at 2100, STAT traZODone No 200mg 200 mg Victor M is (DESYREL) 06-22 (1.88 [facility] tablet 200 21:00: 18:13 mg/kg), mg 00 :13 Oral, AT BEDTIME, 30 doses, First dose on 06/22/22 at 2100, Last dose on 07/21/22 at 2100, STAT gabapentin 2022- No 300mg 300 mg Kd ris (NEURONTIN) 06-22 (2.81 [facility] capsule 300 21:00: 18:13 mg/kg), mg 00 :13 Oral, EVERY EVENING, 30 doses, First dose on 06/22/22 at 2100, Last dose on 07/21/22 at 2100, STAT traZODone 2022- No 200mg 200 mg Victor M is (DESYREL) 06-22 (1.88 [facility] tablet 200 21:00: 18:13 mg/kg), mg 00 :13 Oral, AT BEDTIME, 30 doses, First dose on 06/22/22 at 2100, Last dose on 07/21/22 at 2100, STAT oxyCODONE 2022- No 5mg 5 mg Kerwin (ROXICODONE 1-28 01-30 (0.0469 [facility] ) tablet 5 14:03: 09:15 mg/kg), mg 20 :00 Oral, EVERY 6 HOURS PRN, 3 doses, Starting on 06/22/22 at 1403, Until Discontinu ed, Moderate Pain (4-6) - 1st Line, STAT oxyCODONE 2022-0 202- No 5mg 5 mg Suresh (ROXICODONE 06-2230 (0.0469 [facility] ) tablet 5 14:03: 09:15 mg/kg), mg 20 :00 Oral, EVERY 6 HOURS PRN, 3 doses, Starting on 06/22/22 at 1403, Until Discontinu ed, Moderate Pain (4-6) - 1st Line, STAT oxyCODONE 2022-0 2022- No 5mg 5 mg Suresh (ROXICODONE 06-22 (0.0469 [facility] ) tablet 5 14:03: 09:15 mg/kg), mg 20 :00 Oral, EVERY 6 HOURS PRN, 3 doses, Starting on 06/22/22 at 1403, Until Discontinu ed, Moderate Pain (4-6) - 1st Line, STAT oxyCODONE 2022-0 2022- No 5mg 5 mg Suresh (ROXICODONE 06-22 (0.0469 [facility] ) tablet 5 14:03: 09:15 mg/kg), mg 20 :00 Oral, EVERY 6 HOURS PRN, 3 doses, Starting on 06/22/22 at 1403, Until Discontinu ed, Moderate Pain (4-6) - 1st Line, STAT oxyCODONE 2022-0 2022- No 5mg 5 mg Suresh (ROXICODONE 06-2230 (0.0469 [facility] ) tablet 5 14:03: 09:15 mg/kg), mg 20 :00 Oral, EVERY 6 HOURS PRN, 3 doses, Starting on 06/22/22 at 1403, Until Discontinu ed, Moderate Pain (4-6) - 1st Line, STAT oxyCODONE 2022-0 2022- No 5mg 5 mg Suresh (ROXICODONE 06-2230 (0.0469 [facility] ) tablet 5 14:03: 09:15 mg/kg), mg 20 :00 Oral, EVERY 6 HOURS PRN, 3 doses, Starting on 06/22/22 at 1403, Until Discontinu ed, Moderate Pain (4-6) - 1st Line, STAT oxyCODONE 2022- No 5mg 5 mg Suresh (ROXICODONE 06-22 (0.0469 [facility] ) tablet 5 14:03: 09:15 mg/kg), mg 20 :00 Oral, EVERY 6 HOURS PRN, 3 doses, Starting on 06/22/22 at 1403, Until Discontinu ed, Moderate Pain (4-6) - 1st Line, STAT oxyCODONE 2022- No 5mg 5 mg Suresh (ROXICODONE 06-22 (0.0469 [facility] ) tablet 5 14:03: 09:15 mg/kg), mg 20 :00 Oral, EVERY 6 HOURS PRN, 3 doses, Starting on 06/22/22 at 1403, Until Discontinu ed, Moderate Pain (4-6) - 1st Line, STAT oxyCODONE 2022- No 5mg 5 mg Suresh (ROXICODONE 06-22 (0.0469 [facility] ) tablet 5 14:03: 09:15 mg/kg), mg 20 :00 Oral, EVERY 6 HOURS PRN, 3 doses, Starting on 06/22/22 at 1403, Until Discontinu ed, Moderate Pain (4-6) - 1st Line, STAT lacosamide 2022- No 50mg Q.5D 50 mg Harri s (VIMPAT) 06-22 (0.469 [facility] tablet 50 12:15: 18:13 mg/kg), mg 00 :13 Oral, 2 TIMES DAILY, 60 doses, First dose on 06/22/22 at 1215, Last dose on 07/21/22 at 1700, STAT levETIRAcet 2022- No 1500mg Q.5D 1,500 mg Suresh am (KEPPRA) 06-22 (14.1 Health tablet 12:15: 18:13 mg/kg), 1,500 mg 00 :13 Oral, 2 TIMES DAILY, 60 doses, First dose on 06/22/22 at 1215, Last dose on 07/21/22 at 1700, STAT lacosamide 2022- No 50mg Q.5D 50 mg Harri s (VIMPAT) 06-22 (0.469 [facility] tablet 50 12:15: 18:13 mg/kg), mg 00 :13 Oral, 2 TIMES DAILY, 60 doses, First dose on 06/22/22 at 1215, Last dose on 07/21/22 at 1700, STAT levETIRAcet 2022- No 1500mg Q.5D 1,500 mg Suresh am (KEPPRA) 06-22 (14.1 Health tablet 12:15: 18:13 mg/kg), 1,500 mg 00 :13 Oral, 2 TIMES DAILY, 60 doses, First dose on 06/22/22 at 1215, Last dose on 07/21/22 at 1700, STAT lacosamide 2022- No 50mg Q.5D 50 mg Harri s (VIMPAT) 06-22 (0.469 [facility] tablet 50 12:15: 18:13 mg/kg), mg 00 :13 Oral, 2 TIMES DAILY, 60 doses, First dose on 06/22/22 at 1215, Last dose on 07/21/22 at 1700, STAT levETIRAcet 2022- No 1500mg Q.5D 1,500 mg Suresh am (KEPPRA) 06-22 (14.1 [facility] tablet 12:15: 18:13 mg/kg), 1,500 mg 00 :13 Oral, 2 TIMES DAILY, 60 doses, First dose on 06/22/22 at 1215, Last dose on 07/21/22 at 1700, STAT lacosamide 2022- No 50mg Q.5D 50 mg Harri s (VIMPAT) 06-22 (0.469 [facility] tablet 50 12:15: 18:13 mg/kg), mg 00 :13 Oral, 2 TIMES DAILY, 60 doses, First dose on 06/22/22 at 1215, Last dose on 07/21/22 at 1700, STAT levETIRAcet 0 2022- No 1500mg Q.5D 1,500 mg Suresh am (KEPPRA) 06-22 (14.1 [facility] tablet 12:15: 18:13 mg/kg), 1,500 mg 00 :13 Oral, 2 TIMES DAILY, 60 doses, First dose on 06/22/22 at 1215, Last dose on 07/21/22 at 1700, STAT lacosamide 2022- No 50mg Q.5D 50 mg Harri s (VIMPAT) 06-22 (0.469 [facility] tablet 50 12:15: 18:13 mg/kg), mg 00 :13 Oral, 2 TIMES DAILY, 60 doses, First dose on 06/22/22 at 1215, Last dose on 07/21/22 at 1700, STAT levETIRAcet 2022- No 1500mg Q.5D 1,500 mg Suresh am (KEPPRA) 06-22 (14.1 [facility] tablet 12:15: 18:13 mg/kg), 1,500 mg 00 :13 Oral, 2 TIMES DAILY, 60 doses, First dose on 06/22/22 at 1215, Last dose on 07/21/22 at 1700, STAT lacosamide 2022- No 50mg Q.5D 50 mg Harri s (VIMPAT) 06-22 (0.469 [facility] tablet 50 12:15: 18:13 mg/kg), mg 00 :13 Oral, 2 TIMES DAILY, 60 doses, First dose on 06/22/22 at 1215, Last dose on 07/21/22 at 1700, STAT levETIRAcet 2022- No 1500mg Q.5D 1,500 mg Suresh am (KEPPRA) 06-22 (14.1 [facility] tablet 12:15: 18:13 mg/kg), 1,500 mg 00 :13 Oral, 2 TIMES DAILY, 60 doses, First dose on 06/22/22 at 1215, Last dose on 07/21/22 at 1700, STAT lacosamide 2022- No 50mg Q.5D 50 mg Harri s (VIMPAT) 06-22 (0.469 [facility] tablet 50 12:15: 18:13 mg/kg), mg 00 :13 Oral, 2 TIMES DAILY, 60 doses, First dose on 06/22/22 at 1215, Last dose on 07/21/22 at 1700, STAT levETIRAcet 2022- No 1500mg Q.5D 1,500 mg Suresh am (KEPPRA) 06-22 (14.1 [facility] tablet 12:15: 18:13 mg/kg), 1,500 mg 00 :13 Oral, 2 TIMES DAILY, 60 doses, First dose on 06/22/22 at 1215, Last dose on 07/21/22 at 1700, STAT lacosamide 2022- No 50mg Q.5D 50 mg Harri s (VIMPAT) 06-22 (0.469 [facility] tablet 50 12:15: 18:13 mg/kg), mg 00 :13 Oral, 2 TIMES DAILY, 60 doses, First dose on 06/22/22 at 1215, Last dose on 07/21/22 at 1700, STAT levETIRAcet 2022- No 1500mg Q.5D 1,500 mg Suresh am (KEPPRA) 06-22 (14.1 Health tablet 12:15: 18:13 mg/kg), 1,500 mg 00 :13 Oral, 2 TIMES DAILY, 60 doses, First dose on 06/22/22 at 1215, Last dose on 07/21/22 at 1700, STAT lacosamide No 50mg Q.5D 50 mg Harri s (VIMPAT) 06-22 (0.469 [facility] tablet 50 12:15: 18:13 mg/kg), mg 00 :13 Oral, 2 TIMES DAILY, 60 doses, First dose on 06/22/22 at 1215, Last dose on 07/21/22 at 1700, STAT levETIRAcet 2022- No 1500mg Q.5D 1,500 mg Suresh am (KEPPRA) 06-22 (14.1 [facility] tablet 12:15: 18:13 mg/kg), 1,500 mg 00 :13 Oral, 2 TIMES DAILY, 60 doses, First dose on 06/22/22 at 1215, Last dose on 07/21/22 at 1700, STAT acetaminoph 2022- No 650mg 650 mg Bravo rris en 06-22 (6.1 Health (TYLENOL) 12:09: 18:13 mg/kg), tablet 650 19 :13 Oral, mg EVERY 8 HOURS PRN, Starting on 06/22/22 at 1209, Until 06/24/22 at 1813, Mild Pain (1-3) - 1st Line, Headache, STAT acetaminoph 2022- No 650mg 650 mg Bravo rris en 06-22 (6.1 Health (TYLENOL) 12:09: 18:13 mg/kg), tablet 650 19 :13 Oral, mg EVERY 8 HOURS PRN, Starting on 06/22/22 at 1209, Until 06/24/22 at 1813, Mild Pain (1-3) - 1st Line, Headache, STAT acetaminoph 2022- No 650mg 650 mg Bravo rris en 06-22 (6.1 [facility] (TYLENOL) 12:09: 18:13 mg/kg), tablet 650 19 :13 Oral, mg EVERY 8 HOURS PRN, Starting on 06/22/22 at 1209, Until 06/24/22 at 1813, Mild Pain (1-3) - 1st Line, Headache, STAT acetaminoph 2022- No 650mg 650 mg Bravo rris en 06-22 (6.1 [facility] (TYLENOL) 12:09: 18:13 mg/kg), tablet 650 19 :13 Oral, mg EVERY 8 HOURS PRN, Starting on 06/22/22 at 1209, Until 06/24/22 at 1813, Mild Pain (1-3) - 1st Line, Headache, STAT acetaminoph 2022- No 650mg 650 mg Bravo rris en 06-22 (6.1 [facility] (TYLENOL) 12:09: 18:13 mg/kg), tablet 650 19 :13 Oral, mg EVERY 8 HOURS PRN, Starting on 06/22/22 at 1209, Until 06/24/22 at 1813, Mild Pain (1-3) - 1st Line, Headache, STAT acetaminoph 2022- No 650mg 650 mg Bravo rris en 06-22 (6.1 [facility] (TYLENOL) 12:09: 18:13 mg/kg), tablet 650 19 :13 Oral, mg EVERY 8 HOURS PRN, Starting on 06/22/22 at 1209, Until 06/24/22 at 1813, Mild Pain (1-3) - 1st Line, Headache, STAT acetaminoph 2022-2022- No 650mg 650 mg Bravo rris en 06-22 (6.1 [facility] (TYLENOL) 12:09: 18:13 mg/kg), tablet 650 19 :13 Oral, mg EVERY 8 HOURS PRN, Starting on 06/22/22 at 1209, Until 06/24/22 at 1813, Mild Pain (1-3) - 1st Line, Headache, STAT acetaminoph 2022- No 650mg 650 mg Bravo rris en 06-22 (6.1 [facility] (TYLENOL) 12:09: 18:13 mg/kg), tablet 650 19 :13 Oral, mg EVERY 8 HOURS PRN, Starting on 06/22/22 at 1209, Until 06/24/22 at 1813, Mild Pain (1-3) - 1st Line, Headache, STAT acetaminoph 2022- No 650mg 650 mg Bravo rris en 06-22 (6.1 Health (TYLENOL) 12:09: 18:13 mg/kg), tablet 650 19 :13 Oral, mg EVERY 8 HOURS PRN, Starting on 06/22/22 at 1209, Until 06/24/22 at 1813, Mild Pain (1-3) - 1st Line, Headache, STAT nicotine 2022-2022- No 1{patch QD 1 Patch, H arris (NICODERM 06-22 } [facility]) 14 09:00: 18:13 l, DAILY, mg/24 hr 1 00 :13 30 doses, Patch First dose on 06/22/22 at 0900, Last dose on Fri07/21/22 at 0900, STAT hydrOXYchlo 2022-2022- No 200mg QD 200 mg Bravo rris roQUINE 06-22 (1.88 Health (PLAQUENIL) 09:00: 18:13 mg/kg), tablet 200 00 :13 Oral, mg DAILY, 30 doses, First dose on 06/22/22 at 0900, Last dose on 07/21/22 at 0900, STAT rosuvastati 2022- No 10mg QD 10 mg Victor M is n (CRESTOR) 06-22 (0.0938 [facility]al th tablet 10 09:00: 18:13 mg/kg), mg 00 :13 Oral, DAILY, 30 doses, First dose on 06/22/22 at 0900, Last dose on 07/21/22 at 0900, STAT midodrine 2022- No 2.5mg Q.5D 2.5 mg Victor M is (PROAMATINE 06-22 (0.0235 [facility]al th ) tablet 09:00: 18:13 mg/kg), 2.5 mg 00 :13 Oral, 2 TIMES DAILY, 60 doses, First dose on 06/22/22 at 0900, Last dose on 07/21/22 at 1700, STAT oxyBUTYnin 2022- No 5mg Q.5D 5 mg Kerwin (DITROPAN) 06-22 (0.0469 [facility]alt h tablet 5 mg 09:00: 18:13 mg/kg), 00 :13 Oral, 2 TIMES DAILY, 60 doses, First dose on 06/22/22 at 0900, Last dose on 07/21/22 at 1700, STAT escitalopra 2022- No 20mg QD 20 mg Victor M is m oxalate 06-22 (0.188 Health (LEXAPRO) 09:00: 18:13 mg/kg), tablet 20 00 :13 Oral, mg DAILY, 30 doses, First dose on 06/22/22 at 0900, Last dose on 07/21/22 at 0900, STAT enoxaparin 2022- No 40mg 40 mg Victor Mi s (LOVENOX) 06-22 (0.375 Health injection 09:00: 18:13 mg/kg), 40 mg 00 :13 Subcutaneo us, EVERY 24 HOURS, 30 doses, First dose on 06/22/22 at 0900, Last dose on 07/21/22 at 0900, STAT gabapentin 2022-2022- No 100mg 100 mg Kd ris (NEURONTIN) 06-22 (0.938 [facility]alt h capsule 100 09:00: 18:13 mg/kg), mg 00 :13 Oral, EVERY MORNING, 30 doses, First dose on 06/22/22 at 0900, Last dose on 07/21/22 at 0900, STAT aspirin 2022- No 81mg QD 81 mg Suresh chewable 06-22 (0.76 Health tablet 81 09:00: 18:13 mg/kg), mg 00 :13 Oral (Chew), DAILY, First dose on 06/22/22 at 0900, Until Discontinu ed, STAT nicotine 2022- No 1{patch QD 1 Patch, H arris (NICODERM 06-22 } [facility]) 14 09:00: 18:13 l, DAILY, mg/24 hr 1 00 :13 30 doses, Patch First dose on 06/22/22 at 0900, Last dose on 07/21/22 at 0900, STAT hydrOXYchlo No 200mg QD 200 mg Bravo rris roQUINE 06-22 (1.88 Health (PLAQUENIL) 09:00: 18:13 mg/kg), tablet 200 00 :13 Oral, mg DAILY, 30 doses, First dose on 06/22/22 at 0900, Last dose on 07/21/22 at 0900, STAT rosuvastati 2022- No 10mg QD 10 mg Victor M is n (CRESTOR) 06-22 (0.0938 [facility]al th tablet 10 09:00: 18:13 mg/kg), mg 00 :13 Oral, DAILY, 30 doses, First dose on 06/22/22 at 0900, Last dose on 07/21/22 at 0900, STAT midodrine 2022- No 2.5mg Q.5D 2.5 mg Victor M is (PROAMATINE 06-22 (0.0235 Heal th ) tablet 09:00: 18:13 mg/kg), 2.5 mg 00 :13 Oral, 2 TIMES DAILY, 60 doses, First dose on 06/22/22 at 0900, Last dose on 07/21/22 at 1700, STAT oxyBUTYnin No 5mg Q.5D 5 mg Suresh (DITROPAN) 06-22 (0.0469 Healt h tablet 5 mg 09:00: 18:13 mg/kg), 00 :13 Oral, 2 TIMES DAILY, 60 doses, First dose on 06/22/22 at 0900, Last dose on 07/21/22 at 1700, STAT escitalopra No 20mg QD 20 mg Victor M is m oxalate 06-22 (0.188 Health (LEXAPRO) 09:00: 18:13 mg/kg), tablet 20 00 :13 Oral, mg DAILY, 30 doses, First dose on 06/22/22 at 0900, Last dose on 07/21/22 at 0900, STAT enoxaparin No 40mg 40 mg Harri s (LOVENOX) 06-22 (0.375 Health injection 09:00: 18:13 mg/kg), 40 mg 00 :13 Subcutaneo us, EVERY 24 HOURS, 30 doses, First dose on 06/22/22 at 0900, Last dose on 07/21/22 at 0900, STAT gabapentin No 100mg 100 mg Kd ris (NEURONTIN) 06-22 (0.938 [facility]alt h capsule 100 09:00: 18:13 mg/kg), mg 00 :13 Oral, EVERY MORNING, 30 doses, First dose on 06/22/22 at 0900, Last dose on 07/21/22 at 0900, STAT aspirin No 81mg QD 81 mg Suresh chewable 06-22 (0.76 Health tablet 81 09:00: 18:13 mg/kg), mg 00 :13 Oral (Chew), DAILY, First dose on 06/22/22 at 0900, Until Discontinu ed, STAT nicotine 2022- No 1{patch QD 1 Patch, H arris (NICODERM 06-22 } [facility]) 14 09:00: 18:13 l, DAILY, mg/24 hr 1 00 :13 30 doses, Patch First dose on 06/22/22 at 0900, Last dose on 07/21/22 at 0900, STAT hydrOXYchlo 2022- No 200mg QD 200 mg Bravo rris roQUINE 06-22 (1.88 Health (PLAQUENIL) 09:00: 18:13 mg/kg), tablet 200 00 :13 Oral, mg DAILY, 30 doses, First dose on 06/22/22 at 0900, Last dose on 07/21/22 at 0900, STAT rosuvastati 2022- No 10mg QD 10 mg Victor M is n (CRESTOR) 06-22 (0.0938 [facility]al th tablet 10 09:00: 18:13 mg/kg), mg 00 :13 Oral, DAILY, 30 doses, First dose on 06/22/22 at 0900, Last dose on 07/21/22 at 0900, STAT midodrine No 2.5mg Q.5D 2.5 mg Victor M is (PROAMATINE 06-22 (0.0235 [facility]al th ) tablet 09:00: 18:13 mg/kg), 2.5 mg 00 :13 Oral, 2 TIMES DAILY, 60 doses, First dose on 06/22/22 at 0900, Last dose on 07/21/22 at 1700, STAT oxyBUTYnin No 5mg Q.5D 5 mg Kerwin (DITROPAN) 06-22 (0.0469 Healt h tablet 5 mg 09:00: 18:13 mg/kg), 00 :13 Oral, 2 TIMES DAILY, 60 doses, First dose on 06/22/22 at 0900, Last dose on 07/21/22 at 1700, STAT escitalopra No 20mg QD 20 mg Victor M is m oxalate 06-22 (0.188 Health (LEXAPRO) 09:00: 18:13 mg/kg), tablet 20 00 :13 Oral, mg DAILY, 30 doses, First dose on 06/22/22 at 0900, Last dose on 07/21/22 at 0900, STAT enoxaparin No 40mg 40 mg Harri s (LOVENOX) 06-22 (0.375 Health injection 09:00: 18:13 mg/kg), 40 mg 00 :13 Subcutaneo us, EVERY 24 HOURS, 30 doses, First dose on 06/22/22 at 0900, Last dose on 07/21/22 at 0900, STAT gabapentin No 100mg 100 mg Kd ris (NEURONTIN) 06-22 (0.938 [facility]alt [facility] capsule 100 09:00: 18:13 mg/kg), mg 00 :13 Oral, EVERY MORNING, 30 doses, First dose on 06/22/22 at 0900, Last dose on 07/21/22 at 0900, STAT aspirin No 81mg QD 81 mg Suresh chewable 06-22 (0.76 Health tablet 81 09:00: 18:13 mg/kg), mg 00 :13 Oral (Chew), DAILY, First dose on 06/22/22 at 0900, Until Discontinu ed, STAT nicotine No 1{patch QD 1 Patch, H arris (NICODERM 06-22 } [facility]) 14 09:00: 18:13 l, DAILY, mg/24 hr 1 00 :13 30 doses, Patch First dose on 06/22/22 at 0900, Last dose on 07/21/22 at 0900, STAT hydrOXYchlo No 200mg QD 200 mg Bravo rris roQUINE 06-22 (1.88 Health (PLAQUENIL) 09:00: 18:13 mg/kg), tablet 200 00 :13 Oral, mg DAILY, 30 doses, First dose on 06/22/22 at 0900, Last dose on 07/21/22 at 0900, STAT rosuvastati 2022- No 10mg QD 10 mg Victor M is n (CRESTOR) 06-22 (0.0938 [facility]al th tablet 10 09:00: 18:13 mg/kg), mg 00 :13 Oral, DAILY, 30 doses, First dose on 06/22/22 at 0900, Last dose on 07/21/22 at 0900, STAT midodrine 2022- No 2.5mg Q.5D 2.5 mg Victor M is (PROAMATINE 06-22 (0.0235 Heal th ) tablet 09:00: 18:13 mg/kg), 2.5 mg 00 :13 Oral, 2 TIMES DAILY, 60 doses, First dose on 06/22/22 at 0900, Last dose on 07/21/22 at 1700, STAT oxyBUTYnin 2022- No 5mg Q.5D 5 mg Suresh (DITROPAN) 06-22 (0.0469 Healt h tablet 5 mg 09:00: 18:13 mg/kg), 00 :13 Oral, 2 TIMES DAILY, 60 doses, First dose on 06/22/22 at 0900, Last dose on 07/21/22 at 1700, STAT escitalopra 2022- No 20mg QD 20 mg Victor M is m oxalate 06-22 (0.188 Health (LEXAPRO) 09:00: 18:13 mg/kg), tablet 20 00 :13 Oral, mg DAILY, 30 doses, First dose on 06/22/22 at 0900, Last dose on 07/21/22 at 0900, STAT enoxaparin No 40mg 40 mg Victor Mi s (LOVENOX) 06-22 (0.375 Health injection 09:00: 18:13 mg/kg), 40 mg 00 :13 Subcutaneo us, EVERY 24 HOURS, 30 doses, First dose on 06/22/22 at 0900, Last dose on 07/21/22 at 0900, STAT gabapentin 2022- No 100mg 100 mg Kd ris (NEURONTIN) 06-22 (0.938 Healt h capsule 100 09:00: 18:13 mg/kg), mg 00 :13 Oral, EVERY MORNING, 30 doses, First dose on 06/22/22 at 0900, Last dose on 07/21/22 at 0900, STAT aspirin 2022- No 81mg QD 81 mg Suresh chewable 06-22 (0.76 Health tablet 81 09:00: 18:13 mg/kg), mg 00 :13 Oral (Chew), DAILY, First dose on 06/22/22 at 0900, Until Discontinu ed, STAT nicotine No 1{patch QD 1 Patch, H arris (NICODERM 06-22 } [facility]) 14 09:00: 18:13 l, DAILY, mg/24 hr 1 00 :13 30 doses, Patch First dose on 06/22/22 at 0900, Last dose on 07/21/22 at 0900, STAT hydrOXYchlo No 200mg QD 200 mg Bravo rris roQUINE 06-22 (1.88 Health (PLAQUENIL) 09:00: 18:13 mg/kg), tablet 200 00 :13 Oral, mg DAILY, 30 doses, First dose on 06/22/22 at 0900, Last dose on 07/21/22 at 0900, STAT rosuvastati No 10mg QD 10 mg Victor M is n (CRESTOR) 06-22 (0.0938 [facility]al [facility] tablet 10 09:00: 18:13 mg/kg), mg 00 :13 Oral, DAILY, 30 doses, First dose on 06/22/22 at 0900, Last dose on 07/21/22 at 0900, STAT midodrine No 2.5mg Q.5D 2.5 mg Victor M is (PROAMATINE 06-22 (0.0235 [facility]al th ) tablet 09:00: 18:13 mg/kg), 2.5 mg 00 :13 Oral, 2 TIMES DAILY, 60 doses, First dose on 06/22/22 at 0900, Last dose on 07/21/22 at 1700, STAT oxyBUTYnin No 5mg Q.5D 5 mg Kerwin (DITROPAN) 06-22 (0.0469 [facility]alt h tablet 5 mg 09:00: 18:13 mg/kg), 00 :13 Oral, 2 TIMES DAILY, 60 doses, First dose on 06/22/22 at 0900, Last dose on 07/21/22 at 1700, STAT escitalopra No 20mg QD 20 mg Victor M is m oxalate 06-22 (0.188 Health (LEXAPRO) 09:00: 18:13 mg/kg), tablet 20 00 :13 Oral, mg DAILY, 30 doses, First dose on 06/22/22 at 0900, Last dose on 07/21/22 at 0900, STAT enoxaparin No 40mg 40 mg Victor Mi s (LOVENOX) 06-22 (0.375 Health injection 09:00: 18:13 mg/kg), 40 mg 00 :13 Subcutaneo us, EVERY 24 HOURS, 30 doses, First dose on 06/22/22 at 0900, Last dose on 07/21/22 at 0900, STAT gabapentin No 100mg 100 mg Kd ris (NEURONTIN) 06-22 (0.938 [facility]alt [facility] capsule 100 09:00: 18:13 mg/kg), mg 00 :13 Oral, EVERY MORNING, 30 doses, First dose on 06/22/22 at 0900, Last dose on 07/21/22 at 0900, STAT aspirin No 81mg QD 81 mg Suresh chewable 06-22 (0.76 Health tablet 81 09:00: 18:13 mg/kg), mg 00 :13 Oral (Chew), DAILY, First dose on 06/22/22 at 0900, Until Discontinu ed, STAT nicotine No 1{patch QD 1 Patch, H arris (NICODERM 06-22 } [facility] CQ) 14 09:00: 18:13 l, DAILY, mg/24 hr 1 00 :13 30 doses, Patch First dose on 06/22/22 at 0900, Last dose on 07/21/22 at 0900, STAT hydrOXYchlo 2023-0 2023- No 200mg QD 200 mg Bravo rris roQUINE 06-22 (1.88 Health (PLAQUENIL) 09:00: 18:13 mg/kg), tablet 200 00 :13 Oral, mg DAILY, 30 doses, First dose on 06/22/22 at 0900, Last dose on 07/21/22 at 0900, STAT rosuvastati 2022- No 10mg QD 10 mg Victor M is n (CRESTOR) 06-22 (0.0938 [facility]al th tablet 10 09:00: 18:13 mg/kg), mg 00 :13 Oral, DAILY, 30 doses, First dose on 06/22/22 at 0900, Last dose on 07/21/22 at 0900, STAT midodrine 2022- No 2.5mg Q.5D 2.5 mg Victor M is (PROAMATINE 06-22 (0.0235 Heal th ) tablet 09:00: 18:13 mg/kg), 2.5 mg 00 :13 Oral, 2 TIMES DAILY, 60 doses, First dose on 06/22/22 at 0900, Last dose on 07/21/22 at 1700, STAT oxyBUTYnin 2022- No 5mg Q.5D 5 mg Kerwin (DITROPAN) 06-22 (0.0469 [facility]alt h tablet 5 mg 09:00: 18:13 mg/kg), 00 :13 Oral, 2 TIMES DAILY, 60 doses, First dose on 06/22/22 at 0900, Last dose on 07/21/22 at 1700, STAT escitalopra 2022- No 20mg QD 20 mg Victor M is m oxalate 06-22 (0.188 Health (LEXAPRO) 09:00: 18:13 mg/kg), tablet 20 00 :13 Oral, mg DAILY, 30 doses, First dose on 06/22/22 at 0900, Last dose on 07/21/22 at 0900, STAT enoxaparin 2022- No 40mg 40 mg Victor Mi s (LOVENOX) 06-22 (0.375 Health injection 09:00: 18:13 mg/kg), 40 mg 00 :13 Subcutaneo us, EVERY 24 HOURS, 30 doses, First dose on 06/22/22 at 0900, Last dose on 07/21/22 at 0900, STAT gabapentin 2022-2022- No 100mg 100 mg Kd ris (NEURONTIN) 06-22 (0.938 Healt h capsule 100 09:00: 18:13 mg/kg), mg 00 :13 Oral, EVERY MORNING, 30 doses, First dose on 06/22/22 at 0900, Last dose on 07/21/22 at 0900, STAT aspirin 2022- No 81mg QD 81 mg Suresh chewable 06-22 (0.76 Health tablet 81 09:00: 18:13 mg/kg), mg 00 :13 Oral (Chew), DAILY, First dose on 06/22/22 at 0900, Until Discontinu ed, STAT nicotine 2022- No 1{patch QD 1 Patch, H arris (NICODERM 06-22 } [facility] CQ) 14 09:00: 18:13 l, DAILY, mg/24 hr 1 00 :13 30 doses, Patch First dose on 06/22/22 at 0900, Last dose on 07/21/22 at 0900, STAT hydrOXYchlo No 200mg QD 200 mg Bravo rris roQUINE 06-22 (1.88 Health (PLAQUENIL) 09:00: 18:13 mg/kg), tablet 200 00 :13 Oral, mg DAILY, 30 doses, First dose on 06/22/22 at 0900, Last dose on 07/21/22 at 0900, STAT rosuvastati 2022- No 10mg QD 10 mg Victor M is n (CRESTOR) 06-22 (0.0938 Heal th tablet 10 09:00: 18:13 mg/kg), mg 00 :13 Oral, DAILY, 30 doses, First dose on 06/22/22 at 0900, Last dose on 07/21/22 at 0900, STAT midodrine 2022- No 2.5mg Q.5D 2.5 mg Victor M is (PROAMATINE 06-22 (0.0235 Heal th ) tablet 09:00: 18:13 mg/kg), 2.5 mg 00 :13 Oral, 2 TIMES DAILY, 60 doses, First dose on 06/22/22 at 0900, Last dose on 07/21/22 at 1700, STAT oxyBUTYnin No 5mg Q.5D 5 mg Suresh (DITROPAN) 06-22 (0.0469 Healt h tablet 5 mg 09:00: 18:13 mg/kg), 00 :13 Oral, 2 TIMES DAILY, 60 doses, First dose on 06/22/22 at 0900, Last dose on 07/21/22 at 1700, STAT escitalopra No 20mg QD 20 mg Victor M is m oxalate 06-22 (0.188 Health (LEXAPRO) 09:00: 18:13 mg/kg), tablet 20 00 :13 Oral, mg DAILY, 30 doses, First dose on 06/22/22 at 0900, Last dose on 07/21/22 at 0900, STAT enoxaparin No 40mg 40 mg Harri s (LOVENOX) 06-22 (0.375 Health injection 09:00: 18:13 mg/kg), 40 mg 00 :13 Subcutaneo us, EVERY 24 HOURS, 30 doses, First dose on 06/22/22 at 0900, Last dose on 07/21/22 at 0900, STAT gabapentin No 100mg 100 mg Kd ris (NEURONTIN) 06-22 (0.938 Healt h capsule 100 09:00: 18:13 mg/kg), mg 00 :13 Oral, EVERY MORNING, 30 doses, First dose on 06/22/22 at 0900, Last dose on 07/21/22 at 0900, STAT aspirin No 81mg QD 81 mg Suresh chewable 06-22 (0.76 Health tablet 81 09:00: 18:13 mg/kg), mg 00 :13 Oral (Chew), DAILY, First dose on 06/22/22 at 0900, Until Discontinu ed, STAT nicotine 2022- No 1{patch QD 1 Patch, H arris (NICODERM 06-22 } [facility] C[facility]) 14 09:00: 18:13 l, DAILY, mg/24 hr 1 00 :13 30 doses, Patch First dose on 06/22/22 at 0900, Last dose on 07/21/22 at 0900, STAT hydrOXYchlo 2022- No 200mg QD 200 mg Bravo rris roQUINE 06-22 (1.88 Health (PLAQUENIL) 09:00: 18:13 mg/kg), tablet 200 00 :13 Oral, mg DAILY, 30 doses, First dose on 06/22/22 at 0900, Last dose on 07/21/22 at 0900, STAT rosuvastati 2022- No 10mg QD 10 mg Victor M is n (CRESTOR) 06-22 (0.0938 Heal th tablet 10 09:00: 18:13 mg/kg), mg 00 :13 Oral, DAILY, 30 doses, First dose on 06/22/22 at 0900, Last dose on 07/21/22 at 0900, STAT midodrine No 2.5mg Q.5D 2.5 mg Victor M is (PROAMATINE 06-22 (0.0235 Heal th ) tablet 09:00: 18:13 mg/kg), 2.5 mg 00 :13 Oral, 2 TIMES DAILY, 60 doses, First dose on 06/22/22 at 0900, Last dose on 07/21/22 at 1700, STAT oxyBUTYnin No 5mg Q.5D 5 mg Kerwin (DITROPAN) 06-22 (0.0469 Healt h tablet 5 mg 09:00: 18:13 mg/kg), 00 :13 Oral, 2 TIMES DAILY, 60 doses, First dose on 06/22/22 at 0900, Last dose on 07/21/22 at 1700, STAT escitalopra No 20mg QD 20 mg Victor M is m oxalate 06-22 (0.188 Health (LEXAPRO) 09:00: 18:13 mg/kg), tablet 20 00 :13 Oral, mg DAILY, 30 doses, First dose on 06/22/22 at 0900, Last dose on 07/21/22 at 0900, STAT enoxaparin No 40mg 40 mg Harri s (LOVENOX) 06-22 (0.375 Health injection 09:00: 18:13 mg/kg), 40 mg 00 :13 Subcutaneo us, EVERY 24 HOURS, 30 doses, First dose on 06/22/22 at 0900, Last dose on 07/21/22 at 0900, STAT gabapentin No 100mg 100 mg Kd ris (NEURONTIN) 06-22 (0.938 Healt h capsule 100 09:00: 18:13 mg/kg), mg 00 :13 Oral, EVERY MORNING, 30 doses, First dose on 06/22/22 at 0900, Last dose on 07/21/22 at 0900, STAT aspirin No 81mg QD 81 mg Suresh chewable 06-22 (0.76 Health tablet 81 09:00: 18:13 mg/kg), mg 00 :13 Oral (Chew), DAILY, First dose on 06/22/22 at 0900, Until Discontinu ed, STAT nicotine No 1{patch QD 1 Patch, H arris (NICODERM 06-22 } [facility] CQ) 14 09:00: 18:13 l, DAILY, mg/24 hr 1 00 :13 30 doses, Patch First dose on 06/22/22 at 0900, Last dose on 07/21/22 at 0900, STAT hydrOXYchlo No 200mg QD 200 mg Bravo rris roQUINE 06-22 (1.88 Health (PLAQUENIL) 09:00: 18:13 mg/kg), tablet 200 00 :13 Oral, mg DAILY, 30 doses, First dose on 06/22/22 at 0900, Last dose on 07/21/22 at 0900, STAT rosuvastati 2022- No 10mg QD 10 mg Victor M is n (CRESTOR) 06-22 (0.0938 Heal th tablet 10 09:00: 18:13 mg/kg), mg 00 :13 Oral, DAILY, 30 doses, First dose on 06/22/22 at 0900, Last dose on 07/21/22 at 0900, STAT midodrine 2022- No 2.5mg Q.5D 2.5 mg Victor M is (PROAMATINE 06-22 (0.0235 Heal th ) tablet 09:00: 18:13 mg/kg), 2.5 mg 00 :13 Oral, 2 TIMES DAILY, 60 doses, First dose on 06/22/22 at 0900, Last dose on 07/21/22 at 1700, STAT oxyBUTYnin 2022- No 5mg Q.5D 5 mg Suresh (DITROPAN) 06-22 (0.0469 Healt h tablet 5 mg 09:00: 18:13 mg/kg), 00 :13 Oral, 2 TIMES DAILY, 60 doses, First dose on 06/22/22 at 0900, Last dose on 07/21/22 at 1700, STAT escitalopra 2022- No 20mg QD 20 mg Victor M is m oxalate 06-22 (0.188 Health (LEXAPRO) 09:00: 18:13 mg/kg), tablet 20 00 :13 Oral, mg DAILY, 30 doses, First dose on 06/22/22 at 0900, Last dose on 07/21/22 at 0900, STAT enoxaparin No 40mg 40 mg Victor Mi s (LOVENOX) 06-22 (0.375 Health injection 09:00: 18:13 mg/kg), 40 mg 00 :13 Subcutaneo us, EVERY 24 HOURS, 30 doses, First dose on 06/22/22 at 0900, Last dose on 07/21/22 at 0900, STAT gabapentin 2022- No 100mg 100 mg Kd ris (NEURONTIN) 06-22 (0.938 Healt h capsule 100 09:00: 18:13 mg/kg), mg 00 :13 Oral, EVERY MORNING, 30 doses, First dose on 06/22/22 at 0900, Last dose on 07/21/22 at 0900, STAT aspirin 2022-0 2022- No 81mg QD 81 mg Suresh chewable 06-22 (0.76 Health tablet 81 09:00: 18:13 mg/kg), mg 00 :13 Oral (Chew), DAILY, First dose on 06/22/22 at 0900, Until Discontinu ed, STAT TAKE ONE 2022-0 No (1) 1-16 TABLET(S) 00:00: BY MOUTH 00 THREE TIMES A DAY. TAKE 1 2022-0 No TABLET 1-16 DAILY. 00:00: 00 levETIRAcet 2022-0 2022- No 1500mg 1,500 mg, Univers am (KEPPRA) 05-31 IV ity of in NACL 23:00: 22:36 Piggyback, [place] as (ISO-OS) 00 :00 ONCE, 1 Medical 1,500 dose, On Branch mg/100 mL Fri05/31/22 RTU at 1700, Administer over 15 Minutes, 100 mL iopamidol 2022- No [id number] 75mL 75 mL, Univers (ISOVUE 05-31 Intravenou ity o f 370-500 mL) 23:00: 21:51 s, ONCE, 1 [place] injection 00 :00 dose, On Medica l 75 mL Fri05/31/22 Branch at 1700, Routine NaCl 0.9% Yes 5mL 5 mL, Slow Un nunu (NS) 05-31 IV Push, ity of injection 5 21:31: PRN - [place] mL 32 INSTRUCT Medical NS, Branch Starting on Fri05/31/22 at 1531, Until Discontinu ed, 10 mL lacosamide 2022-0 Yes 50mg Take 50 mg H arris (VIMPAT) 50 -06 by mouth Heal th mg tablet 00:00: 00 lacosamide 2022-0 Yes 50mg Take 50 mg H arris (VIMPAT) 50 -06 by mouth Heal th mg tablet 00:00: 00 lacosamide 2022-0 Yes 50mg Take 50 mg H arris (VIMPAT) 50 -06 by mouth Heal th mg tablet 00:00: 00 lacosamide 2023-0 Yes 50mg Take 50 mg H arris (VIMPAT) 50 1-06 by mouth Heal th mg tablet 00:00: 00 lacosamide 3-0 Yes 50mg Take 50 mg H arris (VIMPAT) 50 1-06 by mouth Heal th mg tablet 00:00: 00 lacosamide 3-0 Yes 50mg Take 50 mg H arris (VIMPAT) 50 1-06 by mouth Heal th mg tablet 00:00: 00 lacosamide 3-0 Yes 50mg Take 50 mg H arris (VIMPAT) 50 1-06 by mouth Heal th mg tablet 00:00: 00 lacosamide 3-0 Yes 50mg Take 50 mg H arris (VIMPAT) 50 1-06 by mouth Heal th mg tablet 00:00: 00 lacosamide 3-0 Yes 50mg Take 50 mg H arris (VIMPAT) 50 1-06 by mouth Heal th mg tablet 00:00: 00 lacosamide 3-0 Yes 50mg Take 50 mg H arris (VIMPAT) 50 1-06 by mouth Heal th mg tablet 00:00: 00 lacosamide 3-0 Yes 50mg Take 50 mg H arris (VIMPAT) 50 1-06 by mouth Heal th mg tablet 00:00: 00 lacosamide 3-0 Yes 50mg Take 50 mg H arris (VIMPAT) 50 1-06 by mouth Heal th mg tablet 00:00: 00 lacosamide 3-0 Yes 50mg Take 50 mg H arris (VIMPAT) 50 1-06 by mouth Heal th mg tablet 00:00: 00 lacosamide 3-0 Yes 50mg Take 50 mg H arris (VIMPAT) 50 1-06 by mouth Heal th mg tablet 00:00: 00 lacosamide 3-0 Yes 50mg Take 50 mg H arris (VIMPAT) 50 1-06 by mouth Heal th mg tablet 00:00: 00 lacosamide 3-0 Yes 50mg Take 50 mg H arris (VIMPAT) 50 1-06 by mouth Heal th mg tablet 00:00: 00 lacosamide 3-0 Yes 50mg Take 50 mg H arris (VIMPAT) 50 1-06 by mouth Heal th mg tablet 00:00: 00 cefdinir 2023-0 Yes [id number] 300mg Take 1 U nivers 300 mg 1-06 capsule by ity of capsule 00:00: mouth [place] 00 every 12 Medical (twelve) Branch hours. lacosamide 2023-0 Yes [id number] 50mg Take 1 U nivers 50 mg 1-06 tablet by ity of tablet 00:00: mouth in [place] 00 the Medical morning Branch and 1 tablet in the evening. levETIRAcet 2023-0 Yes [id number] 1000mg Take 1 [facility] am 1,000 mg 1-06 tablet by ity of tablet 00:00: mouth in [place] 00 the Medical morning Branch and 1 tablet in the evening. levETIRAcet 2023-0 Yes [id number] 500mg Take 1 Univers am 500 mg 1-06 tablet by ity o f tablet 00:00: mouth in [place] 00 the Medical morning Branch and 1 tablet in the evening. cefdinir 2023-0 Yes [id number] 300mg Take 1 U nivers 300 mg 1-06 capsule by ity of capsule 00:00: mouth [place] [address] every 12 Medical (twelve) Branch hours. lacosamide 2023-0 Yes [id number] 50mg Take 1 U nivers 50 mg 1-06 tablet by ity of tablet 00:00: mouth in [place] 00 the Medical morning Branch and 1 tablet in the evening. levETIRAcet 2023-0 Yes [id number] 1000mg Take 1 Univers am 1,000 mg 1-06 tablet by ity of tablet 00:00: mouth in [place] 00 the Medical morning Branch and 1 tablet in the evening. levETIRAcet 2023-0 Yes [id number] 500mg Take 1 Univers am 500 mg 1-06 tablet by ity o f tablet 00:00: mouth in [place] 00 the Medical morning Branch and 1 tablet in the evening. cefdinir 2023-0 Yes [id number] 300mg Take 1 U nivers 300 mg 1-06 capsule by ity of capsule 00:00: mouth [place] [address] every 12 Medical (twelve) Branch hours. lacosamide 2023-0 Yes [id number] 50mg Take 1 U nivers 50 mg 1-06 tablet by ity of tablet 00:00: mouth in [place] 00 the Medical morning Branch and 1 tablet in the evening. levETIRAcet 2023-0 Yes [id number] 1000mg Take 1 [facility] am 1,000 mg 1-06 tablet by ity of tablet 00:00: mouth in [place] 00 the [facility] morning Branch and 1 tablet in the evening. levETIRAcet 2023-0 Yes [id number] 500mg Take 1 Univers am 500 mg 1-06 tablet by ity o f tablet 00:00: mouth in [place] 00 the [facility] morning Branch and 1 tablet in the evening. cefdinir 2023-0 Yes [id number] 300mg Take 1 U nivers 300 mg 1-06 capsule by ity of capsule 00:00: mouth [place] 00 every 12 [facility] ([facility]) Branch hours. lacosamide 2023-0 Yes [id number] 50mg Take 1 U nivers 50 mg 1-06 tablet by ity of tablet 00:00: mouth in [place] [address] the [facility] morning Branch and 1 tablet in the evening. levETIRAcet 2023-0 Yes [id number] 1000mg Take 1 Univers am 1,000 mg 1-06 tablet by ity of tablet 00:00: mouth in [place] the [facility] morning Branch and 1 tablet in the evening. levETIRAcet 2023-0 Yes [id number] 500mg Take 1 Univers am 500 mg 1-06 tablet by ity o f tablet 00:00: mouth in [place] the [facility] morning Branch and 1 tablet in the evening. cefdinir 2023-0 Yes [id number] 300mg Take 1 U nivers 300 mg 1-06 capsule by ity of capsule 00:00: mouth [place] 00 every 12 [facility] ([facility]) Branch hours. lacosamide 2023-0 Yes [id number] 50mg Take 1 U nivers 50 mg 1-06 tablet by ity of tablet 00:00: mouth in [place] [address] the [facility] morning Branch and 1 tablet in the evening. levETIRAcet 2023-0 Yes [id number] 1000mg Take 1 [facility] am 1,000 mg 1-06 tablet by ity of tablet 00:00: mouth in [place] [address] the [facility] morning Branch and 1 tablet in the evening. levETIRAcet 2023-0 Yes [id number] 500mg Take 1 Univers am 500 mg 1-06 tablet by ity o f tablet 00:00: mouth in [place] 00 the [facility] morning Branch and 1 tablet in the evening. lacosamide 2023-0 2023- No [id number] 50mg Take 1 Univers 50 mg 05-31 tablet by ity of tablet 00:00: 04:59 mouth in [place] 00 :00 the [facility] and 1 tablet in the evening. Do all this for 90 days. levETIRAcet 2022-0 3- No [id number] 1000mg Take 1 Univers am 1,000 mg 05-31 tablet by it y of tablet 00:00: 04:59 mouth in [place] 00 :00 [facility] and 1 tablet in the evening. Do all this for 90 days. levETIRAcet 2022-0 2022- No [id number] 500mg Take 1 Univers am 500 mg 05-31 tablet by ity of tablet 00:00: 04:59 mouth in [place] 00 :00 the [facility] and 1 tablet in the evening. Do all this for 90 days. Levetiracet 2022-0 3- No 1500mg Take 1,500 Suresh am (KEPPRA) 05-31 01-30 mg by [facility] 1,000 mg 00:00: 00:00 mouth tablet 00 :00 Levetiracet 2022-0 3- No 1500mg Take 1,500 Suresh am (KEPPRA) 05-31 01-30 mg by [facility] 1,000 mg 00:00: 00:00 mouth tablet 00 :00 Levetiracet 2022-0 3- No 1500mg Take 1,500 Suresh am (KEPPRA) 05-31 01-30 mg by [facility] 1,000 mg 00:00: 00:00 mouth tablet 00 :00 Levetiracet 2022-0 3- No 1500mg Take 1,500 Suresh am (KEPPRA) 05-31 01-30 mg by [facility] 1,000 mg 00:00: 00:00 mouth tablet 00 :00 Levetiracet 3-0 3- No 1500mg Take 1,500 Suresh am (KEPPRA) 05-31 01-30 mg by [facility] 1,000 mg 00:00: 00:00 mouth tablet 00 :00 Levetiracet 3-0 3- No 1500mg Take 1,500 Suresh am (KEPPRA) 05-31 01-30 mg by [facility] 1,000 mg 00:00: 00:00 mouth tablet 00 :00 Levetiracet 2022-0 2023- No 1500mg Take 1,500 Suresh am (KEPPRA) - 01-30 mg by Health 1,000 mg 00:00: 00:00 mouth tablet 00 :00 Levetiracet 2022-0 2023- No 1500mg Take 1,500 Suresh am (KEPPRA) 05-31 01-30 mg by [facility] 1,000 mg 00:00: 00:00 mouth tablet 00 :00 levETIRAcet 2022-0 2023- No 500mg Take 500 Suresh am (KEPPRA) 05-31 01-28 mg by [facility] 500 mg 00:00: 00:00 mouth tablet 00 :00 levETIRAcet 2022-0 2023- No 500mg Take 500 Suresh am (KEPPRA) 05-31 01-28 mg by [facility] 500 mg 00:00: 00:00 mouth tablet 00 :00 levETIRAcet 2022-0 2023- No 500mg Take 500 Suresh am (KEPPRA) 05-31 01-28 mg by [facility] 500 mg 00:00: 00:00 mouth tablet 00 :00 levETIRAcet 2022-0 3- No 500mg Take 500 Suresh am (KEPPRA) 05-31 01-28 mg by [facility] 500 mg 00:00: 00:00 mouth tablet 00 :00 levETIRAcet 2022-0 2023- No 500mg Take 500 Suresh am (KEPPRA) 05-31 01-28 mg by [facility] 500 mg 00:00: 00:00 mouth tablet 00 :00 levETIRAcet 2022-0 2023- No 500mg Take 500 Suresh am (KEPPRA) 05-31 01-28 mg by [facility] 500 mg 00:00: 00:00 mouth tablet 00 :00 levETIRAcet 2022-0 2023- No 500mg Take 500 Suresh am (KEPPRA) 05-31 01-28 mg by [facility] 500 mg 00:00: 00:00 mouth tablet 00 :00 levETIRAcet 2022-0 2023- No 500mg Take 500 Suresh am (KEPPRA) 05-31 01-28 mg by [facility] 500 mg 00:00: 00:00 mouth tablet 00 :00 cefdinir 2022-0 3- No [id number] 300mg Take 1 [facility] 300 mg 1-06 01-17 capsule by ity of capsule 00:00: 05:59 mouth [place] 00 :00 every 12 Medical (twelve) Branch hours for 10 days. TAKE 1 2021-1 No TABLET 1-04 DAILY. 00:00: 00 TAKE 1 2-1 No TABLET 1-04 DAILY. 00:00: 00 TAKE 1 2-1 No TABLET 1-04 DAILY. 00:00: 00 TAKE 1 2-1 No TABLET 1-04 DAILY. 00:00: 00 1 [...] 6 0-28 hours 00:00: 00 TAKE 1 2021-1 No TABLET 0-28 DAILY. 00:00: 00 TAKE 1 2-1 No TABLET 0-28 DAILY. 00:00: 00 1 tab oral 2022-1 No every 6 0-28 hours 00:00: 00 TAKE 1 2-1 No TABLET 0-28 DAILY. 00:00: 00 TAKE ONE 2021-1 No 300 (1) 0-26 CAPSULE(S) 00:00: BY MOUTH 00 EVERY TWELVE HOURS. TAKE ONE 2021-1 No (1) 0-26 TABLET(S) 00:00: BY MOUTH 00 THREE TIMES A DAY. TAKE ONE 2021-1 No 300 (1) 0-26 CAPSULE(S) 00:00: BY MOUTH 00 EVERY TWELVE HOURS. TAKE ONE 2021-1 No 300 (1) 0-26 CAPSULE(S) 00:00: BY MOUTH 00 EVERY TWELVE HOURS. TAKE ONE 2021-1 No (1) 0-26 TABLET(S) 00:00: BY MOUTH 00 THREE TIMES A DAY. TAKE ONE 2021-1 No 300 (1) 0-26 CAPSULE(S) 00:00: BY MOUTH 00 EVERY TWELVE HOURS. TAKE ONE 2021-1 No (1) 0-26 TABLET(S) 00:00: BY MOUTH 00 THREE TIMES A DAY. TAKE ONE 2021-05 No 300 (1) 0-26 CAPSULE(S) 00:00: BY MOUTH 00 EVERY TWELVE HOURS. TAKE ONE 2021-05 No (1) 0-26 TABLET(S) 00:00: BY MOUTH 00 THREE TIMES A DAY. levothyroxi Yes 175ug QD Take 175 M [...] 01 l 10 ORAL) midodrine Yes 2.5mg Q.[id number] Take 2.5 [facility] (PROAMATINE 4-15 [id number] mg by s t ) 2.5 MG 09:30: 3D mouth 3 Hospit a tablet 01 (three) l times a day. rosuvastati Yes 10mg QD Take 10 mg [facility]i n (CRESTOR) 4-[address] 10 mg 09:30: daily. Hospita tablet 01 l lacosamide Yes 50mg Q.5D Take 50 mg M [facility]i (Vimpat) 50 4-[address] mg tablet 09:30: (two) Hospita 01 times a l day. gabapentin 2020-0 Yes 100mg Take 100 Me [facility]odi (NEURONTIN) 4-[address] 100 mg 09:30: mouth. Hospita capsule Taking 1 l tablet in the AM and 3 tablets in the PM. levETIRAcet Yes 250mg Take 250 M ethodi am (KEPPRA) 4-[address] 250 MG 09:30: mouth. Hospita tablet Taking l 1,500mg BID. levothyroxi Yes 175ug [...] l 10 ORAL) midodrine 2020-0 Yes 2.5mg Q.[id number] Take 2.5 [facility] (PROAMATINE 4-15 [id number] mg by s t ) 2.5 MG 09:30: 3D mouth 3 Hospit a tablet 01 (three) l times a day. lacosamide 2020-0 Yes 50mg Q.5D Take 50 mg M ethodi (Vimpat) 50 4-[address] mg tablet 09:30: (two) Hospita 01 times a l day. hydrOXYchlo 2020-0 Yes 200mg QD Take 200 M ethodi roQUINE 4-[address] (PLAQUENIL) 09:30: mouth Hospi ta 200 mg 01 daily. l tablet levETIRAcet 2020-0 Yes 250mg Take 250 M ethodi am (KEPPRA) 4-[address] 250 MG 09:30: mouth. Hospita tablet Taking l 1,500mg BID. levothyroxi 2020-0 Yes [...] and 3 tablets in the PM. hydrOXYchlo 2020-0 Yes 200mg QD Take 200 M ethodi [...] mouth Hospita tablet 01 nightly. l aspirin 2021-0 Yes 81mg QD Take 81 mg Meth nicolasa (ECOTRIN) 4-[address] 81 MG 09:30: daily. Hospita enteric 01 l coated tablet Lactobac Yes Take by [facility] i no.41/Bifid 4-[address] obact no.7 09:30: Hospita (PROBIOTIC- 01 l 10 ORAL) midodrine 2020-0 Yes 2.5mg Q.[id number] Take 2.5 [facility] (PROAMATINE 4-15 [id number] mg by s t ) 2.5 MG [...] Hospita tablet Taking l 1,500mg BID. levothyroxi Yes 175ug QD Take 175 M ethodi ne 4-[address] (SYNTHROID) 09:30: mouth Hospi ta 175 mcg 01 daily. l tablet rosuvastati Yes 10mg QD Take 10 mg Methodi n (CRESTOR) 4-[address] 10 mg 09:30: daily. Hospita tablet 01 l lubiproston 0 Yes 24ug Q.5D Take 24 Met hodi e (AMITIZA) 4-[address] 24 MCG 09:30: mouth 2 Hospita capsule 01 (two) l times a day with meals. gabapentin 0 Yes 100mg Take 100 Me [...] l 10 ORAL) midodrine 2020-0 Yes 2.5mg Q.[id number] Take 2.5 [facility] (PROAMATINE 4-15 [id number] mg by s t ) 2.5 MG [...] l 10 ORAL) midodrine 2020-0 Yes 2.5mg Q.[id number] Take 2.5 [facility] (PROAMATINE 4-15 [id number] mg by s t ) 2.5 MG [...] tablet 01 Taking l 1,500mg BID. levothyroxi 0 Yes [...] Hospita (PROBIOTIC- 01 l 10 ORAL) midodrine 0 Yes 2.5mg Q.[id number] Take 2.5 [facility] (PROAMATINE 4-15 [id number] mg by s t ) 2.5 MG [...] Hospita (PROBIOTIC- 01 l 10 ORAL) midodrine 0 Yes 2.5mg Q.[id number] Take 2.5 [facility] (PROAMATINE 4-15 [id number] mg by s t ) 2.5 MG [...] tablet 01 Taking l 1,500mg BID. levothyroxi 2020- Yes 175ug QD Take 175 M ethodi [...] l 10 ORAL) midodrine 2020-0 Yes 2.5mg Q.[id number] Take 2.5 [facility] (PROAMATINE 4-15 [id number] mg by s t ) 2.5 MG [...] Hospita tablet Taking l 1,500mg BID. levothyroxi Yes 175ug [...] 01 l 10 ORAL) midodrine Yes 2.5mg Q.[id number] Take 2.5 [facility] (PROAMATINE 4-15 [id number] mg by s t ) 2.5 MG [...] tablet 01 Taking l 1,500mg BID. levothyroxi 0 Yes [...] Hospita (PROBIOTIC- 01 l 10 ORAL) midodrine 0 Yes 2.5mg Q.[id number] Take 2.5 [facility] (PROAMATINE 4-15 [id number] mg by s t ) 2.5 MG [...] tablet 01 Taking l 1,500mg BID. levothyroxi 0 Yes [...] Hospita (PROBIOTIC- 01 l 10 ORAL) midodrine 0 Yes 2.5mg Q.[id number] Take 2.5 [facility] (PROAMATINE 4-15 [id number] mg by s t ) 2.5 MG [...] Hospita tablet Taking l 1,500mg BID. levothyroxi 2020- Yes 175ug QD Take 175 M ethodi [...] l 10 ORAL) midodrine 2020-0 Yes 2.5mg Q.[id number] Take 2.5 [facility] (PROAMATINE 4-15 [id number] mg by s t ) 2.5 MG [...] l 10 ORAL) midodrine 2020-0 Yes 2.5mg Q.[id number] Take 2.5 [facility] (PROAMATINE 4-15 [id number] mg by s t ) 2.5 MG [...] l 10 ORAL) midodrine 2020-0 Yes 2.5mg Q.[id number] Take 2.5 [facility] (PROAMATINE 4-15 [id number] mg by s t ) 2.5 MG 09:30: 3D mouth 3 Hospit a tablet 01 (three) l times a day. lacosamide 2020-0 Yes 50mg Q.5D Take 50 mg M ethodi (Vimpat) 50 4-[address] mg tablet 09:30: (two) Hospita 01 times a l day. lacosamide 2020-0 Yes 50mg Q.5D Take 50 mg M ethodi (Vimpat) 50 4-[address] mg tablet 09:30: (two) Hospita 01 times a l day. levETIRAcet 2020-0 Yes 250mg Take 250 M ethodi am (KEPPRA) 4-[address] 250 MG 09:30: mouth. Hospita tablet Taking l 1,500mg BID. levothyroxi 2020-0 Yes 175ug QD Take 175 M ethodi ne 4-[address] (SYNTHROID) 09:30: mouth Hospi ta 175 mcg 01 daily. l tablet rosuvastati 2020-0 Yes 10mg QD Take 10 mg [facility] n (CRESTOR) 4-[address] 10 mg 09:30: daily. Hospita tablet 01 l gabapentin 2020-0 Yes 100mg Take 100 Me [facility] (NEURONTIN) 4-[address] 100 mg 09:30: mouth. Hospita capsule 01 Taking 1 l tablet in the AM and 3 tablets in the PM. hydrOXYchlo 2020-0 Yes 200mg QD Take 200 M ethodi [...] 09:30: mouth Hospita tablet 01 nightly. l levETIRAcet 2020-0 Yes 250mg Take 250 M ethodi am (KEPPRA) 4-[address] 250 MG 09:30: mouth. Hospita tablet 01 Taking l 1,500mg BID. aspirin Yes 81mg QD Take 81 mg Meth nicolasa (ECOTRIN) 4-[address] 81 MG 09:30: daily. Hospita enteric 01 l coated tablet Lactobac Yes Take by [facility] i no.41/Bifid 4-[address] obact no.7 09:30: Hospita (PROBIOTIC- 01 l 10 ORAL) midodrine Yes 2.5mg [id number] Take 2.5 Methodi (PROAMATINE 4-15 [id number] mg by s t ) 2.5 MG 09:30: 3D mouth 3 Hospit a tablet 01 (three) l times a day. lacosamide Yes 50mg Q.5D Take 50 mg M ethodi (Vimpat) 50 4-[address] mg tablet 09:30: (two) Hospita 01 times a l day. levothyroxi Yes 175ug QD Take 175 M ethodi ne 4-[address] (SYNTHROID) 09:30: mouth Hospi ta 175 mcg 01 daily. l tablet levETIRAcet Yes 250mg Take 250 M ethodi am (KEPPRA) 4-[address] 250 MG 09:30: mouth. Hospita tablet 01 Taking l 1,500mg BID. amoxicillin 2020- No 1{tbl} 1 tablet, [facility] -clavulanat 05-31 Oral, ONCE i ty of e 05:00: 04:02 NOW, 1 Rachel (AUGMENTIN) 00 :00 dose, Tu [facility] ical 875-125 mg 05/30/20 at Bran [facility] per tablet 2300, 1 tablet Routine
Reason for Anti-Infec tive: Documented Infection< br>Documen justino Infection Site: Respirator y
Durat ion of Therapy: Other (see Comments) ketorolac 2020- No 15mg 15 mg, Unive rs (TORADOL) 05-31- Slow IV ity of injection 03:30: 02:26 Push, [place] 15 mg 00 :00 ONCE, 1 Medical dose, Tue Branch 05/30/20 at 2130, EVANS
Fa culty member approving Restricted medication : JANENE NAVAS hydrOXYzine 2020- No 25mg 25 mg, Uni vers (ATARAX) 05-31 Oral, ity of tablet 25 03:30: 02:26 [place]CE, [place] :00 dose, [facility] 05/30/20 at Branch 2129, EVANS famotidine 2020- No 20mg 20 mg, Univ ers (PEPCID 05-31 Slow IV ity of (PF)) 03:30: 02:26 Push, [place] injection 00 :00 ONCE, 1 Medical 20 mg dose, [facility] 05/30/20 at 2129, EVANS iohexol 2020- No 100mL 100 mL, Unive rs (OMNIPAQUE 05-31 Intravenou it y of 350 01:45: 01:37 s, ONCE, 1 [place] BULK-150 00 :00 dose, [facility] mL) 05/30/20 at Branch injection 1944, 100 mL Routine butalbital- 2020- No 1{tbl} 1 tablet, Univers acetaminoph 05-31 Oral, ONCE i ty of en-caff 01:45: 00:52 NOW, 1 [place] (ESGIC) 00 :00 dose, [facility] 50-325-40 05/30/20 at Branc h mg tablet 1 1944, tablet Routine diphenhydrA 2020- No 50mg 50 mg, Uni vers MINE 05-31 Slow IV ity of (BENADRYL) 00:15: 00:52 Push, [place] injection 00 :00 ONCE, 1 Medical 50 mg dose, [facility] 05/30/20 at 181, STAT methylPREDN 2020- No 40mg 40 mg, IV Univers ISolone sod 05-31 Piggyback, i ty of succ 00:15: 00:52 ONCE, 1 [place] (SOLU-MEDRO 00 :00 dose, [facility] ical L (PF)) 05/30/20 at Branch injection 181, STAT 40 mg NaCl 0.9% 2020- No 1000mL at 999 Uni vers (NS) bolus 1-05 01-06 mL/hr, ity of infusion 23:15: 02:15 1,000 mL, [place] as 1,000 mL 00 :00 IV Medical Infusion, Branch ONCE, 1 dose, 05/30/20 at 1715, EVANS albuterol 2020-0 Yes [id number] 2{puff} Inhale 2 Univers 90 1-05 Puffs ity of mcg/actuati 00:00: every 4 [place] as on inhaler 00 (four) Medical hours as Branch needed for Wheezing or Shortness of Breath. hydrOXYzine 2020-0 Yes [id number] 25mg Take 1 Univers 25 mg 1-05 tablet by ity of tablet 00:00: mouth [place] 00 every 6 Medical (six) Branch hours as needed for Itching. albuterol 2020-0 Yes [id number] 2{puff} Inhale 2 Univers 90 1-05 Puffs ity of mcg/actuati 00:00: every 4 [place] as on inhaler 00 (four) Medical hours as Branch needed for Wheezing or Shortness of Breath. albuterol 2020-0 Yes [id number] 2{puff} Inhale 2 Univers 90 1-05 Puffs ity of mcg/actuati 00:00: every 4 [place] as on inhaler 00 (four) Medical hours as Branch needed for Wheezing or Shortness of Breath. hydrOXYzine 2020-0 Yes [id number] 25mg Take 1 Univers 25 mg 1-05 tablet by ity of tablet 00:00: mouth [place] 00 every 6 Medical (six) Branch hours as needed for Itching. hydrOXYzine 2020-0 Yes [id number] 25mg Take 1 Univers 25 mg 1-05 tablet by ity of tablet 00:00: mouth [place] 00 every 6 Medical (six) Branch hours as needed for Itching. albuterol 2020-0 Yes [id number] 2{puff} Inhale 2 Univers 90 1-05 Puffs ity of mcg/actuati 00:00: every 4 [place] as on inhaler 00 (four) Medical hours as Branch needed for Wheezing or Shortness of Breath. hydrOXYzine 2020-0 Yes [id number] 25mg Take 1 Univers 25 mg 1-05 tablet by ity of tablet 00:00: mouth [place] 00 every 6 Medical (six) Branch hours as needed for Itching. albuterol Yes [id number] 2{puff} Inhale 2 Univers 90 1-05 Puffs ity of mcg/actuati 00:00: every 4 [place] as on inhaler 00 (four) Medical hours as Branch needed for Wheezing or Shortness of Breath. hydrOXYzine Yes [id number] 25mg Take 1 Univers 25 mg 1-05 tablet by ity of tablet 00:00: mouth [place] 00 every 6 Medical (six) Branch hours as needed for Itching. albuterol Yes [id number] 2{puff} Inhale 2 Univers 90 1-05 Puffs ity of mcg/actuati 00:00: every 4 [place] as on inhaler 00 (four) Medical hours as Branch needed for Wheezing or Shortness of Breath. hydrOXYzine Yes [id number] 25mg Take 1 Univers 25 mg 1-05 tablet by ity of tablet 00:00: mouth [place] 00 every 6 Medical (six) Branch hours as needed for Itching. albuterol Yes [id number] 2{puff} Inhale 2 Univers 90 1-05 Puffs ity of mcg/actuati 00:00: every 4 [place] as on inhaler 00 (four) Medical hours as Branch needed for Wheezing or Shortness of Breath. hydrOXYzine Yes [id number] 25mg Take 1 Univers 25 mg 1-05 tablet by ity of tablet 00:00: mouth [place] 00 every 6 Medical (six) Branch hours as needed for Itching. amoxicillin 2020- No [id number] 1{tbl} Take 1 Univers -clavulanat 1-05 -13 [...] Time Observation Value Comments Source Systolic blood 2022-11-08 01:34:11 111 mm[Hg] [facility] Diastolic blood 2022-11-08 01:34:11 81 mm[Hg] [facility] Heart rate 2022-11-08 01:34:11 60 /min [facility] Respiratory rate 2022-11-08 01:34:11 13 /min [facility] Oxygen saturation in 2022-11-08 01:34:11 94 /min [facility] Arterial blood by [facility] Pulse oximetry Branch Body temperature 2022-11-07 20:40:00 36.39 Yanet [facility] Body height 2022-11-07 20:40:00 180.3 cm [facility] Body weight 2022-11-07 20:40:00 90.719 kg [facility] BMI 2022-11-07 20:40:00 27.89 kg/m2 [facility] Systolic blood 2022-10-28 22:00:00 113 mm[Hg] Univer sity of [facility] Diastolic blood 2022-10-28 22:00:00 69 mm[Hg] Unive rsity [facility] Heart rate 2022-10-28 22:00:00 61 /min [facility] Respiratory rate 2022-10-28 22:00:00 20 /min [facility] in 2022-10-28 22:00:00 96 /min [facility] Arterial blood by [facility] Pulse oximetry Branch Body temperature 2022-10-28 19:05:00 37 Yanet [facility] Body height 2022-10-28 19:05:00 180.3 cm [facility] Body weight 2022-10-28 19:05:00 90.719 kg [facility] BMI 2022-10-28 19:05:00 27.89 kg/m2 [facility] Systolic blood 2022-06-24 07:00:00 98 mm[Hg] [facility] Diastolic blood 2022-06-24 07:00:00 64 mm[Hg] [facility] Heart rate 2022-06-24 07:00:00 64 /min [facility] temperature 2022-06-24 07:00:00 36.5 Yanet [facility] Respiratory rate 2022-06-24 07:00:00 18 /min [facility] Systolic blood 2022-06-24 07:00:00 98 mm[Hg] [facility] pressure Diastolic blood 2022-06-24 07:00:00 64 mm[Hg] [facility] Heart rate 2022-06-24 07:00:00 64 /min [facility] Body temperature 2022-06-24 07:00:00 36.5 Yan[facility] Respiratory rate 2022-06-24 07:00:00 18 /min [facility] Oxygen saturation in 2022-06-24 03:00:00 96 /min [facility] Arterial blood by Pulse oximetry Oxygen saturation in 2022-06-24 03:00:00 96 /min [facility] Arterial blood by Pulse oximetry Body height 2022-06-21 17:53:00 180.3 cm [facility] Body weight 2022-06-21 17:53:00 106.595 kg [facility] BMI 2022-06-21 17:53:00 32.78 kg/m2 [facility] Body height 2022-06-21 17:53:00 180.3 cm [facility] weight 2022-06-21 17:53:00 106.595 kg [facility] BMI 2022-06-21 17:53:00 32.78 kg/m2 [facility] Systolic blood 2022-06-24 07:00:00 98 mm[Hg] [facility] pressure Diastolic blood 2022-06-24 07:00:00 64 mm[Hg] [facility] Heart rate 2022-06-24 07:00:00 64 /min [facility] Body temperature 2022-06-24 07:00:00 36.5 Yan[facility] Respiratory rate 2022-06-24 07:00:00 18 /min [facility] Systolic blood 2022-06-24 07:00:00 98 mm[Hg] [facility] pressure Diastolic blood 2022-06-24 07:00:00 64 mm[Hg] [facility] Heart rate 2022-06-24 07:00:00 64 /min [facility] Body temperature 2022-06-24 07:00:00 36.5 Yanet [facility] Respiratory rate 2022-06-24 07:00:00 18 /min [facility] Oxygen saturation in 2022-06-24 03:00:00 96 /min [facility] Arterial blood by Pulse oximetry Oxygen saturation in 2022-06-24 03:00:00 96 /min [facility] Arterial blood by Pulse oximetry Body height 2022-06-21 17:53:00 180.3 cm [facility] Body weight 2022-06-21 17:53:00 106.595 kg [facility] BMI 2022-06-21 17:53:00 32.78 kg/m2 [facility] Body height 2022-06-21 17:53:00 180.3 cm [facility] ealth Body weight 2022-06-21 17:53:00 106.595 kg [facility] BMI 2022-06-21 17:53:00 32.78 kg/m2 [facility] Respiratory rate 2022-06-01 00:00:00 11 /min [facility] [place] [facility] Systolic blood 2022-06-01 00:00:00 110 mm[Hg] Univer sity of pressure [place] [facility] Diastolic blood 2022-06-01 00:00:00 80 mm[Hg] Unive rsity of pressure [place] [facility] [place] Heart rate 2022-06-01 00:00:00 81 /min [facility]i ty [facility] [place] [facility] Oxygen saturation in 2022-05-31 23:30:00 98 /min University of Arterial blood by [facility] Pulse oximetry Branch Body weight 2022-05-31 21:04:00 95.255 kg [facility]i ty [facility] [place] [facility] [place] BMI 2022-05-31 21:04:00 29.29 kg/m2 [facility] [place] [facility] Systolic blood 2020-05-31 03:01:00 105 mm[Hg] Univer sity of pressure [place] [facility] Diastolic blood 2020-05-31 03:01:00 71 mm[Hg] Unive rsity of pressure [place] [facility] Heart rate 2020-05-31 03:01:00 73 /min [facility]i ty [facility] [place] [facility] Body temperature 2020-05-31 03:01:00 36.56 Yanet Univ ers[facility] [place] [facility] Respiratory rate 2020-05-31 03:01:00 18 /min Univ [facility] [place] [facility] Oxygen saturation in 2020-05-31 03:01:00 98 /min University of Arterial blood by [facility] Pulse oximetry Branch Body height 2020-05-30 21:27:00 180.3 cm [facility] [place] [facility] Body weight 2020-05-30 21:27:00 92.987 kg [facility] [place] [facility] BMI 2020-05-30 21:27:00 28.59 kg/m2 [facility] [place] [facility] Systolic blood 2020-05-31 03:01:00 105 mm[Hg] Univer sity of pressure [place] [facility] Diastolic blood 2020-05-31 03:01:00 71 mm[Hg] Unive rsity of pressure [facility] Heart rate 2020-05-31 03:01:00 73 /min Universi ty [facility] Body temperature 2020-05-31 03:01:00 36.56 Yanet Univ ersity [facility] Respiratory rate 2020-05-31 03:01:00 18 /min [facility] in 2020-05-31 03:01:00 98 /min University Arterial blood by [facility] Pulse oximetry Branch Body height 2020-05-30 21:27:00 180.3 cm Universi [facility] Body weight 2020-05-30 21:27:[address] 2020-05-30 21:27:00 28.59 kg/m2 [facility] Systolic blood 2022-06-24 07:00:00 98 mm[Hg] [facility] pressure Diastolic blood 2022-06-24 07:00:00 64 mm[Hg] Zaid barnes [facility] pressure Heart rate 2022-06-24 07:00:00 64 /min [facility] Body temperature 2022-06-24 07:00:00 36.5 Yanet [facility] Respiratory rate 2022-06-24 07:00:00 18 /min [facility] Oxygen saturation in 2022-06-24 03:00:00 96 /min [facility] Arterial blood by Pulse oximetry Body height 2022-06-21 17:53:00 180.3 cm [facility] Body weight 2022-06-21 17:53:00 106.595 kg [facility] BMI 2022-06-21 17:53:00 32.78 kg/m2 [facility] BP Systolic 2022-06-10 15:11:00 104 mm[Hg] BP [...] Date / Time Performing Clinician Source Performed POCT TEST 2022-11-07 21:42:00 Jayda Hernandez [facility] BLOOD CULTURE SCREEN 2022-11-07 21:34:00 Jayda Hernandez [facility] LIPASE 2022-11-07 21:32:00 Jayda Hernandez [facility] COMP. METABOLIC PANEL 2022-11-07 21:32:00 Jayda Hernandez [facility] ([id number] CBC WITH DIFF 2022-11-07 21:32:00 Jayda Hernandez [facility] URINALYSIS 2022-11-07 21:32:00 David [facility] BLOOD CULTURE SCREEN 2022-11-07 21:20:00 Jayda Hernandez [facility] CONSENT/REFUSAL FOR 2022-11-07 20:32:35 [facility] URINALYSIS 2022-10-28 20:12:00 Jake Renner [facility] LIPASE 2022-10-28 19:38:00 Jake Renner [facility] COMP. METABOLIC PANEL 2022-10-28 19:38:00 [facility] Renner [facility] ([id number]) [facility] CBC WITH DIFF 2022-10-28 19:38:00 Jake Renner [facility] LACTIC ACID WHOLE BLOOD 2022-10-28 19:38:00 Jake Renner [facility] CONSENT/REFUSAL FOR 2022-10-28 18:56:54 [facility] Name Medical Branch REFERRAL- 2022-09-23 05:01:00 Doctor Unassigned, No [facility] REQUEST/RESPONSE Name Medical Branch BASIC METABOLIC PANEL 2022-06-24 03:50:00 Chemo Al [facility] CBC/DIFF 2022-06-24 03:50:00 Chemo Al alth CBC 2022-06-24 03:50:00 AlChemo torres alth CBC/DIFF 2022-06-24 03:50:00 AlChemo barnes alth BASIC METABOLIC PANEL 2022-06-24 03:50:00 Al, Chemo H [facility] CBC 2022-06-24 03:50:00 Chemo Al alth BASIC METABOLIC PANEL 2022-06-24 03:50:00 AlChemo barnes [facility] CBC/DIFF 2022-06-24 03:50:00 Chemo Al alth CBC 2022-06-24 03:50:00 Chemo Al He alth NUTRITION CONSULT 2022-06-22 22:07:16 [facility] NUTRITION CONSULT 2022-06-22 22:07:16 Stormy Mcdaniel [facility] ASSESSMENT NUTRITION CONSULT 2022-06-22 22:07:16 Stormy Mcdaniela lth ASSESSMENT NUTRITION CONSULT 2022-06-22 19:44:51 Stormy Mcdaniela lth ASSESSMENT NUTRITION CONSULT 2022-06-22 19:44:51 Stormy Mcdaniel lth ASSESSMENT NUTRITION CONSULT 2022-06-22 19:44:51 Stormy Mcdaniel lth ASSESSMENT 12 LEAD EKG 2022-06-22 06:51:58 Sugey Morales h 12 LEAD EKG 2022-06-22 06:51:58 Sugey Morales h 12 LEAD EKG 2022-06-22 06:51:58 Sugey Morales CORONAVIRUS, COVID-19, 2022-06-22 03:38:00 Leanna Schaefer [facility] MANJIT SARS-COV-2, FLU A/B, 2022-06-22 03:38:00 emiljohn [facility] RSV SARS-COV-2, FLU A/B, 2022-06-22 03:38:00 [facility] RSV CORONAVIRUS, COVID-19, 2022-06-22 03:38:00 Leanna rubin [facility] MANJIT CORONAVIRUS, COVID-19, 2022-06-22 03:38:00 [facility], FLU A/B, 2022-06-22 03:38:00 [facility] RSV URINE DRUG SCREEN 2022-06-21 22:05:00 Charli Chaudhari [facility] URINE DRUG SCREEN 2022-06-21 22:05:00 Charli Chaudhari [facility] URINE DRUG SCREEN 2022-06-21 22:05:00 Charli Chaudhari [facility] BASIC METABOLIC PANEL 2022-06-21 22:04:00 Charli Chaudhari [facility] CBC/DIFF 2022-06-21 22:04:00 [facility] FREE T3 2022-06-21 22:04:00 S[facility] Morales [facility]alt [facility] FREE T4 2022-06-21 22:04:00 [facility] TOTAL T3 2022-06-21 22:04:00 Sugey Morales Healt h THYROID STIMULATING 2022-06-21 22:04:00 Juana Gomez ealth HORMONE (TSH) CBC 2022-06-21 22:04:00 Charli Chaudhari Healt h CBC/DIFF 2022-06-21 22:04:00 Charli Chaudhari Healt h BASIC METABOLIC PANEL 2022-06-21 22:04:00 Charli Chaudhari [facility] CBC 2022-06-21 22:04:00 [facility] THYROID STIMULATING 2022-06-21 22:04:00 Juana Gomez [facility] HORMONE (TSH) FREE T4 2022-06-21 22:04:00 Juana Gomez [facility]alt [facility] FREE T3 2022-06-21 22:04:00 Sugey Morales Healt h TOTAL T3 2022-06-21 22:04:00 Sugey Morales Healt h BASIC METABOLIC PANEL 2022-06-21 22:04:00 Charil Chaudhari [facility] CBC/DIFF 2022-06-21 22:04:00 Charli Chaudhari Healt h FREE T3 2022-06-21 22:04:00 Sugey Morales Healt h FREE T4 2022-06-21 22:04:00 Juana Gomez [facility] TOTAL T3 2022-06-21 22:04:00 [facility]ugey Morales [facility] THYROID STIMULATING 2022-06-21 22:04:00 Juana [facility] HORMONE (TSH) CBC 2022-06-21 22:04:00 [facility]- 2022-06-10 06:01:00 Doctor Unassigned, No [facility] REQUEST/RESPONSE Name [facility] Branch URINALYSIS 2022-05-31 22:18:00 Genia Meade [facility] CT STROKE ANGIOGRAM 2022-05-31 21:59:00 Genia Meade [facility] HEAD [facility] Branch CT STROKE ANGIOGRAM 2022-05-31 21:59:00 Genia Meade [facility] NECK [facility] CT STROKE HEAD WO 2022-05-31 21:57:00 Genia Meade [facility] CONTRAST [facility] TROPONIN I 2022-05-31 21:36:00 Genia Meade [facility] BASIC METABOLIC PANEL 2022-05-31 21:36:00 Genia Meade [facility] (NA, K, CL, CO2, Medical Branch GLUCOSE, BUN, CREATININE, CA) CBC WITHOUT DIFF 2022-05-31 21:36:00 Genia Meade [facility] PROTHROMBIN TIME / INR 2022-05-31 21:36:00 [facility] 2022-05-31 21:36:00 Genia Meade [facility] THRMPLAS JAMIE Medical Branch POCT GLUCOSE 2022-05-31 21:35:00 Genia Meade [facility] (AUTOMATED) Medical Branch CONSENT/REFUSAL FOR 2022-05-31 20:58:19 Doctor Unassigned, No [facility] DIAGNOSIS AND TREATMENT Name Medical Branch URINALYSIS 2020-05-31 03:43:00 Janene Navas [facility] CT CHEST PULMONARY 2020-05-31 01:43:20 Janene Navas [facility] ANGIOGRAM Medical Branch POCT TEST 2020-05-31 01:29:00 Janene Navas [facility] COVID-19 (ID NOW RAPID 2020-05-31 00:53:00 Janene Navas [facility] TESTING) Medical Branch XR CHEST 1 VW 2020-05-31 00:09:22 Janene Navas [facility] TROPONIN I 2020-05-31 00:03:00 Janene Navas [facility] COMP. METABOLIC PANEL 2020-05-31 00:03:00 Janene Navas [facility] ([id number]) Medical Branch CBC WITH DIFF 2020-05-31 00:03:00 Janene Navas [facility] D-DIMER 2020-05-31 00:03:00 Janene Navas [facility] NOTICE OF PRIVACY 2020-05-30 21:02:17 Doctor Unassigned, No [facility] PRACTICES Name Medical Branch Plan of Care Planned Activity Planned Date Details Comments Source Future Scheduled 2023-02-23 IMM Influenza Seasonal [facility] Test 00:00:00 (>/= 19 yrs) [code = IMM Influenza Seasonal (>/= 19 yrs)] Future Scheduled 2023-02-23 [facility] Influenza Seasonal [facility] Test 00:00:00 (>/= 19 yrs) [code = IMM Influenza Seasonal (>/= 19 yrs)] Future Scheduled 2023-02-23 [facility] Influenza Seasonal [facility] Test 00:00:00 (>/= 19 yrs) [code = IMM Influenza Seasonal (>/= 19 yrs)] Future Scheduled 2023-02-23 [facility] Influenza Seasonal [facility] Test 00:00:00 (>/= 19 yrs) [code = IMM Influenza Seasonal (>/= 19 yrs)] Future Scheduled 2023-02-23 [facility] Influenza [facility]al [facility] Test 00:00:00 (>/= 19 yrs) [code = IMM Influenza Seasonal (>/= 19 yrs)] Future Scheduled 2022-11-10 COVID-19 VACCINE (#1) [facility] Test 17:26:25 [code = COVID-19 VACCINE (#1)] Future Scheduled 2022-11-10 Pneumococcal Vaccine: [facility] Test 17:26:25 Pediatrics (0 to 5 Years) and At-Risk Patients (6 to 64 Years) (1 - PCV) [code = Pneumococcal Vaccine: Pediatrics (0 to 5 Years) and At-Risk Patients (6 to 64 Years) (1 - PCV)] Future Scheduled 2022-11-10 Hepatitis C screening [facility] Test 17:26:25 (procedure) [code = 469322093] Future Scheduled 2022-11-10 [facility] Test 17:26:25 malignant neoplasm of cervix (procedure) [code = 423502491] Future Scheduled 2022-11-10 BREAST CANCER [facility] Test 17:26:25 SCREENING [code = BREAST CANCER SCREENING] Future Scheduled 2022-11-10 INFLUENZA VACCINE Method [facility] Test 17:26:25 [code = INFLUENZA VACCINE] Future Scheduled 2022-08-26 COVID-19 VACCINE (#1) [facility] Test 03:05:42 [code = COVID-19 VACCINE (#1)] Future Scheduled 2022-08-26 Pneumococcal Vaccine: [facility] Test 03:05:42 Pediatrics (0 to 5 Years) and At-Risk Patients (6 to 64 Years) (1 - PCV) [code = Pneumococcal Vaccine: Pediatrics (0 to 5 Years) and At-Risk Patients (6 to 64 Years) (1 - PCV)] Future Scheduled 2022-08-26 Hepatitis C screening [facility] Test 03:05:42 (procedure) [code = 384521693] Future Scheduled 2022-08-26 [facility] Test 03:05:42 malignant neoplasm of cervix (procedure) [code = 660838605] Future Scheduled 2022-08-26 BREAST CANCER [facility] Test 03:05:42 SCREENING [code = BREAST CANCER SCREENING] Future Scheduled 2022-08-26 INFLUENZA VACCINE Method [facility] Test 03:05:42 [code = INFLUENZA VACCINE] Future Scheduled 2022-08-26 COVID-19 VACCINE (#1) [facility] Test 03:05:42 [code = COVID-19 VACCINE (#1)] Future Scheduled 2022-08-26 Pneumococcal Vaccine: [facility] Test 03:05:42 Pediatrics (0 to 5 Years) and At-Risk Patients (6 to 64 Years) (1 - PCV) [code = Pneumococcal Vaccine: Pediatrics (0 to 5 Years) and At-Risk Patients (6 to 64 Years) (1 - PCV)] Future Scheduled 2022-08-26 Hepatitis C screening [facility] Test 03:05:42 (procedure) [code = 262235416] Future Scheduled 2022-08-26 [facility] Test 03:05:42 malignant neoplasm of cervix (procedure) [code = 010756885] Future Scheduled 2022-08-26 BREAST CANCER [facility] Test 03:05:42 SCREENING [code = BREAST CANCER SCREENING] Future Scheduled 2022-08-26 INFLUENZA VACCINE Method [facility] Test 03:05:42 [code = INFLUENZA VACCINE] Future Scheduled 2022-08-26 COVID-19 VACCINE (#1) [facility] Test 03:05:42 [code = COVID-19 VACCINE (#1)] Future Scheduled 2022-08-26 Pneumococcal Vaccine: [facility] Test 03:05:42 Pediatrics (0 to 5 Years) and At-Risk Patients (6 to 64 Years) (1 - PCV) [code = Pneumococcal Vaccine: Pediatrics (0 to 5 Years) and At-Risk Patients (6 to 64 Years) (1 - PCV)] Future Scheduled 2022-08-26 Hepatitis C screening [facility] Test 03:05:42 (procedure) [code = 321087840] Future Scheduled 2022-08-26 [facility] Test 03:05:42 malignant neoplasm of cervix (procedure) [code = 752119714] Future Scheduled 2022-08-26 BREAST CANCER [facility] Test 03:05:42 SCREENING [code = BREAST CANCER SCREENING] Future Scheduled 2022-08-26 [facility] 03:05:42 [code = INFLUENZA VACCINE] Future Scheduled 2022-08-26 COVID-19 VACCINE (#1) [facility] Test 03:05:42 [code = COVID-19 VACCINE (#1)] Future Scheduled 2022-08-26 Pneumococcal Vaccine: [facility] Test 03:05:42 Pediatrics (0 to 5 Years) and At-Risk Patients (6 to 64 Years) (1 - PCV) [code = Pneumococcal Vaccine: Pediatrics (0 to 5 Years) and At-Risk Patients (6 to 64 Years) (1 - PCV)] Future Scheduled 2022-08-26 Hepatitis C screening [facility] Test 03:05:42 (procedure) [code = 247923358] Future Scheduled 2022-08-26 [facility] Test 03:05:42 malignant neoplasm of cervix (procedure) [code = 375759938] Future Scheduled 2022-08-26 BREAST CANCER [facility] Test 03:05:42 SCREENING [code = BREAST CANCER SCREENING] Future Scheduled 2022-08-26 INFLUENZA VACCINE [facility] Test 03:05:42 [code = INFLUENZA VACCINE] Future Scheduled 2022-08-05 COVID-19 VACCINE (#1) [facility] Test 09:36:51 [code = COVID-19 VACCINE (#1)] Future Scheduled 2022-08-05 Pneumococcal Vaccine: [facility] Test 09:36:51 Pediatrics (0 to 5 Years) and At-Risk Patients (6 to 64 Years) (1 - PCV) [code = Pneumococcal Vaccine: Pediatrics (0 to 5 Years) and At-Risk Patients (6 to 64 Years) (1 - PCV)] Future Scheduled 2022-08-05 Hepatitis C screening [facility] [facility] Test 09:36:51 (procedure) [code = 189103846] Future Scheduled 2022-08-05 [facility] 09:[facility]:51 malignant neoplasm of cervix (procedure) [code = 952694894] Future Scheduled 2022-08-05 BREAST CANCER [facility] Test 09:36:51 SCREENING [code = BREAST CANCER SCREENING] Future Scheduled 2022-08-05 [facility]ACCINE [facility] 09:36:51 [code = INFLUENZA VACCINE] Future Scheduled 2022-08-05 COVID-19 VACCINE (#1) [facility] Test 09:36:51 [code = COVID-19 VACCINE (#1)] Future Scheduled 2022-08-05 Pneumococcal Vaccine: [facility] Test 09:36:51 Pediatrics (0 to 5 Years) and At-Risk Patients (6 to 64 Years) (1 - PCV) [code = Pneumococcal Vaccine: Pediatrics (0 to 5 Years) and At-Risk Patients (6 to 64 Years) (1 - PCV)] Future Scheduled 2022-08-05 Hepatitis C screening [facility] Test 09:36:51 (procedure) [code = 804292234] Future Scheduled 2022-08-05 [facility] 09:36:51 malignant neoplasm of cervix (procedure) [code = 042170532] Future Scheduled 2022-08-05 BRE[facility]ER [facility] Test 09:36:51 SCREENING [code = BREAST CANCER SCREENING] Future Scheduled 2022-08-05 [facility]ACCINE [facility] 09:36:51 [code = INFLUENZA VACCINE] Future Scheduled 2022-06-21 COVID-19 VACCINE (#1) [facility] Test 14:08:30 [code = COVID-19 VACCINE (#1)] Future Scheduled 2022-06-21 Pneumococcal Vaccine: [facility] Test 14:08:30 Pediatrics (0 to 5 Years) and At-Risk Patients (6 to 64 Years) (1 - PCV) [code = Pneumococcal Vaccine: Pediatrics (0 to 5 Years) and At-Risk Patients (6 to 64 Years) (1 - PCV)] Future Scheduled 2022-06-21 Hepatitis C screening [facility] Test 14:08:30 (procedure) [code = 922023851] Future Scheduled 2022-06-21 [facility] 14:08:30 malignant neoplasm of cervix (procedure) [code = 150821193] Future Scheduled 2022-06-21 BRE[facility]ER [facility] Test 14:08:30 SCREENING [code = BREAST CANCER SCREENING] Future Scheduled 2022-06-21 [facility]ACCINE [facility] 14:08:30 [code = INFLUENZA VACCINE] Future Scheduled 2022-06-21 COVID-19 VACCINE (#1) [facility] Test 14:08:30 [code = COVID-19 VACCINE (#1)] Future Scheduled 2022-06-21 Pneumococcal Vaccine: [facility] Test 14:08:30 Pediatrics (0 to 5 Years) and At-Risk Patients (6 to 64 Years) (1 - PCV) [code = Pneumococcal Vaccine: Pediatrics (0 to 5 Years) and At-Risk Patients (6 to 64 Years) (1 - PCV)] Future Scheduled 2022-06-21 Hepatitis C screening [facility] Test 14:08:30 (procedure) [code = 512677016] Future Scheduled 2022-06-21 [facility] Test 14:08:30 malignant neoplasm of cervix (procedure) [code = 671464644] Future Scheduled 2022-06-21 [facility]ER [facility] Test 14:08:30 SCREENING [code = BREAST CANCER SCREENING] Future Scheduled 2022-06-21 [facility]ZA VACCINE [facility] Test 14:08:30 [code = INFLUENZA VACCINE] Future Scheduled 2022-06-17 COVID-19 VACCINE (#1) [facility] Test 14:18:23 [code = COVID-19 VACCINE (#1)] Future Scheduled 2022-06-17 Pneumococcal Vaccine: [facility] Test 14:18:23 Pediatrics (0 to 5 Years) and At-Risk Patients (6 to 64 Years) (1 - PCV) [code = Pneumococcal Vaccine: Pediatrics (0 to 5 Years) and At-Risk Patients (6 to 64 Years) (1 - PCV)] Future Scheduled 2022-06-17 Hepatitis C screening [facility] Test 14:18:23 (procedure) [code = 521678737] Future Scheduled 2022-06-17 [facility] Test 14:18:23 malignant neoplasm of cervix (procedure) [code = 261498148] Future Scheduled 2022-06-17 [facility] Test 14:18:23 SCREENING [code = BREAST CANCER SCREENING] Future Scheduled 2022-06-17 [facility]ACCINE [facility] 14:18:23 [code = INFLUENZA VACCINE] Future Scheduled 2022-05-20 COVID-19 VACCINE (#1) [facility] Test 06:48:16 [code = COVID-19 VACCINE (#1)] Future Scheduled 2022-05-20 Pneumococcal Vaccine: [facility] Test 06:48:16 Pediatrics (0 to 5 Years) and At-Risk Patients (6 to 64 Years) (1 - PCV) [code = Pneumococcal Vaccine: Pediatrics (0 to 5 Years) and At-Risk Patients (6 to 64 Years) (1 - PCV)] Future Scheduled 2022-05-20 Hepatitis C screening [facility] Test 06:48:16 (procedure) [code = 796299603] Future Scheduled 2022-05-20 Screening for [facility] Test 06:48:16 malignant neoplasm of cervix (procedure) [code = 491530081] Future Scheduled 2022-05-20 BREAST CANCER [facility] Test 06:48:16 SCREENING [code = BREAST CANCER SCREENING] Future Scheduled 2022-05-20 INFLUENZA VACCINE Method [facility] Test 06:48:16 [code = INFLUENZA VACCINE] Future Scheduled 2022-05-20 COVID-19 VACCINE (#1) [facility] Test 06:48:16 [code = COVID-19 VACCINE (#1)] Future Scheduled 2022-05-20 Pneumococcal Vaccine: [facility] Test 06:48:16 Pediatrics (0 to 5 Years) and At-Risk Patients (6 to 64 Years) (1 - PCV) [code = Pneumococcal Vaccine: Pediatrics (0 to 5 Years) and At-Risk Patients (6 to 64 Years) (1 - PCV)] Future Scheduled 2022-05-20 Hepatitis C screening [facility] Test 06:48:16 (procedure) [code = 568311813] Future Scheduled 2022-05-20 [facility] Test 06:48:16 malignant neoplasm of cervix (procedure) [code = 191933488] Future Scheduled 2022-05-20 BREAST CANCER [facility] Test 06:48:16 SCREENING [code = BREAST CANCER SCREENING] Future Scheduled 2022-05-20 INFLUENZA VACCINE Method [facility] Test 06:48:16 [code = INFLUENZA VACCINE] Future Scheduled 2022-04-16 HEPATITIS B VACCINES Met [facility] Test 11:13:19 (1 of 3 - 3-dose series) [code = HEPATITIS B VACCINES (1 of 3 - 3-dose series)] Future Scheduled 2022-04-16 COVID-19 VACCINE (#1) [facility] Test 11:13:19 [code = COVID-19 VACCINE (#1)] Future Scheduled 2022-04-16 Pneumococcal Vaccine: [facility] Test 11:13:19 Pediatrics (0 to 5 Years) and At-Risk Patients (6 to 64 Years) (1 - PCV) [code = Pneumococcal Vaccine: Pediatrics (0 to 5 Years) and At-Risk Patients (6 to 64 Years) (1 - PCV)] Future Scheduled 2022-04-16 Hepatitis C screening [facility] Test 11:13:19 (procedure) [code = 239798277] Future Scheduled 2022-04-16 Screening for [facility] Test 11:13:19 malignant neoplasm of cervix (procedure) [code = 565906591] Future Scheduled 2022-04-16 BREAST CANCER [facility] Test 11:13:19 SCREENING [code = BREAST CANCER SCREENING] Future Scheduled 2022-04-16 INFLUENZA VACCINE Method [facility] Test 11:13:19 [code = INFLUENZA VACCINE] Future Scheduled 2022-04-16 HEPATITIS B VACCINES Met [facility] Test 11:13:19 (1 of 3 - 3-dose series) [code = HEPATITIS B VACCINES (1 of 3 - 3-dose series)] Future Scheduled 2022-04-16 COVID-19 VACCINE (#1) [facility] Test 11:13:19 [code = COVID-19 VACCINE (#1)] Future Scheduled 2022-04-16 Pneumococcal Vaccine: [facility] Test 11:13:19 Pediatrics (0 to 5 Years) and At-Risk Patients (6 to 64 Years) (1 - PCV) [code = Pneumococcal Vaccine: Pediatrics (0 to 5 Years) and At-Risk Patients (6 to 64 Years) (1 - PCV)] Future Scheduled 2022-04-16 Hepatitis C screening [facility] Test 11:13:19 (procedure) [code = 761051287] Future Scheduled 2022-04-16 Screening for [facility] Test 11:13:19 malignant neoplasm of cervix (procedure) [code = 144189473] Future Scheduled 2022-04-16 BREAST CANCER [facility] Test 11:13:19 SCREENING [code = BREAST CANCER SCREENING] Future Scheduled 2022-04-16 INFLUENZA VACCINE [facility] Test 11:13:19 [code = INFLUENZA VACCINE] Future Scheduled 2022-02-23 [facility] Test 00:00:00 (>/= 19 yrs) [code = IMM Influenza Seasonal (>/= 19 yrs)] Future Scheduled 2022-02-23 [facility]MM Influenza [facility] Test 00:00:00 (>/= 19 yrs) [code = IMM Influenza Seasonal (>/= 19 yrs)] Future Scheduled 2022-02-23 [facility] Test 00:00:00 (>/= 19 yrs) [code = IMM Influenza Seasonal (>/= 19 yrs)] Future Scheduled 2022-01-25 HEPATITIS B VACCINES [facility] Test 19:24:17 (1 of 3 - 3-dose series) [code = HEPATITIS B VACCINES (1 of 3 - 3-dose series)] Future Scheduled 2022-01-25 COVID-19 VACCINE (#1) [facility] Test 19:24:17 [code = COVID-19 VACCINE (#1)] Future Scheduled 2022-01-25 Pneumococcal Vaccine: [facility] Test 19:24:17 Pediatrics (0 to 5 Years) and At-Risk Patients (6 to 64 Years) (1 - PCV) [code = Pneumococcal Vaccine: Pediatrics (0 to 5 Years) and At-Risk Patients (6 to 64 Years) (1 - PCV)] Future Scheduled 2022-01-25 Hepatitis C screening [facility] Test 19:24:17 (procedure) [code = 511928457] Future Scheduled 2022-01-25 Screening for [facility] Test 19:24:17 malignant neoplasm of cervix (procedure) [code = 420125992] Future Scheduled 2022-01-25 BREAST CANCER [facility] Test 19:24:17 SCREENING [code = BREAST CANCER SCREENING] Future Scheduled 2022-01-25 INFLUENZA VACCINE [facility] Test 19:24:17 [code = INFLUENZA VACCINE] Future Scheduled 2019 [facility] Test 00:00:00 (Yearly) [code = Breast Cancer Scrn (Yearly)] Future Scheduled 2019 [facility] Test 00:00:00 (Yearly) [code = Breast Cancer Scrn (Yearly)] Future Scheduled 2019 [facility] Test 00:00:00 (Yearly) [code = Breast Cancer Scrn (Yearly)] Future Scheduled 2019 [facility] Test 00:00:00 (Yearly) [code = Breast Cancer Scrn (Yearly)] Future Scheduled 2019 [facility] Test 00:00:00 (Yearly) [code = Breast Cancer Scrn (Yearly)] Future Scheduled 2019 [facility] Test 00:00:00 (Yearly) [code = Breast Cancer Scrn (Yearly)] Future Scheduled 2019 [facility] Test 00:00:00 (Yearly) [code = Breast Cancer Scrn (Yearly)] Future Scheduled 2019 [facility] Test 00:00:00 (Yearly) [code = Breast Cancer Scrn (Yearly)] Future Scheduled 2009 [facility]00 malignant neoplasm of cervix (procedure) [code = 298269887] Future Scheduled 2009 [facility] 00:[facility]:00 malignant neoplasm of cervix (procedure) [code = 895063219] Future Scheduled 2009 [facility] 00:00:00 malignant neoplasm of cervix (procedure) [code = 843065866] Future Scheduled 2009 [facility] 00:00:00 malignant neoplasm of cervix (procedure) [code = 910496117] Future Scheduled 2009 [facility] 00:00:00 malignant neoplasm of cervix (procedure) [code = 152738023] Future Scheduled 2009 [facility] 00:00:00 malignant neoplasm of cervix (procedure) [code = 217667201] Future Scheduled 2009 [facility] 00:00:00 malignant neoplasm of cervix (procedure) [code = 725136767] Future Scheduled 2009 [facility] 00:00:00 malignant neoplasm of cervix (procedure) [code = 479113460] Future Scheduled 2009 [facility] 00:00:00 malignant neoplasm of cervix (procedure) [code = 306260442] Future Scheduled 2009 [facility] 00:00:00 malignant neoplasm of cervix (procedure) [code = 434079482] Future Scheduled 2009 [facility] 00:00:00 malignant neoplasm of cervix (procedure) [code = 554792910] Future Scheduled 2009 [facility] 00:00:00 malignant neoplasm of cervix (procedure) [code = 366372631] Future Scheduled 2009 [facility] 00:00:00 malignant neoplasm of cervix (procedure) [code = 774760873] Future Scheduled 2009 [facility] 00:00:00 malignant neoplasm of cervix (procedure) [code = 107916829] Future Scheduled 2009 [facility] 00:00:00 malignant neoplasm of cervix (procedure) [code = 509479767] Future Scheduled 2009 [facility] 00:00:00 malignant neoplasm of cervix (procedure) [code = 635849874] Future Scheduled 1979 COVID-19 Vaccine (#1) [facility] Test 00:00:00 [code = COVID-19 Vaccine (#1)] Future Scheduled 1979 COVID-19 Vaccine (#1) [facility] Test 00:00:00 [code = COVID-19 Vaccine (#1)] Future Scheduled 1979 COVID-19 Vaccine (#1) [facility] Test 00:00:00 [code = COVID-19 Vaccine (#1)] Future Scheduled 1979 COVID-19 Vaccine (#1) [facility] Test 00:00:00 [code = COVID-19 Vaccine (#1)] Future Scheduled 1979 COVID-19 Vaccine (#1) [facility] Test 00:00:00 [code = COVID-19 Vaccine (#1)] Future Scheduled 1979 COVID-19 Vaccine (#1) [facility] Test 00:00:00 [code = COVID-19 Vaccine (#1)] Future Scheduled 1979 COVID-19 Vaccine (#1) [facility] Test 00:00:00 [code = COVID-19 Vaccine (#1)] Future Scheduled 1979 COVID-19 Vaccine (#1) [facility] Test 00:00:00 [code = COVID-19 Vaccine (#1)] Goal Plan of Care Note [code = 77037-7] Goal Plan of Care Note [code = 54654-6] Goal Plan of Care Note [code = 12639-0] Goal Plan of Care Note [code = 67499-0] Goal Plan of Care Note [code = 92258-9] Goal Plan of Care Note [code = 52755-2] Goal Plan of Care Note [code = 03039-8] Goal Plan of Care Note [code = 54499-0] Goal Plan of Care Note [code = 49370-0] Goal Plan of Care Note [code = 66398-9] Goal Plan of Care Note [code = 75511-0] Goal Plan of Care Note [code = 23142-4] Goal Plan of Care Note [code = 68520-7] Goal Plan of Care Note [code = 87953-5] Goal Plan of Care Note [code = 79383-8] Goal Plan of Care Note [code = 22373-6] Goal Plan of Care Note [code = 00286-6] Goal Plan of Care Note [code = 57310-2] Goal Plan of Care Note [code = 48268-5] Goal Plan of Care Note [code = 51176-1] Goal Plan of Care Note [code = 46613-1] Goal Plan of Care Note [code = 75629-8] Goal Plan of Care Note [code = 02994-2] Goal Plan of Care Note [code = 14149-9] Goal Plan of Care Note [code = 18585-7] Goal Plan of Care Note [code = 42689-6] Goal Plan of Care Note [code = 13470-9] Goal Plan of Care Note [code = 41721-0] Goal Plan of Care Note [code = 27625-4] Goal Plan of Care Note [code = 54490-9] Goal Plan of Care Note [code = 60913-2] Goal Plan of Care Note [code = 17759-2] Goal Plan of Care Note [code = 68233-8] Goal Plan of Care Note [code = 21686-9] Goal Plan of Care Note [code = 40409-6] Goal Plan of Care Note [code = 71901-4] Goal Plan of Care Note [code = 69348-3] Goal Plan of Care Note [code = 70381-0] Goal Plan of Care Note [code = 59903-0] Goal Plan of Care Note [code = 99146-3] Goal Plan of Care Note [code = 88278-5] Goal Plan of Care Note [code = 00030-2] Goal Plan of Care Note [code = 31620-9] Goal Plan of Care Note [code = 00208-9] Goal Plan of Care Note [code = 29208-9] Goal Plan of Care Note [code = 86615-3] Goal Plan of Care Note [code = 12999-6] Goal Plan of Care Note [code = 42408-1] Goal Plan of Care Note [code = 39194-8] Goal Plan of Care Note [code = 73744-2] Goal Plan of Care Note [code = 77758-5] Goal Plan of Care Note [code = 48945-1] Goal Plan of Care Note [code = 61086-4] Goal Plan of Care Note [code = 78563-9] Goal Plan of Care Note [code = 09317-2] Goal Plan of Care Note [code = 47929-8] Goal Plan of Care Note [code = 69622-0] Goal Plan of Care Note [code = 42464-7] Goal Plan of Care Note [code = 11253-4] Goal Plan of Care Note [code = 25104-4] Goal Plan of Care Note [code = 40174-6] Goal Plan of Care Note [code = 99156-3] Goal Plan of Care Note [code = 00733-7] Goal Plan of Care Note [code = 50569-0] Goal Plan of Care Note [code = 94675-2] Goal Plan of Care Note [code = 46080-3] Goal Plan of Care Note [code = 77037-2] Goal Plan of Care Note [code = 06319-6] Goal Plan of Care Note [code = 85995-0] Goal Plan of Care Note [code = 35268-9] Goal Plan of Care Note [code = 24297-2] Goal Plan of Care Note [code = 92005-2] Goal Plan of Care Note [code = 78173-0] Goal Plan of Care Note [code = 74011-5] Goal Plan of Care Note [code = 51425-4] Encounters Start End Encounter Admission Attending Care Care Encounter Source Date/Time Date/Time Type Type Clinicians Facility Department ID 2022-11-07 2022-11-07 Emergency X DAVID [facility] ERT [id number] Univers 15:45:00 20:54:00 JAYDA itguzman of [facility] 2022-11-07 2022-11-07 Emergency David [facility] [id number] Univers 15:45:00 20:54:00 Jayda HEATON 350.1.13.10 i ty of [place] 4.2.7.2.686 [facility] [id number] [address] 2022-10-28 2022-10-28 Emergency [facility] [id number] Univers 14:07:00 17:10:00 JAKE quick [facility] 2022-10-28 2022-10-28 Emergency [facility] 1.2.196.321 [id number] Univers 14:07:00 17:10:00 Jake HEATON 350.1.13.10 i ty of [place] 4.2.7.2.686 [facility] [id number] [address] 2022-10-02 2022-10-17 Gelacio Palmer NEURO 1.2.840.[id number] [place] [address] 00:00:00 22:32:39 Vishnu PSYCH 350.1.13.43 alth [place] .2.7.2.6869 [id number] 9556-05-01 2022-09-23 Orders Doctor HELADIO 1.2.840.114 [id number] Univers 00:00:00 00:00:00 Only Unassigned, BONIFACIO 350.1.13.[address] [place] 4.2.7.2.686 [facility] [id number] [address] 2022-09-13 2022-09-13 Outpatient [facility] Ismael 08:44:31 08:44:31 [id number] F Sim 2022-08-09 2022-08-09 Outpatient [facility] Ismael 11:12:06 11:12:06 [id number] F [place] 2022-08-05 2022-08-05 Telemedici Palmer, NEURO 1.2.840.114 [id number] [place] 09:40:00 13:28:34 ne Vishnu PSYCH 350.1.13.43 [facility] .2.7.2.6869 [id number] 2024-03-02 2022-07-25 Outpatient [facility] Ismael 16:58:59 16:58:59 [id number] F [place] 2022-07-08 2022-07-08 Telemedici Palmer, NEURO 1.2.840.114 [id number] [place] 09:40:00 15:26:27 ne Vishnu PSYCH 350.1.13.43 [facility] .2.7.2.6869 [id number] 2041-01-27 2022-06-24 Emergency Juan Canelo ESPINOZAB 1.2.84 0.114 [id number] [place] 18:23:00 16:12:00 Leigh Eastman GENERAL 350.1.13.43 [facility] .2.7.2.6869 Jazzy Franco [id number] Sugey Morales 2022-06-21 2022-06-24 Emergency 1 Juan Canelo LARSON DONNA 1.2.84 0.114 [id number] [place] 18:23:00 16:12:00 Leigh Eastman GENERAL 350.1.13.43 [facility] .2.7.2.6869 Jazzy Franco [id number] Sugey Morales 2022-06-21 2022-06-21 Outpatient [facility] Ismael 14:08:27 14:08:27 [id number] F [place] 2022-06-17 2022-06-17 Outpatient [facility]el 09:35:27 09:35:27 [id number] F [place] 2022-06-17 2022-06-17 Telephone MASOUD Anna 1.2.840.114 [id number] [facility] 00:00:00 00:00:00 [facility] 350.1.13.10 i [facility] 4[place].2.[place] [id number] [facility] [address] 2022-06-10 2022-06-10 Outpatient [facility] Ismael 15:07:29 15:07:29 [id number] F Sim 2022-06-10 2022-06-10 Orders Doctor HELADIO 1.2.840.114 [id number] Univers 00:00:00 00:00:00 Only Unassigned, BONIFACIO 350.1.13.[address] [facility] 4.2.7.2.686 [place] as [id number] [facility] [address] 2022-06-10 2022-06-10 Outpatient [id number]- [id number] l49as5-j 00:00:00 00:00:00 Visit v52d-0wa4 06b-4fe2-b -e7l4-n3b 4h1-o2rssr jdx20to3a 62df9e 2022-05-31 2022-05-31 [facility] [id number] Univers 15:07:00 18:42:00 GENIA ity of [facility] 2022-05-31 2022-05-31 Emergency [facility] 1.2.840.114 [id number] [facility] 15:07:00 18:42:00 Genia Mathur HARTLY 350.1.13.10 ity of [place] [id number] [facility] [address] 2022-04-16 2022-04-16 Outpatient [facility]el 11:13:16 11:13:16 [id number] F Sim 2022-04-16 2022-04-16 Outpatient [id number]- [id number] g0t73q-1 00:00:00 00:00:00 Visit 3ws3-524v aa1-478a-b -e6n3-798 4d6-1601q9 0w9g482zd e604be 2022-04-09 2022-04-09 Outpatient [facility] Is[facility]el 11:38:52 11:38:52 [id number] F Sim 2022-04-09 2022-04-09 Outpatient 04qp3r3e- [id number] zj3o2d-4 00:00:00 00:00:00 Visit 482a-414e 82a-414e-9 -9408-24e 408-24e7e0 7o368853p 43213f 2022-04-03 2022-04-03 Outpatient [id number]- [id number] 7f 2356l2-8 00:00:00 00:00:00 Visit 0953-4c87 953-4c87-a -s1r0-1s7 9m1-3w3g89 x50h9ks0e f2fe2a 2022-03-22 2022-03-22 Outpatient 580pz802- [id number] 7ch770-x 00:00:00 00:00:00 Visit e1s2-077s 8g3-891c-5 -17h9-501 4m0-6426n7 0v90r163b 5s782v 2020-09-07 2020-09-07 Outpatient [facility]K HINDS [facility] 259 [id number] [place] 00:00:00 00:00:00 620 Method i 2020-09-07 2020-09-07 Outpatient DERECK HINDS [facility] 131 [id number] [place] 00:00:00 00:00:00 109 Method i 2020-09-07 2020-09-07 Outpatient DERECK HINDS [facility] 063 [id number] [place] 00:00:00 00:00:00 335 Method i 2020-09-07 2020-09-07 Outpatient DERECK HINDS [facility] [id number] [place] 00:00:00 00:00:[address] 2020-05-30 2020-05-30 Emergency [facility] 1.2.307.730 [id number] 16:01:00 23:26:00 Janene Heaton 350.1.13.10 [place] 4.2.7.2.686 [place] [id number] 084 2020-05-30 2020-05-30 Emergency [facility] 1.2.275.680 [id number] [facility] 16:01:00 23:26:00 Janene Heaton 350.1.13.10 i ty of [place] 4.2.7.2.686 [facility] [id number] [facility] [address] 2020-05-30 2020-05-30 Emergency X [facility] ERT [id number] Univers 16:01:00 23:26:00 ity [facility] Results Test Description Test Time Test Comments Results Result Comments Source COMP. METABOLIC PANEL (68962) 2022-11-07 22:06:17 Test Item Value Reference Range Interpretation Comme nts NA (test code = 0784027933) 139 mmol/L 135-145 K (test code = 3334562129) 3.8 mmol/L 3.5-5.0 CL (test code = 4306151717) 104 mmol/L 98-108 CO2 TOTAL (test code = 5356750804) 26 mmol/L 23-31 AGAP (test code = 6354829768) 9 2-16 BUN (test code = 0648011422) 5 mg/dL 7-23 L GLUCOSE (test code = 5739728223) 100 mg/dL 70-110 CREATININE (test code = 0.54 mg/dL 0.50-1.04 8244421551) TOTAL BILI (test code = 0.5 mg/dL 0.1-1.9 7411956296) CALCIUM (test code = 0230214477) 8.5 mg/dL 8.6-10.6 L T PROTEIN (test code = 6404675953) 6.6 g/dL 6.3-8.2 ALBUMIN (test code = 7379343984) 3.5 g/dL 3.5-5.0 ALK PHOS (test code = 5207422401) 77 U/L 34-122 ALTv (test code = 1742-6) 14 U/L 5-35 AST(SGOT) (test code = 3388433008) 15 U/L 13-40 eGFR (test code = 0279597001) 123.2 mL/min/1.73m2 JASMEET (test code = JASMEET) Association of Glomerular Filtration Rate (GFR) and Staging of Kidney Disease* + +-------- + ------+| GFR (mL/min/1.73 m2) ?| With Kidney Damage ?| ?Without Kidney Damage+ +-- + +| ?>90 ?| ?Stage one ?| ? Normal ?+ +------- + -------+| ?60-89 ?| ?Stage two ?| ? Decreased GFR ? + +-------- + ------+| ?30-59 ?| ?Stage three ?| ? Stage three ? + +-------- + ------+| ?15-29 ?| ?Stage four ? | ? Stage four ?+ +------- + -------+| ?<15 (or dialysis) ? ?| ?Stage five ? | ? Stage five ?+ +------- + -------+ *Each stage assumes the associated GFR [...] or abnormalities in imaging tests). Lab Interpretation (test code = Abnormal 18777-2) [facility] 22[facility]05:57 Test Item Value Reference Range Interpretation Comments LIPASE (test code = 3934997274) 21 U/L 0-220 Lab Interpretation (test code = Normal 35723-5) [facility] WITH [id number] 21:56:14 Test Item Value Reference Range Interpretation Comments WBC (test code = 8.45 See_Comment [Automated 6390-2) message] The sy stem which generated this result transmitted reference range : 4.30 - 11.10 10*3/?L. The reference range was not used to interpret this result as normal/abnormal . RBC (test code = 3.71 See_Comment L [Automated 322-8) message] The sy stem which generated this result transmitted reference range : 3.93 - 5.25 10*6/?L. The reference range was not used to interpret this result as normal/abnormal . HGB (test code = 11.4 g/dL 11.6-15.0 L 718-7) HCT (test code = 33.7 % 35.7-45.2 L 4544-3) MCV (test code = 90.8 fL 80.6-95.5 787-2) MCH (test code = 30.7 pg 25.9-32.8 785-6) MCHC (test code = 33.8 g/dL 31.6-35.1 786-4) RDW-SD (test code = 38.8 fL 39.0-49.9 L 99110-8) RDW-CV (test code = 11.7 % 12.0-15.5 L 788-0) PLT (test code = 176 See_Comment [Automated 777-3) message] The sy stem which generated this result transmitted reference range : 166 - 358 10*3/ ?L. The reference r fiona was not used to interpret this result as normal/abnormal . MPV (test code = 10.0 fL 9.5-12.9 07023-5) NRBC/100 WBC (test 0.0 See_Comment [Automat ed code = 7618798186) message] The system which generated this result transmitted reference range : 0.0 - 10.0 /100 WBCs. The refer ence range was not u sed to interpret th is result as normal/abnormal . NRBC x10^3 (test code See_Comment [Auto mated = 0920631328) message] The s ystem which generated this result transmitted reference range : 10*3/?L. The reference range was not used to interpret this result as normal/abnormal . GRAN MAT (NEUT) % 71.4 % (test code = 770-8) IMM GRAN % (test code 0.70 % = 5900802823) LYMPH % (test code = 22.8 % 736-9) MONO % (test code = 3.9 % 5905-5) EOS % (test code = 0.8 % 713-8) BASO % (test code = 0.4 % 706-2) GRAN MAT x10^3(ANC) 6.03 10*3/uL 1.88-7.09 (test code = 2610795962) IMM GRAN x10^3 (test 0.06 10*3/uL 0.00-0.06 code = 8717168436) LYMPH x10^3 (test code 1.93 10*3/uL 1.32-3.29 = 731-0) MONO x10^3 (test code 0.33 10*3/uL 0.33-0.92 = 742-7) EOS x10^3 (test code = 0.07 10*3/uL 0.03-0.39 711-2) BASO x10^3 (test code 0.03 10*3/uL 0.01-0.07 = 704-7) Lab Interpretation Abnormal (test code = 75647-4) [facility] [id number] 21:42:00 Test Item Value Reference Range Interpretation Comments POCT PREG (test code = 1605) Negative On board controls acceptable with Yes C Line (test code = 3574) POCT PREG LOT # (test code = 3575) [id number] POCT PREG TEST DATE (test 02/29/2024 code = 3576) Lab Interpretation (test code = Normal 35409-6) [facility]. METABOLIC PANEL (17783)2022-10-28 20:25:41 Test Item Value Reference Range Interpretation Comments NA (test code = 136 mmol/L 135-145 5916087340) K (test code = 3.9 mmol/L 3.5-5.0 6584955431) CL (test code = 101 mmol/L 98-108 0883124061) CO2 TOTAL (test code = 27 mmol/L 23-31 2687368658) AGAP (test code = 8 2-16 1151412059) BUN (test code = 5 mg/dL 7-23 L 3185647710) GLUCOSE (test code = 98 mg/dL 70-110 7124907359) CREATININE (test code = 0.65 mg/dL 0.50-1.04 7950280149) TOTAL BILI (test code = 0.5 mg/dL 0.1-1.5 9146129611) CALCIUM (test code = 8.9 mg/dL 8.6-10.6 8520698490) T PROTEIN (test code = 7.2 g/dL 6.3-8.2 7768174635) ALBUMIN (test code = 3.9 g/dL 3.5-5.0 1895101076) ALK PHOS (test code = 81 U/L 34-122 1462205129) ALTv (test code = 14 U/L 5-35 1742-6) AST(SGOT) (test code = 28 U/L 13-40 3842192525) eGFR (test code = 99.5 mL/min/1.73m2 6018385492) JASMEET (test code = JASMEET) Association of [...] tests). Lab Interpretation Abnormal (test code = 02371-5) [facility] 20:14:18 Test Item Value Reference Range Interpretation Comments LIPASE (test code = 8935673371) 28 U/L 0-220 Lab Interpretation (test code = Normal 44362-0) [facility] Station[facility] WITH [id number] 19:54:37 Test Item Value Reference Range Interpretation Comments WBC (test code = 10.97 See_Comment [Automated 3390-2) message] The sy stem which generated this result transmitted reference range : 4.30 - 11.10 10*3/?L. The reference range was not used to interpret this result as normal/abnormal . RBC (test code = 4.09 See_Comment [Automated 789-8) message] The sy stem which generated this result transmitted reference range : 3.93 - 5.25 10*6/?L. The reference range was not used to interpret this result as normal/abnormal . HGB (test code = 12.9 g/dL 11.6-15.0 718-7) HCT (test code = 37.5 % 35.7-45.2 4544-3) MCV (test code = 91.7 fL 80.6-95.5 787-2) MCH (test code = 31.5 pg 25.9-32.8 785-6) MCHC (test code = 34.4 g/dL 31.6-35.1 786-4) RDW-SD (test code = 40.3 fL 39.0-49.9 16303-6) RDW-CV (test code = 12.0 % 12.0-15.5 788-0) PLT (test code = 188 See_Comment [Automated 777-3) message] The sy stem which generated this result transmitted reference range : 166 - 358 10*3/ ?L. The reference r fiona was not used to interpret this result as normal/abnormal . MPV (test code = 10.1 fL 9.5-12.9 45258-7) NRBC/100 WBC (test 0.0 See_Comment [Automat ed code = 1582849244) message] The system which generated this result transmitted reference range : 0.0 - 10.0 /100 WBCs. The refer ence range was not u sed to interpret th is result as normal/abnormal . NRBC x10^3 (test code See_Comment [Auto mated = 2815747514) message] The s ystem which generated this result transmitted reference range : 10*3/?L. The reference range was not used to interpret this result as normal/abnormal . GRAN MAT (NEUT) % 73.4 % (test code = 770-8) IMM GRAN % (test code 0.50 % = 2796596616) LYMPH % (test code = 20.9 % 736-9) MONO % (test code = 4.3 % 5905-5) EOS % (test code = 0.5 % 713-8) BASO % (test code = 0.4 % 706-2) GRAN MAT x10^3(ANC) 8.06 10*3/uL 1.88-7.09 H (test code = 9839685672) IMM GRAN x10^3 (test 0.05 10*3/uL 0.00-0.06 code = 5464424894) LYMPH x10^3 (test code 2.29 10*3/uL 1.32-3.29 = 731-0) MONO x10^3 (test code 0.47 10*3/uL 0.33-0.92 = 742-7) EOS x10^3 (test code = 0.06 10*3/uL 0.03-0.39 711-2) BASO x10^3 (test code 0.04 10*3/uL 0.01-0.07 = 704-7) Lab Interpretation Abnormal (test code = 59483-2) [facility] StationLactic Acid Whole [id number] 19:45:31 Test Item Value Reference Range Interpretation Comments LACTIC ACID (test code = 0.85 mmol/L 0.50-2.20 5102938029) Lab Interpretation (test code = Normal 47482-8) [facility], THIRD [id number] 08:59:32 Test Item Value Reference Range Interpretation Comments TSH, THIRD 51.900 UIU/ML 0.400-4.100 [facility] has GENERATION (test important p athology code = 2821) staff changes effective 07/24. New patholo gy staff will prov norman uninterrupted, excellent patie nt care and clinic al consultation. S ee URL: [email or web address]. UNLE SS OTHERWISE INDIC ATED, ALL TESTING PER FORMED AT [facility], [place]. [address] [place] [address] LABOR ATORY DIRECTOR: Almas FERRARI LILIANE NUMBER [id number] CAP ACCREDITATION N O. [id number] LIPID [id number] 08:36:54 Test Item Value Reference Range Interpretation Comments CHOLESTEROL (test 90 MG/DL <200 code = 2210) TRIGLYCERIDES (test 66 MG/DL <150 code = 2232) HDL CHOLESTEROL (test 39 MG/DL >39 L code = 2220) CALC LDL CHOL (test 36 MG/DL <100 NOTE: C ALCULATED LDL code = 2237) IS BASED ON FREDERICK-PACE METHOD WHICHINCLUDES ADJUSTABLE TRIGLYCERIDE:VL DL CHOLESTEROL RAT IO.THIS FACTOR VARIES B Y MEASURED TRIGLY CERIDE AND NON-HDLCHOL ESTEROL CONCENTRATIONS WITH INCREASED CALCU LATED LDL SEENIN HIGH ER TRIGLYCERIDE OR LOWER NON-HDL SPECIME NS. FOR MOREINFORMATION , SEE CLIENT ANNOUNCE MENT AT [email or web address] [email or web address] RATIO LDL/HDL 0.92 RATIO <3.22 (test code = 2238) COMPREHENSIVE METABOLIC [id number] 08:36:54 Test Item Value Reference Range Interpretation Comments GLUCOSE (test code = 82 MG/DL 70-99 2216) BUN (test code = 10 MG/DL 6-20 2207) CREATININE (test 0.98 MG/DL 0.60-1.30 code = 2214) eGFR (2020 CKD-EPI) 73 ML/MIN/1.73 >60 (test code = 87188) CALC BUN/CREAT (test 10 RATIO 6-28 code = 2235) SODIUM (test code = 139 MEQ/L 421-323 0016) POTASSIUM (test code 4.0 MEQ/L 3.5-5.4 = 2227) CHLORIDE (test code 102 MEQ/L 95-107 = 2215) CARBON DIOXIDE (test 27 MEQ/L 19-31 code = 2206) CALCIUM (test code = 8.6 MG/DL 8.5-10.5 2208) PROTEIN, TOTAL (test 6.6 G/DL 6.1-8.3 code = 2229) ALBUMIN (test code = 3.6 G/DL 3.5-5.2 2200) CALC GLOBULIN (test 3.0 G/DL 1.9-3.7 code = 2240) CALC A/G RATIO (test 1.2 RATIO 1.0-2.6 code = 2234) BILIRUBIN, TOTAL <0.2 MG/DL See_Comment [Automated message] (test code = 2207) The syste m which generated this result transmit justino reference range : <=1.2. The refe rence range was not u sed to interpret th is result as normal/abnormal . ALKALINE PHOSPHATASE 66 U/L 40-113 (test code = 2204) AST (test code = 13 U/L 9-40 2217) ALT (test code = 12 U/L 5-40 2218) HEMOGLOBIN [id number] 06:06:42 Test Item Value Reference Range Interpretation Comments HEMOGLOBIN A1c (test code = 81914) 5.3 % 4.2-5.6 CBC W/AUTO DIFF WITH [id number] 04:19:18 Test Item Value Reference Range Interpretation Comments WBC (test code = 7.2 K/UL 3.5-11.0 1001) RBC (test code = 3.65 M/UL 3.80-5.40 L 1002) HEMOGLOBIN (test code 11.3 G/DL 11.5-15.5 L = 1003) HEMATOCRIT (test code 33.9 % 34.0-45.0 L = 1004) MCV (test code = 92.9 fL 80.0-99.0 1005) MCH (test code = 31.0 PG 25.0-33.0 1006) MCHC (test code = 33.3 G/DL 31.0-36.0 1007) RDW (test code = 15.0 % 11.5-15.0 1038) NEUTROPHILS (test 57.9 % code = 1008) LYMPHOCYTES (test 36.3 % code = 1010) MONOCYTES (test code 4.2 % = 1011) EOSINOPHILS (test 0.4 % code = 1012) BASOPHILS (test code 0.8 % = 1013) IMMATURE GRANULOCYTES 0.4 % (test code = 1036) NUCLEATED RBCS (test 0.0 /100 WBC'S See_Comment [Aut omated code = 1065) message] The sy stem which generated this result transmitted reference range : 0.0. The refere nce range was not u sed to interpret th is result as normal/abnormal . PLATELET COUNT (test 194 K/UL 130-400 code = 1015) ABSOLUTE NEUTROPHILS 4.15 K/UL 1.50-7.50 (test code = 1066) ABSOLUTE LYMPHOCYTES 2.60 K/UL 1.00-4.00 (test code = 1067) ABSOLUTE MONOCYTES 0.30 K/UL 0.20-1.00 (test code = 1068) ABSOLUTE EOSINOPHILS 0.03 K/UL 0.00-0.50 (test code = 1040) ABSOLUTE BASOPHILS 0.06 K/UL 0.00-0.20 (test code = 1069) ABS IMMATURE 0.03 K/UL 0.00-0.10 GRANULOCYTES (test code = 1020) ABS NUCLEATED RBCS 0.00 K/UL 0.00-0.11 (test code = 85950) 12 Lead [id number] 06:51:5812 LEAD EKG FOR [facility] Test Date: 2022-65-54Lcl Name: DESTINEE NOLAN Department: 5520Patient ID: [id number] Room: Gender: F Quality Systems Engineer: [id number]: 1980 Requested By: SUGEY MORALES Order Number: [id number] Reading MD: Ladonna Forman MeasurementsIntervals [place] Rate: 58 P: 53PR: 138 QRS: 63QRSD: 89 T: 22QT: 431 QTc: 429 Interpretive StatementsSINUS BRADYCARDIANONSPECIFIC T-WAVE ABNORMALITYElectronically Signed On 06-22-2022 12:16:46 MODELING AND SIMULATION ANALYST by LadonnaBuffalo General Medical CenterSumavisos Wodtrq82 Lead EKG 2022-06-22 06:51:5812 LEAD EKG FOR [facility] Test Date: 6291-04-99Liy Name: DESTINEE NOLAN Department: 5520Patient ID: [id number] Room: Gender: F Quality Systems Engineer: [id number]: 1980 Requested By: SUGEY MORALES Order Number: [id number] Reading MD: Ladonna Forman MeasurementsIntervals Capitan Rate: 58 P: 53PR: 138 QRS: 63QRSD: 89 T: 22QT: 431 QTc: 429 Interpretive StatementsSINUS BRADYCARDIANONSPECIFIC T-WAVE ABNORMALITYElectronically Signed On 06-22-2022 12:16:46 MODELING AND SIMULATION ANALYST by Ladonna [facility]tonBer[facility] Metropolitan OfficeSaint Joseph BereaSumavisos Idwodm16 Lead EKG 2022-06-22 06:51:5812 LEAD EKG FOR [facility] Test Date: 7947-25-26Jky Name: DESTINEE NOLAN Department: 5520Patient ID: [id number] Room: Gender: F Quality Systems Engineer: [id number]: 1980 Requested By: SUGEY MORALES Order Number: [id number] Reading MD: Ladonna Forman MeasurementsIntervals Capitan Rate: 58 P: 53PR: 138 QRS: 63QRSD: 89 T: 22QT: 431 QTc: 429 Interpretive StatementsSINUS BRADYCARDIANONSPECIFIC T-WAVE ABNORMALITYElectronically Signed On 06-22-2022 12:16:46 MODELING AND SIMULATION ANALYST by Ladonna MedranoSMSHarris Sxjrno36 Lead EKG 2022-06-22 06:51:5812 LEAD EKG FOR [facility] Test Date: 7908-29-44Jhv Name: DESTINEE NOLAN Department: 5520Patient ID: [id number] Room: Gender: F Quality Systems Engineer: [id number]: 1980 Requested By: SUGEY MORALES Order Number: [id number] Reading MD: Ladonna Forman MeasurementsIntervals Capitan Rate: 58 P: 53PR: 138 QRS: 63QRSD: 89 T: 22QT: 431 QTc: 429 Interpretive StatementsSINUS BRADYCARDIANONSPECIFIC T-WAVE ABNORMALITYElectronically Signed On 06-22-2022 12:16:46 MODELING AND SIMULATION ANALYST by Ladonna MedranoSMSHarris Lffhdp18 Lead EKG 2022-06-22 06:51:5812 LEAD EKG FOR [facility] Test Date: 3403-19-85Knt Name: DESTINEE NOLAN Department: 5520Patient ID: [id number] Room: Gender: F Quality Systems Engineer: [id number]: 1980 Requested By: SUGEY MORALES Order Number: [id number] Reading MD: Ladonna Forman MeasurementsIntervals Capitan Rate: 58 P: 53PR: 138 QRS: 63QRSD: 89 T: 22QT: 431 QTc: 429 Interpretive StatementsSINUS BRADYCARDIANONSPECIFIC T-WAVE ABNORMALITYElectronically Signed On 06-22-2022 12:16:46 MODELING AND SIMULATION ANALYST by Ladonna MedranoSMSHarris Esgaav54 Lead EKG 2022-06-22 06:51:5812 LEAD EKG FOR [facility] Test Date: 7623-44-87Bvx Name: DESTINEE NOLAN Department: 5520Patient ID: [id number] Room: Gender: F Quality Systems Engineer: [id number]: 1980 Requested By: SUGEY MORALES Order Number: [id number] Reading MD: Ladonna Forman MeasurementsIntervals Capitan Rate: 58 P: 53PR: 138 QRS: 63QRSD: 89 T: 22QT: 431 QTc: 429 Interpretive StatementsSINUS BRADYCARDIANONSPECIFIC T-WAVE ABNORMALITYElectronically Signed On 06-22-2022 12:16:46 MODELING AND SIMULATION ANALYST by Ladonna MedranoSMSHarris Zbrrwu55 Lead EKG 2022-06-22 06:51:5812 LEAD EKG FOR [facility] Test Date: 6707-37-48Ogn Name: DESTINEE NOLAN Department: 5520Patient ID: [id number] Room: Gender: F Quality Systems Engineer: [id number]: 1980 Requested By: SUGEY MORALES Order Number: [id number] Reading MD: Ladonna Forman MeasurementsIntervals Capitan Rate: 58 P: 53PR: 138 QRS: 63QRSD: 89 T: 22QT: 431 QTc: 429 Interpretive StatementsSINUS BRADYCARDIANONSPECIFIC T-WAVE ABNORMALITYElectronically Signed On 06-22-2022 12:16:46 MODELING AND SIMULATION ANALYST by Ladonna MedranoSMSHarris Veholv78 Lead EKG 2022-06-22 06:51:5812 LEAD EKG FOR [facility] Test Date: 5354-63-06Wlg Name: DESTINEE NOLAN Department: 5520Patient ID: [id number] Room: Gender: F Quality Systems Engineer: [id number]: 1980 Requested By: SUEGY MORALES Order Number: [id number] Reading MD: Ladonna Forman MeasurementsIntervals Capitan Rate: 58 P: 53PR: 138 QRS: 63QRSD: 89 T: 22QT: 431 QTc: 429 Interpretive StatementsSINUS BRADYCARDIANONSPECIFIC T-WAVE ABNORMALITYElectronically Signed On 06-22-2022 12:16:46 MODELING AND SIMULATION ANALYST by Ladonna MedranoSMSHarris Ntxome01 Lead EKG 2022-06-22 06:51:5812 LEAD EKG FOR [facility] Test Date: 0088-12-02Gdu Name: DESTINEE NOLAN Department: 5520Patient ID: [id number] Room: Gender: F Quality Systems Engineer: [id number]: 1980 Requested By: PRIETO Order Number: [id number] Reading MD: Ladonna Forman MeasurementsIntervals Capitan Rate: 58 P: 53PR: 138 QRS: 63QRSD: 89 T: 22QT: 431 QTc: 429 Interpretive StatementsSINUS BRADYCARDIANONSPECIFIC T-WAVE ABNORMALITYElectronically Signed On 06-22-2022 12:16:46 MODELING AND SIMULATION ANALYST by Ladonna MedranoSMSHarris Otktps23 Lead EKG 2022-06-22 06:51:5812 LEAD EKG FOR [facility] Test Date: 2821-98-69Vqe Name: DESTINEE NOLAN Department: 5520Patient ID: [id number] Room: Gender: F Quality Systems Engineer: [id number]: 1980 Requested By: PRIETO Order Number: [id number] Reading MD: Ladonna Forman MeasurementsIntervals Capitan Rate: 58 P: 53PR: 138 QRS: 63QRSD: 89 T: 22QT: 431 QTc: 429 Interpretive StatementsSINUS BRADYCARDIANONSPECIFIC T-WAVE ABNORMALITYElectronically Signed On 06-22-2022 12:16:46 MODELING AND SIMULATION ANALYST by Ladonna MedranoSMSHarris Nuqamp78 Lead EKG 2022-06-22 06:51:5812 LEAD EKG FOR [facility] Test Date: 5773-45-57Auq Name: DESTINEE NOLAN Department: 5520Patient ID: [id number] Room: Gender: F Quality Systems Engineer: [id number]: 1980 Requested By: SUGEY MORALES Order Number: [id number] Reading MD: Ladonna Forman MeasurementsIntervals Capitan Rate: 58 P: 53PR: 138 QRS: 63QRSD: 89 T: 22QT: 431 QTc: 429 Interpretive StatementsSINUS BRADYCARDIANONSPECIFIC T-WAVE ABNORMALITYElectronically Signed On 06-22-2022 12:16:46 MODELING AND SIMULATION ANALYST by Ladonna MedranoSMSHarris Qadwjw90 Lead EKG 2022-06-22 06:51:5812 LEAD EKG FOR [facility] Test Date: 0830-72-16Atm Name: DESTINEE NOLAN Department: 5520Patient ID: [id number] Room: Gender: F Quality Systems Engineer: [id number]: 1980 Requested By: SUGEY MORALES Order Number: [id number] Reading MD: Ladonna Forman MeasurementsIntervals Capitan Rate: 58 P: 53PR: 138 QRS: 63QRSD: 89 T: 22QT: 431 QTc: 429 Interpretive StatementsSINUS BRADYCARDIANONSPECIFIC T-WAVE ABNORMALITYElectronically Signed On 06-22-2022 12:16:46 MODELING AND SIMULATION ANALYST by Ladonna MedranoSMSHarris Zavene85 Lead EKG 2022-06-22 06:51:5812 LEAD EKG FOR [facility] Test Date: 3866-45-39Lcm Name: DESTINEE NOLAN Department: 5520Patient ID: [id number] Room: Gender: F Quality Systems Engineer: [id number]: 1980 Requested By: SUGEY MORALES Order Number: [id number] Reading MD: Ladonna Forman MeasurementsIntervals Capitan Rate: 58 P: 53PR: 138 QRS: 63QRSD: 89 T: 22QT: 431 QTc: 429 Interpretive StatementsSINUS BRADYCARDIANONSPECIFIC T-WAVE ABNORMALITYElectronically Signed On 06-22-2022 12:16:46 MODELING AND SIMULATION ANALYST by Ladonna MedranoSMSHarris Nkepic45 Lead EKG 2022-06-22 06:51:5812 LEAD EKG FOR [facility] Test Date: 0998-27-99Szv Name: DESTINEE NOLAN Department: 5520Patient ID: [id number] Room: Gender: F Quality Systems Engineer: [id number]: 1980 Requested By: SUGEY MORALES Order Number: [id number] Reading MD: Ladonna Forman MeasurementsIntervals Capitan Rate: 58 P: 53PR: 138 QRS: 63QRSD: 89 T: 22QT: 431 QTc: 429 Interpretive StatementsSINUS BRADYCARDIANONSPECIFIC T-WAVE ABNORMALITYElectronically Signed On 06-22-2022 12:16:46 MODELING AND SIMULATION ANALYST by Ladonna MedranoSMSHarris Xkoclq09 Lead EKG 2022-06-22 06:51:5812 LEAD EKG FOR [facility] Test Date: 3856-35-56Yhn Name: DESTINEE NOLAN Department: 5520Patient ID: [id number] Room: Gender: F Quality Systems Engineer: [id number]: 1980 Requested By: SUGEY MORALES Order Number: [id number] Reading MD: Ladonna Forman MeasurementsIntervals Capitan Rate: 58 P: 53PR: 138 QRS: 63QRSD: 89 T: 22QT: 431 QTc: 429 Interpretive StatementsSINUS BRADYCARDIANONSPECIFIC T-WAVE ABNORMALITYElectronically Signed On 06-22-2022 12:16:46 MODELING AND SIMULATION ANALYST by Ladonna [facility] OfficeSaint Joseph BereaSumavisos Isigtq02 Lead EKG 2022-06-22 06:51:5812 LEAD EKG FOR [facility] Test Date: 4570-58-41Afg Name: DESTINEE NOLAN Department: 5520Patient ID: [id number] Room: Gender: F Quality Systems Engineer: [id number]: 1980 Requested By: SUGEY MORALES Order Number: [id number] Reading MD: Ladonna Forman MeasurementsIntervals Capitan Rate: 58 P: 53PR: 138 QRS: 63QRSD: 89 T: 22QT: 431 QTc: 429 Interpretive StatementsSINUS BRADYCARDIANONSPECIFIC T-WAVE ABNORMALITYElectronically Signed On 06-22-2022 12:16:46 MODELING AND SIMULATION ANALYST by Ladonna [facility] OfficeSaint [facility] BereaSumavisos Dkaujo90 Lead EKG 2022-06-22 06:51:5812 LEAD EKG FOR [facility] Test Date: 7198-00-16Iml Name: DESTINEE NOLAN Department: 5520Patient ID: [id number] Room: Gender: F Quality Systems Engineer: [id number]: 1980 Requested By: SUGEY MORALES Order Number: [id number] Reading MD: Ladonna Forman MeasurementsIntervals Capitan Rate: 58 P: 53PR: 138 QRS: 63QRSD: 89 T: 22QT: 431 QTc: 429 Interpretive StatementsSINUS BRADYCARDIANONSPECIFIC T-WAVE ABNORMALITYElectronically Signed On 06-22-2022 12:16:46 MODELING AND SIMULATION ANALYST by Ladonna [facility]xNov[facility] Pender Medical CenterCoronavirus, CoVID- 19, [id number] 05:23:56 Test Item Value Reference Interpretation Comments Range COVID-19 Not Detected Not Detected INTERPRETATION: (SARS-COV-2) (test No detect able code = 60684-4) levels of SARS-CoV-2 Coronavirus (COVID-19) were present in this patient's sampl e by this test. A not detected result does not exclude the possibility of active infectio n with this virus due to other factors that ma y affect the results such as a poorly collected sample, viral titers below th e limit of detection of th e assay, and the infrequent possibility of inhibitors in the sample. Thi s result should b e interpreted in conjunction wit h clinical, radiographic, and other laboratory findings and should not be used as the gene e indicator of active infectio n with SARS-CoV-2 Coronavirus (COVID-19). JASMEET (test code = COMMENT: This JASMEET) CepInspro Xpert Xpress SARS-CoV-2 real-time PCR test was developed, and its performance characteristics determined by the [facility] molecular diagnostic Laboratory and is acceptable for patient testing. It has been approved for patient testing by the FDA under the Emergency Use Authorization pathway. This laboratory is certified under federal CLIA regulations to perform this type of high complexity testing. Lab Interpretation Normal (test code = 61642-3) [facility], [id number] 05:23:56 Test Item Value Reference Interpretation Comments Range COVID-19 Not Detected Not Detected INTERPRETATION: (SARS-COV-2) (test No detect able code = 24969-8) levels of SARS-CoV-2 Coronavirus (COVID-19) were present in this patient's sampl e by this test. A not detected result does not exclude the possibility of active infectio n with this virus due to other factors that ma y affect the results such as a poorly collected sample, viral titers below th e limit of detection of th e assay, and the infrequent possibility of inhibitors in the sample. Thi s result should b e interpreted in conjunction wit h clinical, radiographic, and other laboratory findings and should not be used as the gene e indicator of active infectio n with SARS-CoV-2 Coronavirus (COVID-19). JASMEET (test code = COMMENT: This JASMEET) CepInspro Xpert Xpress SARS-CoV-2 real-time PCR test was developed, and its performance characteristics determined by the [facility] molecular diagnostic Laboratory and is acceptable for patient testing. It has been approved for patient testing by the FDA under the Emergency Use Authorization pathway. This laboratory is certified under federal CLIA regulations to perform this type of high complexity testing. Lab Interpretation Normal (test code = 24067-7) Kerwin Diaavirus, CoVID-19, [id number] 05:23:56 Test Item Value Reference Interpretation Comments Range COVID-19 Not Detected Not Detected INTERPRETATION: (SARS-COV-2) (test No detect able code = 62950-0) levels of SARS-CoV-2 Coronavirus (COVID-19) were present in this patient's sampl e by this test. A not detected result does not exclude the possibility of active infectio n with this virus due to other factors that ma y affect the results such as a poorly collected sample, viral titers below th e limit of detection of th e assay, and the infrequent possibility of inhibitors in the sample. Thi s result should b e interpreted in conjunction wit h clinical, radiographic, and other laboratory findings and should not be used as the gene e indicator of active infectio n with SARS-CoV-2 Coronavirus (COVID-19). JASMEET (test code = COMMENT: This JASMEET) GeoGRAFI Xpert Xpress SARS-CoV-2 real-time PCR test was developed, and its performance characteristics determined by the [facility] molecular diagnostic Laboratory and is acceptable for patient testing. It has been approved for patient testing by the FDA under the Emergency Use Authorization pathway. This laboratory is certified under federal CLIA regulations to perform this type of high complexity testing. Lab Interpretation Normal (test code = 99589-3) [facility] Pierceronavirus, CoVID-19, [id number] 05:23:56 Test Item Value Reference Interpretation Comments Range COVID-19 Not Detected Not Detected INTERPRETATION: (SARS-COV-2) (test No detect able code = 96859-3) levels of SARS-CoV-2 Coronavirus (COVID-19) were present in this patient's sampl e by this test. A not detected result does not exclude the possibility of active infectio n with this virus due to other factors that ma y affect the results such as a poorly collected sample, viral titers below th e limit of detection of th e assay, and the infrequent possibility of inhibitors in the sample. Thi s result should b e interpreted in conjunction wit h clinical, radiographic, and other laboratory findings and should not be used as the gene e indicator of active infectio n with SARS-CoV-2 Coronavirus (COVID-19). JASMEET (test code = COMMENT: This JASMEET) Cepheid Xpert Xpress SARS-CoV-2 real-time PCR test was developed, and its performance characteristics determined by the [facility] molecular diagnostic [facility] and is acceptable for patient testing. It has been approved for patient testing by the FDA under the Emergency Use Authorization pathway. This laboratory is certified under federal CLIA regulations to perform this type of high complexity testing. Lab Interpretation Normal (test code = 03559-5) [facility], CoVID-19, [id number] 05:23:56 Test Item Value Reference Interpretation Comments Range COVID-19 Not Detected Not Detected INTERPRETATION: (SARS-COV-2) (test No detect able code = 85350-7) levels of SARS-CoV-2 Coronavirus (COVID-19) were present in this patient's sampl e by this test. A not detected result does not exclude the possibility of active infectio n with this virus due to other factors that ma y affect the results such as a poorly collected sample, viral titers below th e limit of detection of th e assay, and the infrequent possibility of inhibitors in the sample. Thi s result should b e interpreted in conjunction wit h clinical, radiographic, and other laboratory findings and should not be used as the gene e indicator of active infectio n with SARS-CoV-2 Coronavirus (COVID-19). JASMEET (test code = COMMENT: This JASMEET) Cepheid Xpert Xpress SARS-CoV-2 real-time PCR test was developed, and its performance characteristics determined by the [facility] diagnostic [facility] and is acceptable for patient testing. It has been approved for patient testing by the FDA under the Emergency Use Authorization pathway. This laboratory is certified under federal CLIA regulations to perform this type of high complexity testing. Lab Interpretation Normal (test code = 24420-2) [facility], CoVID-19, [id number] 05:23:56 Test Item Value Reference Interpretation Comments Range COVID-19 Not Detected Not Detected INTERPRETATION: (SARS-COV-2) (test No detect able code = 29651-8) levels of SARS-CoV-2 Coronavirus (COVID-19) were present in this patient's sampl e by this test. A not detected result does not exclude the possibility of active infectio n with this virus due to other factors that ma y affect the results such as a poorly collected sample, viral titers below th e limit of detection of th e assay, and the infrequent possibility of inhibitors in the sample. Thi s result should b e interpreted in conjunction wit h clinical, radiographic, and other laboratory findings and should not be used as the gene e indicator of active infectio n with SARS-CoV-2 Coronavirus (COVID-19). JASMEET (test code = COMMENT: This JASMEET) CepInspro Xpert Xpress SARS-CoV-2 real-time PCR test was developed, and its performance characteristics determined by the [facility] diagnostic [facility] and is acceptable for patient testing. It has been approved for patient testing by the FDA under the Emergency Use Authorization pathway. This laboratory is certified under federal CLIA regulations to perform this type of high complexity testing. Lab Interpretation Normal (test code = 03157-5) [facility] [id number] 05:23:56 Test Item Value Reference Interpretation Comments Range COVID-19 Not Detected Not Detected INTERPRETATION: (SARS-COV-2) (test No detect able code = 39176-5) levels of SARS-CoV-2 Coronavirus (COVID-19) were present in this patient's sampl e by this test. A not detected result does not exclude the possibility of active infectio n with this virus due to other factors that ma y affect the results such as a poorly collected sample, viral titers below th e limit of detection of th e assay, and the infrequent possibility of inhibitors in the sample. Thi s result should b e interpreted in conjunction wit h clinical, radiographic, and other laboratory findings and should not be used as the gene e indicator of active infectio n with SARS-CoV-2 Coronavirus (COVID-19). JASMEET (test code = COMMENT: This JASMEET) CepInspro Xpert Xpress SARS-CoV-2 real-time PCR test was developed, and its performance characteristics determined by the [facility] diagnostic [facility] and is acceptable for patient testing. It has been approved for patient testing by the FDA under the Emergency Use Authorization pathway. This laboratory is certified under federal CLIA regulations to perform this type of high complexity testing. Lab Interpretation Normal (test code = 65263-6) [facility] Pierceronavirus, CoVID-19, [id number] 05:23:56 Test Item Value Reference Interpretation Comments Range COVID-19 Not Detected Not Detected INTERPRETATION: (SARS-COV-2) (test No detect able code = 23104-8) levels of SARS-CoV-2 Coronavirus (COVID-19) were present in this patient's sampl e by this test. A not detected result does not exclude the possibility of active infectio n with this virus due to other factors that ma y affect the results such as a poorly collected sample, viral titers below th e limit of detection of th e assay, and the infrequent possibility of inhibitors in the sample. Thi s result should b e interpreted in conjunction wit h clinical, radiographic, and other laboratory findings and should not be used as the gene e indicator of active infectio n with SARS-CoV-2 Coronavirus (COVID-19). JASMEET (test code = COMMENT: This JASMEET) CepInspro Xpert Xpress SARS-CoV-2 real-time PCR test was developed, and its performance characteristics determined by the [facility] diagnostic [facility] and is acceptable for patient testing. It has been approved for patient testing by the FDA under the Emergency Use Authorization pathway. This laboratory is certified under federal CLIA regulations to perform this type of high complexity testing. Lab Interpretation Normal (test code = 40451-9) [facility] Pierceronavirus, CoVID-19, [id number] 05:23:56 Test Item Value Reference Interpretation Comments Range COVID-19 Not Detected Not Detected INTERPRETATION: (SARS-COV-2) (test No detect able code = 31680-3) levels of SARS-CoV-2 Coronavirus (COVID-19) were present in this patient's sampl e by this test. A not detected result does not exclude the possibility of active infectio n with this virus due to other factors that ma y affect the results such as a poorly collected sample, viral titers below th e limit of detection of th e assay, and the infrequent possibility of inhibitors in the sample. Thi s result should b e interpreted in conjunction wit h clinical, radiographic, and other laboratory findings and should not be used as the gene e indicator of active infectio n with SARS-CoV-2 Coronavirus (COVID-19). JASMEET (test code = COMMENT: This JASMEET) Cepheid Xpert Xpress SARS-CoV-2 real-time PCR test was developed, and its performance characteristics determined by the [facility] diagnostic [facility] and is acceptable for patient testing. It has been approved for patient testing by the FDA under the Emergency Use Authorization pathway. This laboratory is certified under federal CLIA regulations to perform this type of high complexity testing. Lab Interpretation Normal (test code = 71200-7) [facility], CoVID-19, [id number] 05:23:56 Test Item Value Reference Interpretation Comments Range COVID-19 Not Detected Not Detected INTERPRETATION: (SARS-COV-2) (test No detect able code = 03924-3) levels of SARS-CoV-2 Coronavirus (COVID-19) were present in this patient's sampl e by this test. A not detected result does not exclude the possibility of active infectio n with this virus due to other factors that ma y affect the results such as a poorly collected sample, viral titers below th e limit of detection of th e assay, and the infrequent possibility of inhibitors in the sample. Thi s result should b e interpreted in conjunction wit h clinical, radiographic, and other laboratory findings and should not be used as the gene e indicator of active infectio n with SARS-CoV-2 Coronavirus (COVID-19). JASMEET (test code = COMMENT: This JASMEET) CepNymirumid Xpert Xpress SARS-CoV-2 real-time PCR test was developed, and its performance characteristics determined by the [facility] diagnostic [facility] and is acceptable for patient testing. It has been approved for patient testing by the FDA under the Emergency Use Authorization pathway. This laboratory is certified under federal CLIA regulations to perform this type of high complexity testing. Lab Interpretation Normal (test code = 23443-7) [facility], CoVID-19, [id number] 05:23:56 Test Item Value Reference Interpretation Comments Range COVID-19 Not Detected Not Detected INTERPRETATION: (SARS-COV-2) (test No detect able code = 26221-5) levels of SARS-CoV-2 Coronavirus (COVID-19) were present in this patient's sampl e by this test. A not detected result does not exclude the possibility of active infectio n with this virus due to other factors that ma y affect the results such as a poorly collected sample, viral titers below th e limit of detection of th e assay, and the infrequent possibility of inhibitors in the sample. Thi s result should b e interpreted in conjunction wit h clinical, radiographic, and other laboratory findings and should not be used as the gene e indicator of active infectio n with SARS-CoV-2 Coronavirus (COVID-19). JASMEET (test code = COMMENT: This JASMEET) Cepheid Xpert Xpress SARS-CoV-2 real-time PCR test was developed, and its performance characteristics determined by the [facility] diagnostic [facility] and is acceptable for patient testing. It has been approved for patient testing by the FDA under the Emergency Use Authorization pathway. This laboratory is certified under federal CLIA regulations to perform this type of high complexity testing. Lab Interpretation Normal (test code = 55291-5) [facility], CoVID-19, [id number] 05:23:56 Test Item Value Reference Interpretation Comments Range COVID-19 Not Detected Not Detected INTERPRETATION: (SARS-COV-2) (test No detect able code = 02076-1) levels of SARS-CoV-2 Coronavirus (COVID-19) were present in this patient's sampl e by this test. A not detected result does not exclude the possibility of active infectio n with this virus due to other factors that ma y affect the results such as a poorly collected sample, viral titers below th e limit of detection of th e assay, and the infrequent possibility of inhibitors in the sample. Thi s result should b e interpreted in conjunction wit h clinical, radiographic, and other laboratory findings and should not be used as the gene e indicator of active infectio n with SARS-CoV-2 Coronavirus (COVID-19). JASMEET (test code = COMMENT: This JASMEET) CepInspro Xpert Xpress SARS-CoV-2 real-time PCR test was developed, and its performance characteristics determined by the [facility] and is acceptable for patient testing. It has been approved for patient testing by the FDA under the Emergency Use Authorization pathway. This laboratory is certified under federal CLIA regulations to perform this type of high complexity testing. Lab Interpretation Normal (test code = 40541-7) [facility], CoVID-19, [id number] 05:23:56 Test Item Value Reference Interpretation Comments Range COVID-19 Not Detected Not Detected INTERPRETATION: (SARS-COV-2) (test No detect able code = 76444-9) levels of SARS-CoV-2 Coronavirus (COVID-19) were present in this patient's sampl e by this test. A not detected result does not exclude the possibility of active infectio n with this virus due to other factors that ma y affect the results such as a poorly collected sample, viral titers below th e limit of detection of th e assay, and the infrequent possibility of inhibitors in the sample. Thi s result should b e interpreted in conjunction wit h clinical, radiographic, and other laboratory findings and should not be used as the gene e indicator of active infectio n with SARS-CoV-2 Coronavirus (COVID-19). JASMEET (test code = COMMENT: This JASMEET) CepInspro Xpert Xpress SARS-CoV-2 real-time PCR test was developed, and its performance characteristics determined by the [facility] diagnostic [facility] and is acceptable for patient testing. It has been approved for patient testing by the FDA under the Emergency Use Authorization pathway. This laboratory is certified under federal CLIA regulations to perform this type of high complexity testing. Lab Interpretation Normal (test code = 72995-3) [place] [facility], CoVID-19, [id number] 05:23:56 Test Item Value Reference Interpretation Comments Range COVID-19 Not Detected Not Detected INTERPRETATION: (SARS-COV-2) (test No detect able code = 11416-2) levels of SARS-CoV-2 Coronavirus (COVID-19) were present in this patient's sampl e by this test. A not detected result does not exclude the possibility of active infectio n with this virus due to other factors that ma y affect the results such as a poorly collected sample, viral titers below th e limit of detection of th e assay, and the infrequent possibility of inhibitors in the sample. Thi s result should b e interpreted in conjunction wit h clinical, radiographic, and other laboratory findings and should not be used as the gene e indicator of active infectio n with SARS-CoV-2 Coronavirus (COVID-19). JASMEET (test code = COMMENT: This JASMEET) CepInspro Xpert Xpress SARS-CoV-2 real-time PCR test was developed, and its performance characteristics determined by the [facility] diagnostic [facility] and is acceptable for patient testing. It has been approved for patient testing by the FDA under the Emergency Use Authorization pathway. This laboratory is certified under federal CLIA regulations to perform this type of high complexity testing. Lab Interpretation Normal (test code = 09576-5) [facility] Diaavirus, CoVID-19, [id number] 05:23:56 Test Item Value Reference Interpretation Comments Range COVID-19 Not Detected Not Detected INTERPRETATION: (SARS-COV-2) (test No detect able code = 06196-3) levels of SARS-CoV-2 Coronavirus (COVID-19) were present in this patient's sampl e by this test. A not detected result does not exclude the possibility of active infectio n with this virus due to other factors that ma y affect the results such as a poorly collected sample, viral titers below th e limit of detection of th e assay, and the infrequent possibility of inhibitors in the sample. Thi s result should b e interpreted in conjunction wit h clinical, radiographic, and other laboratory findings and should not be used as the gene e indicator of active infectio n with SARS-CoV-2 Coronavirus (COVID-19). JASMEET (test code = COMMENT: This JASMEET) GeoGRAFI Xpert Xpress SARS-CoV-2 real-time PCR test was developed, and its performance characteristics determined by the [facility] diagnostic [facility] and is acceptable for patient testing. It has been approved for patient testing by the FDA under the Emergency Use Authorization pathway. This laboratory is certified under federal CLIA regulations to perform this type of high complexity testing. Lab Interpretation Normal (test code = 90705-7) [facility] Pierceronshannon, CoVID-19, [id number] 05:23:56 Test Item Value Reference Interpretation Comments Range COVID-19 Not Detected Not Detected INTERPRETATION: (SARS-COV-2) (test No detect able code = 18337-1) levels of SARS-CoV-2 Coronavirus (COVID-19) were present in this patient's sampl e by this test. A not detected result does not exclude the possibility of active infectio n with this virus due to other factors that ma y affect the results such as a poorly collected sample, viral titers below th e limit of detection of th e assay, and the infrequent possibility of inhibitors in the sample. Thi s result should b e interpreted in conjunction wit h clinical, radiographic, and other laboratory findings and should not be used as the gene e indicator of active infectio n with SARS-CoV-2 Coronavirus (COVID-19). JASMEET (test code = COMMENT: This JASMEET) Cepheid Xpert Xpress SARS-CoV-2 real-time PCR test was developed, and its performance characteristics determined by the [facility] diagnostic [facility] and is acceptable for patient testing. It has been approved for patient testing by the FDA under the Emergency Use Authorization pathway. This laboratory is certified under federal CLIA regulations to perform this type of high complexity testing. Lab Interpretation Normal (test code = 65654-7) [facility], CoVID-19, [id number] 05:23:56 Test Item Value Reference Interpretation Comments Range COVID-19 Not Detected Not Detected INTERPRETATION: (SARS-COV-2) (test No detect able code = 79934-5) levels of SARS-CoV-2 Coronavirus (COVID-19) were present in this patient's sampl e by this test. A not detected result does not exclude the possibility of active infectio n with this virus due to other factors that ma y affect the results such as a poorly collected sample, viral titers below th e limit of detection of th e assay, and the infrequent possibility of inhibitors in the sample. Thi s result should b e interpreted in conjunction wit h clinical, radiographic, and other laboratory findings and should not be used as the gene e indicator of active infectio n with SARS-CoV-2 Coronavirus (COVID-19). JASMEET (test code = COMMENT: This JASMEET) Cepheid Xpert Xpress SARS-CoV-2 real-time PCR test was developed, and its performance characteristics determined by the [facility] and is acceptable for patient testing. It has been approved for patient testing by the FDA under the Emergency Use Authorization pathway. This laboratory is certified under federal CLIA regulations to perform this type of high complexity testing. Lab Interpretation Normal (test code = 80393-6) [facility] GascaPkawroLTOF-TaL-0 RNA Resp Ql [id number] 05:23:56 Test Item Value Reference Range Interpretation Comments Hospitalized? (test No code = 31391-2) ICU? (test code = No 54301-8) Symptomatic as defined No by CDC? (test code = 82323-4) Employed in No Healthcare? (test code = 97264-3) Resident in a No congregate care setting (including nursing homes, residential care for people with intellectual and developmental disabilities, psychiatric treatment facilities, group homes, board and care homes, homeless senior care, foster care or other): (test code = 00621-6) ? (test code = No 69503-5) SARS-CoV-2 RNA Resp Ql NOT DETECTED Not Detected INTER PRETATION: No MANJIT+probe (test code = detec table levels 61002-5) of SARS-CoV-2 Coronavirus (COVID-19) were present in this patient's sampl e by this test. A no t detected result does not exclud e the possibility of active infectio n with this virus due to other factor s that may affect the results such as a poorly collecte d sample, viral titers below th e limit of detect ion of the assay, a nd the infrequent possibility of inhibitors in t he sample. This re sult should be interpreted in conjunction wit h clinical, radiographic, a nd other laborator y findings and sh ould not be used as the sole indicator of active infectio n with SARS-CoV-2 Coronavirus (COVID-19). COMMENT: This GeoGRAFI Xpert Xpress SARS-CoV-2 real-time PCR test was developed, and its performance characteristics determined by the [facility] diagnostic [facility] and is acceptablefor patient testing. It has been approved for patient testing by the FDA under the Emergency Use Auth orization pathway. This laboratory is certified under federal CLIA regulations to perform this type of high complexity testing.[facility] 2022-06-12 06:20:06 Test Item Value Reference Range Interpretation Comments TSH, THIRD 0.023 UIU/ML 0.400-4.100 L UNLESS OTHERWI SE GENERATION (test INDICATED, ALL TESTING code = 2821) [facility]FORMED [facility], [facility]. [address] [place] [id number] [place] [address] DIRECTOR: JOVANA HAQ M.D. CLIA NUMBER [id number] CAP ACCREDITATION N O. [id number] Troponin I - Code [id number] 22:05:04 Test Item Value Reference Interpretation Comments Range TROPONIN I (test 0.001 ng/mL See_Comment [Automated code = [id number]) message] The system which generated this result [...] biotin. Lab Interpretation Normal (test code = 29545-8) [facility] Code [id number] 21:52:45 Test Item Value Reference Range Interpretation Comments APTT Patient (test See_Comment [Automat ed code = 3173-2) message] The system which generated this result transmitted reference range : 23 - 38 Seconds . The reference range was not used to interpr et this result as normal/abnormal . JASMEET (test code = JASMEET) The [facility] patient population mean normal value for aPTT is 30 seconds. Lab Interpretation Normal (test code = 05398-1) [facility] Met[facility] Panel (NA, K, CL, CO2, Glucose, BUN, Creatinine, CA) - Code [id number] 21:52:45 Test Item Value Reference Range Interpretation Comments NA (test code = 139 mmol/L 135-145 [id number]) K (test code = 4.2 mmol/L 3.5-5.0 8705633816) CL (test code = 103 mmol/L 98-108 8206308591) CO2 TOTAL (test code = 27 mmol/L 23-31 7284111212) AGAP (test code = 2-16 6659137182) BUN (test code = 3 mg/dL 7-23 L 3930717460) GLUCOSE (test code = 99 mg/dL 70-110 1400063675) CREATININE (test code = 0.58 mg/dL 0.50-1.04 5650466351) CALCIUM (test code = 8.9 mg/dL 8.6-10.6 1185415750) eGFR (test code = mL/min/1.73m2 9394896951) JASMEET (test code = JASMEET) Association of [...] tests). Lab Interpretation Abnormal (test code = 93260-1) [facility]thrombin Time / INR - Code [id number] 21:50:26 Test Item Value Reference Range Interpretation Comments PROTIME PATIENT (test See_Comment [Auto mated message] code = 5964-2) The system [employer]Videos[employer] generated this result transmitted ref erence range: 12.0 - 1 4.7 Seconds. The re ference range was not u sed to interpret this result as normal/abnor mal. INR (test code = 6301-6) Nor mal INR <1.1; Warfarin Therap eutic range 2.0 to 3. 0 or 2.5 to 3.5, dep ending upon the indica tions. Lab Interpretation (test Normal code = 00804-2) [facility] without Diff - Code [id number] 21:43:21 Test Item Value Reference Range Interpretation Comments WBC (test code = 6690-2) See_Comment [A utomated message] The system InMyShow generated this result transmit justino reference range : 4.30 - 11.10 10*3/?L. The reference range was not used to interpret this result as normal/abnormal . RBC (test code = 789-8) See_Comment [Au tomated message] The system InMyShow generated this result transmit justino reference range : 3.93 - 5.25 10* [...] 777-3) See_Comment [Au tomated message] The system InMyShow generated this result transmit justino reference range : 166 - 358 10*3/?L. The reference range was not used to interpret this result as normal/abnormal . MPV (test code = 9.9 fL 9.5-12.9 64952-0) RDW-CV (test code = 11.4 % 12.0-15.5 L 788-0) RDW-SD (test code = 38.6 fL 39.0-49.9 L 89726-5) NRBC x10^3 (test code = See_Comment [Au tomated message] [id number]) The system InMyShow generated this result transmit justino reference range : 10*3/?L. The reference range was not used to interpret this result as normal/abnormal . NRBC/100 WBC (test code See_Comment [Au tomated message] = 0618040660) The system Yuepu Sifang generated this result transmit justino reference range : 0.0 - 10.0 /100 WBC s. The reference r fiona was not used to interpret this result as normal/abnormal . IPF % (test code = 4610793940) Lab Interpretation (test Abnormal code = 95616-7) [facility]2022-05-31 21:38:39 Test Item Value Reference Range Interpretation Comments POCT GLU (test code = 0582236645) 116 mg/dL 70-110 H Lab Interpretation (test code = Abnormal 27419-1) [facility] Station[facility]ULTURE, [id number] 11:21:16SPECIMEN NUMBER: [id number] CULTURE, URINE SPECIMEN NUMBER: [id number] SPECIMEN COMMENT: URINE SOURCE:URINE REPORT STATUS: FINAL ISOLATE NUMBER 1: ORGANISM: 04/17/2022 >100,000 CFU/ML GRAM NEGATIVE BACILLI IDENTIFICATION: 04/18/2022 KLEBSIELLA OXYTOCA K. OXYTOCA AMOXICILLIN/CA SENSITIVE <=8/4AMPICILLIN RESISTANT >16CEFAZOLIN SENSITIVE 8CEFTRIAXONE SENSITIVE <=1CIPROFLOXACIN SENSITIVE <=1LEVOFLOXACIN SENSITIVE <=2NITROFURANTOIN SENSITIVE <=32PIP/TAZOBAC SENSITIVE <=16TETRACYCLINE SENSITIVE <=4TOBRAMYCIN SENSITIVE <=4TRIMETH/SULFA SENSITIVE <=2/38 NOTE: NUMBERS DISPLAYED REPRESENT MINIMUM INHIBITORY CONCENTRATION (YANIRA) WHICH IS EXPRESSED IN MCG/ML. UNLESS OTHERWISE INDICATED, ALL TESTING PERFORMED [facility] [address] [place] [address] SOFTWARE APPLICATIONS ARCHITECT: JOVANA HAQ M.D. CLIA NUMBER [id number] [place]. [id number], [id number] 00:00:00 Test Item Value Reference Range Interpretation Comments CULTURE, URINE (test SPECIMEN NUMBER: code = 81230) [id number] CULTURE, [id number] 00:00:00 Test Item Value Reference Range Interpretation Comments CULTURE, URINE (test SPECIMEN NUMBER: code = 29077) [id number] CULTURE, [id number] 00:00:00 Test Item Value Reference Range Interpretation Comments CULTURE, URINE (test SPECIMEN NUMBER: code = 54093) [id number] CULTURE, [id number] 00:00:00 Test Item Value Reference Range Interpretation Comments CULTURE, URINE (test SPECIMEN NUMBER: code = 65306) [id number] CBC W/AUTO [id number] 00:00:00 Test Item Value Reference Range Interpretation [...] NUCLEATED RBCS (test code = 0.00 K/UL 61922) LIPID [id number] 00:00:00 Test Item Value Reference Range Interpretation Comments CHOLESTEROL (test code = 2210) 269 MG/DL TRIGLYCERIDES (test code = 2232) 111 MG/DL HDL CHOLESTEROL (test code = 2220) 42 MG/DL CALC LDL CHOL (test code = 2237) 202 MG/DL RISK RATIO LDL/HDL (test code = 4.81 RATIO 2238) LIPID [id number] 00:00:00 Test Item Value Reference Range Interpretation Comments CHOLESTEROL (test code = 2210) 269 MG/DL TRIGLYCERIDES (test code = 2232) 111 MG/DL HDL CHOLESTEROL (test code = 2220) 42 MG/DL CALC LDL CHOL (test code = 2237) 202 MG/DL RISK RATIO LDL/HDL (test code = 4.81 RATIO 2238) CBC W/AUTO [id number] 00:00:00 Test Item Value Reference Range Interpretation [...] NUCLEATED RBCS (test code = 0.00 K/UL 54166) CBC W/AUTO [id number] 00:00:00 Test Item Value Reference Range Interpretation [...] NUCLEATED RBCS (test code = 0.00 K/UL 88200) LIPID [id number] 00:00:00 Test Item Value Reference Range Interpretation Comments CHOLESTEROL (test code = 2210) 269 MG/DL TRIGLYCERIDES (test code = 2232) 111 MG/DL HDL CHOLESTEROL (test code = 2220) 42 MG/DL CALC LDL CHOL (test code = 2237) 202 MG/DL RISK RATIO LDL/HDL (test code = 4.81 RATIO 2238) TSH, THIRD [id number] 00:00:00 Test Item Value Reference Range Interpretation Comments TSH, THIRD GENERATION (test >100.000 UIU/ML code = 2821) TSH, THIRD [id number] 00:00:00 Test Item Value Reference Range Interpretation Comments TSH, THIRD GENERATION (test >100.000 UIU/ML code = 2821) TSH, THIRD [id number] 00:00:00 Test Item Value Reference Range Interpretation Comments TSH, THIRD GENERATION (test >100.000 UIU/ML code = 2821) COMPREHENSIVE METABOLIC [id number] 00:00:00 Test Item Value Reference Range Interpretation Comments GLUCOSE (test code = 2217) 91 MG/DL BUN (test code = 2208) 4 MG/DL CREATININE (test code = 2214) 1.18 MG/DL eGFR (2020 CKD-EPI) (test code 59 ML/MIN/1.73 = 52734) CALC BUN/CREAT (test code = 3 RATIO [...] code = 2219) 16 U/L COMPREHENSIVE METABOLIC [id number] 00:00:00 Test Item Value Reference Range Interpretation Comments GLUCOSE (test code = 2217) 91 MG/DL BUN (test code = 2208) 4 MG/DL CREATININE (test code = 2214) 1.18 MG/DL eGFR (2020 CKD-EPI) (test code 59 ML/MIN/1.73 = 05743) CALC BUN/CREAT (test code = 3 RATIO [...] code = 2219) 16 U/L CBC W/AUTO [id number] 00:00:00 Test Item Value Reference Range Interpretation [...] NUCLEATED RBCS (test code = 0.00 K/UL 36214) CBC W/AUTO [id number] 00:00:00 Test Item Value Reference Range Interpretation [...] NUCLEATED RBCS (test code = 0.00 K/UL 47798) LIPID [id number] 00:00:00 Test Item Value Reference Range Interpretation Comments CHOLESTEROL (test code = 2210) 269 MG/DL TRIGLYCERIDES (test code = 2232) 111 MG/DL HDL CHOLESTEROL (test code = 2220) 42 MG/DL CALC LDL CHOL (test code = 2237) 202 MG/DL RISK RATIO LDL/HDL (test code = 4.81 RATIO 2238) CBC W/AUTO [id number] 00:00:00 Test Item Value Reference Range Interpretation [...] NUCLEATED RBCS (test code = 0.00 K/UL 92310) LIPID [id number] 00:00:00 Test Item Value Reference Range Interpretation Comments CHOLESTEROL (test code = 2210) 269 MG/DL TRIGLYCERIDES (test code = 2232) 111 MG/DL HDL CHOLESTEROL (test code = 2220) 42 MG/DL CALC LDL CHOL (test code = 2237) 202 MG/DL RISK RATIO LDL/HDL (test code = 4.81 RATIO 2238) LIPID [id number] 00:00:00 Test Item Value Reference Range Interpretation Comments CHOLESTEROL (test code = 2210) 269 MG/DL TRIGLYCERIDES (test code = 2232) 111 MG/DL HDL CHOLESTEROL (test code = 2220) 42 MG/DL CALC LDL CHOL (test code = 2237) 202 MG/DL RISK RATIO LDL/HDL (test code = 4.81 RATIO 2238) TSH, THIRD [id number] 00:00:00 Test Item Value Reference Range Interpretation Comments TSH, THIRD GENERATION (test >100.000 UIU/ML code = 2821) TSH, THIRD [id number] 00:00:00 Test Item Value Reference Range Interpretation Comments TSH, THIRD GENERATION (test >100.000 UIU/ML code = 2821) TSH, THIRD [id number] 00:00:00 Test Item Value Reference Range Interpretation Comments TSH, THIRD GENERATION (test >100.000 UIU/ML code = 2821) COMPREHENSIVE METABOLIC [id number] 00:00:00 Test Item Value Reference Range Interpretation Comments GLUCOSE (test code = 2217) 91 MG/DL BUN (test code = 2208) 4 MG/DL CREATININE (test code = 2214) 1.18 MG/DL eGFR (2020 CKD-EPI) (test code 59 ML/MIN/1.73 = 92288) CALC BUN/CREAT (test code = 3 RATIO [...] code = 2219) 16 U/L COMPREHENSIVE METABOLIC [id number] 00:00:00 Test Item Value Reference Range Interpretation Comments GLUCOSE (test code = 2217) 91 MG/DL BUN (test code = 2208) 4 MG/DL CREATININE (test code = 2214) 1.18 MG/DL eGFR (2020 CKD-EPI) (test code 59 ML/MIN/1.73 = 50154) CALC BUN/CREAT (test code = 3 RATIO [...] code = 2219) 16 U/L CBC W/AUTO [id number] 00:00:00 Test Item Value Reference Range Interpretation [...] NUCLEATED RBCS (test code = 0.00 K/UL 79807) CBC W/AUTO [id number] 00:00:00 Test Item Value Reference Range Interpretation [...] NUCLEATED RBCS (test code = 0.00 K/UL 30888) CBC W/AUTO [id number] 00:00:00 Test Item Value Reference Range Interpretation [...] NUCLEATED RBCS (test code = 0.00 K/UL 26635) LIPID [id number] 00:00:00 Test Item Value Reference Range Interpretation Comments CHOLESTEROL (test code = 2210) 269 MG/DL TRIGLYCERIDES (test code = 2232) 111 MG/DL HDL CHOLESTEROL (test code = 2220) 42 MG/DL CALC LDL CHOL (test code = 2237) 202 MG/DL RISK RATIO LDL/HDL (test code = 4.81 RATIO 2238) LIPID [id number] 00:00:00 Test Item Value Reference Range Interpretation Comments CHOLESTEROL (test code = 2210) 269 MG/DL TRIGLYCERIDES (test code = 2232) 111 MG/DL HDL CHOLESTEROL (test code = 2220) 42 MG/DL CALC LDL CHOL (test code = 2237) 202 MG/DL RISK RATIO LDL/HDL (test code = 4.81 RATIO 2238) TSH, THIRD [id number] 00:00:00 Test Item Value Reference Range Interpretation Comments TSH, THIRD GENERATION (test >100.000 UIU/ML code = 2821) TSH, THIRD [id number] 00:00:00 Test Item Value Reference Range Interpretation Comments TSH, THIRD GENERATION (test >100.000 UIU/ML code = 2821) TSH, THIRD [id number] 00:00:00 Test Item Value Reference Range Interpretation Comments TSH, THIRD GENERATION (test >100.000 UIU/ML code = 2821) TSH, THIRD [id number] 00:00:00 Test Item Value Reference Range Interpretation Comments TSH, THIRD GENERATION (test >100.000 UIU/ML code = 2821) TSH, THIRD [id number] 00:00:00 Test Item Value Reference Range Interpretation Comments TSH, THIRD GENERATION (test >100.000 UIU/ML code = 2821) COMPREHENSIVE METABOLIC [id number] 00:00:00 Test Item Value Reference Range Interpretation Comments GLUCOSE (test code = 2217) 91 MG/DL BUN (test code = 2208) 4 MG/DL CREATININE (test code = 2214) 1.18 MG/DL eGFR (2020 CKD-EPI) (test code 59 ML/MIN/1.73 = 93988) CALC BUN/CREAT (test code = 3 RATIO [...] code = 2219) 16 U/L COMPREHENSIVE METABOLIC [id number] 00:00:00 Test Item Value Reference Range Interpretation Comments GLUCOSE (test code = 2217) 91 MG/DL BUN (test code = 2208) 4 MG/DL CREATININE (test code = 2214) 1.18 MG/DL eGFR (2020 CKD-EPI) (test code 59 ML/MIN/1.73 = 33225) CALC BUN/CREAT (test code = 3 RATIO [...] code = 2219) 16 U/L CBC W/AUTO [id number] 00:00:00 Test Item Value Reference Range Interpretation [...] NUCLEATED RBCS (test code = 0.00 K/UL 48526) CBC W/AUTO [id number] 00:00:00 Test Item Value Reference Range Interpretation [...] NUCLEATED RBCS (test code = 0.00 K/UL 45954) CBC W/AUTO [id number] 00:00:00 Test Item Value Reference Range Interpretation [...] NUCLEATED RBCS (test code = 0.00 K/UL 70965) LIPID [id number] 00:00:00 Test Item Value Reference Range Interpretation Comments CHOLESTEROL (test code = 2210) 269 MG/DL TRIGLYCERIDES (test code = 2232) 111 MG/DL HDL CHOLESTEROL (test code = 2220) 42 MG/DL CALC LDL CHOL (test code = 2237) 202 MG/DL RISK RATIO LDL/HDL (test code = 4.81 RATIO 2238) LIPID [id number] 00:00:00 Test Item Value Reference Range Interpretation Comments CHOLESTEROL (test code = 2210) 269 MG/DL TRIGLYCERIDES (test code = 2232) 111 MG/DL HDL CHOLESTEROL (test code = 2220) 42 MG/DL CALC LDL CHOL (test code = 2237) 202 MG/DL RISK RATIO LDL/HDL (test code = 4.81 RATIO 2238) TSH, THIRD [id number] 00:00:00 Test Item Value Reference Range Interpretation Comments TSH, THIRD GENERATION (test >100.000 UIU/ML code = 2821) COMPREHENSIVE METABOLIC [id number] 00:00:00 Test Item Value Reference Range Interpretation Comments GLUCOSE (test code = 2217) 91 MG/DL BUN (test code = 2208) 4 MG/DL CREATININE (test code = 2214) 1.18 MG/DL eGFR (2020 CKD-EPI) (test code 59 ML/MIN/1.73 = 76769) CALC BUN/CREAT (test code = 3 RATIO [...] code = 2219) 16 U/L COMPREHENSIVE METABOLIC [id number] 00:00:00 Test Item Value Reference Range Interpretation Comments GLUCOSE (test code = 2217) 91 MG/DL BUN (test code = 2208) 4 MG/DL CREATININE (test code = 2214) 1.18 MG/DL eGFR (2020 CKD-EPI) (test code 59 ML/MIN/1.73 = 44080) CALC BUN/CREAT (test code = 3 RATIO [...] code = 2219) 16 U/L TSH, THIRD [id number] 00:00:00 Test Item Value Reference Range Interpretation Comments TSH, THIRD GENERATION (test >100.000 UIU/ML code = 2821) TSH, THIRD [id number] 00:00:00 Test Item Value Reference Range Interpretation Comments TSH, THIRD GENERATION (test >100.000 UIU/ML code = 2821) TSH, THIRD [id number] 00:00:00 Test Item Value Reference Range Interpretation Comments TSH, THIRD GENERATION (test >100.000 UIU/ML code = 2821) COMPREHENSIVE METABOLIC [id number] 00:00:00 Test Item Value Reference Range Interpretation Comments GLUCOSE (test code = 2217) 91 MG/DL BUN (test code = 2208) 4 MG/DL CREATININE (test code = 2214) 1.18 MG/DL eGFR (2020 CKD-EPI) (test code 59 ML/MIN/1.73 = 87244) CALC BUN/CREAT (test code = 3 RATIO [...] code = 2219) 16 U/L COMPREHENSIVE METABOLIC [id number] 00:00:00 Test Item Value Reference Range Interpretation Comments GLUCOSE (test code = 2217) 91 MG/DL BUN (test code = 2208) 4 MG/DL CREATININE (test code = 2214) 1.18 MG/DL eGFR (2020 CKD-EPI) (test code 59 ML/MIN/1.73 = 12101) CALC BUN/CREAT (test code = 3 RATIO [...] code = 2219) 16 U/L CBC W/AUTO [id number] 00:00:00 Test Item Value Reference Range Interpretation [...] NUCLEATED RBCS (test code = 0.00 K/UL 24586) CBC W/AUTO [id number] 00:00:00 Test Item Value Reference Range Interpretation [...] NUCLEATED RBCS (test code = 0.00 K/UL 51475) CBC W/AUTO [id number] 00:00:00 Test Item Value Reference Range Interpretation [...] NUCLEATED RBCS (test code = 0.00 K/UL 36668) [id number] 04:33:00 Test Item Value Reference Range Interpretation Comments APPEARANCE (test code = Clear Clear 4180142794) COLOR (test code = Yellow Yellow 8893741924) PH (test code = 4.8-8.0 4691920857) SP GRAVITY (test code = 1.003-1.030 H 6915832571) GLU U QUAL (test code = Normal Normal 6301282781) BLOOD (test code = Negative Negative 3009714418) KETONES (test code = Negative Negative 4861109477) PROTEIN (test code = Negative Negative 2887-8) UROBILIN (test code = Normal Normal 1399691814) BILIRUBIN (test code = Negative Negative 4070874477) NITRITE (test code = Negative Negative 8395651476) LEUK VY (test code = Negative Negative 7982976885) RBC/HPF (test code = See_Comment [Autom ated message] 9073156238) The system InMyShow generated this result transmitted ref erence range: 0 - 3 HP F. The reference range was not used to int erpret this result as normal/abnormal . WBC/HPF (test code = <1 See_Comment [Autom ated message] 3451352327) The system InMy[employer] generated this result transmitted ref erence range: 0 - 5 HP F. The reference range was not used to int erpret this result as normal/abnormal . BACTERIA (test code = Few Negative A 7899950691) SQ EPITH (test code = <1 HPF 6559227651) Lab Interpretation (test Abnormal code = 79527-4) [facility] CHEST PULMONARY [id number] 02:56:04Impression: 1. Patchy ground glass opacities, predominating [...] in appearance.4. Cholecystect rina.RL: 460End of Report UnCH[facility] SpringsXR CHEST 1 [id number] 02:20:50 Impression: No acute abnormalities evident. RL: [...] theabdomen. No acute bony abnormalities are evident. [facility], Radiant Results Inft User - 05/30/2020 8:21 PM CSTOrdering Physician: JANENE R MEDINAHistory: Short of breathTechnique: Chest, single viewComparison: NoneFindings: The lungs are clear. No pleural effusions are evident. Heart size isnormal. The superior mediastinal silhouette is unremarkable for age andprojection. Surgical clips are seen within the right upper quadrant of theabdomen. No acute bony abnormalities are evident.IMPRESSIONImpression:No acute abnormalities evident.RL: 460End of Report UnCH[facility] SpringsPOCT [id number] 01:29:00 Test Item Value Reference Range Interpretation Comments POCT PREG (test code = Hysterectomy HX of Hysterectomy 1605) Lab Interpretation Normal (test code = 60732-1) [facility]OVID[facility] (ID NOW RAPID TESTING)2020-05-31 01:23:00 Test Item Value Reference Range Interpretation Comments SARS-CoV-2 Rapid ID NOW Not Detected Not Detected (test code = 12287-8) JASMEET (test code = JASMEET) ID NOW COVID-19 Assay is an isothermal nucleic acid amplification test intended for the qualitative detection of nucleic acid from SARS-CoV-2 viral RNA in nasopharyngeal (DIRECTOR OF IT OPERATIONS) specimens. It is used under Emergency Use [...] indicated. Lab Interpretation Normal (test code = 49064-4) [facility] StationTROPONIN [id number] 00:41:00 Test Item Value Reference Range Interpretation Comments TROPONIN I (test <0.012 See_Comment [Automated code = 0148722420) message] The system which generated this result [...] ? Lab Interpretation Normal (test code = 56571-2) [facility]. METABOLIC PANEL (01229)2020-05-31 00:32:00 Test Item Value Reference Range Interpretation Comments NA (test code = 138 mmol/L 135-145 9106215245) K (test code = 4.0 mmol/L 3.5-5 9876597523) CL (test code = 101 mmol/L 98-108 9359851155) CO2 TOTAL (test code = 27 mmol/L 23-31 0473177524) AGAP (test code = 2-16 0034143985) BUN (test code = 5 mg/dL 7-23 L 2503953955) GLUCOSE (test code = 136 mg/dL 70-110 H 4291103532) CREATININE (test code = 0.56 mg/dL 0.5-1.04 3454012890) TOTAL BILI (test code = 0.4 mg/dL 0.1-1.0 6770559553) CALCIUM (test code = 9.0 mg/dL 8.6-10.6 8870425848) T PROTEIN (test code = 8.3 g/dL 6.3-8.2 H 0029216658) ALBUMIN (test code = 4.6 g/dL 3.5-5 8835269534) ALK PHOS (test code = 93 U/L 34-122 9531438127) ALTv (test code = 21 U/L 5-35 1742-6) AST(SGOT) (test code = 25 U/L 13-40 1865572849) eGFR Calculation mL/min/1.73m2 (Non-) (test code = 2351956600) eGFR Calculation mL/min/1.73m2 () (test code = 1408804405) JASMEET (test code = JASMEET) Association of [...] tests). Lab Interpretation Abnormal (test code = 65383-8) [facility] StationD-[id number] 00:30:00 Test Item Value Reference Interpretation Comments Range D-DIMER (test code = See_Comment H [Autom ated 3750608704) message] The system which generated this result [...] diagnosis. Lab Interpretation Abnormal (test code = 67385-8) [facility] WITH [id number] 00:13:00 Test Item Value Reference Range Interpretation Comments WBC (test code = See_Comment H [Automated 3372-2) message] The system which generated this result transmit justino reference range : 4.30 - 11.10 10*3/?L. The reference range was not used to interpret this result as normal/abnormal . RBC (test code = See_Comment [Automated 415-8) message] The system which generated this result [...] RDW-SD (test code = 40.5 fL 39-49.9 74126-9) RDW-CV (test code = 12.2 % 12-15.5 788-0) PLT (test code = See_Comment [Automated 777-3) message] The system which generated this result transmit justino reference range : 166 - 358 10*3/ ?L. The reference range was not u sed to interpret th is result as normal/abnormal . MPV (test code = 9.4 fL 9.5-12.9 L 64972-3) NRBC/100 WBC (test See_Comment [Automat ed code = 7462517507) message] The system which generated this result transmit justino reference range : 0.0 - 10.0 /100 WBCs. The reference range was not used to interpret this result as normal/abnormal . NRBC x10^3 (test code <0.01 See_Comment [Auto mated = 8543295055) message] The system which generated this result transmit justino reference range : 10*3/?L. The reference range was not used to interpret this result as normal/abnormal . GRAN MAT (NEUT) % 93.5 % (test code = 770-8) IMM GRAN % (test code 0.80 % = 0817002780) LYMPH % (test code = 4.8 % 736-9) MONO % (test code = 0.6 % 5905-5) EOS % (test code = 0.1 % 713-8) BASO % (test code = 0.2 % 706-2) GRAN MAT x10^3(ANC) 13.73 10*3/uL 1.88-7.09 H (test code = 3478869750) IMM GRAN x10^3 (test 0.12 10*3/uL 0-0.06 H code = 4146808318) LYMPH x10^3 (test code 0.71 10*3/uL 1.32-3.29 L = 731-0) MONO x10^3 (test code 0.09 10*3/uL 0.33-0.92 L = 742-7) EOS x10^3 (test code = <0.03 0.03-0.39 L 711-2) BASO x10^3 (test code 0.03 10*3/uL 0.01-0.07 = 704-7) Lab Interpretation Abnormal (test code = 11468-0) [facility] History and Physical Notes Date/Time Note Provider Source 2022-06-22 Formatting of this note is different from the or iginal. [facility] 04:37:21-00:00 HOT Admit X History & Physical for HOT 1 Attending Admission History & Physical For overnight issues until 7 am on 06/22/22, please message Sugey Ab on [employer] Secure Chat. Assessment & Plan: Ms. Nolan is a 42 year old f emale with epilepsy on AEDs, history of multiple CVAs (at least 5, last 04/2021), mood disorder with history of SI, RA on hydroxychloroquine, neurogenic bladder with chronic Hernandez, hypothyroidism, insom josseline, vision impairment, functional limitations from impaired ADLs who is admitted for suicidal ideation. #Suicidal ideation: Has history of SI. States sh e would try to slit her wrists if able to. Has extensive history of SI. TSH low, has been off FT4 for around 2 weeks now, has had difficulty dosing, though SI/depression have been longstanding, attributed to social situation and chronic medical issues. -will need to consult inpatient psych team in AM -will increase escitalopram to 20mg daily -will increase trazodone to 200mg qHS -check EKG for QTc as pt on several QT prolongin g drugs, incl Plaquenil -continue 1:1 sitter #Hypothyroidism: TSH low. FT4 wnl. Likely subclinical hyperthyroi dism. -will check T3 and FT3 #Neurogenic bladder: Hernandez placed 02/2022 in [facility] ER without subsequent voiding trial or follow up with urology given financial difficulty. Patient has longstanding history of neurogenic bladder, previously having done s traight caths and using adul t diapers. Has had UTIs associated with Hernandez, most recently s/p course of cefdinir in May 2022. Currently without s/s of UTI. -will attempt voiding trial while here -continue home oxybutynin #Epilepsy: Has had several breakthrough seizures in the past few years, including resulting in upper extremity weakness and diminished function per pt, requiring 's assistance with ADLs. -will continue home Keppra 1500mg BID, Vimpat 50 mg BID -seizure precautions #CVA: -continue asa and statin for secondary preventio n #Neuropathic pain: -continue gabapentin #RA: -continue home hydroxychloroquine #Chronic hypotension: Due to CVAs? -continue home midodrine Medication Reconciliation: Complete Diet: Regular Prophylaxis: Lovenox Code: Full Dispo: Pending IP psych recs Sugey Morales MD Rn Ccu, [facility] Internal Medicine #[id number] Patient identified by verbal ly telling name, and armband was visualized and verified as matching verbal information provided by patient. Admission Diagnosis: Suicidal ideation Chief Complaint: Suicidal ideation History Obtained From: Patient, Spouse History of Present Illness: Ms. Nolan is a 42 year old f emale with epilepsy on AEDs, history of multiple CVAs (at least 5, last 04/2021), mood disorder with history of SI, RA on hydroxychloroquine, neurogenic bladder with chronic Hernandez, hypothyroidism, insom josseline, vision impairment, functional limitations from impaired ADLs who is admitted for suicidal ideation. History obtained at bedside directly from the holden claros, who was A&Ox4. Patient was told to present to the hospital after a visit with her therapist, during which patient expressed suicidal ideation. States that, given the chance, she would likely slit her wrists. Patient h as a chronic history of SI a nd has struggled with depression for a long time. Attributes a large part of her symptoms to stressors and having lived with chronic diseases such as RA and epilepsy, and hav ing had multiple strokes. Bravo s functional limitations and vision impairment as a result of strokes and seizures, and unable to perform ADLs, for which helps her quite a bit. Patient denied any ot her acute medical complaints . States that she's holding her levothyroxine because her TSH has been low and that it's always been difficult to control and get in the proper range. Had a Hernandez placed in [facility] ER Feb 2022 due to her ch ronic neuropathic bladder, and has not been able to follow up with urology due to financial issues. ER Course: Presented with stable labs a nd vitals. TSH 0.16, FT4 wnl. ER psych evaluated and recommended inpatient psych. Patient likely voluntary as that is how she presented to ER. History: The allergies, medi cations, past medical, surgical, family and social histories were reviewed and documented in the appropriate sections in [employer]. Medical: Reviewed No past medical history on file. Surgical: Reviewed No past surgical history on file. Social: Reviewed Social History Tobacco Use Smoking status: Not on file Smokeless tobacco: Not on file Substance Use Topics Alcohol use: Not on file Family: Reviewed No family history on file. Prior to admission medications: Reviewed None Current medications: Reviewed No current facility-administered medications for this encounter. No current outpatient medications on file. Allergies: Reviewed Allergies Allergen Reactions Prednisone Hives Prior To Admission Meds: reviewed Review of Systems: Full review of systems compl eted with pertinent positives and negatives noted as per HPI VS: Visit Vitals BP 107/72 Pulse 67 Temp 98.2 F (36.8 C) Resp 18 Ht 5' 11" (1.803 m) Wt 235 lb (106.6 kg) SpO2 98% BMI 32.78 kg/m2 BSA 2.31 m2 Physical Exam: Assessed at 0500 on 06/22/22 General Appearance: Awake, alert, no apparent di stress HEENT: PERRLA, moist mucous membranes Lungs: Lungs clear to auscultation with no wheez ing, rales, or rhonchi Heart: Regular rate and rhythm without murmur, g allop, or rubs. Abdomen: Abdomen soft, non-t nimesh & symmetric. Bowel sounds normal. No masses, organomegaly. No rebound or guarding. Vascular: Strong peripheral pulses in all extrem ities Extremities: full range of motion bilaterally, n o edema Neurologic: Mental status intact Data: Reviewed LING AND SIMULATION ANALYST Associated attestation - Chemo Al MD - 06/22/2022 10:29 AM MODELING AND SIMULATION ANALYST Chart reviewed Patient examined Psych consulted. Will likely be re-evaluated Saturday 06/24 to give some time to see effect of med changes recommended on admission. Nicotine patch ordered Rest of plan per Dr. Morales's note. Chemo Al MD Rn [facility] Section of General Internal Medicine, [facility] [place] [id number] Notes Date/Time Note Provider Source 2022-10-02 [facility] 08:30:52-00:00 Approving, but needs appt for additional refills . System Electronically signed by Vishnu Palmer MD at 02/2023 8:30 AM CDT 2022-08-05 Addended by: VISHNU PALMER on: 08/05/2022 01:56 P M [facility] 09:40:00-00:00 System Modules accepted: Orders Electronically signed by Vishnu Palmer MD at 1:56 PM CDT 2022-06-24 Formatting of this note might be differe nt from the original. Abby Prakash RN [facility] 16:12:00-: Explained discharge instruct ions to patient and (Heladio) at the bedside, gave pt follow up appointment for Mental Health Services as scheduled for July 08, instructed patient to make follow up System appointment with pateint's PCP. Pt and verbalized understanding. Medications were delivered at the bedside by pharmacist Asha. Gave patient Ask My Nurse Phone number. Patient with hernandez in p lace, patient has history of chronic, both pateint and verbalized understanding on how to care for hernandez. Educated patient to come to nearest emergency center if patient reports shortness of brandon ath, fever. Pt left with hus band, paperwork, and medications. Removed peripheral IV line, pt was transported by personal wheelchair. Pt left unit AOX4 in no distress. No needs at this time. LING AND SIMULATION ANALYST 2022-06-24 [facility] 16:12:00-: System Problem: Suicidal Thoughts Goal: Patient Will Not Express Suicidal Thoughts Or Actions Description: Patient will no t experience suicidal thoughts and reduce impulsive behaviors that may result in self-injury. Outcome: Resolved Problem: Hospital Acquired Venous Thromboembolis m (VTE) Goal: Absence of Hospital Acquired VTE (DVT or P E) Description: Patient will no t develop VTE (DVT or PE) during the hospital stay. Outcome: Resolved Problem: Knowledge Deficit Goal: Increase Understanding of Causes and Management of Disease Process and Treatments Description: Patient will be educated with accurate information, demonstrate knowledge and skills regarding the disease process, and the diagnostic and therapeutic plan. Outcome: Resolved Problem: Healing Environment Goal: Provide A Physical Env ironment Affirmed By The Patient To Be Safe And Comfortable Outcome: Resolved Goal: Identify The Patient's Healing Goal Outcome: Resolved Goal: Identify Traditional / Cultural Healing Pr actice (s) Outcome: Resolved Problem: Relationship Based Care Goal: Develop / Initiate The Interdisciplinary P michelle For Discharge Outcome: Resolved Goal: Identify Support Systems Outcome: Resolved Goal: Patient / Family / S.O . Are Supportive And Accepting Of The Established Care Goals Outcome: Resolved Problem: Culturally Responsive Care Goal: Provide Culturally Competent Care Outcome: Resolved Problem: Standards Of Nursing Care Goal: Maintain Standards Of Nursing Care Description: * Verify Care M eets Standards For Assessment And Management Of Patient Status, Medications And Treatment, Safety, And Education. * Care Reviewed Regarding: > Education Of Patient, Family, S.O. > Verify Understanding Of Ca uses, Treatment And Follow-Up Care Related To Disease Process. > Administration And Coordination Of Med ications And Treatments As Prescribed. > Assessment, Evaluation And Communication Of Status As Indicated By: Patient Condition, Treatment And / Or Patient Response. > Comfort Measures As Indica justino By: Patient Subjective And Objective Responses. Outcome: Resolved Problem: Falls / Injury Goal: Absence of fall or injury Description: Refer to the Documentation Flowshee t for Interventions. Outcome: Resolved Problem: Compromised Skin Integrity Goal: Skin integrity is maintained or improved Description: Assess and david tor skin integrity. Identify patients at risk for skin breakdown on admission and per policy. Collaborate with interdisciplinary team and initiate plans and interventions as needed. Outcome: Resolved Goal: Fluid and electrolyte balance are achieved /maintained Description: Assess and david tor vital signs (orthostatic vitals if applicable), fluid intake and output, urine color, labs, skin turgor, mucous membranes, jugular venous distention, edema, circumference of edematous extremities an d abdominal girth, respiratory status, and mental status. Monitor for signs and symptoms of hypovolemia (tachycardia, rapid breathing, decreased urine output, postural hypote nsion, confusion, syncope). Monitor for signs and symptoms of hypervolemia (strong rapid pulse, shortness of breath, difficulty breathing lying down, crackles heard in lung hunt, edema). Collaborate w [facility] interdisciplinary team and initiate plan and interventions as ordered. Outcome: Resolved Goal: Nutritional status is improving Description: Monitor and ass ess patient for malnutrition (ex- brittle hair, bruises, dry skin, pale skin and conjunctiva, muscle wasting, smooth red tongue, and disorientation). Collaborate with interdi sciplinary team and initiate plan and interventions as ordered. Monitor patient's weight and dietary intake as ordered or per policy. Utilize nutrition screening tool and intervene per policy. Determine patient's food preferences and provide high-protein, high-caloric foods as appropriate. Outcome: Resolved Problem: URINARY INCONTIENCE Goal: Perineal skin integrity is maintained or i mproved Outcome: Resolved Problem: Pain - Acute Goal: An Acceptable Level Of Comfort Description: Patient will bravo ve adequate relief of pain, be able to cope with unrelieved pain using pharmacological and non-pharmacological methods and be able to perform desired activities. Outcome: Resolved [facility] 2022-06-24 Formatting of this note is different fro m the original. La Dillon RN [facility] 12:58:36-00:00 Problem: Psychosocial/Initial Assessment/Dischar ge Planning System Intervention: Per H&P : Destinee Nolan, a 42y.o. female, feels better today "mood is at 80%". No SI. She wants to be with her . She feels that she slept a little better and is amenable to further adjustmen ts in her medications. She i s amenable to undergo sleep study as well as follow up with psychiatry. She feels her depression is much better but still has some anxiety. Clinical Nurse Adaptive Physical Education Specialist reviewed chart, met the patient at bedside, introduced self and discussed discharge plan/options; CNCM confirmed patient's identity using two identifiers( name and ); The patient presented alert, oralia ented, maintained good eye contact, engaged in this discharge planning assessment and provided following information: 06/24/22 1250 Charting Type Charting Type Initial Patient Status Current Status Observation Patient Information Source of Information Patient County of Residence [place] Country of Other ([place]) Immigration Status: [place] Citizen Behavior Alert;Oriented Health Care Concerns Change in health care statu s Discharge Planning Assessment Current Residence Apartment (Patient stated she lives wi th her [place], [place] [facility], [facility] [address] [address], [place] [address] and will return to the aforementioned address.) Current Household Composition Spouse / significa nt other Current Support System & Ani ticipated Discharge Support System Immediate family;Significant other Current Home Care Services No Current DME Services Yes Type of DME at Home Wheelchair Current Provider Services No Patient Expects to be Discharged to: Apartment (Patient stated she lives wi th her spouse, Heladio Nolan [facility] address, [address], [facility] [address] and will return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
[2022-12-20] MEDS ORDERED: NA CHLORIDE 0.9% 1,000 ML ONE (16:48)
[2022-12-20] MEDS ORDERED: LORazepam 2 MG/ML VIAL ONE (16:48)
[2022-12-20] MEDS ORDERED: NA CHLORIDE 0.9% 100 ML ONE (16:49)
[2022-12-20] MEDS ORDERED: FOSPHENYTOIN PE 500 MG/10 ML VIAL ONE (16:49)
--- NOTE | 2022-12-20 16:59 | RAD REPORT ---
EXAM DESCRIPTION: CT - Head Brain Wo Cont - 12/20/2022 4:47 pm CLINICAL HISTORY: Seizure COMPARISON: September 2022 TECHNIQUE: Computed axial tomography of the head was obtained. IV contrast was not requested. All CT scans are performed using dose optimization technique as appropriate and may include automated exposure control or mA/KV adjustment according to patient size. FINDINGS: An intracranial bleed is not seen The ventricles are normal in caliber No significant hypodense areas within the brain visualized No extra-axial fluid collection is noted. Fluid within the sinuses/ mastoids is not seen IMPRESSION: No acute intracranial abnormality is seen If patient's symptoms persist MRI of the brain would be recommended
--- NOTE | 2022-12-20 17:11 | RAD REPORT ---
EXAM DESCRIPTION: Amar[facility] Single View12/20/2022 5:01 pm CLINICAL HISTORY: Seizure COMPARISON: September 2022 FINDINGS: The lungs appear clear of acute infiltrate. The heart is normal size IMPRESSION: No acute abnormalities displayed
[2022-12-20 17:16] LABS: Absolute Lymphocytes (CBC) 1.6 K/uL (0.7-4.9); Hematocrit 38.1 % (36.0-45.0); Lymphocytes % 17.9 % (15.3-44.8); MCV 89.3 fL (80-100); MPV 8.2 fL (7.6-11.3); RBC Red Blood Cell Count 4.27 M/uL (3.86-4.86)
[2022-12-20 17:23] LABS: Protime INR 1.07
[2022-12-20 17:40] LABS: ALT/SGPT 11 U/L (13-56); AST/SGOT 13 U/L (15-37); Albumin 2.9 g/dL (3.4-5.0); Alkaline Phosphatase 79 U/L (45-117); BUN Blood Urea Nitrogen 5 mg/dL (7-18); Bicarbonate 26 mEq/L (21-32); Bilirubin Total 0.2 mg/dL (0.2-1.0); Glomerular Filtration Rate 115 ml/min (=/>90); Glucose Level 93 mg/dL (74-106); Potassium 4.1 mEq/L (3.5-5.1); Protein, Total 6.7 g/dL (6.4-8.2); Sodium Level 138 mEq/L (136-145)
[2022-12-20 17:41] LABS: Bilirubin Direct < 0.1 mg/dL (0-0.2); Bilirubin Indirect, Calculated ND mg/dL (0.2-0.8)
[2022-12-20 18:49] LABS: Specific Gravity 1.005 (1.005-1.030)
[2022-12-20 18:56] LABS: Barbiturates NEGATIVE (NEGATIVE); Benzodiazepines NEGATIVE (NEGATIVE); Cocaine NEGATIVE (NEGATIVE); METHAMPHETAM NEGATIVE (NEGATIVE); Methadone NEGATIVE (NEGATIVE); Opiates NEGATIVE (NEGATIVE); Phencyclidine NEGATIVE (NEGATIVE); THC Cannibis NEGATIVE (NEGATIVE)
[2022-12-20 19:02] LABS: Specific Gravity 1.005 (1.005-1.030); Urine Bacteria <20 /HPF (<20); Urine Bilirubin 1+ (Negative); Urine Blood Negative (Negative); Urine Clarity Extremely Turbid (Clear); Urine Color Dark-Yellow (Yellow); Urine Glucose NEGATIVE (Negative); Urine Protein NEGATIVE (Negative); Urine RBC <5 /HPF (None Seen); Urine Urobilinogen 1+ (Normal)
--- NOTE | 2022-12-20 20:52 | ER ---
Nurse's Notes [facility] Name: Naz Boyle Age: 42 yrs Sex: Female : 1980 Arrival Date: 12/20/2022 Time: 16:18 Bed 4 Private MD: Diagnosis: Other seizures Presentation: 12/20 16:26 Chief complaint: EMS states: WITNESSED SZ x4. Coronavirus screen: At this time, the bp client does not indicate any symptoms associated with coronavirus-19. Ebola Screen: No symptoms or risks identified at this time. Initial Sepsis Screen: Does the patient meet any 2 criteria? Mean Arterial Pressure (MAP) < 65. No. Patient's initial sepsis screen is negative. Does the patient have a suspected source of infection? Yes:. Risk Assessment: Do you want to hurt yourself or someone else? Unable to obtain. Onset of symptoms was December 20, 2022. Care prior to arrival: IV initiated. 22 GA, in the right hand, Glucose check: 120. 16:26 Method Of Arrival: EMS: [facility] bp 16:26 Acuity: MIGUEL 3 bp Triage Assessment: 16:28 General: Appears obese, Behavior is unresponsive. Pain: Unable to use pain scale. bp Patient is unresponsive. EENT: No deficits noted. Neuro: Seizure activity reported prior to arrival. Cardiovascular: No deficits noted. Respiratory: No deficits noted. GI: No signs and/or symptoms were reported involving the gastrointestinal system. : Hernandez in place. Derm: No deficits noted. Musculoskeletal: No deficits noted. Historical: - Allergies: 16:28 Prednisone; bp - Home Meds: 16:28 Keppra 1500 mg Oral tablet 2 times per day [Active]; prazosin 1 mg Oral capsule every bp day at bedtime [Active]; trazodone 400 mg Oral tablet at bedtime [Active]; midodrine 2.5 mg Oral tablet 3 times per day [Active]; BuSpar 5 mg Oral three times a day [Active]; Plavix 75 mg Oral tablet daily [Active]; Crestor 20 mg Oral tablet nightly [Active]; gabapentin 300 mg Oral capsule as needed [Active]; Prozac 40 mg Oral capsule once [Active]; levothyroxine 200 mcg capsule [Active]; Hydroxyzine Oral [Active]; rosuvastatin oral [Active]; - PMHx: 16:28 BRADYCARDIA; SVT; Seizure; RLS; RA; PERIPHERAL NEUROPATHY; Migraine; Lupus bp erythematosus; Hypothyroidism; CVA; Hypercholesterolemia; hypotension; - PSHx: 16:28 hysterectomy; Cholecystectomy; Carpal tunnel luis miguel; Appendectomy; bp - Immunization history:: Adult Immunizations up to date. - Social history:: Smoking status: unknown. Screenin:33 [facility] ED Fall Risk Assessment (Adult) History of falling in the last 3 months, bp including since admission No falls in past 3 months (0 pts). Abuse screen: Denies threats or abuse. Denies injuries from another. Nutritional screening: No deficits noted. Tuberculosis screening: No symptoms or risk factors identified. Assessment: 16:33 General: SEE TRIAGE NOTE. bp 18:30 Reassessment: PT INTERMITTENTLY ENGAGING IN RHYTHMIC SHAKING MOTIONS THAT RESOLVE WITH bp NOXIOUS STIMULI. ERP NOTIFIED. 20:19 Reassessment: Pt's family reports pt has had 3 seizures while being at the hospital. Pt jb4 is shaking in bed, upon addressing the pt and touching her shoulder, seizure like activity stops. Pt is now awake and alert. Family reports pt has a stutter with her migraines and seizures. Provider notified of the seizure like activity, no new orders at this time. Vital Signs: 16:26 BP 81 / 45; Pulse 78; Resp 26; Temp 98.3; Pulse Ox 98% ; Weight 104.33 kg; bp 16:35 BP 116 / 74; Pulse 73; Resp 15; Pulse Ox 99% ; bp 18:30 BP 105 / 84; Pulse 65; Resp 25; Pulse Ox 97% ; bp 21:26 BP 122 / 83; Pulse 63; Resp 19; Pulse Ox 99% on R/A; kd3 22:49 BP 99 / 69; Pulse 68; Resp 20; Temp 98.2(TE); Pulse Ox 96% on R/A; kd3 [place] Coma Score: 16:28 Eye Response: none(1). Motor Response: withdraws from pain(4). Verbal Response: bp none(1). Total: 6. ED Course: 16:26 Patient arrived in ED. bp 16:28 Triage completed. bp 16:28 Arm band placed on. bp 16:29 Pramod Sanchez MD is Attending Physician. anneliese 16:33 Pramod Leung PA is PHCP. cp 16:33 Patient has correct armband on for positive identification. Bed in low position. Call bp light in reach. Side rails up X2. Adult w/ patient. Seizure precautions initiated. 16:33 Inserted saline lock: 20 gauge in left forearm, using aseptic technique. Blood bp collected. Maintain EMS IV. Dressing intact. Good blood return noted. Site clean \T\ dry. Gauge \T\ site: 22 GA R HAND. 16:34 Danilo Davis, RN is Primary Nurse. bp 16:49 CT Head Brain wo Cont In Process Unspecified. EDMS 17:02 XRAY Chest (1 view) In Process Unspecified. EDMS 17:15 EKG done, by ED staff. aw1 20:51 Janak Chapin is Hospitalizing Provider. cp 21:14 Troponin High Sensitivity Sent. kd3 21:14 Blood Culture Adult (2) Sent. kd3 21:25 Hernandez cath inserted, using sterile technique, 16 Fr., by oh, balloon inflated, to kd3 gravity drainage. 22:49 No provider procedures requiring assistance completed. Patient admitted, IV remains in kd3 place. 12/21 00:24 Provided Education on: . kd3 Administered Medications: 12/20 16:44 Drug: Ativan IVP 1 mg Route: IVP; Site: left forearm; bp 16:45 Drug: NS 0.9% IV 1000 ml Route: IV; Rate: 1 bolus; Site: left forearm; bp 16:45 Drug: Fosphenytoin IVPB 1 grams Route: IVPB; Site: left forearm; bp 21:17 Drug: Rocephin IV 1 grams Route: IV; Rate: calculated rate; Site: left hand; kd3 Medication: 16:33 VIS not applicable for this client. bp Outcome: 20:51 Decision to Hospitalize by Provider. cp 22:50 Admitted to Med/surg room 401. kd3 22:50 Condition: stable 22:50 Discharge instructions given to patient, Instructed on the need for admit. 12/21 00:24 Patient left the ED. kd3 Signatures: Dispatcher [employer] EDPramod Capellan MD MD cha Page, Corey, PA PA cp Jairo Raya, LIZZY RN jb4 Danilo Davis, RN RN Judith Seymour RN RN kd3 Albina Garner aw1
--- NOTE | 2022-12-20 20:52 | EDPHYS ---
Physician Documentation [facility] Name: Naz Boyle Age: 42 yrs Sex: Female : 1980 Arrival Date: 12/20/2022 Time: 16:18 Bed 4 Private MD: Pramod Verdugo HPI: 12/20 16:37 This 42 yrs old Female presents to ER via EMS with complaints of Seizure. cp 16:37 The patient presents with a history of multiple seizures, a total of 6, the episode(s) cp was witnessed, by EMS personnel, by family. 16:37 Character of seizure(s): Loss of consciousness: the patient experienced loss of cp consciousness, Motor activity: generalized, shaking all over, Incontinence: none. Seizure onset: this morning. Seizure Hx: Seizure medications: Keppra, Vimpat. Associated injury: The patient did not suffer any apparent associated injury. Current symptoms: decreased level of consciousness, is arousable but tired. 16:37 HX provided by EMS. cp Historical: - Allergies: 16:28 Prednisone; bp - Home Meds: 16:28 Keppra 1500 mg Oral tablet 2 times per day [Active]; prazosin 1 mg Oral capsule every bp day at bedtime [Active]; trazodone 400 mg Oral tablet at bedtime [Active]; midodrine 2.5 mg Oral tablet 3 times per day [Active]; BuSpar 5 mg Oral three times a day [Active]; Plavix 75 mg Oral tablet daily [Active]; Crestor 20 mg Oral tablet nightly [Active]; gabapentin 300 mg Oral capsule as needed [Active]; Prozac 40 mg Oral capsule once [Active]; levothyroxine 200 mcg capsule [Active]; Hydroxyzine Oral [Active]; rosuvastatin oral [Active]; - PMHx: 16:28 BRADYCARDIA; SVT; Seizure; RLS; RA; PERIPHERAL NEUROPATHY; Migraine; Lupus bp erythematosus; Hypothyroidism; CVA; Hypercholesterolemia; hypotension; - PSHx: 16:28 hysterectomy; Cholecystectomy; Carpal tunnel luis miguel; Appendectomy; bp - Immunization history:: Adult Immunizations up to date. - Social history:: Smoking status: unknown. ROS: 16:40 Neuro: Positive for altered mental status, history of seizures. cp 16:40 Constitutional: Negative for fever. cp 16:40 Cardiovascular: Negative for chest pain, palpitations. cp 16:40 Respiratory: Negative for cough, shortness of breath, wheezing. cp 16:40 Abdomen/GI: Negative for abdominal pain, nausea, vomiting, and diarrhea. 16:40 All other systems are negative. cp Exam: 16:45 Constitutional: The patient appears in no acute distress, non-diaphoretic, non-toxic, cp well developed, well nourished, obese. 16:45 Head/Face: Normocephalic, atraumatic. cp 16:45 Eyes: Periorbital structures: appear normal, Pupils: equal, round, and reactive to light and accomodation, Conjunctiva: normal, no exudate, no injection, Sclera: no appreciated abnormality, Lids and lashes: appear normal, bilaterally. 16:45 ENT: External ear(s): are unremarkable, Ear canal(s): are normal, clear, TM's: dullness, bilaterally, Nose: is normal, Mouth: Lips: dry, Oral mucosa: pink and intact, moist, Posterior pharynx: Airway: no evidence of obstruction, patent. 16:45 Neck: C-spine: vertebral tenderness, is not appreciated, crepitus, is not appreciated. 16:45 Chest/axilla: Inspection: normal, Palpation: is normal, no crepitus, no tenderness. 16:45 Cardiovascular: Rate: normal, Rhythm: regular. 16:45 Respiratory: the patient does not display signs of respiratory distress, Respirations: cp normal, no use of accessory muscles, no retractions, labored breathing, is not present, Breath sounds: are clear throughout, no decreased breath sounds, no stridor, no wheezing. 16:45 Abdomen/GI: Inspection: abdomen appears normal, Bowel sounds: active, all quadrants, Palpation: abdomen is soft and non-tender, in all quadrants. 16:45 Musculoskeletal/extremity: Exam is negative for deformity, injury. 16:45 Neuro: Orientation: unable to test, the patient is post-ictal. 17:18 ECG was reviewed by the Attending Physician. cp Vital Signs: 16:26 BP 81 / 45; Pulse 78; Resp 26; Temp 98.3; Pulse Ox 98% ; Weight 104.33 kg; bp 16:35 BP 116 / 74; Pulse 73; Resp 15; Pulse Ox 99% ; bp 18:30 BP 105 / 84; Pulse 65; Resp 25; Pulse Ox 97% ; bp 21:26 BP 122 / 83; Pulse 63; Resp 19; Pulse Ox 99% on R/A; kd3 22:49 BP 99 / 69; Pulse 68; Resp 20; Temp 98.2(TE); Pulse Ox 96% on R/A; kd3 [place] Coma Score: 16:28 Eye Response: none(1). Motor Response: withdraws from pain(4). Verbal Response: bp none(1). Total: 6. MDM: 16:29 Patient medically screened. [facility] 20:30 Data reviewed: vital signs, nurses notes, lab test result(s), EKG, radiologic studies, CT scan, plain films. 20:30 I considered the following discharge prescriptions or medication management in the emergency department Medications were administered in the Emergency Department. See MAR. Historians other than the Patient: Spouse/Significant Other: provides HPI. Care significantly affected by the following Social Determinants of Health: Poor access to healthcare and/or lack of insurance. Response to treatment: the patient's symptoms have mildly improved after treatment. 12/20 16:36 Order name: Acetaminophen; Complete Time: 19:01 12/20 16:36 Order name: Basic Metabolic Panel; Complete Time: 19:01 12/20 19:01 Interpretation: Normal except: BUN 5; CA 8.1. 12/20 16:36 Order name: CBC with Diff; Complete Time: 17:32 12/20 19:39 Interpretation: Normal except: NANCY% 76.9. 12/20 16:36 Order name: ETOH Level; Complete Time: 19:01 12/20 19:02 Interpretation: Reviewed. 12/20 16:36 Order name: Hepatic Function; Complete Time: 19:01 12/20 19:01 Interpretation: Normal except: AST 13; ALT 11; ALB 2.9; GLOB 3.8; A/G 0.8. 12/20 16:36 Order name: PT-INR; Complete Time: 17:32 12/20 16:36 Order name: Test, Urine; Complete Time: 19:01 12/20 16:36 Order name: Ptt, Activated; Complete Time: 17:32 12/20 16:36 Order name: Salicylate; Complete Time: 19:01 12/20 16:36 Order name: Urinalysis w/ reflexes; Complete Time: 19:02 12/20 19:03 Interpretation: Normal except: [facility] Extremely Turbid; UBILI 1+; UUROB 1+; UNIT 2+; cp UESTR 75; BYST Few. 12/20 16:36 Order name: Urine Drug Screen; Complete Time: 19:01 12/20 19:02 Interpretation: Reviewed. 12/20 16:36 Order name: Lactate w/ 2H reflex if indic.; Complete Time: 17:32 12/20 16:36 Order name: Blood Culture Adult (2) 12/20 16:36 Order name: COVID-19 SARS RT PCR; Complete Time: 19:01 12/20 20:25 Order name: Troponin High Sensitivity 12/20 22:05 Order name: Urinalysis w/ reflexes [facility] 12/20 22:05 Order name: CBC with Automated Diff [facility] 12/20 22:05 Order name: CBC with Automated Diff [facility] 12/20 22:05 Order name: Comprehensive Metabolic Panel [facility] 12/20 22:05 Order name: Comprehensive Metabolic Panel [facility] 12/20 22:05 Order name: Magnesium [facility] 12/20 22:05 Order name: Magnesium [facility] 12/20 16:36 Order name: CT Head Brain wo Cont; Complete Time: 17:32 12/20 16:36 Order name: XRAY Chest (1 view); Complete Time: 17:32 12/20 16:36 Order name: EKG; Complete Time: 16:37 12/20 21:59 Order name: CONS Physician Consult [facility] 12/20 22:05 Order name: Regular [facility] 12/20 16:36 Order name: EKG - Nurse/Tech; Complete Time: 17:14 12/20 16:36 Order name: IV Saline Lock; Complete Time: 16:36 12/20 16:36 Order name: Labs collected and sent; Complete Time: 16:36 12/20 16:36 Order name: Suicide Screening ([place]); Complete Time: 16:36 cp EC:18 Rate is 64 beats/min. Rhythm is regular. MA interval is normal. QRS interval is normal. cp QT interval is normal. T waves are Inverted in lead aVR. Interpreted by me. Reviewed by me. Administered Medications: 16:44 Drug: Ativan IVP 1 mg Route: IVP; Site: left forearm; bp 16:45 Drug: NS 0.9% IV 1000 ml Route: IV; Rate: 1 bolus; Site: left forearm; bp 16:45 Drug: Fosphenytoin IVPB 1 grams Route: IVPB; Site: left forearm; bp 21:17 Drug: Rocephin IV 1 grams Route: IV; Rate: calculated rate; Site: left hand; kd3 Disposition Summary: 12/20/22 20:51 Hospitalization Ordered Hospitalization Status: Observation cp Provider: Janak Chapin cp Location: Telemetry/MedSurg (Inpatient) cp Condition: Stable cp Problem: an ongoing problem cp Symptoms: have improved cp Bed/Room Type: Standard cp Room Assignment: 401(12/20/22 22:02) vc1 Diagnosis - Other seizures cp Forms: - Medication Reconciliation Form cp - SBAR form cp Signatures: Dispatcher [employer] EDMS Pramod Sanchez MD MD cha Page, Corey, PA PA cp Danilo Davis RN RN Judith Seymour RN RN kd3 Ladonna Soria RN RN vc1 Corrections: (The following items were deleted from the chart) 19:03 19:03 Normal except: [facility] Extremely Turbid. cp cp 22:02 20:51 cp vc1
[2022-12-20] MEDS ORDERED: CEFTRIAXONE 1000 MG/VIAL ONE (21:16)
--- NOTE | 2022-12-20 21:45 | P.HP ---
Certification for Inpatient Patient admitted to: Observation With expected LOS: <2 Midnights Patient will require the following post-hospital care: None Practitioner: I am a practitioner with admitting privileges, knowledge of patient current condition, hospital course, and medical plan of care. Services: Services provided to patient in accordance with Admission requirements found in Title 42 Section 412.3 of the Code of Federal Regulations Patient History Date of Service: 12/20/22 Reason for admission: Seizure History of Present Illness: 42-year-old female with past medical history of bradycardia, SVT, rheumatoid arthritis, migraine, lupus, hypothyroidism, CVA, hyperlipidemia, hypertension, anxiety depression, lupus seizure disorders presents emergency room x4 seizures today. is primary historian due to postictal. She reports she has not been able to afford her medications. Seizures were witnessed by family. happend prior to arrival, she reports last seeing neurologist Dr. Meena Morton 5 years ago. She reports she gets medications periodically when she goes to the emergency room. She is often out of her medication. She reports seizures are: Controlled when she takes her meds. She reports taking Keppra 1500 mg twice daily, prazosin 1 mg at bedtime. Laboratory evaluation CBC is unremarkable, chemistry mild hypoalbumin, urinalysis 2+ nitrites, 1+ bilirubin, 75 leukoesterase, few yeast, radiology evaluation CT of the head no acute intracranial abnormality noted, recommend MRI if symptoms symptoms persist, chest x-ray no acute abnormalities Allergies No Known Allergies Allergy (Verified 05/05/21 14:48) Home Medications: Midodrine HCl 2.5 mg PO TID 01/10/20 Trazodone [Desyrel*] 400 mg PO BEDTIME 01/11/20 Aspirin [Aspirin EC 81 MG] 81 mg PO DAILY #30 tablet. 01/12/20 Hydroxychloroquine [Plaquenil*] 200 mg PO DAILY 05/01/21 Folic Acid 1 mg PO DAILY #90 tablet 05/04/21 Clopidogrel Bisulfate [Plavix*] 75 mg PO DAILY #30 tablet 05/18/21 Gabapentin 300 mg PO DAILY PRN 11/07/21 Rosuvastatin [Crestor*] 10 mg PO BEDTIME 11/07/21 Hydrocodone 7.5/APAP 325 [Spangle 7.5/325 mg*] 1 tab PO Q6H PRN #30 tab 03/16/22 Lacosamide [Vimpat*] 50 mg PO BID #60 tablet 03/16/22 Buspirone HCl [Buspar*] 5 mg PO TID 08/26/22 Fluoxetine HCl [Prozac] 40 mg PO DAILY 08/26/22 Levetiracetam [Keppra] 1,500 mg PO BID 08/26/22 Linaclotide [Linzess] 145 mcg PO DAILYPRN PRN 08/26/22 Prazosin HCl 1 mg PO BEDTIME 08/26/22 oxyBUTYnin chloride [Ditropan*] 10 mg PO BID 08/26/22 Hydrocortisone [Cortef*] 10 mg PO BID #60 tab 09/01/22 Levothyroxine Sodium [Synthroid] 200 mcg PO DAILY #30 tab 09/01/22 levoFLOXacin [Levaquin] 750 mg PO DAILY #5 tab 09/01/22 - Past Medical/Surgical History Diabetic: No -: Seizure Disorder -: hypothyroidism -: hypotension -: lupus -: Rheumatoid arthritis -: Restless leg syndrome -: Bradycardia -: CVA -: Appendectomy -: hysterectomy -: -: Carpal tunnel surgery Psychosocial/ Personal History: patient is disabled, lives at home with her - Family History Mother -: Heart disease, Diabetes Brother -: Heart disease, Diabetes, Seizures - Social History Alcohol use: No CD- Drugs: No Caffeine use: Yes Review of Systems 10-point ROS is otherwise unremarkable Physical Examination - Physical Exam General: Alert, In no apparent distress, Oriented x2, Other (Postictal) HEENT: Atraumatic, Normocephalic Neck: Supple, 2+ carotid pulse no bruit Respiratory: Clear to auscultation bilaterally, Normal air movement Cardiovascular: No edema, Regular rate/rhythm Gastrointestinal: Normal bowel sounds, Soft and benign Musculoskeletal: No clubbing, No swelling Integumentary: No rashes, No breakdown Neurological: Normal strength at 5/5 x4 extr, Other (Garbled speech, postictal) - Studies Laboratory Data (last 24 hrs) 12/20/22 12/20/22 12/20/22 17:00 17:00 17:00 WBC 9.10 Hgb 12.4 Hct 38.1 Plt Count 213 PT 11.8 INR 1.07 APTT 33.0 Sodium 138 Potassium 4.1 BUN 5 L Creatinine 0.58 Glucose 93 Total Bilirubin 0.2 AST 13 L ALT 11 L Alkaline Phosphatase 79 Assessment and Plan - Plan Assessment and plan seizure disorder Acute cystitis medications noncompliance Essential hypertension Hyperlipidemia Lupus Anxiety/depression Hypothyroidism DVT prophylaxis Assessment and plan seizure disorder CT of the head no acute intracranial abnormality noted, recommend MRI if symptoms symptoms persist, chest x-ray no acute abnormalities Keppra loading dose, as needed Ativan for seizures Seizure precautions, Neurology consult Acute cystitis IV ceftriaxone, UA, cultures Essential hypertension Hyperlipidemia Lupus Anxiety/depression Hypothyroidism Resume appropriate home medications Diet advance as tolerated Full code Lovenox Plan to discharge in: 24 Hours - Advance Directives Does patient have a Living Will: No Does patient have a Durable POA for Healthcare: No - Code Status/Comfort Care Code Status: Full Code Physician Review: Patient Assessed, Agree with Above Assessment and Plan Time Spent Managing Pts Care (In Minutes): 50
[2022-12-20] MEDS ORDERED: ACETAMINOPHEN 500 MG TAB PO PRN (22:03)
[2022-12-20] MEDS ORDERED: ONDANSETRON 4 MG/2 ML VIAL IV PRN (22:03)
[2022-12-20] MEDS ORDERED: LEVETIRACETAM 1500 MG PO SCH (22:05)
[2022-12-20] MEDS ORDERED: LEVETIRACETAM IV ONE (22:10)
[2022-12-20] MEDS ORDERED: NA CHLORIDE 0.9% IV ONE (22:10)
[2022-12-21 00:35] VITALS: BMI 29.9
[2022-12-21 01:06] VITALS: O2SAT 96
[2022-12-21 04:18] LABS: Absolute Lymphocytes (CBC) 2.4 K/uL (0.7-4.9); Hematocrit 33.7 % (36.0-45.0); Lymphocytes % 31.1 % (15.3-44.8); MCV 89.8 fL (80-100); MPV 8.3 fL (7.6-11.3); RBC Red Blood Cell Count 3.75 M/uL (3.86-4.86)
[2022-12-21 04:36] LABS: AST/SGOT 8 U/L (15-37); Albumin 2.5 g/dL (3.4-5.0); Alkaline Phosphatase 70 U/L (45-117); BUN Blood Urea Nitrogen 4 mg/dL (7-18); Bicarbonate 28 mEq/L (21-32); Bilirubin Total 0.2 mg/dL (0.2-1.0); Glomerular Filtration Rate 116 ml/min (=/>90); Glucose Level 88 mg/dL (74-106); Potassium 3.9 mEq/L (3.5-5.1); Protein, Total 6.2 g/dL (6.4-8.2); Sodium Level 141 mEq/L (136-145)
[2022-12-21 04:39] LABS: ALT/SGPT < 10 U/L (13-56)
[2022-12-21] MEDS ORDERED: levETIRAcetam 1,500 MG in NA CHLORIDE 0.9% 100 ML IV ONE (07:45)
[2022-12-21] MEDS ORDERED: POTASSIUM CL SA 10 MEQ TAB PO ONE (09:00)
[2022-12-21] MEDS ORDERED: HOME MED 1 EA UNK (Levetiracetam [Keppra] 1,000 MG Tablet) PO SCH (09:00)
[2022-12-21] MEDS: ENOXAPARIN 40 MG/0.4 ML SQ SCH (09:00)
[2022-12-21] MEDS: CEFTRIAXONE 1,000 MG in NA CHLORIDE 0.9% 50 ML IVPB SCH (09:00)
--- NOTE | 2022-12-21 13:11 | P.PN ---
Subjective Date of Service: 12/21/22 Chief Complaint: Seizure Patient had another episode of seizure this morning. She was not postictal state during my examination. Physical Examination - Vital Signs Temperature: 98.5 F Blood Pressure: 110/81 Pulse: 69 Respirations: 16 Pulse Ox (%): 97 - Studies Laboratory Data (last 24 hrs) 12/20/22 12/20/22 12/20/22 17:00 17:00 17:00 WBC 9.10 Hgb 12.4 Hct 38.1 Plt Count 213 PT 11.8 INR 1.07 APTT 33.0 Sodium 138 Potassium 4.1 BUN 5 L Creatinine 0.58 Glucose 93 Total Bilirubin 0.2 AST 13 L ALT 11 L Alkaline Phosphatase 79 Microbiology Data (last 24 hrs): 12/20/22 21:11 Blood - Blood Anaerobic Blood Culture - Final Assessment And Plan - Plan Physical Exam General: Somnolent. NAD. HEENT: Atraumatic, Normocephalic Neck: Supple, 2+ carotid pulse no bruit Respiratory: Clear to auscultation bilaterally, Normal air movement Cardiovascular: No edema, Regular rate/rhythm Gastrointestinal: Normal bowel sounds, Soft and benign Integumentary: No rashes, No breakdown Neurological: No focal motor deficit, somnolent. Diagnosis seizure disorder Acute cystitis medications noncompliance Essential hypertension Hyperlipidemia Lupus Anxiety/depression Hypothyroidism Plan: seizure disorder Status post IV Keppra loading dose. Resume home dose Keppra and Vimpat. As needed Ativan for seizures Seizure precautions Neurology consulted Acute cystitis IV ceftriaxone. Follow urine culture. Essential hypertension Hyperlipidemia Lupus Anxiety/depression Hypothyroidism Resume home medications Full code DVT prophylaxis: Lovenox
[2022-12-21] MEDS: LACOSAMIDE 50 MG TABLET PO SCH ×2 (13:55→20:29)
[2022-12-21] MEDS: LORazepam 2 MG/ML VIAL IV PRN (13:58)
[2022-12-21] MEDS: VALPROATE SODIUM INJ 500 MG in NA CHLORIDE 0.9% 100 ML IV SCH ×3 (16:12→23:57)
[2022-12-21] MEDS: levETIRAcetam 500 MG TAB PO SCH (20:29)
[2022-12-22 03:28] LABS: Potassium 3.8 mEq/L (3.5-5.1)
[2022-12-22] MEDS: levETIRAcetam 500 MG TAB PO SCH (07:57)
[2022-12-22] MEDS: LACOSAMIDE 50 MG TABLET PO SCH ×2 (07:57→20:22)
[2022-12-22] MEDS: CEFTRIAXONE 1,000 MG in NA CHLORIDE 0.9% 50 ML IVPB SCH (07:58)
[2022-12-22] MEDS: ENOXAPARIN 40 MG/0.4 ML SQ SCH (07:58)
[2022-12-22] MEDS ORDERED: POTASSIUM CL SA 10 MEQ TAB PO ONE (09:00)
[2022-12-22] MEDS: VALPROATE SODIUM INJ 500 MG in NA CHLORIDE 0.9% 100 ML IV SCH ×2 (09:20→16:14)
--- NOTE | 2022-12-22 12:28 | P.PN ---
Subjective Date of Service: 12/22/22 Chief Complaint: Seizure Spouse states patient had 1 episode of seizure this morning. She is awake and alert and interactive today. She has been tolerating diet. Physical Examination - Vital Signs Temperature: 96.9 F Blood Pressure: 120/79 Pulse: 75 Respirations: 18 Pulse Ox (%): 93 - Studies Microbiology Data (last 24 hrs): 12/20/22 21:11 Blood - Blood Anaerobic Blood Culture - Final Assessment And Plan - Plan Physical Exam General: Somnolent. NAD. HEENT: Atraumatic, Normocephalic Neck: Supple, 2+ carotid pulse no bruit Respiratory: Clear to auscultation bilaterally, Normal air movement Cardiovascular: No edema, Regular rate/rhythm Gastrointestinal: Normal bowel sounds, Soft and benign Integumentary: No rashes, No breakdown Neurological: No focal motor deficit, somnolent. Diagnosis seizure disorder Acute cystitis medications noncompliance Essential hypertension Hyperlipidemia Lupus Anxiety/depression Hypothyroidism Plan: seizure disorder Status post IV Keppra loading dose. Continue home dose Keppra and Vimpat. IV Depakote 500 mg twice daily added per neurology recommendation. As needed Ativan for seizures Seizure precautions Neurology consulted Acute cystitis Possible UTI. Urine not cultured Continue IV ceftriaxone for now. Essential hypertension Hyperlipidemia Lupus Anxiety/depression Hypothyroidism Continue home medications Full code DVT prophylaxis: Lovenox
[2022-12-22] MEDS ORDERED: HYDROXYCHLOROQUINE 200MG TAB PO SCH (13:00)
[2022-12-22] MEDS ORDERED: CLOPIDOGREL 75 MG TABLET PO SCH (13:00)
[2022-12-22] MEDS ORDERED: GABAPENTIN 300 MG CAP PO PRN (13:00)
[2022-12-22] MEDS ORDERED: ASPIRIN EC 81 MG TAB PO SCH (13:00)
[2022-12-22] MEDS: ACETAMIN/CAFFEINE/BUTALB TAB PO PRN ×2 (13:08→20:22)
[2022-12-22] MEDS: BUSPIRONE HCL 5 MG TABLET PO SCH ×2 (13:08→20:22)
--- NOTE | 2022-12-22 13:15 | EKG ---
Test Date: 2022-12-20 Test Time: 17:10:41 [place] Hand: RUTH MEASUREMENT RESULTS: Intervals: Rate: 64 HI: 124 QRSD: 76 QT: 438 QTc: 451 [place]: P: 54 HI: 124 QRS: 87 T: 11 INTERPRETIVE STATEMENTS: Normal sinus rhythm Normal ECG Compared to ECG 09/29/2022 15:59:36 Sinus bradycardia no longer present Electronically Signed On 12-22-22 13:12:16 CDT by Severiano Cohen
[2022-12-22] MEDS ORDERED: NA CHLORIDE 0.9% 1,000 ML IV SCH (16:00)
[2022-12-22] MEDS: LORazepam 2 MG/ML VIAL IV PRN (16:40)
[2022-12-22] MEDS ORDERED: levETIRAcetam 500 MG TAB PO SCH (21:00)
[2022-12-22] MEDS ORDERED: PRAZOSIN HCL 1 MG CAP PO SCH (21:00)
[2022-12-22] MEDS ORDERED: ROSUVASTATIN 10 MG TAB PO SCH (21:00)
[2022-12-22 21:18] VITALS: BP 113/77; TEMP 98.2
[2022-12-23] MEDS ORDERED: FLUOXETINE 20 MG CAP PO SCH (09:00)
--- NOTE | 2022-12-23 17:22 | P.DS ---
Admission Date: 12/22/22 Discharge Date: 12/23/22 Disposition: TRANSFER TO [facility] Reason for Admission: Seizure Brief History of Present Illness: 42-year-old female with past medical history of bradycardia, SVT, rheumatoid arthritis, migraine, lupus, hypothyroidism, CVA, hyperlipidemia, hypertension, anxiety depression, lupus seizure disorders presents emergency room due to multiple seizure episodes. was primary historian due to patient being in postictal state. She reported she has not been able to afford her medications. Seizures were witnessed by family. She reported last seeing neurologist Dr. Meena Morton 5 years ago. She reports she gets medications periodically when she goes to the emergency room. She is often out of her medication. She reported her seizures are: Controlled when she takes her meds. She reports taking Keppra 1500 mg twice daily, prazosin 1 mg at bedtime. Laboratory evaluation CBC is unremarkable, chemistry mild hypoalbumin, urinalysis 2+ nitrites, 1+ bilirubin, 75 leukoesterase, few yeast, radiology eduardo luation CT of the head no acute intracranial abnormality noted, recommend MRI if symptoms symptoms persist, chest x-ray no acute abnormalities. Patient hospitalized for further management. Hospital Course: Diagnosis seizure disorder Acute cystitis medications noncompliance Essential hypertension Hyperlipidemia Lupus Anxiety/depression Hypothyroidism Patient admitted to the medical floor and the following medical problems addressed: seizure disorder Status post IV Keppra loading dose. ContinueD home dose Keppra 1500 mg twice daily and Vimpat 50 mg twice daily She was also placed on IV Depakote 500 mg t every 8 hours per neurology recommendation. She also needed Ativan PRN for seizures Patient continues to have intermittent seizureS. Case discussed with neurology Dr. Morton who recommended to transfer patient to a tertiary center for EEG and further treatment if patient continues to experience seizures. No EEG available in this hospital. Patient accepted for transfer to [facility]. Vitals are clinically stable for transfer. Acute cystitis Possible UTI. Urine not cultured Patient treated with IV ceftriaxone. Essential hypertension Hyperlipidemia Lupus Anxiety/depression Hypothyroidism ContinueD home medications Vital Signs/Physical Exam: Temp Pulse Resp BP Pulse Ox 98.2 F 76 18 113/77 98 12/22/22 20:00 12/22/22 20:00 12/22/22 20:00 12/22/22 20:00 12/22/22 20:00 General: In no apparent distress HEENT: Mucous membr. moist/pink Neck: JVD not distended Respiratory: Clear to auscultation bilaterally, Normal air movement Cardiovascular: No edema, Regular rate/rhythm, Normal S1 S2 Gastrointestinal: Normal bowel sounds, Soft and benign, Non-distended Musculoskeletal: No swelling Integumentary: No rashes Neurological: Normal strength at 5/5 x4 extr Laboratory Data at Discharge: WBC 7.70 thou/uL (4.3-10.9) 12/21/22 03:27 Hgb 11.0 g/dL (12.0-15.0) L D 12/21/22 03:27 Hct 33.7 % (36.0-45.0) L 12/21/22 03:27 Plt Count 197 thou/uL (152-406) 12/21/22 03:27 PT 11.8 SECONDS (9.5-12.5) 12/20/22 17:00 INR 1.07 12/20/22 17:00 APTT 33.0 SECONDS (24.3-36.9) 12/20/22 17:00 Sodium 137 mEq/L (136-145) 12/22/22 02:25 Potassium 3.8 mEq/L (3.5-5.1) 12/22/22 02:25 BUN 4 mg/dL (7-18) L 12/22/22 02:25 Creatinine 0.60 mg/dL (0.55-1.02) 12/22/22 02:25 Glucose 93 mg/dL (74-106) 12/22/22 02:25 Magnesium 2.0 mg/dL (1.6-2.4) 12/21/22 03:27 Total Bilirubin 0.2 mg/dL (0.2-1.0) 12/21/22 03:27 AST 8 U/L (15-37) L 12/21/22 03:27 ALT < 10 U/L (13-56) L 12/21/22 03:27 Alkaline Phosphatase 70 U/L (45-117) 12/21/22 03:27 Home Medications: Midodrine HCl 2.5 mg PO TID 01/10/20 Aspirin [Aspirin EC 81 MG] 81 mg PO DAILY #30 tablet. 01/12/20 Hydroxychloroquine [Plaquenil*] 200 mg PO DAILY 05/01/21 Clopidogrel Bisulfate [Plavix*] 75 mg PO DAILY #30 tablet 05/18/21 Gabapentin 300 mg PO DAILY PRN 11/07/21 Rosuvastatin [Crestor*] 10 mg PO BEDTIME 11/07/21 Lacosamide [Vimpat*] 50 mg PO BID #60 tablet 03/16/22 Buspirone HCl [Buspar*] 10 mg PO TID 08/26/22 Fluoxetine HCl [Prozac] 60 mg PO DAILY 08/26/22 Levetiracetam [Keppra] 1,500 mg PO BID 08/26/22 Prazosin HCl 2 mg PO BEDTIME 08/26/22 Time spent managing pt's care (in minutes): 36
== END 2022-12-22 23:27 | disposition short-term general hospital (02) | DRG 101 ==
LOC: ER 16:18 → 4TH 21:55 → OBSVTOIN 12-22 16:03
PROVIDERS: ADMIT Internal Medicine; ATTEND Internal Medicine
DX: G40.909 Epilepsy, unspecified, not intractable, without status epilepticus (principal); N30.00 Acute cystitis without hematuria; G25.81 Restless legs syndrome; M32.9 Systemic lupus erythematosus, unspecified; E03.9 Hypothyroidism, unspecified; F41.9 Anxiety disorder, unspecified; F32.A Depression, unspecified; E78.00 Pure hypercholesterolemia, unspecified; T42.76XA Underdosing of unspecified antiepileptic and sedative-hypnotic drugs, initial encounter; Z79.52 Long term (current) use of systemic steroids; Z79.02 Long term (current) use of antithrombotics/antiplatelets; Z86.73 Personal history of transient ischemic attack (TIA), and cerebral infarction without residual deficits; Z90.49 Acquired absence of other specified parts of digestive tract; Z79.82 Long term (current) use of aspirin; Z79.890 Hormone replacement therapy; Z91.120 Patient's intentional underdosing of medication regimen due to financial hardship; Z91.141 Patient's other noncompliance with medication regimen due to financial hardship; Z90.710 Acquired absence of both cervix and uterus; Z79.899 Other long term (current) drug therapy; Z20.822 Contact with and (suspected) exposure to COVID-19
CPT/HCPCS: 36415; 51702; 70450; 71045; 80048; 80053; 80076; 80143; 80177; 80179; 80307; 81001; 81025; 82077; 82550; 83605; 83735; 84484; 85025; 85610; 85730; 87040; 87635; 93005; 99285; J0696; J1650; J1953; J7030; Q2009

== ENCOUNTER 2022-12-31 18:13 | Emergency (ER) | payer SELFPAY ==
[~2022-12-31 18:13] MED LIST: NALOXONE HCL 2 MG/2 ML VIAL ONE
--- OUTSIDE RECORDS SUMMARY | 2022-12-31 18:26 | XMS REPORT | Continuity of Care Document ---
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 mg Suresh [...] dose on 07/21/22 at 1700, STAT lacosamide 0 2022- No 50mg Q.5D 50 mg Harri s (VIMPAT) 06-22 (0.469 Health tablet 50 12:15: 18:13 mg/kg), mg 00 :13 Oral, 2 TIMES DAILY, 60 doses, First dose on 06/22/22 at 1215, Last dose on 07/21/22 at 1700, STAT levETIRAcet 2022-2022- No 1500mg Q.5D 1,500 mg Suresh am [...] PRN, Starting on 06/22/22 at 1209, Until Fri06/24/22 at 1813, Mild Pain (1-3) - 1st Line, Headache, STAT acetaminoph 202-0 202- No 650mg 650 mg Bravo rris en 06-22 (6.1 Health (TYLENOL) 12:09: 18:13 mg/kg), tablet 650 19 :13 Oral, mg EVERY 8 HOURS PRN, Starting on 06/22/22 at 1209, Until Fri06/24/22 at 1813, Mild Pain (1-3) - 1st Line, Headache, STAT acetaminoph 2022-0 2022- No 650mg 650 mg Bravo rris en 06-22 (6.1 Health (TYLENOL) 12:09: 18:13 mg/kg), tablet 650 19 :13 Oral, mg EVERY 8 HOURS PRN, Starting on 06/22/22 at 1209, Until Fri06/24/22 at 1813, Mild Pain (1-3) - 1st Line, Headache, STAT acetaminoph 2022-0 2022- No 650mg 650 mg [place] r[place] en 06-22 (6.1 Health (TYLENOL) 12:09: 18:13 mg/kg), tablet 650 19 :13 Oral, mg EVERY 8 HOURS PRN, Starting on 06/22/22 at 1209, Until Fri06/24/22 at 1813, Mild Pain (1-3) - 1st Line, Headache, STAT acetaminoph 2022-0 2022- No 650mg 650 mg B[place] r[place] en 06-22 (6.1 Health (TYLENOL) 12:09: 18:13 mg/kg), tablet 650 19 :13 Oral, mg EVERY 8 HOURS PRN, Starting on 06/22/22 at 1209, Until Fri06/24/22 at 1813, Mild Pain (1-3) - 1st Line, Headache, STAT acetaminoph 2022-0 2022- No 650mg 650 mg Bravo rris [...] (1-3) - 1st Line, Headache, STAT acetaminoph No 650mg 650 mg B[place] rris en 06-22 (6.1 Health (TYLENOL) 12:09: 18:13 mg/kg), tablet 650 19 :13 Oral, mg EVERY 8 HOURS PRN, Starting on 06/22/22 at 1209, Until 06/24/22 at 1813, Mild Pain (1-3) - 1st Line, Headache, STAT nicotine 2022-2022- No 1{patch QD 1 Patch, H arris (NICODERM 06-22 } [facility] CQ) 14 09:00: 18:13 l, DAILY, mg/24 [...] H arris (NICODERM 06-22 } [facility] C[facility]) 14 09:00: 18:13 l, DAILY, mg/24 [...] H arris (NICODERM 06-22 } [facility] C[facility]) 14 09:00: 18:13 l, DAILY, mg/24 [...] H arris (NICODERM 06-22 } [facility]) 14 09:00: 18:13 l, DAILY, mg/24 [...] H arris (NICODERM 06-22 } [facility]) 14 09:00: 18:13 l, DAILY, mg/24 [...] STAT escitalopra No 20mg QD 20 mg Victro M is m oxalate 06-22 (0.188 Health [...] H arris (NICODERM 06-22 } [facility] CQ) 14 09:00: 18:13 l, DAILY, mg/24 [...] H arris (NICODERM 06-22 } [facility] C[facility]) 14 09:00: 18:13 l, DAILY, mg/24 [...] H arris (NICODERM 06-22 } [facility] CQ) 14 09:00: 18:13 l, DAILY, mg/24 [...] H arris (NICODERM 06-22 } [facility]) 14 09:00: 18:13 l, DAILY, mg/24 [...] H arris (NICODERM 06-22 } [facility]) 14 09:00: 18:13 l, DAILY, mg/24 [...] 0900, Until Discontinu ed, STAT TAKE ONE No (1) 1-16 TABLET(S) 00:00: [...] 15 Minutes, 100 mL iopamidol 2022- No [id number] 75mL 75 mL, Univers (ISOVUE 05-31-06 Intravenou ity o f 370-500 mL) 23:00: 21:51 s, ONCE, 1 [place] injection 00 :00 dose, On Medica l 75 mL Fri05/31/22 Branch at 1700, Routine NaCl 0.9% 2022-0 Yes 5mL 5 mL, Slow Un nunu (NS) 05-31 IV Push, ity of injection 5 21:31: PRN - [place] mL 32 [facility] Medical NS, Branch Starting on Fri05/31/22 at [...] Heal th mg tablet 00:00: 00 cefdinir 3-0 Yes [id number] 300mg Take 1 U nivers 300 mg 1-06 capsule by ity of capsule 00:00: mouth [place] 00 every 12 Medical (twelve) Branch hours. lacosamide 3-0 Yes [id number] 50mg Take 1 U nivers 50 mg 1-06 tablet by ity of tablet 00:00: mouth in [place] [address] the Medical morning Branch and 1 tablet in the evening. levETIRAcet 3-0 Yes [id number] 1000mg Take 1 Univers am 1,000 mg 1-06 tablet by ity of tablet 00:00: mouth in [place] [address] the Medical morning Branch and 1 tablet in the evening. levETIRAcet 3-0 Yes [id number] 500mg Take 1 Univers am 500 mg 1-06 tablet by ity o f tablet 00:00: mouth in [place] 00 the Medical morning Branch and 1 tablet in the evening. cefdinir 2023-0 Yes [id number] 300mg Take 1 U nivers 300 mg 1-06 capsule by ity of capsule 00:00: mouth [place] 00 every 12 Medical (twelve) Branch hours. lacosamide 2023-0 Yes [id number] 50mg Take 1 U nivers 50 mg 1-06 tablet by ity of tablet 00:00: mouth in [place] 00 the Medical morning Branch and 1 tablet in the evening. levETIRAcet 2023-0 Yes [id number] 1000mg Take 1 Univers am 1,000 mg 1-06 tablet by ity of tablet 00:00: mouth in [place] 00 the Medical morning Branch and 1 tablet in the evening. levETIRAcet 3-0 Yes [id number] 500mg Take 1 Univers am 500 mg 1-06 tablet by ity o f tablet 00:00: mouth in [place] 00 the Medical morning Branch and 1 tablet in the evening. cefdinir 2023-0 Yes [id number] 300mg Take 1 U nivers 300 mg 1-06 capsule by ity of capsule 00:00: mouth [place] 00 every 12 Medical ([facility]) Branch hours. lacosamide 3-0 Yes [id number] 50mg Take 1 U nivers 50 mg 1-06 tablet by ity of tablet 00:00: mouth in [place] 00 the Medical morning Branch and 1 tablet in the evening. levETIRAcet 2023-0 Yes [id number] 1000mg Take 1 Univers am 1,000 mg 1-06 tablet by ity of tablet 00:00: mouth in [place] 00 the Medical morning Branch and 1 tablet in the evening. levETIRAcet 2023-0 Yes [id number] 500mg Take 1 Univers am 500 mg 1-06 tablet by ity o f tablet 00:00: mouth in [place] 00 the Medical morning Branch and 1 tablet in the evening. cefdinir 2023-0 Yes [id number] 300mg Take 1 U nivers 300 mg 1-06 capsule by ity of capsule 00:00: mouth [place] 00 every 12 Medical ([facility]) Branch hours. lacosamide 2023-0 Yes [id number] 50mg Take 1 U nivers 50 mg 1-06 tablet by ity of tablet 00:00: mouth in [place] 00 the Medical morning Branch and 1 tablet in the evening. levETIRAcet 2023-0 Yes [id number] 1000mg Take 1 Univers am 1,000 mg 1-06 tablet by ity of tablet 00:00: mouth in [place] 00 the [facility] morning Branch and 1 tablet in the evening. levETIRAcet 2023-0 Yes [id number] 500mg Take 1 Univers am 500 mg 1-06 tablet by ity o f tablet 00:00: mouth in [place] 00 the [facility] morning Branch and 1 tablet in the evening. cefdinir 3-0 Yes [id number] 300mg Take 1 U nivers 300 mg 1-06 capsule by ity of capsule 00:00: mouth [place] 00 every 12 Medical (twelve) Branch hours. lacosamide 3-0 Yes [id number] 50mg Take 1 U nivers 50 mg 1-06 tablet by ity of tablet 00:00: mouth in [place] 00 the [facility] morning [place] and 1 tablet in the evening. levETIRAcet 3-0 Yes [id number] 1000mg Take 1 Univers am 1,000 mg 1-06 tablet by ity of tablet 00:00: mouth in [place] 00 the [facility] morning Branch and 1 tablet in the evening. levETIRAcet 3-0 Yes [id number] 500mg Take 1 Univers am 500 mg 1-06 tablet by ity o f tablet 00:00: mouth in [place] 00 the [facility] and 1 tablet in the evening. lacosamide 3-0 3- No [id number] 50mg Take 1 Univers 50 mg 1-06 04-07 tablet by ity of tablet 00:00: 04:59 mouth in [place] 00 :00 the [facility] Branch and 1 tablet in the evening. Do all this for 90 days. levETIRAcet 2023-0 2023- No [id number] 1000mg Take 1 Univers am 1,000 mg 1-06 04-07 tablet by it y of tablet 00:00: 04:59 mouth in [place] 00 :00 the [facility] Branch and 1 tablet in the evening. Do all this for 90 days. levETIRAcet 2023-0 3- No [id number] 500mg Take 1 Univers am 500 mg 1-06 04-07 tablet by ity of tablet 00:00: 04:59 mouth in [place] 00 :00 the Medical morning Branch and 1 tablet in the evening. Do all this for 90 days. Levetiracet 3-0 2023- No 1500mg Take 1,500 Suresh am (KEPPRA) 1-06 01-30 mg by [facility] 1,000 mg 00:00: 00:00 mouth tablet 00 :00 Levetiracet 3-0 2023- No 1500mg Take 1,500 Suresh am (KEPPRA) 1-06 01-30 mg by [facility] 1,000 mg 00:00: 00:00 mouth tablet 00 :00 Levetiracet 3-0 2023- No 1500mg Take 1,500 Suresh am (KEPPRA) 1- 01-30 mg by [facility] 1,000 mg 00:00: 00:00 mouth tablet 00 :00 Levetiracet 3-0 2023- No 1500mg Take 1,500 Suresh am (KEPPRA) 1- 01-30 mg by [facility] 1,000 mg 00:00: 00:00 mouth tablet 00 :00 Levetiracet 3-0 2023- No 1500mg Take 1,500 Suresh am (KEPPRA) 1- 01-30 mg by [facility] 1,000 mg 00:00: 00:00 mouth tablet 00 :00 Levetiracet 3-0 2023- No 1500mg Take 1,500 Suresh am (KEPPRA) 1- 01-30 mg by [facility] 1,000 mg 00:00: 00:00 mouth tablet 00 :00 Levetiracet 3-0 2023- No 1500mg Take 1,500 Suresh am (KEPPRA) - 01-30 mg by [facility] 1,000 mg 00:00: 00:00 mouth tablet 00 :00 Levetiracet 3-0 2023- No 1500mg Take 1,500 Suresh am (KEPPRA) 1-06 01-30 mg by [facility] 1,000 mg 00:00: 00:00 mouth tablet 00 :00 Levetiracet 2023-0 2023- No 1500mg Take 1,500 Suresh am (KEPPRA) 1-06 01-30 mg by [facility] 1,000 mg 00:00: 00:00 mouth tablet 00 :00 levETIRAcet 3-0 2023- No 500mg Take 500 Suresh am (KEPPRA) 05-31 01-28 mg by Health 500 mg 00:00: 00:00 mouth tablet 00 :00 levETIRAcet 0 2023- No 500mg Take 500 Suresh am (KEPPRA) 05-31 01-28 mg by Health 500 mg 00:00: 00:00 mouth tablet 00 :00 levETIRAcet 0 2023- No 500mg Take 500 Suresh am (KEPPRA) 05-31-28 mg by Health 500 mg 00:00: 00:00 mouth tablet 00 :00 levETIRAcet 0 202- No 500mg Take 500 Suresh am (KEPPRA) 05-31-28 mg by [facility] 500 mg 00:00: 00:00 mouth tablet 00 :00 levETIRAcet 0 202- No 500mg Take 500 Suresh am (KEPPRA) 05-31 01-28 mg by [facility] 500 mg 00:00: 00:00 mouth tablet 00 :00 levETIRAcet 0 2022- No 500mg Take 500 Suresh am (KEPPRA) 05-31 01-28 mg by [facility] 500 mg 00:00: 00:00 mouth tablet 00 :00 levETIRAcet 0 2022- No 500mg Take 500 Suresh am (KEPPRA) 05-31 01-28 mg by [facility] 500 mg 00:00: 00:00 mouth tablet 00 :00 levETIRAcet 2022-0 3- No 500mg Take 500 Suresh am (KEPPRA) 05-31-28 mg by [facility] 500 mg 00:00: 00:00 mouth tablet 00 :00 levETIRAcet 0 2022- No 500mg Take 500 Suresh am (KEPPRA) 05-31 01-28 mg by [facility] 500 mg 00:00: 00:00 mouth tablet 00 :00 cefdinir 2022-0 2022- No [id number] 300mg Take 1 Univers 300 mg 05-31 capsule by abdelrahman of capsule 00:00: 05:59 mouth [place] 00 :00 every 12 Medical (twelve) Branch hours for 10 days. TAKE 1 2021-05 No TABLET 1-04 DAILY. 00:00: 00 TAKE 1 2021-05 No TABLET 1-04 DAILY. 00:00: 00 TAKE 1 2022-1 No TABLET 1-04 DAILY. 00:00: 00 TAKE 1 2-1 No TABLET 1-04 DAILY. 00:00: 00 1 tab oral 2022-1 No every 6 0-28 hours 00:00: 00 TAKE 1 2022-1 No TABLET 0-28 DAILY. 00:00: 00 1 tab oral 2022-1 No every 6 0-28 hours 00:00: 00 TAKE 1 2022-1 No TABLET 0-28 DAILY. 00:00: 00 1 tab oral 2022-1 No every 6 0-28 hours 00:00: 00 1 tab oral 2022-1 No every 6 0-28 hours 00:00: 00 TAKE 1 2022-1 No TABLET 0-28 DAILY. 00:00: 00 TAKE 1 2022-1 No TABLET 0-28 DAILY. 00:00: 00 1 tab oral 2022-1 No every 6 0-28 hours 00:00: 00 TAKE 1 2-1 No TABLET 0-28 DAILY. 00:00: 00 TAKE ONE 2-1 No 300 (1) 0-26 CAPSULE(S) 00:00: BY MOUTH 00 EVERY TWELVE HOURS. TAKE ONE 2-1 No (1) 0-26 TABLET(S) 00:00: BY MOUTH 00 THREE TIMES A DAY. TAKE ONE 2-1 No 300 (1) 0-26 CAPSULE(S) 00:00: BY MOUTH 00 EVERY TWELVE HOURS. TAKE ONE 2-1 No 300 (1) 0-26 CAPSULE(S) 00:00: BY MOUTH 00 EVERY TWELVE HOURS. TAKE ONE 2-1 No (1) 0-26 TABLET(S) 00:00: BY MOUTH 00 THREE TIMES A DAY. TAKE ONE 2021-1 No 300 (1) 0-26 CAPSULE(S) 00:00: BY MOUTH 00 EVERY TWELVE HOURS. TAKE ONE 2-1 No (1) 0-26 TABLET(S) 00:00: BY MOUTH 00 THREE TIMES A DAY. TAKE ONE 2-1 No 300 (1) 0-26 CAPSULE(S) 00:00: BY MOUTH 00 EVERY TWELVE HOURS. TAKE ONE 2-1 No (1) 0-26 TABLET(S) 00:00: BY MOUTH 00 THREE TIMES A DAY. levETIRAcet 2020- Yes 250mg Take 250 M ethodi am [...] l 10 ORAL) midodrine 2020-0 Yes 2.5mg Q.[id number] Take 2.5 Methodi (PROAMATINE 4-15 [id number] mg by s t ) 2.5 MG 09:30: 3D mouth 3 Hospit a tablet 01 (three) l times a day. lacosamide 0 Yes 50mg Q.5D Take 50 mg M ethodi (Vimpat) 50 4-[address] mg tablet 09:30: (two) Hospita 01 times a l day. levETIRAcet 2021-0 Yes 250mg Take 250 M ethodi am [...] l 10 ORAL) midodrine 0 Yes 2.5mg Q.[id number] Take 2.5 Methodi (PROAMATINE 4-15 [id number] mg by s t ) 2.5 MG [...] l 10 ORAL) midodrine 0 Yes 2.5mg Q.[id number] Take 2.5 [facility] (PROAMATINE 4-15 [id number] mg by s t ) 2.5 MG 09:30: 3D mouth 3 Hospit a tablet 01 (three) l times a day. lacosamide 0 Yes 50mg Q.5D Take 50 mg M ethodi (Vimpat) 50 4-[address] mg tablet 09:30: (two) Hospita 01 times a l day. lacosamide 0 Yes 50mg Q.5D Take [...] mouth Hospita tablet 01 nightly. l levETIRAcet 0 Yes 250mg Take 250 M ethodi am (KEPPRA) 4-[address] 250 MG 09:30: mouth. Hospita tablet 01 Taking l 1,500mg BID. aspirin 0 Yes 81mg QD Take 81 mg Meth nicolasa (ECOTRIN) 4-[address] 81 MG 09:30: daily. Hospita enteric 01 l coated tablet Lactobac Yes Take by Method i no.41/Bifid 4-[address] obact no.7 09:30: Hospita (PROBIOTIC- 01 l 10 ORAL) midodrine 0 Yes 2.5mg Q.[id number] Take 2.5 Methodi (PROAMATINE 4-15 [id number] mg by s t ) 2.5 MG 09:30: 3D mouth 3 Hospit a tablet 01 (three) l times a day. lacosamide 0 Yes 50mg Q.5D Take 50 mg M ethodi (Vimpat) 50 4-[address] mg tablet 09:30: (two) Hospita 01 times a l day. levothyroxi 0 Yes 175ug QD Take 175 [...] st 81 MG 09:30: daily. Hospita enteric l coated tablet Lactobac Yes Take by Method i no.41/Bifid 4-[address] obact no.7 09:30: Hospita (PROBIOTIC- 01 l 10 ORAL) midodrine 2020-0 Yes 2.5mg Q.[id number] Take 2.5 Methodi (PROAMATINE 4-15 [id number] mg by s t ) 2.5 MG 09:30: 3D mouth 3 Hospit a tablet 01 (three) l times a day. rosuvastati Yes 10mg QD Take 10 mg Methodi n (CRESTOR) 4-[address] 10 mg 09:30: daily. Hospita tablet l lacosamide 2020-0 Yes 50mg Q.5D Take 50 mg M ethodi (Vimpat) 50 4-[address] mg tablet 09:30: (two) Hospita 01 times a l day. lacosamide 0 Yes 50mg Q.5D Take [...] st 10 mg 09:30: daily. Hospita tablet l gabapentin 2020-0 Yes 100mg Take 100 [...] l 10 ORAL) midodrine 0 Yes 2.5mg Q.18099994 Take 2.5 Methodi (PROAMATINE 4-15 [id number] mg by s t ) 2.5 MG 09:30: 3D mouth 3 Hospit a tablet 01 (three) l times a day. gabapentin 2020-0 Yes 100mg Take 100 Me thodi (NEURONTIN) 4-[address] 100 mg 09:30: mouth. Hospita capsule 01 Taking 1 l tablet in the AM and 3 tablets in the PM. levETIRAcet 0 Yes 250mg Take 250 M [...] l 10 ORAL) midodrine 0 Yes 2.5mg Q.[id number] Take 2.5 Methodi (PROAMATINE 4-15 [id number] mg by s t ) 2.5 MG 09:30: 3D mouth 3 Hospit a tablet 01 (three) l times a day. hydrOXYchlo Yes 200mg QD Take 200 M ethodi roQUINE 4-[address] (PLAQUENIL) 09:30: mouth Hospi ta 200 mg 01 daily. l tablet lacosamide Yes 50mg Q.5D Take 50 mg [...] 09:30: daily. Hospita tablet 01 l lubiproston 2020-0 Yes 24ug Q.5D Take 24 Met hodi e (AMITIZA) 4-[address] 24 MCG 09:30: mouth 2 Hospita capsule 01 (two) l times a day with meals. gabapentin 2020-0 Yes 100mg Take 100 Me [...] l 10 ORAL) midodrine 2020-0 Yes 2.5mg Q.[id number] Take 2.5 Methodi (PROAMATINE 4-15 [id number] mg by s t ) 2.5 MG 09:30: 3D mouth 3 Hospit a tablet 01 (three) l times a day. traZODone 2020-0 Yes 100mg QD Take 100 Met hodi (DESYREL) 4-[address] 50 MG 09:30: mouth Hospita tablet 01 nightly. l lacosamide 2020-0 Yes 50mg Q.5D Take 50 mg M ethodi (Vimpat) 50 4-[address] mg tablet 09:30: (two) Hospita 01 times a l day. levETIRAcet 2021-0 Yes 250mg Take 250 M ethodi am [...] (two) l times a day with meals. aspirin Yes 81mg QD Take 81 mg Meth nicolasa (ECOTRIN) 4-[address] 81 MG 09:30: daily. Hospita enteric 01 l coated tablet traZODone Yes 100mg QD Take 100 Met [...] 01 l 10 ORAL) midodrine Yes 2.5mg Q.95331631 Take 2.5 Methodi (PROAMATINE 4-15 [id number] mg by s t ) 2.5 MG 09:30: 3D mouth 3 Hospit a tablet 01 (three) l times a day. Lactobac Yes Take by Method i no.41/Bifid 4-[address] obact no.7 09:30: Hospita (PROBIOTIC- 01 l 10 ORAL) midodrine Yes 2.5mg Q.[id number] Take 2.5 Methodi (PROAMATINE 4-15 [id number] mg by s t ) 2.5 MG [...] l 10 ORAL) midodrine 0 Yes 2.5mg Q.[id number] Take 2.5 Methodi (PROAMATINE 4-15 [id number] mg by s t ) 2.5 MG [...] st 10 mg 09:30: daily. Hospita tablet l gabapentin Yes 100mg Take 100 Me [...] l 10 ORAL) midodrine 2020-0 Yes 2.5mg Q.[id number] Take 2.5 [facility] (PROAMATINE 4-15 [id number] mg by s t ) 2.5 MG [...] 01 l 10 ORAL) midodrine Yes 2.5mg Q.41652028 Take 2.5 [facility] (PROAMATINE 4-15 [id number] mg by s t ) 2.5 MG [...] 01 l 10 ORAL) midodrine Yes 2.5mg Q.[id number] Take 2.5 [facility] (PROAMATINE 4-15 [id number] mg by s t ) 2.5 MG [...] st 81 MG 09:30: daily. Hospita enteric l coated tablet Lactobac Yes Take by Method i no.41/Bifid 4-[address] obact no.7 09:30: Hospita (PROBIOTIC- 01 l 10 ORAL) midodrine Yes 2.5mg Q.[id number] Take 2.5 Methodi (PROAMATINE 4-15 [id number] mg by s t ) 2.5 MG [...] st 10 mg 09:30: daily. Hospita tablet l gabapentin Yes 100mg Take 100 Me [...] 01 l 10 ORAL) midodrine Yes 2.5mg Q.[id number] Take 2.5 Methodi (PROAMATINE 4-15 [id number] mg by s t ) 2.5 MG 09:30: 3D mouth 3 Hospit a tablet 01 (three) l times a day. lacosamide Yes 50mg Q.5D Take 50 mg M ethodi (Vimpat) 50 4-[address] mg tablet 09:30: (two) Hospita 01 times a l day. amoxicillin 2020- No 1{tbl} 1 tablet, Univers -clavulanat 05-31 Oral, ONCE i ty of e 05:00: 04:02 NOW, 1 [place] (AUGMENTIN) 00 :00 dose, Tue Med ical [...] 1 [place] mg 00 :00 dose, [facility] Medical 05/30/20 at Branch 2130, EVANS famotidine No 20mg 20 mg, Univ ers (PEPCID 05-31 Slow IV ity of (PF)) 03:30: 02:26 Push, [place] injection 00 :00 ONCE, 1 Medical 20 mg dose, [facility] 05/30/20 at 2130, EVANS iohexol 2020- No 100mL 100 [facility], [facility] ([facility]IP[facility] 05-31 Intravenou it y of 350 01:45: 01:37 s, ONCE, 1 [place] BULK-150 00 :00 dose, [facility] Medica l mL) 05/30/20 at Branch injection 194, 100 mL Routine butalbital- 2020- No 1{tbl} 1 tablet, Univers acetaminoph 05-31 Oral, ONCE i ty of en-caff 01:45: 00:52 NOW, 1 [place] (ESGIC) 00 :00 dose, [facility] Medical 50-325-40 05/30/20 at [facility] h mg tablet 1 1944, tablet Routine diphenhydrA No 50mg 50 mg, Uni vers MINE 05-31 Slow IV ity of (BENADRYL) 00:15: 00:52 Push, [place] injection 00 :00 ONCE, 1 Medical 50 mg dose, [facility] 05/30/20 at 1815, STAT methylPREDN No 40mg 40 mg, IV Univers ISolone sod 05-31 Piggyback, i ty of succ 00:15: 00:52 ONCE, 1 [place] (SOLU-MEDRO 00 :00 dose, [facility] Med ical L (PF)) 05/30/20 at Branch injection 181, STAT 40 mg NaCl 0.9% 2020- No 1000mL at 999 Uni vers (NS) bolus 05-30 mL/hr, ity of infusion 23:15: 02:15 1,000 mL, [place] as 1,000 mL 00 :00 IV Medical Infusion, [place] ONCE, 1 dose, [facility] 05/30/20 at 1715, EVANS albuterol 2020-0 Yes [id number] 2{puff} Inhale 2 Univers 90 1-05 Puffs ity of mcg/actuati 00:00: every 4 [place] on inhaler 00 (four) Medical hours as Branch needed for Wheezing or Shortness of Breath. hydrOXYzine 2020-0 Yes [id number] 25mg Take 1 Univers 25 mg 1-05 tablet by ity of tablet 00:00: mouth [place] 00 every 6 Medical (six) Branch hours as needed for Itching. albuterol 2020-0 Yes [id number] 2{puff} Inhale 2 Univers 90 1-05 Puffs ity of mcg/actuati 00:00: every 4 [place] on inhaler 00 (four) Medical hours as Branch needed for Wheezing or Shortness of Breath. albuterol 0 Yes [id number] 2{puff} Inhale 2 Univers 90 1-05 Puffs ity of mcg/actuati 00:00: every 4 [place] on inhaler 00 (four) Medical hours as Branch needed for Wheezing or Shortness of Breath. hydrOXYzine 0 Yes [id number] 25mg Take 1 Univers 25 mg 1-05 tablet by ity of tablet 00:00: mouth [place] 00 every 6 Medical (six) Branch hours as needed for Itching. hydrOXYzine 2020-0 Yes [id number] 25mg Take 1 Univers 25 mg 1-05 tablet by ity of tablet 00:00: mouth [place] 00 every 6 Medical (six) Branch hours as needed for Itching. albuterol 2020-0 Yes [id number] 2{puff} Inhale 2 Univers 90 1-05 Puffs ity of mcg/actuati 00:00: every 4 [place] on inhaler 00 (four) Medical hours as Branch needed for Wheezing or Shortness of Breath. hydrOXYzine 2020-0 Yes [id number] 25mg Take 1 Univers 25 mg 1-05 tablet by ity of tablet 00:00: mouth [place] 00 every 6 Medical (six) Branch hours as needed for Itching. albuterol 2020-0 Yes [id number] 2{puff} Inhale 2 Univers 90 1-05 Puffs ity of mcg/actuati 00:00: every 4 [place] on inhaler 00 (four) Medical hours as Branch needed for Wheezing or Shortness of Breath. hydrOXYzine Yes [id number] 25mg Take 1 Univers 25 mg 1-05 tablet by ity of tablet 00:00: mouth [place] 00 every 6 Medical (six) Branch hours as needed for Itching. albuterol Yes [id number] 2{puff} Inhale 2 Univers 90 1-05 Puffs ity of mcg/actuati 00:00: every 4 [place] on inhaler 00 (four) Medical hours as Branch needed for Wheezing or Shortness of Breath. hydrOXYzine Yes [id number] 25mg Take 1 Univers 25 mg 1-05 tablet by ity of tablet 00:00: mouth [place] 00 every 6 Medical (six) Branch hours as needed for Itching. albuterol Yes [id number] 2{puff} Inhale 2 Univers 90 1-05 Puffs ity of mcg/actuati 00:00: every 4 [place] on inhaler 00 (four) Medical hours as Branch needed for Wheezing or Shortness of Breath. hydrOXYzine Yes [id number] 25mg Take 1 Univers 25 mg 1-05 tablet by ity of tablet 00:00: mouth [place] 00 every 6 Medical (six) Branch hours as needed for Itching. amoxicillin 2020- No [id number] 1{tbl} Take 1 Univers -clavulanat 1-05 -13 [...] Branch needed for Pain (scale 4-6). proMETHazin 2013-1 Yes 12.5mg Take 0.5 Univers e 0-06 [...] Name Observation Time Observation Value Comments Source HEIGHT 2022-12-23 00:00:00 180.3 cm HEIGHT 2022-12-23 00:00:00 180.3 cm HEIGHT 2022-12-23 00:00:00 180.3 cm Systolic blood 2022-11-08 01:34:11 111 mm[Hg] Univer [facility] Diastolic blood 2022-11-08 01:34:11 81 mm[Hg] [facility] Heart rate 2022-11-08 01:34:11 60 /min [facility] Respiratory rate 2022-11-08 01:34:11 13 /min [facility] Oxygen saturation in 2022-11-08 01:34:11 94 /min [facility] Arterial blood by [facility] Pulse oximetry [place] Body temperature 2022-11-07 20:40:00 36.39 Yanet [facility] Body height 2022-11-07 20:40:00 180.3 cm [facility] Body weight 2022-11-07 20:40:00 90.719 kg [facility] BMI 2022-11-07 20:40:00 27.89 kg/m2 [facility] Systolic blood 2022-10-28 22:00:00 113 mm[Hg] [facility] Diastolic blood 2022-10-28 22:00:00 69 mm[Hg] Unive rsity [facility] Heart rate 2022-10-28 22:00:00 61 /min [facility] Respiratory rate 2022-10-28 22:00:00 20 /min [facility] Oxygen saturation in 2022-10-28 22:00:00 96 /min [facility] blood [facility] Pulse oximetry Branch Body temperature 2022-10-28 19:05:00 37 Yanet [facility] Body height 2022-10-28 19:05:00 180.3 cm [facility] Body weight 2022-10-28 19:05:00 90.719 kg [facility] BMI 2022-10-28 19:05:00 27.89 kg/m2 [facility] Systolic blood 2022-06-24 07:00:00 98 mm[Hg] [facility] pressure Diastolic blood 2022-06-24 07:00:00 64 mm[Hg] [facility] Heart rate 2022-06-24 07:00:00 64 /min [facility] Body temperature 2022-06-24 07:00:00 36.5 [facility] Respiratory rate 2022-06-24 07:00:00 18 /min [facility] Systolic blood 2022-06-24 07:00:00 98 mm[Hg] [facility] pressure Diastolic blood 2022-06-24 07:00:00 64 mm[Hg] [facility] Heart rate 2022-06-24 07:00:00 64 /min [facility] Body temperature 2022-06-24 07:00:00 36.5 [facility] Respiratory rate 2022-06-24 07:00:00 18 /min [facility] Oxygen saturation in 2022-06-24 03:00:00 96 /min [facility] Arterial blood by Pulse oximetry Oxygen saturation in 2022-06-24 03:00:00 96 /min [facility] Arterial blood by Pulse oximetry Body height 2022-06-21 17:53:00 180.3 cm [facility] Body weight 2022-06-21 17:53:00 106.595 kg [facility] BMI 2022-06-21 17:53:00 32.78 kg/m2 [facility] Body height 2022-06-21 17:53:00 180.3 cm [facility] Body weight 2022-06-21 17:53:00 106.595 kg [facility] BMI 2022-06-21 17:53:00 32.78 kg/m2 [facility] Systolic blood 2022-06-24 07:00:00 98 mm[Hg] [facility] pressure Diastolic blood 2022-06-24 07:00:00 64 mm[Hg] [facility] pressure Heart rate 2022-06-24 07:00:00 64 /min [facility] Body temperature 2022-06-24 07:00:00 36.5 [facility] Respiratory rate 2022-06-24 07:00:00 18 /min [facility] Systolic blood 2022-06-24 07:00:00 98 mm[Hg] [facility] pressure Diastolic blood 2022-06-24 07:00:00 64 mm[Hg] [facility] pressure Heart rate 2022-06-24 07:00:00 64 /min [facility] Body temperature 2022-06-24 07:00:00 36.5 [facility] Respiratory rate 2022-06-24 07:00:00 18 /min [facility] Oxygen saturation in 2022-06-24 03:00:00 96 /min [facility] Arterial blood by Pulse oximetry Oxygen saturation in 2022-06-24 03:00:00 96 /min [facility] Arterial blood by Pulse oximetry Body height 2022-06-21 17:53:00 180.3 cm [facility] Body weight 2022-06-21 17:53:00 106.595 kg [facility]h ealt BMI 2022-06-21 17:53:00 32.78 kg/m2 S[facility] ealt Body height 2022-06-21 17:53:00 180.3 cm [facility] Body weight 2022-06-21 17:53:[address] [facility] BMI 2022-06-21 17:53:00 32.78 kg/m2 [facility] Respiratory rate 2022-06-01 00:00:00 11 /min [facility] Systolic blood 2022-06-01 00:00:00 110 mm[Hg] [facility] Diastolic blood 2022-06-01 00:00:00 80 mm[Hg] [facility] Heart rate 2022-06-01 00:00:00 81 /min [facility] Oxygen saturation in 2022-05-31 23:30:00 98 /min [facility] blood by [place] [facility] Pulse oximetry [facility] Body weight 2022-05-31 21:04:00 95.255 kg [facility] BMI 2022-05-31 21:04:00 29.29 kg/m2 [facility] Systolic blood 2020-05-31 03:01:00 105 mm[Hg] [facility] Diastolic blood 2020-05-31 03:01:00 71 mm[Hg] [facility] Heart rate 2020-05-31 03:01:00 73 /min [facility] Body temperature 2020-05-31 03:01:00 36.56 Yanet [facility] Respiratory rate 2020-05-31 03:01:00 18 /min [facility] Oxygen saturation in 2020-05-31 03:01:00 98 /min [facility]ial blood by [place] [facility] Pulse oximetry Branch Body height 2020-05-30 21:27:00 180.3 cm [facility] Body weight 2020-05-30 21:27:00 92.987 kg [facility] BMI 2020-05-30 21:27:00 28.59 kg/m2 [facility] Systolic blood 2020-05-31 03:01:00 105 mm[Hg] [facility] Diastolic blood 2020-05-31 03:01:00 71 mm[Hg] [facility] Heart rate 2020-05-31 03:01:00 73 /min [facility] Body temperature 2020-05-31 03:01:00 36.56 Yanet [facility] Respiratory rate 2020-05-31 03:01:00 18 /min [facility] Oxygen saturation in 2020-05-31 03:01:00 98 /min [facility] Arterial blood by [facility] Pulse oximetry Branch Body height 2020-05-30 21:27:00 180.3 cm [facility] Body weight 2020-05-30 21:27:00 92.987 kg [facility] BMI 2020-05-30 21:27:00 28.59 kg/m2 [facility] Heart rate 2022-12-24 12:00:00 66 /min [facility] Respiratory rate 2022-12-24 12:00:00 16 /min [facility] Oxygen saturation in 2022-12-24 12:00:00 99 /min [facility] Arterial blood by Medical nter Pulse oximetry Systolic blood 2022-12-24 11:00:00 112 mm[Hg] [facility] Diastolic blood 2022-12-24 11:00:00 79 mm[Hg] [facility] Body temperature 2022-12-24 11:00:00 36.56 Yanet [facility] Body height 2022-12-23 00:00:00 180.3 cm [facility] Systolic blood 2022-06-24 07:00:00 98 mm[Hg] [facility] pressure Diastolic blood 2022-06-24 07:00:00 64 mm[Hg] [facility] pressure Heart rate 2022-06-24 07:00:00 64 /min Kerwin Johnny [facility] Body temperature 2022-06-24 07:00:00 36.5 [facility] Respiratory rate 2022-06-24 07:00:00 18 /min [facility] Oxygen saturation in 2022-06-24 03:00:00 96 /min [facility] Arterial blood by Pulse oximetry Body height 2022-06-21 17:53:00 180.3 cm [facility]h [facility] Body weight 2022-06-21 17:53:[address] [facility] BMI 2022-06-21 17:53:00 32.78 kg/m2 [facility] BP Systolic 2022-06-10 15:11:00 104 [...] Date / Time Performing Clinician Source Performed POCT-GLUCOSE METER 2022-12-24 08:06:00 Francisca Alston [facility] RAPID DRUG SCREEN, URINE 2022-12-24 03:37:00 Diego Beckford [facility] URINALYSIS W/ REFLEX 2022-12-24 03:37:00 Diego Beckford [facility] URINE CULTURE [facility] CBC W/PLT COUNT & AUTO 2022-12-24 03:34:00 Diego Beckford [facility] DIFFERENTIAL [facility] BASIC METABOLIC PANEL 2022-12-24 03:34:00 Олег Foreman [facility] CBC W/PLT COUNT & AUTO 2022-12-24 03:34:00 Diego Beckford [facility] DIFFERENTIAL [facility] POCT-GLUCOSE METER 2022-12-23 20:46:00 Francisca Alston [facility] POCT-GLUCOSE METER 2022-12-23 17:57:00 Francisca Alston [facility] EEG AWAKE AND DROWSY 2022-12-23 15:54:13 Harris Fernandes [facility] POCT-GLUCOSE METER 2022-12-23 13:30:00 NellybeccaLeida berriosandrés [facility] ETHANOL 2022-12-23 07:25:00 Harris Fernandes [facility] POCT-GLUCOSE METER 2022-12-23 06:01:00 Aiden Palmer [facility] HIGH SENSITIVITY 2022-12-23 04:56:00 [facility] LACTIC ACID, VENOUS 2022-12-23 04:56:00 Diego Beckford [facility] ECG 12-LEAD 2022-12-23 04:23:09 [facility] 2022-12-23 04:23:09 Unknown, [id number] Doctor [facility] CBC W/PLT COUNT & AUTO 2022-12-23 00:17:00 [facility] COMPREHENSIVE METABOLIC 2022-12-23 00:17:00 [facility] PANEL Center MAGNESIUM 2022-12-23 00:17:00 [facility] PHOSPHORUS 2022-12-23 00:17:00 [facility] TSH/FREE T4 IF INDICATED 2022-12-23 00:17:00 [facility] LIPID PANEL 2022-12-23 00:17:00 [facility] HEMOGLOBIN A1C 2022-12-23 00:17:00 [facility] PROTHROMBIN TIME/INR 2022-12-23 00:17:00 [facility] APTT 2022-12-23 00:17:00 [facility], [facility]ON[facility]ED 2022-12-23 00:17:00 [facility] T4, FREE 2022-12-23 00:17:00 [facility] HC LAB HIV-1 AG 2022-12-23 00:17:00 Diego Beckford [facility] W/HIV-1&2 AB [facility] CBC W/PLT COUNT & AUTO 2022-12-23 00:17:00 [facility] POCT TEST 2022-11-07 21:42:00 Jayda Hernandez [facility] BLOOD CULTURE SCREEN 2022-11-07 21:34:00 Jayda Hernandez [facility] LIPASE 2022-11-07 21:32:00 Jayda Hernandez [facility] COMP. METABOLIC PANEL 2022-11-07 21:32:00 Jayda Hernandez [facility] ([id number]) [facility] CBC WITH DIFF 2022-11-07 21:32:00 Jayda Hernandez [facility] URINALYSIS 2022-11-07 21:32:00 Jayda Hernandez [facility] BLOOD CULTURE SCREEN 2022-11-07 21:20:00 Jayda Hernandez [facility] CONSENT/REFUSAL FOR 2022-11-07 20:32:35 Doctor Unassigned, No [facility] DIAGNOSIS AND TREATMENT Name Medical Branch URINALYSIS 2022-10-28 20:12:00 Jake Renner [facility] LIPASE 2022-10-28 19:38:00 Jake Renner [facility] COMP. METABOLIC PANEL 2022-10-28 19:38:00 Jake Renner [facility] ([id number]) [facility] CBC WITH DIFF 2022-10-28 19:38:00 Jake Renner [facility] LACTIC ACID WHOLE BLOOD 2022-10-28 19:38:00 Jake Renner [facility] CONSENT/REFUSAL FOR 2022-10-28 18:56:54 Doctor Unassigned, No Un [facility] DIAGNOSIS AND TREATMENT Name Medical Branch REFERRAL- 2022-09-23 05:01:00 Doctor Unassigned, No Univer [facility] REQUEST/RESPONSE Name [facility] BASIC METABOLIC PANEL 2022-06-24 03:50:00 [facility] CBC/DIFF 2022-06-24 03:50:00 [facility] CBC 2022-06-24 03:50:00 [facility] CBC/DIFF 2022-06-24 03:50:00 [facility] BASIC METABOLIC PANEL 2022-06-24 03:50:00 [facility] CBC 2022-06-24 03:50:00 [facility] BASIC METABOLIC PANEL 2022-06-24 03:50:00 [facility] CBC/DIFF 2022-06-24 03:50:00 [facility] CBC 2022-06-24 03:50:00 [facility] NUTRITION CONSULT 2022-06-22 22:07:16 Stormy Mcdaniel lth ASSESSMENT NUTRITION CONSULT 2022-06-22 22:07:16 Stormy Mcdaniel lth ASSESSMENT NUTRITION CONSULT 2022-06-22 22:07:16 Stormy Mcdaniel lth ASSESSMENT NUTRITION CONSULT 2022-06-22 19:44:51 Stormy Mcdaniel lth ASSESSMENT NUTRITION CONSULT 2022-06-22 19:44:51 Stormy Mcdaniel lth ASSESSMENT NUTRITION CONSULT 2022-06-22 19:44:51 Stormy Mcdaniel lth ASSESSMENT 12 LEAD EKG 2022-06-22 06:51:58 Sugey Morales 12 LEAD EKG 2022-06-22 06:51:58 Sugey Morales 12 LEAD EKG 2022-06-22 06:51:58 Sugey Morales CORONAVIRUS, COVID-19, 2022-06-22 03:38:00 Leanna Scha[facility] SARS-COV-2, FLU A/B, RSV 2022-06-22 03:38:00 [facility] SARS-COV-2, FLU A/B, RSV 2022-06-22 03:38:00 [facility] CORONAVIRUS, COVID-19, 2022-06-22 03:38:00 [facility]anna [facility] MAN[facility]IT CORONAVIRUS, COVID-19, 2022-06-22 03:38:00 Leanna [facility] SARS-COV-2, FLU A/B, RSV 2022-06-22 03:38:00 [facility] URINE DRUG SCREEN 2022-06-21 22:05:00 Charli Chaudhari [facility] URINE DRUG SCREEN 2022-06-21 22:05:00 Charli Chaudhari [facility] URINE DRUG SCREEN 2022-06-21 22:05:00 Charli Chaudhari [facility] BASIC METABOLIC PANEL 2022-06-21 22:04:00 Charli Chaudhari [facility] CBC/DIFF 2022-06-21 22:04:[address] [facility] 2022-06-21 22:04:00 S[facility]y Morales [facility] FREE T4 2022-06-21 22:04:00 Juana Gomez h TOTAL T3 2022-06-21 22:04:00 Sugey Morales Healt h THYROID STIMULATING 2022-06-21 22:04:00 Juana Gomez ealth HORMONE (TSH) CBC 2022-06-21 22:04:00 Charli Chaudhari [facility]alt [facility] CBC/DIFF 2022-06-21 22:04:00 Char[facility] BASIC METABOLIC PANEL 2022-06-21 22:04:00 Charli Chaudhari [facility] CBC 2022-06-21 22:04:00 Charli [facility]audhari [facility] THYROID STIMULATING 2022-06-21 22:04:00 Juana Gomez ealth HORMONE (TSH) FREE T4 2022-06-21 22:04:00 Juana Gomez Healt [facility] FREE T3 2022-06-21 22:04:00 AbSugey [facility] TOTAL T3 2022-06-21 22:04:00 Ab, Sugey [facility] BASIC METABOLIC PANEL 2022-06-21 22:04:00 Charli Chaudhari [facility] CBC/DIFF 2022-06-21 22:04:00 Charli Chaudhari Healt h FREE T3 2022-06-21 22:04:00 Ab, Sugey [facility] FREE T4 2022-06-21 22:04:00 Juana Gomez Healt h TOTAL T3 2022-06-21 22:04:00 Sugey Morales [facility] THYROID STIMULATING 2022-06-21 22:04:00 Juana Gomez ealth HORMONE (TSH) CBC 2022-06-21 22:04:00 Charli Chaudhari Healt h REFERRAL- 2022-06-10 06:01:00 Doctor Unassigned, No [facility] REQUEST/RESPONSE Name [facility] Branch URINALYSIS 2022-05-31 22:18:00 Genia Meade [facility] CT STROKE ANGIOGRAM HEAD 2022-05-31 21:59:00 Genia Meade [facility] CT STROKE ANGIOGRAM NECK 2022-05-31 21:59:00 Genia Meade [facility] CT STROKE HEAD WO 2022-05-31 21:57:00 Genia Meade [facility] CONTRAST [facility] TROPONIN I 2022-05-31 21:36:00 Genia Meade [facility] BASIC METABOLIC PANEL 2022-05-31 21:36:00 Genia Meade Un [facility] (NA, K, CL, CO2, Medical Branch GLUCOSE, BUN, CREATININE, CA) CBC WITHOUT DIFF 2022-05-31 21:36:00 Genia Meade [facility] PROTHROMBIN TIME / INR 2022-05-31 21:36:00 [facility] 2022-05-31 21:36:00 Genia Meade [facility] THRMPLAS JAMIE [facility] POCT GLUCOSE (AUTOMATED) 2022-05-31 21:35:00 Genia Meade [facility] CONSENT/REFUSAL FOR 2022-05-31 20:58:19 Doctor Unassigned, No [facility] DIAGNOSIS AND TREATMENT Name Medical Branch URINALYSIS 2020-05-31 03:43:00 Janene Navas [facility] CT CHEST PULMONARY 2020-05-31 01:43:20 Janene Navas [facility] ANGIOGRAM [facility] Branch POCT TEST 2020-05-31 01:29:00 Janene Navas [facility] COVID-19 (ID NOW RAPID 2020-05-31 00:53:00 Janene Navas [facility] TESTING) [facility] XR CHEST 1 VW 2020-05-31 00:09:22 Janene Navas [facility] TROPONIN I 2020-05-31 00:03:00 Janene Navas [facility] COMP. METABOLIC PANEL 2020-05-31 00:03:00 Janene Navas [facility] ([id number]) [facility] CBC WITH DIFF 2020-05-31 00:03:00 Janeen Navas [facility] D-DIMER 2020-05-31 00:03:00 Janene Navas [facility] NOTICE OF PRIVACY 2020-05-30 21:02:17 Doctor Unassigned, No [facility] PRACTICES Name [facility] Plan of Care Planned Activity Planned Date Details Comments Source Future Scheduled 2027-04-24 DTAP/TDAP/TD VACCINES ([address] [facility] Test 00:00:00 - Td or Tdap) [facility] DTAP/TDAP/TD VACCINES (2 - Td or Tdap)] Future Scheduled 2023-02-23 IMM Influenza Seasonal H [...] Influenza Seasonal (>/= 19 yrs)] Future Scheduled 2023-01-24 Influenza Vaccine (#1) [facility] 00:00:00 [code = Influenza Vaccine [facility]ical Center (#1)] Future Scheduled 2022-12-29 COVID-19 VACCINE (#[facility]) [facility] 11:34:14 [code = COVID-19 VACCINE Hos pital (#1)] Future Scheduled 2022-12-29 Pneumococcal Vaccine: [facility] Test 11:34:14 Pediatrics (0 to 5 Years) Ho spital and At-Risk Patients (6 to 64 Years) (1 - PCV) [code = Pneumococcal Vaccine: Pediatrics (0 to 5 Years) and At-Risk Patients (6 to 64 Years) (1 - PCV)] Future Scheduled 2022-12-29 Hepatitis C screening [facility] 11:34:14 (procedure) [code = Hospital [id number]] Future Scheduled 2022-12-29 Screening for malignant [facility] 11:34:14 neoplasm of cervix Hospital (procedure) [code = 075901790] Future Scheduled 2022-12-29 BREAST CANCER SCREENING [facility] 11:34:14 [code = BREAST CANCER Hospit al SCREENING] Future Scheduled 2022-12-29 INFLUENZA VACCINE [code = [facility] 11:34:14 INFLUENZA VACCINE] Hospital Future Scheduled 2022-11-10 COVID-19 VACCINE (#1) [facility] 17:26:25 [code = COVID-19 VACCINE Hos pital (#1)] Future Scheduled 2022-11-10 Pneumococcal Vaccine: [facility] 17:26:25 Pediatrics (0 to 5 Years) Ho spital and At-Risk Patients (6 to 64 Years) (1 - PCV) [code = Pneumococcal Vaccine: Pediatrics (0 to 5 Years) and At-Risk Patients (6 to 64 Years) (1 - PCV)] Future Scheduled 2022-11-10 Hepatitis C screening [facility] 17:26:25 (procedure) [code = Hospital [id number]] Future Scheduled 2022-11-10 Screening for malignant [facility] 17:26:25 neoplasm of cervix Hospital (procedure) [code = 610218718] Future Scheduled 2022-11-10 BREAST CANCER SCREENING [facility] 17:26:25 [code = BREAST CANCER Hospit al SCREENING] Future Scheduled 2022-11-10 INFLUENZA VACCINE [code = [facility] 17:26:25 INFLUENZA VACCINE] Hospital Future Scheduled 2022-08-26 COVID-19 VACCINE (#1) [facility] 03:05:42 [code = COVID-19 VACCINE Hos pital (#1)] Future Scheduled 2022-08-26 Pneumococcal Vaccine: [facility] 03:05:42 Pediatrics (0 to 5 Years) Ho spital and At-Risk Patients (6 to 64 Years) (1 - PCV) [code = Pneumococcal Vaccine: Pediatrics (0 to 5 Years) and At-Risk Patients (6 to 64 Years) (1 - PCV)] Future Scheduled 2022-08-26 Hepatitis C screening [facility] 03:05:42 (procedure) [code = Hospital [id number]] Future Scheduled 2022-08-26 Screening for malignant [facility] 03:05:42 neoplasm of cervix Hospital (procedure) [code = 983553348] Future Scheduled 2022-08-26 BREAST CANCER SCREENING [facility] 03:05:42 [code = BREAST CANCER Hospit al SCREENING] Future Scheduled 2022-08-26 INFLUENZA VACCINE [code = [facility] 03:05:42 INFLUENZA VACCINE] Hospital Future Scheduled 2022-08-26 COVID-19 VACCINE (#1) [facility] 03:05:42 [code = COVID-19 VACCINE Hos pital (#1)] Future Scheduled 2022-08-26 Pneumococcal Vaccine: [facility] 03:05:42 Pediatrics (0 to 5 Years) Ho spital and At-Risk Patients (6 to 64 Years) (1 - PCV) [code = Pneumococcal Vaccine: Pediatrics (0 to 5 Years) and At-Risk Patients (6 to 64 Years) (1 - PCV)] Future Scheduled 2022-08-26 Hepatitis C screening [facility] 03:05:42 (procedure) [code = Hospital [id number]] Future Scheduled 2022-08-26 Screening for malignant [facility] 03:05:42 neoplasm of cervix Hospital (procedure) [code = 401998123] Future Scheduled 2022-08-26 BREAST CANCER SCREENING [facility] 03:05:42 [code = BREAST CANCER Hospit al SCREENING] Future Scheduled 2022-08-26 INFLUENZA VACCINE [code = [facility] 03:05:42 INFLUENZA VACCINE] Hospital Future Scheduled 2022-08-26 COVID-19 VACCINE (#1) [facility] 03:05:42 [code = COVID-19 VACCINE Hos pital (#1)] Future Scheduled 2022-08-26 Pneumococcal Vaccine: [facility] 03:05:42 Pediatrics (0 to 5 Years) Ho spital and At-Risk Patients (6 to 64 Years) (1 - PCV) [code = Pneumococcal Vaccine: Pediatrics (0 to 5 Years) and At-Risk Patients (6 to 64 Years) (1 - PCV)] Future Scheduled 2022-08-26 Hepatitis C screening [facility] 03:05:42 (procedure) [code = Hospital [id number]] Future Scheduled 2022-08-26 Screening for malignant [facility] 03:05:42 neoplasm of cervix Hospital (procedure) [code = 899093210] Future Scheduled 2022-08-26 BREAST CANCER SCREENING [facility] 03:05:42 [code = BREAST CANCER Hospit al SCREENING] Future Scheduled 2022-08-26 INFLUENZA VACCINE [code = [facility] 03:05:42 INFLUENZA VACCINE] Hospital Future Scheduled 2022-08-26 COVID-19 VACCINE (#1) [facility] 03:05:42 [code = COVID-19 VACCINE Hos pital (#1)] Future Scheduled 2022-08-26 Pneumococcal Vaccine: [facility] 03:05:42 Pediatrics (0 to 5 Years) Ho spital and At-Risk Patients (6 to 64 Years) (1 - PCV) [code = Pneumococcal Vaccine: Pediatrics (0 to 5 Years) and At-Risk Patients (6 to 64 Years) (1 - PCV)] Future Scheduled 2022-08-26 Hepatitis C screening [facility] 03:05:42 (procedure) [code = Hospital [id number]] Future Scheduled 2022-08-26 Screening for malignant [facility] 03:05:42 neoplasm of cervix Hospital (procedure) [code = 010925898] Future Scheduled 2022-08-26 BREAST CANCER SCREENING [facility] 03:05:42 [code = BRE[facility]CER Hospit al SCREENING] Future Scheduled 2022-08-26 INFLUENZA VACCINE [code = [facility] 03:05:42 INFLUENZA VACCINE] Hospital Future Scheduled 2022-08-05 COVID-19 VACCINE (#1) [facility] 09:36:51 [code = COVID-19 VACCINE Hos pital (#1)] Future Scheduled 2022-08-05 Pneumococcal Vaccine: [facility] 09:36:51 Pediatrics (0 to 5 Years) Ho spital and At-Risk Patients (6 to 64 Years) (1 - PCV) [code = Pneumococcal Vaccine: Pediatrics (0 to 5 Years) and At-Risk Patients (6 to 64 Years) (1 - PCV)] Future Scheduled 2022-08-05 Hepatitis C screening [facility] 09:36:51 (procedure) [code = Hospital [id number]] Future Scheduled 2022-08-05 Screening for malignant [facility] 09:36:51 neoplasm of cervix Hospital (procedure) [code = 191409737] Future Scheduled 2022-08-05 BREAST CANCER SCREENING [facility] 09:36:51 [code = BREAST CANCER Hospit al SCREENING] Future Scheduled 2022-08-05 INFLUENZA VACCINE [code = [facility] 09:36:51 INFLUENZA VACCINE] Hospital Future Scheduled 2022-08-05 COVID-19 VACCINE (#1) [facility] 09:36:51 [code = COVID-19 VACCINE Hos pital (#1)] Future Scheduled 2022-08-05 Pneumococcal Vaccine: [facility] 09:36:51 Pediatrics (0 to 5 Years) Ho spital and At-Risk Patients (6 to 64 Years) (1 - PCV) [code = Pneumococcal Vaccine: Pediatrics (0 to 5 Years) and At-Risk Patients (6 to 64 Years) (1 - PCV)] Future Scheduled 2022-08-05 Hepatitis C screening [facility] 09:36:51 (procedure) [code = Hospital [id number]] Future Scheduled 2022-08-05 Screening for malignant [facility] 09:36:51 neoplasm of cervix Hospital (procedure) [code = 963564371] Future Scheduled 2022-08-05 BREAST CANCER SCREENING [facility] 09:36:51 [code = BREAST CANCER Hospit al SCREENING] Future Scheduled 2022-08-05 INFLUENZA VACCINE [code = [facility] 09:36:51 INFLUENZA VACCINE] Hospital Future Scheduled 2022-06-21 COVID-19 VACCINE (#1) [facility] 14:08:30 [code = COVID-19 VACCINE Hos pital (#1)] Future Scheduled 2022-06-21 Pneumococcal Vaccine: [facility] 14:08:30 Pediatrics (0 to 5 Years) Ho spital and At-Risk Patients (6 to 64 Years) (1 - PCV) [code = Pneumococcal Vaccine: Pediatrics (0 to 5 Years) and At-Risk Patients (6 to 64 Years) (1 - PCV)] Future Scheduled 2022-06-21 Hepatitis C screening [facility] 14:08:30 (procedure) [code = Hospital [id number]] Future Scheduled 2022-06-21 Screening for malignant [facility] 14:08:30 neoplasm of cervix Hospital (procedure) [code = 765615252] Future Scheduled 2022-06-21 BREAST CANCER SCREENING [facility] 14:08:30 [code = BREAST [facility]CER Hospit al SCREENING] Future Scheduled 2022-06-21 INFLUENZA VACCINE [code = [facility] 14:08:30 INFLUENZA VACCINE] Hospital Future Scheduled 2022-06-21 COVID-19 VACCINE (#1) [facility] 14:08:30 [code = COVID-19 VACCINE Hos pital (#1)] Future Scheduled 2022-06-21 Pneumococcal Vaccine: [facility] 14:08:30 Pediatrics (0 to 5 Years) Ho spital and At-Risk Patients (6 to 64 Years) (1 - PCV) [code = Pneumococcal Vaccine: Pediatrics (0 to 5 Years) and At-Risk Patients (6 to 64 Years) (1 - PCV)] Future Scheduled 2022-06-21 Hepatitis C screening [facility] 14:08:30 (procedure) [code = Hospital [id number]] Future Scheduled 2022-06-21 Screening for malignant [facility] 14:08:30 neoplasm of cervix Hospital (procedure) [code = 809692318] Future Scheduled 2022-06-21 BREAST CANCER SCREENING [facility] 14:08:30 [code = BREAST [facility]CER Hospit al SCREENING] Future Scheduled 2022-06-21 INFLUENZA VACCINE [code = [facility] 14:08:30 INFLUENZA VACCINE] Hospital Future Scheduled 2022-06-17 COVID-19 VACCINE (#1) [facility] 14:18:23 [code = COVID-19 VACCINE Hos pital (#1)] Future Scheduled 2022-06-17 Pneumococcal Vaccine: [facility] 14:18:23 Pediatrics (0 to 5 Years) Ho spital and At-Risk Patients (6 to 64 Years) (1 - PCV) [code = Pneumococcal Vaccine: Pediatrics (0 to 5 Years) and At-Risk Patients (6 to 64 Years) (1 - PCV)] Future Scheduled 2022-06-17 Hepatitis C screening [facility] 14:18:23 (procedure) [code = Hospital [id number]] Future Scheduled 2022-06-17 Screening for malignant [facility] 14:18:23 neoplasm of cervix Hospital (procedure) [code = 481552962] Future Scheduled 2022-06-17 BREAST CANCER SCREENING [facility] 14:18:23 [code = BREAST CANCER Hospit al SCREENING] Future Scheduled 2022-06-17 INFLUENZA VACCINE [code = [facility] 14:18:23 INFLUENZA VACCINE] Hospital Future Scheduled 2022-05-20 COVID-19 VACCINE (#1) [facility] 06:48:16 [code = COVID-19 VACCINE Hos pital (#1)] Future Scheduled 2022-05-20 Pneumococcal Vaccine: [facility] 06:48:16 Pediatrics (0 to 5 Years) Ho spital and At-Risk Patients (6 to 64 Years) (1 - PCV) [code = Pneumococcal Vaccine: Pediatrics (0 to 5 Years) and At-Risk Patients (6 to 64 Years) (1 - PCV)] Future Scheduled 2022-05-20 Hepatitis C screening [facility] 06:48:16 (procedure) [code = Hospital [id number]] Future Scheduled 2022-05-20 Screening for malignant [facility] 06:48:16 neoplasm of cervix Hospital (procedure) [code = 830952649] Future Scheduled 2022-05-20 BREAST CANCER SCREENING [facility] 06:48:16 [code = BREAST CANCER Hospit al SCREENING] Future Scheduled 2022-05-20 INFLUENZA VACCINE [code = [facility] 06:48:16 INFLUENZA VACCINE] Hospital Future Scheduled 2022-05-20 COVID-19 VACCINE (#1) [facility] 06:48:16 [code = COVID-19 VACCINE Hos pital (#1)] Future Scheduled 2022-05-20 Pneumococcal Vaccine: [facility] 06:48:16 Pediatrics (0 to 5 Years) Ho spital and At-Risk Patients (6 to 64 Years) (1 - PCV) [code = Pneumococcal Vaccine: Pediatrics (0 to 5 Years) and At-Risk Patients (6 to 64 Years) (1 - PCV)] Future Scheduled 2022-05-20 Hepatitis C screening [facility] 06:48:16 (procedure) [code = Hospital [id number]] Future Scheduled 2022-05-20 Screening for malignant [facility] 06:48:16 neoplasm of cervix Hospital (procedure) [code = 156439108] Future Scheduled 2022-05-20 BREAST CANCER SCREENING [facility] 06:48:16 [code = BREAST CANCER Hospit al SCREENING] Future Scheduled 2022-05-20 INFLUENZA VACCINE [code = [facility] 06:48:16 INFLUENZA VACCINE] Hospital Future Scheduled 2022-04-16 HEPATITIS B VACCINES (1 [facility] 11:13:19 of 3 - 3-dose series) Hospit al [code = HEPATITIS B VACCINES (1 of 3 - 3-dose series)] Future Scheduled 2022-04-16 COVID-19 VACCINE (#1) [facility] 11:13:19 [code = COVID-19 VACCINE Hos pital (#1)] Future Scheduled 2022-04-16 Pneumococcal Vaccine: [facility] 11:13:19 Pediatrics (0 to 5 Years) Ho spital and At-Risk Patients (6 to 64 Years) (1 - PCV) [code = Pneumococcal Vaccine: Pediatrics (0 to 5 Years) and At-Risk Patients (6 to 64 Years) (1 - PCV)] Future Scheduled 2022-04-16 Hepatitis C screening [facility] 11:13:19 (procedure) [code = Hospital 521916969] Future Scheduled 2022-04-16 Screening for malignant [facility] 11:13:19 neoplasm of cervix Hospital (procedure) [code = 243120827] Future Scheduled 2022-04-16 BREAST CANCER SCREENING [facility] 11:13:19 [code = BREAST CANCER Hospit al SCREENING] Future Scheduled 2022-04-16 INFLUENZA VACCINE [code = [facility] 11:13:19 INFLUENZA VACCINE] Hospital Future Scheduled 2022-04-16 HEPATITIS B VACCINES (1 [facility] 11:13:19 of 3 - 3-dose series) Hospit al [code = HEPATITIS B VACCINES (1 of 3 - 3-dose series)] Future Scheduled 2022-04-16 COVID-19 VACCINE (#1) [facility] 11:13:19 [code = COVID-19 VACCINE Hos pital (#1)] Future Scheduled 2022-04-16 Pneumococcal Vaccine: [facility] 11:13:19 Pediatrics (0 to 5 Years) Ho spital and At-Risk Patients (6 to 64 Years) (1 - PCV) [code = Pneumococcal Vaccine: Pediatrics (0 to 5 Years) and At-Risk Patients (6 to 64 Years) (1 - PCV)] Future Scheduled 2022-04-16 Hepatitis C screening [facility] 11:13:19 (procedure) [code = Hospital 341723258] Future Scheduled 2022-04-16 Screening for malignant [facility] 11:13:19 neoplasm of cervix Hospital (procedure) [code = 619046178] Future Scheduled 2022-04-16 BREAST CANCER SCREENING [facility] 11:13:19 [code = BREAST CANCER Hospit al SCREENING] Future Scheduled 2022-04-16 INFLUENZA VACCINE [code = [facility] 11:13:19 INFLUENZA VACCINE] Hospital Future Scheduled 2022-02-23 IMM Influenza Seasonal H [...] yrs)] Future Scheduled 2022-01-25 HEPATITIS B VACCINES (1 [facility] 19:24:17 of 3 - 3-dose series) Hospit al [code = HEPATITIS B VACCINES (1 of 3 - 3-dose series)] Future Scheduled 2022-01-25 COVID-19 VACCINE (#1) [facility] 19:24:17 [code = COVID-19 VACCINE Hos pital (#1)] Future Scheduled 2022-01-25 Pneumococcal Vaccine: [facility] 19:24:17 Pediatrics (0 to 5 Years) Ho spital and At-Risk Patients (6 to 64 Years) (1 - PCV) [code = Pneumococcal Vaccine: Pediatrics (0 to 5 Years) and At-Risk Patients (6 to 64 Years) (1 - PCV)] Future Scheduled 2022-01-25 Hepatitis C screening [facility] 19:24:17 (procedure) [code = Hospital 494516366] Future Scheduled 2022-01-25 Screening for malignant [facility] 19:24:17 neoplasm of cervix Hospital (procedure) [code = 817619784] Future Scheduled 2022-01-25 BREAST CANCER SCREENING [facility] 19:24:17 [code = BREAST CANCER Hospit al SCREENING] Future Scheduled 2022-01-25 INFLUENZA VACCINE [code = [facility] 19:24:17 INFLUENZA VACCINE] Hospital Future Scheduled 2019 Breast Cancer Scrn Harri [...] Scrn (Yearly)] Future Scheduled 2009 Screening for malignant [facility] 00:00:00 neoplasm of cervix (procedure) [code = 083324992] Future Scheduled 2009 Screening for malignant [facility] 00:00:00 neoplasm of cervix (procedure) [code = 070996263] Future Scheduled 2009 Screening for malignant [facility] 00:00:00 neoplasm of cervix (procedure) [code = 405549106] Future Scheduled 2009 Screening for malignant [facility] 00:00:00 neoplasm of cervix (procedure) [code = 170661766] Future Scheduled 2009 Screening for malignant [facility] 00:00:00 neoplasm of cervix (procedure) [code = 921235816] Future Scheduled 2009 Screening for malignant [facility] 00:00:00 neoplasm of cervix (procedure) [code = 088724483] Future Scheduled 2009 Screening for malignant [facility] 00:00:00 neoplasm of cervix (procedure) [code = 681604889] Future Scheduled 2009 Screening for malignant [facility] 00:00:00 neoplasm of cervix (procedure) [code = 185315243] Future Scheduled 2009 Screening for malignant [facility] 00:00:00 neoplasm of cervix (procedure) [code = 157083919] Future Scheduled 2009 Screening for malignant [facility] 00:00:00 neoplasm of cervix (procedure) [code = 959051278] Future Scheduled 2009 Screening for malignant [facility] 00:00:00 neoplasm of cervix (procedure) [code = 499645427] Future Scheduled 2009 Screening for malignant [facility] 00:00:00 neoplasm of cervix (procedure) [code = 601477340] Future Scheduled 2009 Screening for malignant [facility] 00:00:00 neoplasm of cervix (procedure) [code = 322239721] Future Scheduled 2009 Screening for malignant [facility] 00:00:00 neoplasm of cervix (procedure) [code = 737204744] Future Scheduled 2009 Screening for malignant [facility] 00:00:00 neoplasm of cervix (procedure) [code = 857338031] Future Scheduled 2009 Screening for malignant [facility] 00:00:00 neoplasm of cervix (procedure) [code = 384440055] Future Scheduled 2009 Screening for malignant [facility] 00:00:00 neoplasm of cervix (procedure) [code = 459488065] Future Scheduled 2009 Screening for malignant [facility] 00:00:00 neoplasm of cervix (procedure) [code = 482187975] Future Scheduled 2000 Screening for malignant [facility] Test 00:00:00 neoplasm of cervix [facility] (procedure) [code = 201873903] Future Scheduled 1997 HEPATITIS [facility]CRE[facility] [code = HEPATITIS C [facility] Center SCREENING] Future Scheduled 1994 Human immunodeficiency [facility] screening [facility] (procedure) [code = 139897601] Future Scheduled [address] [facility] Test 00:00:00 Counseling and Screening Med [facility] (12+) [code = Tobacco Cessation Counseling and Screening (12+)] Future Scheduled 1979 COVID-19 Vaccine (#1) Bravo [...] COVID-19 Vaccine (#1)] Future Scheduled 1979 COVID-19 VACCINE (#1) [facility] 00:[facility]:00 [code = COVID-19 VACCINE Med [facility] (#1)] Goal Plan of Care Note [code = 67066-8] Goal Plan of Care Note [code = 94444-8] Goal Plan of Care Note [code = 61395-2] Goal Plan of Care Note [code = 90023-7] Goal Plan of Care Note [code = 74098-1] Goal Plan of Care Note [code = 71862-7] Goal Plan of Care Note [code = 19626-0] Goal Plan of Care Note [code = 46622-9] Goal Plan of Care Note [code = 40887-6] Goal Plan of Care Note [code = 09494-2] Goal Plan of Care Note [code = 99695-0] Goal Plan of Care Note [code = 71735-0] Goal Plan of Care Note [code = 91668-3] Goal Plan of Care Note [code = 61125-0] Goal Plan of Care Note [code = 22275-4] Goal Plan of Care Note [code = 26654-7] Goal Plan of Care Note [code = 33901-7] Goal Plan of Care Note [code = 47062-0] Goal Plan of Care Note [code = 91762-8] Goal Plan of Care Note [code = 99758-3] Goal Plan of Care Note [code = 96648-1] Goal Plan of Care Note [code = 81740-8] Goal Plan of Care Note [code = 55835-5] Goal Plan of Care Note [code = 15781-6] Goal Plan of Care Note [code = 40290-7] Goal Plan of Care Note [code = 87113-4] Goal Plan of Care Note [code = 17931-9] Goal Plan of Care Note [code = 37264-1] Goal Plan of Care Note [code = 97199-6] Goal Plan of Care Note [code = 17272-5] Goal Plan of Care Note [code = 32498-9] Goal Plan of Care Note [code = 98844-7] Goal Plan of Care Note [code = 37219-7] Goal Plan of Care Note [code = 58073-2] Goal Plan of Care Note [code = 95066-2] Goal Plan of Care Note [code = 26537-0] Goal Plan of Care Note [code = 08499-0] Goal Plan of Care Note [code = 61213-5] Goal Plan of Care Note [code = 74356-9] Goal Plan of Care Note [code = 38007-7] Goal Plan of Care Note [code = 44543-7] Goal Plan of Care Note [code = 44414-5] Goal Plan of Care Note [code = 33612-0] Goal Plan of Care Note [code = 00870-8] Goal Plan of Care Note [code = 71965-7] Goal Plan of Care Note [code = 76444-3] Goal Plan of Care Note [code = 05966-4] Goal Plan of Care Note [code = 17379-3] Goal Plan of Care Note [code = 09888-9] Goal Plan of Care Note [code = 69142-4] Goal Plan of Care Note [code = 85777-4] Goal Plan of Care Note [code = 28572-4] Goal Plan of Care Note [code = 10653-1] Goal Plan of Care Note [code = 53935-7] Goal Plan of Care Note [code = 88281-0] Goal Plan of Care Note [code = 38869-5] Goal Plan of Care Note [code = 59500-1] Goal Plan of Care Note [code = 39067-7] Goal Plan of Care Note [code = 29320-0] Goal Plan of Care Note [code = 25024-3] Goal Plan of Care Note [code = 69430-3] Goal Plan of Care Note [code = 92711-2] Goal Plan of Care Note [code = 13186-5] Goal Plan of Care Note [code = 82366-8] Goal Plan of Care Note [code = 86592-7] Goal Plan of Care Note [code = 65320-3] Goal Plan of Care Note [code = 98381-7] Goal Plan of Care Note [code = 52063-0] Goal Plan of Care Note [code = 61066-6] Goal Plan of Care Note [code = 29330-6] Goal Plan of Care Note [code = 84403-3] Goal Plan of Care Note [code = 06455-6] Goal Plan of Care Note [code = 73503-2] Goal Plan of Care Note [code = 17372-5] Goal Plan of Care Note [code = 33941-2] Encounters Start End Encounter Admission Attending Care Care Encounter Source Date/Time Date/Time Type Type Clinicians Facility Department ID 2022-12-22 2022-12-24 [facility] Aiden Palmer [facility] [id number] [facility] 23:20[facility] 17:03:00 Encounter Francisca Alston [facility], [facility] 2022-12-22 2022-12-24 Inpatient UR [facility] Neurology [id number] SLE 23:20:00 17:03:00 [facility] 2022-12-23 2022-12-23 Orders [facility] [id number] 00:00:00 00:00:00 Only [facility] 2022-12-23 2022-12-23 Travel [facility] [id number] [facility] 00:00:00 [facility] 2022-11-09 2022-11-24 Refill Les, NEURO 1.2.840.114 [id number] [facility] 00:00:00 22:30:42 Vishnu PSYCH 350.1.13.43 He alth [place] .2.7.2.6869 [id number] 3449-06-15 2022-11-07 Emergency [facility] ERT [id number] Univers 15:45:00 20:54:00 JAYDA [facility] 2022-11-07 2022-11-[address] [facility] 1.2.761.011 [id number] Univers 15:45:00 20:54:00 Jayda Barnes FLORINA 350.1.13.10 i ty [facility] 4.2.7.[facility] [id number] [place] 403514 [place] 2022-10-28 2022-10-28 [facility] [id number] Univers 14:07:00 17:10:00 JAKE guzman [facility] 2022-10-28 2022-10-28 Emergency [facility] 1.2.712.282 [id number] Univers 14:07:00 17:10:00 Jake HEATON 350.1.13.10 i ty of Angel ROSS 4.2.7.2.686 [facility] [id number] [place] 403514 [place] 2022-10-02 2022-10-17 Refvictorina Palmer, NEURO 1.2.840.114 [id number] [place] 00:00:00 22:32:39 Vishnu PSYCH 350.1.13.43 He alth [place] .2.7.2.6869 [id number] 4086-05-01 2022-09-23 Orders Doctor HELADIO 1.2.840.114 [id number] Univers 00:00:00 00:00:00 Only Unassigned, BONIFACIO 350.1.13.10 ity of [facility] 4.2.7.2.686 [facility] [id number] [facility] [address] 2022-09-13 2022-09-13 Outpatient [facility] [id number] [place] 08:44:31 08:44:31 [id number] F Bonesteel 2022-08-09 2022-08-09 Outpatient [facility] Ismael 11:12:06 11:12:06 [id number] F Bonesteel 2022-08-05 2022-08-05 Telemedici Les, NEURO 1.2.840.114 [id number] [place] 09:40:00 13:28:34 ne Vishnu PSYCH 350.1.13.43 alth CENTER .2.7.2.6869 [id number] 5319-03-02 2022-07-25 Outpatient [facility] Ismael 16:58:59 16:58:59 [id number] F Bonesteel 2022-07-08 2022-07-08 Telemedici Palmer, NEURO 1.2.840.114 [id number] [place] 09:40:00 15:26:27 ne Vishnu PSYCH 350.1.13.43 He alth CENTER .2.7.2.6869 [id number] 6111-01-27 2022-06-24 [facility] Frazier MARSHA DONNA 1.2.84 0.114 [id number] [place] 18:23:00 16:12:00 Leigh Eastman [facility] 350.1.13.43 Critical access hospital .2.7.2.6869 Jazzy Franco [id number] Sugey Morales 2022-06-21 2022-06-24 [facility] LARSON DONNA 1.2.84 0.114 [id number] [place] 18:23:00 16:12:00 Leigh Eastman GENERAL 350.1.13.43 Critical access hospital .2.7.2.6869 Jazzy Franco [id number] Sugey Morales 2022-06-21 2022-06-21 Outpatient [facility] Ismael 14:08:27 14:08:27 [id number] F Bonesteel 2022-06-17 2022-06-17 Outpatient [facility] Ismael 09:35:27 09:35:27 [id number] F Bonesteel 2022-06-17 2022-06-17 MASOUD Ortez .2.840.114 [id number] [facility] 00:00:00 00:00:00 [facility] 350.1.13.10 i ty of [facility] 4.2.7.2.[place] [id number] [facility] [address] 2022-06-10 2022-06-10 Outpatient [facility] Ismael 15:07:29 15:07:29 [id number] F Sim 2022-06-10 2022-06-10 Orders Doctor HELADIO 1.2.840.[id number] [place] [address] 00:00:00 00:00:00 Only Unassigned, BONIFACIO 350.1.13.10 ity [facility] 4.2.7.2.686 T[place] as [id number] [facility] [address] 2022-06-10 2022-06-10 Outpatient [id number]- [id number] w32sx7-d 00:00:00 00:00:00 Visit d03f-3xr7 06b-4fe2-b -u0o6-g0q 2h2-v9qkkd egf68ip5q 62df9e 2022-05-31 2022-05-31 Emergency X [facility] ERT [id number] Univers 15:07:00 18:42:[address] ity of [facility] 2022-05-31 2022-05-31 Emergency [facility] 1.2.840.114 [id number] Univers 15:07:00 18:42:00 Genia [facility] 350.1.13.10 ity of [place] [id number] [facility] [address] 2022-04-16 2022-04-16 Outpatient [facility] Ismael 11:13:16 11:13:16 [id number] F Sim 2022-04-16 2022-04-16 Outpatient [id number]- [id number] c9f81h-2 00:00:00 00:00:00 Visit 4br2-748j aa1-478a-b -t0h9-668 8s3-6791d1 2j8y270zo e604be 2022-04-09 2022-04-09 Outpatient [facility] Ismael 11:38:52 11:38:52 [id number] F Sim 2022-04-09 2022-04-09 Outpatient 60ew9e8j- [id number] dm9s9t-8 00:00:00 00:00:00 Visit 482a-414e 82a-414e-9 -9408-24e 408-24e7e0 3t399000t 81175y 2022-04-03 2022-04-03 Outpatient [id number]- [id number] 7f 8253s6-3 00:00:00 00:00:00 Visit 0953-4c87 953-4c87-a -n9y7-5r5 9y6-9z4t86 f04w9ij3q f2fe2a 2022-03-22 2022-03-22 Outpatient [id number]- [id number] 6lo134-z 00:00:00 00:00:00 Visit s8s6-331k 8y6-498l-2 -81l6-225 8g6-3852m1 3o26f542a 9p231s 2020-09-07 2020-09-07 Outpatient [facility] [id number] [place] 00:00:00 00:00:00 620 Method i 2020-09-07 2020-09-07 Outpatient [facility] [id number] [place] 00:00:00 00:00:00 109 Method i 2020-09-07 2020-09-07 Outpatient [facility] [id number] [place] 00:00:00 00:00:00 335 Method i 2020-09-07 2020-09-07 Outpatient [facility] [id number] [place] 00:00:00 00:00:[address] 2020-05-30 2020-05-30 Emergency [facility] 1.2.096.298 [id number] [facility] 16:01:00 23:26:00 Janene Heaton 350.1.13.10 i gilberto of [place] 4.2.7.2.686 [facility] [id number] [facility] jani [address] 2020-05-30 2020-05-30 Emergency [facility] [id number] [facility] 16:01:00 23:26:00 ity of [facility] 2020-05-30 2020-05-30 Emergency [facility] 1.2.557.530 [id number] 16:01:00 23:26:00 Janene Heaton 350.1.13.10 [place] 4.2.7.2.686 [place] [id number] 084 Results Test Description Test Time Test Comments Results Result Comments Source POC-Glucose meter 2022-12-24 08:25:07 Test Item Value Reference Range Interpretation Comme nts POC-Glucose Meter (test code = 123 mg/dL 70-110 H : TESTED AT [facility] [address] 15[address]) [facility], 770 30: Grinder Set Up Operator Universal/Techni kai ID = [id number] for MaximJerryValerie Lab Interpretation (test code = Abnormal 96271-4) [facility] [id number] 08:25:07 Test Item Value Reference Range Interpretation Comments POC-GLUCOSE METER 123 mg/dL 70-110 H : TESTED A T [facility] [address] (BEAKER) (test code = [address] R [facility], 1538) [address]: Grinder Set Up Operator Universal/Techni kai ID = [id number] for Carlos EnriqueKellieJerry, Valerie Urinalysis w/Microscopic + Reflex to [id number] 05:01:13 Test Item Value Reference Range Interpretation Comments Color, UA (test Yellow code = 5778-6) Clarity, UA (test Clear code = 5767-9) Specific [place], 1.014 1.001-1.035 UA (test code = 5811-5) pH, UA (test code 7.0 5.0-8.0 = 5803-2) Protein, UA (test Negative Negative code = 67952-8) Glucose, UA (test Negative Negative code = 365) Ketones, UA (test Negative Negative code = 2514-8) Bilirubin, UA Negative Negative (test code = 79876-4) Blood, UA (test Negative Negative code = 55756-7) Nitrite, UA (test Negative Negative code = 5802-4) Leukocytes, UA Negative Negative (test code = 5799-2) Urobilinogen, UA 0.2 0.2-1.0 (test code = 67646-2) RBC, UA (test 2 See_Comment [Automated me ssage] code = 39291-4) [facility] result transmit justino reference range : /HPF. The refer ence range was not u sed to interpret th is result as normal/abnormal . WBC, UA (test See_Comment [Automated me ssage] code = 5821-4) The system [facility] generated this result transmit justino reference range : /HPF. The refer ence range was not u sed to interpret th is result as normal/abnormal . Bacteria, UA Rare (test code = 70805-9) Mucus (test code Rare = 8247-9) Squam Epithel, UA 1 See_Comment [Automate d message] (test code = The system [facility] h 82084-3) generated this result transmit justino reference range : /HPF. The refer ence range was not u sed to interpret th is result as normal/abnormal . Yeast (test code Moderate BOTH HYPHAE & = 77238-5) BUDDING YEAST PRESENT Specimen Source (test code = 2795) JASMEET (test code = Grinder Set Up Operator Universal ID - JASMEET) [auto]Grinder Set Up Operator Universal ID - tech [facility] REFLEX URINE [id number] 05:01:13 Test Item Value Reference Range Interpretation Comments COLOR (BEAKER) (test code Yellow = 470) CLARITY (BEAKER) (test Clear code = 469) SPECIFIC GRAVITY UA 1.014 1.001-1.035 (BEAKER) (test code = 468) PH UA (BEAKER) (test code 7.0 5.0-8.0 = 467) PROTEIN UA (BEAKER) (test Negative Negative code = 464) GLUCOSE UA (BEAKER) (test Negative Negative code = 365) KETONES UA (BEAKER) (test Negative Negative code = 371) BILIRUBIN UA (BEAKER) Negative Negative (test code = 462) BLOOD UA (BEAKER) (test Negative Negative code = 461) NITRITE UA (BEAKER) (test Negative Negative code = 465) LEUKOCYTE ESTERASE UA Negative Negative (BEAKER) (test code = 466) UROBILINOGEN UA (BEAKER) 0.2 0.2-1.0 (test code = 463) RBC UA (BEAKER) (test 2 /HPF code = 519) WBC UA (BEAKER) (test < /HPF code = 520) BACTERIA (BEAKER) (test Rare code = 517) MUCUS (BEAKER) (test code Rare = 1574) SQUAMOUS EPITHELIAL 1 /HPF (BEAKER) (test code = 516) YEAST (BEAKER) (test code Moderate TOO TH HYPHAE & = 1585) BUDDING YEAST PRESENT SOURCE(BEAKER) (test code = 2795) Grinder Set Up Operator Universal ID - [auto]Grinder Set Up Operator Universal ID - techRapid drug screen, [id number] 04:40:29 Test Item Value Reference Range Interpretation Comments Barbiturate Screen Positive Negative A (test code = 67078-7) Benzodiazepine Screen Negative Negative (test code = 48438-3) Cocaine (Metab.) Negative Negative Screen (test code = 3397-7) Methadone Screen (test Negative Negative code = 36737-1) Opiate Screen (test Negative Negative code = 91291-6) Cannabinoid Screen Negative Negative (test code = 25795-7) Amph/Methamph Screen Negative Negative (test code = 01581-3) Phencyclidine Screen Negative Negative (test code = 77991-6) pH, UA (test code = 7.0 5.0-8.0 5803-2) JASMEET (test code = JASMEET) DRUG CUTOFF CONC.Cocaine 300 ng/mL Cannabinoid 50 ng/mLBenzodiazepine 200 ng/mLBarbiturate 200 ng/mLPhencyclidine 25 ng/mLOpiate 300 ng/mLMethadone 300 ng/mLAmphetamine/ 1000 ng/mL Methamphetamine This assay provides an unconfirmed qualitative test result for the clinical management of patients in emergency situations. Chain of custody not maintained. Some mzbr-hzq-cadpbot medications, as well as adulterants, may cause inaccurate results. Clinical correlation should be applied. A more comprehensive drug screen or confirmation of a detected drug may be performed upon request.Grinder Set Up Operator Universal ID - [auto]Grinder Set Up Operator Universal ID - ADMIN Lab Interpretation Abnormal (test code = 79558-1) [facility] [id number] 04:40:29 Test Item Value Reference Range Interpretation Comments BARBITURATE URINE (BEAKER) (test Positive Negative A code = 725) BENZODIAZEPINE SCREEN URINE (BEAKER) Negative Negative (test code = 726) COCAINE (METAB.) SCREEN (BEAKER) Negative Negative (test code = 1164) METHADONE SCREEN (BEAKER) (test code Negative Negative = 1436) OPIATE SCREEN URINE (BEAKER) (test Negative Negative code = 734) CANNABINOID SCREEN URINE (BEAKER) Negative Negative (test code = 727) AMPH/METHAMPH SCREEN (BEAKER) (test Negative Negative code = 1438) PHENCYCLIDINE SCREEN URINE (BEAKER) Negative Negative (test code = 608) PH UA (BEAKER) (test code = 467) 7.0 5.0-8.0 DRUG CUTOFF CONC.Cocaine 300 ng/mL Cannabinoid 50 ng/mLBenzodiazepine 200 ng/mLBarbiturate 200 ng/mLPhencyclidine 25 ng/mLOpiate 300 ng/mLMethadone 300 ng/mLAmphetamine/ 1000 ng/mL MethamphetamineThis assay provides an unconfirmed qualitative test result for the clinical management of patients in emergency situations. Chain of custody not maintained. Some edom-sow-bskbfdt medications, as well as adulterants, may cause inaccurate results. Clinical correlation should be applied. A more comprehensive drug screen or confirmation of a detected drug may be performed upon request.Grinder Set Up Operator Universal ID - [auto]Grinder Set Up Operator Universal ID - ADMINBASIC METABOLIC [id number] 04:36:32 Test Item Value Reference Range Interpretation Comments SODIUM (BEAKER) 134 meq/L 136-145 L (test code = 381) POTASSIUM 3.9 meq/L 3.5-5.1 (BEAKER) (test code = 379) CHLORIDE (BEAKER) 101 meq/L 98-107 (test code = 382) CO2 (BEAKER) 24 meq/L 22-29 (test code = 355) BLOOD UREA 5 mg/dL 7-21 L NITROGEN (BEAKER) (test code = 354) CREATININE 0.61 mg/dL 0.57-1.25 (BEAKER) (test code = 358) GLUCOSE RANDOM 91 mg/dL 70-105 (BEAKER) (test code = 652) CALCIUM (BEAKER) 8.4 mg/dL 8.4-10.2 (test code = 697) EGFR (BEAKER) 114 Interpretatio n of eGFR (test code = mL/min/1.73 values Stage De scription 1092) sq m Result G1 Maria l or high >=90 G2 Mildly decreased 60-89 G3a Mildl y to moderately 45-5 9 G3b Moderately to s everely 30-44 G4 Severl y decreased 15-29 G5 Kidney failure <15Reported eGF R is based on the CKD-EPI 2020 equation that d oes not use a race coefficientEsti mated GFR is not as accur ate as Creatinine Christine ramírez in predicting glom erular filtration rate . Estimated GFR is not appl icable for dialysis patien ts Grinder Set Up Operator Universal ID - ADMINCBC W/PLT COUNT & AUTO [id number] 04:10:20 Test Item Value Reference Range Interpretation Comments WHITE BLOOD CELL COUNT (BEAKER) 6.3 K/ L 3.5-10.5 (test code = 775) RED BLOOD CELL COUNT (BEAKER) 4.06 M/ L 3.93-5.22 (test code = 761) HEMOGLOBIN (BEAKER) (test code = 11.8 GM/DL 11.2-15.7 410) HEMATOCRIT (BEAKER) (test code = 35.3 % 34.1-44.9 411) MEAN CORPUSCULAR VOLUME (BEAKER) 87 fL 79-95 (test code = 753) MEAN CORPUSCULAR HEMOGLOBIN 29.1 pg 25.6-32.2 (BEAKER) (test code = 751) MEAN CORPUSCULAR HEMOGLOBIN CONC 33.4 GM/DL 32.2-35.5 (BEAKER) (test code = 752) RED CELL DISTRIBUTION WIDTH 13.0 % 11.7-14.4 (BEAKER) (test code = 412) PLATELET COUNT (BEAKER) (test 193 K/CU MM 150-450 code = 756) MEAN PLATELET VOLUME (BEAKER) 9.8 fL 9.4-12.3 (test code = 754) NUCLEATED RED BLOOD CELLS 0 /100 WBC 0-0 (BEAKER) (test code = 413) NEUTROPHILS RELATIVE PERCENT 58 % (BEAKER) (test code = 429) LYMPHOCYTES RELATIVE PERCENT 34 % (BEAKER) (test code = 430) MONOCYTES RELATIVE PERCENT 6 % (BEAKER) (test code = 431) EOSINOPHILS RELATIVE PERCENT 1 % (BEAKER) (test code = 432) BASOPHILS RELATIVE PERCENT 1 % (BEAKER) (test code = 437) NEUTROPHILS ABSOLUTE COUNT 3.66 K/ L 1.56-6.13 (BEAKER) (test code = 670) LYMPHOCYTES ABSOLUTE COUNT 2.16 K/ L 1.18-3.74 (BEAKER) (test code = 414) MONOCYTES ABSOLUTE COUNT (BEAKER) 0.36 K/ L 0.24-0.36 (test code = 415) EOSINOPHILS ABSOLUTE COUNT 0.05 K/ L 0.04-0.36 (BEAKER) (test code = 416) BASOPHILS ABSOLUTE COUNT (BEAKER) 0.03 K/ L 0.01-0.08 (test code = 417) IMMATURE GRANULOCYTES-RELATIVE 0.20 % 0.00-1.00 PERCENT (BEAKER) (test code = 2801) POCT-GLUCOSE [id number] 22:54:54 Test Item Value Reference Range Interpretation Comments POC-GLUCOSE METER 98 mg/dL 70-110 : TESTED A T [facility] ([facility]) (test code = [facility], 1538) [address]: Grinder Set Up Operator Universal/Techni kai ID = [id number] for Soren , Nneoma POCT-GLUCOSE [id number] 18:31:33 Test Item Value Reference Range Interpretation Comments POC-GLUCOSE METER 126 mg/dL 70-110 H : TESTED A T [facility] ([facility]) (test code = [facility], 1538) [address]67[address]: Grinder Set Up Operator Universal/Techni kai ID = [id number] for Br itney (DivNmt, Dear HEMOGLOBIN [id number] 13:52:59 Test Item Value Reference Range Interpretation Comments HEMOGLOBIN A1C 4.7 % See_Comment [Automated m essage] ELECTROPHORESIS ([facility]) The system which (test code = 3811) generated this result transmitted ref erence range: <=5.6%. The reference range was not used to int erpret this result as normal/abnormal . "The A1c is measured using a NGSP-certified method. HbA1c value equal to or greater than 6.5% as thediagnosis cutoff for diabetes. An HbA1c value of 5.7- 6.4% indicates increased risk for diabetes (prediabetes)."Grinder Set Up Operator Universal ID - ADMOperator ID - ADMPOCT-GLUCOSE [id number] 13:41:44 Test Item Value Reference Range Interpretation Comments POC-GLUCOSE METER 126 mg/dL 70-110 H : TESTED A T [facility] ([facility]) (test code = [facility], 1538) 08155: Grinder Set Up Operator Universal/Techni kai ID = [id number] for Br itney (DivFlt, Dear [id number] 07:45:25 Test Item Value Reference Range Interpretation Comments ETHANOL (LUIS) (test code = 400) < mg/dL <=10 Grinder Set Up Operator Universal ID - AAHAMIDPOCT-GLUCOSE [id number] 06:13:52 Test Item Value Reference Range Interpretation Comments POC-GLUCOSE METER 80 mg/dL 70-110 : TESTED A T [facility] ([facility]) (test code = [place], 1538) 59165: Grinder Set Up Operator Universal/Techni kai ID = [id number] for Naomy Whyte HIGH SENSITIVITY TROPONIN [id number] 05:46:48 Test Item Value Reference Range Interpretation Comments HIGH SENSITIVITY TROPONIN I (test < pg/ml <=17 code = 0552033) Grinder Set Up Operator Universal ID - MARCKirstine PIPING DRAFTER STAT High Sensitivity Troponin-I results should be used in conjunction with other diagnostic information such as ECG, clinical observations and information, and patientsymptoms to aid in the diagnosis of IA. LACTIC ACID, [id number] 05:37:53 Test Item Value Reference Range Interpretation Comments LACTATE BLOOD VENOUS 1.00 mmol/L 0.50-2.00 Specime n slightly (2) ([employer]) (test hemolyzed code = 2872) Grinder Set Up Operator Universal ID - MARCOHIV-1 ANTIGEN WITH HIV-1/2 [id number] 02:10:47 Test Item Value Reference Range Interpretation Comments HIV-1 ANTIGEN WITH HIV 1\\T\\2 Nonreactive Nonreactive ANTIBODY (2) ([employer]) (test code = 2586) Grinder Set Up Operator Universal ID - ADMINT4, [id number] 01:46:41 Test Item Value Reference Range Interpretation Comments FREE T4 ([employer]) (test code = 655) 1.84 ng/dL 0.70-1.48 H Grinder Set Up Operator Universal ID - ADMINTSH/FREE T4 IF [id number] 01:14:47 Test Item Value Reference Range Interpretation Comments THYROID STIMULATING HORMONE 0.005 uIU/mL 0.350-4.940 L ([employer]) (test code = 772) Grinder Set Up Operator Universal ID - ADMINCOMPREHENSIVE METABOLIC [id number] 01:03:19 Test Item Value Reference Range Interpretation Comments TOTAL PROTEIN 6.4 gm/dL 6.0-8.3 ([employer]) (test code = 770) ALBUMIN (BEAKER) 3.2 g/dL 3.5-5.0 L (test code = 1145) ALKALINE 71 U/L 40-150 PHOSPHATASE (BEAKER) (test code = 346) BILIRUBIN TOTAL 0.5 mg/dL 0.2-1.2 (BEAKER) (test code = 377) SODIUM (BEAKER) 134 meq/L 136-145 L (test code = 381) POTASSIUM (BEAKER) 3.8 meq/L 3.5-5.1 (test code = 379) CHLORIDE (BEAKER) 101 meq/L 98-107 (test code = 382) CO2 (BEAKER) (test 23 meq/L 22-29 code = 355) BLOOD UREA 5 mg/dL 7-21 L NITROGEN (BEAKER) (test code = 354) CREATININE 0.62 mg/dL 0.57-1.25 (BEAKER) (test code = 358) GLUCOSE RANDOM 87 mg/dL 70-105 (BEAKER) (test code = 652) CALCIUM (BEAKER) 8.4 mg/dL 8.4-10.2 (test code = 697) AST (SGOT) 13 U/L 5-34 (BEAKER) (test code = 353) ALT (SGPT) < U/L 6-55 L (BEAKER) (test code = 347) EGFR (BEAKER) 113 Interpretatio n of eGFR (test code = 1092) mL/min/1.[address] age Description sq m Result G1 Maria l or high >=90 G2 Mildly decreased 60-89 G3a Mildl y to moderately 45-5 9 G3b Moderately to s everely 30-44 G4 Severl y decreased 15-29 G5 Kidney failure <15Reported eGF R is based on the CKD-EPI 2021 equation that d oes not use a race coefficientEsti mated GFR is not as accur ate as Creatinine Christine ramírez in predicting glom erular filtration rate . Estimated GFR is not appl icable for dialysis patien ts Grinder Set Up Operator Universal ID - ADMINLIPID [id number] 00:52:37 Test Item Value Reference Range Interpretation Comments TRIGLYCERIDES (BEAKER) (test code = 60 mg/dL 540) CHOLESTEROL (BEAKER) (test code = 107 mg/dL 631) HDL CHOLESTEROL (BEAKER) (test code 30 mg/dL = 976) LDL CHOLESTEROL CALCULATED (BEAKER) 65 mg/dL (test code = 633) Triglyceride Reference Range: Low Risk <150 Borderline 150-199 High Risk 200-499 Very High Risk >=500Cholesterol Reference Range: Low Risk <200 Borderline 200-239 High Risk >240HDL Cholesterol Reference Range: Low Risk >=60 High Risk <40LDL Cholesterol Reference Range: Optimal <100 Near Optimal 100-129 Borderline 130-159 High 160-189 Very High >=190 Grinder Set Up Operator Universal ID - [id number] 00:52:36 Test Item Value Reference Range Interpretation Comments MAGNESIUM (BEAKER) (test code = 1.9 mg/dL 1.6-2.6 627) Grinder Set Up Operator Universal ID - [id number] 00:52:36 Test Item Value Reference Range Interpretation Comments PHOSPHORUS (BEAKER) (test code = 3.6 mg/dL 2.3-4.7 604) Grinder Set Up Operator Universal ID - [id number] 00:39:57 Test Item Value Reference Range Interpretation Comments PARTIAL THROMBOPLASTIN TIME 30.1 seconds 22.5-36.0 (BEAKER) (test code = 760) PROTHROMBIN TIME/[id number] 00:39:19 Test Item Value Reference Range Interpretation Comments PROTIME (BEAKER) (test code = 14.6 seconds 11.9-14.2 H 759) INR (BEAKER) (test code = 370) 1.16 <=5.90 RECOMMENDED COUMADIN/WARFARIN INR THERAPY RANGESSTANDARD DOSE: 2.0 - 3.0 Includes: PROPHYLAXIS for venous thrombosis, systemic embolization; TREATMENT for venous thrombosis and/or pulmonary embolus.HIGH RISK: Target INR is 2.5-3.5 for patients with mechanical heart valves.CALCIUM, [id number] 00:34:23 Test Item Value Reference Range Interpretation Comments CALCIUM IONIZED (BEAKER) (test 1.10 mmol/L 1.12-1.27 L code = 698) PH, BLOOD (BEAKER) (test code = 7.43 7120) CBC W/PLT COUNT & AUTO [id number] 00:28:17 Test Item Value Reference Range Interpretation Comments WHITE BLOOD CELL COUNT (BEAKER) 5.2 K/ L 3.5-10.5 (test code = 775) RED BLOOD CELL COUNT (BEAKER) 3.90 M/ L 3.93-5.22 L (test code = 761) HEMOGLOBIN (BEAKER) (test code = 11.3 GM/DL 11.2-15.7 410) HEMATOCRIT (BEAKER) (test code = 34.2 % 34.1-44.9 411) MEAN CORPUSCULAR VOLUME (BEAKER) 88 fL 79-95 (test code = 753) MEAN CORPUSCULAR HEMOGLOBIN 29.0 pg 25.6-32.2 (BEAKER) (test code = 751) MEAN CORPUSCULAR HEMOGLOBIN CONC 33.0 GM/DL 32.2-35.5 (BEAKER) (test code = 752) RED CELL DISTRIBUTION WIDTH 12.9 % 11.7-14.4 (BEAKER) (test code = 412) PLATELET COUNT (BEAKER) (test 185 K/CU MM 150-450 code = 756) MEAN PLATELET VOLUME (BEAKER) 9.5 fL 9.4-12.3 (test code = 754) NUCLEATED RED BLOOD CELLS 0 /100 WBC 0-0 (BEAKER) (test code = 413) NEUTROPHILS RELATIVE PERCENT 54 % (BEAKER) (test code = 429) LYMPHOCYTES RELATIVE PERCENT 38 % (BEAKER) (test code = 430) MONOCYTES RELATIVE PERCENT 6 % (BEAKER) (test code = 431) EOSINOPHILS RELATIVE PERCENT 1 % (BEAKER) (test code = 432) BASOPHILS RELATIVE PERCENT 0 % (BEAKER) (test code = 437) NEUTROPHILS ABSOLUTE COUNT 2.80 K/ L 1.56-6.13 (BEAKER) (test code = 670) LYMPHOCYTES ABSOLUTE COUNT 1.95 K/ L 1.18-3.74 (BEAKER) (test code = 414) MONOCYTES ABSOLUTE COUNT (BEAKER) 0.32 K/ L 0.24-0.36 (test code = 415) EOSINOPHILS ABSOLUTE COUNT 0.06 K/ L 0.04-0.36 (BEAKER) (test code = 416) BASOPHILS ABSOLUTE COUNT (BEAKER) 0.02 K/ L 0.01-0.08 (test code = 417) IMMATURE GRANULOCYTES-RELATIVE 0.20 % 0.00-1.00 PERCENT (BEAKER) (test code = 2801) COMP. METABOLIC PANEL (60514)2022-11-07 22:06:17 Test Item Value Reference Range Interpretation Comments NA (test code = 139 mmol/L 135-145 4075418804) K (test code = 3.8 mmol/L 3.5-5.0 7085245758) CL (test code = 104 mmol/L 98-108 9686192754) CO2 TOTAL (test code = 26 mmol/L 23-31 4917319498) AGAP (test code = 9 2-16 0798226327) BUN (test code = 5 mg/dL 7-23 L 0485861529) GLUCOSE (test code = 100 mg/dL 70-110 1712977147) CREATININE (test code = 0.54 mg/dL 0.50-1.04 9723931053) TOTAL BILI (test code = 0.5 mg/dL 0.1-1.3 8487392539) CALCIUM (test code = 8.5 mg/dL 8.6-10.6 L 0284069936) T PROTEIN (test code = 6.6 g/dL 6.3-8.2 4184505097) ALBUMIN (test code = 3.5 g/dL 3.5-5.0 4448865992) ALK PHOS (test code = 77 U/L 34-122 9301246957) ALTv (test code = 14 U/L 5-35 2-6) AST(SGOT) (test code = 15 U/L 13-40 7710245392) eGFR (test code = 123.2 mL/min/1.73m2 2448807546) JASMEET (test code = JASMEET) Association of [...] tests). Lab Interpretation Abnormal (test code = 22368-0) [facility] 22:05:57 Test Item Value Reference Range Interpretation Comments LIPASE (test code = 5039252115) 21 U/L 0-220 Lab Interpretation (test code = Normal 42672-2) [facility] WITH [id number] 21:56:14 Test Item Value Reference Range Interpretation Comments WBC (test code = 8.45 See_Comment [Automated 9390-2) message] The sy stem which generated this result transmitted reference range : 4.30 - 11.10 10*3/?L. The reference range was not used to interpret this result as normal/abnormal . RBC (test code = 3.71 See_Comment L [Automated 006-8) message] The sy stem which generated this [...] (test code = 38.8 fL 39.0-49.9 L 15042-7) RDW-CV (test code = 11.7 % 12.0-15.5 L 788-0) PLT (test code = 176 See_Comment [Automated 777-3) message] The sy stem which generated this result transmitted reference range : 166 - 358 10*3/ ?L. The reference r fiona was not used to interpret this result as normal/abnormal . MPV (test code = 10.0 fL 9.5-12.9 98857-1) NRBC/100 WBC (test 0.0 See_Comment [Automat ed code = 8411754880) message] The system which generated this result transmitted reference range : 0.0 - 10.0 /100 WBCs. The refer ence range was not u sed to interpret th is result as normal/abnormal . NRBC x10^3 (test code See_Comment [Auto mated = 1142217216) message] The s ystem which generated this result transmitted reference range : 10*3/?L. The reference range was not used to interpret this result as normal/abnormal . GRAN MAT (NEUT) % 71.4 % (test code = 770-8) IMM GRAN % (test code 0.70 % = 3604845425) LYMPH % (test code = 22.8 % 736-9) MONO % (test code = 3.9 % 5905-5) EOS % (test code = 0.8 % 713-8) BASO % (test code = 0.4 % 706-2) GRAN MAT x10^3(ANC) 6.03 10*3/uL 1.88-7.09 (test code = 9736941672) IMM GRAN x10^3 (test 0.06 10*3/uL 0.00-0.06 code = 0558844771) LYMPH x10^3 (test code 1.93 10*3/uL 1.32-3.29 = 731-0) MONO x10^3 (test code 0.33 10*3/uL 0.33-0.92 = 742-7) EOS x10^3 (test code = 0.07 10*3/uL 0.03-0.39 711-2) BASO x10^3 (test code 0.03 10*3/uL 0.01-0.07 = 704-7) Lab Interpretation Abnormal (test code = 68914-1) [facility] [id number] 21:42:00 Test Item Value Reference Range Interpretation Comments POCT PREG (test code = 1605) Negative On board controls acceptable with Yes C Line (test code = 3574) POCT PREG LOT # (test code = 3579) [id number] POCT PREG TEST DATE (test 02/29/2024 code = 3576) Lab Interpretation (test code = Normal 61404-6) [facility]. METABOLIC PANEL (64387)2022-10-28 20:25:41 Test Item Value Reference Range Interpretation Comments NA (test code = 136 mmol/L 135-145 1867552886) K (test code = 3.9 mmol/L 3.5-5.0 4051683053) CL (test code = 101 mmol/L 98-108 2976362398) CO2 TOTAL (test code = 27 mmol/L 23-31 2719849704) AGAP (test code = 8 2-16 8016289540) BUN (test code = 5 mg/dL 7-23 L 2931108186) GLUCOSE (test code = 98 mg/dL 70-110 0801228114) CREATININE (test code = 0.65 mg/dL 0.50-1.04 9275509875) TOTAL BILI (test code = 0.5 mg/dL 0.1-1.3 2401247504) CALCIUM (test code = 8.9 mg/dL 8.6-10.6 6880635136) T PROTEIN (test code = 7.2 g/dL 6.3-8.2 7926679324) ALBUMIN (test code = 3.9 g/dL 3.5-5.0 2899158859) ALK PHOS (test code = 81 U/L 34-122 5577457862) ALTv (test code = 14 U/L 5-35 1742-6) AST(SGOT) (test code = 28 U/L 13-40 7560599241) eGFR (test code = 99.5 mL/min/1.73m2 7615701402) JASMEET (test code = JASMEET) Association of [...] tests). Lab Interpretation Abnormal (test code = 75295-0) [facility] 20:14:18 Test Item Value Reference Range Interpretation Comments LIPASE (test code = 1935234490) 28 U/L 0-220 Lab Interpretation (test code = Normal 79881-9) [facility]CB WITH [id number] 19:54:37 Test Item Value Reference Range Interpretation Comments WBC (test code = 10.97 See_Comment [Automated 3389-2) message] The sy stem which generated this result transmitted reference range : 4.30 - 11.10 10*3/?L. The reference range was not used to interpret this result as normal/abnormal . RBC (test code = 4.09 See_Comment [Automated 042-9) message] The sy stem which generated this [...] RDW-SD (test code = 40.3 fL 39.0-49.9 48154-6) RDW-CV (test code = 12.0 % 12.0-15.5 788-0) PLT (test code = 188 See_Comment [Automated 777-3) message] The sy stem which generated this result transmitted reference range : 166 - 358 10*3/ ?L. The reference r fiona was not used to interpret this result as normal/abnormal . MPV (test code = 10.1 fL 9.5-12.9 87448-1) NRBC/100 WBC (test 0.0 See_Comment [Automat ed code = 2572081215) message] The system which generated this result transmitted reference range : 0.0 - 10.0 /100 WBCs. The refer ence range was not u sed to interpret th is result as normal/abnormal . NRBC x10^3 (test code See_Comment [Auto mated = 9368862997) message] The s ystem which generated this result transmitted reference range : 10*3/?L. The reference range was not used to interpret this result as normal/abnormal . GRAN MAT (NEUT) % 73.4 % (test code = 770-8) IMM GRAN % (test code 0.50 % = 6921877165) LYMPH % (test code = 20.9 % 736-9) MONO % (test code = 4.3 % 5905-5) EOS % (test code = 0.5 % 713-8) BASO % (test code = 0.4 % 706-2) GRAN MAT x10^3(ANC) 8.06 10*3/uL 1.88-7.09 H (test code = 7578515030) IMM GRAN x10^3 (test 0.05 10*3/uL 0.00-0.06 code = 2690712394) LYMPH x10^3 (test code 2.29 10*3/uL 1.32-3.29 = 731-0) MONO x10^3 (test code 0.47 10*3/uL 0.33-0.92 = 742-7) EOS x10^3 (test code = 0.06 10*3/uL 0.03-0.39 711-2) BASO x10^3 (test code 0.04 10*3/uL 0.01-0.07 = 704-7) Lab Interpretation Abnormal (test code = 32702-8) [facility] HospitalLactic Acid Whole [id number] 19:45:31 Test Item Value Reference Range Interpretation Comments LACTIC ACID (test code = 0.85 mmol/L 0.50-2.20 7846183105) Lab Interpretation (test code = Normal 18180-4) [facility], THIRD [id number] 08:59:32 Test Item Value Reference Range Interpretation Comments TSH, THIRD 51.900 UIU/ML 0.400-4.100 H [facility] has GENERATION (test important p athology code = 2821) staff changes effective 07/24. New patholo gy staff will prov norman uninterrupted, excellent patie nt care and clinic al consultation. S ee URL: [email or web address]. UNLE SS OTHERWISE INDIC ATED, ALL TESTING PER FORMED AT [facility]. [address] [place] [address] [address]ES JEAN DIRECTOR: Almas FERRARI LILIANE NUMBER [id number] CAP ACCREDITATION N O. [id number] COMPREHENSIVE METABOLIC [id number] 08:36:54 Test Item Value Reference Range Interpretation Comments GLUCOSE (test code = 82 MG/DL 70-99 2216) BUN (test code = 10 MG/DL 11-12) CREATININE (test 0.98 MG/DL 0.60-1.30 code = 2214) eGFR (2020 CKD-EPI) 73 ML/MIN/1.73 >60 (test code = 83429) CALC BUN/CREAT (test 10 RATIO 6-28 code = 2235) SODIUM (test code = 139 MEQ/L 701-734 9368) POTASSIUM (test code 4.0 MEQ/L 3.5-5.4 = 222) CHLORIDE (test code 102 MEQ/L 95-107 = [...] message] (test code = 2207) The syste [employer] which generated this result transmit justino reference range : <=1.2. The refe rence range was not u sed to interpret th is result as normal/abnormal . ALKALINE PHOSPHATASE 66 U/L 40-113 (test code = 220) AST (test code = 13 U/L 9-40 2217) ALT (test code = 12 U/L 5-40 2218) LIPID [id number] 08:36:54 Test Item Value Reference Range Interpretation [...] MOREINFORMATION , SEE CLIENT ANNOUNCE MENT AT [email or web address] [email or web address] RATIO LDL/HDL 0.92 RATIO <3.22 (test code = 2238) HEMOGLOBIN [id number] 06:06:42 Test Item Value Reference Range Interpretation Comments HEMOGLOBIN A1c (test code = 47881) 5.3 % 4.2-5.6 CBC W/AUTO DIFF WITH [id number] 04:19:18 Test Item Value Reference Range Interpretation [...] RBCS 0.00 K/UL 0.00-0.11 (test code = 43595) 12 Lead [id number] 06:51:5812 LEAD EKG FOR [facility] Test Date: 5994-97-30Lfh Name: DESTINEE NOLAN Department: 5520Patient ID: [id number] Room: Gender: F Electrical Instrument Maker: [id number]: 1980 Requested By: SUGEY MORALES Order Number: [id number] Reading MD: Ladonna Forman MeasurementsIntervals [place] Rate: 58 P: 53PR: 138 QRS: 63QRSD: 89 T: 22QT: 431 QTc: 429 Interpretive StatementsSINUS BRADYCARDIANONSPECIFIC T-WAVE ABNORMALITYElectronically Signed On 06-22-2022 12:16:46 RN [facility] Lead [id number] 06:51:5812 LEAD EKG FOR [facility] Test Date: 3100-09-39Tgo Name: DESTINEE NOLAN Department: 5520Patient ID: [id number] Room: Gender: F Electrical Instrument Maker: [id number]: 1980 Requested By: PRIETO Order Number: [id number] Reading MD: Ladonna Forman MeasurementsIntervals [place] Rate: 58 P: 53PR: 138 QRS: 63QRSD: 89 T: 22QT: 431 QTc: 429 Interpretive StatementsSINUS BRADYCARDIANONSPECIFIC T-WAVE ABNORMALITYElectronically Signed On 06-22-2022 12:16:46 [facility] [id number] 06:51:5812 LEAD EKG FOR [facility] Test Date: 7841-09-07Myc Name: DESTINEE NOLAN Department: 5520Patient ID: [id number] Room: Gender: F Electrical Instrument Maker: [id number]: 1980 Requested By: SUGEY MORALES Order Number: [id number] Reading MD: Ladonna Forman MeasurementsIntervals [place] Rate: 58 P: 53PR: 138 QRS: 63QRSD: 89 T: 22QT: 431 QTc: 429 Interpretive StatementsSINUS BRADYCARDIANONSPECIFIC T-WAVE ABNORMALITYElectronically Signed On 06-22-2022 12:16:46 [facility] [id number] 06:51:5812 LEAD EKG FOR [facility] Test Date: 5254-81-73Kty Name: DESTINEE NOLAN Department: [id number] ID: [id number] Room: Gender: F Electrical Instrument Maker: [id number]: 1980 Requested By: SUGEY MORALES Order Number: [id number] Reading MD: Ladonna Forman MeasurementsIntervals [place] Rate: 58 P: 53PR: 138 QRS: 63QRSD: 89 T: 22QT: 431 QTc: 429 Interpretive StatementsSINUS BRADYCARDIANONSPECIFIC T-WAVE ABNORMALITYElectronically Signed On 06-22-2022 12:16:46 [facility] [id number] 06:51:5812 LEAD EKG FOR [facility] Test Date: 2849-32-84Crh Name: DESTINEE NOLAN Department: [id number] ID: [id number] Room: Gender: F Electrical Instrument Maker: [id number]: 1980 Requested By: SUGEY MORALES Order Number: [id number] Reading MD: Ladonna Forman MeasurementsIntervals [place] Rate: 58 P: 53PR: 138 QRS: 63QRSD: 89 T: 22QT: 431 QTc: 429 Interpretive StatementsSINUS BRADYCARDIANONSPECIFIC T-WAVE ABNORMALITYElectronically Signed On 06-22-2022 12:16:46 [facility] [id number] 06:51:5812 LEAD EKG FOR [facility] Test Date: 5222-54-50Mcv Name: DESTINEE NOLAN Department: 5520Patient ID: [id number] Room: Gender: F Electrical Instrument Maker: [id number]: 1980 Requested By: SUGEY MORALES Order Number: [id number] Reading MD: Ladonna Forman MeasurementsIntervals [place] Rate: 58 P: 53PR: 138 QRS: 63QRSD: 89 T: 22QT: 431 QTc: 429 Interpretive StatementsSINUS BRADYCARDIANONSPECIFIC T-WAVE ABNORMALITYElectronically Signed On 06-22-2022 12:16:46 RN [facility] Lead [id number] 06:51:5812 LEAD EKG FOR [facility] Test Date: 8100-28-74Ezt Name: DESTINEE NOLAN Department: 5520Patient ID: [id number] Room: Gender: F Electrical Instrument Maker: [id number]: 1980 Requested By: SUGEY MORALES Order Number: [id number] Reading MD: Ladonna Forman MeasurementsIntervals [place] Rate: 58 P: 53PR: 138 QRS: 63QRSD: 89 T: 22QT: 431 QTc: 429 Interpretive StatementsSINUS BRADYCARDIANONSPECIFIC T-WAVE ABNORMALITYElectronically Signed On 06-22-2022 12:16:46 RN EMBEDDED by Ladonna [facility]12 Lead [id number] 06:51:5812 LEAD EKG FOR [facility] Test Date: 7981-69-89Fim Name: DESTINEE NOLAN Department: 5520Patient ID: [id number] Room: Gender: F Electrical Instrument Maker: [id number]: 1980 Requested By: SUGEY MORALES Order Number: [id number] Reading MD: Ladonna Forman MeasurementsIntervals [place] Rate: 58 P: 53PR: 138 QRS: 63QRSD: 89 T: 22QT: 431 QTc: 429 Interpretive StatementsSINUS BRADYCARDIANONSPECIFIC T-WAVE ABNORMALITYElectronically Signed On 06-22-2022 12:16:46 RN EMBEDDED by Ladonna [facility]12 Lead [id number] 06:51:5812 LEAD EKG FOR [facility] Test Date: 9910-26-95Yob Name: DESTINEE NOLAN Department: 5520Patient ID: [id number] Room: Gender: F Electrical Instrument Maker: [id number]: 1980 Requested By: SUGEY MORALES Order Number: [id number] Reading MD: Ladonna Forman MeasurementsIntervals [place] Rate: 58 P: 53PR: 138 QRS: 63QRSD: 89 T: 22QT: 431 QTc: 429 Interpretive StatementsSINUS BRADYCARDIANONSPECIFIC T-WAVE ABNORMALITYElectronically Signed On 06-22-2022 12:16:46 RN EMBEDDED by Ladonna [facility]12 Lead [id number] 06:51:5812 LEAD EKG FOR [facility] Test Date: 7156-85-68Lhg Name: DESTINEE NOLAN Department: 5520Patient ID: [id number] Room: Gender: F Electrical Instrument Maker: [id number]: 1980 Requested By: SUGEY MORALES Order Number: [id number] Reading MD: Ladonna Forman MeasurementsIntervals [place] Rate: 58 P: 53PR: 138 QRS: 63QRSD: 89 T: 22QT: 431 QTc: 429 Interpretive StatementsSINUS BRADYCARDIANONSPECIFIC T-WAVE ABNORMALITYElectronically Signed On 06-22-2022 12:16:46 [facility] [id number] 06:51:5812 LEAD EKG FOR [facility] Test Date: 5598-74-22Amu Name: DESTINEE NOLAN Department: 5520Patient ID: [id number] Room: Gender: F Electrical Instrument Maker: [id number]: 1980 Requested By: SUGEY MORALES Order Number: [id number] Reading MD: Ladonna Forman MeasurementsIntervals [place] Rate: 58 P: 53PR: 138 QRS: 63QRSD: 89 T: 22QT: 431 QTc: 429 Interpretive StatementsSINUS BRADYCARDIANONSPECIFIC T-WAVE ABNORMALITYElectronically Signed On 06-22-2022 12:16:46 RN EMBEDDED by Ladonna [facility]12 Lead [id number] 06:51:5812 LEAD EKG FOR [facility] Test Date: 4508-92-56Gtk Name: DESTINEE NOLAN Department: 5520Patient ID: [id number] Room: Gender: F Electrical Instrument Maker: [id number]: 1980 Requested By: SUGEY MORALES Order Number: [id number] Reading MD: Ladonna Forman MeasurementsIntervals [place] Rate: 58 P: 53PR: 138 QRS: 63QRSD: 89 T: 22QT: 431 QTc: 429 Interpretive StatementsSINUS BRADYCARDIANONSPECIFIC T-WAVE ABNORMALITYElectronically Signed On 06-22-2022 12:16:46 RN EMBEDDED by Ladonna [facility]12 Lead [id number] 06:51:5812 LEAD EKG FOR [facility] Test Date: 4299-03-73Pqj Name: DESTINEE NOLAN Department: 5520Patient ID: [id number] Room: Gender: F Electrical Instrument Maker: [id number]: 1980 Requested By: SUGEY MORALES Order Number: [id number] Reading MD: Ladonna Forman MeasurementsIntervals [place] Rate: 58 P: 53PR: 138 QRS: 63QRSD: 89 T: 22QT: 431 QTc: 429 Interpretive StatementsSINUS BRADYCARDIANONSPECIFIC T-WAVE ABNORMALITYElectronically Signed On 06-22-2022 12:16:46 [facility] [id number] 06:51:5812 LEAD EKG FOR [facility] Test Date: 8752-75-02Pwg Name: DESTINEE NOLAN Department: 5520Patient ID: [id number] Room: Gender: F Electrical Instrument Maker: [id number]: 1980 Requested By: SUGEY MORALES Order Number: [id number] Reading MD: Ladonna Forman MeasurementsIntervals [place] Rate: 58 P: 53PR: 138 QRS: 63QRSD: 89 T: 22QT: 431 QTc: 429 Interpretive StatementsSINUS BRADYCARDIANONSPECIFIC T-WAVE ABNORMALITYElectronically Signed On 06-22-2022 12:16:46 [facility] [id number] 06:51:5812 LEAD EKG FOR [facility] Test Date: 4567-88-74Frp Name: DESTINEE NOLAN Department: 5520Patient ID: [id number] Room: Gender: F Electrical Instrument Maker: [id number]: 1980 Requested By: SUGEY MORALES Order Number: [id number] Reading MD: Ladonna Forman MeasurementsIntervals [place] Rate: 58 P: 53PR: 138 QRS: 63QRSD: 89 T: 22QT: 431 QTc: 429 Interpretive StatementsSINUS BRADYCARDIANONSPECIFIC T-WAVE ABNORMALITYElectronically Signed On 06-22-2022 12:16:46 RN EMBEDDED by Ladonna [facility]12 Lead [id number] 06:51:5812 LEAD EKG FOR [facility] Test Date: 0987-29-53Tgq Name: DESTINEE NOLAN Department: 5520Patient ID: [id number] Room: Gender: F Electrical Instrument Maker: [id number]: 1980 Requested By: PRIETO Order Number: [id number] Reading MD: Ladonna Forman MeasurementsIntervals [place] Rate: 58 P: 53PR: 138 QRS: 63QRSD: 89 T: 22QT: 431 QTc: 429 Interpretive StatementsSINUS BRADYCARDIANONSPECIFIC T-WAVE ABNORMALITYElectronically Signed On 06-22-2022 12:16:46 [facility] [id number] 06:51:5812 LEAD EKG FOR [facility] Test Date: 0555-03-96Plp Name: DESTINEE NOLAN Department: 5520Patient ID: [id number] Room: Gender: F Electrical Instrument Maker: [id number]: 1980 Requested By: SUGEY MORALES Order Number: [id number] Reading MD: Ladonna Forman MeasurementsIntervals [place] Rate: 58 P: 53PR: 138 QRS: 63QRSD: 89 T: 22QT: 431 QTc: 429 Interpretive StatementsSINUS BRADYCARDIANONSPECIFIC T-WAVE ABNORMALITYElectronically Signed On 06-22-2022 12:16:46 [facility] [id number] 06:51:5812 LEAD EKG FOR [facility] Test Date: 0999-71-50Yox Name: DESTINEE NOLAN Department: 5520Patient ID: [id number] Room: Gender: F Electrical Instrument Maker: [id number]: 1980 Requested By: SUGEY MORALES Order Number: [id number] Reading MD: Ladonna Forman MeasurementsIntervals [place] Rate: 58 P: 53PR: 138 QRS: 63QRSD: 89 T: 22QT: 431 QTc: 429 Interpretive StatementsSINUS BRADYCARDIANONSPECIFIC T-WAVE ABNORMALITYElectronically Signed On 06-22-2022 12:16:46 RN EMBEDDED by [facility]12 Lead [id number] 06:51:5812 LEAD EKG FOR [facility] Test Date: 0887-58-90Ptm Name: DESTINEE NOLAN Department: 5520Patient ID: [id number] Room: Gender: F Electrical Instrument Maker: [id number]: 1980 Requested By: SUGEY MORALES Order Number: [id number] Reading MD: Ladonna Forman MeasurementsIntervals [place] Rate: 58 P: 53PR: 138 QRS: 63QRSD: 89 T: 22QT: 431 QTc: 429 Interpretive StatementsSINUS BRADYCARDIANONSPECIFIC T-WAVE ABNORMALITYElectronically Signed On 06-22-2022 12:16:46 RN EMBEDDED by LadonnaThubrikar Aortic ValveparamMy-Apps HealthCoronavirus, CoVID-19, [id number] 05:23:56 Test Item Value Reference Interpretation Comments Range COVID-19 Not Detected Not Detected INTERPRETATION: (SARS-COV-2) (test No detect able code = 36788-4) levels of SARS-CoV-2 Coronavirus (COVID-19) were present [...] JASMEET (test code = COMMENT: This JASMEET) [employer] Xpert Xpress SARS-CoV-2 real-time PCR test was developed, and its performance characteristics determined by the [facility] molecular diagnostic Laboratory and is acceptable for patient testing. It has been approved for patient testing by the FDA under the Emergency Use Authorization pathway. This laboratory is certified under federal CLIA regulations to perform this type of high complexity testing. Lab Interpretation Normal (test code = 59736-5) [facility] HealthCoronavirus, CoVID-19, [id number] 05:23:56 Test Item Value Reference Interpretation Comments Range COVID-19 Not Detected Not Detected INTERPRETATION: (SARS-COV-2) (test No detect able code = 43134-0) levels of SARS-CoV-2 Coronavirus (COVID-19) were present [...] JASMEET (test code = COMMENT: This JASMEET) [employer] Xpert Xpress SARS-CoV-2 real-time PCR test was developed, and its performance characteristics determined by the [facility] molecular diagnostic Laboratory and is acceptable for patient testing. It has been approved for patient testing by the FDA under the Emergency Use Authorization pathway. This laboratory is certified under federal CLIA regulations to perform this type of high complexity testing. Lab Interpretation Normal (test code = 75681-1) [facility] Pierceronavirus, CoVID-19, [id number] 05:23:56 Test Item Value Reference Interpretation Comments Range COVID-19 Not Detected Not Detected INTERPRETATION: (SARS-COV-2) (test No detect able code = 92098-1) levels of SARS-CoV-2 Coronavirus (COVID-19) were present [...] JASMEET (test code = COMMENT: This JASMEET) [employer] Xpert Xpress SARS-CoV-2 real-time PCR test was developed, and its performance characteristics determined by the [facility] molecular diagnostic Laboratory and is acceptable for patient testing. It has been approved for patient testing by the FDA under the Emergency Use Authorization pathway. This laboratory is certified under federal CLIA regulations to perform this type of high complexity testing. Lab Interpretation Normal (test code = 30254-3) [facility] HealthCoronavirus, CoVID-19, [id number] 05:23:56 Test Item Value Reference Interpretation Comments Range COVID-19 Not Detected Not Detected INTERPRETATION: (SARS-COV-2) (test No detect able code = 17514-8) levels of SARS-CoV-2 Coronavirus (COVID-19) were present [...] JASMEET (test code = COMMENT: This JASMEET) [employer] Xpert Xpress SARS-CoV-2 real-time PCR test was developed, and its performance characteristics determined by the [facility] molecular diagnostic Laboratory and is acceptable for patient testing. It has been approved for patient testing by the FDA under the Emergency Use Authorization pathway. This laboratory is certified under federal CLIA regulations to perform this type of high complexity testing. Lab Interpretation Normal (test code = 60499-6) [facility] HealthCoronavirus, CoVID-19, [id number] 05:23:56 Test Item Value Reference Interpretation Comments Range COVID-19 Not Detected Not Detected INTERPRETATION: (SARS-COV-2) (test No detect able code = 04125-9) levels of SARS-CoV-2 Coronavirus (COVID-19) were present [...] and its performance characteristics determined by the [facility] molecular diagnostic Laboratory and is acceptable for patient testing. It has been approved for patient testing by the FDA under the Emergency Use Authorization pathway. This laboratory is certified under federal CLIA regulations to perform this type of high complexity testing. Lab Interpretation Normal (test code = 09572-5) [facility] HealthCoronavirus, CoVID-19, [id number] 05:23:56 Test Item Value Reference Interpretation Comments Range COVID-19 Not Detected Not Detected INTERPRETATION: (SARS-COV-2) (test No detect able code = 39106-9) levels of SARS-CoV-2 Coronavirus (COVID-19) were present [...] JASMEET (test code = COMMENT: This JASMEET) [employer] Xpert Xpress SARS-CoV-2 real-time PCR test was developed, and its performance characteristics determined by the [facility] molecular diagnostic Laboratory and is acceptable for patient testing. It has been approved for patient testing by the FDA under the Emergency Use Authorization pathway. This laboratory is certified under federal CLIA regulations to perform this type of high complexity testing. Lab Interpretation Normal (test code = 16602-8) [facility] HealthCoronavirus, CoVID-19, [id number] 05:23:56 Test Item Value Reference Interpretation Comments Range COVID-19 Not Detected Not Detected INTERPRETATION: (SARS-COV-2) (test No detect able code = 05253-6) levels of SARS-CoV-2 Coronavirus (COVID-19) were present [...] JASMEET (test code = COMMENT: This JASMEET) [employer] Xpert Xpress SARS-CoV-2 real-time PCR test was developed, and its performance characteristics determined by the [facility] molecular diagnostic Laboratory and is acceptable for patient testing. It has been approved for patient testing by the FDA under the Emergency Use Authorization pathway. This laboratory is certified under federal CLIA regulations to perform this type of high complexity testing. Lab Interpretation Normal (test code = 61775-7) [facility], [id number] 05:23:56 Test Item Value Reference Interpretation Comments Range COVID-19 Not Detected Not Detected INTERPRETATION: (SARS-COV-2) (test No detect able code = 16764-9) levels of SARS-CoV-2 Coronavirus (COVID-19) were present [...] JASMEET (test code = COMMENT: This JASMEET) [employer] Xpert Xpress SARS-CoV-2 real-time PCR test was developed, and its performance characteristics determined by the [facility] molecular diagnostic Laboratory and is acceptable for patient testing. It has been approved for patient testing by the FDA under the Emergency Use Authorization pathway. This laboratory is certified under federal CLIA regulations to perform this type of high complexity testing. Lab Interpretation Normal (test code = 25135-9) [facility] Pierceronavirus, CoVID-19, [id number] 05:23:56 Test Item Value Reference Interpretation Comments Range COVID-19 Not Detected Not Detected INTERPRETATION: (SARS-COV-2) (test No detect able code = 31729-4) levels of SARS-CoV-2 Coronavirus (COVID-19) were present [...] JASMEET (test code = COMMENT: This JASMEET) [employer] Xpert Xpress SARS-CoV-2 real-time PCR test was developed, and its performance characteristics determined by the [facility] molecular diagnostic Laboratory and is acceptable for patient testing. It has been approved for patient testing by the FDA under the Emergency Use Authorization pathway. This laboratory is certified under federal CLIA regulations to perform this type of high complexity testing. Lab Interpretation Normal (test code = 85243-2) [facility] Pierceronavirus, CoVID-19, [id number] 05:23:56 Test Item Value Reference Interpretation Comments Range COVID-19 Not Detected Not Detected INTERPRETATION: (SARS-COV-2) (test No detect able code = 29545-8) levels of SARS-CoV-2 Coronavirus (COVID-19) were present [...] and its performance characteristics determined by the [facility] molecular diagnostic Laboratory and is acceptable for patient testing. It has been approved for patient testing by the FDA under the Emergency Use Authorization pathway. This laboratory is certified under federal CLIA regulations to perform this type of high complexity testing. Lab Interpretation Normal (test code = 20992-8) [facility] HealthCoronavirus, CoVID-19, [id number] 05:23:56 Test Item Value Reference Interpretation Comments Range COVID-19 Not Detected Not Detected INTERPRETATION: (SARS-COV-2) (test No detect able code = 14703-8) levels of SARS-CoV-2 Coronavirus (COVID-19) were present [...] and its performance characteristics determined by the [facility] molecular diagnostic Laboratory and is acceptable for patient testing. It has been approved for patient testing by the FDA under the Emergency Use Authorization pathway. This laboratory is certified under federal CLIA regulations to perform this type of high complexity testing. Lab Interpretation Normal (test code = 68806-5) [facility] HealthCoronavirus, CoVID-19, [id number] 05:23:56 Test Item Value Reference Interpretation Comments Range COVID-19 Not Detected Not Detected INTERPRETATION: (SARS-COV-2) (test No detect able code = 45293-9) levels of SARS-CoV-2 Coronavirus (COVID-19) were present [...] JASMEET (test code = COMMENT: This JASMEET) [employer] Xpert Xpress SARS-CoV-2 real-time PCR test was developed, and its performance characteristics determined by the [facility] molecular diagnostic Laboratory and is acceptable for patient testing. It has been approved for patient testing by the FDA under the Emergency Use Authorization pathway. This laboratory is certified under federal CLIA regulations to perform this type of high complexity testing. Lab Interpretation Normal (test code = 16310-0) [facility] HealthCoronavirus, CoVID-19, [id number] 05:23:56 Test Item Value Reference Interpretation Comments Range COVID-19 Not Detected Not Detected INTERPRETATION: (SARS-COV-2) (test No detect able code = 25623-9) levels of SARS-CoV-2 Coronavirus (COVID-19) were present [...] JASMEET (test code = COMMENT: This JASMEET) [employer] Xpert Xpress SARS-CoV-2 real-time PCR test was developed, and its performance characteristics determined by the [facility] molecular diagnostic Laboratory and is acceptable for patient testing. It has been approved for patient testing by the FDA under the Emergency Use Authorization pathway. This laboratory is certified under federal CLIA regulations to perform this type of high complexity testing. Lab Interpretation Normal (test code = 32699-3) [facility] Pierceronavirus, CoVID-19, [id number] 05:23:56 Test Item Value Reference Interpretation Comments Range COVID-19 Not Detected Not Detected INTERPRETATION: (SARS-COV-2) (test No detect able code = 11340-8) levels of SARS-CoV-2 Coronavirus (COVID-19) were present [...] JASMEET (test code = COMMENT: This JASMEET) [employer] Xpert Xpress SARS-CoV-2 real-time PCR test was developed, and its performance characteristics determined by the [facility] molecular diagnostic Laboratory and is acceptable for patient testing. It has been approved for patient testing by the FDA under the Emergency Use Authorization pathway. This laboratory is certified under federal CLIA regulations to perform this type of high complexity testing. Lab Interpretation Normal (test code = 92813-4) [facility] Pierceronavirus, CoVID-19, [id number] 05:23:56 Test Item Value Reference Interpretation Comments Range COVID-19 Not Detected Not Detected INTERPRETATION: (SARS-COV-2) (test No detect able code = 81493-1) levels of SARS-CoV-2 Coronavirus (COVID-19) were present [...] and its performance characteristics determined by the [facility] molecular diagnostic Laboratory and is acceptable for patient testing. It has been approved for patient testing by the FDA under the Emergency Use Authorization pathway. This laboratory is certified under federal CLIA regulations to perform this type of high complexity testing. Lab Interpretation Normal (test code = 41662-1) [facility] HealthCoronavirus, CoVID-19, [id number] 05:23:56 Test Item Value Reference Interpretation Comments Range COVID-19 Not Detected Not Detected INTERPRETATION: (SARS-COV-2) (test No detect able code = 07223-6) levels of SARS-CoV-2 Coronavirus (COVID-19) were present [...] JASMEET (test code = COMMENT: This JASMEET) [employer] Xpert Xpress SARS-CoV-2 real-time PCR test was developed, and its performance characteristics determined by the [facility] molecular diagnostic Laboratory and is acceptable for patient testing. It has been approved for patient testing by the FDA under the Emergency Use Authorization pathway. This laboratory is certified under federal CLIA regulations to perform this type of high complexity testing. Lab Interpretation Normal (test code = 13913-7) [facility] HealthCoronavirus, CoVID-19, [id number] 05:23:56 Test Item Value Reference Interpretation Comments Range COVID-19 Not Detected Not Detected INTERPRETATION: (SARS-COV-2) (test No detect able code = 75662-2) levels of SARS-CoV-2 Coronavirus (COVID-19) were present [...] and its performance characteristics determined by the [facility] molecular diagnostic Laboratory and is acceptable for patient testing. It has been approved for patient testing by the FDA under the Emergency Use Authorization pathway. This laboratory is certified under federal CLIA regulations to perform this type of high complexity testing. Lab Interpretation Normal (test code = 29076-3) [facility] HealthCoronavirus, CoVID-19, [id number] 05:23:56 Test Item Value Reference Interpretation Comments Range COVID-19 Not Detected Not Detected INTERPRETATION: (SARS-COV-2) (test No detect able code = 98464-6) levels of SARS-CoV-2 Coronavirus (COVID-19) were present [...] JASMEET (test code = COMMENT: This JASMEET) [employer] Xpert Xpress SARS-CoV-2 real-time PCR test was developed, and its performance characteristics determined by the [facility] molecular diagnostic Laboratory and is acceptable for patient testing. It has been approved for patient testing by the FDA under the Emergency Use Authorization pathway. This laboratory is certified under federal CLIA regulations to perform this type of high complexity testing. Lab Interpretation Normal (test code = 94410-1) [facility] HealthCoronavirus, CoVID-19, [id number] 05:23:56 Test Item Value Reference Interpretation Comments Range COVID-19 Not Detected Not Detected INTERPRETATION: (SARS-COV-2) (test No detect able code = 76415-0) levels of SARS-CoV-2 Coronavirus (COVID-19) were present [...] JASMEET (test code = COMMENT: This JASMEET) [employer] Xpress SARS-CoV-2 real-time PCR test was developed, and its performance characteristics determined by the [facility] molecular diagnostic Laboratory and is acceptable for patient testing. It has been approved for patient testing by the FDA under the Emergency Use Authorization pathway. This laboratory is certified under federal CLIA regulations to perform this type of high complexity testing. Lab Interpretation Normal (test code = 51783-6) [facility]-CoV-2 RNA Resp Ql MANJIT+[id number] 05:23:56 Test Item Value Reference Range Interpretation Comments Hospitalized? (test No code = 59820-2) ICU? (test code = No 24339-1) Symptomatic as defined No by CDC? (test code = 74621-5) Employed in No Healthcare? (test code = 17510-9) Resident in a No congregate care setting (including nursing homes, residential care for people with intellectual and developmental disabilities, psychiatric treatment facilities, group homes, board and care homes, homeless mcc, foster care or other): (test code = 19328-4) ? (test code = No 57211-8) SARS-CoV-2 RNA Resp Ql NOT DETECTED Not Detected INTER PRETATION: No MANJIT+probe (test code = detec table levels 93009-2) of SARS-CoV-2 Coronavirus (COVID-19) were present in [...] n with SARS-CoV-2 Coronavirus (COVID-19). COMMENT: This [employer] Xpert Xpress SARS-CoV-2 real-time PCR test was developed, and its performance characteristics determined by the [facility] molecular diagnostic Laboratory and is acceptablefor patient testing. It has been approved for patient testing by the FDA under the Emergency Use Auth orization pathway. This laboratory is certified under federal CLIA regulations to perform this type of high complexity testing.[facility] 2022-[facility]-12 06:20:06 Test Item Value Reference Range Interpretation Comments TSH, THIRD 0.023 UIU/ML 0.400-4.100 L UNLESS OTHERWI SE GENERATION (test INDICATED, ALL TESTING code = 2821) PERFORMED [facility], [id number] [place] [address] DIRECTOR: JOVANA HAQ M.D. CLIA NUMBER [id number] CAP ACCREDITATION N O. [id number] Troponin I - Code [id number] 22:05:04 Test Item Value Reference Interpretation Comments Range TROPONIN I (test 0.001 ng/mL See_Comment [Automated code = 5294280877) message] The system which generated this result [...] biotin. Lab Interpretation Normal (test code = 40847-7) [facility] - Code [id number] 21:52:45 Test Item Value Reference Range Interpretation Comments APTT Patient (test See_Comment [Automat ed code = 3173-2) message] The system which generated this result transmitted reference range : 23 - 38 Seconds . The reference range was not used to interpr et this result as normal/abnormal . JASMEET (test code = JASMEET) [facility] mean normal value for aPTT is 30 seconds. Lab Interpretation Normal (test code = 40326-9) [facility] Metabolic Panel (NA, K, CL, CO2, Glucose, BUN, Creatinine, CA) - Code [id number] 21:52:45 Test Item Value Reference Range Interpretation Comments NA (test code = 139 mmol/L 135-145 7642512944) K (test code = 4.2 mmol/L 3.5-5.0 7408591080) CL (test code = 103 mmol/L 98-108 5468854381) CO2 TOTAL (test code = 27 mmol/L 23-31 0233638246) AGAP (test code = 2-16 2106576862) BUN (test code = 3 mg/dL 7-23 L 8235376115) GLUCOSE (test code = 99 mg/dL 70-110 8341189849) CREATININE (test code = 0.58 mg/dL 0.50-1.04 1466465051) CALCIUM (test code = 8.9 mg/dL 8.6-10.6 6853251952) eGFR (test code = mL/min/1.73m2 3580665536) JASMEET (test code = JASMEET) Association of [...] tests). Lab Interpretation Abnormal (test code = 16543-7) [facility] HospitalProthrombin Time / INR - Code [id number] 21:50:26 Test Item Value Reference Range Interpretation Comments PROTIME PATIENT (test See_Comment [Auto mated message] code = 5964-2) The system [employer] generated this result transmitted ref erence range: 12.0 - 1 4.7 Seconds. The re ference range was not u sed to interpret this result as normal/abnor mal. INR (test code = 6301-6) Nor mal INR <1.1; Warfarin Therap eutic range 2.0 to 3. 0 or 2.5 to 3.5, dep ending upon the indica tions. Lab Interpretation (test Normal code = 10544-6) [facility] HospitalCBC without Diff - Code [id number] 21:43:21 Test Item Value Reference Range Interpretation Comments WBC (test code = 6690-2) See_Comment [A utomated message] The system Yelago generated this result transmit justino reference range : 4.30 - 11.10 10*3/?L. The reference range was not used to interpret this result as normal/abnormal . RBC (test code = 789-8) See_Comment [Au tomated message] The system [employer]el[employer] generated this result transmit justino reference range [...] 777-3) See_Comment [Au tomated message] The system [employer] generated this result transmit justino reference range : 166 - 358 10*3/?L. The reference range was not used to interpret this result as normal/abnormal . MPV (test code = 9.9 fL 9.5-12.9 52136-0) RDW-CV (test code = 11.4 % 12.0-15.5 L 788-0) RDW-SD (test code = 38.6 fL 39.0-49.9 L 48454-3) NRBC x10^3 (test code = See_Comment [Au tomated message] 3492170512) The system Yelago generated this result transmit justino reference range : 10*3/?L. The reference range was not used to interpret this result as normal/abnormal . NRBC/100 WBC (test code See_Comment [Au tomated message] = 9437127496) The system [employer] generated this result transmit justino reference range : 0.0 - 10.0 /100 WBC s. The reference r fiona was not used to interpret this result as normal/abnormal . IPF % (test code = 8933737257) Lab Interpretation (test Abnormal code = 87052-4) [facility] HospitalPOMD GLUCOSE (AUTOMATED)2022-05-31 21:38:39 Test Item Value Reference Range Interpretation Comments POCT GLU (test code = 6108040141) 116 mg/dL 70-110 H Lab Interpretation (test code = Abnormal 32991-0) [facility] HospitalCULTURE, [id number] 11:21:16SPECIMEN NUMBER: [id number] CULTURE, URINE SPECIMEN NUMBER: [id number] SPECIMEN COMMENT: URINE SOURCE:URINE REPORT STATUS: FINAL ISOLATE NUMBER 1: ORGANISM: 04/17/2022 >100,000 CFU/ML GRAM NEGATIVE BACILLI IDENTIFICATION: 04/18/2022 KLEBSIELLA OXYTOCA K. OXYTOCA AMOXICILLIN/CA SENSITIVE <=8/4AMPICILLIN RESISTANT >16CEFAZOLIN SENSITIVE 8CEFTRIAXONE SENSITIVE <=1CIPROFLOXACIN SENSITIVE <=1LEVOFLOXACIN SENSITIVE <=2NITROFURANTOIN SENSITIVE <=32PIP/TAZOBAC SENSITIVE <=16TETRACYCLINE SENSITIVE <=4TOBRAMYCIN SENSITIVE <=4TRIMETH/SULFA SENSITIVE <=2/38 NOTE:NUMBERS DISPLAYED REPRESENT MINIMUM INHIBITORY CONCENTRATION (YANIRA) WHICH IS EXPRESSED IN MCG/ML. UNLESS OTHERWISE INDICATED, ALL TESTING PERFORMED [facility] [address] [place] [address] DIRECTOR OF ACCOUNTS RECEIVABLE: JOVANA HAQ M.D. [place] NUMBER [id number] [facility] [place]. [id number], [id number] 00:00:00 Test Item Value Reference Range Interpretation Comments CULTURE, URINE (test SPECIMEN NUMBER: code = 84340) [id number] CULTURE, [id number] 00:00:00 Test Item Value Reference Range Interpretation Comments CULTURE, URINE (test SPECIMEN NUMBER: code = 24590) [id number] CULTURE, [id number] 00:00:00 Test Item Value Reference Range Interpretation Comments CULTURE, URINE (test SPECIMEN NUMBER: code = 31288) [id number] CULTURE, [id number] 00:00:00 Test Item Value Reference Range Interpretation Comments CULTURE, URINE (test SPECIMEN NUMBER: code = 81454) [id number] TSH, THIRD [id number] 00:00:00 Test Item Value Reference Range Interpretation Comments TSH, THIRD GENERATION (test >100.000 UIU/ML code = 2821) TSH, THIRD [id number] 00:00:00 Test Item Value Reference Range Interpretation Comments TSH, THIRD GENERATION (test >100.000 UIU/ML code = 2821) TSH, THIRD [id number] 00:00:00 Test Item Value Reference Range Interpretation Comments TSH, THIRD GENERATION (test >100.000 UIU/ML code = 2821) COMPREHENSIVE METABOLIC [id number] 00:00:00 Test Item Value Reference Range Interpretation Comments GLUCOSE (test code = 2217) 91 MG/DL BUN (test code = 2208) 4 MG/DL CREATININE (test code = 2214) 1.18 MG/DL eGFR (2020 CKD-EPI) (test code 59 ML/MIN/1.73 = 81431) CALC BUN/CREAT (test code = 3 RATIO [...] code = 2219) 16 U/L COMPREHENSIVE METABOLIC [id number] 00:00:00 Test Item Value Reference Range Interpretation Comments GLUCOSE (test code = 2217) 91 MG/DL BUN (test code = 2208) 4 MG/DL CREATININE (test code = 2214) 1.18 MG/DL eGFR (2020 CKD-EPI) (test code 59 ML/MIN/1.73 = 19034) CALC BUN/CREAT (test code = 3 RATIO [...] BILIRUBIN, TOTAL (test code = 0.3 MG/DL 2207) ALKALINE PHOSPHATASE (test 71 U/L code = 2204) AST (test code = 2218) 19 U/L ALT (test code = 2219) 16 U/L CBC W/AUTO [id number] 00:00:00 Test Item Value Reference Range Interpretation [...] NUCLEATED RBCS (test code = 0.00 K/UL 86310) CBC W/AUTO [id number] 00:00:00 Test Item Value Reference Range Interpretation [...] NUCLEATED RBCS (test code = 0.00 K/UL 04251) CBC W/AUTO [id number] 00:00:00 Test Item Value Reference Range Interpretation [...] NUCLEATED RBCS (test code = 0.00 K/UL 13861) LIPID [id number] 00:00:00 Test Item Value Reference Range Interpretation Comments CHOLESTEROL (test code = 2210) 269 MG/DL TRIGLYCERIDES (test code = 2232) 111 MG/DL HDL CHOLESTEROL (test code = 2220) 42 MG/DL CALC LDL CHOL (test code = 2237) 202 MG/DL RISK RATIO LDL/HDL (test code = 4.81 RATIO 2238) LIPID [id number] 00:00:00 Test Item Value Reference Range Interpretation Comments CHOLESTEROL (test code = 2210) 269 MG/DL TRIGLYCERIDES (test code = 2232) 111 MG/DL HDL CHOLESTEROL (test code = 2220) 42 MG/DL CALC LDL CHOL (test code = 2237) 202 MG/DL RISK RATIO LDL/HDL (test code = 4.81 RATIO 2238) TSH, THIRD [id number] 00:00:00 Test Item Value Reference Range Interpretation Comments TSH, THIRD GENERATION (test >100.000 UIU/ML code = 2821) COMPREHENSIVE METABOLIC [id number] 00:00:00 Test Item Value Reference Range Interpretation Comments GLUCOSE (test code = 2217) 91 MG/DL BUN (test code = 2208) 4 MG/DL CREATININE (test code = 2214) 1.18 MG/DL eGFR (2020 CKD-EPI) (test code 59 ML/MIN/1.73 = 30678) CALC BUN/CREAT (test code = 3 RATIO [...] code = 2219) 16 U/L COMPREHENSIVE METABOLIC [id number] 00:00:00 Test Item Value Reference Range Interpretation Comments GLUCOSE (test code = 2217) 91 MG/DL BUN (test code = 2208) 4 MG/DL CREATININE (test code = 2214) 1.18 MG/DL eGFR (2020 CKD-EPI) (test code 59 ML/MIN/1.73 = 17188) CALC BUN/CREAT (test code = 3 RATIO [...] code = 2219) 16 U/L TSH, THIRD [id number] 00:00:00 Test Item Value Reference Range Interpretation Comments TSH, THIRD GENERATION (test >100.000 UIU/ML code = 2821) TSH, THIRD [id number] 00:00:00 Test Item Value Reference Range Interpretation Comments TSH, THIRD GENERATION (test >100.000 UIU/ML code = 2821) TSH, THIRD [id number] 00:00:00 Test Item Value Reference Range Interpretation Comments TSH, THIRD GENERATION (test >100.000 UIU/ML code = 2821) COMPREHENSIVE METABOLIC [id number] 00:00:00 Test Item Value Reference Range Interpretation Comments GLUCOSE (test code = 2217) 91 MG/DL BUN (test code = 2208) 4 MG/DL CREATININE (test code = 2214) 1.18 MG/DL eGFR (2020 CKD-EPI) (test code 59 ML/MIN/1.73 = 38237) CALC BUN/CREAT (test code = 3 RATIO [...] code = 2219) 16 U/L COMPREHENSIVE METABOLIC [id number] 00:00:00 Test Item Value Reference Range Interpretation Comments GLUCOSE (test code = 2217) 91 MG/DL BUN (test code = 2208) 4 MG/DL CREATININE (test code = 2214) 1.18 MG/DL eGFR (2020 CKD-EPI) (test code 59 ML/MIN/1.73 = 70536) CALC BUN/CREAT (test code = 3 RATIO [...] code = 2219) 16 U/L CBC W/AUTO [id number] 00:00:00 Test Item Value Reference Range Interpretation [...] NUCLEATED RBCS (test code = 0.00 K/UL 58266) CBC W/AUTO [id number] 00:00:00 Test Item Value Reference Range Interpretation [...] NUCLEATED RBCS (test code = 0.00 K/UL 45730) CBC W/AUTO [id number] 00:00:00 Test Item Value Reference Range Interpretation [...] NUCLEATED RBCS (test code = 0.00 K/UL 81924) CBC W/AUTO [id number] 00:00:00 Test Item Value Reference Range Interpretation [...] NUCLEATED RBCS (test code = 0.00 K/UL 10545) LIPID [id number] 00:00:00 Test Item Value Reference Range Interpretation Comments CHOLESTEROL (test code = 2210) 269 MG/DL TRIGLYCERIDES (test code = 2232) 111 MG/DL HDL CHOLESTEROL (test code = 2220) 42 MG/DL CALC LDL CHOL (test code = 2237) 202 MG/DL RISK RATIO LDL/HDL (test code = 4.81 RATIO 2238) LIPID [id number] 00:00:00 Test Item Value Reference Range Interpretation Comments CHOLESTEROL (test code = 2210) 269 MG/DL TRIGLYCERIDES (test code = 2232) 111 MG/DL HDL CHOLESTEROL (test code = 2220) 42 MG/DL CALC LDL CHOL (test code = 2237) 202 MG/DL RISK RATIO LDL/HDL (test code = 4.81 RATIO 2238) CBC W/AUTO [id number] 00:00:00 Test Item Value Reference Range Interpretation [...] NUCLEATED RBCS (test code = 0.00 K/UL 44973) CBC W/AUTO [id number] 00:00:00 Test Item Value Reference Range Interpretation [...] NUCLEATED RBCS (test code = 0.00 K/UL 30013) LIPID [id number] 00:00:00 Test Item Value Reference Range Interpretation Comments CHOLESTEROL (test code = 2210) 269 MG/DL TRIGLYCERIDES (test code = 2232) 111 MG/DL HDL CHOLESTEROL (test code = 2220) 42 MG/DL CALC LDL CHOL (test code = 2237) 202 MG/DL RISK RATIO LDL/HDL (test code = 4.81 RATIO 2238) TSH, THIRD [id number] 00:00:00 Test Item Value Reference Range Interpretation Comments TSH, THIRD GENERATION (test >100.000 UIU/ML code = 2821) TSH, THIRD [id number] 00:00:00 Test Item Value Reference Range Interpretation Comments TSH, THIRD GENERATION (test >100.000 UIU/ML code = 2821) TSH, THIRD [id number] 00:00:00 Test Item Value Reference Range Interpretation Comments TSH, THIRD GENERATION (test >100.000 UIU/ML code = 2821) COMPREHENSIVE METABOLIC [id number] 00:00:00 Test Item Value Reference Range Interpretation Comments GLUCOSE (test code = 2217) 91 MG/DL BUN (test code = 2208) 4 MG/DL CREATININE (test code = 2214) 1.18 MG/DL eGFR (2020 CKD-EPI) (test code 59 ML/MIN/1.73 = 67283) CALC BUN/CREAT (test code = 3 RATIO [...] code = 2219) 16 U/L COMPREHENSIVE METABOLIC [id number] 00:00:00 Test Item Value Reference Range Interpretation Comments GLUCOSE (test code = 2217) 91 MG/DL BUN (test code = 2208) 4 MG/DL CREATININE (test code = 2214) 1.18 MG/DL eGFR (2020 CKD-EPI) (test code 59 ML/MIN/1.73 = 96963) CALC BUN/CREAT (test code = 3 RATIO [...] code = 2219) 16 U/L CBC W/AUTO [id number] 00:00:00 Test Item Value Reference Range Interpretation [...] NUCLEATED RBCS (test code = 0.00 K/UL 01797) CBC W/AUTO [id number] 00:00:00 Test Item Value Reference Range Interpretation [...] NUCLEATED RBCS (test code = 0.00 K/UL 56388) LIPID [id number] 00:00:00 Test Item Value Reference Range Interpretation Comments CHOLESTEROL (test code = 2210) 269 MG/DL TRIGLYCERIDES (test code = 2232) 111 MG/DL HDL CHOLESTEROL (test code = 2220) 42 MG/DL CALC LDL CHOL (test code = 2237) 202 MG/DL RISK RATIO LDL/HDL (test code = 4.81 RATIO 2238) CBC W/AUTO [id number] 00:00:00 Test Item Value Reference Range Interpretation [...] NUCLEATED RBCS (test code = 0.00 K/UL 49749) LIPID [id number] 00:00:00 Test Item Value Reference Range Interpretation Comments CHOLESTEROL (test code = 2210) 269 MG/DL TRIGLYCERIDES (test code = 2232) 111 MG/DL HDL CHOLESTEROL (test code = 2220) 42 MG/DL CALC LDL CHOL (test code = 2237) 202 MG/DL RISK RATIO LDL/HDL (test code = 4.81 RATIO 2238) LIPID [id number] 00:00:00 Test Item Value Reference Range Interpretation Comments CHOLESTEROL (test code = 2210) 269 MG/DL TRIGLYCERIDES (test code = 2232) 111 MG/DL HDL CHOLESTEROL (test code = 2220) 42 MG/DL CALC LDL CHOL (test code = 2237) 202 MG/DL RISK RATIO LDL/HDL (test code = 4.81 RATIO 2238) TSH, THIRD [id number] 00:00:00 Test Item Value Reference Range Interpretation Comments TSH, THIRD GENERATION (test >100.000 UIU/ML code = 2821) TSH, THIRD [id number] 00:00:00 Test Item Value Reference Range Interpretation Comments TSH, THIRD GENERATION (test >100.000 UIU/ML code = 2821) TSH, THIRD [id number] 00:00:00 Test Item Value Reference Range Interpretation Comments TSH, THIRD GENERATION (test >100.000 UIU/ML code = 2821) COMPREHENSIVE METABOLIC [id number] 00:00:00 Test Item Value Reference Range Interpretation Comments GLUCOSE (test code = 2217) 91 MG/DL BUN (test code = 2208) 4 MG/DL CREATININE (test code = 2214) 1.18 MG/DL eGFR (2020 CKD-EPI) (test code 59 ML/MIN/1.73 = 67079) CALC BUN/CREAT (test code = 3 RATIO [...] code = 2219) 16 U/L COMPREHENSIVE METABOLIC [id number] 00:00:00 Test Item Value Reference Range Interpretation Comments GLUCOSE (test code = 2217) 91 MG/DL BUN (test code = 2208) 4 MG/DL CREATININE (test code = 2214) 1.18 MG/DL eGFR (2020 CKD-EPI) (test code 59 ML/MIN/1.73 = 20410) CALC BUN/CREAT (test code = 3 RATIO [...] code = 2219) 16 U/L CBC W/AUTO [id number] 00:00:00 Test Item Value Reference Range Interpretation [...] NUCLEATED RBCS (test code = 0.00 K/UL 95868) CBC W/AUTO [id number] 00:00:00 Test Item Value Reference Range Interpretation [...] NUCLEATED RBCS (test code = 0.00 K/UL 95029) CBC W/AUTO [id number] 00:00:00 Test Item Value Reference Range Interpretation [...] NUCLEATED RBCS (test code = 0.00 K/UL 77255) LIPID [id number] 00:00:00 Test Item Value Reference Range Interpretation Comments CHOLESTEROL (test code = 2210) 269 MG/DL TRIGLYCERIDES (test code = 2232) 111 MG/DL HDL CHOLESTEROL (test code = 2220) 42 MG/DL CALC LDL CHOL (test code = 2237) 202 MG/DL RISK RATIO LDL/HDL (test code = 4.81 RATIO 2238) LIPID [id number] 00:00:00 Test Item Value Reference Range Interpretation Comments CHOLESTEROL (test code = 2210) 269 MG/DL TRIGLYCERIDES (test code = 2232) 111 MG/DL HDL CHOLESTEROL (test code = 2220) 42 MG/DL CALC LDL CHOL (test code = 2237) 202 MG/DL RISK RATIO LDL/HDL (test code = 4.81 RATIO 2238) TSH, THIRD [id number] 00:00:00 Test Item Value Reference Range Interpretation Comments TSH, THIRD GENERATION (test >100.000 UIU/ML code = 2821) TSH, THIRD [id number] 00:00:00 Test Item Value Reference Range Interpretation Comments TSH, THIRD GENERATION (test >100.000 UIU/ML code = 2821) [id number] 04:33:00 Test Item Value Reference Range Interpretation Comments APPEARANCE (test code = Clear Clear 4885764704) COLOR (test code = Yellow Yellow 7650644121) PH (test code = 4.8-8.0 7649101911) SP GRAVITY (test code = 1.003-1.030 H 7281173165) GLU U QUAL (test code = Normal Normal 7420588360) BLOOD (test code = Negative Negative 6603943222) KETONES (test code = Negative Negative 6246924838) PROTEIN (test code = Negative Negative 2887-8) UROBILIN (test code = Normal Normal 2880832546) BILIRUBIN (test code = Negative Negative 4449957330) NITRITE (test code = Negative Negative 2410724603) LEUK VY (test code = Negative Negative 6028692466) RBC/HPF (test code = See_Comment [Autom ated message] 9107503973) The system [employer] generated this result transmitted ref erence range: 0 - 3 HP F. The reference range was not used to int erpret this result as normal/abnormal . WBC/HPF (test code = <1 See_Comment [Autom ated message] 1393258746) The system [employer] generated this result transmitted ref erence range: 0 - 5 HP F. The reference range was not used to int erpret this result as normal/abnormal . BACTERIA (test code = Few Negative A 2475633837) SQ EPITH (test code = <1 HPF 2799117201) Lab Interpretation (test Abnormal code = 26203-6) [facility] [id number] 02:56:04Impression: 1. Patchy ground glass opacities, predominating [...] in appearance.4. Cholecystect rina.RL: 460End of Report [facility] 1 [id number] 02:20:50 Impression: No acute abnormalities evident. RL: [...] evident.RL: 460End of Report [facility] [id number] 01:29:00 Test Item Value Reference Range Interpretation Comments POCT PREG (test code = Hysterectomy HX of Hysterectomy 1605) Lab Interpretation Normal (test code = 16664-1) [facility] Hospital[facility]OVID[facility] (ID NOW RAPID TESTING)2020-05-31 01:23:00 Test Item Value Reference Range Interpretation Comments SARS-CoV-2 Rapid ID NOW Not Detected Not Detected (test code = 14452-0) JASMEET (test code = JASMEET) ID NOW COVID-19 Assay is an isothermal nucleic acid amplification test intended for the qualitative detection of nucleic acid from SARS-CoV-2 viral RNA in nasopharyngeal (ORDER BUILDER LOADER) specimens. It is used under Emergency Use [...] indicated. Lab Interpretation Normal (test code = 26045-8) [facility] HospitalTRDIANAN [id number] 00:41:00 Test Item Value Reference Range Interpretation Comments TROPONIN I (test <0.012 See_Comment [Automated code = 5451504286) message] The system which generated this result [...] ? Lab Interpretation Normal (test code = 20881-2) [facility]. METABOLIC PANEL (14762)2020-05-31 00:32:00 Test Item Value Reference Range Interpretation Comments NA (test code = 138 mmol/L 135-145 9787731172) K (test code = 4.0 mmol/L 3.5-5 3341220856) CL (test code = 101 mmol/L 98-108 5461484498) CO2 TOTAL (test code = 27 mmol/L 23-31 5352360980) AGAP (test code = 2-16 4632402793) BUN (test code = 5 mg/dL 7-23 L 9967461733) GLUCOSE (test code = 136 mg/dL 70-110 H 4923267319) CREATININE (test code = 0.56 mg/dL 0.5-1.04 5350181922) TOTAL BILI (test code = 0.4 mg/dL 0.1-1.6 8019824682) CALCIUM (test code = 9.0 mg/dL 8.6-10.6 9506094784) T PROTEIN (test code = 8.3 g/dL 6.3-8.2 H 7147413909) ALBUMIN (test code = 4.6 g/dL 3.5-5 5669535051) ALK PHOS (test code = 93 U/L 34-122 8100502426) ALTv (test code = 21 U/L 5-35 1742-6) AST(SGOT) (test code = 25 U/L 13-40 5144410212) eGFR Calculation mL/min/1.73m2 (Non-) (test code = 1633068061) eGFR Calculation mL/min/1.73m2 () (test code = 9558107613) JASMEET (test code = JASMEET) Association of [...] tests). Lab Interpretation Abnormal (test code = 41632-4) [facility] HospitalD-[id number] 00:30:00 Test Item Value Reference Interpretation Comments Range D-DIMER (test code = See_Comment H [Autom ated 0146106491) message] The system which generated this result [...] diagnosis. Lab Interpretation Abnormal (test code = 96053-9) [facility] WITH [id number] 00:13:00 Test Item Value Reference Range Interpretation Comments WBC (test code = See_Comment H [Automated 1290-2) message] The system which generated this result [...] RDW-SD (test code = 40.5 fL 39-49.9 36823-6) RDW-CV (test code = 12.2 % 12-15.5 788-0) PLT (test code = See_Comment [Automated 777-3) message] The system which generated this result transmit justino reference range : 166 - 358 10*3/ ?L. The reference range was not u sed to interpret th is result as normal/abnormal . MPV (test code = 9.4 fL 9.5-12.9 L 12416-6) NRBC/100 WBC (test See_Comment [Automat ed code = 9841724306) message] The system which generated this result transmit justino reference range : 0.0 - 10.0 /100 WBCs. The reference range was not used to interpret this result as normal/abnormal . NRBC x10^3 (test code <0.01 See_Comment [Auto mated = 0999746444) message] The system which generated this result transmit justino reference range : 10*3/?L. The reference range was not used to interpret this result as normal/abnormal . GRAN MAT (NEUT) % 93.5 % (test code = 770-8) IMM GRAN % (test code 0.80 % = 0193316062) LYMPH % (test code = 4.8 % 736-9) MONO % (test code = 0.6 % 5905-5) EOS % (test code = 0.1 % 713-8) BASO % (test code = 0.2 % 706-2) GRAN MAT x10^3(ANC) 13.73 10*3/uL 1.88-7.09 H (test code = 6670854359) IMM GRAN x10^3 (test 0.12 10*3/uL 0-0.06 H code = 6285195676) LYMPH x10^3 (test code 0.71 10*3/uL 1.32-3.29 L = 731-0) MONO x10^3 (test code 0.09 10*3/uL 0.33-0.92 L = 742-7) EOS x10^3 (test code = <0.03 0.03-0.39 L 711-2) BASO x10^3 (test code 0.03 10*3/uL 0.01-0.07 = 704-7) Lab Interpretation Abnormal (test code = 26192-9) [facility] History and Physical Notes Date/Time Note Provider Source 2022-06-22 Formatting of this note is different from the or iginal. [facility] 04:37:21-00:00 HOT Admit X History & Physical for HOT 1 Attending Admission History & Physical For overnight issues until 7 am on 06/22/22, please message Sugey Morales on [employer] Secure Chat. Assessment & Plan: Ms. Nolan [...] FT3 #Neurogenic bladder: Hernandez placed 02/2022 in [facility] ER without subsequent voiding trial or follow [...] Pending IP psych recs Sugey Morales MD [employer] Worker, [facility] Internal Medicine #[id number] Patient identified by verbal ly telling name, [...] proper range. Had a Hernandez placed in [facility] ER Feb 2022 due to her ch [...] and documented in the appropriate sections in [employer]. Medical: Reviewed No past medical history on [...] edema Neurologic: Mental status intact Data: Reviewed EMBEDDED Associated attestation - Chemo Al MD - 06/22/2022 10:29 AM RN EMBEDDED Chart reviewed Patient examined Psych consulted. Will likely be re-evaluated Saturday 06/24 to give some time to see effect of med changes recommended on admission. Nicotine patch ordered Rest of plan per Dr. Morales's note. Chemo Al MD [employer] Worker Section of General Internal Medicine, [place] [facility] [place] [id number] Notes Date/Time Note Provider Source 2022-11-10 [facility] 08:03:31-00:00 Approving, but needs appt for additional refills . System Electronically signed by Vishnu Palmer MD at 8:03 AM CDT 2022-10-02 [facility] 08:30:52-00:00 Approving, but needs appt for additional refills . System Electronically signed by Vishnu Palemr MD at 02/2023 8:30 AM CDT 2022-08-05 Addended by: VISHNU PALMER on: 08/05/2022 01:56 P M [facility] 09:40:00-00:00 System Modules accepted: Orders Electronically signed by Vishnu Palmer MD at 1:56 PM CDT 2022-06-24 Formatting of this note might be differe nt from the original. Abby Prakash RN [facility] 16:12:00-00:00 Explained discharge instruct ions to patient and (eHladio) at the bedside, gave pt follow up [...] no distress. No needs at this time. EMBEDDED 2022-06-24 [facility] 16:12:00-: System Problem: Suicidal Thoughts Goal: [...] heard in lung hunt, edema). Collaborate w [facility] interdisciplinary team and initiate plan and [...] to perform desired activities. Outcome: Resolved [facility] 2022-06-24 Formatting of this note is different fro m the original. La Dillon RN [facility] 12:58:36-00:00 Problem: Psychosocial/Initial Assessment/Dischar ge Planning [...] but still has some anxiety. Clinical Nurse Picking Belt Operator reviewed chart, met the patient at bedside, [...] Source of Information Patient County of Residence [place] Country [place] Immigration Status: [place] Citizen Behavior Alert;Oriented Health Care Concerns Change in health care statu s Discharge Planning Assessment Current Residence Apartment (Patient stated she lives wi th her spouse, [facility] address, [address], [place] [address] and will return to the aforementioned address.) Current Household Composition Spouse / significa nt other Current Support System & Ani ticipated Discharge Support System Immediate family;Significant other Current Home Care Services No Current DME Services Yes Type of DME at Home Wheelchair Current Provider Services No Patient Expects to be Discharged to: Apartment (Patient stated she lives wi th her spouse, [facility] address, [address], [place] [address] and will return to the aforementioned address.) Anticipated Discharge Support System Significant other;Immediate family Transportation on discharge Family/Friend Name/phone number Heladio Nolan - [phone] Transportation for follow-up appointments Family /Friend Name/phone number Heladio Nolan - [phone] General Family Information Patient Marital Status Income [...] lives wit h her spouse, [facility] address, [address] [address] and will return to the aforementioned address. Transportation: todd Nolan - [phone] Support/Contact information: todd Hdz [phone] Basic Needs: Medical Insurance: Self pay screened [facility] eligibility: Self pay screened DME: wheelchair Home Health: None Provide Service: None Medical home/Clinic: [facility] Preferred Pharmacy: [facility] Community Resources: No comm unity resource needs identified by the patient at this time. Mental Health: Psyche team is seeing the patient Substance abuse: Tobacco: Yes Alcohol:Denies Illegal Drugs:Denies Plan for Medication Pickup: Patient is enrolled in Meds to Bed program.Medication will be delivered to bedside at the time of discharge. Evaluation: CNCM met the patient at [facility] and discussed about the discharge plans, see above. Patient had no other questions or concerns at th is time. CNCM will continue to collab orate with the patient and Interdisciplinary team concerning discharge needs. Thank you, Laurie Dillon, MSN, RNC, ACM-RN, NPD-BC Clinical Nurse Picking Belt Operator II [place] [facility] 2022-06-24 Formatting of this note is different fro david the original. Nichelle Espinoza [facility] 08:09:59-00:00 RN System 06/24/22 0808 Intervention Financial Needs Financial Counseling (SELF-PAY SCREENED) Disease Management Meets criteria for Outpatient (h/o SI, RA ,neurogenic blad khanh with chronic Hernandez, hypothyroidism, insomnia, vision impairment, functional limitations from impaired ADLs who is admitted for suicidal ideation. Psych on board, increasing Lexapro and Trazodone dose, 1:1 sitter) Medical Necessity Screening Observation review ([id number].Obs > 52 hrs) Nichelle NATH-CROWN IRONER OPERATOR Observation Clinical Nurse Picking Belt Operator Hours: 0730- 1600 ID # [id number] [facility] 2022-06-24 Formatting of this note might be differe nt from the original. Mai Torres RN [facility] 05:05:23-00:00 System Problem: Falls / Injury [...] Met This Shift Electronically signed by Mai Torres, RN at 0 06/24/2022 5:05 AM [facility] 2022-06-23 Formatting of this note might be differe nt from the original. Sunny Wells [facility] 14:35:04-00:00 RN System Problem: Hospital Acquired [...] result in self-injury. Outcome: Met This Shift EMBEDDED 2022-06-23 Formatting of this note is different fro m the original. Jocelyne Pat [facility] 13:18:18-00:00 Nutrition Assessment [facility] Nutrition recs below in blue [...] wt Estimated Nutrition Needs (IBW: 70.4kg): Calories: 1795-7010 kcal/day (25-30 kcal/kg) Protein: 70-92 g/day (1-1.3 g/kg) Fluid: ~ 5111-5953 mL/day (1 mL/kcal) or per MD order [...] follow-up per nutrition protocol. Jocelyne Lan RD, GONZALO Clinical Dietitian II #[id number] Pager: [phone] Office: [phone] [facility] 2022-06-23 [facility] 06:05:02-00:00 System Problem: Suicidal Thoughts Goal: [...] Torres RN at 0 06/23/2022 6:05 AM RN EMBEDDED 2022-06-22 Formatting of this note might be differe nt from the original. Jef Mcmahon [facility] 20:40:05-00:00 Chart reviewed for medical n ecessity and hospitalization. Per [facility] [place] [place] guideline, no changes for observation status. [place] RN System Jennifer MC, RN EC Clinical Nurse Picking Belt Operator Clinical Case Management [facility] EMBEDDED 2022-06-22 [facility] 18:40:05-00:00 System Problem: Suicidal Thoughts Goal: [...] heard in lung hunt, edema). Collaborate w [facility] interdisciplinary team and initiate plan and [...] or i mproved Outcome: Met This Shift EMBEDDED 2022-06-22 Formatting of this note might be differe nt from the original. Jessica Meng [facility] 17:56:39-00:00 1:1 staff noticed pt scratch ing [...] Jessica Meng at 0 06/22/2022 6:45 PM RN EMBEDDED 2022-06-22 [facility] 17:36:00-00:00 Went to the bedside to [...] e. Will continue to monitor patient. [facility] 2022-06-22 [facility] 13:53:00-00:00 Pt arrived from , received report from LIZZY Clinton. Pt came with and 1:1 sitter at the bedside. Pt is AOX4 in no distress. Oriented pt to room, call light at the bedside, 3/4 side rails up, suicide precautions in place. System [facility] 2022-06-22 Formatting of this note might be differe nt from the original. Susi Clinton [facility] 11:47:28-00:00 Pt remains in stretcher, sta [...] Susi Clinton at 06/22 11:50 AM [facility] 2022-06-22 Formatting of this note is different fro m the original. Gisela Alejandra RN [facility] 09:24:08-00:00 Chart reviewed for medical necessity and hospita lization System 06/22/22 0923 Intervention Disease Management Meets criteria for Outpatient (Continue 1: 1 sitter, Psychiatry is following.) Medical Necessity Screening Concurrent review;Ob servation review ([id number]) LOS : 4 Hours. Giseal Alejandra MSN, ACM-RN Clinical Nurse Picking Belt Operator [facility] | [address] | [place] [address] P: [phone] |F: [phone]| Electronically signed by Gisela Alejandra RN at 9:24 AM RN EMBEDDED 2022-06-22 [facility] 07:30:00-00:00 Assumed care of 42y.o. male. Name and verified by patient and armband. Pt presents to EC for SI. Pt states she wants to slit her wrist or use a gun because she feels useless. Pt tried to go to [facility] ut was denied due to [...] by Susi Clinton at 06/22 9:00 AM [facility] 2022-06-22 [facility] 06:08:37-00:00 Pt is resting at this time a nd states she has anxiety and cant sleep. Pt states " I wish I had my laptop to play my anime movies that usually calms me down". Pt is resting with sitter and is not in distress at this time. Pt is alert. System Electronically signed by Eliot Arnett at 023 6:11 AM [facility] 2022-06-22 Formatting of this note is different from the or iginal. [facility] 03:59:27-00:00 [facility] System Initial Psychiatric Evaluation Legend: SI - suicidal ideation HI - homicidal ideaton AH - auditory visual hallucinations VH - visual hallucinations CAH - command auditory hallucinations SA - suicide attempt RTIS - responding to internal stimuli MICHAEL - unable to assess BIB - brought in by H/O- history of PCH- personal chcf HLE- highest level of education SIMD- substance [...] months because there was nobody to ta willi care of her when he is no [...] and bipolar disorder Social History: lives with johnny ledbetterband her two children and 2yo grandson. Has 5 children. Multiple health issues since her 20's. Doesn't quality for disability. 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 Reports fam aneudy on the verge of ?eviction. Lives one hour aw ay in [place] Legal History: none Comprehensive Single System Examination- [...] for: HAVIGM, HCV No components found for: [id number] No results found for: FOLATE No results [...] at hs Consult IP, psych consult team [phone] Signature: Juana Gomez MD Glueline Worker Psychiatry [facility] [id number] Electronically signed by Juana Gomez MD at 0 06/22/2022 4:32 AM [facility] 2022-06-22 [facility] 02:15:53-00:00 Pt is resting with sitter be dside. Pt is not in distress at this time System Electronically signed by Eliot Arnett at 023 2:16 AM [facility] 2022-06-21 Formatting of this note is different from the or iginal. [facility] 23:10:03-00:00 MEDICAL STABILITY FOR PSYCHIATRIC DISPOSITION NO TE System Patients eligible for transfer to the Psychiatri c EC: 1) Have the capacity to consent and have agreed to voluntary transfer or 2) Have a valid signed police packet or 3) Have a court approved Emergency Long Term Ord er. Excluded patients from trans keyanna [...] finger stick blood glucose) No Disposition/placement in [facility] facility for non-psychiatric reasons No greater than 36 weeks gestation No HAYDEE requiring CPAP No I evaluated the patient Alvarez andreiaandrés Nolan and conducted a Medical Screening Examination. [...] this time for psychiatric disposition. Charli Chaudhari, ResidentMD June 21, 2022 11:10 PM EMBEDDED 2022-06-21 Formatting of this note might be differe nt from the original. Gustavo Sade [facility] 22:36:06-00:00 Pt in bed with at bed side NAD [place] [facility] EMBEDDED 2022-06-21 Formatting of this note is different fro m the original. Emergency Medicine [facility] 22:17:09-00:00 System History Chief Complaint Patient [...] Plan to overdose w/ help of family MC [YE] Sat Jun 22, 2022 0435 Discussed [...] above. - None Consults: - Consult to EC psych Dispo: Pending labs, EC psych, reassessment Charli Chaudhari MD [facility] Emergency Medicine, PGY-1 06/21/22 10:30 PM [facility] #[id number] Suicidal behavior without at tempted self-injury: complicated acute illness or injury Amount and/or Complexity of Data Reviewed Labs: ordered. Clinical Impression 1. Suicidal behavior without attempted self-inju ry Charli Chaudhari ResidentMD Resident 06/21/222236 Charli Chaudhari ResidentMD Resident 06/21/222236 EMBEDDED Associated attestation - Canelo Martinez MD - 06/22/2022 11:08 AM RN EMBEDDED Formatting of this note is different from [...] MD June 22, 2022 11:05 AM 2022-06-21 [facility] 20:11:35-00:00 Destinee Nolan is a 42y.o. f emale presents to [facility] for SI.Pt states she would slit her wrist or use a gun. Pt tried to go to [facility] but due to her medical condition she [...] by Eliot Arnett at 023 8:13 PM RN EMBEDDED 2022-06-21 [facility] 17:57:17-00:00 "green check to 3" called oscar mares with activation at 7259. Security notified of patient needing wanding per protocol. Psych lead notified of patient needing 1:1 sitter d/t SI complaints. Emir hernandez Pt spouse with patient d/t p t sig medical hx. Pt has hx of "5 strokes, neurogenic bladder, seizures, hernandez cath in place." EMBEDDED
[2022-12-31] MEDS ORDERED: NALOXONE 0.4 MG/ML VIAL ONE (18:36)
[2022-12-31] MEDS ORDERED: NALOXONE HCL 2 MG/2 ML VIAL ONE (18:40)
[2022-12-31 19:04] LABS: Absolute Lymphocytes (CBC) 1.3 K/uL (0.7-4.9); Hematocrit 34.5 % (36.0-45.0); Lymphocytes % 10.8 % (15.3-44.8); MCV 88.7 fL (80-100); MPV 7.8 fL (7.6-11.3); Platelets 200 thou/uL (152-406); RBC Red Blood Cell Count 3.89 M/uL (3.86-4.86)
[2022-12-31 19:11] LABS: Protime INR 1.09
[2022-12-31 19:33] LABS: ALT/SGPT 13 U/L (13-56); AST/SGOT 9 U/L (15-37); Albumin 2.9 g/dL (3.4-5.0); Alkaline Phosphatase 66 U/L (45-117); BUN Blood Urea Nitrogen 4 mg/dL (7-18); Bicarbonate 26 mEq/L (21-32); Bilirubin Total 0.3 mg/dL (0.2-1.0); Glomerular Filtration Rate 117 ml/min (=/>90); Glucose Level 93 mg/dL (74-106); Potassium 3.6 mEq/L (3.5-5.1); Protein, Total 6.9 g/dL (6.4-8.2); Sodium Level 136 mEq/L (136-145)
[2022-12-31 19:35] LABS: Barbiturates NEGATIVE (NEGATIVE); Benzodiazepines NEGATIVE (NEGATIVE); Cocaine NEGATIVE (NEGATIVE); METHAMPHETAM NEGATIVE (NEGATIVE); Methadone NEGATIVE (NEGATIVE); Opiates NEGATIVE (NEGATIVE); Phencyclidine NEGATIVE (NEGATIVE); THC Cannibis NEGATIVE (NEGATIVE)
[2022-12-31 19:44] LABS: Bilirubin Direct < 0.1 mg/dL (0-0.2); Bilirubin Indirect, Calculated ND mg/dL (0.2-0.8)
[2022-12-31 20:17] LABS: Specific Gravity 1.012 (1.005-1.030); Urine Bacteria 20-50 /HPF (<20); Urine Bilirubin NEGATIVE (Negative); Urine Blood Negative (Negative); Urine Clarity Extremely Turbid (Clear); Urine Color Light-Yellow (Yellow); Urine Glucose NEGATIVE (Negative); Urine Mucus Slight /HPF (None Seen); Urine Protein NEGATIVE (Negative); Urine Urobilinogen Normal (Normal)
--- NOTE | 2022-12-31 20:20 | RAD REPORT ---
EXAM DESCRIPTION: CT - CTHCSPWOC - 12/31/2022 7:59 pm CLINICAL HISTORY: AMS;Weakness COMPARISON: Neck Angio dated 09/29/2022; Neck Angio dated 08/25/2022; Neck Angio dated 05/01/2021 TECHNIQUE: Axial thin cut noncontrast CT images of the head were obtained. Axial thin cut noncontrast CT images of the cervical spine were obtained. Multiplanar reformatted images were generated and reviewed. All CT scans are performed using dose optimization technique as appropriate and may include automated exposure control or mA/KV adjustment according to patient size. FINDINGS: CT HEAD WITHOUT CONTRAST: No acute hemorrhage, hydrocephalus or extra-axial collection is identified.No areas of brain edema or midline shift. The paranasal sinuses and mastoids are clear.The calvarium is intact. CT CERVICAL SPINE WITHOUT CONTRAST: No fracture or subluxation.No prevertebral soft tissues swelling is identified. Secretions versus po lypoidal lesion along the right posterior wall of the trachea. IMPRESSION: No acute traumatic intracranial or cervical spine findings. Secretions versus polypoidal lesion along the right posterior wall of the trachea.
--- NOTE | 2022-12-31 21:22 | ER ---
Nurse's Notes [facility] Name: Naz Boyle Age: 42 yrs Sex: Female : 1980 Arrival Date: 12/31/2022 Time: 18:13 Bed 3 Private MD: Diagnosis: Altered mental status, unspecified-Possible OD Presentation: 12/31 18:18 Chief complaint: EMS states: toned out to patient home for being found unresponsive. ld1 Family reports SI history. Coronavirus screen: At this time, the client does not indicate any symptoms associated with coronavirus-19. Ebola Screen: No symptoms or risks identified at this time. Initial Sepsis Screen: Does the patient meet any 2 criteria? No. Patient's initial sepsis screen is negative. Does the patient have a suspected source of infection? No. Patient's initial sepsis screen is negative. Risk Assessment: Do you want to hurt yourself or someone else? Patient reports no desire to harm self or others. Onset of symptoms was December 31, 2022. 18:18 Method Of Arrival: EMS: [facility] ld1 18:18 Acuity: MIGUEL 2 ld1 Triage Assessment: 18:21 General: Appears unkempt, Behavior is inappropriate for age, unresponsive. Pain: Unable ld1 to use pain scale. Patient is unresponsive. EENT: No signs and/or symptoms were reported regarding the EENT system. Neuro: Level of Consciousness is unresponsive, Oriented to person, none. Cardiovascular: Capillary refill < 3 seconds Patient's skin is warm and dry. Rhythm is sinus rhythm. Respiratory: Airway is patent Respiratory effort is even, unlabored. GI: Abdomen is round non-distended. : No signs and/or symptoms were reported regarding the genitourinary system. : Hernandez in place to gravity drainage Urine is cloudy. Derm: No signs and/or symptoms reported regarding the dermatologic system. Musculoskeletal: No signs and/or symptoms reported regarding the musculoskeletal system. Historical: - Allergies: 18:21 Prednisone; ld1 - Home Meds: 19:46 trazodone 100 mg oral tablet 4 tabs every day at bedtime [Active]; buspirone 10 mg Oral lg3 tablet 3 times per day [Active]; gabapentin 300 mg oral capsule daily [Active]; rosuvastatin 10 mg oral Capsule, Sprinkle daily [Active]; midodrine 2.5 mg oral tablet 3 times per day [Active]; Unithroid 50 mcg oral tablet daily [Active]; prazosin 2 mg Oral capsule every day at bedtime [Active]; lacosamide 50 mg oral tablet 2 times per day [Active]; fluoxetine 20 mg Oral capsule 3 caps daily [Active]; levetiracetam 750 mg oral tablet 2 tabs 2 times per day [Active]; - PMHx: 18:21 BRADYCARDIA; hypotension; PERIPHERAL NEUROPATHY; RA; Seizure; RLS; SVT; Lupus ld1 erythematosus; Hypercholesterolemia; Hypothyroidism; CVA; Migraine; - PSHx: 18:21 Carpal tunnel luis miguel; Cholecystectomy; hysterectomy; Appendectomy; ld1 - Immunization history:: Adult Immunizations up to date. - Social history:: Smoking status: unknown. Screenin:23 [facility] ED Fall Risk Assessment (Adult) History of falling in the last 3 months, ld1 including since admission No falls in past 3 months (0 pts). Abuse screen: Denies threats or abuse. Denies injuries from another. Nutritional screening: No deficits noted. Tuberculosis screening: No symptoms or risk factors identified. Assessment: 18:23 Reassessment: See triage assessment. ld1 18:56 Reassessment: No change from prior assessment. Pt still not responsive. ERP at bedside. ld1 19:13 General: Behavior is unresponsive. Pain: Unable to use pain scale. Patient is lg3 unresponsive. Neuro: Level of Consciousness is unresponsive, Pupils are constricted, pinpoint. Cardiovascular: Capillary refill < 3 seconds Clubbing of nail beds is absent JVD is absent Patient's skin is warm and dry. Respiratory: No deficits noted. Airway is patent Respiratory effort is even, unlabored, Respiratory pattern is regular, symmetrical. GI: No deficits noted. Abdomen is round non-distended. : Hernandez in place to gravity drainage. EENT: No deficits noted. Derm: No deficits noted. Skin is intact, is healthy with good turgor, Skin is dry, Skin is normal, Skin temperature is warm. 20:56 General: Appears in no apparent distress. comfortable, Behavior is calm, flat. Pain: lg3 Complains of pain in head. Neuro: Alvarado Agitation-Sedation Scale (RASS): -1 Drowsy Level of Consciousness is awake, obeys commands, lethargic, Oriented to person, place, Speech is slurred. Cardiovascular: No deficits noted. Denies chest pain, shortness of breath. Respiratory: No deficits noted. Airway is patent Respiratory effort is even, unlabored, Respiratory pattern is regular, symmetrical, Denies shortness of breath. GI: No deficits noted. No signs and/or symptoms were reported involving the gastrointestinal system. : No signs and/or symptoms were reported regarding the genitourinary system. EENT: No deficits noted. No signs and/or symptoms were reported regarding the EENT system. Derm: No deficits noted. No signs and/or symptoms reported regarding the dermatologic system. Skin is intact, is healthy with good turgor, Skin is dry, Skin is normal, Skin temperature is warm. Musculoskeletal: No signs and/or symptoms reported regarding the musculoskeletal system. pt quadriplegic. 21:20 Reassessment: Patient appears in no apparent distress at this time. Patient and/or jb4 family updated on plan of care and expected duration. Pain level reassessed. Patient is alert, oriented x 3, equal unlabored respirations, skin warm/dry/pink. Denies SI or Hi at this time. Denies SI attempt prior to coming to hospital. 21:46 General: Appears in no apparent distress. comfortable, Behavior is calm, cooperative. lg3 Pain: Complains of pain in head Pain currently is 2 out of 10 on a pain scale. Is chronic. Neuro: No deficits noted. Alvarado Agitation-Sedation Scale (RASS): 0 - Alert and Calm Level of Consciousness is awake, alert, obeys commands, Oriented to person, place, time, situation, Pupils are PERRLA. Cardiovascular: No deficits noted. Denies chest pain, shortness of breath, Capillary refill < 3 seconds Clubbing of nail beds is absent JVD is absent Patient's skin is warm and dry. Respiratory: No deficits noted. Airway is patent Respiratory effort is even, unlabored, Respiratory pattern is regular, symmetrical. GI: No deficits noted. No signs and/or symptoms were reported involving the gastrointestinal system. : No deficits noted. No signs and/or symptoms were reported regarding the genitourinary system. EENT: No deficits noted. No signs and/or symptoms were reported regarding the EENT system. Derm: No deficits noted. No signs and/or symptoms reported regarding the dermatologic system. Skin is intact, is healthy with good turgor, Skin is dry, Skin is normal, Skin temperature is warm. Vital Signs: 18:18 BP 112 / 69; Pulse 71; Resp 17; Temp 99.1(A); Pulse Ox 96% on R/A; Weight 88 kg; Height ld1 5 ft. 6 in. ; Pain 0/10; 18:56 BP 101 / 71; Pulse 70; Resp 20; Pulse Ox 94% on R/A; ld1 19:13 BP 101 / 67; Pulse 69; Resp 15 S; Pulse Ox 94% on R/A; lg3 20:59 BP 109 / 82; Pulse 64; Resp 15; Pulse Ox 94% on R/A; jb4 21:46 BP 104 / 66; Pulse 65; Resp 17 S; Pulse Ox 97% on R/A; lg3 18:18 Body Mass Index 31.31 (88.00 kg, 167.64 cm) ld1 18:18 Pain Scale: Adult ld1 ED Course: 18:14 Patient arrived in ED. bd 18:21 Darren Vasquez MD is Attending Physician. kdr 18:21 Triage completed. ld1 18:21 Arm band placed on right wrist. ld1 18:23 Patient has correct armband on for positive identification. Placed in gown. Bed in low ld1 position. Call light in reach. Side rails up X2. position classification manager on. Pulse ox on. NIBP on. Door closed. Noise minimized. Warm blanket given. 18:23 Maintain EMS IV. Dressing intact. Good blood return noted. Site clean \T\ dry. Gauge \T\ ld 1 site: 18G LH. 18:55 Princess Hdez RN is Primary Nurse. ld1 18:55 Urinalysis w/ reflexes Sent. ld1 18:55 Urine Drug Screen Sent. ld1 18:56 Inserted saline lock: 20 gauge in right antecubital area, using aseptic technique. ld1 Blood collected. 20:00 CT Head C Spine In Process Unspecified. EDMS 20:56 Family accompanied patient. lg3 21:46 No provider procedures requiring assistance completed. IV discontinued, intact, lg3 bleeding controlled, No redness/swelling at site. Pressure dressing applied. Administered Medications: 18:31 Drug: Naloxone IVP 0.4 mg Route: IVP; Site: left hand; ld1 21:46 Follow up: Response: No adverse reaction lg3 21:46 Drug: Trimethoprim-Sulfamethoxazole PO (160 mg-800 mg (DS) 1 tablet Route: PO; lg3 21:46 Follow up: Response: No adverse reaction lg3 Medication: 21:46 VIS not applicable for this client. lg3 Outcome: 21:21 Discharge ordered by . kdr 21:46 Discharged to home via wheelchair, with significant other. lg3 21:46 Condition: stable 21:46 Discharge instructions given to patient, significant other, Instructed on discharge instructions, follow up and referral plans. medication usage, Demonstrated understanding of instructions, follow-up care, medications, Prescriptions given X 1. 21:50 Patient left the ED. lg3 Signatures: Dispatcher [employer] EDMS Conchita Mejia Kevin, MD MD kdr Jairo Raya RN RN jb4 Tonya Grimes RN RN lg3 Princess Hdez RN RN ld1
--- NOTE | 2022-12-31 21:22 | EDPHYS ---
Physician Documentation [facility] Name: Naz Boyle Age: 42 yrs Sex: Female : 1980 Arrival Date: 12/31/2022 Time: 18:13 Bed 3 Private MD: ED Physician Darren Vasquez HPI: 12/31 20:39 This 42 yrs old Female presents to ER via EMS with complaints of Unresponsive. kdr 20:39 The patient's states that she was in her usual state of health during the day. kdr Later this afternoon, she had been on the phone with [facility] scheduling some endocrinology appointments. After that he was helping her get up and around a little bit. 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 During that process, she suddenly became poorly responsive. He thought perhaps she was just overly sleepy and later down. After another 5 to 10 minutes, she seemed to be not improving and so he called EMS at that time. Patient presented to the ED unresponsive. She had been given Narcan by EMS without improvement. Patient otherwise vital signs were stable and appropriate and her airway seem protected. There is no sign of trauma. Patient was not responsive to sternal rub.. Onset: The symptoms/episode began/occurred suddenly, just prior to arrival. Severity of symptoms: At their worst the symptoms were mild moderate just prior to arrival, in the emergency department the symptoms are unchanged. It is unknown whether or not the patient has had similar symptoms in the past. The patient has been recently seen by a physician: the patient's primary care provider. Historical: - Allergies: 18:21 Prednisone; ld1 - Home Meds: 19:46 trazodone 100 mg oral tablet 4 tabs every day at bedtime [Active]; buspirone 10 mg Oral lg3 tablet 3 times per day [Active]; gabapentin 300 mg oral capsule daily [Active]; rosuvastatin 10 mg oral Capsule, Sprinkle daily [Active]; midodrine 2.5 mg oral tablet 3 times per day [Active]; Unithroid 50 mcg oral tablet daily [Active]; prazosin 2 mg Oral capsule every day at bedtime [Active]; lacosamide 50 mg oral tablet 2 times per day [Active]; fluoxetine 20 mg Oral capsule 3 caps daily [Active]; levetiracetam 750 mg oral tablet 2 tabs 2 times per day [Active]; - PMHx: 18:21 BRADYCARDIA; hypotension; PERIPHERAL NEUROPATHY; RA; Seizure; RLS; SVT; Lupus ld1 erythematosus; Hypercholesterolemia; Hypothyroidism; CVA; Migraine; - PSHx: 18:21 Carpal tunnel luis miguel; Cholecystectomy; hysterectomy; Appendectomy; ld1 - Immunization history:: Adult Immunizations up to date. - Social history:: Smoking status: unknown. ROS: 20:39 Constitutional: On obtainable secondary to the patient's altered mental status Eyes: kdr Negative for injury, pain, redness, and discharge, ENT: Negative for injury, pain, and discharge, Neck: Negative for injury, pain, and swelling, Cardiovascular: Negative for chest pain, palpitations, and edema, Respiratory: Negative for shortness of breath, cough, wheezing, and pleuritic chest pain. 20:39 Unable to obtain ROS due to altered mental status, obtunded state. Exam: 20:39 Constitutional: This is a well developed, well nourished patient who is awake, alert, kdr and in no acute distress. Head/Face: Normocephalic, atraumatic. 20:39 Eyes: Patient's eyes are constricted and poorly responsive. Initially she seemed to have limited tracking when her eyelids were held open.. Vital Signs: 18:18 BP 112 / 69; Pulse 71; Resp 17; Temp 99.1(A); Pulse Ox 96% on R/A; Weight 88 kg; Height ld1 5 ft. 6 in. ; Pain 0/10; 18:56 BP 101 / 71; Pulse 70; Resp 20; Pulse Ox 94% on R/A; ld1 19:13 BP 101 / 67; Pulse 69; Resp 15 S; Pulse Ox 94% on R/A; lg3 20:59 BP 109 / 82; Pulse 64; Resp 15; Pulse Ox 94% on R/A; jb4 21:46 BP 104 / 66; Pulse 65; Resp 17 S; Pulse Ox 97% on R/A; lg3 18:18 Body Mass Index 31.31 (88.00 kg, 167.64 cm) ld1 18:18 Pain Scale: Adult ld1 MDM: 20:39 Data reviewed: vital signs, nurses notes. ED course: Patient continues to become less kdr obtunded and is responding now to questions from the . When he asked her if she want to go home she was able to shake her head yes. Her eyes over still closed and she was nonverbal. I indicated to the that the patient would have to become much closer to her baseline state prior to being discharged. Patient's laboratory data does not support any obvious overdose or known substance abuse. We will continue to observe the patient for improvement and possible discharge. 21:21 Patient medically screened. [facility] 12/31 18:29 Order name: Acetaminophen; Complete Time: 20:32 kdr 12/31 18:29 Order name: Basic Metabolic Panel; Complete Time: 20:32 kdr 12/31 18:29 Order name: CBC with Diff; Complete Time: 19:14 kdr 12/31 18:29 Order name: ETOH Level; Complete Time: 20:32 [facility] 12/31 18:29 Order name: Hepatic Function; Complete Time: 20:32 [facility] 12/31 18:29 Order name: PT-INR; Complete Time: 19:14 [facility] 12/31 18:29 Order name: Ptt, Activated; Complete Time: 19:14 [facility] 12/31 18:29 Order name: Salicylate; Complete Time: 20:32 kdr 12/31 18:29 Order name: Urinalysis w/ reflexes; Complete Time: 20:32 kdr 12/31 18:29 Order name: Urine Drug Screen; Complete Time: 20:32 [facility] 12/31 20:21 Order name: Urine Culture [facility] 12/31 19:14 Order name: CT Head C Spine; Complete Time: 20:32 [facility] 12/31 18:29 Order name: EKG; Complete Time: 18:29 [facility] 12/31 18:29 Order name: EKG - Nurse/Tech; Complete Time: 18:31 kdr 12/31 18:29 Order name: IV Saline Lock; Complete Time: 18:31 kdr 12/31 18:29 Order name: Labs collected and sent; Complete Time: 18:55 kdr 12/31 18:29 Order name: Suicide Screening ([place]); Complete Time: 21:20 kdr Administered Medications: 18:31 Drug: Naloxone IVP 0.4 mg Route: IVP; Site: left hand; ld1 21:46 Follow up: Response: No adverse reaction lg3 21:46 Drug: Trimethoprim-Sulfamethoxazole PO (160 mg-800 mg (DS) 1 tablet Route: PO; lg3 21:46 Follow up: Response: No adverse reaction lg3 Disposition Summary: 12/31/22 21:21 Discharge Ordered Location: Home kdr Problem: new kdr Symptoms: have improved kdr Condition: Stable kdr Diagnosis - Altered mental status, unspecified - Possible OD kdr Followup: kdr - With: Private Physician - When: 2 - 3 days - Reason: If symptoms return, Further diagnostic work-up, Recheck today's complaints, Continuance of care, Re-evaluation by your physician Discharge Instructions: - Discharge Summary Sheet kdr - Confusion kdr - Urinary Tract Infection, Adult, [id number] kdr - Intentional Drug Overdose kdr Forms: - Medication Reconciliation Form kdr - Thank You Letter kdr - Patient Portal Instructions kdr Prescriptions: - Bactrim DS 800-160 mg Oral Tablet - take 1 tablet by ORAL route every 12 hours for 7 days; 14 tablet; Refills: 0, kdr Product Selection Permitted Signatures: Dispatcher [employer] Darren Martin MD MD kdr Tonya Grimes RN RN lg3 Princess Hdez RN RN ld1
[2022-12-31] MEDS ORDERED: SMZ./TMP. 800/160 MG TABLET ONE (21:52)
[2022-12-31 22:33] VITALS: TEMP 99.1
[2022-12-31 22:39] VITALS: BP 104/66; O2SAT 97
--- NOTE | 2023-01-01 18:08 | EKG ---
Test Date: 2022-12-31 Test Time: 18:28:25 Insulation Technician: MEASUREMENT RESULTS: Intervals: Rate: 74 MN: 130 QRSD: 80 QT: 422 QTc: 468 [place]: P: 51 MN: 130 QRS: 67 T: 10 INTERPRETIVE STATEMENTS: Normal sinus rhythm Nonspecific T wave abnormality Prolonged QT Abnormal ECG Compared to ECG 12/20/2022 17:10:41 T-wave abnormality now present Prolonged QT interval now present Electronically Signed On 01-01-23 18:07:08 CDT by Severiano Cohen
== END 2022-12-31 21:50 | disposition home or self-care (01) ==
LOC: ER 18:13
DX: R41.82 Altered mental status, unspecified (principal); Z88.8 Allergy status to other drugs, medicaments and biological substances
CPT/HCPCS: 36415; 70450; 72125; 80048; 80076; 80143; 80179; 80307; 81001; 82077; 85025; 85610; 85730; 87086; 87088; 93005; 96374; 99291; 99292; J2310

== ENCOUNTER 2023-04-25 16:11 | Inpatient (IN) | payer SELFPAY ==
--- OUTSIDE RECORDS SUMMARY | 2023-04-25 16:26 | XMS REPORT | Continuity of Care Document ---
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 busPIRone 2023-0 2023- No Anxiety and TAKE ONE Suresh (BUSPAR) 5 5-10 -18 depression TABLET BY [facility] mg tablet 00:00: 00:00 MOUTH 00 :00 THREE TIMES A DAY busPIRone 2023-0 2023- No Anxiety and TAKE ONE Suresh (BUSPAR) 5 5-10 06-18 depression TABLET BY Health mg tablet 00:00: 00:00 MOUTH 00 :00 THREE TIMES A DAY busPIRone 2023-0 2023- No Anxiety and TAKE ONE Suresh (BUSPAR) 5 5-10 06-18 depression TABLET BY Health mg tablet 00:00: 00:00 MOUTH 00 :00 THREE TIMES A DAY busPIRone 2023-0 2023- No Anxiety and TAKE ONE Suresh (BUSPAR) 5 5-10 06-18 depression TABLET BY Health mg tablet 00:00: 00:00 MOUTH 00 :00 THREE TIMES A DAY aspirin 81 2022-0 Yes 81mg Take 81 mg [facility] mg delayed 4-03 by mouth Healt h release 20:55: tablet 54 gabapentin 2022-0 Yes 100mg Take 100 [facility] (NEURONTIN) 4-03 mg by Health 100 [...] 2022-0 Yes 5mg Q.5D Take 5 mg [facility] (DITROPAN) 4-03 by mouth 2 [facility] 5 mg tablet 20:55: times 54 daily gabapentin 2022-0 Yes 300mg Take 300 [facility]ris (NEURONTIN) 4-03 mg by [facility] 300 mg 20:55: mouth capsule 54 every evening aspirin 81 2022-0 Yes 81mg Take 81 mg [facility] mg delayed 4-03 by mouth Healt h release 20:55: tablet 54 gabapentin 2022-0 Yes 100mg Take 100 [facility] (NEURONTIN) 4-03 mg by [facility] 100 [...] 2022-0 Yes 5mg Q.5D Take 5 mg [facility]ris (DITROPAN) 4-03 by mouth 2 [facility] 5 mg tablet 20:55: times 54 daily gabapentin 2022-0 Yes 300mg Take 300 [facility]ris (NEURONTIN) 4-03 mg by [facility] 300 mg 20:55: mouth capsule 54 every evening aspirin 81 2022-0 Yes 81mg Take 81 mg [facility] mg delayed 4-03 by mouth Healt h release 20:55: tablet 54 gabapentin 2022-0 Yes 100mg Take 100 [facility] (NEURONTIN) 4-03 mg by Health 100 [...] 2022-0 Yes 5mg Q.5D Take 5 mg More[facility]ris (DITROPAN) 4-03 by mouth 2 [facility] 5 mg tablet 20:55: times 54 daily gabapentin 2022-0 Yes 300mg Take 300 [facility]ris (NEURONTIN) 4-03 mg by [facility] 300 mg 20:55: mouth capsule 54 every evening aspirin 81 2022-0 Yes 81mg Take 81 mg [facility] mg delayed 4-03 by mouth Healt h release 20:55: tablet 54 gabapentin 2022-0 Yes 100mg Take 100 [facility] (NEURONTIN) 4-03 mg by [facility] 100 [...] 2022-0 Yes 5mg Q.5D Take 5 mg [facility] (DITROPAN) 4-03 by mouth 2 [facility] 5 mg tablet 20:55: times 54 daily gabapentin 2022-0 Yes 300mg Take 300 [facility] (NEURONTIN) 4-03 mg by [facility] 300 mg 20:55: mouth capsule 54 every evening aspirin 81 2022-0 Yes 81mg Take 81 mg [facility] mg delayed 4-03 by mouth Healt [facility] release 20:55: tablet 54 gabapentin 2022-0 Yes 100mg Take 100 [facility]ris (NEURONTIN) 4-03 mg by [facility] 100 [...] 2022-0 Yes 5mg Q.5D Take 5 mg [facility]ris (DITROPAN) 4-03 by mouth 2 [facility] 5 mg tablet 20:55: times 54 daily gabapentin 2022-0 Yes 300mg Take 300 [facility]ris (NEURONTIN) 4-03 mg by [facility] 300 mg 20:55: mouth capsule 54 every evening aspirin 81 2022-0 Yes 81mg Take 81 mg [facility] mg delayed 4-03 by mouth Healt h release 20:55: tablet 54 gabapentin 2022-0 Yes 100mg Take 100 [facility] (NEURONTIN) 4-03 mg by [facility] 100 [...] 2022-0 Yes 5mg Q.5D Take 5 mg [facility]ris (DITROPAN) 4-03 by mouth 2 [facility] 5 mg tablet 20:55: times 54 daily gabapentin 2022-0 Yes 300mg Take 300 [facility]ris (NEURONTIN) 4-03 mg by [facility] 300 mg 20:55: mouth capsule 54 every evening aspirin 81 2022-0 Yes 81mg Take 81 mg [facility] mg delayed 4-03 by mouth Healt h release 20:55: tablet 54 gabapentin 2022-0 Yes 100mg Take 100 [facility]ris (NEURONTIN) 4-03 mg by [facility] 100 [...] 2022-0 Yes 5mg Q.5D Take 5 mg [facility]ris (DITROPAN) 4-03 by mouth 2 [facility] 5 mg tablet 20:55: times 54 daily gabapentin 2022-0 Yes 300mg Take 300 [facility]ris (NEURONTIN) 4-03 mg by [facility] 300 mg 20:55: mouth capsule 54 every evening aspirin 81 2022-0 Yes 81mg Take 81 mg [facility] mg delayed 4-03 by mouth Healt h release 20:55: tablet 54 gabapentin 2022-0 Yes 100mg Take 100 More[facility]ris (NEURONTIN) 4-03 mg by [facility] 100 [...] 3-0 Yes 5mg Q.5D Take 5 mg More[facility]ris (DITROPAN) 4-03 by mouth 2 [facility] 5 mg tablet 20:55: times 54 daily gabapentin 2022-0 Yes 300mg Take 300 [facility]ris (NEURONTIN) 4-03 mg by [facility] 300 mg 20:55: mouth capsule 54 every evening aspirin 81 2022-0 Yes 81mg Take 81 mg [facility] mg delayed 4-03 by mouth Healt h release 20:55: tablet 54 gabapentin 2022-0 Yes 100mg Take 100 [facility]ris (NEURONTIN) 4-03 mg by [facility] 100 [...] 2022-0 Yes 5mg Q.5D Take 5 mg More[facility]ris (DITROPAN) 4-03 by mouth 2 [facility] 5 mg tablet 20:55: times 54 daily gabapentin 2022-0 Yes 300mg Take 300 [facility]ris (NEURONTIN) 4-03 mg by [facility] 300 mg 20:55: mouth capsule 54 every evening aspirin 81 2022-0 Yes 81mg Take 81 mg [facility] mg delayed 4-03 by mouth Healt h release 20:55: tablet 54 gabapentin 2022-0 Yes 100mg Take 100 More[facility]ris (NEURONTIN) 4-03 mg by Health 100 [...] 2022-0 Yes 5mg Q.5D Take 5 mg Moreno [facility]ris (DITROPAN) 4-03 by mouth 2 [facility] 5 mg tablet 20:55: times 54 daily gabapentin 2022-0 Yes 300mg Take 300 [facility]ris (NEURONTIN) 4-03 mg by [facility] 300 mg 20:55: mouth capsule 54 every evening aspirin 81 2022-0 Yes 81mg Take 81 mg [facility] mg delayed 4-03 by mouth Healt h release 20:55: tablet 54 gabapentin 2022-0 Yes 100mg Take 100 [facility]ris (NEURONTIN) 4-03 mg by [facility] 100 [...] 2022-0 Yes 5mg Q.5D Take 5 mg Moreno [facility]ris (DITROPAN) 4-03 by mouth 2 [facility] 5 mg tablet 20:55: times 54 daily gabapentin 2022-0 Yes 300mg Take 300 [facility]ris (NEURONTIN) 4-03 mg by [facility] 300 mg 20:55: mouth capsule 54 every evening aspirin 81 2022-0 Yes 81mg Take 81 mg [facility] mg delayed 4-03 by mouth Healt h release 20:55: tablet 54 gabapentin 2022-0 Yes 100mg Take 100 More[facility]ris (NEURONTIN) 4-03 mg by [facility] 100 [...] 2022-0 Yes 5mg Q.5D Take 5 mg Moreno [facility]ris (DITROPAN) 4-03 by mouth 2 [facility] 5 mg tablet 20:55: times 54 daily gabapentin 2022-0 Yes 300mg Take 300 [facility]ris (NEURONTIN) 4-03 mg by [facility] 300 mg 20:55: mouth capsule 54 every evening aspirin 81 2022-0 Yes 81mg Take 81 mg [facility] mg delayed 4-03 by mouth Healt h release 20:55: tablet 54 gabapentin 2022-0 Yes 100mg Take 100 [facility]ris (NEURONTIN) 4-03 mg by [facility] 100 mg 20:55: mouth capsule 54 every morning hydrOXYchlo 2022-0 Yes 200mg Take 200 [facility] roQUINE 4-03 mg by Health (PLAQUENIL) 20:55: mouth 200 mg 54 tablet midodrine 2022-0 Yes 2.5mg Take 2.5 Kd ris (PROAMATINE 4-03 mg by [facility] ) 2.5 mg 20:55: mouth tablet 54 rosuvastati 2022-0 Yes 10mg Take 10 mg Suresh n (CRESTOR) 4-03 by mouth [facility]al [facility] 10 mg 20:55: tablet 54 oxyBUTYnin 2022-0 Yes 5mg Q.5D Take 5 mg Moreno [facility]ris (DITROPAN) 4-03 by mouth 2 [facility] 5 mg tablet 20:55: times 54 daily gabapentin 2022-0 Yes 300mg Take 300 Moreno rris (NEURONTIN) 4-03 mg by [facility] 300 mg 20:55: mouth capsule 54 every evening aspirin 81 2022-0 Yes 81mg Take 81 mg [facility] mg delayed 4-03 by mouth Healt h release 20:55: tablet 54 gabapentin 2022-0 Yes 100mg Take 100 [facility]ris (NEURONTIN) 4-03 mg by [facility] 100 [...] 2022-0 Yes 5mg Q.5D Take 5 mg [facility] (DITROPAN) 4-03 by mouth 2 [facility] 5 mg tablet 20:55: times 54 daily gabapentin 2022-0 Yes 300mg Take 300 [facility]ris (NEURONTIN) 4-03 mg by [facility] 300 mg 20:55: mouth capsule 54 every evening aspirin 81 2022-0 Yes 81mg Take 81 mg [facility] mg delayed 4-03 by mouth Healt [facility] release 20:55: tablet 54 gabapentin 2022-0 Yes 100mg Take 100 [facility]ris (NEURONTIN) 4-03 mg by [facility] 100 [...] 2022-0 Yes 5mg Q.5D Take 5 mg Moreno [facility]ris (DITROPAN) 4-03 by mouth 2 [facility] 5 mg tablet 20:55: times 54 daily gabapentin 2022-0 Yes 300mg Take 300 [facility]ris (NEURONTIN) 4-03 mg by [facility] 300 mg 20:55: mouth capsule 54 every evening aspirin 81 2022-0 Yes 81mg Take 81 mg [facility] mg delayed 4-03 by mouth Healt h release 20:55: tablet 54 gabapentin 2022-0 Yes 100mg Take 100 Moreno [facility]ris (NEURONTIN) 4-03 mg by Health 100 [...] 2022-0 Yes 5mg Q.5D Take 5 mg Moreno rris (DITROPAN) 4-03 by mouth 2 [facility] 5 mg tablet 20:55: times 54 daily gabapentin 2022-0 Yes 300mg Take 300 [facility]ris (NEURONTIN) 4-03 mg by [facility] 300 mg 20:55: mouth capsule 54 every evening aspirin 81 2022-0 Yes 81mg Take 81 mg [facility] mg delayed 4-03 by mouth Healt [facility] release 20:55: tablet 54 gabapentin 2022-0 Yes 100mg Take 100 More[facility]ris (NEURONTIN) 4-03 mg by [facility] 100 mg 20:55: mouth capsule 54 every morning hydrOXYchlo 2022-0 Yes 200mg Take 200 [facility] roQUINE 4-03 mg by Health (PLAQUENIL) 20:55: mouth 200 mg 54 tablet midodrine 2022-0 Yes 2.5mg Take 2.5 Kd ris (PROAMATINE 4-03 mg by Health ) 2.5 mg 20:55: mouth tablet 54 rosuvastati 2022-0 Yes 10mg Take 10 mg Suersh n (CRESTOR) 4-03 by mouth [facility]al [facility] 10 mg 20:55: tablet 54 oxyBUTYnin 2022-0 Yes 5mg Q.5D Take 5 mg [facility]ris (DITROPAN) 4-03 by mouth 2 [facility] 5 mg tablet 20:55: times 54 daily gabapentin 2022-0 Yes 300mg Take 300 Moreno rris (NEURONTIN) 4-03 mg by [facility] 300 mg 20:55: mouth capsule 54 every evening aspirin 81 2022-0 Yes 81mg Take 81 mg [facility] mg delayed 4-03 by mouth Healt [facility] release 20:55: tablet 54 gabapentin 2022-0 Yes 100mg Take 100 More[facility]ris (NEURONTIN) 4-03 mg by [facility] 100 mg 20:55: mouth capsule 54 every morning hydrOXYchlo 2022-0 Yes 200mg Take 200 [facility] roQUINE 4-03 mg by Health (PLAQUENIL) 20:55: mouth 200 mg 54 tablet midodrine 0 Yes 2.5mg Take 2.5 Kd ris (PROAMATINE 4-03 mg by Health ) 2.5 mg 20:55: mouth tablet 54 rosuvastati 0 Yes 10mg Take 10 mg Suresh n (CRESTOR) 4-03 by mouth [facility]al th 10 mg 20:55: tablet 54 oxyBUTYnin 0 Yes 5mg Q.5D Take 5 mg Moreno rris (DITROPAN) 4-03 by mouth 2 [facility] 5 mg tablet 20:55: times 54 daily gabapentin 0 Yes 300mg Take 300 Moreno [facility]ris (NEURONTIN) 4-03 mg by [facility] 300 mg 20:55: mouth capsule 54 every evening aspirin 81 0 Yes 81mg Take 81 mg [facility] mg delayed 03 by mouth Healt [facility] release 20:55: tablet 54 gabapentin 0 Yes 100mg Take 100 Moreno rris (NEURONTIN) 4-03 mg by Health 100 mg 20:55: mouth capsule 54 every morning hydrOXYchlo 0 Yes 200mg Take 200 [facility] roQUINE 4-03 mg by Health (PLAQUENIL) 20:55: mouth 200 mg 54 tablet midodrine Yes 2.5mg Take 2.5 Kd ris (PROAMATINE 4-03 mg by Health ) 2.5 mg 20:55: mouth tablet 54 rosuvastati 0 Yes 10mg Take 10 mg Suresh n (CRESTOR) 4-03 by mouth [facility] 10 mg 20:55: tablet 54 oxyBUTYnin 2022-0 Yes 5mg Q.5D Take 5 mg Moreno rris (DITROPAN) 4-03 by mouth 2 [facility] 5 mg tablet 20:55: times 54 daily gabapentin 0 Yes 300mg Take 300 [facility]ris (NEURONTIN) 4-03 mg by [facility] 300 mg 20:55: mouth capsule 54 every evening levothyroxi 2022- No 175ug Take 175 Suresh ne -03 01-30 mcg by Health (SYNTHROID) 20:55: 00:00 mouth 175 mcg 54 :00 tablet traZODone 2022- No 150mg Take 150 Moreno rris (DESYREL) 08-2630 mg by Health 50 [...] tablet traZODone 2022- No 150mg Take 150 [facility]ris (DESYREL) 08-2630 mg by Health 50 mg 20:55: 00:00 mouth tablet 54 :00 escitalopra 2022- No 10mg QD Take 10 mg Suresh m (LEXAPRO) 08-26 by mouth [facility] 10 mg 20:55: 00:00 daily tablet 54 :00 levothyroxi 2022- No 175ug Take 175 Usresh ne 08-2630 mcg by Health (SYNTHROID) 20:55: 00:00 mouth 175 mcg 54 :00 tablet traZODone 2022- No 150mg Take 150 Moreno rris (DESYREL) 08-2630 mg by [facility] 50 mg 20:55: 00:00 mouth tablet 54 :00 escitalopra 2022- No 10mg QD Take 10 mg Suresh m (LEXAPRO) 08-26 by mouth [facility] 10 mg 20:55: 00:00 daily tablet 54 :00 levothyroxi 2022- No 175ug Take 175 Suresh ne 08-2630 mcg by Health (SYNTHROID) 20:55: 00:00 mouth 175 mcg 54 :00 tablet traZODone 2022- No 150mg Take 150 Moreno rris (DESYREL) 08-2630 mg by [facility] 50 mg 20:55: 00:00 mouth tablet 54 :00 escitalopra 2022-2022- No 10mg QD Take 10 mg Suresh m (LEXAPRO) 08-26 by mouth [facility] 10 mg 20:55: 00:00 daily tablet 54 :00 levothyroxi 2022- No 175ug Take 175 Suresh ne 08-2630 mcg by Health (SYNTHROID) 20:55: 00:00 mouth 175 mcg 54 :00 tablet traZODone 2022- No 150mg Take 150 [facility]ris (DESYREL) 08-2630 mg by Health 50 [...] tablet traZODone 2022- No 150mg Take 150 [facility]ris (DESYREL) 08-2630 mg by Health 50 [...] tablet traZODone 2022- No 150mg Take 150 [facility] rris (DESYREL) 08-2630 mg by Health 50 [...] tablet traZODone 2022- No 150mg Take 150 Moreno rris (DESYREL) 08-2630 mg by [facility] 50 mg 20:55: 00:00 mouth tablet 54 :00 escitalopra 2022- No 10mg QD Take 10 mg Suresh m (LEXAPRO) 08-26 by mouth [facility] 10 mg 20:55: 00:00 daily tablet 54 :00 levothyroxi 2022- No 175ug Take 175 Suresh ne 08-2630 mcg by [facility] (SYNTHROID) 20:55: 00:00 mouth 175 mcg 54 :00 tablet traZODone 2022- No 150mg Take 150 Moreno rris (DESYREL) 08-2630 mg by [facility] 50 mg 20:55: 00:00 mouth tablet 54 :00 escitalopra 2022- No 10mg QD Take 10 mg Suresh m (LEXAPRO) 08-26 by mouth a lth 10 mg 20:55: 00:00 daily tablet 54 :00 traZODone 2022- No insomnia 400mg Take 4 Suresh (DESYREL) 08-05 tablets by [facility] 100 mg 00:00: 23:59 mouth at tablet 00 :00 bedtime nightly for 90 days prazosin 2022- No Chronic 1mg Take 1 Kd ris (MINIPRESS) 08-05 PTSD with capsule by [facility] 1 mg 00:00: 23:59 Trauma mouth at capsule 00 :00 Nightmares bedtime nightly for 90 days FLUoxetine 2022- No anxiety 40mg QD Take 1 H arris (PROZAC) 40 08-05 with capsule by [facility] mg capsule 00:00: 23:59 depression mouth 00 :00 daily for 90 days busPIRone 2022- No generalized 5mg Take 1 Suresh (BUSPAR) 5 08-05 anxiety tablet by [facility] mg tablet 00:00: 23:59 disorder mouth 3 00 :00 times daily for 90 days traZODone 2022- No insomnia 400mg Take 4 Suresh (DESYREL) 08-05 tablets by [facility] 100 mg 00:00: 23:59 mouth at tablet [...] 00 :00 daily for 90 days traZODone 0 2022- No insomnia 400mg Take 4 Suresh [...] 00 :00 daily for 90 days traZODone 2022-2022- No [...] 00 :00 daily for 90 days traZODone 2022- No [...] 00 :00 daily for 90 days traZODone 2022- No [...] generalized 5mg Take 1 Suresh (BUSPAR) 5 - 05-10 anxiety tablet by Health mg tablet 00:00: 00:00 disorder mouth 3 00 :00 times daily for 90 days busPIRone 2022-0 2022- No generalized 5mg Take 1 Suresh (BUSPAR) 5 - 05-10 anxiety tablet by Health mg tablet 00:00: 00:00 disorder mouth 3 00 :00 times daily for 90 days busPIRone 2022-0 2022- No generalized 5mg Take 1 Suresh (BUSPAR) 5 - 05-10 anxiety tablet by Health mg tablet 00:00: 00:00 disorder mouth 3 00 :00 times daily for 90 days busPIRone 2022-0 2022- No generalized 5mg [...] 00 :00 daily for 30 days traZODone 2022-0 2022- No insomnia 400mg [...] :00 bedtime nightly for 30 days prazosin 2022-0 2022- No Chronic 1mg [...] :00 bedtime nightly for 30 days prazosin 2022-0 2022- No Chronic 1mg [...] 00 :00 daily for 30 days traZODone 2022-0 2022- No insomnia 400mg [...] busPIRone 2022- No generalized 5mg Take 1 Kerwin (BUSPAR) 5 07-08 anxiety tablet by Health [...] busPIRone 2022- No generalized 5mg Take 1 Kerwin (BUSPAR) 5 07-08 anxiety tablet by Health [...] :00 Nightmares daily for 30 days traZODone 2022-0 2022- No PTSD 300mg Take 3 Victor M is (DESYREL) -08-05 (post-traum tablets by Health 100 mg 00:00: 00:00 atic stress mouth at tablet 00 :00 disorder) bedtime nightly for 30 days busPIRone 2022-0 2022- No generalized 5mg Take 1 Suresh (BUSPAR) 5 07-08 anxiety tablet by [facility] mg tablet 00:00: 00:00 disorder mouth 3 00 :00 times daily for 30 days midodrine 0 Yes 2.5mg Take 2.5 Kd ris (PROAMATINE 1-30 mg by Health ) 2.5 mg 16:13: mouth tablet 11 rosuvastati Yes 10mg Take 10 mg Suresh n (CRESTOR) 1-30 by mouth [facility]al th 10 mg 16:13: tablet 11 oxyBUTYnin Yes 5mg Q.5D Take 5 mg Moreno rris (DITROPAN) 1-30 by mouth 2 [facility] 5 mg tablet 16:13: times 11 daily gabapentin 0 Yes 300mg Take 300 Moreno rris (NEURONTIN) 1-30 mg by [facility] 300 mg 16:13: mouth capsule 11 every evening aspirin 81 2022-0 Yes 81mg Take 81 mg H arris mg delayed 1-30 by mouth Healt h release 16:13: tablet 11 gabapentin 0 Yes 100mg Take 100 Moreno rris (NEURONTIN) 1-30 mg by Health 100 [...] th 10 mg 16:13: tablet 11 oxyBUTYnin 0 Yes 5mg Q.5D Take 5 mg Moreno rris (DITROPAN) 1-30 by mouth 2 [facility] 5 mg tablet 16:13: times 11 daily gabapentin 2022-0 Yes 300mg Take 300 Moreno rris (NEURONTIN) 1-30 mg by Health 300 mg 16:13: mouth capsule 11 every evening aspirin 81 2022-0 Yes 81mg Take 81 mg H [facility] mg delayed 1-30 by mouth Healt [facility] release 16:13: tablet 11 gabapentin 2022-0 Yes 100mg Take 100 Moreno rris (NEURONTIN) 1-30 mg by Health 100 [...] 2022-0 Yes 5mg Q.5D Take 5 mg Moreno rris (DITROPAN) 1-30 by mouth 2 [facility] 5 mg tablet 16:13: times 11 daily gabapentin 2022-0 Yes 300mg Take 300 Moreno rris (NEURONTIN) 1-30 mg by Health 300 mg 16:13: mouth capsule 11 every evening aspirin 81 2022-0 Yes 81mg Take 81 mg H [facility] mg delayed 1-30 by mouth Healt [facility] release 16:13: tablet 11 gabapentin 2022-0 Yes 100mg Take 100 Moreno rris (NEURONTIN) 1-30 mg by Health 100 [...] 2022-0 Yes 5mg Q.5D Take 5 mg Moreno rris (DITROPAN) 1-30 by mouth 2 [facility] 5 mg tablet 16:13: times 11 daily gabapentin 2022-0 Yes 300mg Take 300 Moreno rris (NEURONTIN) 1-30 mg by Health 300 mg 16:13: mouth capsule 11 every evening aspirin 81 2022-0 Yes 81mg Take 81 mg H [facility]is mg delayed 1-30 by mouth Healt [facility] release 16:13: tablet 11 gabapentin 2022-0 Yes 100mg Take 100 Moreno rris (NEURONTIN) 1-30 mg by Health 100 [...] 2022-0 Yes 5mg Q.5D Take 5 mg Moreno rris (DITROPAN) 1-30 by mouth 2 [facility] 5 mg tablet 16:13: times 11 daily gabapentin 2022-0 Yes 300mg Take 300 Moreno rris (NEURONTIN) 1-30 mg by Health 300 mg 16:13: mouth capsule 11 every evening aspirin 81 2022-0 Yes 81mg Take 81 mg H [facility] mg delayed 1-30 by mouth Healt [facility] release 16:13: tablet 11 gabapentin 2022-0 Yes 100mg Take 100 Moreno rris (NEURONTIN) 1-30 mg by Health 100 [...] 2022-0 Yes 5mg Q.5D Take 5 mg Moreno rris (DITROPAN) 1-30 by mouth 2 [facility] 5 mg tablet 16:13: times 11 daily gabapentin 2022-0 Yes 300mg Take 300 Moreno rris (NEURONTIN) 1-30 mg by [facility] 300 mg 16:13: mouth capsule 11 every evening aspirin 81 2022-0 Yes 81mg Take 81 mg H [facility] mg delayed 1-30 by mouth Healt [facility] release 16:13: tablet 11 gabapentin 2022-0 Yes 100mg Take 100 Moreno rris (NEURONTIN) 1-30 mg by [facility] 100 mg 16:13: mouth capsule 11 every morning hydrOXYchlo Yes 200mg Take 200 H [facility]is roQUINE 1-30 mg by Health (PLAQUENIL) 16:13: mouth 200 mg 11 tablet levothyroxi 2022- No 175ug Take 175 Suresh ne 1-30 01-30 mcg by Health (SYNTHROID) 13:18: 00:00 mouth 175 mcg 40 :00 tablet traZODone 2022- No 150mg Take 150 Moreno rris (DESYREL) 1-30 01-30 mg by [facility] 50 mg 13:18: 00:00 mouth tablet 40 :00 escitalopra 2022- No 10mg QD Take 10 mg Suresh m (LEXAPRO) - 01-30 by mouth [facility] 10 mg 13:18: 00:00 daily tablet 40 :00 levothyroxi 2022- No 175ug Take 175 Suresh ne 1-30 01-30 mcg by Health (SYNTHROID) 13:18: 00:00 mouth 175 mcg 40 :00 tablet traZODone 2022- No 150mg Take 150 Moreno rris (DESYREL) 1-30 01-30 mg by [facility] 50 mg 13:18: 00:00 mouth tablet 40 :00 escitalopra 2022- No 10mg QD Take 10 mg Suresh m (LEXAPRO) -30 01-30 by mouth [facility] 10 mg 13:18: 00:00 daily tablet 40 :00 levothyroxi 2022- No 175ug Take 175 Suresh ne -30 01-30 mcg by Health (SYNTHROID) 13:18: 00:00 mouth 175 mcg 40 :00 tablet traZODone 2022- No 150mg Take 150 Moreno rris (DESYREL) 06-24 mg by Health 50 [...] 30 days for Anxiety Levetiracet 2022- No [id number] 1500mg Q.5D Take 1 & Surehs am (KEPPRA) 06-24 1/2 (one [facility] 1,000 mg 00:00: 23:59 and tablet 00 :00 one-half) tablets by mouth 2 times daily for 30 days hydrOXYzine 2022- No [id number] 25mg Take 1 Suresh (ATARAX) 06-24 tablet [...] 30 days for Anxiety Levetiracet 2022- No [id number] 1500mg Q.5D Take 1 & Suresh am (KEPPRA) 06-24 12 (one [facility] 1,000 mg 00:00: 23:59 and tablet 00 :00 one-half) tablets by mouth 2 times daily for 30 days hydrOXYzine 2022- No [id number] 25mg Take 1 Suresh (ATARAX) 06-24 tablet [...] 30 days for Anxiety Levetiracet 2022- No [id number] 1500mg Q.5D Take 1 & Suresh am (KEPPRA) 06-24 1/2 (one [facility] 1,000 mg 00:00: 23:59 and tablet 00 :00 one-half) tablets by mouth 2 times daily for 30 days hydrOXYzine 2022- No [id number] 25mg Take 1 Suresh (ATARAX) 25 06-24 [...] 30 days for Anxiety Levetiracet 2022- No [id number] 1500mg Q.5D Take 1 & Suresh am (KEPPRA) 06-24/2 (one [facility] 1,000 mg 00:00: 23:59 and tablet 00 :00 one-half) tablets by mouth 2 times daily for 30 days hydrOXYzine 2022- No [id number] 25mg Take 1 Suresh (ATARAX) 06-24 tablet [...] 30 days for Anxiety Levetiracet 2022- No [id number] 1500mg Q.5D Take 1 & Suresh am (KEPPRA) 06-24 1/2 (one [facility] 1,000 mg 00:00: 23:59 and tablet 00 :00 one-half) tablets by mouth 2 times daily for 30 days hydrOXYzine 2022- No [id number] 25mg Take 1 Suresh (ATARAX) 06-24 tablet [...] 30 days for Anxiety Levetiracet 2022- No [id number] 1500mg Q.5D Take 1 & Suresh am (KEPPRA) 06-24 1/2 (one [facility] 1,000 mg 00:00: 23:59 and tablet 00 :00 one-half) tablets by mouth 2 times daily for 30 days hydrOXYzine 2022- No [id number] 25mg Take 1 Suresh (ATARAX) 06-24 tablet [...] 30 days for Anxiety Levetiracet 2022- No [id number] 1500mg Q.5D Take 1 & Suresh am (KEPPRA) 06-24 1/2 (one [facility] 1,000 mg 00:00: 23:59 and tablet 00 :00 one-half) tablets by mouth 2 times daily for 30 days hydrOXYzine 2022- No [id number] 25mg Take 1 Suresh (ATARAX) 06-24 tablet [...] 30 days for Anxiety Levetiracet 2022- No [id number] 1500mg Q.5D Take 1 & Suresh am (KEPPRA) 06-24 1/2 (one [facility] 1,000 mg 00:00: 23:59 and tablet 00 :00 one-half) tablets by mouth 2 times daily for 30 days hydrOXYzine 2022- No [id number] 25mg Take 1 Suresh (ATARAX) 06-24 tablet [...] 30 days for Anxiety Levetiracet 2022- No [id number] 1500mg Q.5D Take 1 & Suresh am (KEPPRA) 06-24 1/2 (one [facility] 1,000 mg 00:00: 23:59 and tablet 00 :00 one-half) tablets by mouth 2 times daily for 30 days hydrOXYzine 2022- No [id number] 25mg Take 1 Suresh (ATARAX) 06-24 tablet [...] 30 days for Anxiety Levetiracet 2022- No [id number] 1500mg Q.5D Take 1 & Suresh am (KEPPRA) 06-24 1/2 (one [facility] 1,000 mg 00:00: 23:59 and tablet 00 :00 one-half) tablets by mouth 2 times daily for 30 days hydrOXYzine 2022- No [id number] 25mg Take 1 Suresh (ATARAX) 06-24 tablet [...] 30 days for Anxiety Levetiracet 2022- No [id number] 1500mg Q.5D Take 1 & Suresh am (KEPPRA) 06-24 1/2 (one [facility] 1,000 mg 00:00: 23:59 and tablet 00 :00 one-half) tablets by mouth 2 times daily for 30 days hydrOXYzine 2022- No [id number] 25mg Take 1 Suresh (ATARAX) 25 06-24 [...] 30 days for Anxiety Levetiracet 2022- No [id number] 1500mg Q.5D Take 1 & Suresh am (KEPPRA) 06-24 1/2 (one [facility] 1,000 mg 00:00: 23:59 and tablet 00 :00 one-half) tablets by mouth 2 times daily for 30 days hydrOXYzine 2022- No [id number] 25mg Take 1 Suresh (ATARAX) 06-24 tablet by [facility] mg tablet 00:00: 23:59 mouth 00 :00 every 6 hours as needed for up to 30 days for Anxiety Levetiracet 2022- No [id number] 1500mg Q.5D Take 1 & Suresh am (KEPPRA) 06-24 1/2 (one [facility] 1,000 mg 00:00: 23:59 and tablet 00 :00 one-half) tablets by mouth 2 times daily for 30 days hydrOXYzine 2022- No [id number] 25mg Take 1 Suresh (ATARAX) 25 06-24 [...] nightly for 30 days escitalopra 2022- No [id number] 20mg QD Take 2 Suresh m (LEXAPRO) 06-24 tablets by H ealth 10 mg 00:00: 00:00 mouth tablet 00 :00 daily for 30 days traZODone 2022- No [id number] 250mg Take 5 Suresh (DESYREL) 06-24 tablets [...] nightly for 30 days escitalopra 2022- No [id number] 20mg QD Take 2 Suresh m (LEXAPRO) 06-24 tablets by H ealth 10 mg 00:00: 00:00 mouth tablet 00 :00 daily for 30 days traZODone 2022- No [id number] 250mg Take 5 Suresh (DESYREL) 06-24 tablets [...] nightly for 30 days escitalopra 2022- No [id number] 20mg QD Take 2 Suresh m (LEXAPRO) 06-24 tablets by H ealth 10 mg 00:00: 00:00 mouth tablet 00 :00 daily for 30 days traZODone 2022- No [id number] 250mg Take 5 Suresh (DESYREL) 06-24 tablets [...] nightly for 30 days escitalopra 2022- No [id number] 20mg QD Take 2 Suresh m (LEXAPRO) 06-24 tablets by H ealth 10 mg 00:00: 00:00 mouth tablet 00 :00 daily for 30 days traZODone 2022- No [id number] 250mg Take 5 Suresh (DESYREL) 06-24 tablets [...] nightly for 30 days escitalopra 2022- No [id number] 20mg QD Take 2 Suresh m (LEXAPRO) 06-24 tablets by [facility] 10 mg 00:00: 00:00 mouth tablet 00 :00 daily for 30 days traZODone 2022- No [id number] 250mg Take 5 Suresh (DESYREL) 06-24 tablets [...] nightly for 30 days escitalopra 2022- No [id number] 20mg QD Take 2 Suresh m (LEXAPRO) 06-24 tablets by [facility] 10 mg 00:00: 00:00 mouth tablet 00 :00 daily for 30 days traZODone 2022- No [id number] 250mg Take 5 Sures[facility] (DESYREL) 06-24 tablets by [facility] 50 mg 00:00: 00:00 mouth at tablet 00 :00 bedtime nightly for 30 days escitalopra 2022- No Suicidal 20mg QD Take 2 Suresh m (LEXAPRO) 06-24 behavior tablets by Health 10 mg 00:00: 00:00 without mouth tablet 00 :00 attempted daily for self-injury 30 days traZODone 2023-0 2023- No Suicidal 250mg Take 5 Suresh (DESYREL) 06-24 behavior tablets by Health 50 mg 00:00: 00:00 without mouth at tablet 00 :00 attempted bedtime self-injury nightly for 30 days escitalopra 2022- No [id number] 20mg QD Take 2 Suresh m (LEXAPRO) 06-24 tablets by [facility] 10 mg 00:00: 00:00 mouth tablet 00 :00 daily for 30 days traZODone 2022- No [id number] 250mg Take 5 Suresh (DESYREL) 06-24 tablets [...] nightly for 30 days escitalopra 2022- No [id number] 20mg QD Take 2 Suresh m (LEXAPRO) 06-24 tablets by [facility] 10 mg 00:00: 00:00 mouth tablet 00 :00 daily for 30 days traZODone 2022- No [id number] 250mg Take 5 Suresh (DESYREL) 06-24 tablets [...] nightly for 30 days escitalopra 2022- No [id number] 20mg QD Take 2 Sures[facility] m (LEXAPRO) 06-24 tablets by [facility] 10 mg 00:00: 00:00 mouth tablet 00 :00 daily for 30 days traZODone 2022- No [id number] 250mg Take 5 Suresh (DESYREL) 06-24 tablets by [facility] 50 mg 00:00: 00:00 mouth at [...] nightly for 30 days escitalopra 2022- No [id number] 20mg QD Take 2 Suresh m (LEXAPRO) 06-24 tablets by ealth 10 mg 00:00: 00:00 mouth tablet 00 :00 daily for 30 days traZODone 2022- No [id number] 250mg Take 5 Suresh (DESYREL) 06-24 tablets by [facility] 50 mg 00:00: 00:00 mouth at [...] nightly for 30 days escitalopra 2022- No [id number] 20mg QD Take 2 S[facility]h m (LEXAPRO) 06-24 tablets by [facility] 10 mg 00:00: 00:00 mouth tablet 00 :00 daily for 30 days traZODone 2022- No [id number] 250mg Take 5 Suresh (DESYREL) 06-24 tablets by [facility] 50 mg 00:00: 00:00 mouth at tablet 00 :00 bedtime nightly for 30 days escitalopra No Suicidal 20mg QD Take 2 Suresh m (LEXAPRO) 06-24 behavior tablets by Health 10 mg 00:00: 00:00 without mouth tablet 00 :00 attempted daily for self-injury 30 days traZODone No Suicidal 250mg Take 5 Suresh (DESYREL) 06-24 behavior tablets by [facility] 50 mg 00:00: 00:00 without mouth at tablet 00 :00 attempted bedtime self-injury nightly for 30 days escitalopra 2022- No [id number] 20mg QD Take 2 S[facility] m (LEXAPRO) 06-24 tablets by [facility] 10 mg 00:00: 00:00 mouth tablet 00 :00 daily for 30 days traZODone 2022- No [id number] 250mg Take 5 S[facility] (DESYREL) 06-24 tablets by [facility] 50 mg 00:00: 00:00 mouth at tablet 00 :00 bedtime nightly for 30 days escitalopra 2022- No [id number] 20mg QD Take 2 S[facility] m (LEXAPRO) 06-24 tablets by [facility] 10 mg 00:00: 00:00 mouth tablet 00 :00 daily for 30 days traZODone 2022- No [id number] 250mg Take 5 Suresh (DESYREL) 06-24 tablets [...] STAT traZODone 2022- No 200mg 200 mg Vitcor M is (DESYREL) 06-22 (1.88 Health tablet [...] dose on 07/21/22 at 2100, STAT traZODone 2022-2022- No 200mg 200 mg Victor M is [...] 2022-2022- No 5mg 5 mg [facility] (ROXICODONE 06-22 (0.0469 Heal th ) tablet 5 14:03: 09:15 mg/kg), mg 20 :00 Oral, EVERY 6 HOURS PRN, 3 doses, Starting on 06/22/22 at 1403, Until Discontinu ed, Moderate Pain (4-6) - 1st Line, STAT oxyCODONE 2022-0 2022- No 5mg 5 mg [facility] (ROXICODONE 06-22-30 (0.0469 Heal th ) tablet 5 14:03: [...] 2022-2022- No 5mg 5 mg [facility] (ROXICODONE 06-22 (0.0469 [facility]al th ) tablet 5 14:03: 09:15 mg/kg), mg 20 :00 Oral, EVERY 6 HOURS PRN, 3 doses, Starting on 06/22/22 at 1403, Until Discontinu ed, Moderate Pain (4-6) - 1st Line, STAT oxyCODONE 2022-2022- No 5mg 5 mg Suresh (ROXICODONE 06-22 [...] Pain (4-6) - 1st Line, STAT lacosamide No 50mg Q.5D 50 mg [...] dose on 07/21/22 at 1700, STAT lacosamide 2022-0 2022- No 50mg Q.5D 50 mg Harri [...] dose on 07/21/22 at 1700, STAT lacosamide 2022-0 2022- No 50mg Q.5D 50 mg Harri [...] STAT acetaminoph 2022- No 650mg 650 mg [facility] en 06-22 (6.1 Health (TYLENOL) 12:09: 18:13 mg/kg), tablet 650 19 :13 Oral, mg EVERY 8 HOURS PRN, Starting on 06/22/22 at 1209, Until 06/24/22 at 1813, Mild Pain (1-3) - 1st Line, Headache, STAT acetaminoph 2022- No 650mg 650 mg [facility] en 06-22 (6.1 Health (TYLENOL) 12:09: 18:13 mg/kg), tablet 650 19 :13 Oral, mg EVERY 8 HOURS PRN, Starting on 06/22/22 at 1209, Until 06/24/22 at 1813, Mild Pain (1-3) - 1st Line, Headache, STAT acetaminoph 2022- No 650mg 650 mg [facility] en 06-22 (6.1 Health (TYLENOL) 12:09: 18:13 mg/kg), tablet 650 19 :13 Oral, mg EVERY 8 HOURS PRN, Starting on 06/22/22 at 1209, Until Fri06/24/22 at 1813, Mild Pain (1-3) - 1st Line, Headache, STAT acetaminoph 2022- No 650mg 650 mg [facility] en 06-22 (6.1 Health (TYLENOL) 12:09: 18:13 mg/kg), tablet 650 19 :13 Oral, mg EVERY 8 HOURS PRN, Starting on 06/22/22 at 1209, Until Fri06/24/22 at 1813, Mild Pain (1-3) - 1st Line, Headache, STAT acetaminoph 2022- No 650mg 650 mg [facility] en 06-22 (6.1 Health (TYLENOL) 12:09: 18:13 mg/kg), tablet 650 19 :13 Oral, mg EVERY 8 HOURS PRN, Starting on 06/22/22 at 1209, Until Fri06/24/22 at 1813, Mild Pain (1-3) - 1st Line, Headache, STAT acetaminoph 2022- No 650mg 650 mg [facility] en 06-22 (6.1 Health (TYLENOL) 12:09: 18:13 mg/kg), tablet 650 19 :13 Oral, mg EVERY 8 HOURS PRN, Starting on 06/22/22 at 1209, Until Fri06/24/22 at 1813, Mild Pain (1-3) - 1st Line, Headache, STAT acetaminoph 2022- No 650mg 650 mg [facility] en 06-22 (6.1 Health (TYLENOL) 12:09: 18:13 mg/kg), tablet 650 19 :13 Oral, mg EVERY 8 HOURS PRN, Starting on 06/22/22 at 1209, Until Fri06/24/22 at 1813, Mild Pain (1-3) - 1st Line, Headache, STAT acetaminoph 2022- No 650mg 650 mg [facility] en 06-22 (6.1 Health (TYLENOL) 12:09: 18:13 mg/kg), tablet 650 19 :13 Oral, mg EVERY 8 HOURS PRN, Starting on 06/22/22 at 1209, Until Fri06/24/22 at 1813, Mild Pain (1-3) - 1st Line, Headache, STAT acetaminoph 2023-0 202- No 650mg 650 mg [facility] en 06-22 (6.1 Health (TYLENOL) 12:09: 18:13 mg/kg), tablet 650 19 :13 Oral, mg EVERY 8 HOURS PRN, Starting on 06/22/22 at 1209, Until Fri06/24/22 at 1813, Mild Pain (1-3) - 1st Line, Headache, STAT acetaminoph 2022-0 2022- No 650mg 650 mg [facility] en 06-22 (6.1 Health (TYLENOL) 12:09: 18:13 mg/kg), tablet 650 19 :13 Oral, mg EVERY 8 HOURS PRN, Starting on 06/22/22 at 1209, Until Fri06/24/22 at 1813, Mild Pain (1-3) - 1st Line, Headache, STAT acetaminoph 2022-0 2022- No 650mg 650 mg [facility] en 06-22 (6.1 Health (TYLENOL) 12:09: 18:13 mg/kg), tablet 650 19 :13 Oral, mg EVERY 8 HOURS PRN, Starting on 06/22/22 at 1209, Until Fri06/24/22 at 1813, Mild Pain (1-3) - 1st Line, Headache, STAT acetaminoph 2022-0 2022- No 650mg 650 mg [facility] en 06-22 (6.1 Health (TYLENOL) 12:09: 18:13 mg/kg), tablet 650 19 :13 Oral, mg EVERY 8 HOURS PRN, Starting on 06/22/22 at 1209, Until Fri06/24/22 at 1813, Mild Pain (1-3) - 1st Line, Headache, STAT acetaminoph 2022-0 202- No 650mg 650 mg [facility] en 06-22 (6.1 Health (TYLENOL) 12:09: 18:13 mg/kg), tablet 650 19 :13 Oral, mg EVERY 8 HOURS PRN, Starting on 06/22/22 at 1209, Until 06/24/22 at 1813, Mild Pain (1-3) - 1st Line, Headache, STAT nicotine 2022- No 1{patch QD 1 Patch, H arris (NICODERM 06-22 } [facility]) 14 09:00: 18:13 l, DAILY, mg/24 hr 1 00 :13 30 doses, Patch First dose on 06/22/22 at 0900, Last dose on 07/21/22 at 0900, STAT hydrOXYchlo No 200mg QD 200 mg [facility] roQUINE 06-22 (1.88 Health (PLAQUENIL) 09:00: [...] H arris (NICODERM 06-22 } [facility]) 14 09:00: 18:13 l, DAILY, mg/24 hr 1 00 :13 30 doses, Patch First dose on 06/22/22 at 0900, Last dose on 07/21/22 at 0900, STAT hydrOXYchlo 2022- No 200mg QD 200 mg [facility] roQUINE 06-22 (1.88 Health (PLAQUENIL) 09:00: [...] on 06/22/22 at 0900, Last dose on 2/26/23 at 0900, STAT gabapentin 2022- No 100mg [...] H arris (NICODERM 06-22 } [facility]) 14 09:00: 18:13 l, DAILY, mg/24 hr 1 00 :13 30 doses, Patch First dose on 06/22/22 at 0900, Last dose on 07/21/22 at 0900, STAT hydrOXYchlo No 200mg QD 200 mg [facility] roQUINE 06-22 (1.88 Health (PLAQUENIL) 09:00: [...] STAT aspirin No 81mg QD 81 mg Surse[facility] chewable 06-22 (0.76 Health tablet 81 09:00: [...] STAT hydrOXYchlo No 200mg QD 200 mg [facility] roQUINE 06-22 (1.88 Health (PLAQUENIL) 09:00: [...] H arris (NICODERM 06-22 } [facility] C[facility]) 14 09:00: 18:13 l, DAILY, mg/24 hr 1 00 :13 30 doses, Patch First dose on 06/22/22 at 0900, Last dose on 07/21/22 at 0900, STAT hydrOXYchlo No 200mg QD 200 mg [facility] roQUINE 06-22 (1.88 Health (PLAQUENIL) 09:00: [...] midodrine 2022- No 2.5mg Q.5D 2.5 mg Ivctor M is (PROAMATINE 06-22 (0.0235 Heal th [...] STAT hydrOXYchlo No 200mg QD 200 mg [facility] roQUINE 06-22 (1.88 Health (PLAQUENIL) 09:00: [...] H arris (NICODERM 06-22 } [facility] C[facility]) 14 09:00: 18:13 l, DAILY, mg/24 hr 1 00 :13 30 doses, Patch First dose on 06/22/22 at 0900, Last dose on 07/21/22 at 0900, STAT hydrOXYchlo 2022- No 200mg QD 200 mg [facility] roQUINE 06-22 (1.88 Health (PLAQUENIL) 09:00: [...] on 06/22/22 at 0900, Last dose on 2/26/23 at 0900, STAT gabapentin 2022- No 100mg [...] H arris (NICODERM 06-22 } [facility] C[facility]) 14 09:00: 18:13 l, DAILY, mg/24 hr 1 00 :13 30 doses, Patch First dose on 06/22/22 at 0900, Last dose on 07/21/22 at 0900, STAT hydrOXYchlo No 200mg QD 200 mg [facility] roQUINE 06-22 (1.88 Health (PLAQUENIL) 09:00: [...] STAT hydrOXYchlo No 200mg QD 200 mg [facility] roQUINE 06-22 (1.88 Health (PLAQUENIL) 09:00: [...] H arris (NICODERM 06-22 } [facility] C[facility]) 14 09:00: 18:13 l, DAILY, mg/24 hr 1 00 :13 30 doses, Patch First dose on 06/22/22 at 0900, Last dose on 07/21/22 at 0900, STAT hydrOXYchlo No 200mg QD 200 mg [facility] roQUINE 06-22 (1.88 Health (PLAQUENIL) 09:00: [...] STAT hydrOXYchlo No 200mg QD 200 mg [facility]ris roQUINE 06-22 (1.88 Health (PLAQUENIL) 09:00: [...] H arris (NICODERM 06-22 } [facility] C[facility]) 14 09:00: 18:13 l, DAILY, mg/24 hr 1 00 :13 30 doses, Patch First dose on 06/22/22 at 0900, Last dose on 07/21/22 at 0900, STAT hydrOXYchlo 2022- No 200mg QD 200 mg [facility]ris roQUINE 06-22 (1.88 Health (PLAQUENIL) 09:00: [...] on 06/22/22 at 0900, Last dose on 2/26/23 at 0900, STAT gabapentin 2022- No 100mg [...] H arris (NICODERM 06-22 } [facility] CQ) 14 09:00: 18:13 l, DAILY, mg/24 hr 1 00 :13 30 doses, Patch First dose on 06/22/22 at 0900, Last dose on 07/21/22 at 0900, STAT hydrOXYchlo No 200mg QD 200 mg Moreno rris roQUINE 06-22 (1.88 Health (PLAQUENIL) 09:00: [...] Administer over 15 Minutes, 100 mL iopamidol 2022-0 2023- No [id number] 75mL 75 mL, [facility] (ISOVUE 05-31 Intravenou ity o f 370-500 mL) 23:00: 21:51 s, ONCE, 1 [place] injection 00 :00 dose, On Medica l 75 mL Fri05/31/22 Branch at 1700, Routine NaCl 0.9% 2022-0 Yes 5mL 5 mL, Slow Un nunu (NS) 05-31 IV Push, ity of injection 5 21:31: PRN - [place] mL 32 [facility]STRUCT[facility] Medical NS, Branch Starting on Fri05/31/22 at 1531, Until Discontinu ed, 10 mL lacosamide 3-0 Yes 50mg Take 50 mg [...] mg tablet 00:00: 00 cefdinir 2023-0 Yes [id number] 300mg Take 1 U nivers 300 mg 1-06 capsule by ity of capsule 00:00: mouth [place] [address] every 12 Medical (twelve) Branch hours. lacosamide 3-0 Yes [id number] 50mg Take 1 U nivers 50 mg 1-06 tablet by ity of tablet 00:00: mouth in [place] [address] the Medical morning Branch and 1 tablet in the evening. levETIRAcet 3-0 Yes [id number] 1000mg Take 1 [facility] am 1,000 mg 1-06 tablet by ity of tablet 00:00: mouth in [place] [address] the Medical morning Branch and 1 tablet in the evening. levETIRAcet 3-0 Yes [id number] 500mg Take 1 [facility] am 500 mg 1-06 tablet by ity o f tablet 00:00: mouth in [place] 00 the Medical morning Branch and 1 tablet in the evening. cefdinir 2023-0 Yes [id number] 300mg Take 1 U nivers 300 mg 1-06 capsule by ity of capsule 00:00: mouth [place] [address] every 12 Medical (twelve) Branch hours. lacosamide 2023-0 Yes [id number] 50mg Take 1 U nivers 50 mg 1-06 tablet by ity of tablet 00:00: mouth in [place] [address] the Medical morning Branch and 1 tablet in the evening. levETIRAcet 2023-0 Yes [id number] 1000mg Take 1 [facility] am 1,000 mg 1-06 tablet by ity of tablet 00:00: mouth in [place] 00 the Medical morning Branch and 1 tablet in the evening. levETIRAcet 2023-0 Yes [id number] 500mg Take 1 [facility] am 500 mg 1-06 tablet by ity o f tablet 00:00: mouth in [place] 00 the Medical morning Branch and 1 tablet in the evening. cefdinir 2023-0 Yes [id number] 300mg Take 1 U nivers 300 mg 1-06 capsule by ity of capsule 00:00: mouth [place] 00 every 12 Medical ([facility]) Branch hours. lacosamide 2023-0 Yes [id number] 50mg Take 1 U nivers 50 mg 1-06 tablet by ity of tablet 00:00: mouth in [place] 00 the Medical morning Branch and 1 tablet in the evening. levETIRAcet 2023-0 Yes [id number] 1000mg Take 1 [facility] am 1,000 mg 1-06 tablet by ity of tablet 00:00: mouth in [place] 00 the Medical morning Branch and 1 tablet in the evening. levETIRAcet 2023-0 Yes [id number] 500mg Take 1 [facility] am 500 mg 1-06 tablet by ity o f tablet 00:00: mouth in [place] 00 the Medical morning Branch and 1 tablet in the evening. cefdinir 2023-0 Yes [id number] 300mg Take 1 U nivers 300 mg 1-06 capsule by ity of capsule 00:00: mouth [place] [address] every 12 [facility] ([facility]) Branch hours. lacosamide 2023-0 Yes [id number] 50mg Take 1 U nivers 50 mg 1-06 tablet by ity of tablet 00:00: mouth in [place] 00 the Medical morning Branch and 1 tablet in the evening. levETIRAcet 2023-0 Yes [id number] 1000mg Take 1 [facility] am 1,000 mg 1-06 tablet by ity of tablet 00:00: mouth in [place] 00 the [facility] morning Branch and 1 tablet in the evening. levETIRAcet 2023-0 Yes [id number] 500mg Take 1 [facility] am 500 mg 1-06 tablet by ity o f tablet 00:00: mouth in [place] 00 the Medical morning Branch and 1 tablet in the evening. cefdinir 2023-0 Yes [id number] 300mg Take 1 U nivers 300 mg 1-06 capsule by ity of capsule 00:00: mouth [place] 00 every 12 Medical (twelve) Branch hours. lacosamide 2023-0 Yes [id number] 50mg Take 1 U nivers 50 mg 1-06 tablet by ity of tablet 00:00: mouth in [place] 00 the Medical morning Branch and 1 tablet in the evening. levETIRAcet 2023-0 Yes [id number] 1000mg Take 1 [facility] am 1,000 mg 1-06 tablet by ity of tablet 00:00: mouth in [place] 00 the Medical morning Branch and 1 tablet in the evening. levETIRAcet 2023-0 Yes [id number] 500mg Take 1 [facility] am 500 mg 1-06 tablet by ity o f tablet 00:00: mouth in [place] 00 the Medical morning Branch and 1 tablet in the evening. lacosamide 2023-0 Yes [id number] 50mg Take 1 U nivers 50 mg 1-06 tablet by ity of tablet 00:00: mouth in [place] [address] the [facility] morning [place] and 1 tablet in the evening. levETIRAcet 2023-0 Yes [id number] 1000mg Take 1 [facility] am 1,000 mg 1-06 tablet by ity of tablet 00:00: mouth in [place] [address] the [facility] morning [place] and 1 tablet in the evening. levETIRAcet 2023-0 Yes [id number] 500mg Take 1 [facility] am 500 mg 1-06 tablet by ity o f tablet 00:00: mouth in [place] [address] the [facility] morning Branch and 1 tablet in the evening. lacosamide 2023-0 Yes [id number] 50mg Take 1 U nivers 50 mg 1-06 tablet by ity of tablet 00:00: mouth in [place] [address] the [facility] morning Branch and 1 tablet in the evening. levETIRAcet 2023-0 Yes [id number] 1000mg Take 1 [facility] am 1,000 mg 1-06 tablet by ity of tablet 00:00: mouth in [place] [address] the Medical morning Branch and 1 tablet in the evening. levETIRAcet 2023-0 Yes [id number] 500mg Take 1 [facility] am 500 mg 1-06 tablet by ity o f tablet 00:00: mouth in [place] [address] the [facility] morning Branch and 1 tablet in the evening. lacosamide 2023-0 Yes [id number] 50mg Take 1 U nivers 50 mg 1-06 tablet by ity of tablet 00:00: mouth in [place] [address] the Medical morning Branch and 1 tablet in the evening. levETIRAcet 2023-0 Yes [id number] 1000mg Take 1 [facility] am 1,000 mg 1-06 tablet by ity of tablet 00:00: mouth in [place] 00 the Medical morning Branch and 1 tablet in the evening. levETIRAcet 2023-0 Yes [id number] 500mg Take 1 [facility] am 500 mg 1-06 tablet by ity o f tablet 00:00: mouth in [place] 00 the Medical morning Branch and 1 tablet in the evening. lacosamide 3-0 Yes [id number] 50mg Take 1 U nivers 50 mg 1-06 tablet by ity of tablet 00:00: mouth in [place] 00 the Medical morning Branch and 1 tablet in the evening. levETIRAcet 3-0 Yes [id number] 1000mg Take 1 [facility] am 1,000 mg 1-06 tablet by ity of tablet 00:00: mouth in [place] 00 the Medical morning Branch and 1 tablet in the evening. levETIRAcet 3-0 Yes [id number] 500mg Take 1 [facility] am 500 mg 1-06 tablet by ity o f tablet 00:00: mouth in [place] 00 the Medical morning Branch and 1 tablet in the evening. lacosamide 3-0 Yes [id number] 50mg Take 1 U nivers 50 mg 1-06 tablet by ity of tablet 00:00: mouth in [place] 00 the Medical morning Branch and 1 tablet in the evening. levETIRAcet 3-0 Yes [id number] 1000mg Take 1 [facility] am 1,000 mg 1-06 tablet by ity of tablet 00:00: mouth in [place] 00 the Medical morning Branch and 1 tablet in the evening. levETIRAcet 3-0 Yes [id number] 500mg Take 1 [facility] am 500 mg 1-06 tablet by ity o f tablet 00:00: mouth in [place] 00 the Medical morning Branch and 1 tablet in the evening. lacosamide 2023-0 2023- No [id number] 50mg Take 1 [facility] 50 mg 1-06 04-07 tablet by ity of tablet 00:00: 04:59 mouth in [place] 00 :00 the Medical morning Branch and 1 tablet in the evening. Do all this for 90 days. levETIRAcet 2023-0 2023- No [id number] 1000mg Take 1 [facility] am 1,000 mg 1-06 04-07 tablet by it y of tablet 00:00: 04:59 mouth in [place] 00 :00 the [facility] morning Branch and 1 tablet in the evening. Do all this for 90 days. levETIRAcet 2022-0 3- No [id number] 500mg Take 1 [facility] am 500 mg 05-31 tablet by ity of tablet 00:00: 04:59 mouth in [place] 00 :00 the [facility] morning [place] and 1 tablet in the evening. Do all this for 90 days. Levetiracet 2022-0 2023- No 1500mg Take 1,500 Suresh am (KEPPRA) 05-31 01-30 mg by [facility] 1,000 mg 00:00: 00:00 mouth tablet 00 :00 Levetiracet 2022-0 3- No 1500mg Take 1,500 Suresh am (KEPPRA) 05-31 01-30 mg by [facility] 1,000 mg 00:00: 00:00 mouth tablet 00 :00 Levetiracet 2022-0 3- No 1500mg Take 1,500 Suresh am (KEPPRA) 05-31 01-30 mg by [facility] 1,000 mg 00:00: 00:00 mouth tablet 00 :00 Levetiracet 2022-0 2023- No 1500mg Take 1,500 Suresh am (KEPPRA) 05-31 01-30 mg by [facility] 1,000 mg 00:00: 00:00 mouth tablet 00 :00 Levetiracet 3-0 3- No 1500mg Take 1,500 Suresh am (KEPPRA) 05-31 01-30 mg by [facility] 1,000 mg 00:00: 00:00 mouth tablet 00 :00 Levetiracet 3-0 2023- No 1500mg Take 1,500 Suresh am (KEPPRA) 05-31 01-30 mg by [facility] 1,000 mg 00:00: 00:00 mouth tablet 00 :00 Levetiracet 3-0 2023- No 1500mg Take 1,500 Suresh am (KEPPRA) 05-31 01-30 mg by [facility] 1,000 mg 00:00: 00:00 mouth tablet 00 :00 Levetiracet 3-0 2023- No 1500mg Take 1,500 Suresh am (KEPPRA) 05-31 01-30 mg by [facility] 1,000 mg 00:00: 00:00 mouth tablet 00 :00 Levetiracet 3-0 2023- No 1500mg Take 1,500 Suresh am (KEPPRA) 05-31 01-30 mg by [facility] 1,000 mg 00:00: 00:00 mouth tablet 00 :00 Levetiracet 2022-0 2023- No 1500mg Take 1,500 Suresh am (KEPPRA) 05-31 01-30 mg by [facility] 1,000 mg 00:00: 00:00 mouth tablet 00 :00 Levetiracet 2022-0 2023- No 1500mg Take 1,500 Suresh am (KEPPRA) 05-31 01-30 mg by [facility] 1,000 mg 00:00: 00:00 mouth tablet 00 :00 Levetiracet 2022-0 2023- No 1500mg Take 1,500 Suresh am (KEPPRA) 05-31 01-30 mg by [facility] 1,000 mg 00:00: 00:00 mouth tablet 00 :00 levETIRAcet 2022-0 2023- No 500mg Take 500 Suresh am (KEPPRA) 05-31 01-28 mg by [facility] 500 mg 00:00: 00:00 mouth tablet 00 :00 levETIRAcet 3-0 2023- No 500mg Take 500 Suresh am (KEPPRA) 05-31 01-28 mg by [facility] 500 mg 00:00: 00:00 mouth tablet 00 :00 levETIRAcet 3-0 2023- No 500mg Take 500 Suresh am (KEPPRA) 05-31 01-28 mg by [facility] 500 mg 00:00: 00:00 mouth tablet 00 :00 levETIRAcet 3-0 2023- No 500mg Take 500 Suresh am (KEPPRA) 05-31 01-28 mg by [facility] 500 mg 00:00: 00:00 mouth tablet 00 :00 levETIRAcet 3-0 2023- No 500mg Take 500 Suresh am (KEPPRA) 05-31 01-28 mg by [facility] 500 mg 00:00: 00:00 mouth tablet 00 :00 levETIRAcet 3-0 2023- No 500mg Take 500 Suresh am (KEPPRA) 05-31 01-28 mg by [facility] 500 mg 00:00: 00:00 mouth tablet 00 [...] 500 Suresh am (KEPPRA) 05-31-28 mg by [facility] 500 mg 00:00: 00:00 mouth tablet 00 :00 levETIRAcet 2022-0 3- No 500mg Take 500 Suresh am (KEPPRA) 05-31-28 mg by [facility] 500 mg 00:00: 00:00 mouth tablet 00 :00 levETIRAcet 0 2022- No 500mg Take 500 Suresh am (KEPPRA) 05-31-28 mg by [facility] 500 mg 00:00: 00:00 mouth tablet 00 :00 cefdinir 2022-0 2022- No [id number] 300mg Take 1 [facility] 300 mg 05-31 capsule by [facility] of capsule 00:00: 05:59 mouth [place] 00 [...] 0-28 hours 00:00: 00 1 tab oral 2-1 No every 6 0-28 hours 00:00: 00 TAKE 1 2021-1 No TABLET 0-28 DAILY. 00:00: 00 TAKE 1 2021-1 No TABLET 0-28 DAILY. 00:00: 00 1 [...] THREE TIMES A DAY. midodrine Yes 2.5mg Q.[id number] Take 2.5 [facility] (PROAMATINE 4-15 [id number] mg by s t ) 2.5 MG [...] l 10 ORAL) midodrine 0 Yes 2.5mg Q.[id number] Take 2.5 [facility] (PROAMATINE 4-15 [id number] mg by s t ) 2.5 MG [...] 09:30: [facility]osp[facility] (PROBIOTIC- 01 l 10 ORAL) lacosamide 0 Yes 50mg Q.5D Take 50 mg [facility] (Vimpat) 50 4-[address] mg tablet 09:30: (two) Hospita 01 times a l day. levETIRAcet Yes 250mg Take 250 [facility] am (KEPPRA) 4-[address] 250 MG 09:30: mouth. [facility]osp[facility] tablet 01 Taking l 1,500mg BID. midodrine 2021-0 Yes 2.5mg Q.[id number] Take 2.5 [facility] (PROAMATINE 4-15 [id number] mg by s t ) 2.5 MG 09:30: 3D mouth 3 Hospit a tablet 01 (three) l times a day. levothyroxi Yes 175ug QD Take 175 [...] 01 l 10 ORAL) midodrine Yes 2.5mg Q.[id number] Take 2.5 [facility] (PROAMATINE 4-15 [id number] mg by s t ) 2.5 MG [...] 09:30: daily. [facility]ospita tablet 01 l gabapentin 2020- Yes 100mg Take 100 [facility] (NEURONTIN) [...] l 10 ORAL) midodrine 2020-0 Yes 2.5mg Q.[id number] Take 2.5 [facility] (PROAMATINE 4-15 [id number] mg by s t ) 2.5 MG 09:30: 3D mouth 3 Hospit a tablet 01 (three) l times a day. lacosamide 2021-0 Yes 50mg Q.5D Take 50 mg M [...] l 10 ORAL) midodrine 2020-0 Yes 2.5mg Q.[id number] Take 2.5 [facility] (PROAMATINE 4-15 [id number] mg by s t ) 2.5 MG [...] l 10 ORAL) midodrine 2020-0 Yes 2.5mg Q.[id number] Take 2.5 [facility] (PROAMATINE 4-15 [id number] mg by s t ) 2.5 MG [...] tablet 01 Taking l 1,500mg BID. aspirin 2021-0 Yes 81mg QD Take 81 mg Meth [facility] (ECOTRIN) 4-[address] 81 MG 09:30: [facility]. [facility] enteric 01 l coated tablet Lactobac Yes Take by [facility] no.[facility]/Bifid 4-[address] obact no.7 09:30: [facility] (PROBIOTIC- 01 l 10 ORAL) midodrine 2020-0 Yes 2.5mg Q.[id number] Take 2.5 [facility] (PROAMATINE 4-15 [id number] mg by s t ) 2.5 MG [...] l 10 ORAL) midodrine 2020-0 Yes 2.5mg Q.[id number] Take 2.5 [facility] (PROAMATINE 4-15 [id number] mg by s t ) 2.5 MG 09:30: 3D mouth 3 [facility] a tablet 01 (three) l times a day. rosuvastati 2020- Yes 10mg QD Take 10 mg [facility] [...] and 3 tablets in the PM. levETIRAcet 2020-0 Yes 250mg Take 250 M [...] l 10 ORAL) midodrine 0 Yes 2.5mg Q.[id number] Take 2.5 [facility] (PROAMATINE 4-15 [id number] mg by s t ) 2.5 MG 09:30: 3D mouth 3 [facility] a tablet 01 (three) l times a day. hydrOXYchlo 0 Yes 200mg QD Take 200 M ethodi roQUINE 4-[address] (PLAQUENIL) 09:30: mouth Hospi ta 200 mg 01 daily. l tablet lacosamide 0 Yes 50mg Q.5D Take 50 [...] l 10 ORAL) midodrine 2020-0 Yes 2.5mg Q.[id number] Take 2.5 Methodi (PROAMATINE 4-15 [id number] mg by s t ) 2.5 MG [...] l times a day with meals. aspirin 2020-0 Yes 81mg QD Take 81 [...] l 10 ORAL) midodrine 2020-0 Yes 2.5mg Q.[id number] Take 2.5 [facility] (PROAMATINE 4-15 [id number] mg by s t ) 2.5 MG 09:30: 3D mouth 3 Hospit a tablet 01 (three) l times a day. Lactobac Yes Take by Method i no.41/Bifid 4-[address] obact no.7 09:30: Hospita (PROBIOTIC- 01 l 10 ORAL) lacosamide 0 Yes 50mg Q.5D Take 50 [...] l 10 ORAL) midodrine 2020-0 Yes 2.5mg Q.[id number] Take 2.5 Method[facility] (PROAMATINE 4-15 [id number] mg by s t ) 2.5 MG 09:30: 3D mouth 3 Hospit a tablet 01 (three) l times a day. midodrine 2020-0 Yes 2.5mg Q.[id number] Take 2.5 [facility] (PROAMATINE 4-15 [id number] mg by s t ) 2.5 MG [...] 01 l 10 ORAL) midodrine Yes 2.5mg Q.[id number] Take 2.5 [facility] (PROAMATINE 4-15 [id number] mg by s t ) 2.5 MG [...] 01 l 10 ORAL) midodrine Yes 2.5mg Q.[id number] Take 2.5 [facility] (PROAMATINE 4-15 [id number] mg by s t ) 2.5 MG [...] l 10 ORAL) midodrine 0 Yes 2.5mg Q.[id number] Take 2.5 [facility] (PROAMATINE 4-15 [id number] mg by s t ) 2.5 MG [...] 01 l 10 ORAL) midodrine Yes 2.5mg Q.[id number] Take 2.5 [facility] (PROAMATINE 4-15 [id number] mg by s t ) 2.5 MG [...] 200 mg 01 daily. l tablet lubiproston 2021-0 Yes 24ug Q.5D Take 24 Met hodi [...] l 10 ORAL) midodrine 2020-0 Yes 2.5mg Q.[id number] Take 2.5 Methodi (PROAMATINE 4-15 [id number] mg by s t ) 2.5 MG [...] Hospita (PROBIOTIC- 01 l 10 ORAL) amoxicillin 2020- No 1{tbl} 1 tablet, Univers -clavulanat 05-31 Oral, ONCE i ty of e 05:00: 04:02 NOW, 1 Rachel (AUGMENTIN) 00 :00 dose, [facility] ical 875-125 mg 05/30/20 at [facility] ch per tablet 2300, 1 tablet Routine
Reason for Anti-Infec tive: Documented Infection< br>Documen justino Infection Site: Respirator y
Durat ion of Therapy: Other (see Comments) ketorolac 2020- No 15mg 15 mg, Unive rs (TORADOL) 05-31 Slow IV ity of injection 03:30: 02:26 Push, Rachel 15 mg 00 :00 ONCE, 1 Medical dose, [facility] Branch 05/30/20 at 2130, EVANS
Fa culty member approving Restricted medication : JANENE NAVAS R hydrOXYzine 2020- No 25mg 25 mg, Uni vers (ATARAX) 05-31 Oral, ity of tablet 25 03:30: 02:26 ONCE, 1 [place] mg 00 :00 dose, [facility] Medical 05/30/20 at Branch 2130, EVANS famotidine 2020- No 20mg 20 mg, Univ ers (PEPCID 05-31 Slow IV ity of (PF)) 03:30: 02:26 Push, [place] injection 00 :00 ONCE, 1 Medical 20 mg dose, [facility] Branch 05/30/20 at 2130, EVANS iohexol 2020- No 100mL 100 mL, Unive rs (OMNIPAQUE 05-31 Intravenou it y of 350 01:45: 01:37 s, ONCE, 1 [place] BULK-150 00 :00 dose, e Medica l mL) 05/30/20 at Branch injection 194, 100 mL Routine butalbital- 2020- No 1{tbl} 1 tablet, Univers acetaminoph 05-31 Oral, ONCE i ty of en-caff 01:45: 00:52 NOW, 1 [place] (ESGIC) 00 :00 dose, [facility] Medical 50-325-40 05/30/20 at Branc h mg tablet 1 1944, tablet Routine diphenhydrA 2020- No 50mg 50 mg, Uni vers MINE 05-31 Slow IV ity of (BENADRYL) 00:15: 00:52 Push, [place] injection 00 :00 ONCE, 1 Medical 50 mg dose, [facility] 05/30/20 at 1815, STAT methylPREDN No 40mg 40 mg, IV Univers ISolone sod 05-31 Piggyback, i ty of succ 00:15: 00:52 ONCE, 1 [place] (SOLU-MEDRO 00 :00 dose, [facility] Med ical L (PF)) 05/30/20 at Branch injection 181, STAT 40 mg NaCl 0.9% 2020- No 1000mL at 999 Uni vers (NS) bolus 05-3006 mL/hr, ity of infusion 23:15: 02:15 1,000 mL, [place] as 1,000 mL 00 :00 IV Medical Infusion, [place] ONCE, 1 dose, [facility] 05/30/20 at 1715, EVANS hydrOXYzine Yes [id number] 25mg Take 1 Univers 25 mg 1-05 tablet by ity of tablet 00:00: mouth [place] 00 every 6 Medical (six) Branch hours as needed for Itching. albuterol Yes [id number] 2{puff} Inhale 2 Univers 90 1-05 Puffs ity of mcg/actuati 00:00: every 4 [place] as on inhaler 00 (four) Medical hours as Branch needed for Wheezing or Shortness of Breath. hydrOXYzine 2020-0 Yes [id number] 25mg Take 1 Univers 25 mg 1-05 tablet by ity of tablet 00:00: mouth [place] 00 every 6 Medical (six) Branch hours as needed for Itching. albuterol 2020-0 Yes [id number] 2{puff} Inhale 2 Univers 90 1-05 Puffs ity of mcg/actuati 00:00: every 4 [place] as on inhaler 00 (four) Medical hours as Branch needed for Wheezing or Shortness of Breath. albuterol 2020-0 Yes [id number] 2{puff} Inhale 2 Univers 90 1-05 Puffs ity of mcg/actuati 00:00: every 4 [place] as on inhaler 00 (four) Medical hours as Branch needed for Wheezing or Shortness of Breath. hydrOXYzine 2020-0 Yes [id number] 25mg Take 1 Univers 25 mg 1-05 tablet by ity of tablet 00:00: mouth [place] 00 every 6 Medical (six) Branch hours as needed for Itching. hydrOXYzine 2020-0 Yes [id number] 25mg Take 1 Univers 25 mg 1-05 tablet by ity of tablet 00:00: mouth [place] 00 every 6 Medical (six) Branch hours as needed for Itching. albuterol 2020-0 Yes [id number] 2{puff} Inhale 2 Univers 90 1-05 Puffs ity of mcg/actuati 00:00: every 4 [place] as on inhaler 00 (four) Medical hours as Branch needed for Wheezing or Shortness of Breath. hydrOXYzine 2020-0 Yes [id number] 25mg Take 1 Univers 25 mg 1-05 tablet by ity of tablet 00:00: mouth [place] 00 every 6 Medical (six) Branch hours as needed for Itching. albuterol 2020-0 Yes [id number] 2{puff} Inhale 2 Univers 90 1-05 Puffs ity of mcg/actuati 00:00: every 4 [place] as on inhaler 00 (four) Medical hours as Branch needed for Wheezing or Shortness of Breath. hydrOXYzine 2020-0 Yes [id number] 25mg Take 1 Univers 25 mg 1-05 tablet by ity of tablet 00:00: mouth [place] 00 every 6 Medical (six) Branch hours as needed for Itching. albuterol 0 Yes [id number] 2{puff} Inhale 2 Univers 90 1-05 Puffs ity of mcg/actuati 00:00: every 4 [place] as on inhaler 00 (four) Medical hours as Branch needed for Wheezing or Shortness of Breath. hydrOXYzine Yes [id number] 25mg Take 1 Univers 25 mg 1-05 tablet by ity of tablet 00:00: mouth [place] 00 every 6 Medical (six) Branch hours as needed for Itching. albuterol Yes [id number] 2{puff} Inhale 2 Univers 90 1-05 Puffs ity of mcg/actuati 00:00: every 4 [place] as on inhaler 00 (four) Medical hours as Branch needed for Wheezing or Shortness of Breath. hydrOXYzine Yes [id number] 25mg Take 1 Univers 25 mg 1-05 tablet by ity of tablet 00:00: mouth [place] 00 every 6 Medical (six) Branch hours as needed for Itching. albuterol Yes [id number] 2{puff} Inhale 2 Univers 90 1-05 Puffs ity of mcg/actuati 00:00: every 4 [place] as on inhaler 00 (four) Medical hours as Branch needed for Wheezing or Shortness of Breath. hydrOXYzine 2020-0 Yes [id number] 25mg Take 1 Univers 25 mg 1-05 tablet by ity of tablet 00:00: mouth [place] 00 every 6 Medical (six) Branch hours as needed for Itching. albuterol Yes [id number] 2{puff} Inhale 2 Univers 90 1-05 Puffs ity of mcg/actuati 00:00: every 4 [place] as on inhaler 00 (four) Medical hours as Branch needed for Wheezing or Shortness of Breath. hydrOXYzine 2020-0 Yes [id number] 25mg Take 1 Univers 25 mg 1-05 tablet by ity of tablet 00:00: mouth [place] 00 every 6 Medical (six) Branch hours as needed for Itching. albuterol 0 Yes [id number] 2{puff} Inhale 2 Univers 90 1-05 Puffs ity of mcg/actuati 00:00: every 4 [place] as on inhaler 00 (four) Medical hours as Branch needed for Wheezing or Shortness of Breath. hydrOXYzine Yes [id number] 25mg Take 1 Univers 25 mg 1-05 tablet by ity of tablet 00:00: mouth [place] 00 every 6 Medical (six) Branch hours as needed for Itching. albuterol Yes [id number] 2{puff} Inhale 2 Univers 90 1-05 Puffs ity of mcg/actuati 00:00: every 4 [place] as on inhaler 00 (four) Medical hours as Branch needed for Wheezing or Shortness of Breath. hydrOXYzine Yes [id number] 25mg Take 1 Univers 25 mg 1-05 tablet by ity of tablet 00:00: mouth [place] 00 every 6 Medical (six) Branch hours as needed for Itching. albuterol Yes [id number] 2{puff} Inhale 2 Univers 90 1-05 Puffs ity of mcg/actuati 00:00: every 4 [place] as on inhaler 00 (four) Medical hours as Branch needed for Wheezing or Shortness of Breath. amoxicillin 2020- No [id number] 1{tbl} Take 1 Univers -clavulanat 1-05 -13 [...] as Branch needed for Pain (scale 4-6). Immunizations Ordered Filled Date Status Comments Source Immunization Name Immunization Name TDAP 2017-04-24 Completed [facility] 00:00: [facility] TDAP 2017-04-24 Completed [facility] :00: [facility] TDAP 2017-04-24 Completed [facility] :00: [facility] TDAP 2017-04-24 Completed [facility] 00:00:00 [facility] TDAP Unknown Completed [facility] Vital Signs Vital Name Observation Time Observation Value Comments Source Systolic blood 2023-02-03 18:05:00 91 mm[Hg] Univer sity of pressure [place] [facility] Diastolic blood 2023-02-03 18:05:00 63 mm[Hg] Unive rsity of pressure [place] [facility] Heart rate 2023-02-03 18:05:00 74 /min [facility] [place] [facility] Body height 2023-02-03 18:05:00 180.3 cm [facility] [place] [facility] Body weight 2023-02-03 18:05:00 86.637 kg [facility] [place] [facility] BMI 2023-02-03 18:05:00 26.64 kg/m2 [facility] [place] [facility] HEIGHT 2022-12-23 00:00:00 180.3 cm HEIGHT 2022-12-23 00:00:00 180.3 cm HEIGHT 2022-12-23 00:00:00 180.3 cm Systolic blood 2022-11-08 01:34:11 111 mm[Hg] Univer sity of pressure [place] [facility] [place] Diastolic blood 2022-11-08 01:34:11 81 mm[Hg] Unive rsity of pressure [place] [facility] Heart rate 2022-11-08 01:34:11 60 /min [facility] [place] [facility] Respiratory rate 2022-11-08 01:34:11 13 /min Univ ersity of [facility] Oxygen saturation in 2022-11-08 01:34:11 94 /min [facility] Arterial blood by [facility] Pulse oximetry [place] Body temperature 2022-11-07 20:40:00 36.39 Yanet Univ ersity [facility] [place] [facility] Body height 2022-11-07 20:40:00 180.3 cm [facility] [place] [facility] Body weight 2022-11-07 20:40:00 90.719 kg [facility] [place] [facility] BMI 2022-11-07 20:40:00 27.89 kg/m2 [facility] [place] [facility] Systolic blood 2022-10-28 22:00:00 113 mm[Hg] Univer sity of pressure [facility] Diastolic blood 2022-10-28 22:00:00 69 mm[Hg] Unive rsity of pressure [place] [facility] Heart rate 2022-10-28 22:00:00 61 /min [facility] [place] [facility] Respiratory rate 2022-10-28 22:00:00 20 /min Univ ersity [facility] [place] [facility] Oxygen saturation in 2022-10-28 22:00:00 96 /min University of Arterial blood by [facility] Pulse oximetry Branch Body temperature 2022-10-28 19:05:00 37 Yanet Univ [facility] Body height 2022-10-28 19:05:00 180.3 cm [facility] Body weight 2022-10-28 19:05:00 90.719 kg [facility] BMI 2022-10-28 19:05:00 27.89 kg/m2 [facility] Systolic blood 2022-06-24 07:00:00 98 mm[Hg] [facility] pressure Diastolic blood 2022-06-24 07:00:00 64 mm[Hg] [facility] pressure Heart rate 2022-06-24 07:00:00 64 /min [facility] 2022-06-24 07:00:00 36.5 Yanet [facility] Respiratory rate 2022-06-24 07:00:00 18 /min [facility] Systolic blood 2022-06-24 07:00:00 98 mm[Hg] [facility] pressure Diastolic blood 2022-06-24 07:00:00 64 mm[Hg] [facility] pressure Heart rate 2022-06-24 07:00:00 64 /min [facility] Body temperature 2022-06-24 07:00:00 36.5 [facility] Respiratory rate 2022-06-24 07:00:00 18 /min [facility] Oxygen saturation in 2022-06-24 03:00:00 96 /min [facility] Arterial blood by Pulse oximetry Oxygen saturation in 2022-06-24 03:00:00 96 /min [facility] Arterial blood by Pulse oximetry Body height 2022-06-21 17:53:00 180.3 cm [facility] Body weight 2022-06-21 17:53:00 106.595 kg [facility] BMI 2022-06-21 17:53:00 32.78 [facility]m2 [facility] Body height 2022-06-21 17:53:00 180.3 cm [facility] Body weight 2022-06-21 17:53:00 106.595 [facility] BMI 2022-06-21 17:53:00 32.78 kg/m2 [facility] Systolic blood 2022-06-24 07:00:00 98 mm[Hg] [facility] pressure Diastolic blood 2022-06-24 07:00:00 64 mm[Hg] [facility] pressure Heart rate 2022-06-24 07:00:00 64 /min [facility] Body temperature 2022-06-24 07:00:00 36.5 [facility] Respiratory rate 2022-06-24 07:00:00 18 /min [facility] Systolic blood 2022-06-24 07:00:00 98 mm[Hg] [facility] pressure Diastolic blood 2022-06-24 07:00:00 64 mm[Hg] [facility] pressure Heart rate 2022-06-24 07:00:00 64 /min [facility] Body temperature 2022-06-24 07:00:00 36.5 Yanet [facility] Respiratory rate 2022-06-24 07:00:00 18 /min [facility] Oxygen saturation in 2022-06-24 03:00:00 96 /min [facility] Arterial blood by Pulse oximetry Oxygen saturation in 2022-06-24 03:00:00 96 /min [facility] Arterial blood by Pulse oximetry Body height 2022-06-21 17:53:00 180.3 cm [facility] Body weight 2022-06-21 17:53:00 106.595 kg [facility] BMI 2022-06-21 17:53:00 32.78 kg/m2 [facility] Body height 2022-06-21 17:53:00 180.3 cm [facility] Body weight 2022-06-21 17:53:00 106.595 kg [facility] BMI 2022-06-21 17:53:00 32.78 kg/m2 [facility] Respiratory rate 2022-06-01 00:00:00 11 /min [facility] 2022-06-01 00:00:00 110 mm[Hg] Farzanaer maria l [facility] Diastolic blood 2022-06-01 00:00:00 80 mm[Hg] Unive rsity [facility] Heart rate 2022-06-01 00:00:00 81 /min [facility] [place] [facility] Oxygen saturation in 2022-05-31 23:30:00 98 /min University of Arterial blood by [facility] jani Pulse oximetry Branch Body weight 2022-05-31 21:04:00 95.255 kg [facility] [place] [facility] BMI 2022-05-31 21:04:00 29.29 kg/m2 [facility] [place] [facility] Systolic blood 2020-05-31 03:01:00 105 mm[Hg] Univer sity of pressure [place] [facility] Diastolic blood 2020-05-31 03:01:00 71 mm[Hg] Unive rsity of pressure [place] [facility] Heart rate 2020-05-31 03:01:00 73 /min [facility] [place] [facility] Body temperature 2020-05-31 03:01:00 36.56 Yanet [facility] [place] [facility] Respiratory rate 2020-05-31 03:01:00 18 /min [facility] [place] [facility] Oxygen saturation in 2020-05-31 03:01:00 98 /min University of Arterial blood by [facility] Pulse oximetry Branch Body height 2020-05-30 21:27:00 180.3 cm [facility] [place] [facility] Body weight 2020-05-30 21:27:00 92.987 kg [facility] [place] [facility] BMI 2020-05-30 21:27:00 28.59 kg/m2 [facility] [place] [facility] Systolic blood 2020-05-31 03:01:00 105 mm[Hg] Univer sity of pressure [place] [facility] Diastolic blood 2020-05-31 03:01:00 71 mm[Hg] Unive rsity of pressure [place] [facility] Heart rate 2020-05-31 03:01:00 73 /min [facility] [place] [facility] Body temperature 2020-05-31 03:01:00 36.56 Yanet [facility] [place] [facility] Respiratory rate 2020-05-31 03:01:00 18 /min [facility] [place] [facility] Oxygen saturation in 2020-05-31 03:01:00 98 /min University of Arterial blood by [facility] Pulse oximetry Branch Body height 2020-05-30 21:27:00 180.3 cm [facility] [place] [facility] Body weight 2020-05-30 21:27:00 92.987 kg [facility] BMI 2020-05-30 21:27:00 28.59 kg/m2 [facility] Heart rate 2022-12-24 12:00:00 66 /min [facility] Respiratory rate 2022-12-24 12:00:00 16 /min [facility] Oxygen saturation in 2022-12-24 12:00:00 99 /min [facility] Arterial blood by Medical Ce nter Pulse oximetry Systolic blood 2022-12-24 11:00:00 112 mm[Hg] [facility] Diastolic blood 2022-12-24 11:00:00 79 mm[Hg] [facility] Body temperature 2022-12-24 11:00:00 36.56 Yanet [facility] Body height 2022-12-23 00:00:00 180.3 cm [facility] Systolic blood 2022-06-24 07:00:00 98 mm[Hg] [facility] pressure Diastolic blood 2022-06-24 07:00:00 64 mm[Hg] [facility] pressure Heart rate 2022-06-24 07:00:00 64 /min [facility] Body temperature 2022-06-24 07:00:00 36.5 Yanet [facility] Respiratory rate 2022-06-24 07:00:00 18 /min [facility] Oxygen saturation in 2022-06-24 03:00:00 96 /min [facility] Arterial blood by Pulse oximetry Body height 2022-06-21 17:53:00 180.3 cm [facility] Body weight 2022-06-21 17:53:00 106.595 kg [facility] BMI 2022-06-21 17:53:00 32.78 kg/m2 [facility] BP Systolic 2022-06-10 15:11:00 104 mm[Hg] BP [...] Performed POCT-GLUCOSE METER 2022-12-24 08:06:00 Francisca Alston [facility] RAPID DRUG SCREEN, URINE 2022-12-24 03:37:00 Diego Beckford [facility] URINALYSIS W/ REFLEX 2022-12-24 03:37:00 Diego Beckford [facility] URINE CULTURE [facility] CBC W/PLT COUNT & AUTO 2022-12-24 03:34:00 Diego Beckford [facility] DIFFERENTIAL [facility] BASIC METABOLIC PANEL 2022-12-24 03:34:00 Олег [facility] CBC W/PLT COUNT & AUTO 2022-12-24 03:34:00 Diego Beckford [facility] DIFFERENTIAL [facility] POCT-GLUCOSE METER 2022-12-23 20:46:00 Francisca Alston [facility] POCT-GLUCOSE METER 2022-12-23 17:57:00 Francisca Alston [facility] EEG AWAKE AND DROWSY 2022-12-23 15:54:13 Harris Fernandes [facility] POCT-GLUCOSE METER 2022-12-23 13:30:00 Francisca Alston [facility] ETHANOL 2022-12-23 07:25:00 Harris Fernandes [facility] POCT-GLUCOSE METER 2022-12-23 06:01:00 Palmer, Raúl [facility] HIGH SENSITIVITY 2022-12-23 04:56:00 Deigo Beckford [facility] TROPONIN I [facility] LACTIC ACID, VENOUS 2022-12-23 04:56:00 Diego Beckford [facility] ECG 12-LEAD 2022-12-23 04:23:09 Diego Beckford [facility] ECG 12-LEAD 2022-12-23 04:23:09 Unknown, Hl7 Doctor [facility] ECG 12-LEAD 2022-12-23 04:23:09 Unknown, Hl7 Doctor [facility] CBC W/PLT COUNT & AUTO 2022-12-23 00:17:00 [facility] COMPREHENSIVE METABOLIC 2022-12-23 00:17:00 [facility] MAGNESIUM 2022-12-23 00:17:00 [facility] PHOSPHORUS 2022-12-23 00:17:00 [facility] TSH/FREE T4 IF INDICATED 2022-12-23 00:17:00 [facility] LIPID PANEL 2022-12-23 00:17:00 [facility] HEMOGLOBIN A1C 2022-12-23 00:17:00 [facility] PROTHROMBIN TIME/INR 2022-12-23 00:17:00 [facility] APTT 2022-12-23 00:17:00 [facility] CALCIUM, IONIZED 2022-12-23 00:17:00 [facility] T4, FREE 2022-12-23 00:17:00 [facility] HC LAB HIV-1 AG 2022-12-23 00:17:00 [facility] CBC W/PLT COUNT & AUTO 2022-12-23 00:17:00 Peggy Martinez [facility] POCT TEST 2022-11-07 21:42:00 Jayda Hernandez [facility] BLOOD CULTURE SCREEN 2022-11-07 21:34:00 Jayda Hernandez [facility] LIPASE 2022-11-07 21:32:00 Jayda Hernandez [facility] COMP. METABOLIC PANEL 2022-11-07 21:32:00 Jayda Hernandez [facility] ([id number]) [facility] CBC WITH DIFF 2022-11-07 21:32:00 Jayda Hernandez [facility] URINALYSIS 2022-11-07 21:32:00 Jayda Hernandez [facility] BLOOD CULTURE SCREEN 2022-11-07 21:20:00 Jayda Hernandez [facility] CONSENT/REFUSAL FOR 2022-11-07 20:32:35 Doctor Unassigned[facility] Name [facility] URINALYSIS 2022-10-28 20:12:00 Jake Renner [facility] LIPASE 2022-10-28 19:38:00 Jake Renner [facility] COMP. METABOLIC PANEL 2022-10-28 19:38:00 Jake Renner [facility] ([id number]) [facility] CBC WITH DIFF 2022-10-28 19:38:00 Jake Renner [facility] LACTIC ACID WHOLE BLOOD 2022-10-28 19:38:00 Jake Renner [facility] CONSENT/REFUSAL FOR 2022-10-28 18:56:54 [facility] REFERRAL- 2022-09-23 05:01:00 Doctor Unassigned, No [facility] REQUEST/RESPONSE Name [facility] BASIC METABOLIC PANEL 2022-06-24 03:50:00 Chemo Al [facility] CBC/DIFF 2022-06-24 03:50:00 [facility]o [facility] CBC 2022-06-24 03:50:00 [facility] CBC/DIFF 2022-06-24 03:50:00 Chemo Al He [facility]th BASIC METABOLIC PANEL 2022-06-24 03:50:00 Servando [facility] CBC 2022-06-24 03:50:00 Chemo Al [facility] BASIC METABOLIC PANEL 2022-06-24 03:50:00 Al, [facility]o [facility] CBC/DIFF 2022-06-24 03:50:00 Chemo Al He alth CBC 2022-06-24 03:50:00 Chemo Al Michi [facility] NUTRITION CONSULT 2022-06-22 22:07:16 Stormy Mcdaniel [facility] ASSESSMENT NUTRITION CONSULT 2022-06-22 22:07:16 Stormy Mcdaniel [facility] ASSESSMENT NUTRITION CONSULT 2022-06-22 22:07:16 Stormy Mcdaniel [facility] ASSESSMENT NUTRITION CONSULT 2022-06-22 19:44:51 Stormy Mcdaniel a lth ASSESSMENT NUTRITION CONSULT 2022-06-22 19:44:51 Stormy Mcdaniel a lth ASSESSMENT NUTRITION CONSULT 2022-06-22 19:44:51 Stormy Mcdaniel agustina lth ASSESSMENT 12 LEAD EKG 2022-06-22 06:51:58 Sugey Morales h 12 LEAD EKG 2022-06-22 06:51:58 Sugey Morales h 12 LEAD EKG 2022-06-22 06:51:58 Sugey Morales CORONAVIRUS, COVID-19, 2022-06-22 03:38:[address] [facility] MANJIT SARS-COV-2, FLU A/B, RSV 2022-06-22 03:38:00 Leanna Schaefer [facility] SARS-COV-2, FLU A/B, RSV 2022-06-22 03:38:00 Leanna Schaefer [facility] CORONAVIRUS, COVID-19, 2022-06-22 03:38:00 Leanna Schaefer is Health MANJIT CORONAVIRUS, COVID-19, 2022-06-22 03:38:00 Leanna Schaefer is Health MANJIT SARS-COV-2, FLU A/B, RSV 2022-06-22 03:38:00 Leanna Schaefer [facility] URINE DRUG SCREEN 2022-06-21 22:05:00 Charli Chaudhari Hea lt URINE DRUG SCREEN 2022-06-21 22:05:00 [facility]li [facility] URINE DRUG SCREEN 2022-06-21 22:05:00 Charli Chaudhari [facility] BASIC METABOLIC PANEL 2022-06-21 22:04:00 Charli Chaudhari Health CBC/DIFF 2022-06-21 22:04:00 Charli Chaudhari Healt h FREE T3 2022-06-21 22:04:00 [facility] FREE T4 2022-06-21 22:04:00 [facility]ana Gomez [facility] TOTAL T3 2022-06-21 22:04:00 [facility]ugey Morales [facility] THYROID STIMULATING 2022-06-21 22:04:00 Juana Gomez [facility] HORMONE (TSH) CBC 2022-06-21 22:04:00 Charli Chaudhari [facility] CBC/DIFF 2022-06-21 22:04:00 Charli Chaudhari [facility]alt [facility] BASIC METABOLIC PANEL 2022-06-21 22:04:00 Charli Chaudhari Health CBC 2022-06-21 22:04:00 Charli Chaudhari Healt [facility] THYROID STIMULATING 2022-06-21 22:04:00 Juana Gomez [facility] HORMONE (TSH) FREE T4 2022-06-21 22:04:00 Juana Gomez [facility]alt [facility] FREE T3 2022-06-21 22:04:00 Sugey Morales [facility] TOTAL T3 2022-06-21 22:04:00 [facility]ugey Morales [facility] BASIC METABOLIC PANEL 2022-06-21 22:04:00 Charli Chaudhari Health CBC/DIFF 2022-06-21 22:04:00 [facility] 2022-06-21 22:04:00 Sugey Morales [facility] FREE T4 2022-06-21 22:04:00 Juana Gomez h TOTAL T3 2022-06-21 22:04:00 [facility] THYROID STIMULATING 2022-06-21 22:04:00 [facility] HORMONE (TSH) CBC 2022-06-21 22:04:00 Charli Chaudhari [facility] h REFERRAL- 2022-06-10 06:01:00 Doctor Unassigned, [place] [facility] REQUEST/RESPONSE Name [facility] URINALYSIS 2022-05-31 22:18:00 Genia Meade [facility] CT STROKE ANGIOGRAM HEAD 2022-05-31 21:59:00 Genia Maede [facility] CT STROKE ANGIOGRAM NECK 2022-05-31 21:59:00 Genia Meade [facility] CT STROKE HEAD WO 2022-05-31 21:57:00 Genia Meade [facility] CONTRAST [facility] TROPONIN I 2022-05-31 21:36:00 Genia Meade [facility] BASIC METABOLIC PANEL 2022-05-31 21:36:00 [facility], CO[facility], [facility] GLUCOSE, BUN, CREATININE, CA) CBC WITHOUT DIFF 2022-05-31 21:36:00 Genia Meade [facility] PROTHROMBIN TIME / INR 2022-05-31 21:36:00 [facility] 2022-05-31 21:36:00 Genia Meade [facility] THRMPLAS JAMIE [facility] POCT GLUCOSE (AUTOMATED) 2022-05-31 21:35:00 Genia Meade [facility] CONSENT/REFUSAL FOR 2022-05-31 20:58:19 Doctor Unassigned, No [facility] DIAGNOSIS AND TREATMENT Name [facility] URINALYSIS 2020-05-31 03:43:00 Janene Navas [facility] CT CHEST PULMONARY 2020-05-31 01:43:20 Janene Navas [facility] ANGIOGRAM Medical Branch POCT TEST 2020-05-31 01:29:00 Janene Navas [facility] COVID-19 (ID NOW RAPID 2020-05-31 00:53:00 Janene Navas [facility] TESTING) Medical Branch XR CHEST 1 VW 2020-05-31 00:09:22 Janene Navas [facility] TROPONIN I 2020-05-31 00:03:00 Janene Navas [facility] COMP. METABOLIC PANEL 2020-05-31 00:03:00 Janene Navas [facility] ([id number]) Medical Branch CBC WITH DIFF 2020-05-31 00:03:00 Janene Navas [facility] D-DIMER 2020-05-31 00:03:00 Janene Navas [facility] NOTICE OF PRIVACY 2020-05-30 21:02:17 Doctor Unassigned, No [facility] PRACTICES Name [facility] Plan of Care Planned Activity Planned Date Details Comments Source Future Scheduled 2027-04-24 DTAP/TDAP/TD VACCINES ([address] [facility] Test 00:00:00 - Td or Tdap) [code = Medica [facility] Center DTAP/TDAP/TD VACCINES (2 - Td or Tdap)] Future Scheduled 2027-04-24 DTAP/TDAP/TD VACCINES ([address] [facility] Test 00:00:00 - Td or Tdap) [code = Medica l Center DTAP/TDAP/TD VACCINES (2 - Td or Tdap)] Future Scheduled 2027-04-24 DTAP/TDAP/TD VACCINES ([address] [facility] Test 00:00:00 - Td or Tdap) [code = Medica l Center DTAP/TDAP/TD VACCINES (2 - Td or Tdap)] Future Scheduled 2027-04-24 DTAP/TDAP/TD VACCINES ([address] [facility] Test 00:00:00 - Td or Tdap) [code = Medica l Center DTAP/TDAP/TD VACCINES (2 - Td or Tdap)] Future Scheduled 2027-04-24 DTAP/TDAP/TD VACCINES ([address] [facility] Test 00:00:00 - Td or Tdap) [code = Medica l Center DTAP/TDAP/TD VACCINES (2 - Td or Tdap)] Future Scheduled 2023-03-22 COVID-19 VACCINE (#1) [facility] [code = COVID-19 VACCINE Hos pital (#1)] Future Scheduled 2023-03-22 Pneumococcal Vaccine: [facility] 14:51:36 Pediatrics (0 to 5 Years) Ho spital and At-Risk Patients (6 to 64 Years) (1 - PCV) [code = Pneumococcal Vaccine: Pediatrics (0 to 5 Years) and At-Risk Patients (6 to 64 Years) (1 - PCV)] Future Scheduled 2023-03-22 Hepatitis C screening [facility] 14:51:36 (procedure) [code = Hospital [id number]] Future Scheduled 2023-03-22 Screening for malignant [facility] Test 14:51:36 neoplasm of [facility] (procedure) [code = 290552957] Future Scheduled 2023-03-22 BREAST CANCER SCREENING [facility] Test 14:51:36 [code = BREAST CANCER Hospit al SCREENING] Future Scheduled 2023-03-22 INFLUENZA VACCINE (#1) [facility] Test 14:51:36 [code = INFLUENZA VACCINE Ho spital (#1)] Future Scheduled 2023-03-22 COVID-19 VACCINE (#1) [facility] 14:51:36 [code = COVID-19 VACCINE Hos pital (#1)] Future Scheduled 2023-03-22 Pneumococcal Vaccine: [facility] Test 14:51:36 Pediatrics (0 to 5 Years) Ho spital and At-Risk Patients (6 to 64 Years) (1 - PCV) [code = Pneumococcal Vaccine: Pediatrics (0 to 5 Years) and At-Risk Patients (6 to 64 Years) (1 - PCV)] Future Scheduled 2023-03-22 Hepatitis C screening [facility] 14:51:36 (procedure) [code = Hospital [id number]] Future Scheduled 2023-03-22 Screening for malignant [facility] Test 14:51:36 neoplasm of cervix Hospital (procedure) [code = 864272184] Future Scheduled 2023-03-22 BREAST CANCER SCREENING [facility] Test 14:51:36 [code = BREAST CANCER Hospit al SCREENING] Future Scheduled 2023-03-22 INFLUENZA VACCINE (#1) [facility] 14:51:36 [code = INFLUENZA VACCINE Ho spital (#1)] Future Scheduled 2023-03-22 COVID-19 VACCINE (#1) [facility] 14:51:36 [code = COVID-19 VACCINE Hos pital (#1)] Future Scheduled 2023-03-22 Pneumococcal Vaccine: [facility] Test 14:51:36 Pediatrics (0 to 5 Years) Ho spital and At-Risk Patients (6 to 64 Years) (1 - PCV) [code = Pneumococcal Vaccine: Pediatrics (0 to 5 Years) and At-Risk Patients (6 to 64 Years) (1 - PCV)] Future Scheduled 2023-03-22 Hepatitis C screening [facility] 14:51:36 (procedure) [code = Hospital [id number]] Future Scheduled 2023-03-22 Screening for malignant [facility] Test 14:51:36 neoplasm of cervix Hospital (procedure) [code = 933271814] Future Scheduled 2023-03-22 BREAST CANCER SCREENING [facility] 14:51:36 [code = BREAST CANCER Hospit al SCREENING] Future Scheduled 2023-03-22 INFLUENZA VACCINE (#1) [facility] 14:51:36 [code = INFLUENZA VACCINE Ho spital (#1)] Future Scheduled 2023-02-23 IMM Influenza Seasonal H [...] Vaccine Me [facility]ical Center (#1)] Future Scheduled 2023-01-24 Influenza Vaccine (#1) [facility] 00:[facility] [code = Influenza Vaccine Me [facility]ical Center (#1)] Future Scheduled 2023-01-24 Influenza Vaccine (#1) [facility] 00:00:00 [code = Influenza Vaccine Me dical Center (#1)] Future Scheduled 2023-01-24 Influenza Vaccine (#1) [facility] 00:00:00 [code = Influenza Vaccine Me dical Center (#1)] Future Scheduled 2023-01-24 [facility] [...] [facility]odist Test 11:34:14 (procedure) [code = Hospital 936151611] Future Scheduled 2022-12-29 Screening for malignant [facility] 11:34:14 neoplasm of cervix Hospital (procedure) [code = 867387459] Future Scheduled 2022-12-29 BREAST CANCER SCREENING [facility] 11:34:14 [code = BREAST CANCER Hospit al SCREENING] Future Scheduled 2022-12-29 INFLUENZA VACCINE [code = [facility] Test 11:34:14 INFLUENZA VACCINE] Hospital Future Scheduled [...] thodist Test 17:26:25 (procedure) [code = Hospital 859196117] Future Scheduled 2022-11-10 Screening for malignant [facility] Test 17:26:25 neoplasm of cervix Hospital (procedure) [code = 977118760] Future Scheduled 2022-11-10 BREAST CANCER SCREENING [facility] 17:26:25 [code = BREAST CANCER Hospit al SCREENING] Future Scheduled 2022-11-10 INFLUENZA VACCINE [code = [facility] Test 17:26:25 INFLUENZA VACCINE] Hospital Future Scheduled [...] thodist Test 03:05:42 (procedure) [code = Hospital 747563933] Future Scheduled 2022-08-26 Screening for malignant [facility] Test 03:05:42 neoplasm of cervix Hospital (procedure) [code = 274993943] Future Scheduled 2022-08-26 BREAST CANCER SCREENING [facility] 03:05:42 [code = BREAST CANCER Hospit al SCREENING] Future Scheduled 2022-08-26 INFLUENZA VACCINE [code = [facility] Test 03:05:42 INFLUENZA VACCINE] Hospital Future Scheduled [...] thodist Test 03:05:42 (procedure) [code = Hospital 040227677] Future Scheduled 2022-08-26 Screening for malignant [facility] 03:05:42 neoplasm of cervix Hospital (procedure) [code = 972657658] Future Scheduled 2022-08-26 BREAST CANCER SCREENING [facility] 03:05:42 [code = BREAST CANCER Hospit al SCREENING] Future Scheduled 2022-08-26 INFLUENZA VACCINE [code = [facility] Test 03:05:42 INFLUENZA VACCINE] Hospital Future Scheduled [...] [facility]odist Test 03:05:42 (procedure) [code = Hospital 948704921] Future Scheduled 2022-08-26 Screening for malignant [facility] 03:05:42 neoplasm of cervix Hospital (procedure) [code = 228096661] Future Scheduled 2022-08-26 BREAST CANCER SCREENING [facility] 03:05:42 [code = BREAST CANCER Hospit al SCREENING] Future Scheduled 2022-08-26 INFLUENZA VACCINE [code = [facility] Test 03:05:42 INFLUENZA VACCINE] Hospital Future Scheduled [...] thodist Test 03:05:42 (procedure) [code = Hospital 620264017] Future Scheduled 2022-08-26 Screening for malignant [facility] 03:05:42 neoplasm of cervix Hospital (procedure) [code = 750234529] Future Scheduled 2022-08-26 BREAST CANCER SCREENING [facility] 03:05:42 [code = BREAST CANCER Hospit al SCREENING] Future Scheduled 2022-08-26 INFLUENZA VACCINE [code = [facility] Test 03:05:42 INFLUENZA VACCINE] Hospital Future Scheduled [...] thodist Test 09:36:51 (procedure) [code = Hospital 080966477] Future Scheduled 2022-08-05 Screening for malignant [facility] 09:36:51 neoplasm of cervix Hospital (procedure) [code = 939975190] Future Scheduled 2022-08-05 BREAST CANCER SCREENING [facility] 09:36:51 [code = BREAST CANCER Hospit al SCREENING] Future Scheduled 2022-08-05 INFLUENZA VACCINE [code = [facility] Test 09:36:51 INFLUENZA VACCINE] Hospital Future Scheduled [...] thodist Test 09:36:51 (procedure) [code = Hospital 166716952] Future Scheduled 2022-08-05 Screening for malignant [facility] 09:36:51 neoplasm of cervix Hospital (procedure) [code = 831471105] Future Scheduled 2022-08-05 BREAST CANCER SCREENING [facility] 09:36:51 [code = BREAST CANCER Hospit al SCREENING] Future Scheduled 2022-08-05 INFLUENZA VACCINE [code = [facility] Test 09:36:51 INFLUENZA VACCINE] Hospital Future Scheduled [...] thodist Test 14:08:30 (procedure) [code = Hospital 637318066] Future Scheduled 2022-06-21 Screening for malignant [facility] 14:08:30 neoplasm of cervix Hospital (procedure) [code = 744880886] Future Scheduled 2022-06-21 BREAST CANCER SCREENING [facility] 14:08:30 [code = BREAST CANCER Hospit al SCREENING] Future Scheduled 2022-06-21 INFLUENZA VACCINE [code = [facility] Test 14:08:30 INFLUENZA VACCINE] Hospital Future Scheduled [...] [facility]odist Test 14:08:30 (procedure) [code = Hospital 361103487] Future Scheduled 2022-06-21 Screening for malignant [facility] 14:08:30 neoplasm of cervix Hospital (procedure) [code = 078681214] Future Scheduled 2022-06-21 BREAST CANCER SCREENING [facility] 14:08:30 [code = BREAST CANCER Hospit al SCREENING] Future Scheduled 2022-06-21 INFLUENZA VACCINE [code = [facility] Test 14:08:30 INFLUENZA VACCINE] Hospital Future Scheduled [...] [facility]odist Test 14:18:23 (procedure) [code = Hospital 904577755] Future Scheduled 2022-06-17 Screening for malignant [facility] 14:18:23 neoplasm of cervix Hospital (procedure) [code = 918307762] Future Scheduled 2022-06-17 BREAST CANCER SCREENING [facility] 14:18:23 [code = BREAST CANCER Hospit al SCREENING] Future Scheduled 2022-06-17 INFLUENZA VACCINE [code = [facility] Test 14:18:23 INFLUENZA VACCINE] Hospital Future Scheduled [...] thodist Test 06:48:16 (procedure) [code = Hospital 373743828] Future Scheduled 2022-05-20 Screening for malignant [facility] 06:48:16 neoplasm of cervix Hospital (procedure) [code = 722318831] Future Scheduled 2022-05-20 BREAST CANCER SCREENING [facility] 06:48:16 [code = BREAST CANCER Hospit al SCREENING] Future Scheduled 2022-05-20 INFLUENZA VACCINE [code = [facility] Test 06:48:16 INFLUENZA VACCINE] Hospital Future Scheduled [...] thodist Test 06:48:16 (procedure) [code = Hospital 665873125] Future Scheduled 2022-05-20 Screening for malignant [facility] 06:48:16 neoplasm of cervix Hospital (procedure) [code = 355866889] Future Scheduled 2022-05-20 BREAST CANCER SCREENING [facility] 06:48:16 [code = BREAST CANCER Hospit al SCREENING] Future Scheduled 2022-05-20 INFLUENZA VACCINE [code = [facility] Test 06:48:16 INFLUENZA VACCINE] Hospital Future Scheduled 2022-04-16 HEPATITIS B VACCINES (1 [facility] Test 11:13:19 of 3 - 3-dose series) [...] thodist Test 11:13:19 (procedure) [code = Hospital 427869429] Future Scheduled 2022-04-16 Screening for malignant [facility] Test 11:13:19 neoplasm of cervix [facility] (procedure) [code = 624891332] Future Scheduled 2022-04-16 BREAST CANCER SCREENING [facility] Test 11:13:19 [code = BREAST CANCER Hospit al SCREENING] Future Scheduled 2022-04-16 INFLUENZA VACCINE [code = [facility] Test 11:13:19 INFLUENZA VACCINE] Hospital Future Scheduled 2022-04-16 HEPATITIS B VACCINES (1 [facility] Test 11:13:19 of 3 - 3-dose series) [...] thodist Test 11:13:19 (procedure) [code = Hospital 033890842] Future Scheduled 2022-04-16 Screening for malignant [facility] 11:13:19 neoplasm of cervix Hospital (procedure) [code = 999506084] Future Scheduled 2022-04-16 BREAST CANCER SCREENING [facility] 11:13:19 [code = BREAST CANCER Hospit al SCREENING] Future Scheduled 2022-04-16 INFLUENZA VACCINE [code = [facility] Test 11:13:19 INFLUENZA VACCINE] Hospital Future Scheduled [...] Future Scheduled 2022-01-25 HEPATITIS B VACCINES (1 [facility] 19:24:17 of 3 - 3-dose series) [...] thodist Test 19:24:17 (procedure) [code = Hospital 457503353] Future Scheduled 2022-01-25 Screening for malignant [facility] 19:24:17 neoplasm of cervix Hospital (procedure) [code = 738858830] Future Scheduled 2022-01-25 BREAST CANCER SCREENING [facility] 19:24:17 [code = BREAST CANCER Hospit al SCREENING] Future Scheduled 2022-01-25 INFLUENZA VACCINE [code = [facility] Test 19:24:17 INFLUENZA VACCINE] Hospital Future Scheduled [...] 00:00:00 neoplasm of cervix (procedure) [code = 311339165] Future Scheduled 2009 Screening for malignant [facility] Test 00:00:00 neoplasm of cervix (procedure) [code = 323562127] Future Scheduled 2009 Screening for malignant [facility] Test 00:00:00 neoplasm of cervix (procedure) [code = 912637751] Future Scheduled 2009 Screening for malignant [facility] Test 00:00:00 neoplasm of cervix (procedure) [code = 338228728] Future Scheduled 2009 Screening for malignant [facility] Test 00:00:00 neoplasm of cervix (procedure) [code = 695270634] Future Scheduled 2009 Screening for malignant [facility] Test 00:00:00 neoplasm of cervix (procedure) [code = 360670304] Future Scheduled 2009 Screening for malignant [facility] Test 00:00:00 neoplasm of cervix (procedure) [code = 127993240] Future Scheduled 2009 Screening for malignant [facility] Test 00:00:00 neoplasm of cervix (procedure) [code = 089842080] Future Scheduled 2009 Screening for malignant [facility] Test 00:00:00 neoplasm of cervix (procedure) [code = 821114796] Future Scheduled 2009 Screening for malignant [facility] Test 00:00:00 neoplasm of cervix (procedure) [code = 129779347] Future Scheduled 2009 Screening for malignant [facility] Test 00:00:00 neoplasm of cervix (procedure) [code = 302703035] Future Scheduled 2009 Screening for malignant [facility] Test 00:00:00 neoplasm of cervix (procedure) [code = 186840266] Future Scheduled 2009 Screening for malignant [facility] Test 00:00:00 neoplasm of cervix (procedure) [code = 499020787] Future Scheduled 2009 Screening for malignant [facility] Test 00:00:00 neoplasm of cervix (procedure) [code = 229285047] Future Scheduled 2009 Screening for malignant [facility] Test 00:00:00 neoplasm of cervix (procedure) [code = 455990914] Future Scheduled 2009 Screening for malignant [facility] Test 00:00:00 neoplasm of cervix (procedure) [code = 807648975] Future Scheduled 2009 Screening for malignant [facility] Test 00:00:00 neoplasm of cervix (procedure) [code = 955766507] Future Scheduled 2009 Screening for malignant [facility] Test 00:00:00 neoplasm of cervix (procedure) [code = 527888729] Future Scheduled 2009 Screening for malignant [facility] Test 00:00:00 neoplasm of cervix (procedure) [code = 432163237] Future Scheduled 2009 Screening for malignant [facility] Test 00:00:00 neoplasm of cervix (procedure) [code = 260036931] Future Scheduled 2009 Screening for malignant [facility] Test 00:00:00 neoplasm of cervix (procedure) [code = 665586157] Future Scheduled 2009 Screening for malignant [facility] Test 00:00:00 neoplasm of cervix (procedure) [code = 469483555] Future Scheduled 2009 Screening for malignant [facility] Test 00:00:00 neoplasm of cervix (procedure) [code = 298792663] Future Scheduled 2000 Screening for malignant [facility] Test 00:00:00 neoplasm [facility] cervix [facility] (procedure) [code = 636211917] Future Scheduled 2000 Screening for malignant [facility] Test 00:00:00 neoplasm of cervix [facility] (procedure) [code = 775828358] Future Scheduled 2000 Screening for malignant [facility] Test 00:00:00 neoplasm of cervix [facility] (procedure) [code = 144666192] Future Scheduled 2000 Screening for malignant [facility] Test 00:00:00 neoplasm of cervix [facility] (procedure) [code = 159386363] Future Scheduled 2000 Screening for malignant [facility] Test 00:00:00 neoplasm of cervix (procedure) [code = 610449283] Future Scheduled [address] Screening for malignant [facility] Test 00:00:00 neoplasm of cervix [facility] (procedure) [code = 256951993] Future Scheduled 1997 [facility]ITIS [facility] [code = [facility]PAT[facility]IS [facility] Center SCREENING] Future Scheduled 1997 HEPATITIS C [facility] 00:00:00 [code = HEPATITIS C Medical Center SCREENING] Future Scheduled 1997 HEPATITIS C [facility] 00:00:00 [code = HEPATITIS C Medical Center SCREENING] Future Scheduled 1997 HEPATITIS C [facility] 00:00:00 [code = HEPATITIS C Medical Center SCREENING] Future Scheduled 1997 HEPATITIS C [facility] 00:00:00 [code = HEPATITIS C Medical Center SCREENING] Future Scheduled [address] [facility] 00:[facility]:00 virus screening [facility] (procedure) [code = 712132219] Future Scheduled [address] [facility] Test 00:00:00 Counseling and Screening Med ical Center (12+) [code = Tobacco Cessation Counseling and Screening (12+)] Future Scheduled [address] [facility] Test 00:00:00 Counseling and Screening Med ical Center (12+) [code = Tobacco Cessation Counseling and Screening (12+)] Future Scheduled [address] [facility] Test 00:00:00 Counseling and Screening Med ical Center (12+) [code = Tobacco Cessation Counseling and Screening (12+)] Future Scheduled [address] [facility] Test 00:00:00 Counseling and Screening Med ical Center (12+) [code = Tobacco Cessation Counseling and Screening (12+)] Future Scheduled [address] [facility] Test 00:00:00 Counseling and Screening Med ical Center (12+) [code = Tobacco Cessation Counseling and Screening (12+)] Future Scheduled 1979 COVID-19 VACCINE (#1) [facility] 00:[facility]:00 [code = COVID-19 VACCINE Med ical Center (#1)] Future Scheduled 1979 COVID-19 VACCINE (#1[facility] 00:00:00 [code = COVID-19 VACCINE Med ical Center (#1)] Future Scheduled 1979 COVID-19 VACCINE (#1[facility] 00:00:00 [code = COVID-19 VACCINE Med ical Center (#1)] Future Scheduled 1979 COVID-19 VACCINE (#1[facility] 00:00:00 [code = COVID-19 VACCINE Med ical Center (#1)] Future Scheduled 1979 COVID-19 Vaccine (#1) [facility] 00:00:00 [code = COVID-19 Vaccine (#1)] Future Scheduled 1979 COVID-19 Vaccine (#1) [facility] Test 00:00:00 [code = COVID-19 Vaccine (#1)] Future Scheduled 1979 COVID-19 Vaccine (#1) [facility] Test 00:00:00 [code = COVID-19 Vaccine (#1)] Future Scheduled 1979 COVID-19 Vaccine (#1) [facility] 00:00:00 [code = COVID-19 Vaccine (#1)] Future Scheduled 1979 COVID-19 Vaccine (#1) [facility] Test 00:00:00 [code = COVID-19 Vaccine (#1)] Future Scheduled 1979 COVID-19 Vaccine (#1) [facility] 00:00:00 [code = COVID-19 Vaccine (#1)] Future Scheduled 1979 COVID-19 Vaccine (#1) [facility] 00:00:00 [code = COVID-19 Vaccine (#1)] Future Scheduled 1979 COVID-19 Vaccine (#1) [facility] 00:00:00 [code = COVID-19 Vaccine (#1)] Future Scheduled 1979 COVID-19 Vaccine (#1) [facility] Test 00:00:00 [code = COVID-19 Vaccine (#1)] Future Scheduled 1979 COVID-19 Vaccine (#1) [facility] 00:00:00 [code = COVID-19 Vaccine (#1)] Future Scheduled 1979 COVID-19 Vaccine (#1) [facility] 00:00:00 [code = COVID-19 Vaccine (#1)] Future Scheduled 1979 COVID-19 Vaccine (#1) [facility] 00:00:00 [code = COVID-19 Vaccine (#1)] Future Scheduled 1979 COVID-19 VACCINE [facility] [code = COVID-19 VACCINE Med [facility] (#1)] Goal Plan of Care Note [code = 39129-3] Goal Plan of Care Note [code = 03939-1] Goal Plan of Care Note [code = 80097-2] Goal Plan of Care Note [code = 34215-7] Goal Plan of Care Note [code = 97728-5] Goal Plan of Care Note [code = 99882-1] Goal Plan of Care Note [code = 15467-2] Goal Plan of Care Note [code = 56775-7] Goal Plan of Care Note [code = 98184-2] Goal Plan of Care Note [code = 02812-1] Goal Plan of Care Note [code = 55801-7] Goal Plan of Care Note [code = 37904-8] Goal Plan of Care Note [code = 00139-3] Goal Plan of Care Note [code = 30268-8] Goal Plan of Care Note [code = 62497-7] Goal Plan of Care Note [code = 79916-4] Goal Plan of Care Note [code = 61341-3] Goal Plan of Care Note [code = 82776-0] Goal Plan of Care Note [code = 54870-9] Goal Plan of Care Note [code = 23762-1] Goal Plan of Care Note [code = 20607-3] Goal Plan of Care Note [code = 96056-8] Goal Plan of Care Note [code = 00383-1] Goal Plan of Care Note [code = 15655-5] Goal Plan of Care Note [code = 18819-8] Goal Plan of Care Note [code = 57246-1] Goal Plan of Care Note [code = 58454-2] Goal Plan of Care Note [code = 38179-9] Goal Plan of Care Note [code = 78590-6] Goal Plan of Care Note [code = 26651-8] Goal Plan of Care Note [code = 60976-7] Goal Plan of Care Note [code = 94751-4] Goal Plan of Care Note [code = 18451-5] Goal Plan of Care Note [code = 88305-4] Goal Plan of Care Note [code = 25873-3] Goal Plan of Care Note [code = 71415-0] Goal Plan of Care Note [code = 50722-7] Goal Plan of Care Note [code = 22064-7] Goal Plan of Care Note [code = 88519-9] Goal Plan of Care Note [code = 82637-0] Goal Plan of Care Note [code = 02347-8] Goal Plan of Care Note [code = 73261-6] Goal Plan of Care Note [code = 32062-0] Goal Plan of Care Note [code = 38901-2] Goal Plan of Care Note [code = 03519-4] Goal Plan of Care Note [code = 38735-5] Goal Plan of Care Note [code = 44904-6] Goal Plan of Care Note [code = 98122-8] Goal Plan of Care Note [code = 06240-0] Goal Plan of Care Note [code = 16239-7] Goal Plan of Care Note [code = 34967-9] Goal Plan of Care Note [code = 78081-2] Goal Plan of Care Note [code = 26625-1] Goal Plan of Care Note [code = 01389-2] Goal Plan of Care Note [code = 02962-1] Goal Plan of Care Note [code = 76096-0] Goal Plan of Care Note [code = 56092-0] Goal Plan of Care Note [code = 52485-4] Goal Plan of Care Note [code = 45364-9] Goal Plan of Care Note [code = 35450-1] Goal Plan of Care Note [code = 60175-7] Goal Plan of Care Note [code = 28050-4] Goal Plan of Care Note [code = 30687-1] Goal Plan of Care Note [code = 00239-1] Goal Plan of Care Note [code = 41897-0] Goal Plan of Care Note [code = 79004-1] Goal Plan of Care Note [code = 51461-9] Goal Plan of Care Note [code = 01809-9] Goal Plan of Care Note [code = 54363-9] Goal Plan of Care Note [code = 59629-9] Goal Plan of Care Note [code = 67688-8] Goal Plan of Care Note [code = 46582-6] Goal Plan of Care Note [code = 93899-2] Goal Plan of Care Note [code = 49355-2] Goal Plan of Care Note [code = 75765-3] Encounters Start End Encounter Admission Attending Care Care Encounter Source Date/Time Date/Time Type Type Clinicians Facility Department ID 2022-06-21 Outpatient [facility] [id number] [place] 16:44:30 [id number] [facility] 2023-03-31 2023-03-31 Outpatient [facility] Ismael 09:22:00 09:22:00 [id number] F Sim 2023-02-10 2023-02-10 Patient Ricki Demarco [facility] [id number] Univers 00:00:00 00:00:00 Secure Msg B. HEALTH 350.1.13.10 ity of [place] 4.2.7.2.686 Toney as TROY?BLEA [id number] Mn juarez FRANCES [address] [facility] 2023-02-04 2023-02-04 Telephone Ricki Demarco [facility] 1.2.840.114 [id number] Univers 00:00:00 00:00:00 B. MULTISPEC 350.1.13.10 ity of [place]2.[place] [id number] [facility] AND POTTER [address] [place] [address] DIABETES CLINIC 2023-02-03 2023-02-03 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 Lab, Cristóbal Mahan [facility] 1.2.840.1 14 [id number] Univers 14:15:00 14:30:00 Visit Ricki Demarco HEALTH 350.1.13.10 ity of [place] 4.2.7.2.686 Toney as TROY?BLEA [id number] Mn juarez GRANGER 353 [facility] OFFICE [facility] 2023-02-03 2023-02-03 Outpatient R RICKI DEMARCO [facility] [id number] Univers 13:00:00 14:11:41 ity of [facility] 2023-02-03 2023-02-03 [facility] 1.2.840.114 [id number] Univers 13:00:00 14:11:41 Visit B. HEALTH 350.1.13.10 it y of [place] 4.2.7.2.686 Toney as TROY?BLEA [id number] Mn juarez [address] OFFICE [facility] 2023-01-23 2023-01-23 Outpatient SFA [facility] [id number]- Ismael 17:09:50 17:09:50 [id number] F Sim 2022-12-22 2022-12-24 Inpatient UR JUNE [facility] Neurology [id number] [facility] 23:20:00 17:03:00 [facility] 2022-12-22 2022-12-24 [facility] [id number] [facility] 23:20:00 17:03:00 Encounter Francisca Alston [facility], [facility] 2022-12-22 2022-12-24 [facility] [id number] [facility] 23:20:00 17:03:00 Encounter Francisca Alston [facility], [facility] 2022-12-23 2022-12-23 Orders [facility] [id number] 00:00:00 00:00:00 Only [facility] 2022-12-23 2022-12-[address] [facility] [id number] [facility] 00:[facility]00 00:00:00 [facility] 2022-12-23 2022-12-23 Orders [facility] [id number] 00:00:00 00:00:00 Only [facility] 2022-12-23 2022-12-[address] [facility] [id number] [facility] 00:00:00 00:00:00 [facility] 2022-11-09 2022-11-24 Gelacio Palmer NEURO 1.2.840.114 [id number] [place] 00:00:00 22:30:42 Vishnu PSYCH 350.1.13.43 [facility] .2.7.2.6869 [id number] 6457-06-15 2022-11-07 Emergency X DAVID WVDEBBIE ERT [id number] 15:45:00 20:54:00 JAYDA quick [facility] 2022-11-07 2022-11-07 Emergency David [facility] 1.2.022.623 [id number] [id number] [facility] 15:45:00 20:54:00 Jayda HEATON 350.1.13.10 i ty of [place] 4.2.7.2.686 [facility] [id number] [facility] [address] 2022-10-28 2022-10-28 Emergency [facility] [id number] Univers 14:07:00 17:10:00 JAKE ity of [facility] 2022-10-28 2022-10-28 Emergency [facility] 1.2.583.870 [id number] Univers 14:07:00 17:10:00 Jake HEATON 350.1.13.10 i ty of [place] 4.2.7.2.686 [facility] [id number] [facility] [address] 2022-10-02 2022-10-17 Gelacio Palmer NEURO 1.2.840.[id number] [place] [address] 00:00:00 22:32:39 Vishnu PSYCH 350.1.13.43 [facility]ENTER .2.7.2.6869 [id number] 9700-05-01 2022-09-23 Orders Doctor HELADIO 1.2.840.114 [id number] Univers 00:00:00 00:00:00 Only Unassigned, BONIFACIO 350.1.13.10 ity of [employer] [facility] 4.2.7.2.686 [facility] [id number] [facility] [address] 2022-09-13 2022-09-13 Outpatient [facility] Ismael 08:44:31 08:44:31 [id number] F [place] 2022-08-09 2022-08-09 Outpatient [facility] Ismael 11:12:06 11:12:06 [id number] F [place] 2022-08-05 2022-08-05 Telemedici Les NEURO 1.2.840.114 [id number] [place] 09:40:00 13:28:34 ne Vishnu PSYCH 350.1.13.43 [facility]ENTER .2.7.2.6869 [id number] 7245-03-02 2022-07-25 Outpatient [facility] Ismael 16:58:59 16:58:59 [id number] F [place] 2022-07-08 2022-07-08 Telemedici Palmer, NEURO 1.2.840.114 [id number] [place] 09:40:00 15:26:27 ne Vishnu PSYCH 350.1.13.43 [facility] .2.7.2.6869 [id number] 8325-01-27 2022-06-24 Emergency 1 Canelo Martinez MARSHA DONNA 1.2.84 0.114 [id number] [place] 18:23:00 16:12:00 Leigh Eastman GENERAL 350.1.13.43 [facility] .2.7.2.6869 Jazzy Franco [id number] Sugey Morales 2022-06-21 2022-06-24 Emergency Canelo Martinez MARSHA DONNA 1.2.84 0.114 [id number] [place] 18:23:00 16:12:00 Leigh Eastman GENERAL 350.1..43 [facility] .2.7.2.6869 Jazzy Franco [id number] Sugey Morales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 SylvesterNeurophysiology/Epilepsy Fellow I have personally reviewed this entire EEG and the report and I agree with the above note. John Lake M.D., FACNS, FAAN, FAESProfessor of Neurology, [facility] College of MedicineDirector, [facility] Comprehensive Epilepsy CenterTerry Pena Neurophysiology [facility] at [facility] AtlantaHEMOGLOBIN [id number] 13:52:59 Test Item Value Reference Range Interpretation Comments HEMOGLOBIN A1C 4.7 % See_Comment [Automated m essage] ELECTROPHORESIS (BEAKER) The system which (test code = 3811) generated this result transmitted ref erence range: <=5.6%. The reference range was not used to int erpret this result as normal/abnormal . "The A1c is measured using a NGSP-certified method. HbA1c value equal to or greater than 6.5% as thediagnosis cutoff for diabetes. An HbA1c value of 5.7- 6.4% indicates increased risk for diabetes (prediabetes)."Pig Lead Melter Helper ID - ADMOperator ID - ADMPOCT-GLUCOSE [id number] 13:41:44 Test Item Value Reference Range Interpretation Comments POC-GLUCOSE METER 126 mg/dL 70-110 H : TESTED A T [facility] 6720 ([employer]) (test code = PERNELLFL Akiko [facility], 1538) 88933: Pig Lead Melter Helper/Techni kai ID = [id number] for Leslie emza (DivFlt, Dear [id number] 07:45:25 Test Item Value Reference Range Interpretation Comments ETHANOL ([employer]) (test code = 400) < mg/dL <=10 Pig Lead Melter Helper ID - AAHAMIDPOCT-GLUCOSE [id number] 06:13:52 Test Item Value Reference Range Interpretation Comments POC-GLUCOSE METER 80 mg/dL 70-110 : TESTED A T [facility] 6720 ([employer]) (test code = [facility] Akiko [facility], 1538) 37095: Pig Lead Melter Helper/Techni kai ID = [id number] for Naomy Whyte HIGH SENSITIVITY TROPONIN [id number] 05:46:48 Test Item Value Reference Range Interpretation Comments HIGH SENSITIVITY TROPONIN I (test < pg/ml <=17 code = 6518166) Pig Lead Melter Helper ID - Henny CONSUMER SAFETY INSPECTOR STAT High Sensitivity Troponin-I results should be used in conjunction with other diagnostic information such as ECG, clinical observations and information, and patientsymptoms to aid in the diagnosis of [place]. LACTIC ACID, [id number] 05:37:53 Test Item Value Reference Range Interpretation Comments LACTATE BLOOD VENOUS 1.00 mmol/L 0.50-2.00 Specime n slightly (2) ([employer]) (test hemolyzed code = 2872) Pig Lead Melter Helper ID - MARCOHIV-1 ANTIGEN WITH HIV-1/2 [id number] 02:10:47 Test Item Value Reference Range Interpretation Comments HIV-1 ANTIGEN WITH HIV 1\\T\\2 Nonreactive Nonreactive ANTIBODY (2) ([employer]) (test code = 2586) Pig Lead Melter Helper ID - ADMINT4, [id number] 01:46:41 Test Item Value Reference Range Interpretation Comments FREE T4 ([employer]) (test code = 655) 1.84 ng/dL 0.70-1.48 H Pig Lead Melter Helper ID - ADMINTSH/FREE T4 IF [id number] 01:14:47 Test Item Value Reference Range Interpretation Comments THYROID STIMULATING HORMONE 0.005 uIU/mL 0.350-4.940 L (BEAKER) (test code = 772) Pig Lead Melter Helper ID - ADMINCOMPREHENSIVE METABOLIC [id number] 01:03:19 Test Item Value Reference Range Interpretation Comments TOTAL PROTEIN 6.4 gm/dL 6.0-8.3 (BEAKER) (test code = 770) ALBUMIN (BEAKER) 3.2 [...] not as accur ate as Creatinine Christine darrell in predicting glom erular filtration rate . Estimated GFR is not appl icable for dialysis patien ts Pig Lead Melter Helper ID - ADMINLIPID [id number] 00:52:37 Test Item Value Reference Range Interpretation Comments TRIGLYCERIDES (BEAKER) (test code = 60 mg/dL 540) CHOLESTEROL (BEAKER) (test code = 107 mg/dL 631) HDL CHOLESTEROL (BEAKER) (test code 30 mg/dL = 976) LDL CHOLESTEROL CALCULATED (BEAKER) 65 mg/dL (test code = 633) Triglyceride Reference Range: Low Risk <150 Borderline 150-199 High Risk 200- 499 Very High Risk >=500Cholesterol Reference Range: Low Risk <200 Borderline 200-239 High Risk >240HDL Cholesterol Reference Range: Low Risk >=60 High Risk <40LDL Cholesterol Reference Range: Optimal <100 Near Optimal 100-129 Borderline 130-159 High 160-189 Very High >=190 Pig Lead Melter Helper ID - [id number] 00:52:36 Test Item Value Reference Range Interpretation Comments MAGNESIUM (BEAKER) (test code = 1.9 mg/dL 1.6-2.6 627) Pig Lead Melter Helper ID - [id number] 00:52:36 Test Item Value Reference Range Interpretation Comments PHOSPHORUS (BEAKER) (test code = 3.6 mg/dL 2.3-4.7 604) Pig Lead Melter Helper ID - [id number] 00:39:57 Test Item Value Reference Range Interpretation Comments PARTIAL THROMBOPLASTIN TIME 30.1 seconds 22.5-36.0 (BEAKER) (test code = 760) PROTHROMBIN TIME/[id number] 00:39:19 Test Item Value Reference Range Interpretation Comments PROTIME (BEAKER) (test code = 14.6 seconds 11.9-14.2 H 759) INR (BEAKER) (test code = 370) 1.16 <=5.90 RECOMMENDED COUMADIN/WARFARIN INR THERAPY RANGESSTANDARD DOSE: 2.0 - 3.0 Includes: PROPHYLAXIS for venous thrombosis, systemic embolization; TREATMENT for venous thrombosis and/or pulmonary embolus.HIGH RISK: Target INR is 2.5-3.5 for patients with mechanical heart valves.CALCIUM, [id number] 00:34:23 Test Item Value Reference Range Interpretation Comments CALCIUM IONIZED (BEAKER) (test 1.10 mmol/L 1.12-1.27 L code = 698) PH, BLOOD (BEAKER) (test code = 7.43 1810) CBC W/PLT COUNT & AUTO [id number] 00:28:17 Test Item Value Reference Range Interpretation [...] (test code = 2801) COMP. METABOLIC PANEL (41138)2022-11-07 22:06:17 Test Item Value Reference Range Interpretation Comments NA (test code = 139 mmol/L 135-145 2893496060) K (test code = 3.8 mmol/L 3.5-5.0 8972770272) CL (test code = 104 mmol/L 98-108 6980257550) CO2 TOTAL (test code = 26 mmol/L 23-31 2735549970) AGAP (test code = 9 2-16 2132009077) BUN (test code = 5 mg/dL 7-23 L 5554281154) GLUCOSE (test code = 100 mg/dL 70-110 3746260532) CREATININE (test code = 0.54 mg/dL 0.50-1.04 4964992202) TOTAL BILI (test code = 0.5 mg/dL 0.1-1.9 3211783993) CALCIUM (test code = 8.5 mg/dL 8.6-10.6 L 3722214199) T PROTEIN (test code = 6.6 g/dL 6.3-8.2 0350483881) ALBUMIN (test code = 3.5 g/dL 3.5-5.0 2919334334) ALK PHOS (test code = 77 U/L 34-122 1136308163) ALTv (test code = 14 U/L 5-35 1742-6) AST(SGOT) (test code = 15 U/L 13-40 4537962505) eGFR (test code = 123.2 mL/min/1.73m2 0899938241) JASMEET (test code = JASMEET) Association of [...] tests). Lab Interpretation Abnormal (test code = 95658-2) [facility]05:57 Test Item Value Reference Range Interpretation Comments LIPASE (test code = 9691167928) 21 U/L 0-220 Lab Interpretation (test code = Normal 07543-4) [facility]CB WITH [id number] 21:56:14 Test Item Value Reference Range Interpretation Comments WBC (test code = 8.45 See_Comment [Automated 2028-2) message] The sy stem which generated this result transmitted reference range : 4.30 - 11.10 10*3/?L. The reference range was not used to interpret this result as normal/abnormal . RBC (test code = 3.71 See_Comment L [Automated 169-3) message] The sy stem which generated this [...] (test code = 38.8 fL 39.0-49.9 L 62572-0) RDW-CV (test code = 11.7 % 12.0-15.5 L 788-0) PLT (test code = 176 See_Comment [Automated 777-3) message] The sy stem which generated this result transmitted reference range : 166 - 358 10*3/ ?L. The reference r fiona was not used to interpret this result as normal/abnormal . MPV (test code = 10.0 fL 9.5-12.9 09023-2) NRBC/100 WBC (test 0.0 See_Comment [Automat ed code = 9676701924) message] The system which generated this result transmitted reference range : 0.0 - 10.0 /100 WBCs. The refer ence range was not u sed to interpret th is result as normal/abnormal . NRBC x10^3 (test code See_Comment [Auto mated = 7224421468) message] The s ystem which generated this result transmitted reference range : 10*3/?L. The reference range was not used to interpret this result as normal/abnormal . GRAN MAT (NEUT) % 71.4 % (test code = 770-8) IMM GRAN % (test code 0.70 % = 4465026681) LYMPH % (test code = 22.8 % 736-9) MONO % (test code = 3.9 % 5905-5) EOS % (test code = 0.8 % 713-8) BASO % (test code = 0.4 % 706-2) GRAN MAT x10^3(ANC) 6.03 10*3/uL 1.88-7.09 (test code = 1529236176) IMM GRAN x10^3 (test 0.06 10*3/uL 0.00-0.06 code = 2216035019) LYMPH x10^3 (test code 1.93 10*3/uL 1.32-3.29 = 731-0) MONO x10^3 (test code 0.33 10*3/uL 0.33-0.92 = 742-7) EOS x10^3 (test code = 0.07 10*3/uL 0.03-0.39 711-2) BASO x10^3 (test code 0.03 10*3/uL 0.01-0.07 = 704-7) Lab Interpretation Abnormal (test code = 51410-4) [facility] [id number] 21:42:00 Test Item Value Reference Range Interpretation Comments POCT PREG (test code = 1605) Negative On board controls acceptable with Yes C Line (test code = 3574) POCT PREG LOT # (test code = 3575) [id number] POCT PREG TEST DATE (test 02/29/2024 code = 3576) Lab Interpretation (test code = Normal 80042-5) [facility] MET[facility]OLIC PANEL (72478)2022-10-28 20:25:41 Test Item Value Reference Range Interpretation Comments NA (test code = 136 mmol/L 135-145 7344962568) K (test code = 3.9 mmol/L 3.5-5.0 5714310960) CL (test code = 101 mmol/L 98-108 3081005653) CO2 TOTAL (test code = 27 mmol/L 23-31 7794462493) AGAP (test code = 8 2-16 5400736051) BUN (test code = 5 mg/dL 7-23 L 9886594540) GLUCOSE (test code = 98 mg/dL 70-110 2240748468) CREATININE (test code = 0.65 mg/dL 0.50-1.04 8331593165) TOTAL BILI (test code = 0.5 mg/dL 0.1-1.0 4137973505) CALCIUM (test code = 8.9 mg/dL 8.6-10.6 3472241063) T PROTEIN (test code = 7.2 g/dL 6.3-8.2 2981414277) ALBUMIN (test code = 3.9 g/dL 3.5-5.0 1802514126) ALK PHOS (test code = 81 U/L 34-122 4887553340) ALTv (test code = 14 U/L 5-35 2-6) AST(SGOT) (test code = 28 U/L 13-40 5823020863) eGFR (test code = 99.5 mL/min/1.73m2 2074182265) JASMEET (test code = JASMEET) Association of [...] tests). Lab Interpretation Abnormal (test code = 50730-0) [facility] 20:14:18 Test Item Value Reference Range Interpretation Comments LIPASE (test code = 1300419506) 28 U/L 0-220 Lab Interpretation (test code = Normal 03350-0) [facility] WITH [id number] 19:54:37 Test Item Value Reference Range Interpretation Comments WBC (test code = 10.97 See_Comment [Automated 6690-2) message] The sy stem which generated this [...] RDW-SD (test code = 40.3 fL 39.0-49.9 06250-8) RDW-CV (test code = 12.0 % 12.0-15.5 788-0) PLT (test code = 188 See_Comment [Automated 777-3) message] The sy stem which generated this result transmitted reference range : 166 - 358 10*3/ ?L. The reference r fiona was not used to interpret this result as normal/abnormal . MPV (test code = 10.1 fL 9.5-12.9 56388-3) NRBC/100 WBC (test 0.0 See_Comment [Automat ed code = 1505900737) message] The system which generated this result transmitted reference range : 0.0 - 10.0 /100 WBCs. The refer ence range was not u sed to interpret th is result as normal/abnormal . NRBC x10^3 (test code See_Comment [Auto mated = 1968694549) message] The s ystem which generated this result transmitted reference range : 10*3/?L. The reference range was not used to interpret this result as normal/abnormal . GRAN MAT (NEUT) % 73.4 % (test code = 770-8) IMM GRAN % (test code 0.50 % = 4354071086) LYMPH % (test code = 20.9 % 736-9) MONO % (test code = 4.3 % 5905-5) EOS % (test code = 0.5 % 713-8) BASO % (test code = 0.4 % 706-2) GRAN MAT x10^3(ANC) 8.06 10*3/uL 1.88-7.09 H (test code = 6064368684) IMM GRAN x10^3 (test 0.05 10*3/uL 0.00-0.06 code = 5807873086) LYMPH x10^3 (test code 2.29 10*3/uL 1.32-3.29 = 731-0) MONO x10^3 (test code 0.47 10*3/uL 0.33-0.92 = 742-7) EOS x10^3 (test code = 0.06 10*3/uL 0.03-0.39 711-2) BASO x10^3 (test code 0.04 10*3/uL 0.01-0.07 = 704-7) Lab Interpretation Abnormal (test code = 51752-9) [facility] HospitalLactic Acid Whole [id number] 19:45:31 Test Item Value Reference Range Interpretation Comments LACTIC ACID (test code = 0.85 mmol/L 0.50-2.20 0655053896) Lab Interpretation (test code = Normal 73154-6) [facility], THIRD [id number] 08:59:32 Test Item Value Reference Range Interpretation Comments TSH, THIRD 51.900 UIU/ML 0.400-4.100 H [facility] has GENERATION (test important p athology code = 2821) staff changes effective 07/24. New patholo gy staff will prov norman uninterrupted, excellent patie nt care and clinic al consultation. S ee URL: [email or web address]. UNLE SS OTHERWISE INDIC ATED, ALL TESTING PER FORMED AT [facility], [place]. [address] [facility] [place] [address] FOR[facility]LY [facility] DIRECTOR: Almas FERRARI LILIANE NUMBER [id number] [facility] ACCREDITATION N O. [id number] COMPREHENSIVE METABOLIC [id number] 08:36:54 Test Item Value Reference Range Interpretation Comments GLUCOSE (test code = 82 MG/DL 70-99 2216) BUN (test code = 10 MG/DL 6-20 2207) CREATININE (test 0.98 MG/DL 0.60-1.30 code = 2214) eGFR (2020 CKD-EPI) 73 ML/MIN/1.73 >60 (test code = 81762) CALC BUN/CREAT (test 10 RATIO 6-28 code = 2235) SODIUM (test code = 139 MEQ/L 871-659 6464) POTASSIUM (test code 4.0 MEQ/L 3.5-5.4 = 2227) CHLORIDE (test code 102 MEQ/L 95-107 = 2214) CARBON DIOXIDE (test 27 MEQ/L 19-31 code = 2206) CALCIUM (test code = 8.6 MG/DL 8.5-10.5 2208) PROTEIN, TOTAL (test 6.6 G/DL 6.1-8.3 code = 222) ALBUMIN (test code = 3.6 G/DL 3.5-5.2 [...] code = 12 U/L 5-40 2218) LIPID [id number] 08:36:54 Test Item Value Reference Range Interpretation [...] MOREINFORMATION , SEE CLIENT ANNOUNCE MENT AT [email or web address] RISK RATIO LDL/HDL 0.92 RATIO <3.22 (test code = 2238) HEMOGLOBIN [id number] 06:06:42 Test Item Value Reference Range Interpretation Comments HEMOGLOBIN A1c (test code = 36989) 5.3 % 4.2-5.6 CBC W/AUTO DIFF WITH [id number] 04:19:18 Test Item Value Reference Range Interpretation [...] RBCS 0.00 K/UL 0.00-0.11 (test code = 44419) 12 Lead [id number] 06:51:5812 LEAD EKG FOR [facility] Test Date: 8421-18-49Tic Name: DESTINEE NOLAN Department: 5520Patient ID: [id number] Room: Gender: F 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: [id number]: 1980 Requested By: SUGEY MORALES Order Number: [id number] Reading MD: Ladonna Forman MeasurementsIntervals [place] Rate: 58 P: 53PR: 138 QRS: 63QRSD: 89 T: 22QT: 431 QTc: 429 Interpretive StatementsSINUS BRADYCARDIANONSPECIFIC T-WAVE ABNORMALITYElectronically Signed On 06-22-2022 12:16:46 SENIOR PRINCIPAL SOFTWARE ENGINEER by Ladonna [facility] HospitalGloboforce [id number] Lead EKG 2022-06-22 06:51:5812 LEAD EKG FOR [facility] Test Date: 9490-45-16Luu Name: DESTINEE NOLAN Department: 5520Patient ID: [id number] Room: Gender: F 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: [id number]: 1980 Requested By: SUGEY MORALES Order Number: [id number] Reading MD: Ladonna Forman MeasurementsIntervals [place] Rate: 58 P: 53PR: 138 QRS: 63QRSD: 89 T: 22QT: 431 QTc: 429 Interpretive StatementsSINUS BRADYCARDIANONSPECIFIC T-WAVE ABNORMALITYElectronically Signed On 06-22-2022 12:16:46 SENIOR PRINCIPAL SOFTWARE ENGINEER by LadonnaMedia Ingenuitysouthpointe hospitalR + B GroupSaint Joseph EastGloboforce [id number] Lead EKG 2022-06-22 06:51:5812 LEAD EKG FOR [facility] Test Date: 4181-27-40Mdu Name: DESTINEE NOLAN Department: 5520Patient ID: [id number] Room: Gender: F 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: [id number]: 1980 Requested By: PRIETO Order Number: [id number] Reading MD: Ladonna Forman MeasurementsIntervals [place] Rate: 58 P: 53PR: 138 QRS: 63QRSD: 89 T: 22QT: 431 QTc: 429 Interpretive StatementsSINUS BRADYCARDIANONSPECIFIC T-WAVE ABNORMALITYElectronically Signed On 06-22-2022 12:16:46 SENIOR PRINCIPAL SOFTWARE ENGINEER by Ladonna MedranoSMSHarris [id number] Lead EKG 2022-06-22 06:51:5812 LEAD EKG FOR [facility] Test Date: 5925-52-59Bjo Name: DESTINEE NOLAN Department: 5520Patient ID: [id number] Room: Gender: F 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: [id number]: 1980 Requested By: PRIETO Order Number: [id number] Reading MD: Ladonna Forman MeasurementsIntervals [place] Rate: 58 P: 53PR: 138 QRS: 63QRSD: 89 T: 22QT: 431 QTc: 429 Interpretive StatementsSINUS BRADYCARDIANONSPECIFIC T-WAVE ABNORMALITYElectronically Signed On 06-22-2022 12:16:46 SENIOR PRINCIPAL SOFTWARE ENGINEER by Ladonna MedranoSMSHarris [id number] Lead EKG 2022-06-22 06:51:5812 LEAD EKG FOR [facility] Test Date: 1914-54-25Qrs Name: DESTINEE NOLAN Department: 5520Patient ID: [id number] Room: Gender: F 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: [id number]: 1980 Requested By: SUGEY MORALES Order Number: [id number] Reading MD: Ladonna Forman MeasurementsIntervals [place] Rate: 58 P: 53PR: 138 QRS: 63QRSD: 89 T: 22QT: 431 QTc: 429 Interpretive StatementsSINUS BRADYCARDIANONSPECIFIC T-WAVE ABNORMALITYElectronically Signed On 06-22-2022 12:16:46 SENIOR PRINCIPAL SOFTWARE ENGINEER by Ladonna MedranoSMSHarris [id number] Lead EKG 2022-06-22 06:51:5812 LEAD EKG FOR [facility] Test Date: 3961-97-67Pdy Name: DESTINEE NOLAN Department: 5520Patient ID: [id number] Room: Gender: F 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: [id number]: 1980 Requested By: SUGEY MORALES Order Number: [id number] Reading MD: Ladonna Forman MeasurementsIntervals [place] Rate: 58 P: 53PR: 138 QRS: 63QRSD: 89 T: 22QT: 431 QTc: 429 Interpretive StatementsSINUS BRADYCARDIANONSPECIFIC T-WAVE ABNORMALITYElectronically Signed On 06-22-2022 12:16:46 SENIOR PRINCIPAL SOFTWARE ENGINEER by Ladonna MedranoSMSHarris [id number] Lead EKG 2022-06-22 06:51:5812 LEAD EKG FOR [facility] Test Date: 6893-51-90Hvt Name: DESTINEE ONLAN Department: 5520Patient ID: [id number] Room: Gender: F 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: [id number]: 1980 Requested By: SUGEY MORALES Order Number: [id number] Reading MD: Ladonna Forman MeasurementsIntervals [place] Rate: 58 P: 53PR: 138 QRS: 63QRSD: 89 T: 22QT: 431 QTc: 429 Interpretive StatementsSINUS BRADYCARDIANONSPECIFIC T-WAVE ABNORMALITYElectronically Signed On 06-22-2022 12:16:46 SENIOR PRINCIPAL SOFTWARE ENGINEER by Ladonna MedranR + B GroupSHarris [id number] Lead EKG 2022-06-22 06:51:5812 LEAD EKG FOR [facility] Test Date: 2027-66-61Clo Name: DESTINEE NOLAN Department: 5520Patient ID: [id number] Room: Gender: F 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: [id number]: 1980 Requested By: SUGEY MORALES Order Number: [id number] Reading MD: Ladonna Forman MeasurementsIntervals [place] Rate: 58 P: 53PR: 138 QRS: 63QRSD: 89 T: 22QT: 431 QTc: 429 Interpretive StatementsSINUS BRADYCARDIANONSPECIFIC T-WAVE ABNORMALITYElectronically Signed On 06-22-2022 12:16:46 SENIOR PRINCIPAL SOFTWARE ENGINEER by Ladonna MedranoSMSHarris [email or web address] Lead EKG 2022-06-22 06:51:5812 LEAD EKG FOR [facility] Test Date: 9931-78-77Qxd Name: DESTINEE NOLAN Department: 5520Patient ID: [id number] Room: Gender: F 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: [id number]: 1980 Requested By: SUGEY MORALES Order Number: [id number] Reading MD: Ladonna Forman MeasurementsIntervals [place] Rate: 58 P: 53PR: 138 QRS: 63QRSD: 89 T: 22QT: 431 QTc: 429 Interpretive StatementsSINUS BRADYCARDIANONSPECIFIC T-WAVE ABNORMALITYElectronically Signed On 06-22-2022 12:16:46 SENIOR PRINCIPAL SOFTWARE ENGINEER by Ladonna MedranR + B Grouparris [id number] Lead EKG 2022-06-22 06:51:5812 LEAD EKG FOR [facility] Test Date: 9966-33-59Xfa Name: DESTINEE NOLAN Department: 5520Patient ID: [id number] Room: Gender: F 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: [id number]: 1980 Requested By: SUGEY MORALES Order Number: [id number] Reading MD: Ladonna Forman MeasurementsIntervals [place] Rate: 58 P: 53PR: 138 QRS: 63QRSD: 89 T: 22QT: 431 QTc: 429 Interpretive StatementsSINUS BRADYCARDIANONSPECIFIC T-WAVE ABNORMALITYElectronically Signed On 06-22-2022 12:16:46 SENIOR PRINCIPAL SOFTWARE ENGINEER by Ladonna MedranSouthwood Psychiatric Hospitalarris Ducywi16 Lead EKG 2022-06-22 06:51:5812 LEAD EKG FOR [facility] Test Date: 2407-46-40Oho Name: DESTINEE NOLAN Department: 5520Patient ID: [id number] Room: Gender: F 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: [id number]: 1980 Requested By: SUGEY MORALES Order Number: [id number] Reading MD: Ladonna Forman MeasurementsIntervals [place] Rate: 58 P: 53PR: 138 QRS: 63QRSD: 89 T: 22QT: 431 QTc: 429 Interpretive StatementsSINUS BRADYCARDIANONSPECIFIC T-WAVE ABNORMALITYElectronically Signed On 06-22-2022 12:16:46 SENIOR PRINCIPAL SOFTWARE ENGINEER by Ladonna MedranoSMSHarris [id number] Lead EKG 2022-06-22 06:51:5812 LEAD EKG FOR [facility] Test Date: 8483-15-64Yql Name: DESTINEE NOLAN Department: 5520Patient ID: [id number] Room: Gender: F 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: [id number]: 1980 Requested By: PRIETO Order Number: [id number] Reading MD: Ladonna Forman MeasurementsIntervals [place] Rate: 58 P: 53PR: 138 QRS: 63QRSD: 89 T: 22QT: 431 QTc: 429 Interpretive StatementsSINUS BRADYCARDIANONSPECIFIC T-WAVE ABNORMALITYElectronically Signed On 06-22-2022 12:16:46 SENIOR PRINCIPAL SOFTWARE ENGINEER by Ladonna [facility] [place] [address] Lead EKG 2022-06-22 06:51:5812 LEAD EKG FOR [facility] Test Date: 5771-11-29Epm Name: DESTINEE NOLAN Department: 5520Patient ID: [id number] Room: Gender: F 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: [id number]: 1980 Requested By: SUGEY MORALES Order Number: [id number] Reading MD: Ladonna Forman MeasurementsIntervals [place] Rate: 58 P: 53PR: 138 QRS: 63QRSD: 89 T: 22QT: 431 QTc: 429 Interpretive StatementsSINUS BRADYCARDIANONSPECIFIC T-WAVE ABNORMALITYElectronically Signed On 06-22-2022 12:16:46 SENIOR PRINCIPAL SOFTWARE ENGINEER by Ladonna [place] [address] Lead EKG 2022-06-22 06:51:5812 LEAD EKG FOR [facility] Test Date: 8136-78-13Gxi Name: DESTINEE NOLAN Department: 5520Patient ID: [id number] Room: Gender: F 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: [id number]: 1980 Requested By: SUGEY MORALES Order Number: [id number] Reading MD: Ladonna Forman MeasurementsIntervals [place] Rate: 58 P: 53PR: 138 QRS: 63QRSD: 89 T: 22QT: 431 QTc: 429 Interpretive StatementsSINUS BRADYCARDIANONSPECIFIC T-WAVE ABNORMALITYElectronically Signed On 06-22-2022 12:16:46 SENIOR PRINCIPAL SOFTWARE ENGINEER by Ladonna [place] [address] Lead EKG 2022-06-22 06:51:5812 LEAD EKG FOR [facility] Test Date: 3523-99-14Bal Name: DESTINEE NOLAN Department: 5520Patient ID: [id number] Room: Gender: F 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: [id number]: 1980 Requested By: SUGEY MORALES Order Number: [id number] Reading MD: Ladonna Forman MeasurementsIntervals [place] Rate: 58 P: 53PR: 138 QRS: 63QRSD: 89 T: 22QT: 431 QTc: 429 Interpretive StatementsSINUS BRADYCARDIANONSPECIFIC T-WAVE ABNORMALITYElectronically Signed On 06-22-2022 12:16:46 SENIOR PRINCIPAL SOFTWARE ENGINEER by LadonnaSt. Anthony Summit Medical CenterGloboforce Qnigpt13 Lead EKG 2022-06-22 06:51:5812 LEAD EKG FOR [facility] Test Date: 1203-49-10Iku Name: DESTINEE NOLAN Department: 5520Patient ID: [id number] Room: Gender: F 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: [id number]: 1980 Requested By: PRIETO Order Number: [id number] Reading MD: Ladonna Forman MeasurementsIntervals [place] Rate: 58 P: 53PR: 138 QRS: 63QRSD: 89 T: 22QT: 431 QTc: 429 Interpretive StatementsSINUS BRADYCARDIANONSPECIFIC T-WAVE ABNORMALITYElectronically Signed On 06-22-2022 12:16:46 SENIOR PRINCIPAL SOFTWARE ENGINEER by Ladonna [facility]12 Lead EKG 2022-06-22 06:51:5812 LEAD EKG FOR [facility] Test Date: 7166-13-77Psm Name: DESTINEE NOLAN Department: 5520Patient ID: [id number] Room: Gender: F 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: [id number]: 1980 Requested By: PRIETO Order Number: [id number] Reading MD: Ladonna Forman MeasurementsIntervals [place] Rate: 58 P: 53PR: 138 QRS: 63QRSD: 89 T: 22QT: 431 QTc: 429 Interpretive StatementsSINUS BRADYCARDIANONSPECIFIC T-WAVE ABNORMALITYElectronically Signed On 06-22-2022 12:16:46 SENIOR PRINCIPAL SOFTWARE ENGINEER by Ladonna MedranoSMSHarris [id number] Lead EKG 2022-06-22 06:51:5812 LEAD EKG FOR [facility] Test Date: 0021-01-83Pov Name: DESTINEE NOLAN Department: 5520Patient ID: [id number] Room: Gender: F 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: [id number]: 1980 Requested By: PRIETO Order Number: [id number] Reading MD: Ladonna Forman MeasurementsIntervals [place] Rate: 58 P: 53PR: 138 QRS: 63QRSD: 89 T: 22QT: 431 QTc: 429 Interpretive StatementsSINUS BRADYCARDIANONSPECIFIC T-WAVE ABNORMALITYElectronically Signed On 06-22-2022 12:16:46 SENIOR PRINCIPAL SOFTWARE ENGINEER by Ladonna MedranSouthwood Psychiatric Hospitalarris Ingyyw77 Lead EKG 2022-06-22 06:51:5812 LEAD EKG FOR [facility] Test Date: 9132-82-08Obv Name: DESTINEE NOLAN Department: 5520Patient ID: [id number] Room: Gender: F 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: [id number]: 1980 Requested By: PRIETO Order Number: [id number] Reading MD: Ladonna Forman MeasurementsIntervals [place] Rate: 58 P: 53PR: 138 QRS: 63QRSD: 89 T: 22QT: 431 QTc: 429 Interpretive StatementsSINUS BRADYCARDIANONSPECIFIC T-WAVE ABNORMALITYElectronically Signed On 06-22-2022 12:16:46 SENIOR PRINCIPAL SOFTWARE ENGINEER by Ladonna MedranSouthwood Psychiatric Hospitalarris [id number] Lead EKG 2022-06-22 06:51:5812 LEAD EKG FOR [facility] Test Date: 9008-73-23Yax Name: DESTINEE NOLAN Department: 5520Patient ID: [id number] Room: Gender: F 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: [id number]: 1980 Requested By: PRIETO Order Number: [id number] Reading MD: Ladonna Forman MeasurementsIntervals [place] Rate: 58 P: 53PR: 138 QRS: 63QRSD: 89 T: 22QT: 431 QTc: 429 Interpretive StatementsSINUS BRADYCARDIANONSPECIFIC T-WAVE ABNORMALITYElectronically Signed On 06-22-2022 12:16:46 SENIOR PRINCIPAL SOFTWARE ENGINEER by Ladonna MedranSouthwood Psychiatric Hospitalarris [id number] Lead EKG 2022-06-22 06:51:5812 LEAD EKG FOR [facility] Test Date: 9504-34-89Upa Name: DESTINEE NOLAN Department: 5520Patient ID: [id number] Room: Gender: F 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: [id number]: 1980 Requested By: SUGEY MORALES Order Number: [id number] Reading MD: Ladonna Forman MeasurementsIntervals [place] Rate: 58 P: 53PR: 138 QRS: 63QRSD: 89 T: 22QT: 431 QTc: 429 Interpretive StatementsSINUS BRADYCARDIANONSPECIFIC T-WAVE ABNORMALITYElectronically Signed On 06-22-2022 12:16:46 SENIOR PRINCIPAL SOFTWARE ENGINEER by Ladonna [facility]ranSouth[facility] Psychiatric Hospitalarris Hjmkww71 Lead EKG 2022-06-22 06:51:5812 LEAD EKG FOR [facility] Test Date: 8889-80-45Ujr Name: DESTINEE NOLAN Department: 5520Patient ID: [id number] Room: Gender: F 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: [id number]: 1980 Requested By: SUGEY MORALES Order Number: [id number] Reading MD: Ladonna Forman MeasurementsIntervals [place] Rate: 58 P: 53PR: 138 QRS: 63QRSD: 89 T: 22QT: 431 QTc: 429 Interpretive StatementsSINUS BRADYCARDIANONSPECIFIC T-WAVE ABNORMALITYElectronically Signed On 06-22-2022 12:16:46 SENIOR PRINCIPAL SOFTWARE ENGINEER by Ladonna [facility]ranSouth[facility] Psychiatric Hospitalarris [id number] Lead EKG 2022-06-22 06:51:5812 LEAD EKG FOR [facility] Test Date: 7688-68-67Hmd Name: DESTINEE NOLAN Department: 5520Patient ID: [id number] Room: Gender: F 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: [id number]: 1980 Requested By: SUGEY MORALES Order Number: [id number] Reading MD: Ladonna Forman MeasurementsIntervals [place] Rate: 58 P: 53PR: 138 QRS: 63QRSD: 89 T: 22QT: 431 QTc: 429 Interpretive StatementsSINUS BRADYCARDIANONSPECIFIC T-WAVE ABNORMALITYElectronically Signed On 06-22-2022 12:16:46 SENIOR PRINCIPAL SOFTWARE ENGINEER by LadonnaJetpacSolix BioSystems, Inc.12 Lead EKG 2022-06-22 06:51:5812 LEAD EKG FOR [facility] Test Date: 9490-56-66Bjg Name: DESTINEE NOLAN Department: 5520Patient ID: [id number] Room: Gender: F 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: [id number]: 1980 Requested By: SUGEY MORALES Order Number: [id number] Reading MD: Ladonna Forman MeasurementsIntervals [place] Rate: 58 P: 53PR: 138 QRS: 63QRSD: 89 T: 22QT: 431 QTc: 429 Interpretive StatementsSINUS BRADYCARDIANONSPECIFIC T-WAVE ABNORMALITYElectronically Signed On 06-22-2022 12:16:46 SENIOR PRINCIPAL SOFTWARE ENGINEER by [employer]12 Lead EKG 2022-06-22 06:51:5812 LEAD EKG FOR [facility] Test Date: 8122-41-23Jev Name: DESTINEE NOLAN Department: 5520Patient ID: [id number] Room: Gender: F 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: [id number]: 1980 Requested By: SUGEY MORALES Order Number: [id number] Reading MD: Ladonna Forman MeasurementsIntervals [place] Rate: 58 P: 53PR: 138 QRS: 63QRSD: 89 T: 22QT: 431 QTc: 429 Interpretive StatementsSINUS BRADYCARDIANONSPECIFIC T-WAVE ABNORMALITYElectronically Signed On 06-22-2022 12:16:46 SENIOR PRINCIPAL SOFTWARE ENGINEER by FlowonixSaint [facility] EastGloboforce [facility] DaytonCoronavirus, CoVID- 19, [id number] 05:23:56 Test Item Value Reference Interpretation Comments Range COVID-19 Not Detected Not Detected INTERPRETATION: (SARS-COV-2) (test No detect able code = 00221-8) levels of SARS-CoV-2 Coronavirus (COVID-19) were present [...] and its performance characteristics determined by the [facility] molecular diagnostic Laboratory and is acceptable for patient testing. It has been approved for patient testing by the FDA under the Emergency Use Authorization pathway. This laboratory is certified under federal CLIA regulations to perform this type of high complexity testing. Lab Interpretation Normal (test code = 23872-6) [facility]Coronavirus, CoVID-19, [id number] 05:23:56 Test Item Value Reference Interpretation Comments Range COVID-19 Not Detected Not Detected INTERPRETATION: (SARS-COV-2) (test No detect able code = 91721-7) levels of SARS-CoV-2 Coronavirus (COVID-19) were present [...] and its performance characteristics determined by the [facility] molecular diagnostic Laboratory and is acceptable for patient testing. It has been approved for patient testing by the FDA under the Emergency Use Authorization pathway. This laboratory is certified under federal CLIA regulations to perform this type of high complexity testing. Lab Interpretation Normal (test code = 50317-4) [facility] HealthCoronavirus, CoVID-19, [id number] 05:23:56 Test Item Value Reference Interpretation Comments Range COVID-19 Not Detected Not Detected INTERPRETATION: (SARS-COV-2) (test No detect able code = 48036-6) levels of SARS-CoV-2 Coronavirus (COVID-19) were present [...] JASMEET (test code = COMMENT: This JASMEET) Cep[employer] Xpert Xpress SARS-CoV-2 real-time PCR test was developed, and its performance characteristics determined by the [facility] molecular diagnostic Laboratory and is acceptable for patient testing. It has been approved for patient testing by the FDA under the Emergency Use Authorization pathway. This laboratory is certified under federal CLIA regulations to perform this type of high complexity testing. Lab Interpretation Normal (test code = 33198-2) [facility] HealthCoronavirus, CoVID-19, [id number] 05:23:56 Test Item Value Reference Interpretation Comments Range COVID-19 Not Detected Not Detected INTERPRETATION: (SARS-COV-2) (test No detect able code = 33873-9) levels of SARS-CoV-2 Coronavirus (COVID-19) were present [...] JASMEET (test code = COMMENT: This JASMEET) Cep[employer] Xpert Xpress SARS-CoV-2 real-time PCR test was developed, and its performance characteristics determined by the [facility] molecular diagnostic Laboratory and is acceptable for patient testing. It has been approved for patient testing by the FDA under the Emergency Use Authorization pathway. This laboratory is certified under federal CLIA regulations to perform this type of high complexity testing. Lab Interpretation Normal (test code = 94733-8) [facility] Pierceronavirus, CoVID-19, [id number] 05:23:56 Test Item Value Reference Interpretation Comments Range COVID-19 Not Detected Not Detected INTERPRETATION: (SARS-COV-2) (test No detect able code = 92225-5) levels of SARS-CoV-2 Coronavirus (COVID-19) were present [...] JASMEET (test code = COMMENT: This JASMEET) [employer] Xpert Xpress SARS-CoV-2 real-time PCR test was developed, and its performance characteristics determined by the [facility] molecular diagnostic Laboratory and is acceptable for patient testing. It has been approved for patient testing by the FDA under the Emergency Use Authorization pathway. This laboratory is certified under federal CLIA regulations to perform this type of high complexity testing. Lab Interpretation Normal (test code = 70129-7) [facility] Pierceronavirus, CoVID-19, [id number] 05:23:56 Test Item Value Reference Interpretation Comments Range COVID-19 Not Detected Not Detected INTERPRETATION: (SARS-COV-2) (test No detect able code = 66997-3) levels of SARS-CoV-2 Coronavirus (COVID-19) were present [...] and its performance characteristics determined by the [facility] molecular diagnostic Laboratory and is acceptable for patient testing. It has been approved for patient testing by the FDA under the Emergency Use Authorization pathway. This laboratory is certified under federal CLIA regulations to perform this type of high complexity testing. Lab Interpretation Normal (test code = 89433-8) [facility] HealthCor[facility]avirus, CoVID-19, [id number] 05:23:56 Test Item Value Reference Interpretation Comments Range COVID-19 Not Detected Not Detected INTERPRETATION: (SARS-COV-2) (test No detect able code = 73813-4) levels of SARS-CoV-2 Coronavirus (COVID-19) were present [...] and its performance characteristics determined by the [facility] molecular diagnostic Laboratory and is acceptable for patient testing. It has been approved for patient testing by the FDA under the Emergency Use Authorization pathway. This laboratory is certified under federal CLIA regulations to perform this type of high complexity testing. Lab Interpretation Normal (test code = 42139-6) [facility] HealthCoronavirus, CoVID-19, [id number] 05:23:56 Test Item Value Reference Interpretation Comments Range COVID-19 Not Detected Not Detected INTERPRETATION: (SARS-COV-2) (test No detect able code = 93381-7) levels of SARS-CoV-2 Coronavirus (COVID-19) were present [...] and its performance characteristics determined by the [facility] molecular diagnostic Laboratory and is acceptable for patient testing. It has been approved for patient testing by the FDA under the Emergency Use Authorization pathway. This laboratory is certified under federal CLIA regulations to perform this type of high complexity testing. Lab Interpretation Normal (test code = 62767-7) [facility] HealthCoronavirus, CoVID-19, [id number] 05:23:56 Test Item Value Reference Interpretation Comments Range COVID-19 Not Detected Not Detected INTERPRETATION: (SARS-COV-2) (test No detect able code = 64949-8) levels of SARS-CoV-2 Coronavirus (COVID-19) were present [...] JASMEET (test code = COMMENT: This JASMEET) CepIdentiv Xpert Xpress SARS-CoV-2 real-time PCR test was developed, and its performance characteristics determined by the [facility] molecular diagnostic Laboratory and is acceptable for patient testing. It has been approved for patient testing by the FDA under the Emergency Use Authorization pathway. This laboratory is certified under federal CLIA regulations to perform this type of high complexity testing. Lab Interpretation Normal (test code = 02080-5) [facility]ologicsCoronavirus, CoVID-19, [id number] 05:23:56 Test Item Value Reference Interpretation Comments Range COVID-19 Not Detected Not Detected INTERPRETATION: (SARS-COV-2) (test No detect able code = 24972-7) levels of SARS-CoV-2 Coronavirus (COVID-19) were present [...] JASMEET (test code = COMMENT: This JASMEET) CepIdentiv Xpert Xpress SARS-CoV-2 real-time PCR test was developed, and its performance characteristics determined by the [facility] molecular diagnostic Laboratory and is acceptable for patient testing. It has been approved for patient testing by the FDA under the Emergency Use Authorization pathway. This laboratory is certified under federal CLIA regulations to perform this type of high complexity testing. Lab Interpretation Normal (test code = 64677-5) [facility] Pierceronavirus, CoVID-19, [id number] 05:23:56 Test Item Value Reference Interpretation Comments Range COVID-19 Not Detected Not Detected INTERPRETATION: (SARS-COV-2) (test No detect able code = 91739-3) levels of SARS-CoV-2 Coronavirus (COVID-19) were present [...] and its performance characteristics determined by the [facility] molecular diagnostic Laboratory and is acceptable for patient testing. It has been approved for patient testing by the FDA under the Emergency Use Authorization pathway. This laboratory is certified under federal CLIA regulations to perform this type of high complexity testing. Lab Interpretation Normal (test code = 57114-9) [facility] Pierceronavirus, CoVID-19, [id number] 05:23:56 Test Item Value Reference Interpretation Comments Range COVID-19 Not Detected Not Detected INTERPRETATION: (SARS-COV-2) (test No detect able code = 92727-3) levels of SARS-CoV-2 Coronavirus (COVID-19) were present [...] JASMEET (test code = COMMENT: This JASMEET) Cep[employer] Xpert Xpress SARS-CoV-2 real-time PCR test was developed, and its performance characteristics determined by the [facility] molecular diagnostic Laboratory and is acceptable for patient testing. It has been approved for patient testing by the FDA under the Emergency Use Authorization pathway. This laboratory is certified under federal CLIA regulations to perform this type of high complexity testing. Lab Interpretation Normal (test code = 74993-9) [facility] Pierceronavirus, CoVID-19, [id number] 05:23:56 Test Item Value Reference Interpretation Comments Range COVID-19 Not Detected Not Detected INTERPRETATION: (SARS-COV-2) (test No detect able code = 43190-2) levels of SARS-CoV-2 Coronavirus (COVID-19) were present [...] and its performance characteristics determined by the [facility] molecular diagnostic Laboratory and is acceptable for patient testing. It has been approved for patient testing by the FDA under the Emergency Use Authorization pathway. This laboratory is certified under federal CLIA regulations to perform this type of high complexity testing. Lab Interpretation Normal (test code = 27681-6) [facility] HealthCoronavirus, CoVID-19, [id number] 05:23:56 Test Item Value Reference Interpretation Comments Range COVID-19 Not Detected Not Detected INTERPRETATION: (SARS-COV-2) (test No detect able code = 50428-7) levels of SARS-CoV-2 Coronavirus (COVID-19) were present [...] and its performance characteristics determined by the [facility] molecular diagnostic Laboratory and is acceptable for patient testing. It has been approved for patient testing by the FDA under the Emergency Use Authorization pathway. This laboratory is certified under federal CLIA regulations to perform this type of high complexity testing. Lab Interpretation Normal (test code = 23605-8) [facility] HealthCoronavirus, CoVID-19, [id number] 05:23:56 Test Item Value Reference Interpretation Comments Range COVID-19 Not Detected Not Detected INTERPRETATION: (SARS-COV-2) (test No detect able code = 87319-5) levels of SARS-CoV-2 Coronavirus (COVID-19) were present [...] JASMEET (test code = COMMENT: This JASMEET) CepIdent[employer] Xpert Xpress SARS-CoV-2 real-time PCR test was developed, and its performance characteristics determined by the [facility] molecular diagnostic Laboratory and is acceptable for patient testing. It has been approved for patient testing by the FDA under the Emergency Use Authorization pathway. This laboratory is certified under federal CLIA regulations to perform this type of high complexity testing. Lab Interpretation Normal (test code = 26569-0) [facility], CoVID-19, [id number] 05:23:56 Test Item Value Reference Interpretation Comments Range COVID-19 Not Detected Not Detected INTERPRETATION: (SARS-COV-2) (test No detect able code = 86648-8) levels of SARS-CoV-2 Coronavirus (COVID-19) were present [...] JASMEET (test code = COMMENT: This JASMEET) [employer] Xpert Xpress SARS-CoV-2 real-time PCR test was developed, and its performance characteristics determined by the [facility] molecular diagnostic Laboratory and is acceptable for patient testing. It has been approved for patient testing by the FDA under the Emergency Use Authorization pathway. This laboratory is certified under federal CLIA regulations to perform this type of high complexity testing. Lab Interpretation Normal (test code = 21614-1) [facility] Pierceronavirus, CoVID-19, [id number] 05:23:56 Test Item Value Reference Interpretation Comments Range COVID-19 Not Detected Not Detected INTERPRETATION: (SARS-COV-2) (test No detect able code = 95843-5) levels of SARS-CoV-2 Coronavirus (COVID-19) were present [...] JASMEET (test code = COMMENT: This JASMEET) [employer] Xpert Xpress SARS-CoV-2 real-time PCR test was developed, and its performance characteristics determined by the [facility] molecular diagnostic Laboratory and is acceptable for patient testing. It has been approved for patient testing by the FDA under the Emergency Use Authorization pathway. This laboratory is certified under federal CLIA regulations to perform this type of high complexity testing. Lab Interpretation Normal (test code = 56790-4) [facility] Pierceronavirus, CoVID-19, [id number] 05:23:56 Test Item Value Reference Interpretation Comments Range COVID-19 Not Detected Not Detected INTERPRETATION: (SARS-COV-2) (test No detect able code = 43530-1) levels of SARS-CoV-2 Coronavirus (COVID-19) were present [...] and its performance characteristics determined by the [facility] molecular diagnostic Laboratory and is acceptable for patient testing. It has been approved for patient testing by the FDA under the Emergency Use Authorization pathway. This laboratory is certified under federal CLIA regulations to perform this type of high complexity testing. Lab Interpretation Normal (test code = 78382-8) [facility], CoVID-19, [id number] 05:23:56 Test Item Value Reference Interpretation Comments Range COVID-19 Not Detected Not Detected INTERPRETATION: (SARS-COV-2) (test No detect able code = 89263-8) levels of SARS-CoV-2 Coronavirus (COVID-19) were present [...] and its performance characteristics determined by the [facility] molecular diagnostic Laboratory and is acceptable for patient testing. It has been approved for patient testing by the FDA under the Emergency Use Authorization pathway. This laboratory is certified under federal CLIA regulations to perform this type of high complexity testing. Lab Interpretation Normal (test code = 30400-9) [facility] HealthCoronavirus, CoVID-19, [id number] 05:23:56 Test Item Value Reference Interpretation Comments Range COVID-19 Not Detected Not Detected INTERPRETATION: (SARS-COV-2) (test No detect able code = 52667-6) levels of SARS-CoV-2 Coronavirus (COVID-19) were present [...] JASMEET (test code = COMMENT: This JASMEET) CepheSnapette Xpert Xpress SARS-CoV-2 real-time PCR test was developed, and its performance characteristics determined by the [facility] molecular diagnostic Laboratory and is acceptable for patient testing. It has been approved for patient testing by the FDA under the Emergency Use Authorization pathway. This laboratory is certified under federal CLIA regulations to perform this type of high complexity testing. Lab Interpretation Normal (test code = 35078-4) [facility] HealthCoronavirus, CoVID-19, [id number] 05:23:56 Test Item Value Reference Interpretation Comments Range COVID-19 Not Detected Not Detected INTERPRETATION: (SARS-COV-2) (test No detect able code = 01208-9) levels of SARS-CoV-2 Coronavirus (COVID-19) were present [...] JASMEET (test code = COMMENT: This JASMEET) CepheSnapette Xpert Xpress SARS-CoV-2 real-time PCR test was developed, and its performance characteristics determined by the [facility] molecular diagnostic Laboratory and is acceptable for patient testing. It has been approved for patient testing by the FDA under the Emergency Use Authorization pathway. This laboratory is certified under federal CLIA regulations to perform this type of high complexity testing. Lab Interpretation Normal (test code = 35113-1) [facility] HealthCoronavirus, CoVID-19, [id number] 05:23:56 Test Item Value Reference Interpretation Comments Range COVID-19 Not Detected Not Detected INTERPRETATION: (SARS-COV-2) (test No detect able code = 52762-3) levels of SARS-CoV-2 Coronavirus (COVID-19) were present [...] JASMEET (test code = COMMENT: This JASMEET) CepIdentiv Xpert Xpress SARS-CoV-2 real-time PCR test was developed, and its performance characteristics determined by the [facility] molecular diagnostic Laboratory and is acceptable for patient testing. It has been approved for patient testing by the FDA under the Emergency Use Authorization pathway. This laboratory is certified under federal CLIA regulations to perform this type of high complexity testing. Lab Interpretation Normal (test code = 72177-3) [facility] Pierceronavirus, CoVID-19, [id number] 05:23:56 Test Item Value Reference Interpretation Comments Range COVID-19 Not Detected Not Detected INTERPRETATION: (SARS-COV-2) (test No detect able code = 80622-3) levels of SARS-CoV-2 Coronavirus (COVID-19) were present [...] JASMEET (test code = COMMENT: This JASMEET) CepheSnapette Xpert Xpress SARS-CoV-2 real-time PCR test was developed, and its performance characteristics determined by the [facility] molecular diagnostic Laboratory and is acceptable for patient testing. It has been approved for patient testing by the FDA under the Emergency Use Authorization pathway. This laboratory is certified under federal CLIA regulations to perform this type of high complexity testing. Lab Interpretation Normal (test code = 77854-6) [facility]avirus, CoVID-19, [id number] 05:23:56 Test Item Value Reference Interpretation Comments Range COVID-19 Not Detected Not Detected INTERPRETATION: (SARS-COV-2) (test No detect able code = 34644-1) levels of SARS-CoV-2 Coronavirus (COVID-19) were present [...] JASMEET (test code = COMMENT: This JASMEET) CepIdentiv Xpert Xpress SARS-CoV-2 real-time PCR test was developed, and its performance characteristics determined by the [facility] molecular diagnostic Laboratory and is acceptable for patient testing. It has been approved for patient testing by the FDA under the Emergency Use Authorization pathway. This laboratory is certified under federal CLIA regulations to perform this type of high complexity testing. Lab Interpretation Normal (test code = 37897-8) [facility] HealthCoronavirus, CoVID-19, [id number] 05:23:56 Test Item Value Reference Interpretation Comments Range COVID-19 Not Detected Not Detected INTERPRETATION: (SARS-COV-2) (test No detect able code = 27404-4) levels of SARS-CoV-2 Coronavirus (COVID-19) were present [...] JASMEET (test code = COMMENT: This JASMEET) Expert Medical Navigationert Xpress SARS-CoV-2 real-time PCR test was developed, and its performance characteristics determined by the [facility] molecular diagnostic Laboratory and is acceptable for patient testing. It has been approved for patient testing by the FDA under the Emergency Use Authorization pathway. This laboratory is certified under federal CLIA regulations to perform this type of high complexity testing. Lab Interpretation Normal (test code = 54873-9) [facility] RNA Resp Ql [id number] 05:23:56 Test Item Value Reference Range Interpretation Comments Hospitalized? (test No code = 62639-7) ICU? (test code = No 80790-7) Symptomatic as defined No by CDC? (test code = 39546-6) Employed in No Healthcare? (test code = 61114-0) Resident in a No congregate care setting (including nursing homes, residential care for people with intellectual and developmental disabilities, psychiatric treatment facilities, group homes, board and care homes, homeless prison, foster care or other): (test code = 68440-1) ? (test code = No 65905-7) SARS-CoV-2 RNA Resp Ql NOT DETECTED Not Detected INTER PRETATION: No MANJIT+probe (test code = detec table levels 21213-9) of SARS-CoV-2 Coronavirus (COVID-19) were present in [...] n with SARS-CoV-2 Coronavirus (COVID-19). COMMENT: This Cepheid Xpert Xpress SARS-CoV-2 real-time PCR test was developed, and its performance characteristics determined by the [facility] molecular diagnostic Laboratory and is acceptablefor patient testing. It has been approved for patient testing by the FDA under the Emergency Use Auth orization pathway. This laboratory is certified under federal CLIA regulations to perform this type of high complexity testing.HHSTSH, THIRD GENERATION 2022-06-12 06:20:06 Test Item Value Reference Range Interpretation Comments TSH, THIRD 0.023 UIU/ML 0.400-4.100 L UNLESS OTHERWI SE GENERATION (test INDICATED, ALL TESTING code = 2821) PERFORMED [facility], [facility]. [address] [place] [address] [facility] DIRECTOR: JOVANA HAQ M.D. CLIA NUMBER [id number] CAP ACCREDITATION N O. [id number] Troponin I - Code [id number] 22:05:04 Test Item Value Reference Interpretation Comments Range TROPONIN I (test 0.001 ng/mL See_Comment [Automated code = [id number]) message] The system which generated this result [...] biotin. Lab Interpretation Normal (test code = 00320-8) [facility] [id number] 21:52:45 Test Item Value Reference Range Interpretation Comments APTT Patient (test See_Comment [Automat ed code = 3173-2) message] The system which generated this result transmitted reference range : 23 - 38 Seconds . The reference range was not used to interpr et this result as normal/abnormal . JASMEET (test code = JASMEET) The [facility] patient population mean normal value for aPTT is 30 seconds. Lab Interpretation Normal (test code = 25124-7) [facility] (NA, K, CL, CO2, Glucose, BUN, Creatinine, CA) - Code [id number] 21:52:45 Test Item Value Reference Range Interpretation Comments NA (test code = 139 mmol/L 135-145 3839490191) K (test code = 4.2 mmol/L 3.5-5.0 5609663632) CL (test code = 103 mmol/L 98-108 6876609237) CO2 TOTAL (test code = 27 mmol/L 23-31 3634969231) AGAP (test code = 2-16 8852224777) BUN (test code = 3 mg/dL 7-23 L 0305788269) GLUCOSE (test code = 99 mg/dL 70-110 4888516150) CREATININE (test code = 0.58 mg/dL 0.50-1.04 6446747699) CALCIUM (test code = 8.9 mg/dL 8.6-10.6 8061229412) eGFR (test code = mL/min/1.73m2 1919453642) JASMEET (test code = JASMEET) Association of [...] tests). Lab Interpretation Abnormal (test code = 63593-6) [facility] / [facility] - Code [id number] 21:50:26 Test Item Value Reference Range Interpretation Comments PROTIME PATIENT (test See_Comment [Auto mated message] code = 5964-2) The system [employer] generated this result transmitted ref erence range: 12.0 - 1 4.7 Seconds. The re ference range was not u sed to interpret this result as normal/abnor mal. INR (test code = 6301-6) Nor mal INR <1.1; Warfarin Therap eutic range 2.0 to 3. 0 or 2.5 to 3.5, dep ending upon the indica tions. Lab Interpretation (test Normal code = 59374-8) [facility] - Code [id number] 21:43:21 Test Item Value Reference Range Interpretation Comments WBC (test code = 6690-2) See_Comment [A utomated message] The system [email or web address] generated this result transmit justino reference range : 4.30 - 11.10 10*3/?L. The reference range was not used to interpret this result as normal/abnormal . RBC (test code = 789-8) See_Comment [Au tomated message] The system [employer] generated this result transmit justino reference range [...] 777-3) See_Comment [Au tomated message] The system [employer] generated this result transmit justino reference range : 166 - 358 10*3/?L. The reference range was not used to interpret this result as normal/abnormal . MPV (test code = 9.9 fL 9.5-12.9 13378-5) RDW-CV (test code = 11.4 % 12.0-15.5 L 788-0) RDW-SD (test code = 38.6 fL 39.0-49.9 L 53300-7) NRBC x10^3 (test code = See_Comment [Au tomated message] 0405243614) The system [email or web address] generated this result transmit justino reference range : 10*3/?L. The reference range was not used to interpret this result as normal/abnormal . NRBC/100 WBC (test code See_Comment [Au tomated message] = 1225149064) The system [employer] generated this result transmit justino reference range : 0.0 - 10.0 /100 WBC s. The reference r fiona was not used to interpret this result as normal/abnormal . IPF % (test code = 7577173787) Lab Interpretation (test Abnormal code = 74345-7) [facility] GLUCOSE (AUTOMATED)2022-05-31 21:38:39 Test Item Value Reference Range Interpretation Comments POCT GLU (test code = 8432313494) 116 mg/dL 70-110 H Lab Interpretation (test code = Abnormal 18751-6) [facility] [id number] 11:21:16SPECIMEN NUMBER: [id number] CULTURE, URINE SPECIMEN NUMBER: [id number] SPECIMEN COMMENT: URINE SOURCE: URINE REPORT STATUS: [...] MCG/ML. UNLESS OTHERWISE INDICATED, ALL TESTING PERFORMED [facility] [address] [place] [address] INDUSTRIAL MAINTENANCE TECH: JOVANA HAQ M.D. [place] NUMBER [id number] [facility]. [id number], [id number] 00:00:00 Test Item Value Reference Range Interpretation Comments CULTURE, URINE (test SPECIMEN NUMBER: code = 39084) [id number] CULTURE, [id number] 00:00:00 Test Item Value Reference Range Interpretation Comments CULTURE, URINE (test SPECIMEN NUMBER: code = 47181) [id number] CULTURE, [id number] 00:00:00 Test Item Value Reference Range Interpretation Comments CULTURE, URINE (test SPECIMEN NUMBER: code = 27490) [id number] CULTURE, [id number] 00:00:00 Test Item Value Reference Range Interpretation Comments CULTURE, URINE (test SPECIMEN NUMBER: code = 45615) [id number] TSH, THIRD [id number] 00:00:00 Test Item Value Reference Range Interpretation Comments TSH, THIRD GENERATION (test >100.000 UIU/ML code = 2821) TSH, THIRD [id number] 00:00:00 Test Item Value Reference Range Interpretation Comments TSH, THIRD GENERATION (test >100.000 UIU/ML code = 2821) TSH, THIRD [id number] 00:00:00 Test Item Value Reference Range Interpretation Comments TSH, THIRD GENERATION (test >100.000 UIU/ML code = 2821) COMPREHENSIVE METABOLIC [id number] 00:00:00 Test Item Value Reference Range Interpretation Comments GLUCOSE (test code = 2217) 91 MG/DL BUN (test code = 2208) 4 MG/DL CREATININE (test code = 2214) 1.18 MG/DL eGFR (2020 CKD-EPI) (test code 59 ML/MIN/1.73 = 25212) CALC BUN/CREAT (test code = 3 RATIO [...] code = 2219) 16 U/L COMPREHENSIVE METABOLIC [id number] 00:00:00 Test Item Value Reference Range Interpretation Comments GLUCOSE (test code = 2217) 91 MG/DL BUN (test code = 2208) 4 MG/DL CREATININE (test code = 2214) 1.18 MG/DL eGFR (2020 CKD-EPI) (test code 59 ML/MIN/1.73 = 62587) CALC BUN/CREAT (test code = 3 RATIO [...] code = 2219) 16 U/L CBC W/AUTO [id number] 00:00:00 Test Item Value Reference Range Interpretation [...] NUCLEATED RBCS (test code = 0.00 K/UL 05614) CBC W/AUTO [id number] 00:00:00 Test Item Value Reference Range Interpretation [...] NUCLEATED RBCS (test code = 0.00 K/UL 03639) CBC W/AUTO [id number] 00:00:00 Test Item Value Reference Range Interpretation [...] NUCLEATED RBCS (test code = 0.00 K/UL 74723) LIPID [id number] 00:00:00 Test Item Value Reference Range Interpretation Comments CHOLESTEROL (test code = 2210) 269 MG/DL TRIGLYCERIDES (test code = 2232) 111 MG/DL HDL CHOLESTEROL (test code = 2220) 42 MG/DL CALC LDL CHOL (test code = 2237) 202 MG/DL RISK RATIO LDL/HDL (test code = 4.81 RATIO 2238) LIPID [id number] 00:00:00 Test Item Value Reference Range Interpretation Comments CHOLESTEROL (test code = 2210) 269 MG/DL TRIGLYCERIDES (test code = 2232) 111 MG/DL HDL CHOLESTEROL (test code = 2220) 42 MG/DL CALC LDL CHOL (test code = 2237) 202 MG/DL RISK RATIO LDL/HDL (test code = 4.81 RATIO 2238) TSH, THIRD [id number] 00:00:00 Test Item Value Reference Range Interpretation Comments TSH, THIRD GENERATION (test >100.000 UIU/ML code = 2821) COMPREHENSIVE METABOLIC [id number] 00:00:00 Test Item Value Reference Range Interpretation Comments GLUCOSE (test code = 2217) 91 MG/DL BUN (test code = 2208) 4 MG/DL CREATININE (test code = 2214) 1.18 MG/DL eGFR (2020 CKD-EPI) (test code 59 ML/MIN/1.73 = 05750) CALC BUN/CREAT (test code = 3 RATIO [...] code = 2219) 16 U/L COMPREHENSIVE METABOLIC [id number] 00:00:00 Test Item Value Reference Range Interpretation Comments GLUCOSE (test code = 2217) 91 MG/DL BUN (test code = 2208) 4 MG/DL CREATININE (test code = 2214) 1.18 MG/DL eGFR (2020 CKD-EPI) (test code 59 ML/MIN/1.73 = 68018) CALC BUN/CREAT (test code = 3 RATIO 2235) SODIUM (test code = 2231) 140 MEQ/L POTASSIUM (test code = 2228) 3.8 MEQ/L CHLORIDE (test code = 2215) 100 MEQ/L CARBON DIOXIDE (test code = 27 MEQ/L 2205) CALCIUM (test code = 2209) 9.5 MG/DL PROTEIN, TOTAL (test code = 7.6 G/DL 2228) ALBUMIN (test code = 220) 4.5 G/DL CALC GLOBULIN (test code = 3.1 G/DL 2239) CALC A/G RATIO (test code = 1.5 RATIO 2233) BILIRUBIN, TOTAL (test code = 0.3 MG/DL 2206) ALKALINE PHOSPHATASE (test 71 U/L code = 2204) AST (test code = 2218) 19 U/L ALT (test code = 2219) 16 U/L TSH, THIRD [id number] 00:00:00 Test Item Value Reference Range Interpretation Comments TSH, THIRD GENERATION (test >100.000 UIU/ML code = 2821) TSH, THIRD [id number] 00:00:00 Test Item Value Reference Range Interpretation Comments TSH, THIRD GENERATION (test >100.000 UIU/ML code = 2821) TSH, THIRD [id number] 00:00:00 Test Item Value Reference Range Interpretation Comments TSH, THIRD GENERATION (test >100.000 UIU/ML code = 2821) COMPREHENSIVE METABOLIC [id number] 00:00:00 Test Item Value Reference Range Interpretation Comments GLUCOSE (test code = 2217) 91 MG/DL BUN (test code = 2208) 4 MG/DL CREATININE (test code = 2214) 1.18 MG/DL eGFR (2020 CKD-EPI) (test code 59 ML/MIN/1.73 = 18595) CALC BUN/CREAT (test code = 3 RATIO [...] code = 2219) 16 U/L COMPREHENSIVE METABOLIC [id number] 00:00:00 Test Item Value Reference Range Interpretation Comments GLUCOSE (test code = 2217) 91 MG/DL BUN (test code = 2208) 4 MG/DL CREATININE (test code = 2214) 1.18 MG/DL eGFR (2020 CKD-EPI) (test code 59 ML/MIN/1.73 = 78061) CALC BUN/CREAT (test code = 3 RATIO [...] code = 2219) 16 U/L CBC W/AUTO [id number] 00:00:00 Test Item Value Reference Range Interpretation [...] NUCLEATED RBCS (test code = 0.00 K/UL 60500) CBC W/AUTO [id number] 00:00:00 Test Item Value Reference Range Interpretation [...] NUCLEATED RBCS (test code = 0.00 K/UL 83689) CBC W/AUTO [id number] 00:00:00 Test Item Value Reference Range Interpretation [...] NUCLEATED RBCS (test code = 0.00 K/UL 95676) CBC W/AUTO [id number] 00:00:00 Test Item Value Reference Range Interpretation [...] NUCLEATED RBCS (test code = 0.00 K/UL 65183) LIPID [id number] 00:00:00 Test Item Value Reference Range Interpretation Comments CHOLESTEROL (test code = 2210) 269 MG/DL TRIGLYCERIDES (test code = 2232) 111 MG/DL HDL CHOLESTEROL (test code = 2220) 42 MG/DL CALC LDL CHOL (test code = 2237) 202 MG/DL RISK RATIO LDL/HDL (test code = 4.81 RATIO 2238) LIPID [id number] 00:00:00 Test Item Value Reference Range Interpretation Comments CHOLESTEROL (test code = 2210) 269 MG/DL TRIGLYCERIDES (test code = 2232) 111 MG/DL HDL CHOLESTEROL (test code = 2220) 42 MG/DL CALC LDL CHOL (test code = 2237) 202 MG/DL RISK RATIO LDL/HDL (test code = 4.81 RATIO 2238) CBC W/AUTO [id number] 00:00:00 Test Item Value Reference Range Interpretation [...] NUCLEATED RBCS (test code = 0.00 K/UL 94522) CBC W/AUTO [id number] 00:00:00 Test Item Value Reference Range Interpretation [...] NUCLEATED RBCS (test code = 0.00 K/UL 73753) LIPID [id number] 00:00:00 Test Item Value Reference Range Interpretation Comments CHOLESTEROL (test code = 2210) 269 MG/DL TRIGLYCERIDES (test code = 2232) 111 MG/DL HDL CHOLESTEROL (test code = 2220) 42 MG/DL CALC LDL CHOL (test code = 2237) 202 MG/DL RISK RATIO LDL/HDL (test code = 4.81 RATIO 2238) TSH, THIRD [id number] 00:00:00 Test Item Value Reference Range Interpretation Comments TSH, THIRD GENERATION (test >100.000 UIU/ML code = 2821) TSH, THIRD [id number] 00:00:00 Test Item Value Reference Range Interpretation Comments TSH, THIRD GENERATION (test >100.000 UIU/ML code = 2821) TSH, THIRD [id number] 00:00:00 Test Item Value Reference Range Interpretation Comments TSH, THIRD GENERATION (test >100.000 UIU/ML code = 2821) COMPREHENSIVE METABOLIC [id number] 00:00:00 Test Item Value Reference Range Interpretation Comments GLUCOSE (test code = 2217) 91 MG/DL BUN (test code = 2208) 4 MG/DL CREATININE (test code = 2214) 1.18 MG/DL eGFR (2020 CKD-EPI) (test code 59 ML/MIN/1.73 = 24212) CALC BUN/CREAT (test code = 3 RATIO [...] code = 2219) 16 U/L COMPREHENSIVE METABOLIC [id number] 00:00:00 Test Item Value Reference Range Interpretation Comments GLUCOSE (test code = 2217) 91 MG/DL BUN (test code = 2208) 4 MG/DL CREATININE (test code = 2214) 1.18 MG/DL eGFR (2020 CKD-EPI) (test code 59 ML/MIN/1.73 = 17990) CALC BUN/CREAT (test code = 3 RATIO [...] code = 2219) 16 U/L CBC W/AUTO [id number] 00:00:00 Test Item Value Reference Range Interpretation [...] NUCLEATED RBCS (test code = 0.00 K/UL 95296) CBC W/AUTO [id number] 00:00:00 Test Item Value Reference Range Interpretation [...] NUCLEATED RBCS (test code = 0.00 K/UL 23840) LIPID [id number] 00:00:00 Test Item Value Reference Range Interpretation Comments CHOLESTEROL (test code = 2210) 269 MG/DL TRIGLYCERIDES (test code = 2232) 111 MG/DL HDL CHOLESTEROL (test code = 2220) 42 MG/DL CALC LDL CHOL (test code = 2237) 202 MG/DL RISK RATIO LDL/HDL (test code = 4.81 RATIO 2238) CBC W/AUTO [id number] 00:00:00 Test Item Value Reference Range Interpretation [...] NUCLEATED RBCS (test code = 0.00 K/UL 98779) LIPID [id number] 00:00:00 Test Item Value Reference Range Interpretation Comments CHOLESTEROL (test code = 2210) 269 MG/DL TRIGLYCERIDES (test code = 2232) 111 MG/DL HDL CHOLESTEROL (test code = 2220) 42 MG/DL CALC LDL CHOL (test code = 2237) 202 MG/DL RISK RATIO LDL/HDL (test code = 4.81 RATIO 2238) LIPID [id number] 00:00:00 Test Item Value Reference Range Interpretation Comments CHOLESTEROL (test code = 2210) 269 MG/DL TRIGLYCERIDES (test code = 2232) 111 MG/DL HDL CHOLESTEROL (test code = 2220) 42 MG/DL CALC LDL CHOL (test code = 2237) 202 MG/DL RISK RATIO LDL/HDL (test code = 4.81 RATIO 2238) TSH, THIRD [id number] 00:00:00 Test Item Value Reference Range Interpretation Comments TSH, THIRD GENERATION (test >100.000 UIU/ML code = 2821) TSH, THIRD [id number] 00:00:00 Test Item Value Reference Range Interpretation Comments TSH, THIRD GENERATION (test >100.000 UIU/ML code = 2821) TSH, THIRD [id number] 00:00:00 Test Item Value Reference Range Interpretation Comments TSH, THIRD GENERATION (test >100.000 UIU/ML code = 2821) COMPREHENSIVE METABOLIC [id number] 00:00:00 Test Item Value Reference Range Interpretation Comments GLUCOSE (test code = 2217) 91 MG/DL BUN (test code = 2208) 4 MG/DL CREATININE (test code = 2214) 1.18 MG/DL eGFR (2020 CKD-EPI) (test code 59 ML/MIN/1.73 = 88018) CALC BUN/CREAT (test code = 3 RATIO [...] CALC GLOBULIN (test code = 3.1 G/DL 0) CALC A/G RATIO (test code = 1.5 RATIO 2234) BILIRUBIN, TOTAL (test code = 0.3 MG/DL 2206) ALKALINE PHOSPHATASE (test 71 U/L code = 2204) AST (test code = 2218) 19 U/L ALT (test code = 2219) 16 U/L COMPREHENSIVE METABOLIC [id number] 00:00:00 Test Item Value Reference Range Interpretation Comments GLUCOSE (test code = 2217) 91 MG/DL BUN (test code = 2208) 4 MG/DL CREATININE (test code = 2214) 1.18 MG/DL eGFR (2020 CKD-EPI) (test code 59 ML/MIN/1.73 = 40334) CALC BUN/CREAT (test code = 3 RATIO [...] CALC GLOBULIN (test code = 3.1 G/DL 224) CALC A/G RATIO (test code = 1.5 RATIO 2234) BILIRUBIN, TOTAL (test code = 0.3 MG/DL 2206) ALKALINE PHOSPHATASE (test 71 U/L code = 2204) AST (test code = 2218) 19 U/L ALT (test code = 2219) 16 U/L CBC W/AUTO [id number] 00:00:00 Test Item Value Reference Range Interpretation [...] NUCLEATED RBCS (test code = 0.00 K/UL 45791) CBC W/AUTO [id number] 00:00:00 Test Item Value Reference Range Interpretation [...] NUCLEATED RBCS (test code = 0.00 K/UL 23060) CBC W/AUTO [id number] 00:00:00 Test Item Value Reference Range Interpretation [...] NUCLEATED RBCS (test code = 0.00 K/UL 61363) LIPID [id number] 00:00:00 Test Item Value Reference Range Interpretation Comments CHOLESTEROL (test code = 2210) 269 MG/DL TRIGLYCERIDES (test code = 2232) 111 MG/DL HDL CHOLESTEROL (test code = 2220) 42 MG/DL CALC LDL CHOL (test code = 2237) 202 MG/DL RISK RATIO LDL/HDL (test code = 4.81 RATIO 2238) LIPID [id number] 00:00:00 Test Item Value Reference Range Interpretation Comments CHOLESTEROL (test code = 2210) 269 MG/DL TRIGLYCERIDES (test code = 2232) 111 MG/DL HDL CHOLESTEROL (test code = 2220) 42 MG/DL CALC LDL CHOL (test code = 2237) 202 MG/DL RISK RATIO LDL/HDL (test code = 4.81 RATIO 2238) TSH, THIRD [id number] 00:00:00 Test Item Value Reference Range Interpretation Comments TSH, THIRD GENERATION (test >100.000 UIU/ML code = 2821) TSH, THIRD [id number] 00:00:00 Test Item Value Reference Range Interpretation Comments TSH, THIRD GENERATION (test >100.000 UIU/ML code = 2821) [id number] 04:33:00 Test Item Value Reference Range Interpretation Comments APPEARANCE (test code = Clear Clear 6574076614) COLOR (test code = Yellow Yellow 0668525223) PH (test code = 4.8-8.0 1115235717) SP GRAVITY (test code = 1.003-1.030 H 4543331205) GLU U QUAL (test code = Normal Normal 1525885514) BLOOD (test code = Negative Negative 2874641223) KETONES (test code = Negative Negative 5972966996) PROTEIN (test code = Negative Negative 2887-8) UROBILIN (test code = Normal Normal 6601953235) BILIRUBIN (test code = Negative Negative 7542100526) NITRITE (test code = Negative Negative 5427355346) LEUK VY (test code = Negative Negative 8390474650) RBC/HPF (test code = See_Comment [Autom ated message] 0041075452) The system [employer] generated this result transmitted ref erence range: 0 - 3 HP F. The reference range was not used to int erpret this result as normal/abnormal . WBC/HPF (test code = <1 See_Comment [Autom ated message] 8214412126) The system [employer] generated this result transmitted ref erence range: 0 - 5 HP F. The reference range was not used to int erpret this result as normal/abnormal . BACTERIA (test code = Few Negative A 0792945986) SQ EPITH (test code = <1 HPF 5731017288) Lab Interpretation (test Abnormal code = 59477-0) [facility] [id number] 02:56:04Impression: 1. Patchy ground glass opacities, predominating [...] in appearance.4. Cholecystect rina.RL: 460End of Report UnB[facility] Mar[facility] FallsXR CHEST 1 [id number] 02:20:50 Impression: No acute abnormalities evident. RL: [...] theabdomen. No acute bony abnormalities are evident. Msmb, Radiant Results Inft User - 05/30/2020 8:21 PM CSTOrdering Physician: JANENE NAVASHistory: Short of breathTechnique: Chest, single viewComparison: NoneFindings: The lungs are clear. No pleural effusions are evident. Heart size isnormal. The superior mediastinal silhouette is unremarkable for age andprojection. Surgical clips are seen within the right upper quadrant of theabdomen. No acute bony abnormalities are evident.IMPRESSIONImpression:No acute abnormalities evident.RL: 460End of Report UnB[facility] Marble FallsPOCT [id number] 01:29:00 Test Item Value Reference Range Interpretation Comments POCT PREG (test code = Hysterectomy HX of Hysterectomy 1605) Lab Interpretation Normal (test code = 06781-9) [facility] NOW RAPID TESTING)2020-05-31 01:23:00 Test Item Value Reference Range Interpretation Comments SARS-CoV-2 Rapid ID NOW Not Detected Not Detected (test code = 55596-2) JASMEET (test code = JASMEET) ID NOW COVID-19 Assay is an isothermal nucleic acid amplification test intended for the qualitative detection of nucleic acid from SARS-CoV-2 viral RNA in nasopharyngeal (I&C TECHNICIAN) specimens. It is used under Emergency Use [...] indicated. Lab Interpretation Normal (test code = 94828-6) [facility] [id number] 00:41:00 Test Item Value Reference Range Interpretation Comments TROPONIN I (test <0.012 See_Comment [Automated code = 6577792909) message] The system which generated this result [...] ? Lab Interpretation Normal (test code = 19974-4) [facility]. METABOLIC PANEL (81001)2020-05-31 00:32:00 Test Item Value Reference Range Interpretation Comments NA (test code = 138 mmol/L 135-145 0888228934) K (test code = 4.0 mmol/L 3.5-5 6098952501) CL (test code = 101 mmol/L 98-108 9587301010) CO2 TOTAL (test code = 27 mmol/L 23-31 6216486955) AGAP (test code = 2-16 4973529189) BUN (test code = 5 mg/dL 7-23 L 6734328484) GLUCOSE (test code = 136 mg/dL 70-110 H 9853369748) CREATININE (test code = 0.56 mg/dL 0.5-1.04 1846226518) TOTAL BILI (test code = 0.4 mg/dL 0.1-1.6 8597755258) CALCIUM (test code = 9.0 mg/dL 8.6-10.6 6938674452) T PROTEIN (test code = 8.3 g/dL 6.3-8.2 H 3977905164) ALBUMIN (test code = 4.6 g/dL 3.5-5 2771111252) ALK PHOS (test code = 93 U/L 34-122 3531219413) ALTv (test code = 21 U/L 5-35 1742-6) AST(SGOT) (test code = 25 U/L 13-40 1264696258) eGFR Calculation mL/min/1.73m2 (Non-) (test code = 2896242066) eGFR Calculation mL/min/1.73m2 () (test code = 7416433998) JASMEET (test code = JASMEET) Association of [...] tests). Lab Interpretation Abnormal (test code = 36688-5) [facility]-[id number] 00:30:00 Test Item Value Reference Interpretation Comments Range D-DIMER (test code = See_Comment H [Autom ated 5300959936) message] The system which generated this result [...] diagnosis. Lab Interpretation Abnormal (test code = 79817-5) [facility] WITH [id number] 00:13:00 Test Item Value Reference Range Interpretation [...] RDW-SD (test code = 40.5 fL 39-49.9 85940-0) RDW-CV (test code = 12.2 % 12-15.5 788-0) PLT (test code = See_Comment [Automated 777-3) message] The system which generated this result transmit justino reference range : 166 - 358 10*3/ ?L. The reference range was not u sed to interpret th is result as normal/abnormal . MPV (test code = 9.4 fL 9.5-12.9 L 78616-1) NRBC/100 WBC (test See_Comment [Automat ed code = 6339513344) message] The system which generated this result transmit justino reference range : 0.0 - 10.0 /100 WBCs. The reference range was not used to interpret this result as normal/abnormal . NRBC x10^3 (test code <0.01 See_Comment [Auto mated = 0832368270) message] The system which generated this result transmit justino reference range : 10*3/?L. The reference range was not used to interpret this result as normal/abnormal . GRAN MAT (NEUT) % 93.5 % (test code = 770-8) IMM GRAN % (test code 0.80 % = 2922613751) LYMPH % (test code = 4.8 % 736-9) MONO % (test code = 0.6 % 5905-5) EOS % (test code = 0.1 % 713-8) BASO % (test code = 0.2 % 706-2) GRAN MAT x10^3(ANC) 13.73 10*3/uL 1.88-7.09 H (test code = 1017876045) IMM GRAN x10^3 (test 0.12 10*3/uL 0-0.06 H code = 1163530949) LYMPH x10^3 (test code 0.71 10*3/uL 1.32-3.29 L = 731-0) MONO x10^3 (test code 0.09 10*3/uL 0.33-0.92 L = 742-7) EOS x10^3 (test code = <0.03 0.03-0.39 L 711-2) BASO x10^3 (test code 0.03 10*3/uL 0.01-0.07 = 704-7) Lab Interpretation Abnormal (test code = 52813-9) [facility] History and Physical Notes Date/Time Note Provider Source 2022-06-22 04:37:21 4860-07-64Z11:37:21Formatting of [facility] this note is different from the original.HOT Admit X History & Physical for HOT 1Attending Admission History & PhysicalFor overnight issues until 7am on 06/22/22, please message Sugey Morales on [employer] Secure Chat.Assessment & Plan:Ms. 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 States she would try to slit her wrists if able to. Has extensive history of SI. TSH low, has been off FT4 for around 2 weeks now, has had difficulty dosing, though SI/depression have been longstanding, attributed to social situation and chronic medical issues.-will need to consult inpatient psych team in AM-will increase escitalopram to 20mg daily-will increase trazodone to 200mg qHS-check EKG for QTc as pt on several QT prolonging drugs, incl Plaquenil-continue 1:1 sitter#Hypothyroidism:TSH low. FT4 wnl. Likely subclinical hyperthyroidism.-will check T3 and FT3#Neurogenic bladder:Hernandez placed 02/2022 in outside ER without subsequent voiding trial or follow up with urology given financial difficulty. Patient has longstanding history of neurogenic bladder, previously having done straight caths and using adult diapers. Has had UTIs associated with Hernandez, most recently s/p course of cefdinir in May 2022. Currently without s/s of UTI.-will attempt voiding trial while here-continue home oxybutynin#Epilepsy:Has had several breakthrough seizures in the past few years, including resulting in upper extremity weakness and diminished function per pt, requiring 's assistance with ADLs.-will continue home Keppra 1500mg BID, Vimpat 50mg BID-seizure precautions#CVA:-continue asa and statin for secondary prevention#Neuropathic pain:-continue gabapentin#RA:-continue home hydroxychloroquine#Chronic hypotension:Due to CVAs?-continue home midodrineMedication Reconciliation: CompleteDiet: RegularProphylaxis: LovenoxCode: FullDispo: Pending IP psych recsRSaskia Walker Professor, [facility] Internal Medicine#[id number] Patient identified by verbally telling name, and armband was visualized and verified as matching verbal information provided by patient.Admission Diagnosis: Suicidal ideationChief Complaint: Suicidal ideationHistory Obtained From: Patient, SpouseHistory of Present Illness: Ms. Nolan is a 42 year old female with epilepsy on AEDs, history of multiple CVAs (at least 5, last 04/2021), mood disorder with history of SI, RA on hydroxychloroquine, neurogenic bladder with chronic Hernandez, hypothyroidism, insomnia, vision impairment, functional limitations from impaired ADLs who is admitted for suicidal ideation.History obtained at bedside directly from the patient, who was A&Ox4.Patient was told to present to the hospital after a visit with her therapist, during which patient expressed suicidal ideation. States that, given the chance, she would likely slit her wrists. Patient has a chronic history of SI and has struggled with depression for a long time. Attributes a large part of her symptoms to stressors and having lived with chronic diseases such as RA and epilepsy, and having had multiple strokes. Has functional limitations and vision impairment as a result of strokes and seizures, and unable to perform ADLs, for which helps her quite a bit. Patient denied any other acute medical complaints. States that she's holding her levothyroxine because her TSH has been low and that it's always been difficult to control and get in the proper range. Had a Hernandez placed in the ER Feb 2022 due to her chronic neuropathic bladder, and has not been able to follow up with urology due to financial issues.ER Course:Presented with stable labs and vitals. TSH 0.16, FT4 wnl. ER psych evaluated and recommended inpatient psych. Patient likely voluntary as that is how she presented to ER.History: The allergies, medications, past medical, surgical, family and social histories were reviewed and documented in the appropriate sections in [employer]M.Medical: ReviewedNo past medical history on file.Surgical: ReviewedNo past surgical history on file.Social: ReviewedSocial History Tobac co Use Smoking status: Not on file Smokeless tobacco: Not on file Substance Use Topics Alcohol use: Not on file Family: ReviewedNo family history on file.Prior to admission medications: Reviewed None Current medications: Reviewed No current facility-administered medications for this encounter. No current outpatient medications on file. Allergies: Reviewed Allergies Allergen Reactions Prednisone Hives Prior To Admission Meds: reviewedReview of Systems: Full review of systems completed with pertinent positives and negatives noted as per HPIVS: Visit VitalsBP 107/72 Pulse 67 Temp 98.2 F (36.8 C) Resp 18 Ht 5' 11" (1.803 m) Wt 235 lb (106.6 kg) SpO2 98% BMI 32.78 kg/m2 BSA 2.31 m2 Physical Exam:Assessed at 0500 on 06/22/22 General Appearance: Awake, alert, no apparent distressHEENT: PERRLA, moist mucous membranesLungs: Lungs clear to auscultation with no wheezing, rales, or rhonchiHeart: Regular rate and rhythm without murmur, gallop, or rubs.Abdomen: Abdomen soft, non-tender & symmetric. Bowel sounds normal. No masses, organomegaly. No rebound or guarding.Vascular: Strong peripheral pulses in all extremitiesExtremities: full range of motion bilaterally, no edemaNeurologic: Mental status intactData: Reviewed ssociated attestation - Chemo Al MD - 06/22/2022 10:29 AM CST Chart reviewedPatient examinedPsych consulted. Will likely be re-evaluated Saturday 06/24 to give some time to see effect of med changes recommended on admission.Nicotine patch ordered Rest of plan per Dr. Morales's note.Saskia Recio Professor Section of General Internal Medicine, [facility] ID [id number] and physical [id number], Roberto H1.2.840.357477.1.13.43.2.7.2.517415 CigxhtcWwkhzzyGBD0463-01-68R84:29:03 History and physical noteTXT1.2.840.146851.1.13.43.2.7.2. 913729|[id number] for patient zhgz40637-3Fcmwfqs and physical noteLNOhioHealth Nelsonville [facility] Center25[address] [facility] Health SystemGrkmOahdmgtSuuerjyIEBL4628983332TYLL 8198-57-39C50:29:031.2.840.691658.1. 72.3.15|1.2.840.217262.1.13.43.2.7.2 .727879_[id number] Notes Date/Time Note Provider Source 2023-02-04 4215-93-81A60:16:56Formatting of [facility] 10:16:56 this note might be different from the original.Called the patient and discussed with her We will decrease levothyroxine from 250 mcg daily to 225 mcg daily I will send prescription in Pending TSI and TRAB to assess risk of thyroid eye Israa Ali, MDAssistant Professor Division of Endocrinology 98305-0Nrgqhmoeb encounter CdjiJS4903-21-26Z14:21:43Telephone encounter NoteTXT1.2.840.161961.1.13.104.2.7 .2.379089|[id number] for patient yrbb79776-8MejzLSAIALFHMH[id number] 33GCRWNTLSSQOFIVARIRQBJE4944-14-66 T10:21:431.2.840.511753.1.72.3.15| 1.2.840.830981.1.13.104.2.7.2.7278 [id number] 2023-02-03 0487-42-23Y41:15:00Formatting of [facility] 14:15:00 this note is different from the original.Images from the original note were not included.Pt is here to complete all labs for Ricki Demarco MD . Marc Arizmendi 02/03/2023 2:27 PMVenipuncture collection performed by clean technique on the left anticubitus. Total of 1 attempts were made. Slight pressure and a bandage/dressing were applied to the site(s). The patient experienced no complications. The following specimens were processed according to instructions and sent to [facility] laboratories per lab order on 02/03/2023: LT BLUE SST 3 RED LAV PPT DK GREEN (LiHep) DK GREEN (SodH) RIDER DK BLUE (K2) DK BLUE (S) ACD Blood Culture NIPT/NTD 52859-5Kggqn RgwpFK1447-84-36Z27:27:24Nurse NoteTXT1.2.840.604040.1.13.104.2.7 .2.539645|[id number] for patient aiod25481-4Lshzn Note[id number] 37REKCJYKIKNWIEVENBISMQD1772-18-29 T14:27:241.2.840.152929.1.72.3.15| 1.2.840.713874.1.13.104.2.7.2.7278 [id number] 2022-11-10 4700-14-87Y73:03:31Formatting of [facility] 08:03:31 this note might be different from System the original.Approving, but needs appt for additional refills. 84321-4Zyjnmlkab encounter PztiTL5645-45-90C81:03:31Telephone encounter NoteTXT1.2.840.249412.1.13.43.2.7. 2.235556|[id number] for patient hgbv56940-9FrnaUHBCHRgsncu[address] [id number] KC6059-04-67I35:03:311.2.840.66809 0.1.72.3.15|1.2.840.041367.1.13.43 .2.7.2.727879_[id number] 2022-10-02 9116-43-68P96:30:52Formatting of [facility] 08:30:52 this note might be different from System the original.Approving, but needs appt for additional refills. 61868-3Qlnyybhwg encounter DegeOT4508-61-66C38:30:52Telephone encounter NoteTXT1.2.840.020244.1.13.43.2.7. 2.649391|[id number] for patient vzna31739-9ZnrpINYSMAhbvxa[address] StreetTXTX[address]77[address]US VU2706-72-16C98:30:521.2.840.47632 0.1.72.3.15|1.2.840.950002.1.13.43 .2.7.2.727879_[id number] 2022-08-05 6523-39-69E66:40:00 Addended by: [facility] 09:40:00 VISHNU PALMER on: 08/05/2022 01:56 System PM Modules accepted: Orders 35348-5Reihuifq TptqxwwzYZ4172-32-41V94:56:55Adden dum DocumentTXT1.2.840.941508.1.13.43. 2.7.2.536879|[id number] for patient jxnt32857-9JkrzFPINAVanxajJamaica Hospital Medical Center2525 UP Health SystemYnejRqgxyqvDhwnhnwKQMK2793135034JL JC2802-38-57C33:56:551.2.840.18140 0.1.72.3.15|1.2.840.783235.1.13.43 .2.7.2.727879_[id number] 2022-06-24 6258-58-02M86:12:00Formatting of Abby Turpin te [facility] 16:12:00 this note might be different from RN System the original.Explained discharge instructions to patient and (Heladio) at the bedside, gave pt follow up appointment for Mental Health Services as scheduled for July 08, instructed patient to make follow up appointment with pateint's PCP. Pt and verbalized understanding. Medications were delivered at the bedside by pharmacist Asha. Gave patient Ask My Nurse Phone number. Patient with hernandez in place, patient has history of chronic, both pateint and verbalized understanding on how to care for hernandez. Educated patient to come to nearest emergency center if patient reports shortness of breath, fever. Pt left with , paperwork, and medications. Removed peripheral IV line, pt was transported by personal wheelchair. Pt left unit AOX4 in no distress. No needs at this time. 4111347Mkarqxqkc Note1.2.840.701128.1.13.43.2.7.4.7 32218.87158274-47-83P18:15:59Flows olimpia NoteTXT1.2.840.210958.1.13.43.2.7. 2.447143|[id number] for patient cfal24488-7KjxtNU552806427Uwknbdn PrakashCleveland Clinic [facility]25[address] [facility] Health SystemPpquNkbccrtJeipzyfLMXF2220733334RG FN7309-18-35G59:15:591.2.840.76909 0.1.72.3.15|1.2.840.687284.1.13.43 .2.7.2.727879_[id number] 2022-06-24 8864-20-57M63:12:00Formatting of [facility] 16:12:00 this note might be different from System the original.Problem: Suicidal ThoughtsGoal: Patient Will Not Express Suicidal Thoughts Or ActionsDescription: Patient will not experience suicidal thoughts and reduce impulsive behaviors that may result in self-injury.Outcome: Resolved Problem: Hospital Acquired Venous Thromboembolism (VTE)Goal: Absence of Hospital Acquired VTE (DVT or PE)Description: Patient will not develop VTE (DVT or PE) during the hospital stay.Outcome: Resolved Problem: Knowledge DeficitGoal: Increase Understanding of Causes and Management of Disease Process and TreatmentsDescription: Patient will be educated with accurate information, demonstrate knowledge and skills regarding the disease process, and the diagnostic and therapeutic plan.Outcome: Resolved Problem: Healing EnvironmentGoal: Provide A Physical Environment Affirmed By The Patient To Be Safe And ComfortableOutcome: ResolvedGoal: Identify The Patient's Healing GoalOutcome: ResolvedGoal: Identify Traditional / Cultural Healing Practice (s)Outcome: Resolved Problem: Relationship Based CareGoal: Develop / Initiate The Interdisciplinary Plan For DischargeOutcome: ResolvedGoal: Identify Support SystemsOutcome: ResolvedGoal: Patient / Family / S.O. Are Supportive And Accepting Of The Established Care GoalsOutcome: Resolved Problem: Culturally Responsive CareGoal: Provide Culturally Competent CareOutcome: Resolved Problem: Standards Of Nursing CareGoal: Maintain Standards Of Nursing CareDescription: * Verify Care Meets Standards For Assessment And Management Of Patient Status, Medications And Treatment, Safety, And Education.* Care Reviewed Regarding:> Education Of Patient, Family, S.O.> Verify Understanding Of Causes, Treatment And Follow-Up Care Related To Disease Process.> Administration And Coordination Of Medications And Treatments As Prescribed.> Assessment, Evaluation And Communication Of Status As Indicated By: Patient Condition, Treatment And / Or Patient Response.> Comfort Measures As Indicated By: Patient Subjective And Objective Responses.Outcome: Resolved Problem: Falls / InjuryGoal: Absence of fall or injuryDescription: Refer to the Documentation Flowsheet for Interventions.Outcome: Resolved Problem: Compromised Skin IntegrityGoal: Skin integrity is maintained or improvedDescription: Assess and monitor skin integrity. Identify patients at risk for skin breakdown on admission and per policy. Collaborate with interdisciplinary team and initiate plans and interventions as needed.Outcome: ResolvedGoal: Fluid and electrolyte balance are achieved/maintainedDescription: Assess and monitor vital signs (orthostatic vitals if applicable), fluid intake and output, urine color, labs, skin turgor, mucous membranes, jugular venous distention, edema, circumference of edematous extremities and abdominal girth, respiratory status, and mental status. Monitor for signs and symptoms of hypovolemia (tachycardia, rapid breathing, decreased urine output, postural hypotension, confusion, syncope). Monitor for signs and symptoms of hypervolemia (strong rapid pulse, shortness of breath, difficulty breathing lying down, crackles heard in lung hunt, edema). Collaborate with interdisciplinary team and initiate plan and interventions as ordered.Outcome: ResolvedGoal: Nutritional status is improvingDescription: Monitor and assess patient for malnutrition (ex- brittle hair, bruises, dry skin, pale skin and conjunctiva, muscle wasting, smooth red tongue, and disorientation). Collaborate with interdisciplinary team and initiate plan and interventions as ordered. Monitor patient's weight and dietary intake as ordered or per policy. Utilize nutrition screening tool and intervene per policy. Determine patient's food preferences and provide high-protein, high-caloric foods as appropriate.Outcome: Resolved Problem: URINARY INCONTIENCEGoal: Perineal skin integrity is maintained or improvedOutcome: Resolved Problem: Pain - AcuteGoal: An Acceptable Level Of ComfortDescription: Patient will have adequate relief of pain, be able to cope with unrelieved pain using pharmacological and non-pharmacological methods and be able to perform desired activities.Outcome: Resolved 2365372Yioh of Care1.2.840.958329.1.13.43.2.7.4.7 61868.51761701-78-61R38:08:51Plan of CareTXT1.2.840.832609.1.13.43.2.7. 2.910988|[id number] for patient ozlf93607-4FfvpOJJHNRiymtyJamaica Hospital Medical Center2525 [facility] Health SystemErjqSjgivdbKyrbzedIUWA7524531294IY HT4670-55-17F08:08:511.2.840.78800 0.1.72.3.15|1.2.840.254909.1.13.43 .2.7.2.727879_[id number] 2022-06-24 5580-45-41Z49:58:36Formatting of La Dillon RN [facility] 12:58:36 this note is different from the System original.Problem: Psychosocial/Initial Assessment/Discharge PlanningIntervention:Per H&P : Destinee Nolan, a 42y.o. female, feels better today "mood is at 80%". No SI. She wants to be with her . She feels that she slept a little better and is amenable to further adjustments in her medications. She is amenable to undergo sleep study as well as follow up with psychiatry. She feels her depression is much better but still has some anxiety.Clinical Nurse Binding Cementer French Cord reviewed chart, met the patient at bedside, introduced self and discussed discharge plan/options; CNCM confirmed patient's identity using two identifiers( name and ); The patient presented alert, oriented, maintained good eye contact, engaged in this discharge planning assessment and provided following information: 06/24/22 1250 Charting Type Charting Type Initial Patient Status Current Status Observation Patient Information Source of Information Patient County of Residence [place] Country of [place]) Immigration Status: [place] Citizen Behavior Alert;Oriented Health Care Concerns Change in health care status Discharge Planning Assessment Current Residence Apartment(Patient stated she lives with her spouse, [facility] address, [address], [facility] [address] and will return to the aforementioned address.) Current Household Composition Spouse / significant other Current Support System & Aniticipated Discharge Support System Immediate family;Significant other Current Home Care Services No Current DME Services Yes Type of DME at Home Wheelchair Current Provider Services No Patient Expects to be Discharged to: Apartment(Patient stated she lives with her spouse, Heladio [facility] address, [address], [facility] [place] [address] and will return to the aforementioned address.) Anticipated Discharge Support System Significant other;Immediate family Transportation on discharge Family/Friend Name/phone number Heladio Nolan - [phone] Transportation for follow-up appointments Family/Friend Name/phone number Heladio Nolan - [phone] General Family Information Patient Marital Status Income Information Income Source Unemployed Financial Resources Funding Source/Insurance Status Self-Pay Mental Health Mental Health Concerns History of outpatient treatment Substance Abuse Substance Abuse (patient denies) Acuity Level Medical Acuity Category 3 Strengths and Limitations Patient Strengths Willing/Able to participate in care;Intact cognition;Accepts diagnosis/limitations;Dependable family support;High functional status;Family/Loved one support;Patient / Family motivated (Comment) Patient Limitations Co-morbidities Discharge Plan Discussion of Discharge Plan Patient Response to Discharge Plan Agreed Healthcare Team Collaboration Team 5, DispositionPatient stated she lives with her [facility] address, [address], [facility] [place] [address] and will return to the aforementioned address.Transportation:[facility] [phone]/Contact information:[place] [phone] Needs:Medical Insurance: Self pay screenedCalera Health eligibility: Self pay screenedDME: [facility] Health: NoneProvide Service: None Medical [facility] NetworkPreferred Pharmacy: [facility]/ [facility] Resources: No community resource needs identified by the patient at this time.Mental Health:Psyche team is seeing the patientSubstance abuse:Tobacco: YesAlcohol:DeniesIllegal Drugs:DeniesPlan for Medication Pickup:Patient is enrolled in Meds to Bed program.Medication will be delivered to bedside at the time of discharge.Evaluation:CNCM met the patient at bedside and discussed about the discharge plans, see above.Patient had no other questions or concerns at this time. [facility] with the patient and Interdisciplinary team concerning discharge needs. Thank you, Laurie Dillon, MSN, RNC, PORTILLO-RN, NPD-BCClinical Nurse Binding Cementer French Cord Mely [id number] Note1.2.840.120102.1.13.43.2.7.4.7 09021.78962216-18-05X13:07:12Flows heet NoteTXT1.2.840.147501.1.13.43.2.7. 2.792227|[id number] for patient [id number] T Su[place] [address] [id number] FE9248-18-28B72:07:121.2.840.78417 0.1.72.3.15|1.2.840.574251.1.13.43 .2.7.2.727879_[id number] 2022-06-24 7266-61-87B31:09:59Formatting of Nichelle Espinoza [facility] 08:09:59 this note is different from the RN System original. 06/24/22 0808 Intervention Financial Needs Financial Counseling(SELF-PAY SCREENED) Disease Management Meets criteria for Outpatient(h/o SI, RA ,neurogenic bladder with chronic Hernandez, hypothyroidism, insomnia, vision impairment, functional limitations from impaired ADLs who is admitted for suicidal ideation. Psych on board, increasing Lexapro and Trazodone dose, 1:1 sitter) Medical Necessity Screening Observation review([id number].Obs > 52 hrs) Nichelle SCHWARTZ BSNObservation Clinical Nurse Binding Cementer French Cord Hours: 0730- 1600ID # [id number]: [phone]: [id number] Note1.2.840.362178.1.13.43.2.7.4.7 35786.31970144-48-44X21:10:21Flows olimpia NoteTXT1.2.840.131211.1.13.43.2.7. 2.332223|[id number] for patient [id number] P Diaz BALLOhioHealth [facility] Center[address] [place], [place] [address]PjatLwzobeaDbbxikxTRDO8966866409US VK1681-01-53S52:10:211.2.840.34292 0.1.72.3.15|1.2.840.652955.1.13.43 .2.7.2.727879_[id number] 2022-06-24 2334-87-75N94:05:23Formatting of Mai Wharton [facility] 05:05:23 this note might be different from System the original.Problem: Falls / InjuryGoal: Absence of fall or injuryDescription: Refer to the Documentation Flowsheet for Interventions.Outcome: Met This Shift Problem: Pain - AcuteGoal: An Acceptable Level Of ComfortDescription: Patient will have adequate relief of pain, be able to cope with unrelieved pain using pharmacological and non-pharmacological methods and be able to perform desired activities.Outcome: Initiated Problem: Suicidal ThoughtsGoal: Patient Will Not Express Suicidal Thoughts Or ActionsDescription: Patient will not experience suicidal thoughts and reduce impulsive behaviors that may result in self-injury.Outcome: Met This Shift [id number] of Care1.2.840.812597.1.13.43.2.7.4.7 05728.76492875-26-49J99:05:42Plan of CareTXT1.2.840.515537.1.13.43.2.7. 2.601879|[id number] for patient [id number] [facility]2525 [facility] SystemQtczLeeyvhnUzecmdlXPSN8446977094TO BY7249-36-10D28:05:421.2.840.30237 0.1.72.3.15|1.2.840.123823.1.13.43 .2.7.2.727879_[id number] 2022-06-23 0730-54-66L92:35:04Formatting of Damon Wharton [facility] 14:35:04 this note might be different from System the original.Problem: Hospital Acquired Venous Thromboembolism (VTE)Goal: Absence of Hospital Acquired VTE (DVT or PE)Description: Patient will not develop VTE (DVT or PE) during the hospital stay.Outcome: Met This Shift Problem: Healing EnvironmentGoal: Provide A Physical Environment Affirmed By The Patient To Be Safe And ComfortableOutcome: Met This ShiftGoal: Identify The Patient's Healing GoalOutcome: Met This ShiftGoal: Identify Traditional / Cultural Healing Practice (s)Outcome: Met This Shift Problem: Suicidal ThoughtsGoal: Patient Will Not Express Suicidal Thoughts Or ActionsDescription: Patient will not experience suicidal thoughts and reduce impulsive behaviors that may result in self-injury.Outcome: Met This Shift [id number] of Care1.2.840.665062.1.13.43.2.7.4.7 60816.89158451-68-35Y84:36:06Plan of CareTXT1.2.840.153110.1.13.43.2.7. 2.751042|[id number] for patient dcfn45253-7JeqrVS720928113Mkmket Anozie [facility]2525 [facility] Health SystemWheiKosinboOedigjmCXLD2204132377DM VB9228-10-75D67:36:061.2.840.86158 0.1.72.3.15|1.2.840.855362.1.13.43 .2.7.2.727879_[id number] 2022-06-23 8105-43-30E00:18:18Formatting of Nutrition [facility] 13:18:18 this note is different from the System original.Nutrition AssessmentNutrition recs below in blueNutrition Assessment re: Consult - RNNutrition Screen Score: 5 (cachexia/wt loss + gisela + c/s + n/v)Brief Current Medical Issues (Per MD): 42 year old female with epilepsy on AEDs, history of multiple CVAs (at least 5, last 04/2021), mood disorder with history of SI, RA on hydroxychloroquine, neurogenic bladder with chronic Hernandez, hypothyroidism, insomnia, vision impairment, functional limitations from impaired ADLs who is admitted for suicidal ideation.Diagnosis: PMH: Chief Complaint Patient presents with Psychiatric Problem Suicidal ideation. Pt brought pt to EC stating pt [facility] and was sent to [facility] d/t significant medical history and [facility] unable to intake pt d/t med hx. Patient Active Problem List Diagnosis Major depressive disorder, recurrent, moderate Verbalizes suicidal thought s Suicidal ideation No past medical history on file. Pertinent Labs: Pertinent Meds: No results found for: HBA1C 06/21/2022 22:04 Sodium 140 Potassium 4.1 Chloride 106 CO2 31 BUN 4.3 (L) Creatinine 0.7 eGFR 110 Glucose 82 Anion Gap 3 (L) Calcium 8.5 (L) Free T3 2.78 reviewed Current Nutrition Therapy: Anthropometrics: Regular Diet Food allergies/preferences: NKFA per chart Wt Readings from Last 1 Encounters: 06/21/22 235 lb (106.6 kg) Ht Readings from Last 1 Encounters: 06/21/22 5' 11" (1.803 m) Oral Supplement(s): none IBW: 155 lbs (70.4kg) +/-10%151% IBW Body mass index is 32.78 kg/m2. obese I Admit wt: 106.5kg - stated wtEstimated Nutrition Needs (IBW: 70.4kg): Calories: 3740-5239 kcal/day (25-30 kcal/kg)Protein: 70-92 g/day (1-1.3 g/kg) Fluid: ~ 8239-0000 mL/day (1 mL/kcal) or per MD orderSkin: intact - per LDA flow sheet Nutrition-Focused Physical Findings & Comments: Consult received- nutrition score of 5. Hx CVA, AOx4. Pt sleeping at visit. Spoke to RN. No complaints today. PO intake fair, 75% so far per flow sheet. Abd normal. Last BM 06/21. Labs reviewed. Mostly WNL. No edema. No major issues on visual exam today. No edema. Will obtain subjective info at follow up. Hx depressed mood. Wheelchair bound. Obvs x 2. Nutrition Diagnosis (PES):Suspected unintentional wt loss related to poor appetite 2/2 depressed mood as evidenced by reports of poor appetite.Nutrition Intervention (Recommendations):1.) Oral Diet: Continue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
[2023-04-25 16:42] LABS: Absolute Lymphocytes (CBC) 1.7 K/uL (0.7-4.9); Hematocrit 33.9 % (36.0-45.0); MCV 87.7 fL (80-100); MPV 7.7 fL (7.6-11.3); Platelets 201 thou/uL (152-406); RBC Red Blood Cell Count 3.86 M/uL (3.86-4.86)
[2023-04-25 16:56] LABS: ALT/SGPT 19 U/L (13-56); AST/SGOT 14 U/L (15-37); Albumin 3.1 g/dL (3.4-5.0); Alkaline Phosphatase 80 U/L (45-117); Bicarbonate 27 mEq/L (21-32); Bilirubin Total 0.2 mg/dL (0.2-1.0); Glomerular Filtration Rate 104 ml/min (=/>90); Glucose Level 100 mg/dL (74-106); Potassium 3.6 mEq/L (3.5-5.1); Protein, Total 6.9 g/dL (6.4-8.2); Sodium Level 141 mEq/L (136-145)
[2023-04-25 17:00] LABS: Protime INR 1.02
[2023-04-25] MEDS ORDERED: NA CHLORIDE 0.9% 1,000 ML ONE (17:03)
[2023-04-25 17:07] LABS: SARS-CoV-2 Antigen Rapid Res Negative (Negative)
[2023-04-25] MEDS ORDERED: NA CHLORIDE 0.9% 100 ML ONE (17:17)
[2023-04-25] MEDS ORDERED: LEVETIRACETAM 500 MG/5 ML VIAL IV ONE (17:17)
[2023-04-25 17:21] LABS: BUN Blood Urea Nitrogen < 3 mg/dL (7-18)
--- NOTE | 2023-04-25 17:22 | RAD REPORT ---
EXAM DESCRIPTION: RADChest Single View04/25/2023 5:00 pm CLINICAL HISTORY: COUGH COMPARISON: Chest Single View dated 12/20/2022; Chest Single View dated 09/29/2022; Chest Single View d ated 08/30/2022; Chest Single View dated 08/29/2022 TECHNIQUE: Portable AP view of the chest. FINDINGS: The lungs are clear. No pneumothorax or effusion. The cardiomediastinal contours are unre markable. IMPRESSION: No acute cardiopulmonary process.
[2023-04-25] MEDS ORDERED: LORazepam 2 MG/ML VIAL ONE (17:50)
--- NOTE | 2023-04-25 17:53 | ER ---
Nurse's Notes [facility] Name: Naz Boyle Age: 43 yrs Sex: Female : 1980 Arrival Date: 04/25/2023 Time: 16:11 Bed 8 Private MD: Diagnosis: Epileptic seizures related to external causes, not intractable, without status epilepticus;Fever, unspecified Presentation: 04/25 16:18 Chief complaint: EMS states: pt was found by , having multiple seizures and iw uncontrolled tremors, pt does not remember anything since her left this morning at 0800, she has had a cold and chronic UTI, on keppra , EMS gave a total of 10 mg versed IVP , pt now in postictal state. Coronavirus screen: At this time, the client does not indicate any symptoms associated with coronavirus-19. Ebola Screen: Patient negative for fever greater than or equal to 101.5 degrees Fahrenheit, and additional compatible Ebola Virus Disease symptoms Patient denies exposure to infectious person. Patient denies travel to an Ebola-affected area in the 21 days before illness onset. No symptoms or risks identified at this time. Initial Sepsis Screen: Does the patient meet any 2 criteria? No. Patient's initial sepsis screen is negative. Does the patient have a suspected source of infection? No. Patient's initial sepsis screen is negative. Risk Assessment: Do you want to hurt yourself or someone else? Patient reports no desire to harm self or others. Onset of symptoms was April 25, 2023. 16:18 Method Of Arrival: EMS: [facility] iw 16:18 Acuity: MIGUEL 2 iw 16:21 Care prior to arrival: Medication(s) given: versed 5 mg IVP X 2 IV initiated. 18 GA, in iw the left antecubital area. Historical: - Allergies: 16:22 Prednisone; iw - PMHx: 16:22 BRADYCARDIA; Lupus erythematosus; Hypothyroidism; PERIPHERAL NEUROPATHY; CVA; iw Hypercholesterolemia; hypotension; Migraine; RA; RLS; Seizure; SVT; - PSHx: 16:22 Appendectomy; Carpal tunnel luis miguel; Cholecystectomy; hysterectomy; iw - Immunization history:: Adult Immunizations unknown. - Family history:: not pertinent. - Social history:: Smoking status: unknown. - Hospitalizations: : No recent hospitalization is reported. Screenin:43 [facility] ED Fall Risk Assessment (Adult) History of falling in the last 3 months, ph including since admission No falls in past 3 months (0 pts) Confusion or Disorientation No (0 pts) Intoxicated or Sedated Yes (3 pts) Impaired Gait Yes (1 pt) Mobility Assist Device Used Yes (1 pt) Altered Elimination Yes (1 pt) Score/Fall Risk Level 3 or more points = High Risk Oriented to surroundings, Maintained a safe environment, Hourly rounding (assess needs \T\ fall precautionary measures) done, Used ambulatory aids as needed (educated on \T\ assisted with). Abuse screen: Denies threats or abuse. Denies injuries from another. Nutritional screening: No deficits noted. Tuberculosis screening: No symptoms or risk factors identified. Assessment: 16:46 General: Appears in no apparent distress. comfortable, Behavior is calm, cooperative, ph appropriate for age, drowsy. Pain: Denies pain. Neuro: Level of Consciousness is awake, obeys commands, lethargic, post ictal, Oriented to person, place, situation, Seizure activity reported prior to arrival. Cardiovascular: Capillary refill < 3 seconds in bilateral fingers Patient's skin is warm and dry. Respiratory: Airway is patent Respiratory effort is even, unlabored. GI: No signs and/or symptoms were reported involving the gastrointestinal system. : Hernandez in place Urine is clear. Derm: Skin is pink, warm \T\ dry. Musculoskeletal: Circulation, motion, and sensation intact. Range of motion: intact in all extremities. 17:42 Neuro: Seizure activity noted at this time. Dr Hawkins at bedside, IV Ativan 2mg given. ph 19:15 Reassessment: Report received. Pt noted in bed laying to left side. Pt noted with nw1 seizure precautions. VS retaken and map greater than 65. Pt noted postictal. 0 s/s of acute distress at this time. No urine production at this time, therefore Rocephin IV on hold until urine sample can be collected per report. 19:15 Cardiovascular: Heart tones present Capillary refill < 3 seconds Patient's skin is warm nw1 and dry. Respiratory: Airway is patent Respiratory effort is even, unlabored, Breath sounds are clear bilaterally. 19:15 GI: No signs and/or symptoms were reported involving the gastrointestinal system. Bowel nw1 sounds present X 4 quads. : Hernandez in place Urine is pending at this time. Derm: Skin is intact, Skin is pink, warm \T\ dry. Musculoskeletal: Circulation, motion, and sensation intact. Range of motion: intact in all extremities, weakness noted. 20:00 Reassessment: Attempted report. Called both 4th floor hospice patient care secretary and charge phone with nw1 no answer and going to voice mail. Will attempt to give report again. 20:07 Reassessment: Call received from 4th floor CN whom stated she will call back in 2 min nw1 with someone to receive report. 21:14 Reassessment: Report given to Fatou on 4th floor. All questions asked, answered. nw1 Vital Signs: 16:34 BP 103 / 71; Pulse 82; Resp 16 S; Temp 98(O); Pulse Ox 98% on R/A; iw 17:42 BP 111 / 69; Pulse 72; Resp 18; Pulse Ox 99% on R/A; ph 18:23 BP 98 / 71; Pulse 64; Resp 18; Pulse Ox 99% on R/A; ph 19:33 BP 93 / 57; Pulse 63; Resp 15; Pulse Ox 100% ; nw1 Homero Coma Score: 18:23 Eye Response: to voice(3). Motor Response: obeys commands(6). Verbal Response: ph oriented(5). Total: 14. ED Course: 16:12 Patient arrived in ED. iw 16:13 Dimitri Hawkins MD is Attending Physician. rn 16:21 Triage completed. iw 16:22 Arm band placed on. iw 16:24 Chayo Hyde, RN is Primary Nurse. ph 16:35 Initial lab(s) drawn, by me, sent to lab. Inserted saline lock: 18 gauge in left iw antecubital area, using aseptic technique. Blood collected. 17:02 Chest Single View XRAY In Process Unspecified. EDMS 17:44 Patient has correct armband on for positive identification. Placed in gown. Bed in low ph position. Call light in reach. Side rails up X2. Seizure precautions initiated. Pulse ox on. NIBP on. 17:49 Janak Chapin is Hospitalizing Provider. rn 18:00 Hernandez cath removed intact, balloon deflated. Hernandez cath inserted, using sterile ph technique, 16 Fr., by me, balloon inflated, to gravity drainage, Patient tolerated well. 18:23 No provider procedures requiring assistance completed. Patient admitted, IV remains in ph place. 18:46 Dafne Larry MD is Hospitalizing Provider. sb4 19:15 Pulse ox on. NIBP on. nw1 19:15 Flushed left antecubital. nw1 19:38 Provided Education on: POC. Door closed. Noise minimized. Lights dimmed. Warm blanket nw1 given. Administered Medications: 17:41 Drug: Ativan IVP 1 mg IVP once Route: IVP; Site: left antecubital; ph 17:42 Drug: NS 0.9% IV 1000 ml IV at 1000 ml once Route: IV; Rate: 1000 ml; Site: left ph antecubital; 17:42 Drug: Keppra IV 1000 mg IV at calculated rate once Route: IV; Rate: calculated rate; ph Site: left antecubital; 18:22 Follow up: Response: No adverse reaction; IV Status: Completed infusion; IV Intake: ph 100ml 21:57 Drug: Rocephin IV 1 grams IV at calculated rate once; Give after urine obtained Route: nw1 IV; Rate: calculated rate; Site: left antecubital; Medication: 17:44 VIS not applicable for this client. ph Intake: 18:22 IV: 100ml; Total: 100ml. ph Outcome: 17:52 Decision to Hospitalize by Provider. rn 21:14 Admitted to Tele accompanied by tigre, room 431, Report called to LIZZY Lainez nw1 21:14 Condition: stable 21:14 Instructed on the need for admit, 23:25 Patient left the ED. nw1 Signatures: Dispatcher [employer] EDCarmina Pindeo RN RN iw Nieto, Roman, MD MD rn Hall, Patricia, RN RN ph Brown, Sophia, PA-C PA-C sb4 Darya Abbasi RN RN nw1 Corrections: (The following items were deleted from the chart) 19:58 19:15 Reassessment: Report received. Pt noted in bed laying to left side. Pt noted with nw1 seizure precautions. VS retaken and map greater than 65. Pt noted postictal. 0 s/s of acute distress at this time. No urine production at this time, therefore Rocephin IV on hold until urine sample can be collected per report. nw1
--- NOTE | 2023-04-25 17:53 | EDPHYS ---
Physician Documentation [facility] Name: Naz Boyle Age: 43 yrs Sex: Female : 1980 Arrival Date: 04/25/2023 Time: 16:11 Bed 8 Private MD: ED Physician Dimitri Hawkins HPI: 04/25 16:44 This 43 yrs old Female presents to ER via EMS with complaints of Seizure. rn 16:44 The patient presents with a history of multiple seizures, an unknown number. Character rn of seizure(s): Motor activity: generalized, Incontinence: none, Apnea: the patient did not experience apnea, Circulation: the patient did not experience evidence of pulse disturbance. Seizure onset: today. Associated injury: The patient did not suffer any apparent associated injury. Current symptoms: confusion. The patient has experienced similar episodes in the past. The patient has not recently seen a physician. EMS reports seizures began today, unknown number of seizures. History of seizures and takes Keppra and Vimpat. states has had UTI and is being treated for UTI at this time. Also reports low-grade temperature with cough and runny nose. EMS administered 10 mg of Versed prior to arrival as the first 5 mg did not stop seizure. Unclear how long she had been having a seizure for.. Historical: - Allergies: 16:22 Prednisone; iw - PMHx: 16:22 BRADYCARDIA; Lupus erythematosus; Hypothyroidism; PERIPHERAL NEUROPATHY; CVA; iw Hypercholesterolemia; hypotension; Migraine; RA; RLS; Seizure; SVT; - PSHx: 16:22 Appendectomy; Carpal tunnel luis miguel; Cholecystectomy; hysterectomy; iw - Immunization history:: Adult Immunizations unknown. - Family history:: not pertinent. - Social history:: Smoking status: unknown. - Hospitalizations: : No recent hospitalization is reported. ROS: 16:44 Constitutional: Positive for fever Eyes: Negative for injury, pain, redness, and crna, ENT: Positive for nasal congestion Cardiovascular: Negative for chest pain, palpitations, and edema, Respiratory: Positive for cough, negative for shortness of breath Abdomen/GI: Negative for abdominal pain, nausea, vomiting, diarrhea, and constipation, MS/Extremity: Negative for injury and deformity, Skin: Negative for injury, rash, and discoloration, Neuro: Positive for headache and seizure Exam: 16:44 Constitutional: This is a well developed, well nourished patient who is awake, rn somnolent, postictal Head/Face: Normocephalic, atraumatic. ENT: Dry mucous membranes, no oral laceration or bleeding Neck: Trachea midline, no masses palpated, and no cervical lymphadenopathy. Supple, full range of motion without nuchal rigidity, or vertebral point tenderness. No Meningismus. Cardiovascular: Regular rate and rhythm. No pulse deficits. Respiratory: No increased work of breathing, no retractions or nasal flaring. Abdomen/GI: Soft, non-tender Skin: Warm, dry MS/ Extremity: Pulses equal, no cyanosis. Neuro: Awake and alert, GCS 15 Vital Signs: 16:34 BP 103 / 71; Pulse 82; Resp 16 S; Temp 98(O); Pulse Ox 98% on R/A; iw 17:42 BP 111 / 69; Pulse 72; Resp 18; Pulse Ox 99% on R/A; ph 18:23 BP 98 / 71; Pulse 64; Resp 18; Pulse Ox 99% on R/A; ph 19:33 BP 93 / 57; Pulse 63; Resp 15; Pulse Ox 100% ; nw1 Homero Coma Score: 18:23 Eye Response: to voice(3). Motor Response: obeys commands(6). Verbal Response: ph oriented(5). Total: 14. MDM: 16:13 Patient medically screened. rn 17:46 Differential diagnosis: cardiac arrhythmia, seizure. rn 17:46 Data reviewed: vital signs, nurses notes, lab test result(s), radiologic studies, plain rn films, and as a result, I will admit patient. Consideration of Admission/Observation Patient was admitted/placed on observation. Escalation of care including admission/observation considered. Management of patient was discussed with the following: Hospitalist: Will eval and admit patient. 17:47 Care significantly affected by the following chronic conditions: seizure, indwelling rn yvonne. Care significantly affected by the following Social Determinants of Health: Poor access to healthcare and/or lack of insurance. Counseling: I had a detailed discussion with the patient and/or guardian regarding the historical points, exam findings, and any diagnostic results supporting the discharge/admit diagnosis, lab results, radiology results, the need for further work-up and treatment in the hospital. Response to treatment: the patient's symptoms have mildly improved after treatment, and as a result, I will admit patient. ED course: Patient with 2 more seizures while she has been here. Does have a period between them when she is awake and talking. States compliant with medication. Given 2 mg of Ativan here. Will admit for multiple seizures in the setting of a fever. Possible UTI with indwelling catheter. Antibiotics ordered. Blood cultures obtained. Lactate normal. Patient's neurologist is Dr. Morton and he is on-call.. 04/25 16:21 Order name: Blood Culture Adult (2) rn 04/25 16:21 Order name: CBC with Diff; Complete Time: 17:22 rn 04/25 16:21 Order name: CMP; Complete Time: 17:23 rn 04/25 16:21 Order name: Lactate w/ 2H reflex if indic.; Complete Time: 17:22 04/25 16:21 Order name: Protime (+inr); Complete Time: 17:22 04/25 16:21 Order name: Ptt, Activated; Complete Time: 17:22 04/25 16:21 Order name: Urinalysis w/ reflexes rn 04/25 16:21 Order name: Flu; Complete Time: 17:22 rn 04/25 16:21 Order name: Strep rn 04/25 16:21 Order name: SARS RAPID; Complete Time: 17:22 04/25 17:19 Order name: Throat Culture EDOH 04/25 17:46 Order name: Urine Drug Screen 04/25 16:21 Order name: Chest Single View XRAY; Complete Time: 17:23 04/25 16:21 Order name: EKG; Complete Time: 16:22 rn 04/25 16:21 Order name: Accucheck; Complete Time: 17:42 rn 04/25 16:21 Order name: Cardiac monitoring; Complete Time: 17:42 rn 04/25 16:21 Order name: EKG - Nurse/Tech; Complete Time: 18:22 rn 04/25 16:21 Order name: IV Saline Lock - Large Bore; Complete Time: 17:42 rn 04/25 16:21 Order name: Labs collected and sent; Complete Time: 17:42 rn 04/25 16:21 Order name: O2 Per Protocol; Complete Time: 17:42 rn 04/25 16:21 Order name: O2 Sat Monitoring; Complete Time: 17:42 rn 04/25 16:21 Order name: Vital Signs; Complete Time: 17:42 rn Administered Medications: 17:41 Drug: Ativan IVP 1 mg IVP once Route: IVP; Site: left antecubital; ph 17:42 Drug: NS 0.9% IV 1000 ml IV at 1000 ml once Route: IV; Rate: 1000 ml; Site: left ph antecubital; 17:42 Drug: Keppra IV 1000 mg IV at calculated rate once Route: IV; Rate: calculated rate; ph Site: left antecubital; 18:22 Follow up: Response: No adverse reaction; IV Status: Completed infusion; IV Intake: ph 100ml 21:57 Drug: Rocephin IV 1 grams IV at calculated rate once; Give after urine obtained Route: nw1 IV; Rate: calculated rate; Site: left antecubital; Disposition Summary: 04/25/23 17:52 Hospitalization Ordered Notes: Hospitalization Status: Inpatient Admission rn Location: Telemetry/[facility] (Inpatient) rn Condition: Stable rn Problem: an acute exacerbation rn Symptoms: have worsened rn Bed/Room Type: Standard rn Provider: Dafne Larry(04/25/23 18:46) sbKory Room Assignment: [facility](04/25/23 19:16) nestor Diagnosis - Epileptic seizures related to external causes, not intractable, without status rn epilepticus - Fever, unspecified rn Forms: - Medication Reconciliation Form rn - SBAR form rn - Leadership Thank You Letter rn Signatures: Dispatcher [employer] Sloane Johnson RN RN kl Williams, Irene RN Dimitri Turner MD MD rn Hall, Patricia, RN RN ph Brown, Sophia, PA-C PAAaron sb4 Darya Abbais RN RN nw1 Corrections: (The following items were deleted from the chart) 18:46 17:52 Janak Chapin rn sb4 19:16 17:52 devaughn baez
[2023-04-25] MEDS ORDERED: NA CHLORIDE 0.9% 50 ML ONE (18:41)
[2023-04-25] MEDS ORDERED: CEFTRIAXONE 1000 MG/VIAL ONE (18:41)
--- NOTE | 2023-04-25 18:41 | P.HP ---
Certification for Inpatient Patient admitted to: Inpatient With expected LOS: <2 Midnights Patient will require the following post-hospital care: None Practitioner: I am a practitioner with admitting privileges, knowledge of patient current condition, hospital course, and medical plan of care. Services: Services provided to patient in accordance with Admission requirements found in Title 42 Section 412.3 of the Code of Federal Regulations Patient History Date of Service: 04/25/23 Reason for admission: Seizures, UTI History of Present Illness: Ms. Boyle is a 43-year-old female with past medical history of rheumatoid arthritis, migraine, lupus, hypothyroidism, CVA with bilateral lower extremity paralysis with indwelling hernadnez catheter, hyperlipidemia, hypertension, anxiety/depression, and epilepsy who presented to the emergency room with altered mental status following an unknown amount of seizures today. Patient and report compliance with seizure medication although she does have a known history of noncompliance. She sees Dr. Morton and is prescribed Keppra and Vimpat. Additionally, she has a chronic indwelling Hernandez catheter with a current UTI in which she is taking antibiotics for. Urinary catheter has apparently not been replaced in over a month, it was replaced today in the ED, urine is pending. she also has a low-grade fever today. ED provider states that she had several seizures in the emergency department that improved after Ativan. She was additionally given a liter of fluid and 1 g of Keppra. No significant lab abnormalities noted. Her vital signs of been stable. ED provider wishes to admit patient for observation. Allergies No Known Allergies Allergy (Verified 05/05/21 14:48) Home medications list reviewed: Yes Home Medications: Midodrine HCl 2.5 mg PO TID 01/10/20 Aspirin [Aspirin EC 81 MG] 81 mg PO DAILY #30 tablet. 01/12/20 Hydroxychloroquine [Plaquenil*] 200 mg PO DAILY 05/01/21 Clopidogrel Bisulfate [Plavix*] 75 mg PO DAILY #30 tablet 05/18/21 Gabapentin 300 mg PO DAILY PRN 11/07/21 Rosuvastatin [Crestor*] 10 mg PO BEDTIME 11/07/21 Lacosamide [Vimpat*] 50 mg PO BID #60 tablet 03/16/22 Buspirone HCl [Buspar*] 10 mg PO TID 08/26/22 Fluoxetine HCl [Prozac] 60 mg PO DAILY 08/26/22 Levetiracetam [Keppra] 1,500 mg PO BID 08/26/22 Prazosin HCl 2 mg PO BEDTIME 08/26/22 - Past Medical/Surgical History Diabetic: No -: Seizure Disorder -: hypothyroidism -: hypotension -: lupus -: Rheumatoid arthritis -: Restless leg syndrome -: Bradycardia -: CVA -: Appendectomy -: hysterectomy -: -: Carpal tunnel surgery Psychosocial/ Personal History: patient is disabled, lives at home with her - Family History Mother -: Heart disease, Diabetes Brother -: Heart disease, Diabetes, Seizures - Social History Smoking Status: Never smoker Alcohol use: No CD- Drugs: No Caffeine use: Yes Place of Residence: Home Review of Systems 10-point ROS is otherwise unremarkable Neurological: Seizures Physical Examination - Vital Signs Temperature: 98 F Blood Pressure: 93/57 Pulse: 63 Respirations: 15 Pulse Ox (%): 100 - Physical Exam General: Alert, In no apparent distress, Other HEENT: Atraumatic, EOMI, Sclerae nonicteric Neck: Supple, JVD not distended Respiratory: Clear to auscultation bilaterally, Normal air movement Cardiovascular: Regular rate/rhythm, Normal S1 S2 Gastrointestinal: Normal bowel sounds, No tenderness Musculoskeletal: No tenderness Integumentary: No rashes Neurological: Normal speech, Sensation intact, Other (post ictal) Urinary: Hernandez catheter - Studies Laboratory Data (last 24 hrs) 04/25/23 04/25/23 04/25/23 16:31 16:31 16:31 WBC 5.80 Hgb 11.7 L Hct 33.9 L Plt Count 201 PT 11.2 INR 1.02 APTT 26.7 Sodium 141 Potassium 3.6 BUN < 3 L Creatinine 0.73 Glucose 100 Total Bilirubin 0.2 AST 14 L ALT 19 Alkaline Phosphatase 80 Microbiology Data (last 24 hrs): 04/25/23 16:35 Throat Group A Streptococcus Rapid Screen - Final 04/25/23 16:35 Nasopharnyx Influenza Type A Antigen Screen - Final 04/25/23 16:35 Nasopharnyx Influenza Type B Antigen Screen - Final Assessment and Plan - Problems (Diagnosis) (1) Seizure disorder Current Visit: Yes Status: Chronic (2) UTI (urinary tract infection) Current Visit: Yes Status: Acute Qualifiers: Urinary tract infection type: catheter-associated UTI Indwelling urinary catheter type: indwelling urethral catheter Encounter type: initial encounter Qualified Code(s): T83.511A - Infection and inflammatory reaction due to indwelling urethral catheter, initial encounter; N39.0 - Urinary tract infect ion, site not specified (3) SLE (systemic lupus erythematosus) Current Visit: Yes Status: Chronic Qualifiers: Systemic lupus erythematosus type: unspecified Systemic lupus erythematosus organ involvement: unspecified Qualified Code(s): M32.9 - Systemic lupus erythematosus, unspecified (4) Hypothyroidism Current Visit: Yes Status: Chronic Qualifiers: Hypothyroidism type: unspecified Qualified Code(s): E03.9 - Hypothyroidism, unspecified (5) Rheumatoid arthritis Current Visit: Yes Status: Chronic Qualifiers: Rheumatoid arthritis location: unspecified site Rheumatoid factor presence: unspecified presence Qualified Code(s): M06.9 - Rheumatoid arthritis, unspecified - Plan Patient has been in for further management of recurrent seizures. Loaded with Keppra in the ED. Continue home seizure medications. Sees Dr. Morton outpatient, has been consulted. Has a current UTI and has been on antibiotics, current UA pending. Continue IV hydration. Seizure precautions in place. Monitor and replete electrolytes per protocol. Reconcile and continue home medications. Lovenox for VTE prophylaxis. Full code. Discharge Plan: Home Plan to discharge in: 48 Hours - Advance Directives Does patient have a Living Will: No Does patient have a Durable POA for Healthcare: No - Code Status/Comfort Care Code Status Assessed: Yes Code Status: Full Code Physician Review: Patient Assessed, Agree with Above Assessment and Plan Critical Care: No Time Spent Managing Pts Care (In Minutes): 50
[2023-04-25 22:07] LABS: Urine Bacteria <20 /HPF (<20); Urine Bilirubin NEGATIVE (Negative); Urine Blood Trace (Negative); Urine Clarity Turbid (Clear); Urine Color Yellow (Yellow); Urine Crystals Unidentified Few /HPF (None Seen); Urine Glucose NEGATIVE (Negative); Urine Mucus Slight /HPF (None Seen); Urine Protein 1+ (Negative); Urine Urobilinogen 1+ (Normal)
[2023-04-25 22:12] LABS: Barbiturates NEGATIVE (NEGATIVE); Benzodiazepines POSITIVE (NEGATIVE); Cocaine NEGATIVE (NEGATIVE); METHAMPHETAM NEGATIVE (NEGATIVE); Methadone NEGATIVE (NEGATIVE); Opiates NEGATIVE (NEGATIVE); Phencyclidine NEGATIVE (NEGATIVE); THC Cannibis NEGATIVE (NEGATIVE)
[2023-04-25 23:21] VITALS: BMI 26.6
[2023-04-25] MEDS ORDERED: ACETAMINOPHEN 325 MG TABLET PO PRN (23:34)
[2023-04-25] MEDS ORDERED: ONDANSETRON 4 MG/2 ML VIAL IV PRN (23:34)
[2023-04-26] MEDS: levETIRAcetam 500 MG TAB PO SCH ×2 (00:11→09:04)
[2023-04-26] MEDS: MIDODRINE HCL 5 MG TABLET PO SCH ×3 (00:12→14:07)
[2023-04-26] MEDS: LACOSAMIDE 50 MG TABLET PO SCH ×2 (00:13→09:03)
[2023-04-26] MEDS: NA CHLORIDE 0.9% 1,000 ML IV SCH ×2 (00:19→14:07)
[2023-04-26 04:56] LABS: Absolute Lymphocytes (CBC) 1.7 K/uL (0.7-4.9); Hematocrit 31.9 % (36.0-45.0); Lymphocytes % 29.8 % (15.3-44.8); MCV 88.8 fL (80-100); MPV 8.1 fL (7.6-11.3); Platelets 192 thou/uL (152-406)
[2023-04-26 05:09] LABS: Magnesium 2.5 mg/dL (1.6-2.4); Phosphorus 3.2 mg/dL (2.5-4.9); Potassium 3.7 mEq/L (3.5-5.1)
[2023-04-26] MEDS ORDERED: SMZ./TMP. 800/160 MG TABLET PO SCH (09:00)
[2023-04-26] MEDS ORDERED: ENOXAPARIN 40 MG/0.4 ML SQ SCH (09:00)
[2023-04-26] MEDS ORDERED: levoFLOXacin 500 MG TAB PO SCH (09:00)
[2023-04-26] MEDS: NITROFURAN MACRO 100 MG CAP PO SCH ×2 (09:03→16:00)
[2023-04-26 10:15] VITALS: O2SAT 97
[2023-04-26] MEDS ORDERED: POTASSIUM CL SA 10 MEQ TAB PO ONE (16:00)
[2023-04-26 16:18] VITALS: BP 132/84; TEMP 98.9
== END 2023-04-26 16:33 | disposition home or self-care (01) | DRG 699 ==
LOC: ER 16:11 → ERHOLD 18:35 → 4TH 21:15
PROVIDERS: ADMIT Hospitalist; ATTEND Hospitalist
DX: T83.511A Infection and inflammatory reaction due to indwelling urethral catheter, initial encounter (principal); G40.509 Epileptic seizures related to external causes, not intractable, without status epilepticus; N39.0 Urinary tract infection, site not specified; I10 Essential (primary) hypertension; E03.9 Hypothyroidism, unspecified; G25.81 Restless legs syndrome; M32.9 Systemic lupus erythematosus, unspecified; M06.9 Rheumatoid arthritis, unspecified; E78.00 Pure hypercholesterolemia, unspecified; Z90.49 Acquired absence of other specified parts of digestive tract; Z79.52 Long term (current) use of systemic steroids; Z11.52 Encounter for screening for COVID-19; Z86.73 Personal history of transient ischemic attack (TIA), and cerebral infarction without residual deficits; Z79.82 Long term (current) use of aspirin; Z79.899 Other long term (current) drug therapy; Z90.710 Acquired absence of both cervix and uterus; Y84.6 Urinary catheterization as the cause of abnormal reaction of the patient, or of later complication, without mention of misadventure at the time of the procedure
CPT/HCPCS: 36415; 51702; 71045; 80048; 80053; 80307; 81001; 83605; 83735; 84100; 85025; 85610; 85730; 87040; 87070; 87081; 87086; 87088; 87804; 87811; 96365; 96375; 99285; J0696; J1650; J1953; J7030

== ENCOUNTER → 2023-06-05 | Emergency (ER) | payer OTHER, SELFPAY ==
[~2023-06-05] MED LIST changes: +HYDROCODONE/APAP 5/325 MG TAB ONE; -NALOXONE HCL 2 MG/2 ML VIAL ONE
--- NOTE | 2023-06-05 19:18 | RAD REPORT ---
EXAM DESCRIPTION: Shoulder Right 2 View - 06/05/2023 6:42 pm CLINICAL HISTORY: PAIN COMPARISON: No comparisons TECHNIQUE: Internal and external rotation views of the right shoulder were obtained. FINDINGS: There is no fracture or dislocation. AC joint is normal in appearance. No acute or suspici ous findings. IMPRESSION: Negative two-view right shoulder examination.
--- NOTE | 2023-06-05 19:55 | ER ---
Nurse's Notes [facility] Name: Naz Boyle Age: 43 yrs Sex: Female : 1980 Arrival Date: 06/05/2023 Time: 17:18 Bed 20 Private MD: Diagnosis: Shoulder sprain Presentation: 06/05 17:27 Chief complaint: Patient states: Right shoulder pain since yesterday. Wheelchair bound. nj1 Patient states her shoulder pops out most of the time when she transfers or gets picked up by but once it "pops back in" pain resolves, however, it has been hurting ever since yesterday. Coronavirus screen: Vaccine status: Patient reports being unvaccinated. Ebola Screen: Patient denies travel to an Ebola-affected area in the 21 days before illness onset. Initial Sepsis Screen: Does the patient meet any 2 criteria? No. Patient's initial sepsis screen is negative. Does the patient have a suspected source of infection? No. Patient's initial sepsis screen is negative. Risk Assessment: Do you want to hurt yourself or someone else? Patient reports no desire to harm self or others. Onset of symptoms was June 04, 2023. 17:27 Method Of Arrival: Wheelchair nj1 17:27 Acuity: MIGUEL 3 nj1 Historical: - Allergies: 17:31 Prednisone; nj1 - PMHx: 17:31 BRADYCARDIA; CVA; Hypercholesterolemia; hypotension; Hypothyroidism; Lupus nj1 erythematosus; Migraine; PERIPHERAL NEUROPATHY; RA; RLS; Seizure; SVT; Anxiety; PTSD; - PSHx: 17:31 Appendectomy; Cholecystectomy; hysterectomy; Carpal tunnel luis miguel; section; nj1 section; - Immunization history:: Client reports having NOT received the Covid vaccine. - Social history:: Smoking status: Patient reports the use of cigarette tobacco products, smokes one-half pack cigarettes per day, Reported history of juuling and/or vaping. Screenin:18 [facility] ED Fall Risk Assessment (Adult) History of falling in the last 3 months, nw1 including since admission Yes- fall prone (multiple falls) (3 pts) Confusion or Disorientation No (0 pts) Intoxicated or Sedated No (0 pts) Impaired Gait Yes (1 pt) Mobility Assist Device Used Yes (1 pt) Altered Elimination Yes (1 pt) Score/Fall Risk Level 3 or more points = High Risk Oriented to surroundings, Maintained a safe environment, Educated pt \\T\\ family on fall prevention, incl call for assistance when getting out of bed, Assessed \\T\\ reinforced patient's understanding of fall precautions, Provided non-skid footwear, Hourly rounding (assess needs \\T\\ fall precautionary measures) done, Used ambulatory aids as needed (educated on \\T\\ assisted with), Used gait belt as appropriate. Abuse screen: Denies threats or abuse. Denies injuries from another. Nutritional screening: No deficits noted. Tuberculosis screening: No symptoms or risk factors identified. Assessment: 19:18 Reassessment: Report received from LIZZY Rae. Assumed care of patient at this time. Pt nw1 noted being transferred into stretcher by S.O. Pt noted with russell catheter to gravity with yellow urine noted. Pt states right shoulder pain when "popping in and out of place when s.o. assisting in transfers since yesterday. 0 s/s of acute distress noted at this time. Will continue to monitor. 19:18 General: Appears in no apparent distress. uncomfortable, Behavior is calm, cooperative, nw1 appropriate for age. Neuro: No deficits noted. Level of Consciousness is awake, alert, obeys commands, Oriented to person, place, time, situation, Appropriate for age. Cardiovascular: Reports None Heart tones present. Respiratory: No deficits noted. Airway is patent Trachea midline Respiratory effort is even, unlabored, Respiratory pattern is regular, symmetrical. GI: No signs and/or symptoms were reported involving the gastrointestinal system. : Russell in place to gravity drainage. Musculoskeletal: 19:23 Reassessment: MD at bedside to assess. nw1 19:23 Pain: Complains of pain in right shoulder. nw1 Vital Signs: 17:27 BP 99 / 63; Pulse 65; Resp 18; Temp 98.1(O); Pulse Ox 99% on R/A; Weight 90.72 kg; nj1 Height 5 ft. 11 in. ; Pain 9/10; 17:27 Body Mass Index 27.89 (90.72 kg, 180.34 cm) nj1 17:27 Pain Scale: Adult nj1 Vinson Coma Score: 19:18 Eye Response: spontaneous(4). Motor Response: obeys commands(6). Verbal Response: nw1 oriented(5). Total: 15. ED Course: 17:22 Patient arrived in ED. mg5 17:31 Triage completed. nj1 17:33 Arm band placed on left wrist. nj1 17:37 Elida Saldana MD is Attending Physician. sp3 18:44 Shoulder Right (2 View) XRAY In Process Unspecified. EDMS 19:18 Patient has correct armband on for positive identification. Bed in low position. Call nw1 light in reach. Side rails up X2. Adult w/ patient. Provided Education on: POC. 19:18 No provider procedures requiring assistance completed. Patient did not have IV access nw1 during this emergency room visit. 19:24 Darya Abbasi, RN is Primary Nurse. nw1 Administered Medications: 19:40 Drug: HYDROcodone-acetaminophen PO 5 mg-325 mg 2 tabs PO once Route: PO; nw1 Medication: 19:18 VIS not applicable for this client. nw1 Outcome: 19:54 Discharge ordered by . sp3 19:59 Discharged to home via wheelchair, nw1 19:59 Condition: stable 19:59 Discharge instructions given to patient, Instructed on discharge instructions, follow up and referral plans. Demonstrated understanding of instructions, follow-up care, Prescriptions given X 19:59 Patient left the ED. nw1 Signatures: Dispatcher [employer] EDAK Elida Saldana MD MD sp3 Maria Larson RN RN nj1 Jyoti Mccord mg5 Darya Abbasi, LIZZY RN nw1 Corrections: (The following items were deleted from the chart) 19:33 19:25 Reassessment: Report received from LIZZY Rae. Assumed care of patient at this nw1 time. Pt noted being transferred into stretcher by S.O. Pt noted with russell catheter to gravity with yellow urine noted. Pt states right shoulder pain when "popping in and out of place when s.o. assisting in transfers since yesterday. 0 s/s of acute distress noted at this time. Will continue to monitor. nw1
--- NOTE | 2023-06-05 19:55 | EDPHYS ---
Physician Documentation [facility] Name: Naz Boyle Age: 43 yrs Sex: Female : 1980 Arrival Date: 06/05/2023 Time: 17:18 Bed 20 Private MD: ED Physician Elida Saldana HPI: 06/05 19:50 This 43 yrs old Female presents to ER via Wheelchair with complaints of Shoulder Pain. sp3 19:50 43-year-old female with history of CVA, lupus, hypertension, among others who is sp3 wheelchair-bound presents with right shoulder pain and states that her shoulder "keeps popping out and popping back in" during assisted lifts by her . Patient denies any other symptoms currently including current feelings of shoulder dislocation, right upper extremity weakness, numbness or tingling or pain. Pain is isolated to the shoulder itself. Review of systems negative for any other symptoms or injury including headache, neck pain, chest pain, back pain, shortness of breath, other extremity, or any other signs or symptoms on ROS at this time.. Historical: - Allergies: 17:31 Prednisone; nj1 - PMHx: 17:31 BRADYCARDIA; CVA; Hypercholesterolemia; hypotension; Hypothyroidism; Lupus nj1 erythematosus; Migraine; PERIPHERAL NEUROPATHY; RA; RLS; Seizure; SVT; Anxiety; PTSD; - PSHx: 17:31 Appendectomy; Cholecystectomy; hysterectomy; Carpal tunnel luis miguel; section; nj1 section; - Immunization history:: Client reports having NOT received the Covid vaccine. - Social history:: Smoking status: Patient reports the use of cigarette tobacco products, smokes one-half pack cigarettes per day, Reported history of juuling and/or vaping. ROS: 19:53 Constitutional: Negative for fever, chills, and weight loss, Eyes: Negative for injury, sp3 pain, redness, and discharge, ENT: Negative for injury, pain, and discharge, Neck: Negative for injury, pain, and swelling, Cardiovascular: Negative for chest pain, palpitations, and edema, Respiratory: Negative for shortness of breath, cough, wheezing, and pleuritic chest pain, Abdomen/GI: Negative for abdominal pain, nausea, vomiting, diarrhea, and constipation, Back: Negative for injury and pain, Skin: Negative for injury, rash, and discoloration, Neuro: Negative for headache, weakness, numbness, tingling, and seizure, Psych: Negative for depression, anxiety, suicide ideation, homicidal ideation, and hallucinations, Allergy/Immunology: Negative for hives, rash, and allergies, Endocrine: Negative for neck swelling, polydipsia, polyuria, polyphagia, and marked weight changes, Hematologic/Lymphatic: Negative for swollen nodes, abnormal bleeding, and unusual bruising, 19:53 All other systems are negative, Exam: 19:53 Constitutional: This is a well developed, well nourished patient who is awake, alert, sp3 and in no acute distress. Head/Face: Normocephalic, atraumatic. Eyes: Pupils equal round and reactive to light, extra-ocular motions intact. Lids and lashes normal. Conjunctiva and sclera are non-icteric and not injected. Cornea within normal limits. Periorbital areas with no swelling, redness, or edema. Chest/axilla: Normal chest wall appearance and motion. Nontender with no deformity. No lesions are appreciated. Cardiovascular: Regular rate and rhythm with a normal S1 and S2. No gallops, murmurs, or rubs. Normal PMI, no JVD. No pulse deficits. Respiratory: Lungs have equal breath sounds bilaterally, clear to auscultation and percussion. No rales, rhonchi or wheezes noted. No increased work of breathing, no retractions or nasal flaring. Abdomen/GI: Soft, non-tender, with normal bowel sounds. No distension or tympany. No guarding or rebound. No evidence of tenderness throughout. Back: No spinal tenderness. No costovertebral tenderness. Full range of motion. Skin: Warm, dry with normal turgor. Normal color with no rashes, no lesions, and no evidence of cellulitis. 19:53 Musculoskeletal/extremity: Right shoulder full range of motion present. Distal neurovascular exam is normal. Clinically no shoulder dislocation is present.. Vital Signs: 17:27 BP 99 / 63; Pulse 65; Resp 18; Temp 98.1(O); Pulse Ox 99% on R/A; Weight 90.72 kg; nj1 Height 5 ft. 11 in. ; Pain 9/10; 17:27 Body Mass Index 27.89 (90.72 kg, 180.34 cm) [facility] 17:27 Pain Scale: Adult nj1 Homero Coma Score: 19:18 Eye Response: spontaneous(4). Motor Response: obeys commands(6). Verbal Response: nw1 oriented(5). Total: 15. MDM: 17:47 Patient medically screened. sp3 19:53 Data reviewed: vital signs, nurses notes, radiologic studies. ED course: Clinically sp3 there is no shoulder dislocation or other fracture or distal upper extremity injury. X-ray demonstrates normal anatomy. I have advised patient on proper lifting technique and we will administer pain medication p.o. and safely discharge patient home to PCP follow-up as needed.. 06/05 17:47 Order name: Shoulder Right (2 View) XRAY; Complete Time: 19:20 sp3 Administered Medications: 19:40 Drug: HYDROcodone-acetaminophen PO 5 mg-325 mg 2 tabs PO once Route: PO; nw1 Disposition Summary: 06/05/23 19:54 Discharge Ordered Notes: Location: Home sp3 Condition: Stable sp3 Diagnosis - Shoulder sprain sp3 Followup: sp3 - With: Private Physician - When: Upon discharge from the Emergency Department - Reason: Continuance of care Discharge Instructions: - Discharge Summary Sheet sp3 - Shoulder Sprain sp3 Forms: - Medication Reconciliation Form sp3 - Thank You Letter sp3 - Antibiotic Education sp3 - Prescription Opioid Use sp3 - Patient Portal Instructions sp3 - Leadership Thank You Letter sp3 Signatures: Dispatcher [employer] Elida Li MD MD sp3 Maria Larson RN RN nj1 Darya Abbasi RN RN nw1
[2023-06-06 01:36] VITALS: BP 99/63; TEMP 98.1; O2SAT 99
== END ==
LOC: ER 17:18
DX: S43.401A Unspecified sprain of right shoulder joint, initial encounter (principal); F17.210 Nicotine dependence, cigarettes, uncomplicated; Z88.8 Allergy status to other drugs, medicaments and biological substances
CPT/HCPCS: 99283

== ENCOUNTER → 2023-06-19 | Emergency (ER) | payer OTHER ==
[~2023-06-19] MED LIST changes: +CEFTRIAXONE 1000 MG/VIAL ONE; -HYDROCODONE/APAP 5/325 MG TAB ONE; +NA CHLORIDE 0.9% 1,000 ML ONE
[2023-06-19 18:47] LABS: Absolute Lymphocytes (CBC) 1.8 K/uL (0.7-4.9); Hematocrit 35.1 % (36.0-45.0); Lymphocytes % 23.1 % (15.3-44.8); MPV 7.9 fL (7.6-11.3); Platelets 211 thou/uL (152-406); RBC Red Blood Cell Count 3.99 M/uL (3.86-4.86)
[2023-06-19 19:03] LABS: Albumin 3.6 g/dL (3.4-5.0); Bilirubin Total 0.2 mg/dL (0.2-1.0); Potassium 4.1 mEq/L (3.5-5.1); Protein, Total 7.9 g/dL (6.4-8.2)
[2023-06-19 19:10] LABS: Specific Gravity 1.005 (1.005-1.030)
[2023-06-19 19:14] LABS: Specific Gravity 1.005 (1.005-1.030); Urine Bacteria <20 /HPF (<20); Urine Bilirubin NEGATIVE (Negative); Urine Blood Trace (Negative); Urine Clarity Turbid (Clear); Urine Color Colorless (Yellow); Urine Glucose NEGATIVE (Negative); Urine Protein NEGATIVE (Negative); Urine Urobilinogen Normal (Normal)
--- NOTE | 2023-06-19 20:41 | RAD REPORT ---
EXAM DESCRIPTION: CT - Stone Protocol - 06/19/2023 7:55 pm CLINICAL HISTORY: Abdominal pain. Flank pain COMPARISON: May 2022 and 2020 TECHNIQUE: Computed axial tomography of the abdomen pelvis was obtained without oral or IV contrast. Lack of IV and oral contrast limits evaluation of solid organs, appendix, bowel, and vessels. Panda l reformatted images were obtained and reviewed. All CT scans are performed using dose optimization technique as appropriate and may include automated exposure control or mA/KV adjustment according to patient size. FINDINGS: A renal calculus is not seen. An ureteral calculus is not noted. A bladder calculus is not present. No hydronephrosis. A Hernandez catheter is present within the bladder. Small amount of air is p resent within the bladder. There is minimal stranding within the adjacent fat. The liver, spleen, pancreas and adrenals appear grossly normal There is no evidence of diverticulitis. Cholecystectomy. Bilateral adnexal structures are unchanged from 2020 and presumably benign. Hysterectomy Small umbilical hernia. IMPRESSION: Negative for a genitourinary calculus Air within the bladder can be a normal finding in a patient with a Hernandez catheter. Infection can also have this appearance. There is mild stranding adjacent to the bladder probably indicating mild infla mmation
--- NOTE | 2023-06-19 21:18 | EDPHYS ---
Physician Documentation [facility] Name: Naz Boyle Age: 43 yrs Sex: Female : 1980 Arrival Date: 06/19/2023 Time: 17:34 Bed 15 Private MD: ED Physician Dimitri Hawkins HPI: 06/19 17:57 This 43 yrs old Female presents to ER via Unassigned with complaints of POSSIBLE UTI cp /CATH REPLACEMENT. 17:57 The patient presents with urinary symptoms, dysuria, hematuria. cp 17:57 Onset: The symptoms/episode began/occurred 3 day(s) ago. Associated signs and symptoms: cp Pertinent positives: fatigue. 17:58 Patient is a 43-year-old female who presents to the emergency department with concern cp for urinary tract infection. She has a Russell catheter in place that she has had for the past 2 months and reports over the last 3 days she has noticed small amount of hematuria, she has had dysuria and some suprapubic discomfort. Denies any fevers, and no nausea and/or vomiting. [employer] DES[employer]: 19:00 LMP N/A - Hysterectomy, Not me1 Historical: - Allergies: 19:00 Prednisone; me1 - PMHx: 19:00 Anxiety; SVT; BRADYCARDIA; CVA; Seizure; Hypercholesterolemia; hypotension; me1 Hypothyroidism; Lupus erythematosus; Migraine; PERIPHERAL NEUROPATHY; PTSD; RA; RLS; - PSHx: 19:00 Appendectomy; Carpal tunnel luis miguel; section; Cholecystectomy; hysterectomy; me1 - Immunization history:: Adult Immunizations up to date. - Social history:: Smoking status: Patient reports the use of cigarette tobacco products, smokes one pack cigarettes per day. ROS: 18:00 Constitutional: Positive for fatigue, Negative for body aches, chills, fever, poor PO cp intake, 18:00 Eyes: Negative for injury, pain, redness, and discharge, cp 18:00 ENT: Negative for drainage from ear(s), ear pain, sore throat, difficulty swallowing, difficulty handling secretions, 18:00 Respiratory: Negative for cough, shortness of breath, wheezing, 18:00 Abdomen/GI: Positive for abdominal pain, of the suprapubic area, Negative for vomiting, diarrhea, constipation, 18:00 Back: Negative for pain at rest, pain with movement, 18:00 : Positive for hematuria, burning with urination, Negative for vaginal bleeding, vaginal discharge, 18:00 Neuro: Negative for altered mental status, dizziness, headache, 18:00 All other systems are negative, Exam: 18:05 Constitutional: The patient appears in no acute distress, alert, awake, non-toxic, well cp developed, well nourished, 18:05 Head/Face: Normocephalic, atraumatic. cp 18:05 Eyes: Periorbital structures: appear normal, Conjunctiva: normal, no exudate, no injection, Sclera: no appreciated abnormality, Lids and lashes: appear normal, bilaterally, 18:05 ENT: External ear(s): are unremarkable, Nose: is normal, Mouth: Lips: moist, Oral mucosa: moist, Posterior pharynx: Airway: no evidence of obstruction, patent, 18:05 Chest/axilla: Inspection: normal, 18:05 Cardiovascular: Rate: normal, Rhythm: regular, 18:05 Respiratory: the patient does not display signs of respiratory distress, Respirations: normal, no use of accessory muscles, no retractions, labored breathing, is not present, Breath sounds: are clear throughout, no decreased breath sounds, no stridor, no wheezing, 18:05 Abdomen/GI: Inspection: abdomen appears normal, Bowel sounds: active, all quadrants, Palpation: soft, in all quadrants, mild abdominal tenderness, in the suprapubic area, rebound tenderness, is not appreciated, involuntary guarding, is not appreciated, 18:05 Back: CVA tenderness, is absent, Vital Signs: 17:50 BP 112 / 78; Pulse 69; Resp 16; Pulse Ox 98% on R/A; Weight 90.72 kg; Height 5 ft. 11 me1 in. ; 17:51 BP 112 / 78; Pulse 73; Resp 16; Pulse Ox 96% on R/A; me1 19:00 BP 108 / 62; Pulse 65; Resp 17; Pulse Ox 100% on R/A; me1 20:00 BP 101 / 70; Pulse 68; Resp 18; Pulse Ox 98% on R/A; me1 17:50 Body Mass Index 27.89 (90.72 kg, 180.34 cm) me1 MDM: 17:54 Patient medically screened. cp 21:16 Data reviewed: vital signs, nurses notes, lab test result(s), radiologic studies, CT cp scan. 21:16 Differential diagnosis: urinary tract infection, sepsis, kidney stone. I considered the cp following discharge prescriptions or medication management in the emergency department Medications were administered in the Emergency Department. See MAR. Counseling: I had a detailed discussion with the patient and/or guardian regarding the historical points, exam findings, and any diagnostic results supporting the discharge/admit diagnosis, lab results, radiology results, to return to the emergency department if symptoms worsen or persist or if there are any questions or concerns that arise at home. Response to treatment: the patient's symptoms have mildly improved after treatment, and as a result, I will discharge patient. 06/19 18:01 Order name: CBC with Diff; Complete Time: 18:53 06/19 18:53 Interpretation: Normal except: HCT 35.1. 06/19 18:01 Order name: CMP; Complete Time: 19:18 06/19 19:18 Interpretation: GLOB 4.3; A/G 0.8; Reviewed. 06/19 18:01 Order name: Lipase; Complete Time: 19:18 06/19 18:01 Order name: Test, Urine; Complete Time: 19:18 06/19 18:01 Order name: Urinalysis w/ reflexes; Complete Time: 19:18 06/19 19:18 Interpretation: Normal except: [facility] Turbid; UBLD Trace; UESTR 250; UWBC 10-20; URBC cp 5-10. 06/19 18:01 Order name: Lactate w/ 2H reflex if indic.; Complete Time: 19:18 06/19 19:20 Order name: Urine Culture [facility] 06/19 19:19 Order name: CT Stone Protocol; Complete Time: 21:10 06/19 21:10 Interpretation: Report reviewed. 06/19 18:01 Order name: IV Saline Lock; Complete Time: 19:13 06/19 18:01 Order name: Labs collected and sent; Complete Time: 19:13 06/19 18:01 Order name: Russell: please replace russell; Complete Time: 19:13 06/19 18:54 Order name: Vital Signs; Complete Time: 19:13 cp Administered Medications: 18:51 Drug: NS 0.9% IV 1000 ml IV at 1000 ml/hr Per protocol; 1000 mL bolus Route: IV; Rate: me1 1000 ml/hr; Site: right wrist; 20:27 Follow up: IV Status: Completed infusion; IV Intake: 1000ml me1 19:33 Drug: Rocephin IV 1 grams IV at calculated rate once; Given slow IV push per pharmacy me1 instructions Route: IV; Rate: calculated rate; Site: right wrist; 20:26 Follow up: Response: No adverse reaction; IV Status: Completed infusion me1 Disposition Summary: 06/19/23 21:17 Discharge Ordered Notes: Location: Home cp Problem: new cp Symptoms: have improved cp Condition: Stable cp Diagnosis - Acute cystitis cp Followup: cp - With: Junior Nguyen MD - When: 5 - 6 days - Reason: Recheck today's complaints Discharge Instructions: - Discharge Summary Sheet cp - Urinary Tract Infection, Adult cp - Interstitial Cystitis cp Forms: - Medication Reconciliation Form cp - Thank You Letter cp - Antibiotic Education cp - Prescription Opioid Use cp - Patient Portal Instructions cp - Leadership Thank You Letter cp Prescriptions: - Pyridium 200 mg Oral tablet - take 1 tablet ORAL route every 8 hours for 3 days; 6 tablet; Refills: 0, cp Product Selection Permitted - cefpodoxime 200 mg Oral tablet - take 1 tablet ORAL route every 12 hours for 7 days with food; 14 tablet; cp Refills: 0, Product Selection Permitted Addendum: 06/22/2023 18:57 Co-signature as Attending Physician, Dimitri Hawkins MD I reviewed the patient's care r n provided by the Advanced Practice Provider and agree with the diagnosis and treatment plan. Signatures: Dispatcher [employer] Dimitri Duque MD MD rn Page, Corey, PA PA cp Erlinda Rubio RN RN me1 Corrections: (The following items were deleted from the chart) 06/19 19:02 19:00 Allergies: No Known Allergies; me1 me1
--- NOTE | 2023-06-19 21:18 | ER ---
Nurse's Notes [facility] Name: Naz Boyle Age: 43 yrs Sex: Female : 1980 Arrival Date: 06/19/2023 Time: 17:34 Bed 15 Private MD: Diagnosis: Acute cystitis Presentation: 06/19 17:50 Chief complaint: Patient states: concerned about urinary catheter tube and bag changing me1 colors and has had a few blood clots in the bag. Catheter has been in for 2 months and patient c/o feeling pressure from the tube in her bladder. Coronavirus screen: Vaccine status: Patient reports being unvaccinated. Ebola Screen: No symptoms or risks identified at this time. Initial Sepsis Screen: Does the patient meet any 2 criteria? No. Patient's initial sepsis screen is negative. Does the patient have a suspected source of infection? Yes: Catheter related infection (Hernandez/dialysis/PICC/central line). Risk Assessment: Do you want to hurt yourself or someone else? Patient reports no desire to harm self or others. Onset of symptoms is unknown. 17:50 [place] [facility] Acuity: MIGUEL 4 me1 Triage Assessment: 19:00 General: Appears uncomfortable, ill, well groomed, well developed, well nourished, me1 Behavior is calm, cooperative, appropriate for age, Reports worried about urinary catheter tube and drainage bag changing colors. Reported blood clots in drainage bag. c/o pressure from tube in bladder. General: Reports. Pain: Denies pain. Neuro: Level of Consciousness is awake, alert, obeys commands, Oriented to person, place, time, situation, Appropriate for age. Cardiovascular: Capillary refill < 3 seconds Patient's skin is warm and dry. Respiratory: Airway is patent Trachea midline Respiratory effort is even, unlabored, Respiratory pattern is regular, symmetrical. : Hernandez in place to gravity drainage Urine is clear. 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 - Social history:: Smoking status: Patient reports the use of cigarette tobacco products, smokes one pack cigarettes per day. Screenin:11 [facility] ED Fall Risk Assessment (Adult) History of falling in the last 3 months, me1 including since admission No falls in past 3 months (0 pts) Confusion or Disorientation No (0 pts) Intoxicated or Sedated No (0 pts) Impaired Gait No (0 pts) Mobility Assist Device Used No (0 pt) Altered Elimination Yes (1 pt) Score/Fall Risk Level 0 - 2 = Low Risk Maintained a safe environment, Provided non-skid footwear, Hourly rounding (assess needs \T\ fall precautionary measures) done. Abuse screen: Denies threats or abuse. Nutritional screening: No deficits noted. Tuberculosis screening: No symptoms or risk factors identified. Assessment: 18:00 General: See triage assessment. . me1 Vital Signs: 17:50 BP 112 / 78; Pulse 69; Resp 16; Pulse Ox 98% on R/A; Weight 90.72 kg; Height 5 ft. 11 me1 in. ; 17:51 BP 112 / 78; Pulse 73; Resp 16; Pulse Ox 96% on R/A; me1 19:00 BP 108 / 62; Pulse 65; Resp 17; Pulse Ox 100% on R/A; me1 20:00 BP 101 / 70; Pulse 68; Resp 18; Pulse Ox 98% on R/A; me1 17:50 Body Mass Index 27.89 (90.72 kg, 180.34 cm) me1 ED Course: 17:42 Patient arrived in ED. kj1 17:44 Pramod Leung PA is PHCP. cp 17:44 Dimitri Hawkins MD is Attending Physician. cp 18:40 Erlinda Rubio, LIZZY is Primary Nurse. me1 18:40 Hernandez cath inserted, using sterile technique, by az, balloon inflated, Patient jg11 tolerated well. 18:51 Urinalysis w/ reflexes Sent. me1 18:51 Test, Urine Sent. me1 18:59 Triage completed. me1 19:00 Arm band placed on Patient placed in an exam room. me1 19:11 No provider procedures requiring assistance completed. me1 19:11 Patient has correct armband on for positive identification. Bed in low position. Call me1 light in reach. Side rails up X2. Provided Education on: POC. Verbalized understanding. . 19:13 Urinalysis w/ reflexes Sent. me1 19:57 CT Stone Protocol In Process Unspecified. EDMS 21:19 Junior Nguyen MD is Referral Physician. cp 21:29 IV discontinued, intact, bleeding controlled, No redness/swelling at site. Pressure me1 dressing applied. Administered Medications: 18:51 Drug: NS 0.9% IV 1000 ml IV at 1000 ml/hr Per protocol; 1000 mL bolus Route: IV; Rate: me1 1000 ml/hr; Site: right wrist; 20:27 Follow up: IV Status: Completed infusion; IV Intake: 1000ml me1 19:33 Drug: Rocephin IV 1 grams IV at calculated rate once; Given slow IV push per pharmacy me1 instructions Route: IV; Rate: calculated rate; Site: right wrist; 20:26 Follow up: Response: No adverse reaction; IV Status: Completed infusion me1 Medication: 19:11 VIS not applicable for this client. me1 Intake: 20:27 IV: 1000ml; Total: 1000ml. me1 Outcome: 21:17 Discharge ordered by MD. cp 21:29 Discharged to home via wheelchair, with significant other, me1 21:29 Condition: stable 21:29 Discharge instructions given to patient, significant other, Instructed on discharge instructions, follow up and referral plans. medication usage, Demonstrated understanding of instructions, follow-up care, medications, Prescriptions given X 2, 21:31 Patient left the ED. me1 Signatures: Dispatcher [employer] EDNC Pramod Leung PA PA cp Jocelyn Olsen kj1 Erlinda Rubio RN RN me1 Alek Fletcher jg11 Corrections: (The following items were deleted from the chart) 19:02 19:00 Allergies: No Known Allergies; me1 me1
[2023-06-19 23:10] VITALS: BP 101/70; O2SAT 98
== END ==
LOC: ER 17:34
DX: N30.00 Acute cystitis without hematuria (principal); E03.9 Hypothyroidism, unspecified; M32.9 Systemic lupus erythematosus, unspecified; E78.00 Pure hypercholesterolemia, unspecified; I95.9 Hypotension, unspecified; G62.9 Polyneuropathy, unspecified; G25.81 Restless legs syndrome; F17.210 Nicotine dependence, cigarettes, uncomplicated; Z86.73 Personal history of transient ischemic attack (TIA), and cerebral infarction without residual deficits; Z88.8 Allergy status to other drugs, medicaments and biological substances
CPT/HCPCS: 96365; 96361; 87088; 85025; 81001; 87086; 36415; 81025; 83605; 87077; 87186; 83690; 80053; 76377; 74176; 99284; J7030; J0696

== ENCOUNTER → 2023-06-28 | Emergency (ER) | payer OTHER ==
[~2023-06-28] MED LIST changes: +ASPIRIN 81 MG CHEWABLE TABLET ONE; -CEFTRIAXONE 1000 MG/VIAL ONE; +FUROSEMIDE 20 MG/ 2ML VIAL ONE; -NA CHLORIDE 0.9% 1,000 ML ONE
[2023-06-28 16:27] LABS: Protime INR 1.07
--- NOTE | 2023-06-28 16:27 | RAD REPORT ---
EXAM DESCRIPTION: RAD - Chest Single View - 06/28/2023 4:01 pm CLINICAL HISTORY: CHEST PAIN Chest pain. COMPARISON: Chest Single View dated 04/25/2023; Chest Single View dated 12/20/2022; Chest Single View dated 09/29/2022; Chest Single View dated 08/30/2022 FINDINGS: Portable technique limits examination quality. Interstitial markings are mildly prominent which may indicate mild interstitial pulmonary edema or vi ral infection. The heart is mildly prominent in size. No displaced fractures.
[2023-06-28 16:29] LABS: Absolute Lymphocytes (CBC) 1.9 K/uL (0.7-4.9); Hematocrit 31.7 % (36.0-45.0); Lymphocytes % 24.8 % (15.3-44.8); MCV 88.6 fL (80-100); MPV 8.4 fL (7.6-11.3); Platelets 179 thou/uL (152-406); RBC Red Blood Cell Count 3.57 M/uL (3.86-4.86)
[2023-06-28 16:43] LABS: Bilirubin Direct 0.1 mg/dL (0-0.2); Bilirubin Indirect, Calculated 0.2 mg/dL (0.2-0.8); Bilirubin Total 0.3 mg/dL (0.2-1.0); Magnesium 2.1 mg/dL (1.6-2.4); Protein, Total 6.7 g/dL (6.4-8.2); Troponin High Sensitivity 3.4 pg/mL (<58.9)
--- NOTE | 2023-06-28 19:04 | ER ---
Nurse's Notes [facility] Name: Naz Boyle Age: 43 yrs Sex: Female : 1980 Arrival Date: 06/28/2023 Time: 15:40 Bed 8 Private MD: Diagnosis: Chest pain, unspecified;Fluid overload;Anemia, unspecified Presentation: 06/28 15:55 Chief complaint: Patient states: Left sided chest pain that radiates down left arm cm10 onset this morning. Pt reports that she is also having bilateral leg and feet swelling. Coronavirus screen: Vaccine status: Patient reports being unvaccinated. Client denies travel out of the [place] in the last 14 days. Ebola Screen: Patient denies travel to an Ebola-affected area in the 21 days before illness onset. No symptoms or risks identified at this time. Initial Sepsis Screen: Does the patient meet any 2 criteria? No. Patient's initial sepsis screen is negative. Does the patient have a suspected source of infection? No. Patient's initial sepsis screen is negative. Risk Assessment: Do you want to hurt yourself or someone else? Patient reports no desire to harm self or others. Onset of symptoms was June 28, 2023. 15:55 Method Of Arrival: Wheelchair cm10 15:55 Acuity: MIGUEL 2 cm10 Triage Assessment: 16:14 General: Appears uncomfortable, Behavior is calm, cooperative. Pain: Complains of pain tl4 in chest Pain does not radiate. Quality of pain is described as sharp, stabbing, Pain began suddenly, Alleviated by nothing. EENT: No deficits noted. No signs and/or symptoms were reported regarding the EENT system. Neuro: No deficits noted. Cardiovascular: Reports chest pain, shortness of breath, Denies diaphoresis, fatigue, nausea, palpitations, syncope. Respiratory: Reports shortness of breath. GI: No deficits noted. No signs and/or symptoms were reported involving the gastrointestinal system. : No deficits noted. No signs and/or symptoms were reported regarding the genitourinary system. Derm: No deficits noted. No signs and/or symptoms reported regarding the dermatologic system. Historical: - Allergies: 15:54 Prednisone; cm10 - PMHx: 15:54 Anxiety; BRADYCARDIA; CVA; PERIPHERAL NEUROPATHY; Seizure; RLS; RA; PTSD; Migraine; cm10 SVT; Lupus erythematosus; Hypothyroidism; Hypercholesterolemia; hypotension; Neurogenic bladder; - PSHx: 15:54 Appendectomy; section; Carpal tunnel luis miguel; Cholecystectomy; hysterectomy; cm10 section; hysterectomy; - Immunization history:: Adult Immunizations up to date. - Social history:: Smoking status: Patient reports the use of cigarette tobacco products, denies chronic smoking, but will smoke occasionally, Reported history of juuling and/or vaping. Screenin:16 [facility] ED Fall Risk Assessment (Adult) History of falling in the last 3 months, tl4 including since admission No falls in past 3 months (0 pts) Confusion or Disorientation No (0 pts) Intoxicated or Sedated No (0 pts) Impaired Gait Yes (1 pt) Mobility Assist Device Used Yes (1 pt) Altered Elimination Yes (1 pt) Score/Fall Risk Level 3 or more points = High Risk Oriented to surroundings, Maintained a safe environment, Educated pt \T\ family on fall prevention, incl call for assistance when getting out of bed, Assessed \T\ reinforced patient's understanding of fall precautions, Provided non-skid footwear, Hourly rounding (assess needs \T\ fall precautionary measures) done, Used ambulatory aids as needed (educated on \T\ assisted with), Used gait belt as appropriate Utilized family, sitter, or virtual networking technology instructor as indicated. Abuse screen: Denies threats or abuse. Denies injuries from another. Nutritional screening: No deficits noted. Tuberculosis screening: No symptoms or risk factors identified. Assessment: 16:15 Reassessment: No changes from previously documented assessment. Patient and/or family tl4 updated on plan of care and expected duration. Pain level reassessed. Patient is alert, oriented x 3, equal unlabored respirations, skin warm/dry/pink. Pain: Complains of pain in chest Pain does not radiate. Pain began suddenly, 4 hours ago. Neuro: No deficits noted. Cardiovascular: Reports chest pain. 19:15 Reassessment: Patient appears in no apparent distress at this time. No changes from km8 previously documented assessment. Patient and/or family updated on plan of care and expected duration. Pain level reassessed. Patient is alert, oriented x 3, equal unlabored respirations, skin warm/dry/pink. Vital Signs: 15:55 BP 104 / 71; Pulse 70; Resp 16; Temp 98.2; Pulse Ox 98% on R/A; Weight 90.72 kg; Height cm10 5 ft. 11 in. ; Pain 8/10; 16:16 BP 96 / 58; Pulse 78; Resp 16; Pulse Ox 98% ; tl4 16:47 BP 100 / 60; Pulse 68; Resp 18; Pulse Ox 99% on R/A; ld1 17:58 BP 116 / 71; Pulse 68; Resp 18; Pulse Ox 100% on R/A; ld1 18:46 BP 101 / 60; Pulse 68; Resp 18; Pulse Ox 99% on R/A; ld1 15:55 Body Mass Index 27.89 (90.72 kg, 180.34 cm) cm10 15:55 Pain Scale: Adult cm10 Vitals: 16:16 Cardiac Rhythm Assessment Regular Sinus rhythm. tl4 ED Course: 15:41 Patient arrived in ED. mg5 15:45 Marilyn Posada FNP-C is PHCP. snw 15:45 Elida Saldana MD is Attending Physician. snw 15:56 Triage completed. cm10 15:56 Arm band placed on Patient placed in an exam room, on a stretcher, on quality assurance monitor chassis, cm10 on pulse oximetry. 16:02 XRAY Chest (1 view) In Process Unspecified. EDMS 16:13 Basic Metabolic Panel Sent. tl4 16:13 CBC with Diff Sent. tl4 16:13 LFT's Sent. tl4 16:13 Magnesium Sent. tl4 16:13 NT PRO-BNP Sent. tl4 16:13 PT-INR Sent. tl4 16:13 Troponin HS Sent. tl4 16:13 Inserted saline lock: 20 gauge in left antecubital area, using aseptic technique. Blood tl4 collected. 16:17 Patient has correct armband on for positive identification. Placed in gown. Bed in low tl4 position. Call light in reach. Side rails up X2. Adult w/ patient. Provided Education on: ed process. Client placed on continuous cardiac and pulse oximetry monitoring. NIBP monitoring applied. compliance monitor on. Door closed. Visitors limited. Moved to private room. Warm blanket given. 17:57 Princess Hdez, LIZZY is Primary Nurse. ld1 18:28 PHCP role handed off by Marilyn Posada FNP-C sb4 18:28 [facility]int[facility]audhari [facility]. sb4 19:22 No provider procedures requiring assistance completed. km8 19:22 IV discontinued, intact, bleeding controlled, No redness/swelling at site. Pressure km8 dressing applied. Administered Medications: 15:58 Drug: Aspirin PO Chewable Tablet 324 mg PO once; 81 mg tablets x 4 Route: PO; tl4 17:37 Follow up: Response: No adverse reaction tl4 17:45 Drug: Furosemide IVP 20 mg IVP once; give over 2 minutes Route: IVP; Site: left ld1 antecubital; 19:07 Follow up: Response: No adverse reaction km8 Medication: 16:16 VIS not applicable for this client. tl4 Outcome: 19:03 Discharge ordered by MD. sb4 19:22 Discharged to home via wheelchair, with significant other, km8 19:22 Condition: good 19:22 Discharge instructions given to patient, significant other, Instructed on discharge instructions, follow up and referral plans. Demonstrated understanding of instructions, follow-up care, 19:23 Patient left the ED. km8 Signatures: Dispatcher [employer] EDMS Marilyn Posada, CUSTOMER OPERATIONS ASSOCIATE-C CUSTOMER OPERATIONS ASSOCIATE-Csnw Princess Hdez RN RN ld1 Cintia Chaudhari, HUONGC PAWilderC sb4 Cinthya Morrison, LIZZY RN cm10 Jyoti Mccord mg5 Bria Castro RN RN km8 Antonino Goldberg tl4
--- NOTE | 2023-06-28 19:04 | EDPHYS ---
Physician Documentation [facility] Name: Naz Boyle Age: 43 yrs Sex: Female : 1980 Arrival Date: 06/28/2023 Time: 15:40 Bed 8 Private MD: ED Physician Elida Saldana HPI: 06/28 16:22 This 43 yrs old Female presents to ER via Wheelchair with complaints of Chest Pain, snw Swelling. 16:22 Onset: The symptoms/episode began/occurred acutely. Associated signs and symptoms: snw Pertinent positives: edema. It is unknown whether or not the patient has had similar symptoms in the past. The patient has been recently seen by a physician:. states she was supposed to have a cardiac workup but missed her ECHO appt last week second to finances. Historical: - Allergies: 15:54 Prednisone; cm10 - PMHx: 15:54 Anxiety; BRADYCARDIA; CVA; PERIPHERAL NEUROPATHY; Seizure; RLS; RA; PTSD; Migraine; cm10 SVT; Lupus erythematosus; Hypothyroidism; Hypercholesterolemia; hypotension; Neurogenic bladder; - PSHx: 15:54 Appendectomy; section; Carpal tunnel luis miguel; Cholecystectomy; hysterectomy; cm10 section; hysterectomy; - Immunization history:: Adult Immunizations up to date. - Social history:: Smoking status: Patient reports the use of cigarette tobacco products, denies chronic smoking, but will smoke occasionally, Reported history of juuling and/or vaping. ROS: 17:00 Constitutional: Negative for fever, chills, and weight loss, Eyes: Negative for injury, snw pain, redness, and discharge, ENT: Negative for injury, pain, and discharge, Neck: Negative for injury, pain, and swelling, Respiratory: Negative for shortness of breath, cough, wheezing, and pleuritic chest pain, Abdomen/GI: Negative for abdominal pain, nausea, vomiting, diarrhea, and constipation, Back: Negative for injury and pain, : Negative for injury, bleeding, discharge, and swelling, MS/Extremity: Negative for injury and deformity, Skin: Negative for injury, rash, and discoloration, Neuro: Negative for headache, weakness, numbness, tingling, and seizure, Psych: Negative for depression, anxiety, suicide ideation, homicidal ideation, and hallucinations, 17:00 Cardiovascular: Positive for chest pain, of the left arm and chest, edema, Exam: 16:05 Head/Face: Normocephalic, atraumatic. Eyes: Pupils equal round and reactive to light, snw extra-ocular motions intact. Lids and lashes normal. Conjunctiva and sclera are non-icteric and not injected. Cornea within normal limits. Periorbital areas with no swelling, redness, or edema. ENT: Nares patent. No nasal discharge, no septal abnormalities noted. Tympanic membranes are normal and external auditory canals are clear. Oropharynx with no redness, swelling, or masses, exudates, or evidence of obstruction, uvula midline. Mucous membranes moist. Neck: Trachea midline, no thyromegaly or masses palpated, and no cervical lymphadenopathy. Supple, full range of motion without nuchal rigidity, or vertebral point tenderness. No Meningismus. Chest/axilla: Normal chest wall appearance and motion. Nontender with no deformity. No lesions are appreciated. Cardiovascular: Regular rate and rhythm with a normal S1 and S2. No gallops, murmurs, or rubs. Normal PMI, no JVD. No pulse deficits. 16:05 Respiratory: Lungs have equal breath sounds bilaterally, clear to auscultation and percussion. No rales, rhonchi or wheezes noted. No increased work of breathing, no retractions or nasal flaring but positive tachypnea. Abdomen/GI: Soft, non-tender, with normal bowel sounds. No distension or tympany. No guarding or rebound. No evidence of tenderness throughout. Back: No spinal tenderness. No costovertebral tenderness. Full range of motion. Skin: Warm, dry with normal turgor. Normal color with no rashes, no lesions, and no evidence of cellulitis. MS/ Extremity: Pulses equal, no cyanosis. Neurovascular intact. Full, normal range of motion. Neuro: Awake and alert, GCS 15, oriented to person, place, time, and situation. Cranial nerves II-XII grossly intact. Motor strength 5/5 in all extremities. Sensory grossly intact. Cerebellar exam normal. Normal gait. Psych: Awake, alert, with orientation to person, place and time. Behavior, mood, and affect are within normal limits. 16:05 Constitutional: The patient appears alert, awake, obese, Vital Signs: 15:55 BP 104 / 71; Pulse 70; Resp 16; Temp 98.2; Pulse Ox 98% on R/A; Weight 90.72 kg; Height cm10 5 ft. 11 in. ; Pain 8/10; 16:16 BP 96 / 58; Pulse 78; Resp 16; Pulse Ox 98% ; tl4 16:47 BP 100 / 60; Pulse 68; Resp 18; Pulse Ox 99% on R/A; ld1 17:58 BP 116 / 71; Pulse 68; Resp 18; Pulse Ox 100% on R/A; ld1 18:46 BP 101 / 60; Pulse 68; Resp 18; Pulse Ox 99% on R/A; ld1 15:55 Body Mass Index 27.89 (90.72 kg, 180.34 cm) cm10 15:55 Pain Scale: Adult cm10 MDM: 15:45 Patient medically screened. snw 18:08 Differential diagnosis: abnormal EKG, acute myocardial infarction, acute pericarditis, snw anxiety, congestive heart failure stable angina, unstable angina. The patient was given aspirin in the Emergency Department. YOSHI Risk Score: 1 - Recent [<24hrs] Severe Angina. Data reviewed: vital signs, nurses notes, lab test result(s), EKG, radiologic studies. I considered the following discharge prescriptions or medication management in the emergency department Medications were administered in the Emergency Department. See MAR. Historians other than the Patient: Spouse/Significant Other: . Counseling: I had a detailed discussion with the patient and/or guardian regarding the historical points, exam findings, and any diagnostic results supporting the discharge/admit diagnosis, lab results, radiology results, the need for outpatient follow up, to return to the emergency department if symptoms worsen or persist or if there are any questions or concerns that arise at home. Response to treatment: the patient's symptoms have mildly improved after treatment. Special discussion: Based on the patient's history, exam, and Dx evaluation, there is no indication for emergent intervention or inpatient Tx. It is understood by the patient/guardian that if the Sx's persist or worsen they need to return immediately for re-evaluation. Based on the history and exam findings, there is no indication for further emergent testing or inpatient evaluation. I discussed with the patient/guardian the need to see the evs tech for further evaluation of the symptoms. I discussed with the patient/guardian the need to see the primary care provider for further evaluation of the symptoms. 18:09 Transition of care: After a detail discussion of the patient's case, care is snw transferred to Cintia Chaudhari PA-C. 18:10 ED course: awaiting repeat trop. Pt voices understanding of need for follow up and plan snw of care. ECHO 05/16 normal EF. . 06/28 15:52 Order name: Basic Metabolic Panel; Complete Time: 16:48 snw 06/28 15:52 Order name: CBC with Diff; Complete Time: 16:51 snw 06/28 15:52 Order name: LFT's; Complete Time: 16:48 snw 06/28 15:52 Order name: Magnesium; Complete Time: 16:48 snw 06/28 15:52 Order name: NT PRO-BNP; Complete Time: 16:48 snw 06/28 15:52 Order name: PT-INR; Complete Time: 16:41 snw 06/28 15:52 Order name: Troponin HS; Complete Time: 16:48 snw 06/28 17:58 Order name: Troponin High Sensitivity; Complete Time: 19:03 snw 06/28 15:52 Order name: XRAY Chest (1 view); Complete Time: 16:41 snw 06/28 15:52 Order name: EKG; Complete Time: 15:52 snw 06/28 15:52 Order name: Cardiac monitoring; Complete Time: 15:55 snw 06/28 15:52 Order name: EKG - Nurse/Tech; Complete Time: 16:13 snw 06/28 15:52 Order name: IV Saline Lock; Complete Time: 16:13 snw 06/28 15:52 Order name: Labs collected and sent; Complete Time: 16:13 snw 06/28 15:52 Order name: O2 Per Protocol; Complete Time: 15:55 snw 06/28 15:52 Order name: O2 Sat Monitoring; Complete Time: 15:55 snw EC:05 Rate is 76 beats/min. Rhythm is regular. QRS [place] is Normal. QT interval is prolonged snw at 451 msec. Clinical impression: NSR w/ Non-specific ST/T Changes. Administered Medications: 15:58 Drug: Aspirin PO Chewable Tablet 324 mg PO once; 81 mg tablets x 4 Route: PO; tl4 17:37 Follow up: Response: No adverse reaction tl4 17:45 Drug: Furosemide IVP 20 mg IVP once; give over 2 minutes Route: IVP; Site: left ld1 antecubital; 19:07 Follow up: Response: No adverse reaction km8 Disposition Summary: 06/28/23 19:03 Discharge Ordered Notes: Location: Home sb4 Condition: Stable sb4 Diagnosis - Chest pain, unspecified sb4 - Fluid overload sb4 - Anemia, unspecified sb4 Followup: snw - With: Emergency Department - When: As needed - Reason: Worsening of condition Followup: snw - With: Private Physician - When: 2 - 3 days - Reason: Recheck today's complaints, Continuance of care, Re-evaluation by your physician Discharge Instructions: - Discharge Summary Sheet snw - Anemia snw - Nonspecific Chest Pain, Adult snw - Chest Wall Pain snw - Hypertension, Adult snw - Exercise Stress Test snw - Coronary Angiogram snw - How to Take Your Blood Pressure, [id number] snw - Aspirin and Your Heart snw - Form - Blood Pressure Record Sheet snw Forms: - Medication Reconciliation Form sb4 - Thank You Letter sb4 - Antibiotic Education sb4 - Prescription Opioid Use sb4 - Patient Portal Instructions sb4 - Leadership Thank You Letter sb4 Signatures: Dispatcher [employer] EDMS Marilyn Posada FNP-C FAT PURIFICATION WORKER-Csnw Princess Hdez, RN RN ld1 Cintia Chaudhari PA-C LEYDA sb4 Cinthya Morrison RN RN cm10 Logdacarmen, Antonino tl4 Bria Castro RN km8 Corrections: (The following items were deleted from the chart) 18:11 18:09 Transition of care: After a detail discussion of the patient's case, care is snw transferred to Cintia Chaudhari PA-C snw
[2023-06-28 20:02] VITALS: TEMP 98.2
[2023-06-28 20:19] VITALS: BP 101/60; O2SAT 99
--- NOTE | 2023-06-30 15:04 | EKG ---
Test Date: 2023-06-28 Test Time: 16:03:10 Radiographer Mammographer: TL MEASUREMENT RESULTS: Intervals: Rate: 76 [place]: 132 QRSD: 76 QT: 428 QTc: 481 [place]: P: 45 [place]: 132 QRS: 75 T: 20 INTERPRETIVE STATEMENTS: Normal sinus rhythm Prolonged QT Abnormal ECG Compared to ECG 12/31/2022 18:28:25 T-wave abnormality no longer present Electronically Signed On 06-30-23 15:00:10 COMPLIANCE ANALYST by Severiano Cohen
== END ==
LOC: ER 15:40
DX: R07.89 Other chest pain (principal); E87.70 Fluid overload, unspecified; D64.9 Anemia, unspecified; F17.210 Nicotine dependence, cigarettes, uncomplicated; F41.9 Anxiety disorder, unspecified; Z86.73 Personal history of transient ischemic attack (TIA), and cerebral infarction without residual deficits; Z88.8 Allergy status to other drugs, medicaments and biological substances
CPT/HCPCS: 93005; 85025; 80048; 36415; 83735; 85610; 80076; 84484 ×2; 83880; 71045; J1940

== ENCOUNTER 2023-09-17 16:33 | Emergency (ER) | payer OTHER ==
[2023-09-17 17:38] LABS: Specific Gravity 1.015 (1.005-1.030); Sqamous Epithelial None Seen /HPF (None Seen); Urine Bacteria <20 /HPF (<20); Urine Bilirubin NEGATIVE (Negative); Urine Blood Negative (Negative); Urine Clarity Clear (Clear); Urine Color Light-Yellow (Yellow); Urine Culture Reflex Order NOT NEEDED; Urine Glucose NEGATIVE (Negative); Urine Ketones NEGATIVE (Negative); Urine Microscopic Reflex YN ORDER UMIC; Urine Nitrite NEGATIVE (Negative); Urine Protein NEGATIVE (Negative); Urine RBC <5 /HPF (None Seen); Urine Urobilinogen Normal (Normal); Urine WBC <5 /HPF (<5)
[2023-09-17] MEDS ORDERED: VANCOMYCIN 1 GM/VIAL ONE (17:51)
[2023-09-17] MEDS ORDERED: NA CHLORIDE 0.9% 250 ML ONE (17:51)
[2023-09-17] MEDS ORDERED: NA CHLORIDE 0.9% 500 ML ONE (17:52)
[2023-09-17 18:04] LABS: Absolute Eosinophils 0.1 K/uL (0-0.5); Absolute Lymphocytes (CBC) 2.2 K/uL (0.7-4.9); Absolute Monocytes 0.5 K/uL (0.1-1.3); Absolute Neutrophil 5.3 K/uL (1.8-8.0); Basophils % 0.5 % (0-1.3); Hematocrit 33.9 % (36.0-45.0); Hemoglobin 11.5 g/dL (12.0-15.0); MCH 28.5 pg (27.0-35.0); MCV 83.9 fL (80-100); MPV 7.5 fL (7.6-11.3); Monocytes % 6.4 % (3.3-12.3); Neutrophils % 65.1 % (41.7-73.7); Platelets 227 thou/uL (152-406); RBC Red Blood Cell Count 4.03 M/uL (3.86-4.86); Red Cell Distribution Width 13.3 % (12.1-15.2)
[2023-09-17 18:06] LABS: PTT, Activated Partial Thromb 30.7 SECONDS (24.3-36.9)
[2023-09-17 18:07] LABS: PT Prothrombin Time 11.4 SECONDS (9.5-12.5); Protime INR 1.04
[2023-09-17 18:20] LABS: ALT/SGPT 26 U/L (13-56); AST/SGOT 16 U/L (15-37); Albumin 3.5 g/dL (3.4-5.0); Albumin/Globulin Ratio 0.8 (1.1-1.8); Alkaline Phosphatase 92 U/L (45-117); BUN Blood Urea Nitrogen 7 mg/dL (7-18); Bicarbonate 29 mEq/L (21-32); Bilirubin Total 0.3 mg/dL (0.2-1.0); Globulin 4.3 g/dL (2.3-3.5); Glomerular Filtration Rate 83 ml/min (=/>90); Glucose Level 100 mg/dL (74-106); Protein, Total 7.8 g/dL (6.4-8.2); Sodium Level 136 mEq/L (136-145)
--- NOTE | 2023-09-17 18:22 | RAD REPORT ---
EXAM DESCRIPTION: RADChest Single View09/17/2023 5:45 pm CLINICAL HISTORY: CHEST PAIN COMPARISON: Chest Single View dated 07/25/2023; Chest Single View dated 07/06/2023; Chest Single View d ated 06/28/2023; Chest Single View dated 04/25/2023 TECHNIQUE: Portable AP view of the chest. FINDINGS: The lungs are clear. No pneumothorax or effusion. The cardiomediastinal contours are unre markable. IMPRESSION: No acute cardiopulmonary process.
[2023-09-17 18:34] LABS: Troponin High Sensitivity < 3.0 pg/mL (<58.9)
[2023-09-17] MEDS ORDERED: ONDANSETRON 4 MG/2 ML VIAL ONE (19:19)
[2023-09-17] MEDS ORDERED: MORPHINE 4 MG/ML SYR ONE (19:20)
--- NOTE | 2023-09-17 20:36 | ER ---
Nurse's Notes [facility] Name: Naz Boyle Age: 43 yrs Sex: Female : 1980 Arrival Date: 09/17/2023 Time: 16:33 Bed 18 Private MD: Tanvir Garvey Diagnosis: Nausea with vomiting, unspecified;UTI/ Urinary tract infection, site not specified;Dizziness and giddiness;Weakness Presentation: 09/16 16:43 Coronavirus screen: Client denies travel out of the [place] in the last 14 days. At this ll1 time, the client does not indicate any symptoms associated with coronavirus-19. Ebola Screen: Patient denies travel to an Ebola-affected area in the 21 days before illness onset. Initial Sepsis Screen: Does the patient meet any 2 criteria? No. Patient's initial sepsis screen is negative. Does the patient have a suspected source of infection? No. Patient's initial sepsis screen is negative. Risk Assessment: Do you want to hurt yourself or someone else? Patient reports no desire to harm self or others. Onset of symptoms was September 03, 2023. 16:43 Method Of Arrival: Wheelchair ll1 16:43 Acuity: MIGUEL 3 ll1 16:48 Chief complaint: Patient states: Dizziness, chills, fatigue, diarrhea, nausea for 2 ll1 weeks. Sent in by Dr. Garvey for further evaluation. History of MRSA urine. Triage Assessment: 16:49 General: Appears uncomfortable, Behavior is calm, cooperative, appropriate for age. ll1 General: Reports chills for feeling ill for fatigue for. Pain: Complains of pain in abdomen Pain currently is 8 out of 10 on a pain scale. Quality of pain is described as aching, crampy, pressure. Neuro: Reports weakness. Neuro: Reports dizziness. GI: Reports diarrhea, nausea. 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 - Infectious Disease History:: MRSA (w/in 1 year), . - Social history:: Smoking status: Reported history of juuling and/or vaping. Screenin:07 [facility] ED Fall Risk Assessment (Adult) History of falling in the last 3 months, db including since admission No falls in past 3 months (0 pts) Confusion or Disorientation No (0 pts) Intoxicated or Sedated No (0 pts) Impaired Gait No (0 pts) Mobility Assist Device Used No (0 pt) Altered Elimination No (0 pt) Score/Fall Risk Level 0 - 2 = Low Risk Oriented to surroundings, Maintained a safe environment. Abuse screen: Denies threats or abuse. Denies injuries from another. Nutritional screening: No deficits noted. Tuberculosis screening: No symptoms or risk factors identified. Assessment: 17:30 Reassessment: Patient appears in no apparent distress at this time. Patient and/or db family updated on plan of care and expected duration. Pain level reassessed. Patient is alert, oriented x 3, equal unlabored respirations, skin warm/dry/pink. General: Appears in no apparent distress. comfortable, Behavior is calm, cooperative. Pain: Complains of pain in abdomen. Neuro: Level of Consciousness is awake, alert, obeys commands, Oriented to person, place, time, situation. Cardiovascular: Reports chest pain, Capillary refill < 3 seconds Patient's skin is warm and dry. Respiratory: Airway is patent Respiratory effort is even, unlabored, Respiratory pattern is regular, symmetrical. GI: Abdomen is flat, non-distended, Reports lower abdominal pain, diarrhea. : Hernandez in place to gravity drainage Urine is clear. 18:30 Reassessment: Patient appears in no apparent distress at this time. Patient and/or db family updated on plan of care and expected duration. Pain level reassessed. Patient is alert, oriented x 3, equal unlabored respirations, skin warm/dry/pink. 19:11 Reassessment: Patient appears in no apparent distress at this time. Patient and/or bm8 family updated on plan of care and expected duration. Pain level reassessed. Patient is alert, oriented x 3, equal unlabored respirations, skin warm/dry/pink. General: Appears in no apparent distress. comfortable, Behavior is calm, cooperative, appropriate for age. Pain: Complains of pain in mid-sternal area Pain does not radiate. Pain currently is 8 out of 10 on a pain scale. Quality of pain is described as sharp. Neuro: Level of Consciousness is awake, alert, obeys commands, Oriented to person, place, time, situation. Cardiovascular: Reports chest pain, lightheadedness, Heart tones S1 S2 present Capillary refill < 3 seconds Patient's skin is warm and dry. Respiratory: Airway is patent Trachea midline Respiratory effort is even, unlabored, Respiratory pattern is regular, symmetrical, Breath sounds are clear bilaterally. GI: Abdomen is flat, non-distended, Reports lower abdominal pain. : Hernandez in place to gravity drainage Urine is clear. 19:11 Reassessment: provider informed of pt's pain in chest. bm8 21:02 Reassessment: Patient appears in no apparent distress at this time. Patient and/or bm8 family updated on plan of care and expected duration. Pain level reassessed. Patient is alert, oriented x 3, equal unlabored respirations, skin warm/dry/pink. Patient denies pain at this time. Patient states feeling better. Patient states symptoms have improved. Vital Signs: 16:43 BP 115 / 82; Pulse 67; Resp 17; Temp 97.4; Pulse Ox 100% ; Weight 104.33 kg; Height 5 ll1 ft. 11 in. ; Pain 8/10; 17:55 BP 102 / 61; Pulse 59; Resp 18; Pulse Ox 98% on R/A; db 18:00 BP 110 / 69; Pulse 58; Resp 18; Pulse Ox 97% on R/A; db 19:11 BP 100 / 69; Pulse 59; Resp 17; Temp 97.9; Pulse Ox 100% on R/A; Pain 8/10; bm8 21:02 BP 106 / 68; Pulse 65; Resp 17; Temp 97.9; Pulse Ox 95% ; Pain 0/10; bm8 16:43 Body Mass Index 32.08 (104.33 kg, 180.34 cm) ll1 16:43 Pain Scale: Adult ll1 19:11 Pain Scale: Adult bm8 21:02 Pain Scale: Adult bm8 Grandy Coma Score: 19:11 Eye Response: spontaneous(4). Motor Response: obeys commands(6). Verbal Response: bm8 oriented(5). Total: 15. 21:02 Eye Response: spontaneous(4). Motor Response: obeys commands(6). Verbal Response: bm8 oriented(5). Total: 15. ED Course: 16:36 Patient arrived in ED. mr 16:36 Tanvir Garvey DO is Private Physician. mr 16:44 Triage completed. ll1 16:44 Aron Pond MD is Attending Physician. rt 16:44 Arm band placed on Patient placed in an exam room, on a stretcher. ll1 16:53 Gini York, RN is Primary Nurse. db 17:34 Urinalysis w/ reflexes Sent. db 17:35 First set of blood cultures drawn by me. db 17:45 Initial lab(s) drawn, by me, sent to lab. Second set of blood cultures drawn by me. db Inserted saline lock: 22 gauge in left antecubital area, using aseptic technique. Blood collected. 17:46 Chest Single View XRAY In Process Unspecified. EDMS 18:30 Patient has correct armband on for positive identification. Bed in low position. Call db light in reach. Side rails up X 1. Provided Education on: LABS AND ANTIBIOTICS. Client placed on continuous cardiac and pulse oximetry monitoring. NIBP monitoring applied. 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 Pulse ox on. NIBP on. Warm blanket given. 18:59 Report given to LIZZY RASCON. db 19:11 Chance Vasquez, RN is Primary Nurse. bm8 19:11 No provider procedures requiring assistance completed. bm8 19:20 Attending Physician role handed off by Aron Pond MD anneliese 19:20 Pramod Sanchez MD is Attending Physician. anneliese 19:34 Repeat lab(s) drawn. by me, sent to lab. bm8 20:34 Tanvir Garvey DO is Referral Physician. anneliese 21:02 IV discontinued, intact, bleeding controlled, No redness/swelling at site. Pressure bm8 dressing applied. Administered Medications: 17:48 Drug: NS 0.9% IV 500 ml IV at 500 bolus continuous Route: IV; Rate: 500 bolus; Site: db left antecubital; 19:22 Follow up: Response: No adverse reaction; IV Status: Completed infusion; IV Intake: bm8 500ml 18:12 Drug: vancoMYCIN IVPB 1 grams IVPB once over 2 hrs Route: IVPB; Infused Over: 2 hrs; db Site: left antecubital; 19:22 Follow up: Response: No adverse reaction; IV Status: Completed infusion; IV Intake: bm8 250ml 19:21 Drug: Ondansetron IVP 4 mg IVP once; over 2 minutes Route: IVP; Site: right antecubital;bm8 21:02 Follow up: Response: No adverse reaction bm8 19:22 Drug: morphine IVP or IV 4 mg IVP once over 4 mins Route: IVP; Infused Over: 4 mins; bm8 Site: right antecubital; 21:02 Follow up: Response: No adverse reaction bm8 20:51 Drug: Rocephin IV 1 grams IV at per protocol once; Given slow IV push per pharmacy bm8 instructions Route: IV; Rate: per protocol; Site: right antecubital; 21:02 Follow up: Response: Medication administered at discharge.; IV Status: Completed bm8 infusion 20:51 Drug: Trimethoprim-Sulfamethoxazole PO (160 mg-800 mg (DS) 1 tablet PO once Route: PO; bm8 21:01 Follow up: Response: Medication administered at discharge. bm8 Medication: 17:30 VIS not applicable for this client. db Intake: 19:22 IV: 250ml; Total: 250ml. bm8 19:22 IV: 500ml; Total: 750ml. bm8 Output: 18:21 Urine: 475ml (Hernandez); Total: 475ml. db Outcome: 20:35 Discharge ordered by . anneliese 21:02 Discharged to home ambulatory, bm8 21:02 Condition: stable 21:02 Discharge instructions given to patient, family, Instructed on discharge instructions, follow up and referral plans. medication usage, safety practices, Demonstrated understanding of instructions, follow-up care, medications, Prescriptions given X 2, 21:04 Patient left the ED. bm8 Signatures: Dispatcher [employer] EDMS Pramod Sanchez MD MD cha Rivera, Mary, Reg Reg mr Ceci Mata, RN RN ll1 Gini York, LIZZY RN db Aron Pond MD MD rt Chance Vasquez RN RN bm8 Corrections: (The following items were deleted from the chart) 19:14 19:11 Pulse Ox 100%; Pain 8/10, Adult; bm8 bm8
--- NOTE | 2023-09-17 20:36 | EDPHYS ---
Physician Documentation [facility] Name: Naz Boyle Age: 43 yrs Sex: Female : 1980 Arrival Date: 09/17/2023 Time: 16:33 Bed 18 Private MD: Tanvir Garvey ED Physician Pramod Sanchez HPI: 09/16 17:33 This 43 yrs old Female presents to ER via Wheelchair with complaints of Dizziness, rt Diarrhea, Nausea. 17:33 Patient had finished multiple treatments for MRSA UTI. States that she has developed rt diarrhea, generalized weakness, chest pain over the past week. Was sent by the PCP due to having a resistant bacteria growing on latest UTI. Denies other acute complaints at this time, symptoms are moderate in severity, no other aggravating or alleviating factors.. 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 - Infectious Disease History:: MRSA (w/in 1 year), . - Social history:: Smoking status: Reported history of juuling and/or vaping. ROS: 18:33 Constitutional: Negative for fever, chills, and weight loss, Respiratory: Negative for rt shortness of breath, cough, wheezing, and pleuritic chest pain, MS/Extremity: Negative for injury and deformity, Skin: Negative for injury, rash, and discoloration, Psych: Negative for depression, anxiety, suicide ideation, homicidal ideation, and hallucinations, 18:33 Cardiovascular: Positive for chest pain, Negative for edema, 18:33 Abdomen/GI: Positive for diarrhea, Negative for vomiting, 18:33 Neuro: Positive for dizziness, weakness, Exam: 18:33 Constitutional: This is a well developed, well nourished patient who is awake, alert, rt and in no acute distress. Head/Face: Normocephalic, atraumatic. Chest/axilla: Normal chest wall appearance and motion. Nontender with no deformity. No lesions are appreciated. Cardiovascular: Regular rate and rhythm with a normal S1 and S2. No gallops, murmurs, or rubs. Normal PMI, no JVD. No pulse deficits. Respiratory: Lungs have equal breath sounds bilaterally, clear to auscultation and percussion. No rales, rhonchi or wheezes noted. No increased work of breathing, no retractions or nasal flaring. Abdomen/GI: Soft, non-tender, with normal bowel sounds. No distension or tympany. No guarding or rebound. No evidence of tenderness throughout. Skin: Warm, dry with normal turgor. Normal color with no rashes, no lesions, and no evidence of cellulitis. MS/ Extremity: Pulses equal, no cyanosis. Neurovascular intact. Full, normal range of motion. Neuro: Awake and alert, GCS 15, oriented to person, place, time, and situation. Cranial nerves II-XII grossly intact. Motor strength 5/5 in all extremities. Sensory grossly intact. Cerebellar exam normal. Normal gait. 18:33 ECG was reviewed by the Attending Physician. Vital Signs: 16:43 BP 115 / 82; Pulse 67; Resp 17; Temp 97.4; Pulse Ox 100% ; Weight 104.33 kg; Height 5 ll1 ft. 11 in. ; Pain 8/10; 17:55 BP 102 / 61; Pulse 59; Resp 18; Pulse Ox 98% on R/A; db 18:00 BP 110 / 69; Pulse 58; Resp 18; Pulse Ox 97% on R/A; db 19:11 BP 100 / 69; Pulse 59; Resp 17; Temp 97.9; Pulse Ox 100% on R/A; Pain 8/10; bm8 21:02 BP 106 / 68; Pulse 65; Resp 17; Temp 97.9; Pulse Ox 95% ; Pain 0/10; bm8 16:43 Body Mass Index 32.08 (104.33 kg, 180.34 cm) ll1 16:43 Pain Scale: Adult ll1 19:11 Pain Scale: Adult bm8 21:02 Pain Scale: Adult bm8 Homero Coma Score: 19:11 Eye Response: spontaneous(4). Motor Response: obeys commands(6). Verbal Response: bm8 oriented(5). Total: 15. 21:02 Eye Response: spontaneous(4). Motor Response: obeys commands(6). Verbal Response: bm8 oriented(5). Total: 15. MDM: 16:50 Patient medically screened. rt 20:38 Differential diagnosis: generalized weakness, hypovolemia, near-syncope, sepsis, anneliese vertigo. Data reviewed: vital signs, nurses notes, lab test result(s), EKG, radiologic studies. Consideration of Admission/Observation Escalation of care including admission/observation considered. I considered the following discharge prescriptions or medication management in the emergency department Medications were administered in the Emergency Department. See MAR. Test considered but Not performed: CT: NO CT STONE. Care significantly affected by the following chronic conditions: Obesity, MIGRAINE, CVA, CVA, LUPUS. 09/16 17:02 Order name: Blood Culture Adult (2) rt 09/16 17:02 Order name: CBC with Diff; Complete Time: 18:26 rt 09/16 17:02 Order name: CMP; Complete Time: 18:35 rt 09/16 17:02 Order name: Lactate w/ 2H reflex if indic.; Complete Time: 18:26 rt 09/16 17:02 Order name: Protime (+inr); Complete Time: 18:26 rt 09/16 17:02 Order name: Ptt, Activated; Complete Time: 18:26 rt 09/16 17:02 Order name: Urinalysis w/ reflexes; Complete Time: 18:05 rt 09/16 17:02 Order name: Troponin High Sensitivity; Complete Time: 18:35 rt 09/16 19:16 Order name: Troponin High Sensitivity; Complete Time: 20:30 rt 09/16 20:31 Order name: Urine Culture [facility] 09/16 17:02 Order name: Chest Single View XRAY; Complete Time: 18:26 rt 09/16 17:02 Order name: Accucheck; Complete Time: 18:08 rt 09/16 17:02 Order name: Cardiac monitoring; Complete Time: 18:08 rt 09/16 17:02 Order name: EKG - Nurse/Tech; Complete Time: 18:08 rt 09/16 17:02 Order name: IV Saline Lock - Large Bore; Complete Time: 18:08 rt 09/16 17:02 Order name: Labs collected and sent; Complete Time: 18:08 rt 09/16 17:02 Order name: O2 Per Protocol; Complete Time: 18:08 rt 09/16 17:02 Order name: O2 Sat Monitoring; Complete Time: 18: rt 09/16 17:02 Order name: Vital Signs; Complete Time: 18:08 rt EC:33 Rate is 57 beats/min. Rhythm is regular, Sinus bradycardia with No ectopy. QRS [place] is rt Normal. MO interval is normal. QRS interval is normal. QT interval is normal. No Q waves. No ST changes noted. Administered Medications: 17:48 Drug: NS 0.9% IV 500 ml IV at 500 bolus continuous Route: IV; Rate: 500 bolus; Site: db left antecubital; 19:22 Follow up: Response: No adverse reaction; IV Status: Completed infusion; IV Intake: bm8 500ml 18:12 Drug: vancoMYCIN IVPB 1 grams IVPB once over 2 hrs Route: IVPB; Infused Over: 2 hrs; Site: left antecubital; 19:22 Follow up: Response: No adverse reaction; IV Status: Completed infusion; IV Intake: bm8 250ml 19:21 Drug: Ondansetron IVP 4 mg IVP once; over 2 minutes Route: IVP; Site: right antecubital;bm8 21:02 Follow up: Response: No adverse reaction bm8 19:22 Drug: morphine IVP or IV 4 mg IVP once over 4 mins Route: IVP; Infused Over: 4 mins; bm8 Site: right antecubital; 21:02 Follow up: Response: No adverse reaction bm8 20:51 Drug: Rocephin IV 1 grams IV at per protocol once; Given slow IV push per pharmacy bm8 instructions Route: IV; Rate: per protocol; Site: right antecubital; 21:02 Follow up: Response: Medication administered at discharge.; IV Status: Completed bm8 infusion 20:51 Drug: Trimethoprim-Sulfamethoxazole PO (160 mg-800 mg (DS) 1 tablet PO once Route: PO; bm8 21:01 Follow up: Response: Medication administered at discharge. bm8 Disposition Summary: 09/17/23 20:35 Discharge Ordered Notes: Location: Home anneliese Problem: new anneliese Symptoms: have improved anneliese Condition: Stable anneliese Diagnosis - Nausea with vomiting, unspecified anneliese - UTI/ Urinary tract infection, site not specified anneliese - Dizziness and giddiness anneliese - Weakness anneliese Followup: anneliese - With: Tanvir Garvey, DO - When: 2 - 3 days - Reason: Recheck today's complaints, Continuance of care, Re-evaluation by your physician Discharge Instructions: - Discharge Summary Sheet anneliese - Dizziness anneliese - Indwelling Urinary Catheter Care, Adult anneliese - Nausea and Vomiting, Adult anneliese - Urinary Tract Infection, Adult anneliese - Weakness anneliese - Nausea and Vomiting, Adult, [id number] anneliese - Urinary Tract Infection, Adult, [id number] anneliese - Weakness, Euco-ux-Rola anneliese - Indwelling Urinary Catheter Care, Adult, [id number] anneliese Forms: - Medication Reconciliation Form [facility] - Antibiotic Education anneliese - Prescription Opioid Use anneliese - Patient Portal Instructions [facility] - Leadership Thank You Letter [facility] Prescriptions: - ondansetron 4 mg Oral Tablet,disintegrating - take 1 tablet ORAL route every 8 hours for 5 days PRN NAUSEA VOMITING; 20 anneliese tablet; Refills: 0, Product Selection Permitted - Bactrim DS 800-160 mg Oral Tablet - take 1 tablet ORAL route every 12 hours for 7 days; 14 tablet; Refills: 0, anneliese Product Selection Permitted Signatures: Dispatcher [employer] EDPramod Capellan MD MD cha Lewis, Lynsay, RN RN ll1 Gini York, RN RN db Aron Pond MD MD rt Chance Vasquez, RN RN bm8 Corrections: (The following items were deleted from the chart) 17:03 17:03 Chest Single View+[email or web address] ordered. [facility] EDMS
[2023-09-17] MEDS ORDERED: SMZ./TMP. 800/160 MG TABLET ONE (20:52)
[2023-09-17] MEDS ORDERED: CEFTRIAXONE 1000 MG/VIAL ONE (20:52)
[2023-09-17 21:35] VITALS: BP 106/68; TEMP 97.9; O2SAT 95
--- NOTE | 2023-09-18 16:43 | EKG ---
Test Date: 2023-09-17 Test Time: 17:59:11 Keysmith: DORITA MEASUREMENT RESULTS: Intervals: Rate: 57 HI: 132 QRSD: 80 QT: 470 QTc: 457 [place]: P: 36 HI: 132 QRS: 51 T: -11 INTERPRETIVE STATEMENTS: Sinus bradycardia Nonspecific T wave abnormality Abnormal ECG Compared to ECG 07/25/2023 12:55:47 T-wave abnormality now present Electronically Signed On 09-18-23 16:41:40 CDT by Severiano Cohen
== END 2023-09-17 21:04 | disposition home or self-care (01) ==
LOC: ER 16:33
DX: N39.0 Urinary tract infection, site not specified (principal); R42 Dizziness and giddiness; R53.1 Weakness; Z88.8 Allergy status to other drugs, medicaments and biological substances
CPT/HCPCS: 87040 ×2; 85025; 81001; 36415; 85610; 83605; 85730; 84484 ×2; 80053; 71045; J2405; J7050; J7040; J0696; 93005

== ENCOUNTER 2024-01-20 12:50 | Emergency (ER) | payer OTHER ==
[2024-01-20] MEDS ORDERED: MIDAZOLAM HCL 5 ML ONE ×3 (12:54→13:44)
[2024-01-20] MEDS ORDERED: LEVETIRACETAM 500 MG/5 ML VIAL IV ONE (13:00)
[2024-01-20] MEDS ORDERED: NA CHLORIDE 0.9% 100 ML ONE (13:00)
[2024-01-20 13:26] LABS: Absolute Basophils 0.1 K/uL (0-0.5); Absolute Eosinophils 0.2 K/uL (0-0.5); Absolute Lymphocytes (CBC) 2.2 K/uL (0.7-4.9); Absolute Monocytes 0.4 K/uL (0.1-1.3); Absolute Neutrophil 4.3 K/uL (1.8-8.0); Basophils % 0.8 % (0-1.3); Eosinophils % 2.1 % (0-4.4); Hematocrit 36.4 % (36.0-45.0); Hemoglobin 12.6 g/dL (12.0-15.0); Lymphocytes % 30.4 % (15.3-44.8); MCH 30.2 pg (27.0-35.0); MCHC 34.7 g/dL (32.0-36.0); MCV 86.9 fL (80-100); MPV 7.3 fL (7.6-11.3); Neutrophils % 60.7 % (41.7-73.7); Platelets 239 thou/uL (152-406); RBC Red Blood Cell Count 4.18 M/uL (3.86-4.86); Red Cell Distribution Width 13.4 % (12.1-15.2)
[2024-01-20 13:36] LABS: Sqamous Epithelial <5 /HPF (None Seen); Urine Bacteria <20 /HPF (<20); Urine Bilirubin NEGATIVE (Negative); Urine Blood Negative (Negative); Urine Clarity Extremely Turbid (Clear); Urine Color Light-Yellow (Yellow); Urine Culture Reflex Order NOT NEEDED; Urine Glucose NEGATIVE (Negative); Urine Ketones NEGATIVE (Negative); Urine Microscopic Reflex YN ORDER UMIC; Urine Nitrite 2+ (Negative); Urine Protein NEGATIVE (Negative); Urine RBC <5 /HPF (None Seen); Urine Urobilinogen Normal (Normal)
[2024-01-20 13:37] LABS: Anion Gap 9.2 mEq/L (5.0-15.0); Potassium 4.2 mEq/L (3.5-5.1)
[2024-01-20] MEDS ORDERED: AMIODARONE IN DEXTROSE,ISO-OSM 360 MG/200 ML BAG IV ONE (13:44)
[2024-01-20] MEDS ORDERED: propofoL 1,000 MG/100 ML VIAL IV ONE ×4 (13:52→20:09)
[2024-01-20] MEDS ORDERED: SUCCINYLCHOLINE 20 MG/ML (10 ML) IV ONE (13:52)
--- NOTE | 2024-01-20 13:58 | RAD REPORT ---
EXAM DESCRIPTION: CT - Head Brain Wo Cont - 01/20/2024 1:35 pm CLINICAL HISTORY: Seizure COMPARISON: July 2023 TECHNIQUE: Computed axial tomography of the head was obtained. IV contrast was not requested. All CT scans are performed using dose optimization technique as appropriate and may include automated exposure control or mA/KV adjustment according to patient size. FINDINGS: An intracranial bleed is not seen The ventricles are normal in caliber No significant hypodense areas within the brain visualized No extra-axial fluid collection is noted. Fluid within the sinuses/ mastoids is not seen IMPRESSION: No acute intracranial abnormality is seen If patient's symptoms persist MRI of the brain would be recommended
[2024-01-20] MEDS ORDERED: NA CHLORIDE 0.9% IV SCH ×2 (14:00→14:30)
[2024-01-20] MEDS ORDERED: LACOSAMIDE IV SCH ×2 (14:00→14:30)
[2024-01-20 14:13] LABS: PT Prothrombin Time 12.1 SECONDS (9.4-12.5); PTT, Activated Partial Thromb 34.4 SECONDS (24.3-36.9); Protime INR 1.08
[2024-01-20] MEDS ORDERED: NA CHLORIDE 0.9% 1,000 ML ONE ×2 (14:42→20:17)
--- NOTE | 2024-01-20 15:02 | ER ---
Nurse's Notes [facility] Name: Naz Boyle Age: 43 yrs Sex: Female : 1980 Arrival Date: 01/20/2024 Time: 12:50 Bed 3 Private MD: Diagnosis: Epilepsy, unspecified, intractable, with status epilepticus Presentation: 01/19 13:01 Chief complaint: EMS states: pt has had multiple seizures lasting 15-20 seconds, hx of iw seizures, takes keppra and lacosamide. Coronavirus screen: At this time, the client does not indicate any symptoms associated with coronavirus-19. Initial Sepsis Screen: Does the patient meet any 2 criteria? No. Patient's initial sepsis screen is negative. Does the patient have a suspected source of infection? No. Patient's initial sepsis screen is negative. Risk Assessment: Do you want to hurt yourself or someone else?. Onset of symptoms was January 20, 2024. 13:01 Method Of Arrival: EMS: [facility] iw 13:01 Acuity: MIGUEL 2 iw 14:18 Ebola Screen: No symptoms or risks identified at this time. ph Historical: - Allergies: 13:01 Prednisone; iw - PMHx: 13:01 Anxiety; BRADYCARDIA; Hypothyroidism; CVA; Hypercholesterolemia; Neurogenic bladder; iw hypotension; Seizure; Migraine; PTSD; Lupus erythematosus; PERIPHERAL NEUROPATHY; RLS; Sleep Apnea; SVT; RA; - PSHx: 13:01 Carpal tunnel luis miguel; Cholecystectomy; section; Appendectomy; hysterectomy; iw - Immunization history:: Adult Immunizations up to date. - Infectious Disease History:: Denies. - Social history:: Smoking status: Patient denies any tobacco usage or history of. Screenin:17 [facility] ED Fall Risk Assessment (Adult) History of falling in the last 3 months, ld1 including since admission No falls in past 3 months (0 pts) Confusion or Disorientation No (0 pts) Intoxicated or Sedated No (0 pts) Impaired Gait No (0 pts) Mobility Assist Device Used No (0 pt) Altered Elimination No (0 pt) Score/Fall Risk Level 0 - 2 = Low Risk Oriented to surroundings, Maintained a safe environment, Educated pt \\T\\ family on fall prevention, incl call for assistance when getting out of bed, Assessed \\T\\ reinforced patient's understanding of fall precautions, Provided non-skid footwear, Hourly rounding (assess needs \\T\\ fall precautionary measures) done, Used ambulatory aids as needed (educated on \\T\\ assisted with), Used gait belt as appropriate. Abuse screen: Denies threats or abuse. Denies injuries from another. Nutritional screening: No deficits noted. Tuberculosis screening: No symptoms or risk factors identified. Assessment: 13:05 General: Appears in no apparent distress. comfortable, Behavior is calm. Pain: Unable ld1 to use pain scale. Patient is disoriented. Patient is unresponsive. Post seizure activity. Neuro: Level of Consciousness is post ictal, unresponsive, Oriented to none Seizure activity noted at this time. 13:05 Cardiovascular: Capillary refill < 3 seconds Patient's skin is warm and dry. Rhythm is ld1 sinus rhythm. Respiratory: Airway is patent Respiratory effort is even, unlabored. GI: Abdomen is round non-distended. : No signs and/or symptoms were reported regarding the genitourinary system. EENT: No signs and/or symptoms were reported regarding the EENT system. Derm: No signs and/or symptoms reported regarding the dermatologic system. Musculoskeletal: No signs and/or symptoms reported regarding the musculoskeletal system. 13:40 Reassessment: Seizure activity upon arrival back to room from CT. Seizure began at ld1 1340. Notified ERP, ERP at bedside assessing patient. See MAR for orders. 13:43 Reassessment: Faxed Vimpat order to pharmacy at 1343. ld1 13:48 Reassessment: Seizure stopped at 1348 after 5mg Versed. Pt transported to trauma hyde ld1 with nurse for possible intubation with ERP at bedside. 15:58 Neuro: Alvarado Agitation-Sedation Scale (RASS): -1 Drowsy. tm6 17:19 Reassessment: Patient appears in no apparent distress at this time. No changes from ph previously documented assessment. Patient and/or family updated on plan of care and expected duration. Pain level reassessed. 19:00 General: Appears in no apparent distress. Neuro: Level of Consciousness is patient al5 sedated. Cardiovascular: Patient's skin is warm and dry. Rhythm is sinus rhythm. Respiratory: Airway via oral intubation Respiratory effort is even, unlabored, Respiratory pattern is regular, symmetrical, Ventilator assessment: ET Tube: 7.0 20 cm. at gum line. FiO2: 100%. 19:00 GI: No signs and/or symptoms were reported involving the gastrointestinal system. : al5 Hernandez in place to gravity drainage clamped. EENT: No signs and/or symptoms were reported regarding the EENT system. Derm: Skin is intact, Skin is pink, warm \\T\\ dry. normal. Musculoskeletal: No signs and/or symptoms reported regarding the musculoskeletal system. 19:30 Reassessment: Patient appears in no apparent distress at this time. No changes from al5 previously documented assessment. Patient and/or family updated on plan of care and expected duration. Pain level reassessed. Patient is alert, oriented x 3, equal unlabored respirations, skin warm/dry/pink. 20:00 Reassessment: Patient appears in no apparent distress at this time. No changes from al5 previously documented assessment. Patient and/or family updated on plan of care and expected duration. Pain level reassessed. Patient is alert, oriented x 3, equal unlabored respirations, skin warm/dry/pink. Vital Signs: 13:17 BP 112 / 84; Pulse 73; Resp 20; Temp 97.9(TE); Pulse Ox 96% on R/A; Height 5 ft. 5 in. ld1 ; Pain 0/10; 13:53 Weight 120.2 kg; ph 13:53 Weight 120.2 kg; tm6 14:17 BP 114 / 81; Pulse 67; Resp 16; Pulse Ox 100% on ETT vent; FiO2 100 %; ph 14:30 BP 100 / 60; Pulse 74; Resp 18; Pulse Ox 100% on ETT vent; FiO2 100 %; ph 14:45 BP 98 / 66; Pulse 67; Resp 16; Pulse Ox 100% on ETT vent; FiO2 100 %; ph 15:01 BP 99 / 64; Pulse 66; Resp 16; Pulse Ox 100% on ETT vent; FiO2 100 %; ph 15:15 BP 112 / 73; Pulse 65; Resp 16; Pulse Ox 100% on ETT vent; FiO2 100 %; ph 15:30 BP 109 / 68; Pulse 69; Resp 16; Pulse Ox 100% on ETT vent; FiO2 100 %; ph 15:45 BP 114 / 81; Pulse 70; Resp 16; Pulse Ox 100% on ETT vent; FiO2 100 %; ph 16:00 BP 105 / 74; Pulse 67; Resp 16; Pulse Ox 100% on ETT vent; FiO2 100 %; ph 16:15 BP 104 / 79; Pulse 71; Resp 16; Pulse Ox 100% on ETT vent; FiO2 100 %; ph 16:30 BP 108 / 69; Pulse 64; Resp 18; Pulse Ox 100% on ETT vent; FiO2 100 %; ph 16:45 BP 119 / 78; Pulse 68; Resp 16; Pulse Ox 100% on ETT vent; FiO2 100 %; ph 17:19 BP 103 / 70; Pulse 61; Resp 16; Pulse Ox 100% on ETT vent; FiO2 100 %; ph 17:30 BP 104 / 68; Pulse 60; Resp 16; Pulse Ox 100% on ETT vent; FiO2 100 %; ph 17:45 BP 105 / 70; Pulse 59; Resp 16; Pulse Ox 100% on ETT vent; FiO2 100 %; ph 18:00 BP 103 / 69; Pulse 61; Resp 16; Pulse Ox 100% on ETT vent; FiO2 100 %; ph 18:15 BP 105 / 72; Pulse 61; Resp 16; Pulse Ox 100% on ETT vent; FiO2 100 %; ph 18:30 BP 104 / 70; Pulse 61; Resp 16; Pulse Ox 100% on ETT vent; FiO2 100 %; ph 19:00 BP 104 / 69; Pulse 59; Resp 16; Pulse Ox 100% on ETT vent; FiO2 100 %; al5 19:10 BP 104 / 69; Pulse 59; Resp 16; Pulse Ox 100% on ETT vent; FiO2 100 %; al5 19:20 BP 105 / 71; Pulse 59; Resp 16; Pulse Ox 100% on ETT vent; FiO2 100 %; al5 19:30 BP 104 / 69; Pulse 59; Resp 16; Pulse Ox 100% on ETT vent; FiO2 100 %; al5 19:40 BP 102 / 69; Pulse 59; Resp 16; Pulse Ox 100% on ETT vent; FiO2 100 %; al5 19:50 BP 101 / 70; Pulse 58; Resp 16; Pulse Ox 100% on ETT vent; FiO2 100 %; al5 20:00 BP 98 / 63; Pulse 58; Resp 16; Pulse Ox 100% on ETT vent; FiO2 100 %; al5 20:00 BP 110 / 75; Pulse 63; Resp 16; Pulse Ox 100% on ETT vent; FiO2 100 %; al5 13:17 Pain Scale: Adult ld1 Vitals: 14:17 Cardiac Rhythm Assessment Sinus rhythm. ph [place]wick Coma Score: 14:18 Eye Response: none(1). Modifying Factors: Intubated. Modifying Factors: Medicated. ph Motor Response: none(1). Verbal Response: none(1). Total: 3. ED Course: 12:52 Patient arrived in ED. dd2 12:53 Peng Hdez DO is Attending Physician. ms3 13:00 Inserted saline lock: 20 gauge in right hand, using aseptic technique. Blood collected. ld1 Flushed with 10 mL NS. 13:01 Triage completed. iw 13:16 Inserted saline lock: 20 gauge in left antecubital area, using aseptic technique. Blood mb9 collected. Flushed with 10 mL NS. 13:17 Princess Hdez, RN is Primary Nurse. ld1 13:17 Patient has correct armband on for positive identification. Placed in gown. Bed in low ld1 position. Call light in reach. Side rails up X2. monitor and storage bin tender on. Pulse ox on. NIBP on. Door closed. Noise minimized. Warm blanket given. 13:19 No provider procedures requiring assistance completed. ld1 13:19 Seizure precautions initiated. ld1 13:29 Urinalysis w/ reflexes Sent. ld1 13:36 CT Head Brain wo Cont In Process Unspecified. EDMS 13:48 Report given to Chayo Hyde, LIZZY and Delma Decker RN. ld1 13:57 Assist ventilation with Ambu bag. tm6 13:58 Assisted provider with intubation using 7.0 mm ETT via oral route. ET tube secured at tm6 20cm at the teeth. Set up intubation tray. Intubated by Peng Hdez DO Placement verified by auscultating bilateral breath sounds, End-tidal CO2 montioring CXR, Patient tolerated well. 13:59 Assist ventilation with ventilator. tm6 14:02 Placed. tm6 14:05 OG tube 18fr. tm6 14:[address] [facility]. bd 14:18 Patient transferred, IV remains in place. ph 14:18 Arm band placed on Patient placed in an exam room, on a stretcher, on oxygen, on ph property assessment monitor, on pulse oximetry. 14:40 CXR XRAY In Process Unspecified. EDMS 16:20 spoke with Celeste at [facility], "still waiting for ICU bed to be ready". bd 18:44 Chayo Hyde, RN is Primary Nurse. ph 19:35 [facility] called for transport. ty Administered Medications: 13:05 Drug: Midazolam IVP or IV 5 mg IVP once Route: IVP; Site: right hand; mb9 14:04 Follow up: Response: No adverse reaction ld1 13:05 Drug: Keppra IV 1000 mg IV at calculated rate once Route: IV; Rate: calculated rate; mb9 Site: right hand; 14:04 Follow up: Response: No adverse reaction; IV Status: Completed infusion ld1 13:10 Drug: Midazolam IVP or IV 5 mg IVP once Route: IVP; Site: left antecubital; mb9 14:04 Follow up: Response: No adverse reaction ld1 13:25 CANCELLED (Physician Discretion): morphineor iv 4 mg IVP once over 4 mins ms3 13:47 Drug: Midazolam IVP or IV 5 mg IVP once Route: IVP; Site: left antecubital; ld1 14:04 Follow up: Response: No adverse reaction ld1 13:57 Drug: Propofol IVP 1 mg/kg IVP once; Document RASS score. Route: IVP; Site: left ph antecubital; 14:00 Follow up: Response: No adverse reaction; Patient is sedated ph 13:57 Drug: Succinylcholine IVP 1.5 mg/kg IVP once Route: IVP; Site: left antecubital; ph 14:00 Follow up: Response: No adverse reaction ph 14:11 Drug: Vimpat IV 100 mg IV at calculated rate once; administer over 30-60 minutes; (mix ph in 100 mL NS) Route: IV; Rate: calculated rate; Site: right hand; 14:15 Follow up: Pt recieved [address] Hdez ph 14:45 Follow up: Response: No adverse reaction; IV Status: Completed infusion ph 14:16 Drug: Propofol IV 5 mcg/kg/min IV at calculated rate See Administration Instructions; ph Standard concentration 1000 mg / 100 mL; Recommended max rate 50 mcg/kg/min; Titrate 2 mcg/kg/min every 5 minutes to achieve goal (see titration policy); Goal parameter RASS score 0 to -2 {Note: start drip at 30 mcg/kg/min per Dr Hdez, .} Route: IV; Rate: calculated rate; Site: left antecubital; 15:55 Follow up: Rate change 40 mcg/kg/min tm6 16:00 Follow up: Rate change 50 mcg/kg/min tm6 18:45 Follow up: Response: No adverse reaction; IV Status: Infusion continued upon transfer ph 20:19 Follow up: Response: No adverse reaction; Medication Administered at Departure; IV al5 Status: Infusion continued upon transfer 14:45 Drug: NS 0.9% IV 500 ml IV at bolus once Route: IV; Rate: bolus; Site: right hand; ph 15:30 Follow up: Response: No adverse reaction; IV Status: Completed infusion; IV Intake: ph 500ml 17:50 Drug: Rocephin IV 1 grams IV at calculated rate once; Given slow IV push per pharmacy ph instructions Route: IV; Rate: calculated rate; Site: right hand; 18:00 Follow up: Response: No adverse reaction; IV Status: Completed infusion ph 20:09 Drug: Propofol IV 5 mcg/kg/min IV at calculated rate See Administration Instructions; al5 Standard concentration 1000 mg / 100 mL; Recommended max rate 50 mcg/kg/min; Titrate 2 mcg/kg/min every 5 minutes to achieve goal (see titration policy); Goal parameter RASS score 0 to -2 Route: IV; Rate: calculated rate; Site: right antecubital; 20:10 Follow up: Response: No adverse reaction; Medication Administered at Departure al5 20:19 Follow up: Response: No adverse reaction; Medication Administered at Departure; IV al5 Status: Infusion continued upon transfer 20:19 Drug: NS 0.9% IV 1000 ml IV at 100 ml/hr once Route: IV; Rate: 100 ml/hr; Site: right al5 hand; 20:19 Follow up: Response: No adverse reaction; Medication Administered at Departure al5 20:19 Follow up: Response: No adverse reaction; Medication Administered at Departure; IV al5 Status: Infusion continued upon transfer 20:19 Follow up: Response: No adverse reaction; Medication Administered at Departure; IV al5 Status: Infusion continued upon transfer Medication: 13:17 VIS not applicable for this client. ld1 Intake: 15:30 IV: 500ml; Total: 500ml. ph Outcome: 15:01 ER care complete, transfer ordered by . ms3 20:46 Transferred by ground EMS to [facility], Transfer form completed. vc1 X-rays sent w/ patient. 20:46 Condition: stable 20:46 Instructed on family instructed on need for transfer 20:47 Patient left the ED. vc1 Signatures: Dispatcher [employer] EDMS Conchita Mejia Irene, RN RN iw Hall, Patricia RN RN Peng Byrd, DO ms3 Princess Hdez RN RN ld1 Ladonna Soria RN RN 1 Caitlin Gómez RN RN mb9 Delma Decker RN RN tm6 Jose Mendoza Amanda, RN RN al5 DONNY GONZALEZ RN RN dd2 Corrections: (The following items were deleted from the chart) 13:50 13:40 Reassessment: Seizure activity upon arrival back to room from CT. Seizure began ld1 at 1340. Notified ERP. See MAR for orders. ld1 14:56 14:56 NS 0.9% IV 500 ml IV at bolus in right hand ph ph 19:19 19:19 Pt recieved [address] Hdez ph ph
--- NOTE | 2024-01-20 15:02 | EDPHYS ---
Physician Documentation [facility] Name: Naz Boyle Age: 43 yrs Sex: Female : 1980 Arrival Date: 01/20/2024 Time: 12:50 Bed 3 Private MD: ED Physician Peng Hdez HPI: 01/19 13:21 This 43 yrs old Female presents to ER via EMS with complaints of Seizure. ms3 13:21 43-year-old female with past medical history of anxiety, bradycardia, hypothyroidism, ms3 CVA, hyperlipidemia, neurogenic bladder, seizures presents to the emergency department via [facility] for seizures. EMS states patient had multiple 15 to 20-minute seizures. Patient seizing on arrival to the emergency department. Historical: - Allergies: 13:01 Prednisone; iw - PMHx: 13:01 Anxiety; BRADYCARDIA; Hypothyroidism; CVA; Hypercholesterolemia; Neurogenic bladder; iw hypotension; Seizure; Migraine; PTSD; Lupus erythematosus; PERIPHERAL NEUROPATHY; RLS; Sleep Apnea; SVT; RA; - PSHx: 13:01 Carpal tunnel luis miguel; Cholecystectomy; section; Appendectomy; hysterectomy; iw - Immunization history:: Adult Immunizations up to date. - Infectious Disease History:: Denies. - Social history:: Smoking status: Patient denies any tobacco usage or history of. ROS: 13:21 Unable to obtain ROS due to Seizing, ms3 Exam: 13:21 Constitutional: This is a well developed, well nourished patient who is awake, alert, ms3 and in no acute distress. Head/Face: Normocephalic, atraumatic. Cardiovascular: Regular rate and rhythm with a normal S1 and S2. No gallops, murmurs, or rubs. Normal PMI, no JVD. No pulse deficits. Respiratory: Lungs have equal breath sounds bilaterally, clear to auscultation and percussion. No rales, rhonchi or wheezes noted. No increased work of breathing, no retractions or nasal flaring. Abdomen/GI: Soft, non-tender, with normal bowel sounds. No distension or tympany. No guarding or rebound. No evidence of tenderness throughout. Skin: Warm, dry with normal turgor. Normal color with no rashes, no lesions, and no evidence of cellulitis. 13:21 Neuro: Seizing with tremors of bilateral hands and facial twitching, 13:32 ECG was reviewed by the Attending Physician. ms3 Vital Signs: 13:17 BP 112 / 84; Pulse 73; Resp 20; Temp 97.9(TE); Pulse Ox 96% on R/A; Height 5 ft. 5 in. ld1 ; Pain 0/10; 13:53 Weight 120.2 kg; ph 13:53 Weight 120.2 kg; tm6 14:17 BP 114 / 81; Pulse 67; Resp 16; Pulse Ox 100% on ETT vent; FiO2 100 %; ph 14:30 BP 100 / 60; Pulse 74; Resp 18; Pulse Ox 100% on ETT vent; FiO2 100 %; ph 14:45 BP 98 / 66; Pulse 67; Resp 16; Pulse Ox 100% on ETT vent; FiO2 100 %; ph 15:01 BP 99 / 64; Pulse 66; Resp 16; Pulse Ox 100% on ETT vent; FiO2 100 %; ph 15:15 BP 112 / 73; Pulse 65; Resp 16; Pulse Ox 100% on ETT vent; FiO2 100 %; ph 15:30 BP 109 / 68; Pulse 69; Resp 16; Pulse Ox 100% on ETT vent; FiO2 100 %; ph 15:45 BP 114 / 81; Pulse 70; Resp 16; Pulse Ox 100% on ETT vent; FiO2 100 %; ph 16:00 BP 105 / 74; Pulse 67; Resp 16; Pulse Ox 100% on ETT vent; FiO2 100 %; ph 16:15 BP 104 / 79; Pulse 71; Resp 16; Pulse Ox 100% on ETT vent; FiO2 100 %; ph 16:30 BP 108 / 69; Pulse 64; Resp 18; Pulse Ox 100% on ETT vent; FiO2 100 %; ph 16:45 BP 119 / 78; Pulse 68; Resp 16; Pulse Ox 100% on ETT vent; FiO2 100 %; ph 17:19 BP 103 / 70; Pulse 61; Resp 16; Pulse Ox 100% on ETT vent; FiO2 100 %; ph 17:30 BP 104 / 68; Pulse 60; Resp 16; Pulse Ox 100% on ETT vent; FiO2 100 %; ph 17:45 BP 105 / 70; Pulse 59; Resp 16; Pulse Ox 100% on ETT vent; FiO2 100 %; ph 18:00 BP 103 / 69; Pulse 61; Resp 16; Pulse Ox 100% on ETT vent; FiO2 100 %; ph 18:15 BP 105 / 72; Pulse 61; Resp 16; Pulse Ox 100% on ETT vent; FiO2 100 %; ph 18:30 BP 104 / 70; Pulse 61; Resp 16; Pulse Ox 100% on ETT vent; FiO2 100 %; ph 19:00 BP 104 / 69; Pulse 59; Resp 16; Pulse Ox 100% on ETT vent; FiO2 100 %; al5 19:10 BP 104 / 69; Pulse 59; Resp 16; Pulse Ox 100% on ETT vent; FiO2 100 %; al5 19:20 BP 105 / 71; Pulse 59; Resp 16; Pulse Ox 100% on ETT vent; FiO2 100 %; al5 19:30 BP 104 / 69; Pulse 59; Resp 16; Pulse Ox 100% on ETT vent; FiO2 100 %; al5 19:40 BP 102 / 69; Pulse 59; Resp 16; Pulse Ox 100% on ETT vent; FiO2 100 %; al5 19:50 BP 101 / 70; Pulse 58; Resp 16; Pulse Ox 100% on ETT vent; FiO2 100 %; al5 20:00 BP 98 / 63; Pulse 58; Resp 16; Pulse Ox 100% on ETT vent; FiO2 100 %; al5 20:00 BP 110 / 75; Pulse 63; Resp 16; Pulse Ox 100% on ETT vent; FiO2 100 %; al5 13:17 Pain Scale: Adult ld1 [place] Coma Score: 14:18 Eye Response: none(1). Modifying Factors: Intubated. Modifying Factors: Medicated. ph Motor Response: none(1). Verbal Response: none(1). Total: 3. Procedures: 14:10 Intubation: Intubated orally using # 4 Lu blade with 7.0 mm ETT. was successful ms3 on first attempt. Ventilated with Ambu bag. ventilator. Cricoid pressure applied during procedure. Tube secured with ETT rayo Placement verified by CO2 detector with (+) color change, auscultating bilateral breath sounds, O2 saturation after procedure was 100 %. Patient tolerated well. MDM: 13:06 Patient medically screened. ms3 13:21 Differential diagnosis: cerebral vascular accident, cardiac arrhythmia, seizure, ms3 Medication noncompliance. ED course: Patient's states patient did not take her Keppra or Vimpat today. 15:26 Data reviewed: vital signs, nurses notes, lab test result(s), EKG, radiologic studies, ms3 and as a result, I will transfer patient. Management of patient was discussed with the following: Neuro ICU Dr Reynolds. I considered the following discharge prescriptions or medication management in the emergency department Medications were administered in the Emergency Department. See MAR. Independent interpretation of the following test(s) in the Emergency Department CT Scan: My interpretation is CT head without contrast images reviewed do not reveal ICH. Historians other than the Patient: EMS: [facility]. Spouse/Significant Other: Patient's . Care significantly affected by the following chronic conditions:. Counseling: I had a detailed discussion with the patient and/or guardian regarding the historical points, exam findings, and any diagnostic results supporting the discharge/admit diagnosis, lab results, radiology results, the need to transfer to another facility, for higher level of care. Response to treatment: the patient's symptoms have markedly improved after treatment, and as a result, I will transfer patient. 17:32 ED course: [facility] called back with change in ICU as bed not available in neuro ICU. . 3 01/20 07:06 ED course: Addendum Order: Vimpat 200 mg IV x 1. ms3 01/19 13:04 Order name: Basic Metabolic Panel; Complete Time: 13:42 ms3 01/19 13:04 Order name: CBC with Diff; Complete Time: 13:42 ms3 01/19 13:04 Order name: Protime (+inr); Complete Time: 14:39 ms3 01/19 13:04 Order name: Ptt, Activated; Complete Time: 14:39 ms3 01/19 13:04 Order name: Urinalysis w/ reflexes; Complete Time: 13:42 ms3 01/19 13:04 Order name: CT Head Brain wo Cont; Complete Time: 14:39 ms3 01/19 13:04 Order name: CXR XRAY; Complete Time: 15:22 ms3 01/19 13:04 Order name: EKG; Complete Time: 13:04 ms3 01/19 13:04 Order name: Accucheck; Complete Time: 13:17 ms3 01/19 13:04 Order name: Cardiac monitoring; Complete Time: 13:17 ms3 01/19 13:04 Order name: EKG - Nurse/Tech; Complete Time: 13:17 ms3 01/19 13:04 Order name: IV Saline Lock; Complete Time: 13:17 ms3 01/19 13:04 Order name: Labs collected and sent; Complete Time: 13:17 ms3 01/19 13:04 Order name: NPO; Complete Time: 13:17 ms3 01/19 13:04 Order name: O2 Per Protocol; Complete Time: 13:05 ms3 01/19 13:04 Order name: O2 Sat Monitoring; Complete Time: 13:05 ms3 01/19 13:26 Order name: Labs - recollect needed: recollect blue top; Complete Time: 14:56 bd EC/27 13:32 Rate is 77 beats/min. Rhythm is regular. QRS [place] is Normal. DE interval is normal. QRS ms3 interval is normal. Clinical impression: NSR w/ Non-specific ST/T Changes. Interpreted by me. Reviewed by me. Administered Medications: 13:05 Drug: Midazolam IVP or IV 5 mg IVP once Route: IVP; Site: right hand; mb9 14:04 Follow up: Response: No adverse reaction ld1 13:05 Drug: Keppra IV 1000 mg IV at calculated rate once Route: IV; Rate: calculated rate; mb9 Site: right hand; 14:04 Follow up: Response: No adverse reaction; IV Status: Completed infusion ld1 13:10 Drug: Midazolam IVP or IV 5 mg IVP once Route: IVP; Site: left antecubital; mb9 14:04 Follow up: Response: No adverse reaction ld1 13:25 CANCELLED (Physician Discretion): morphineor iv 4 mg IVP once over 4 mins ms3 13:47 Drug: Midazolam IVP or IV 5 mg IVP once Route: IVP; Site: left antecubital; ld1 14:04 Follow up: Response: No adverse reaction ld1 13:57 Drug: Propofol IVP 1 mg/kg IVP once; Document RASS score. Route: IVP; Site: left ph antecubital; 14:00 Follow up: Response: No adverse reaction; Patient is sedated ph 13:57 Drug: Succinylcholine IVP 1.5 mg/kg IVP once Route: IVP; Site: left antecubital; ph 14:00 Follow up: Response: No adverse reaction ph 14:11 Drug: Vimpat IV 100 mg IV at calculated rate once; administer over 30-60 minutes; (mix ph in 100 mL NS) Route: IV; Rate: calculated rate; Site: right hand; 14:15 Follow up: Pt recieved [address] Hdez ph 14:45 Follow up: Response: No adverse reaction; IV Status: Completed infusion ph 14:16 Drug: Propofol IV 5 mcg/kg/min IV at calculated rate See Administration Instructions; ph Standard concentration 1000 mg / 100 mL; Recommended max rate 50 mcg/kg/min; Titrate 2 mcg/kg/min every 5 minutes to achieve goal (see titration policy); Goal parameter RASS score 0 to -2 {Note: start drip at 30 mcg/kg/min per Dr Hdez, .} Route: IV; Rate: calculated rate; Site: left antecubital; 15:55 Follow up: Rate change 40 mcg/kg/min tm6 16:00 Follow up: Rate change 50 mcg/kg/min tm6 18:45 Follow up: Response: No adverse reaction; IV Status: Infusion continued upon transfer ph 20:19 Follow up: Response: No adverse reaction; Medication Administered at Departure; IV al5 Status: Infusion continued upon transfer 14:45 Drug: NS 0.9% IV 500 ml IV at bolus once Route: IV; Rate: bolus; Site: right hand; ph 15:30 Follow up: Response: No adverse reaction; IV Status: Completed infusion; IV Intake: ph 500ml 17:50 Drug: Rocephin IV 1 grams IV at calculated rate once; Given slow IV push per pharmacy ph instructions Route: IV; Rate: calculated rate; Site: right hand; 18:00 Follow up: Response: No adverse reaction; IV Status: Completed infusion ph 20:09 Drug: Propofol IV 5 mcg/kg/min IV at calculated rate See Administration Instructions; al5 Standard concentration 1000 mg / 100 mL; Recommended max rate 50 mcg/kg/min; Titrate 2 mcg/kg/min every 5 minutes to achieve goal (see titration policy); Goal parameter RASS score 0 to -2 Route: IV; Rate: calculated rate; Site: right antecubital; 20:10 Follow up: Response: No adverse reaction; Medication Administered at Departure al5 20:19 Follow up: Response: No adverse reaction; Medication Administered at Departure; IV al5 Status: Infusion continued upon transfer 20:19 Drug: NS 0.9% IV 1000 ml IV at 100 ml/hr once Route: IV; Rate: 100 ml/hr; Site: right al5 hand; 20:19 Follow up: Response: No adverse reaction; Medication Administered at Departure al5 20:19 Follow up: Response: No adverse reaction; Medication Administered at Departure; IV al5 Status: Infusion continued upon transfer 20:19 Follow up: Response: No adverse reaction; Medication Administered at Departure; IV al5 Status: Infusion continued upon transfer Disposition: 15:33 Chart complete. ms3 Disposition Summary: 01/20/24 15:01 Transfer Ordered Notes: Transfer Location: [facility] ms3 Reason: Higher level of care ms3 Condition: Stable ms3 Problem: new ms3 Symptoms: are unchanged ms3 Accepting Physician: (01/20/24 20:47) vc1 Diagnosis - Epilepsy, unspecified, intractable, with status epilepticus ms3 Forms: - Medication Reconciliation Form ms3 - SBAR form ms3 Critical care time excluding procedures: 14:11 Critical care time: Bedside Care: 50 minutes, Family Intervention: 5 minutes. Total ms3 time: 55 minutes Signatures: Dispatcher [employer] EDMS Conchita Mejia Irene, RN LIZZY iw Chayo Hyde RN LIZZY ph Peng Hdez DO DO ms3 Princess Hdez RN RN ld1 Ladonna Soria RN RN 1 Caitlin Gómez RN RN mb9 Heidi Sarkar RN RN al5 Delma Decker RN tm6 Corrections: (The following items were deleted from the chart) 13:04 13:04 BASIC METABOLIC PANEL+C.LAB.BRZ ordered. EDMS EDMS 13:04 13:04 CBC+H.LAB.BRZ ordered. EDMS EDMS 13:04 13:04 PROTIME (+INR)+COAG.LAB.BRZ ordered. EDMS EDMS 13:04 13:04 PTT, ACTIVATED+COAG.LAB.BRZ ordered. EDMS EDMS 13:04 13:04 Urinalysis+U.LAB.BRZ ordered. EDMS EDMS 13:25 13:19 morphine IVP or IV 4 mg IVP once over 4 mins ordered. ms3 ms3 13:25 13:24 morphine IVP or IV 4 mg IVP once over 4 mins ordered. ms3 ms3 14:56 13:04 Stroke Swallow Screen ordered. ms3 ph 20:47 15:01 ms3 vc1
--- NOTE | 2024-01-20 15:03 | RAD REPORT ---
EXAM DESCRIPTION: RAD - Chest Single View - 01/20/2024 2:39 pm CLINICAL HISTORY: seizure COMPARISON: Chest Single View dated 12/15/2023; Chest Single View dated 09/17/2023; Chest Single View dated 07/25/2023; Chest Single View dated 07/06/2023 FINDINGS: Lines: Endotracheal tube in satisfactory position at the clavicular heads. Enteric tube in the stomach. Lungs: Mild decrease in lung volumes with mild basilar opacities. Pleural: No significant pleural effusions or pneumothorax. Cardiac: Similar size and configuration . Mediastinum: Within normal limits. Bones: No acute fractures. Other: None IMPRESSION: Endotracheal tube and enteric tube in satisfactory position. Low lung volumes with proba ble atelectasis.
[2024-01-20] MEDS ORDERED: CEFTRIAXONE 1000 MG/VIAL ONE (17:41)
[2024-01-20 21:38] VITALS: TEMP 97.9
[2024-01-20 21:39] VITALS: O2SAT 100
[2024-01-20 21:57] VITALS: BP 104/70
--- NOTE | 2024-01-22 12:59 | EKG ---
Test Date: 2024-01-20 Test Time: 13:11:38 Digital Design Engineer: Ann ALEXANDER MEASUREMENT RESULTS: Intervals: Rate: 77 NM: 136 QRSD: 76 QT: 386 QTc: 436 [place]: P: 67 NM: 136 QRS: 130 T: -13 INTERPRETIVE STATEMENTS: Normal sinus rhythm Nonspecific ST and T wave abnormality Abnormal ECG Compared to ECG 12/15/2023 14:10:30 ST (T wave) deviation now present T-wave abnormality no longer present Electronically Signed On 01-22-24 12:56:01 CDT by Tigre Ryan
== END 2024-01-20 20:47 | disposition short-term general hospital (02) ==
LOC: ER 12:50
DX: G40.911 Epilepsy, unspecified, intractable, with status epilepticus (principal); Z86.73 Personal history of transient ischemic attack (TIA), and cerebral infarction without residual deficits
CPT/HCPCS: 93005; 85025; 81001; 80048; 36415; 85610; 85730; 70450; 71045; 94002; 31500; J2704 ×4; J2250 ×3; J1953; C9254; J0282; J7030 ×2; J0696; 99291

== ENCOUNTER 2025-01-03 15:21 | Emergency (ER) | payer SELFPAY ==
[2025-01-03] MEDS ORDERED: NA CHLORIDE 0.9% 1,000 ML ONE (15:35)
[2025-01-03] MEDS ORDERED: FOLIC ACID 5 MG/ML VIAL ONE (15:36)
--- NOTE | 2025-01-03 15:43 | RAD REPORT ---
EXAMINATION: Ct Stroke Brain Wo Cont CLINICAL INDICATION: Female, 44 years old.STROKE ALERT TECHNIQUE: Axial CT images from the skull base to the vertex without intravenous contrast. Coronal an d sagittal reformatted images were created from the data set. One or more of the following dose reduction techniques were used: Automated exposure control, adjustment of the mA and/or kV according to patient size, and/or iterative reconstruction. Unless otherwise specified, incidental findings do not require dedicated imaging follow-up. [id number]. COMPARISON: No prior exams FINDINGS: INTRACRANIAL: No acute intracranial hemorrhage. No acute large vascular territory infarct. No hydroce phalus. No mass effect or midline shift. No significant white matter disease. VASCULATURE: No visualized abnormalities in the arteries or dural venous sinuses. SCALP/SKULL: No calvarial fracture identified. No acute soft tissue abnormality. SINUSES: The visualized paranasal sinuses are mostly clear. No significant mastoid fluid. IMPRESSION: No acute intracranial abnormality. The findings were communicated to Dr. Sanchez on 01/03/2025 3:37 PM.
--- NOTE | 2025-01-03 16:01 | RAD REPORT ---
EXAMINATION: Neck Angio CLINICAL INDICATION: Female, 44 years old. PAIN TECHNIQUE: Axial CT images were obtained from the aortic arch to the skull base after intravenous con trast utilizing angiographic protocol with 3D post-processing (maximum intensity projection images, volume rendered images and/or shaded surface rendered images). One or more of the following dose redu ction techniques were used: Automated exposure control, adjustment of the mA and/or kV according to patient size, and/or iterative reconstruction. Unless otherwise specified, incidental findings do not require dedicated imaging follow-up. [id number]. NASCET criteria used. Mild 0-49% stenosis Moderate 50-69% stenosis Severe 70-99% stenosis COMPARISON: 07/25/2023 FINDINGS: AORTA: Atherosclerotic changes but otherwise unremarkable. RIGHT: - CCA: No flow limiting stenosis (>= 50%). No dissection. - ICA: No flow limiting stenosis (>= 50%). No dissection. - ECA: No flow limiting stenosis (>= 50%). No dissection. LEFT: - CCA: No flow limiting stenosis (>= 50%). No dissection. - ICA: No flow limiting stenosis (>= 50%). No dissection. - ECA: No flow limiting stenosis (>= 50%). No dissection. VERTEBRAL: Patent SOFT TISSUE: No significant neck soft tissue abnormalities. The visualized lung apices are clear. 3D images confirm these findings. IMPRESSION: No arterial dissection or stenosis identified within the neck.
--- NOTE | 2025-01-03 16:02 | RAD REPORT ---
EXAMINATION: Head angio CLINICAL INDICATION: Female, 44 years old. STROKE ALERT TECHNIQUE: Axial CT images were obtained through the head after intravenous contrast utilizing angiog raphic protocol with 3D post-processing (maximum intensity projection images, volume rendered images and/or shaded surface rendered images). One or more of the following dose reduction technique s were used: Automated exposure control, adjustment of the mA and/or kV according to patient size, and/or iterative reconstruction. Unless otherwise specified, incidental findings do not require dedic ated imaging follow-up. COMPARISON: 07/25/2023 FINDINGS: RIGHT: ICA: No aneurysm, stenosis, or dissection. SONYA: No aneurysm, stenosis, or dissection. MCA: No aneurysm, stenosis, or dissection. IRON GUARDRAIL INSTALLER: No aneurysm, stenosis, or dissection. LEFT: ICA: No aneurysm, stenosis, or dissection. SONYA: No aneurysm, stenosis, or dissection. MCA: No aneurysm, stenosis, or dissection. IRON GUARDRAIL INSTALLER: No aneurysm, stenosis, or dissection. Vertebrobasilar: The vertebral arteries are patent. The basilar artery is normal in appearance. 3D images confirm these findings. IMPRESSION: No occlusion, aneurysm, or hemodynamically significant stenosis identified.
[2025-01-03] MEDS ORDERED: TENECTEPLASE 50 MG/10 ML VIAL IV ONE (16:05)
--- NOTE | 2025-01-03 16:12 | EDPHYS ---
Physician Documentation [facility] Name: Naz Boyle Age: 44 yrs Sex: Female : 1980 Arrival Date: 01/03/2025 Time: 15:21 Bed 16 Private MD: BRYSON Physician Pramod Sanchez HPI: 01/03 15:59 This 44 yrs old Female presents to ER via Unassigned with complaints of S/S anneliese of Possible Stroke. 16:01 The patient's problem is reported as paresthesias, in left upper extremity, dysphasia, anneliese weakness, in the left upper extremity. Onset: The symptoms/episode began/occurred at an unknown time. LAST NORMAL NORMAL. Duration: The episode is continuous. Context: the episode(s) was witnessed, by a bystander, by a daycare worker, by EMS personnel, by family, by the [facility] staff, by a significant other, , occurred at home. The symptoms are alleviated by nothing. The symptoms are aggravated by nothing. Associated signs and symptoms: Pertinent positives: lightheadedness, LEFT ARM FLACCID , NO VISION LEFT EYE, NO SPEECH. Severity of symptoms: At their worst the symptoms were moderate in the emergency department the symptoms are unchanged. Patient's baseline: Neuro: alert and fully oriented. The patient has not experienced similar symptoms in the past. Historical: - Allergies: 16:00 Prednisone; rg5 - PMHx: 16:00 Anxiety; BRADYCARDIA; CVA; Hypercholesterolemia; hypotension; Hypothyroidism; Lupus rg5 erythematosus; Migraine; Neurogenic bladder; PERIPHERAL NEUROPATHY; PTSD; RA; RLS; Seizure; Sleep Apnea; SVT; - PSHx: 16:00 Appendectomy; Carpal tunnel luis miguel; section; Cholecystectomy; hysterectomy; rg5 - Immunization history:: Adult Immunizations not up to date. - Infectious Disease History:: Denies. - Family history:: not pertinent. - Social history:: Smoking status: Reported history of juuling and/or vaping. ROS: 16:01 Constitutional: Negative for fever, chills, and weight loss, ENT: Negative for injury, anneliese pain, and discharge, Neck: Negative for injury, pain, and swelling, Cardiovascular: Negative for chest pain, palpitations, and edema, Respiratory: Negative for shortness of breath, cough, wheezing, and pleuritic chest pain, Abdomen/GI: Negative for abdominal pain, nausea, vomiting, diarrhea, and constipation, Back: Negative for injury and pain, : Negative for injury, bleeding, discharge, and swelling, Skin: Negative for injury, rash, and discoloration, Psych: Negative for depression, anxiety, suicide ideation, homicidal ideation, and hallucinations, Allergy/Immunology: Negative for hives, rash, and allergies, Endocrine: Negative for neck swelling, polydipsia, polyuria, polyphagia, and marked weight changes, Hematologic/Lymphatic: Negative for swollen nodes, abnormal bleeding, and unusual bruising, 16:01 Eyes: Positive for vision loss, of the iris of left eye, 16:01 Neuro: Positive for speech changes, weakness, of the left arm, Exam: 16:01 Constitutional: This is a well developed, well nourished patient who is awake, alert, anneliese and in no acute distress. Head/Face: Normocephalic, atraumatic. Eyes: Pupils equal round and reactive to light, extra-ocular motions intact. Lids and lashes normal. Conjunctiva and sclera are non-icteric and not injected. Cornea within normal limits. Periorbital areas with no swelling, redness, or edema. ENT: Nares patent. No nasal discharge, no septal abnormalities noted. Tympanic membranes are normal and external auditory canals are clear. Oropharynx with no redness, swelling, or masses, exudates, or evidence of obstruction, uvula midline. Mucous membranes moist. Neck: Trachea midline, no thyromegaly or masses palpated, and no cervical lymphadenopathy. Supple, full range of motion without nuchal rigidity, or vertebral point tenderness. No Meningismus. Chest/axilla: Normal chest wall appearance and motion. Nontender with no deformity. No lesions are appreciated. Cardiovascular: Regular rate and rhythm with a normal S1 and S2. No gallops, murmurs, or rubs. Normal PMI, no JVD. No pulse deficits. Respiratory: Lungs have equal breath sounds bilaterally, clear to auscultation and percussion. No rales, rhonchi or wheezes noted. No increased work of breathing, no retractions or nasal flaring. Abdomen/GI: Soft, non-tender, with normal bowel sounds. No distension or tympany. No guarding or rebound. No evidence of tenderness throughout. Back: No spinal tenderness. No costovertebral tenderness. Full range of motion. Skin: Warm, dry with normal turgor. Normal color with no rashes, no lesions, and no evidence of cellulitis. Psych: Awake, alert, with orientation to person, place and time. Behavior, mood, and affect are within normal limits. 16:01 Musculoskeletal/extremity: Extremities: decreased ROM, ROM: FLACCID LEFT ARM, Circulation is intact in all extremities. Sensation intact. Compartment Syndrome exam of affected extremity: is normal. DVT Exam: no pain, no swelling, no tenderness, negative Homans' sign noted on exam, no appreciated bluish discoloration, no erythema, no increased warmth, 16:07 Radiologist reports: NEG CT, CT A NEG [facility] 16:23 ECG was reviewed by the Attending Physician. [facility] Vital Signs: 15:51 BP 154 / 98; Pulse 67; Resp 18; Temp 98; Pulse Ox 98% ; Weight 123.38 kg; Height 13 ft. rg5 4 in. ; 15:51 Body Mass Index 7.47 (123.38 kg, 406.4 cm) rg5 NIH Stroke Scale Scores: 17:32 NIHSS Score: 22 rg5 MDM: 15:29 Medical Screening Exam initiated [facility] 16:12 Differential diagnosis: CVA, TIA, Dementia. Data reviewed: vital signs, nurses notes, [facility] lab test result(s), EKG, radiologic studies, CT scan, plain films. Consideration of Admission/Observation Escalation of care including admission/observation considered. I considered the following discharge prescriptions or medication management in the emergency department Medications were administered in the Emergency Department. See MAR. Independent interpretation of the following test(s) in the Emergency Department EKG: See my EKG interpretation above. Test considered but Not performed: MRI: NO MRI. Historians other than the Patient: Spouse/Significant Other: WELL INFORMED. Care significantly affected by the following chronic conditions: Diabetes, Hypertension, Obesity. 16:14 TNKase (Tenecteplase) Screening: Indications: Definite evidence of stroke, ischemic, anneliese embolic, or hypertensive: Yes. Treatment will start within 4.5 hours onset of symptoms: Yes. No evidence of intracranial hemorrhage or CT of head and no evidence of peripheral hemorrhage or recent CVA: Yes. Consent for thrombolytic therapy: Yes. Contraindications: Other: NONE, JORJE YES GIVE. Counseling: I had a detailed discussion with the patient and/or guardian regarding the historical points, exam findings, and any diagnostic results supporting the discharge/admit diagnosis, the presence of at least one elevated blood pressure reading (>120/80) during this emergency department visit, lab results, radiology results, the need to transfer to another facility, for higher level of care, [facility] does not immediately have the required specialist. 01/03 15:31 Order name: Basic Metabolic Panel; Complete Time: 17:04 [facility] 01/03 15:31 Order name: CBC with Diff; Complete Time: 17:04 [facility] 01/03 15:31 Order name: LFT's; Complete Time: 17: [facility] 01/03 15:31 Order name: Magnesium; Complete Time: 17: [facility] 01/03 15:31 Order name: NT PRO-BNP; Complete Time: 17: [facility] 01/03 15:31 Order name: PT-INR; Complete Time: 17: [facility] 01/03 15:31 Order name: Troponin HS; Complete Time: 17: [facility] 01/03 16:23 Order name: Glucose, Ancillary Testing; Complete Time: 17:04 EDMS 01/03 15:31 Order name: XRAY Chest (1 view); Complete Time: 17:04 [facility] 01/03 15:31 Order name: CT Stroke Brain w/o Contrast; Complete Time: 15:59 [facility] 01/03 15:31 Order name: CT Head Angio; Complete Time: 17:04 [facility] 01/03 15:31 Order name: CT Neck Angio; Complete Time: 17:04 [facility] 01/03 15:31 Order name: EKG; Complete Time: 15:32 [facility] 01/03 15:31 Order name: Cardiac monitoring; Complete Time: 16:25 [facility] 01/03 15:31 Order name: EKG - Nurse/Tech; Complete Time: 16:25 [facility] 01/03 15:31 Order name: IV Saline Lock; Complete Time: 16:25 [facility] 01/03 15:31 Order name: Labs collected and sent; Complete Time: 17: [facility] 01/03 15:31 Order name: O2 Per Protocol; Complete Time: 17: [facility] 01/03 15:31 Order name: O2 Sat Monitoring; Complete Time: 17:01 [facility] EC:23 Rate is 73 beats/min. Rhythm is regular. QRS [place] is Normal. CA interval is normal. QRS anneliese interval is normal. QT interval is normal. No Q waves. T waves are Normal. No ST changes noted. Clinical impression: NSR w/ Non-specific ST/T Changes and No evidence of ischemia. Interpreted by me. Reviewed by me. Administered Medications: 15:53 Drug: NS 0.9% IV 1000 ml IV at 1000 ml once; to be given as a bolus over 60 minutes rg5 Route: IV; Rate: 1000 ml; Site: right antecubital; 16:40 Follow up: IV Status: Completed infusion; IV Intake: 1000ml rg5 15:53 Drug: foLIC Acid IVPB 1 mg IVPB once Route: IVPB; Site: right antecubital; rg5 16:30 Follow up: IV Status: Completed infusion rg5 16:10 Drug: TNK FOR STROKE - Tenecteplase IV (Administer 10 ml NS flush BEFORE and rg5 AFTER tenecteplase) 0.25 mg/kg IV at per protocol once; 0.25mg/kg, MAX DOSE 25 mg, IVP over 5 seconds {Co-Signature: iw (Carmina Abbasi RN).} Route: IV; Rate: per protocol; Site: right antecubital; 16:15 Follow up: IV Status: Completed infusion rg5 Point of Care Testing: Blood Glucose: 16:00 Blood Glucose: 80 mg/dL; rg5 Ranges: Critical Glucose Levels:Adult <50 mg/dl or >400 mg/dl <40 mg/dl or >180 mg/dl Disposition Summary: 01/03/25 16:12 Transfer Ordered Notes: Transfer Location: [facility] anneliese Reason: Higher level of care anneliese Condition: Stable anneliese Problem: new anneliese Symptoms: have improved anneliese Accepting Physician: DR ANDRE(01/03/25 18:02) rg5 Diagnosis - Cerebral infarction, unspecified - ACUTE LEFT ARM PARALYSIS, LEFT EYE VISION LOSS anneliese - Aphasia following cerebral infarction anneliese Forms: - Medication Reconciliation Form anneliese - SBAR form anneliese NIH Stroke Scale - NIH Stroke Score Date: 01/03/2025 Time: 17:32 Total Score = 22 10. Dysarthria (speech clarity - read or repeat words) - 2(Severe) 11. Extinction and Inattention (visual/tactile/auditory/spatial/personal) - 1(Present) 1a. Level of Consciousness (LOC) - 1(Not Alert) 1b. Level of Consciousness (LOC) (Month \T\ Age) - 2(Neither) 1c. LOC Commands (Open \T\ Closes Eyes/Golf Ball Trimmer) - 1(One) 2. Best Gaze (Lateral Gaze Paresis) - 0(Normal) 3. Visual Field Loss - 1(Partial hemianopia) 4. Facial Palsy - 2(Partial paralysis) 5a. Left Arm: Motor (10-second hold) - 3(No effort against gravity) 5b. Right Arm: Motor (10-second hold) - 1(Drift) 6a. Left Leg: Motor (5-second hold - always test supine) - 3(No effort against gravity) 6b. Right Leg: Motor (5-second hold - always test supine) - 1(Drift) 7. Limb Ataxia (finger/nose \T\ heel/gould - test with eyes open) - 1(Present in one limb) 8. Sensory Loss (pinprick arms/legs/face) - 1(Mild to moderate loss) 9. Best Language: Aphasia (description/naming/reading) - 2(Severe aphasia) Initials: rg5 Signatures: Dispatcher [employer] Pramod Eugene MD MD cha Gallardo, Rommel, RN RN rg5 Carmina Abbasi RN Corrections: (The following items were deleted from the chart) 18:02 16:12 DR THAI [email or web address]
--- NOTE | 2025-01-03 16:12 | ER ---
Nurse's Notes [facility] Name: Naz Boyle Age: 44 yrs Sex: Female : 1980 Arrival Date: 01/03/2025 Time: 15:21 Bed 16 Private MD: Diagnosis: Cerebral infarction, unspecified-ACUTE LEFT ARM PARALYSIS, LEFT EYE VISION LOSS;Aphasia following cerebral infarction Presentation: 01/03 16:00 Chief complaint: Spouse and/or significant other states: she has previous stroke with rg5 left sided weakness, but she is more weak, can't move her left arm \T\ feet and she wasn't able to talk. Coronavirus screen: Client denies travel out of the [place] in the last 14 days. Client indicates they have traveled out of the [place] in the last 14 days. Ebola Screen: Patient negative for fever greater than or equal to 101.5 degrees Fahrenheit, and additional compatible Ebola Virus Disease symptoms Patient denies exposure to infectious person. Patient denies travel to an Ebola-affected area in the 21 days before illness onset. An acute neurological deficit is present. The charge nurse has been notified. Initial Sepsis Screen: Does the patient meet any 2 criteria? No. Patient's initial sepsis screen is negative. Does the patient have a suspected source of infection? No. Patient's initial sepsis screen is negative. Risk Assessment: Do you want to hurt yourself or someone else? Patient reports no desire to harm self or others. Onset of symptoms was January 03, 2025. 16:00 Method Of Arrival: Wheelchair rg5 16:00 Acuity: MIGUEL 2 rg5 Triage Assessment: 16:00 The onset of the patients symptoms was January 03, 2025 at 14:30. General: Appears rg5 uncomfortable, Behavior is calm, quiet. Pain: Denies pain. Neuro: Level of Consciousness is awake, Oriented to person, place, time, situation, Appropriate for age Inspector Golf Ball are weak on left Weakness leg(s) Gait is unsteady, Speech with expressive aphasia noted, Numbness in left arm and left leg Reports blurred vision numbness weakness in left arm, right leg and left leg. Cardiovascular: Denies chest pain, Patient's skin is warm and dry. Rhythm is sinus rhythm. Respiratory: Airway is patent Respiratory effort is even, unlabored, Respiratory pattern is regular, symmetrical, Breath sounds are clear. GI: Abdomen is round non-distended, Abd is soft and non tender. : No signs and/or symptoms were reported regarding the genitourinary system. Derm: Skin is intact, Skin is dry, Skin is normal, Skin temperature is warm. Musculoskeletal: Circulation, motion, and sensation intact. Range of motion: intact in right arm. Historical: - Allergies: 16:00 Prednisone; rg5 - PMHx: 16:00 Anxiety; BRADYCARDIA; CVA; Hypercholesterolemia; hypotension; Hypothyroidism; Lupus rg5 erythematosus; Migraine; Neurogenic bladder; PERIPHERAL NEUROPATHY; PTSD; RA; RLS; Seizure; Sleep Apnea; SVT; - PSHx: 16:00 Appendectomy; Carpal tunnel luis miguel; section; Cholecystectomy; hysterectomy; rg5 - Immunization history:: Adult Immunizations not up to date. - Infectious Disease History:: Denies. - Family history:: not pertinent. - Social history:: Smoking status: Reported history of juuling and/or vaping. Screenin:00 [facility] ED Fall Risk Assessment (Adult) History of falling in the last 3 months, rg5 including since admission No falls in past 3 months (0 pts) Confusion or Disorientation Yes (5 pts) Intoxicated or Sedated No (0 pts) Impaired Gait Yes (1 pt) Mobility Assist Device Used Yes (1 pt) Altered Elimination Yes (1 pt) Score/Fall Risk Level 3 or more points = High Risk Oriented to surroundings, Maintained a safe environment, Provided non-skid footwear, Hourly rounding (assess needs \T\ fall precautionary measures) done. 16:00 Abuse screen: Denies threats or abuse. Nutritional screening: No deficits noted. rg5 Tuberculosis screening: No symptoms or risk factors identified. Assessment: 15:46 Reassessment: pt in ER room 16 now. iw 16:00 VAN Scoring: Arm Drift: Flaccid/no antigravity Visual Disturbance: Blind (new onset) rg5 reported. Provider notified of +VAN scoring. Vy Swallow Protocol 3 oz Water Swallow Challenge:. [place] Swallow Protocol Exclusion Criteria: No thin liquids due to preexisting dysphagia/baseline modified diet thickened liquids Brief Cognitive Screen What is your name? Where are you right now? What year is it? Oral Mechanism Examination Facial Symmetry: Abnormal Motion: Abnormal Lip Closure: Abnormal Oral Mechanism Result: Abnormal: . Result: FAIL MD Notified: Pramod Sanchez MD. 16:10 Reassessment: TNK consent form signed by pt's , witnessed by myself and britt Brizuela RN, TNK 25 mg administered to RAC at 1610, LIZZY Brizuela at bedside to monitor. 16:10 TNKase (Tenecteplase) Screening: Indications: Definite evidence of stroke, ischemic, rg5 embolic, or hypertensive: Yes. Treatment will start within 4.5 hours onset of symptoms: Yes. No evidence of intracranial hemorrhage or CT of head and no evidence of peripheral hemorrhage or recent CVA: Yes. Consent for thrombolytic therapy: Yes. Vital Signs: 15:51 BP 154 / 98; Pulse 67; Resp 18; Temp 98; Pulse Ox 98% ; Weight 123.38 kg; Height 13 ft. rg5 4 in. ; 15:51 Body Mass Index 7.47 (123.38 kg, 406.4 cm) rg5 NIH Stroke Scale Scores: 17:32 NIHSS Score: 22 rg5 ED Course: 15:22 Patient arrived in ED. im 15:25 Gelacio Delong, LIZZY is Primary Nurse. rg5 15:29 Pramod Sanchez MD is Attending Physician. anneliese 15:34 CT Stroke Brain w/o Contrast In Process Unspecified. EDMS 15:40 CT Head Angio In Process Unspecified. EDMS 15:40 CT Neck Angio In Process Unspecified. EDMS 16:00 Inserted saline lock: 22 gauge in right antecubital area, using aseptic technique. rg5 Blood collected. Flushed with 10 mL NS. 16:00 Patient has correct armband on for positive identification. Bed in low position. Call rg5 light in reach. Side rails up X2. Adult w/ patient. Door closed. Noise minimized. Warm blanket given. 16:08 XRAY Chest (1 view) In Process Unspecified. EDMS 16:35 Inserted saline lock: 22 gauge in left hand, using aseptic technique. Blood collected. rg5 Flushed with 10 mL NS 16:35 No provider procedures requiring assistance completed. rg5 17:11 Triage completed. rg5 18:00 Provided Education on: post er care. rg5 Administered Medications: 15:53 Drug: NS 0.9% IV 1000 ml IV at 1000 ml once; to be given as a bolus over 60 minutes rg5 Route: IV; Rate: 1000 ml; Site: right antecubital; 16:40 Follow up: IV Status: Completed infusion; IV Intake: 1000ml rg5 15:53 Drug: foLIC Acid IVPB 1 mg IVPB once Route: IVPB; Site: right antecubital; rg5 16:30 Follow up: IV Status: Completed infusion rg5 16:10 Drug: TNK FOR STROKE - Tenecteplase IV (Administer 10 ml NS flush BEFORE and rg5 AFTER tenecteplase) 0.25 mg/kg IV at per protocol once; 0.25mg/kg, MAX DOSE 25 mg, IVP over 5 seconds {Co-Signature: iw (Carmina Abbasi RN).} Route: IV; Rate: per protocol; Site: right antecubital; 16:15 Follow up: IV Status: Completed infusion rg5 Medication: 16:23 VIS not applicable for this client. rg5 Point of Care Testing: Blood Glucose: 16:00 Blood Glucose: 80 mg/dL; rg5 Ranges: Intake: 16:40 IV: 1000ml; Total: 1000ml. rg5 Outcome: 16:12 ER care complete, transfer ordered by MD. coy 18:00 Transferred by ground EMS to [facility] [place], rg5 18:00 Condition: stable rg5 18:00 Discharge instructions given to EMS, Instructed on the need for transfer, Demonstrated understanding of 18:02 Patient left the ED. rg5 NIH Stroke Scale - NIH Stroke Score Date: 01/03/2025 Time: 17:32 Total Score = 22 10. Dysarthria (speech clarity - read or repeat words) - 2(Severe) 11. Extinction and Inattention (visual/tactile/auditory/spatial/personal) - 1(Present) 1a. Level of Consciousness (LOC) - 1(Not Alert) 1b. Level of Consciousness (LOC) (Month \T\ Age) - 2(Neither) 1c. LOC Commands (Open \T\ Closes Eyes/Toy Designer) - 1(One) 2. Best Gaze (Lateral Gaze Paresis) - 0(Normal) 3. Visual Field Loss - 1(Partial hemianopia) 4. Facial Palsy - 2(Partial paralysis) 5a. Left Arm: Motor (10-second hold) - 3(No effort against gravity) 5b. Right Arm: Motor (10-second hold) - 1(Drift) 6a. Left Leg: Motor (5-second hold - always test supine) - 3(No effort against gravity) 6b. Right Leg: Motor (5-second hold - always test supine) - 1(Drift) 7. Limb Ataxia (finger/nose \T\ heel/gould - test with eyes open) - 1(Present in one limb) 8. Sensory Loss (pinprick arms/legs/face) - 1(Mild to moderate loss) 9. Best Language: Aphasia (description/naming/reading) - 2(Severe aphasia) Initials: rg5 Signatures: Dispatcher [employer] EDPramod Capellan MD MD cha Williams, Irene, Shelley Lacy RN, Rommel, RN RN [facility] Carmina Abbasi RN Corrections: (The following items were deleted from the chart) 17:33 16:00 NIHSS Score: 19 [place] [address] 17:33 17:30 NIHSS Score: 20 [place] [address]
[2025-01-03 16:20] LABS: ALT/SGPT 36 U/L (13-56); AST/SGOT 26 U/L (15-37); Albumin 3.7 g/dL (3.4-5.0); Albumin/Globulin Ratio 0.9 (1.1-1.8); Alkaline Phosphatase 73 U/L (45-117); Anion Gap 9.7 mEq/L (5.0-15.0); BUN Blood Urea Nitrogen 7 mg/dL (7-18); Globulin 4.2 g/dL (2.3-3.5); Glucose Level 92 mg/dL (74-106); Magnesium 2.3 mg/dL (1.6-2.4); NT PRO-BNP 43 pg/mL (<125); Potassium 3.7 mEq/L (3.5-5.1)
[2025-01-03 16:21] LABS: Bilirubin Indirect, Calculated 0.2 mg/dL (0.2-0.8); Troponin High Sensitivity < 3.0 pg/mL (<58.9)
--- NOTE | 2025-01-03 16:43 | RAD REPORT ---
EXAM: Chest Single View HISTORY: 44 years Female COUGH COMPARISON: 12/26/2024 FINDINGS: LUNGS/PLEURA: The lungs are clear. No pleural effusions or pneumothorax. No pulmonary edema. CARDIAC/MEDIASTINUM: Mild cardiomegaly UPPER ABDOMEN: No significant abnormality. BONES: No acute abnormality. LINES/TUBES/OTHER: N/A IMPRESSION: No evidence of acute cardiopulmonary disease.
[2025-01-03 16:49] LABS: Absolute Lymphocytes (CBC) 2.4 K/uL (0.7-4.9); Hematocrit 37.4 % (36.0-45.0); Hemoglobin 12.6 g/dL (12.0-15.0); MCH 29.5 pg (27.0-35.0); MCHC 33.7 g/dL (32.0-36.0); MCV 87.4 fL (80-100); MPV 7.7 fL (7.6-11.3); Nucleated RBC Absolute Count 0.0 (0-0); Nucleated Red Blood Cells % 0.0 % (0-0); RBC Red Blood Cell Count 4.28 M/uL (3.86-4.86); White Blood Count 6.30 thou/uL (4.3-10.9)
[2025-01-03 16:55] LABS: PT Prothrombin Time 12.3 SECONDS (10-13.0); Protime INR 1.09
[2025-01-03 18:33] VITALS: BP 154/98; TEMP 98; O2SAT 98
== END 2025-01-03 18:02 | disposition short-term general hospital (02) ==
LOC: ER 15:21
DX: I63.9 Cerebral infarction, unspecified (principal); R47.01 Aphasia; R29.722 NIHSS score 22; Z86.73 Personal history of transient ischemic attack (TIA), and cerebral infarction without residual deficits
CPT/HCPCS: 36415; 70450; 70496; 70498; 71045; 80048; 80076; 82947; 83735; 83880; 84484; 85025; 85610; 92977; 93005; 96365; 96375; 99285; J3101; J7030; Q9967